=== PATIENT | female | born 1950 | race Caucasian/White ===

== ENCOUNTER 2018-08-25 16:52 | Inpatient (IN) ==
[2018-08-25] MEDS ORDERED: MoRPHine SULFATE 4 MG/ML 1 ML CARP\\VIAL IV STA (17:25)
[2018-08-25] MEDS ORDERED: SODIUM CHLORIDE 0.9% 1000ML 1,000 ML IV SCH (17:30)
[2018-08-25] MEDS ORDERED: ONDANSETRON INJ 2 MG/ML 2 ML VIAL ONE (17:58)
[2018-08-25 17:59] LABS: Basophils # (auto) 0.01 K/uL (0-0.2); Basophils % (auto) 0.1 %; Hemoglobin 11.4 g/dL (12.0-16.0); Immature Granulocytes # (auto) 0.04 K/uL (0.00-0.02); Immature Granulocytes % (auto) 0.3 %; Lymphocytes # (auto) 0.45 K/uL (1.2-3.4); Lymphocytes % (auto) 3.6 %; Mean Corpuscular Hgb Conc 32.6 g/dL (32-36); Mean Corpuscular Volume 90.2 fL (80-100); Mean Platelet Volume 9.3 fL (7.4-10.4); Monocytes % (auto) 5.6 %; Neutrophils # (auto) 11.34 K/uL (1.4-6.5); Neutrophils % (auto) 90.4 %; Platelet Count 360 K/uL (130-400); RDW Coefficient of Variation 15.8 % (11.5-14.5); RDW Standard Deviation 52.1 fL (36.4-46.3); Red Blood Count 3.88 M/uL (4.2-5.4); White Blood Count 12.54 K/uL (4.8-10.8)
[2018-08-25 18:07] LABS: Appearance Urine Clear (Clear); Bacteria Urine Automated Negative (Negative); Bilirubin Urine Negative (Negative); Blood Urine Negative (Negative); Cast Urine Automated 0 /lpf (0-5); Color Urine Yellow; Glucose Urine UA Negative (Negative); Ketones Urine Trace (Negative); Leukocyte Esterase Urine Negative (Negative); Nitrite Urine Negative (Negative); Protein Urine 2+ (Negative); RBC Urine Automated 0-4 /hpf (0-4); Urobilinogen Urine Negative (Negative); pH Urine 5.5 (4.5-7.5)
[2018-08-25] MEDS ORDERED: ONDANSETRON INJ 2 MG/ML 2 ML VIAL IV STA (18:15)
[2018-08-25 18:19] LABS: Alanine Aminotransferase 64 U/L (12-78); Albumin Level 3.7 gm/dl (3.4-5.0); Aspartate Aminotransferase 72 U/L (15-37); BUN Creatinine Ratio 17.9 (10-20); Blood Urea Nitrogen 19 mg/dl (7-18); Calcium 9.1 mg/dl (8.5-10.1); Carbon Dioxide 22 mmol/L (21-32); Chloride 101 mmol/L (98-107); Est GFR (African American) 62.8; Est GFR (Non-African American) 54.1; Glucose 125 mg/dl (70-99); Sodium 134 mmol/L (136-145)
[2018-08-25 18:24] LABS: Albumin Globulin Ratio 0.9 (0.9-2); Alkaline Phosphatase 101 U/L (45-117); Bilirubin,Total 1.2 mg/dl (0.2-1); Globulin 4.1 gm/dl (2.5-4.0); Total Protein 7.8 gm/dl (6.4-8.2); Troponin I < 0.015 ng/ml (0-0.045)
[2018-08-25] MEDS ORDERED: IOVERSOL 100ml IV PRN (18:43)
--- NOTE | 2018-08-25 19:24 | CT Scan Report ---
ABDOMEN AND PELVIS CT WITH IV CONTRAST CT DOSE: 322.60 mGy.cm HISTORY: Acute generalized abdominal pain diffuse ab pain TECHNIQUE: Multiaxial CT images of the abdomen and pelvis were performed following the use of intrave nous contrast. A dose lowering technique was utilized adhering to the principles of ALARA. COMPARISON STUDY: CT abdomen and pelvis 08/21/2017. FINDINGS: Subsegmental bibasilar atelectasis/scarring with moderate emphysema. Trace pleural effusions. Chronic moderate left hemidiaphragmatic elevation. Imaged inferior cardiac chambers are moderately enlarged with coronary arterial calcifications noted. Moderate gallbladder distention with mild gallbladder wall thickening. Suggested cyst of the right he patic lobe, 2.0 cm. Intrahepatic and extrahepatic biliary ductal dilation is noted with the common bi le duct measuring up to approximately 8 mm. No obstructing biliary stone or lesion identified. Hepati c steatosis with heterogeneous appearance of the hepatic parenchyma. Mild periportal edema. Mild amou nt of free fluid about the delon hepatis. Spleen, pancreas and adrenal glands are unremarkable. Marked atrophy with markedly decreased enhancement of the right kidney. Severe renal arterial stenosi s on the right. There is a least mild left-sided renal arterial stenosis with multifocal cortical sca rring about the left kidney. 10 mm left renal cyst about the interpolar distribution. Nonspecific amina ateral perinephric stranding. No renal or ureteral calculi. Urinary bladder is unremarkable. Prior hy sterectomy. No adnexal mass lesions. Pelvic structures are suboptimally visualized secondary to strea k artifact from left hip total joint arthroplasty. Extensive calcification of the abdominal aorta wit hout aneurysm. There is no adenopathy identified. Large volume pneumoperitoneum centered about the anterior central and upper abdomen. Mild gaseous dis tention of the duodenum. Wall thickening with moderate surrounding stranding and ascites is noted abo ut the gastric fundus and body. Pneumoperitoneum intermixed with ascites is noted measuring up to 6.8 x 3.8 cm and the left subdiaphragmatic distribution, image 65 series 3. There is a focal defect note d through the lesser curvature wall of the distal gastric body (image 258 series 3). The duodenum charlie ears unremarkable. There is mild rectal wall thickening. Colonic diverticulosis without acute diverti culitis. Trace ascites also noted about the pelvis. Mild generalized body wall edema. Left hip total joint arthroplasty. There is suggestion of minimal AVN about the right femoral head. Demineralized ap pearance the bones. Mild convex right curvature of the lumbar spine. Severe multilevel facet arthrosi s with spondylitic spurring. IMPRESSION: 1. Acute perforated gastric ulcer about the lesser curvature of the distal gastric body with large vo lume of upper abdominal pneumoperitoneum. Ascites intermixed with free air is noted about the left robert bdiaphragmatic distribution. There is no well loculated abscess identified at this time. Surgical con sultation is needed. 2. No bowel obstruction. 3. Colonic diverticulosis without acute diverticulitis. 4. Markedly atrophic right kidney with severe right-sided renal arterial stenosis. 5. Trace pleural effusions. 6. Additional findings as above. Electronically signed by: Chiki Brown M.D. 08/25/2018 7:22 PM
[2018-08-25] MEDS ORDERED: SODIUM CHLORIDE 0.9% 1000ML 1,000 ML IV ONE (19:28)
[2018-08-25] MEDS ORDERED: PIPERACILLIN/TAZOBACTAM 4.5 GM/120 ML BAG IV ONE (19:38)
[2018-08-25] MEDS ORDERED: PIPERACILL/TAZOBAC CONSULT ACTIVE PRN (19:38)
--- NOTE | 2018-08-25 19:49 | XRay Report ---
XR chest 1V portable HISTORY: 68 years-old Female sob acute shortness of breath COMPARISON: CT abdomen and pelvis of same day, chest radiograph 08/21/2018 TECHNIQUE: Portable AP view the chest FINDINGS: Cardiac silhouette is enlarged, unchanged. Calcification of the thoracic aortic arch. Chronic interst itial coarsening without pneumothorax, pleural effusion or overt pulmonary edema. Severe emphysema. L arge volume pneumoperitoneum. Degenerative changes of the shoulders and spine. IMPRESSION: 1. Large volume pneumoperitoneum. Please refer to CT abdomen and pelvis of same day for further detai ls. 2. Cardiomegaly without overt pulmonary edema. 3. Emphysema with chronic interstitial coarsening. The above report was generated using voice recognition software. It may contain grammatical, syntax o r spelling errors. Electronically signed by: Chiki Brown M.D. 08/25/2018 7:48 PM
[2018-08-25] MEDS ORDERED: PANTOprazole 80 MG in DEXTROSE 5% 100 ML IV ONE (20:00)
[2018-08-25] MEDS ORDERED: fentaNYL citrate 100 MCG/2 ML VIAL IV ONE (20:04)
[2018-08-25] MEDS ORDERED: PANTOprazole 40 MG in DEXTROSE 5% 100 ML IV SCH (20:15)
[2018-08-25] MEDS ORDERED: DEXAMETHASONE **PF** INJ 10 MG/ML VIAL IV ONE (20:32)
--- NOTE | 2018-08-25 20:33 | Emergency Department Note ---
Entered by Syed Butts acting as a scribe for Gregory Amador MD History of Present Illness General Chief complaint: Shortness of Breath/Dyspnea Stated complaint: PAIN IN ABDOMEN Time Seen by Provider: 08/25/18 17:05 Source: patient and family Limitations: no limitations History of Present Illness Provider complaint: Abd Pain Onset (ago): month(s) (1) Location: abdomen (Upper) Pain Consistency: + intermittent Maximum Pain Intensity: 8 Quality: + other ("Cramping") Associated symptoms: no fever/chills Treatments prior to arrival: other (Antibiotic, Prednisone) The patient is a 68 year old white female with a past medical history of hypertension, anemia, COPD, atrial ectopic tachycardia, CVA, and bigeminy who presents to the Emergency Room with complaints of abdominal pain for the past month. The patient describes her pain as an "intermittent cramping" sensation across her upper abdomen. The patient has tried Gas-X and Tums without any relief. She is urinating normally and has not noticed any blood in her urine or stool. The patient was here in the ED last week and the week prior for similar complaints, and she did see her primary care office 3 days ago as well. Home Medications Home Medications Medication Instructions Recorded Confirmed Type atorvastatin 80 mg PO HS 02/22/18 08/25/18 History multivitamin 1 tab PO QAM 02/22/18 08/25/18 History omega 4-evg-sgi-fish oil [Fish Oil] 1,000 mg PO QAM 02/22/18 08/25/18 History albuterol sulfate 2 puffs INH Q4H PRN #6.7 gm 08/21/18 08/25/18 Rx timolol maleate 1 drp OPL QA 08/21/18 08/25/18 History aspirin 325 mg PO QAM 08/25/18 08/25/18 History doxycycline hyclate 100 mg PO BID 08/25/18 08/25/18 History naproxen sodium [Aleve] 220 mg PO Q12H PRN 08/25/18 08/25/18 History prednisone 40 mg PO QAM 08/25/18 08/25/18 History Allergies Allergy/AdvReac Type Severity Reaction Status Date / Time hydrocodone Allergy Intermediate CONFUSION Verified 08/25/18 18:06 ramipril Allergy Intermediate Nausea Verified 08/25/18 18:06 Sulfa (Sulfonamide Allergy Intermediate Nausea Verified 08/25/18 18:06 Antibiotics) Past Med/Surg History Medical History Atrial ectopic tachycardia Hyperlipidemia CVA (cerebral vascular accident) HTN (hypertension) Hip fracture (Acute) Acute dyspnea (Inactive) Anemia (Inactive) Bigeminy (Inactive) GERD (gastroesophageal reflux disease) Hyperlipidemia Hypertension no meds currently Stroke Surgical History History of carotid endarterectomy History of cataract extraction History of hand surgery History of tonsillectomy Family History Other Family history non-contributory Social History Preferred Language: Portuguese Communication Ability: Effective Visual Impairment: No Limitations Beliefs That Will Affect Care: None marital status: Current Living Situation: Spouse Other Information That Helps Us Care for You: No Feels Safe at Home: Yes Safety Concerns: Feels Safe At This Time Smoking Status: Never smoker Hx Alcohol Use: No Hx Substance Use: No Review of Systems See HPI for pertinent positives & negatives. and A total of 10 systems reviewed and were otherwise negative Physical Exam Vital Signs Vital Signs - 24 hr 08/25/18 16:58 08/25/18 17:12 08/25/18 17:20 Temperature 36.6 C Temperature Source Oral Sepsis Recent Fever Within 48 Hours No Sepsis New/Unexplained Change in Mental Status No Sepsis Action Taken by Nursing No Action Required Pulse Rate 61 108 H 104 H Pulse Rate [Apical] Pulse Rate from SpO2 Sensor Pulse Rhythm Regular Pulse Rhythm [Apical] Pulse Strength Normal Pulse Strength [Apical] Respiratory Rate 20 25 H 27 H Respiratory Effort / Characteristics Non-Labored Spontaneous Respiratory Depth Normal Respiratory Pattern Regular Blood Pressure 108/72 Blood Pressure [Right Arm] Blood Pressure Mean 84 Blood Pressure Mean [Right Arm] Blood Pressure Position Sitting Blood Pressure Position [Right Arm] Pulse Oximetry 99 Oxygen Delivery Method Room Air Oxygen Flow Rate 08/25/18 17:28 08/25/18 17:30 08/25/18 17:40 Temperature Temperature Source Sepsis Recent Fever Within 48 Hours Sepsis New/Unexplained Change in Mental Status Sepsis Action Taken by Nursing Pulse Rate 107 H 114 H Pulse Rate [Apical] Pulse Rate from SpO2 Sensor 107 H 125 H Pulse Rhythm Pulse Rhythm [Apical] Pulse Strength Pulse Strength [Apical] Respiratory Rate 25 H 23 Respiratory Effort / Characteristics Respiratory Depth Respiratory Pattern Blood Pressure Blood Pressure [Right Arm] Blood Pressure Mean Blood Pressure Mean [Right Arm] Blood Pressure Position Blood Pressure Position [Right Arm] Pulse Oximetry 100 100 96 Oxygen Delivery Method Room Air Oxygen Flow Rate 08/25/18 17:50 08/25/18 17:56 08/25/18 18:00 Temperature Temperature Source Sepsis Recent Fever Within 48 Hours Sepsis New/Unexplained Change in Mental Status Sepsis Action Taken by Nursing Pulse Rate 104 H 110 H Pulse Rate [Apical] Pulse Rate from SpO2 Sensor 93 H Pulse Rhythm Pulse Rhythm [Apical] Pulse Strength Pulse Strength [Apical] Respiratory Rate 23 20 Respiratory Effort / Characteristics Respiratory Depth Respiratory Pattern Blood Pressure 99/75 L Blood Pressure [Right Arm] Blood Pressure Mean 83 Blood Pressure Mean [Right Arm] Blood Pressure Position Blood Pressure Position [Right Arm] Pulse Oximetry 97 100 Oxygen Delivery Method Room Air Oxygen Flow Rate 08/25/18 18:01 08/25/18 18:03 08/25/18 18:10 Temperature Temperature Source Sepsis Recent Fever Within 48 Hours Sepsis New/Unexplained Change in Mental Status Sepsis Action Taken by Nursing Pulse Rate 111 H 109 H 100 H Pulse Rate [Apical] Pulse Rate from SpO2 Sensor 105 H 94 H 102 H Pulse Rhythm Pulse Rhythm [Apical] Pulse Strength Pulse Strength [Apical] Respiratory Rate 24 27 H 25 H Respiratory Effort / Characteristics Respiratory Depth Respiratory Pattern Blood Pressure 98/75 L Blood Pressure [Right Arm] Blood Pressure Mean 82 Blood Pressure Mean [Right Arm] Blood Pressure Position Blood Pressure Position [Right Arm] Pulse Oximetry 96 93 96 Oxygen Delivery Method Oxygen Flow Rate 08/25/18 18:20 08/25/18 18:22 08/25/18 18:30 Temperature Temperature Source Sepsis Recent Fever Within 48 Hours Sepsis New/Unexplained Change in Mental Status Sepsis Action Taken by Nursing Pulse Rate 104 H 103 H Pulse Rate [Apical] Pulse Rate from SpO2 Sensor 97 H 97 H Pulse Rhythm Pulse Rhythm [Apical] Pulse Strength Pulse Strength [Apical] Respiratory Rate 21 20 Respiratory Effort / Characteristics Respiratory Depth Respiratory Pattern Blood Pressure Blood Pressure [Right Arm] Blood Pressure Mean Blood Pressure Mean [Right Arm] Blood Pressure Position Blood Pressure Position [Right Arm] Pulse Oximetry 94 100 99 Oxygen Delivery Method Nasal Cannula Oxygen Flow Rate 2 08/25/18 18:32 08/25/18 18:40 08/25/18 18:53 Temperature Temperature Source Sepsis Recent Fever Within 48 Hours Sepsis New/Unexplained Change in Mental Status Sepsis Action Taken by Nursing Pulse Rate 102 H 109 H 114 H Pulse Rate [Apical] Pulse Rate from SpO2 Sensor 94 H Pulse Rhythm Pulse Rhythm [Apical] Pulse Strength Pulse Strength [Apical] Respiratory Rate 21 24 23 Respiratory Effort / Characteristics Respiratory Depth Respiratory Pattern Blood Pressure 105/72 Blood Pressure [Right Arm] Blood Pressure Mean 83 Blood Pressure Mean [Right Arm] Blood Pressure Position Blood Pressure Position [Right Arm] Pulse Oximetry 100 Oxygen Delivery Method Oxygen Flow Rate 08/25/18 19:00 08/25/18 19:02 08/25/18 19:04 Temperature Temperature Source Sepsis Recent Fever Within 48 Hours Sepsis New/Unexplained Change in Mental Status Sepsis Action Taken by Nursing Pulse Rate 113 H 110 H 109 H Pulse Rate [Apical] Pulse Rate from SpO2 Sensor Pulse Rhythm Pulse Rhythm [Apical] Pulse Strength Pulse Strength [Apical] Respiratory Rate 20 22 22 Respiratory Effort / Characteristics Respiratory Depth Respiratory Pattern Blood Pressure 82/51 L Blood Pressure [Right Arm] Blood Pressure Mean 61 Blood Pressure Mean [Right Arm] Blood Pressure Position Blood Pressure Position [Right Arm] Pulse Oximetry Oxygen Delivery Method Oxygen Flow Rate 08/25/18 19:05 08/25/18 19:09 08/25/18 19:10 Temperature Temperature Source Sepsis Recent Fever Within 48 Hours Sepsis New/Unexplained Change in Mental Status Sepsis Action Taken by Nursing Pulse Rate 106 H 111 H 111 H Pulse Rate [Apical] Pulse Rate from SpO2 Sensor Pulse Rhythm Pulse Rhythm [Apical] Pulse Strength Pulse Strength [Apical] Respiratory Rate 21 23 24 Respiratory Effort / Characteristics Respiratory Depth Respiratory Pattern Blood Pressure 86/65 L Blood Pressure [Right Arm] Blood Pressure Mean 72 Blood Pressure Mean [Right Arm] Blood Pressure Position Blood Pressure Position [Right Arm] Pulse Oximetry Oxygen Delivery Method Oxygen Flow Rate 08/25/18 19:18 08/25/18 19:19 08/25/18 19:20 Temperature Temperature Source Sepsis Recent Fever Within 48 Hours Sepsis New/Unexplained Change in Mental Status Sepsis Action Taken by Nursing Pulse Rate 108 H Pulse Rate [Apical] Pulse Rate from SpO2 Sensor 56 L Pulse Rhythm Pulse Rhythm [Apical] Pulse Strength Pulse Strength [Apical] Respiratory Rate 24 Respiratory Effort / Characteristics Respiratory Depth Respiratory Pattern Blood Pressure Blood Pressure [Right Arm] Blood Pressure Mean Blood Pressure Mean [Right Arm] Blood Pressure Position Blood Pressure Position [Right Arm] Pulse Oximetry 82 L 95 Oxygen Delivery Method Room Air Nasal Cannula Oxygen Flow Rate 3 08/25/18 19:30 08/25/18 19:31 08/25/18 19:40 Temperature Temperature Source Sepsis Recent Fever Within 48 Hours Sepsis New/Unexplained Change in Mental Status Sepsis Action Taken by Nursing Pulse Rate 106 H 108 H 109 H Pulse Rate [Apical] Pulse Rate from SpO2 Sensor 98 H 98 H 100 H Pulse Rhythm Pulse Rhythm [Apical] Pulse Strength Pulse Strength [Apical] Respiratory Rate 23 23 20 Respiratory Effort / Characteristics Respiratory Depth Respiratory Pattern Blood Pressure 120/80 Blood Pressure [Right Arm] Blood Pressure Mean 93 Blood Pressure Mean [Right Arm] Blood Pressure Position Blood Pressure Position [Right Arm] Pulse Oximetry 91 96 92 Oxygen Delivery Method Oxygen Flow Rate 08/25/18 19:50 08/25/18 20:00 08/25/18 20:02 Temperature Temperature Source Sepsis Recent Fever Within 48 Hours Sepsis New/Unexplained Change in Mental Status Sepsis Action Taken by Nursing Pulse Rate 109 H 111 H 116 H Pulse Rate [Apical] Pulse Rate from SpO2 Sensor 92 H 100 H 91 H Pulse Rhythm Pulse Rhythm [Apical] Pulse Strength Pulse Strength [Apical] Respiratory Rate 21 22 Respiratory Effort / Characteristics Respiratory Depth Respiratory Pattern Blood Pressure Blood Pressure [Right Arm] Blood Pressure Mean 81 Blood Pressure Mean [Right Arm] Blood Pressure Position Blood Pressure Position [Right Arm] Pulse Oximetry 100 92 96 Oxygen Delivery Method Oxygen Flow Rate 08/25/18 20:10 08/25/18 20:20 08/25/18 20:30 Temperature Temperature Source Sepsis Recent Fever Within 48 Hours Sepsis New/Unexplained Change in Mental Status Sepsis Action Taken by Nursing Pulse Rate 108 H 109 H 109 H Pulse Rate [Apical] Pulse Rate from SpO2 Sensor 98 H 74 Pulse Rhythm Pulse Rhythm [Apical] Pulse Strength Pulse Strength [Apical] Respiratory Rate 22 24 21 Respiratory Effort / Characteristics Respiratory Depth Respiratory Pattern Blood Pressure Blood Pressure [Right Arm] Blood Pressure Mean Blood Pressure Mean [Right Arm] Blood Pressure Position Blood Pressure Position [Right Arm] Pulse Oximetry 96 91 Oxygen Delivery Method Oxygen Flow Rate 08/25/18 20:31 08/25/18 20:40 08/25/18 20:50 Temperature Temperature Source Sepsis Recent Fever Within 48 Hours Sepsis New/Unexplained Change in Mental Status Sepsis Action Taken by Nursing Pulse Rate 109 H 107 H 108 H Pulse Rate [Apical] Pulse Rate from SpO2 Sensor 88 100 H 61 Pulse Rhythm Pulse Rhythm [Apical] Pulse Strength Pulse Strength [Apical] Respiratory Rate 24 22 26 H Respiratory Effort / Characteristics Respiratory Depth Respiratory Pattern Blood Pressure 101/78 Blood Pressure [Right Arm] Blood Pressure Mean 85 Blood Pressure Mean [Right Arm] Blood Pressure Position Blood Pressure Position [Right Arm] Pulse Oximetry 92 96 94 Oxygen Delivery Method Oxygen Flow Rate 08/25/18 23:50 08/25/18 23:55 08/26/18 00:00 Temperature 36.2 C L Temperature Source Oral Sepsis Recent Fever Within 48 Hours Sepsis New/Unexplained Change in Mental Status Sepsis Action Taken by Nursing Pulse Rate 114 H Pulse Rate [Apical] 116 H 115 H 113 H Pulse Rate from SpO2 Sensor Pulse Rhythm Pulse Rhythm [Apical] Pulse Strength Pulse Strength [Apical] Respiratory Rate 17 19 18 Respiratory Effort / Characteristics Respiratory Depth Respiratory Pattern Blood Pressure Blood Pressure [Right Arm] 97/72 L 119/100 Blood Pressure Mean Blood Pressure Mean [Right Arm] 80 106 Blood Pressure Position Blood Pressure Position [Right Arm] Pulse Oximetry 100 Oxygen Delivery Method Oxymask Oxygen Flow Rate 10 10 10 08/26/18 00:01 08/26/18 00:05 08/26/18 00:10 Temperature Temperature Source Sepsis Recent Fever Within 48 Hours Sepsis New/Unexplained Change in Mental Status Sepsis Action Taken by Nursing Pulse Rate 108 H Pulse Rate [Apical] 109 H 108 H Pulse Rate from SpO2 Sensor Pulse Rhythm Pulse Rhythm [Apical] Pulse Strength Pulse Strength [Apical] Respiratory Rate 23 22 20 Respiratory Effort / Characteristics Respiratory Depth Respiratory Pattern Blood Pressure 119/101 H Blood Pressure [Right Arm] 94/77 L 126/67 Blood Pressure Mean 107 Blood Pressure Mean [Right Arm] 82 86 Blood Pressure Position Blood Pressure Position [Right Arm] Pulse Oximetry 98 99 Oxygen Delivery Method Oxymask Oxymask Oxygen Flow Rate 10 5 08/26/18 00:13 08/26/18 00:15 08/26/18 00:16 Temperature 36.4 C L Temperature Source Oral Sepsis Recent Fever Within 48 Hours Sepsis New/Unexplained Change in Mental Status Sepsis Action Taken by Nursing Pulse Rate 108 H 109 H Pulse Rate [Apical] 104 H Pulse Rate from SpO2 Sensor 111 H 106 H Pulse Rhythm Pulse Rhythm [Apical] Pulse Strength Pulse Strength [Apical] Respiratory Rate 26 H 22 22 Respiratory Effort / Characteristics Respiratory Depth Respiratory Pattern Blood Pressure 94/77 L 127/67 Blood Pressure [Right Arm] 93/73 L Blood Pressure Mean 82 87 Blood Pressure Mean [Right Arm] 79 Blood Pressure Position Blood Pressure Position [Right Arm] Pulse Oximetry 98 98 97 Oxygen Delivery Method Oxymask Oxygen Flow Rate 5 08/26/18 00:18 08/26/18 00:22 08/26/18 00:26 Temperature 36.4 C L Temperature Source Oral Sepsis Recent Fever Within 48 Hours Sepsis New/Unexplained Change in Mental Status Sepsis Action Taken by Nursing Pulse Rate 105 H 104 H Pulse Rate [Apical] 104 H Pulse Rate from SpO2 Sensor 106 H 100 H Pulse Rhythm Pulse Rhythm [Apical] Irregular Pulse Strength Pulse Strength [Apical] Weak Respiratory Rate 16 15 20 Respiratory Effort / Characteristics Non-Labored Spontaneous Respiratory Depth Normal Respiratory Pattern Regular Blood Pressure 93/79 L 92/64 L Blood Pressure [Right Arm] 88/56 L Blood Pressure Mean 83 73 Blood Pressure Mean [Right Arm] 66 Blood Pressure Position Blood Pressure Position [Right Arm] Sitting Pulse Oximetry 94 99 94 Oxygen Delivery Method Oxymask Oxygen Flow Rate 6 08/26/18 00:31 08/26/18 00:36 08/26/18 00:42 Temperature Temperature Source Sepsis Recent Fever Within 48 Hours Sepsis New/Unexplained Change in Mental Status Sepsis Action Taken by Nursing Pulse Rate 108 H 107 H 111 H Pulse Rate [Apical] Pulse Rate from SpO2 Sensor 106 H 110 H 117 H Pulse Rhythm Pulse Rhythm [Apical] Pulse Strength Pulse Strength [Apical] Respiratory Rate 24 19 18 Respiratory Effort / Characteristics Respiratory Depth Respiratory Pattern Blood Pressure 94/77 L 100/66 94/67 L Blood Pressure [Right Arm] Blood Pressure Mean 82 77 76 Blood Pressure Mean [Right Arm] Blood Pressure Position Blood Pressure Position [Right Arm] Pulse Oximetry 97 93 96 Oxygen Delivery Method Oxygen Flow Rate 08/26/18 00:47 08/26/18 00:57 08/26/18 01:00 Temperature Temperature Source Sepsis Recent Fever Within 48 Hours Sepsis New/Unexplained Change in Mental Status Sepsis Action Taken by Nursing Pulse Rate 105 H 99 H 99 H Pulse Rate [Apical] Pulse Rate from SpO2 Sensor 111 H 97 H 97 H Pulse Rhythm Pulse Rhythm [Apical] Pulse Strength Pulse Strength [Apical] Respiratory Rate 19 22 14 Respiratory Effort / Characteristics Respiratory Depth Respiratory Pattern Blood Pressure 77/56 L 83/59 L Blood Pressure [Right Arm] Blood Pressure Mean 63 67 Blood Pressure Mean [Right Arm] Blood Pressure Position Blood Pressure Position [Right Arm] Pulse Oximetry 97 92 85 L Oxygen Delivery Method Oxygen Flow Rate 08/26/18 01:05 08/26/18 01:18 08/26/18 01:21 Temperature Temperature Source Sepsis Recent Fever Within 48 Hours Sepsis New/Unexplained Change in Mental Status Sepsis Action Taken by Nursing Pulse Rate 99 H 100 H 96 H Pulse Rate [Apical] Pulse Rate from SpO2 Sensor 100 H 106 H 99 H Pulse Rhythm Pulse Rhythm [Apical] Pulse Strength Pulse Strength [Apical] Respiratory Rate 18 17 10 L Respiratory Effort / Characteristics Respiratory Depth Respiratory Pattern Blood Pressure 71/56 L 96/57 L 72/46 L Blood Pressure [Right Arm] Blood Pressure Mean 61 70 54 Blood Pressure Mean [Right Arm] Blood Pressure Position Blood Pressure Position [Right Arm] Pulse Oximetry 97 91 95 Oxygen Delivery Method Oxygen Flow Rate 08/26/18 01:30 08/26/18 01:43 08/26/18 01:50 Temperature Temperature Source Sepsis Recent Fever Within 48 Hours Sepsis New/Unexplained Change in Mental Status Sepsis Action Taken by Nursing Pulse Rate 95 H 95 H 94 H Pulse Rate [Apical] Pulse Rate from SpO2 Sensor 98 H 98 H 98 H Pulse Rhythm Pulse Rhythm [Apical] Pulse Strength Pulse Strength [Apical] Respiratory Rate 12 10 L 9 L Respiratory Effort / Characteristics Respiratory Depth Respiratory Pattern Blood Pressure 85/50 L 67/41 L Blood Pressure [Right Arm] Blood Pressure Mean 61 49 Blood Pressure Mean [Right Arm] Blood Pressure Position Blood Pressure Position [Right Arm] Pulse Oximetry 95 97 98 Oxygen Delivery Method Oxygen Flow Rate 08/26/18 01:52 08/26/18 01:57 08/26/18 01:58 Temperature Temperature Source Sepsis Recent Fever Within 48 Hours Sepsis New/Unexplained Change in Mental Status Sepsis Action Taken by Nursing Pulse Rate 101 H 97 H Pulse Rate [Apical] 84 Pulse Rate from SpO2 Sensor 99 H 101 H Pulse Rhythm Pulse Rhythm [Apical] Pulse Strength Pulse Strength [Apical] Respiratory Rate 16 14 7 L Respiratory Effort / Characteristics Non-Labored Spontaneous Respiratory Depth Respiratory Pattern Blood Pressure Blood Pressure [Right Arm] Blood Pressure Mean 72 60 Blood Pressure Mean [Right Arm] Blood Pressure Position Blood Pressure Position [Right Arm] Pulse Oximetry 98 97 89 L Oxygen Delivery Method Oxymask Oxygen Flow Rate 7 08/26/18 02:00 08/26/18 02:17 08/26/18 02:36 Temperature Temperature Source Sepsis Recent Fever Within 48 Hours Sepsis New/Unexplained Change in Mental Status Sepsis Action Taken by Nursing Pulse Rate 100 H 100 H 120 H Pulse Rate [Apical] Pulse Rate from SpO2 Sensor 99 H 98 H 125 H Pulse Rhythm Pulse Rhythm [Apical] Pulse Strength Pulse Strength [Apical] Respiratory Rate 15 12 26 H Respiratory Effort / Characteristics Respiratory Depth Respiratory Pattern Blood Pressure 67/45 L 89/63 L Blood Pressure [Right Arm] Blood Pressure Mean 52 71 Blood Pressure Mean [Right Arm] Blood Pressure Position Blood Pressure Position [Right Arm] Pulse Oximetry 96 87 L 100 Oxygen Delivery Method Oxygen Flow Rate 08/26/18 02:41 08/26/18 02:51 08/26/18 03:00 Temperature Temperature Source Sepsis Recent Fever Within 48 Hours Sepsis New/Unexplained Change in Mental Status Sepsis Action Taken by Nursing Pulse Rate 113 H 105 H 99 H Pulse Rate [Apical] Pulse Rate from SpO2 Sensor 113 H 111 H 97 H Pulse Rhythm Pulse Rhythm [Apical] Pulse Strength Pulse Strength [Apical] Respiratory Rate 22 19 21 Respiratory Effort / Characteristics Respiratory Depth Respiratory Pattern Blood Pressure 86/66 L 89/65 L Blood Pressure [Right Arm] Blood Pressure Mean 72 73 Blood Pressure Mean [Right Arm] Blood Pressure Position Blood Pressure Position [Right Arm] Pulse Oximetry 100 100 100 Oxygen Delivery Method Oxygen Flow Rate 08/26/18 03:02 08/26/18 04:01 08/26/18 04:20 Temperature 36.5 C 36.4 C L Temperature Source Sepsis Recent Fever Within 48 Hours Sepsis New/Unexplained Change in Mental Status Sepsis Action Taken by Nursing Pulse Rate 102 H 99 H 99 H Pulse Rate [Apical] Pulse Rate from SpO2 Sensor 97 H 98 H 97 H Pulse Rhythm Pulse Rhythm [Apical] Pulse Strength Pulse Strength [Apical] Respiratory Rate 22 16 19 Respiratory Effort / Characteristics Respiratory Depth Respiratory Pattern Blood Pressure 89/66 L 103/56 L 80/62 L Blood Pressure [Right Arm] Blood Pressure Mean 73 71 68 Blood Pressure Mean [Right Arm] Blood Pressure Position Blood Pressure Position [Right Arm] Pulse Oximetry 100 88 L 96 Oxygen Delivery Method Oxygen Flow Rate 08/26/18 04:35 08/26/18 04:50 08/26/18 05:01 Temperature Temperature Source Sepsis Recent Fever Within 48 Hours Sepsis New/Unexplained Change in Mental Status Sepsis Action Taken by Nursing Pulse Rate 97 H 98 H 95 H Pulse Rate [Apical] Pulse Rate from SpO2 Sensor 98 H 97 H 96 H Pulse Rhythm Pulse Rhythm [Apical] Pulse Strength Pulse Strength [Apical] Respiratory Rate 25 H 24 29 H Respiratory Effort / Characteristics Respiratory Depth Respiratory Pattern Blood Pressure 78/59 L 79/59 L 70/45 L Blood Pressure [Right Arm] Blood Pressure Mean 65 65 53 Blood Pressure Mean [Right Arm] Blood Pressure Position Blood Pressure Position [Right Arm] Pulse Oximetry 99 94 100 Oxygen Delivery Method Oxygen Flow Rate 08/26/18 06:03 08/26/18 06:16 08/26/18 07:13 Temperature Temperature Source Sepsis Recent Fever Within 48 Hours Sepsis New/Unexplained Change in Mental Status Sepsis Action Taken by Nursing Pulse Rate 95 H 98 H Pulse Rate [Apical] 95 H Pulse Rate from SpO2 Sensor 95 H 98 H Pulse Rhythm Pulse Rhythm [Apical] Pulse Strength Pulse Strength [Apical] Respiratory Rate 28 H 23 18 Respiratory Effort / Characteristics Spontaneous Respiratory Depth Respiratory Pattern Blood Pressure 142/85 H 126/89 Blood Pressure [Right Arm] Blood Pressure Mean 104 101 Blood Pressure Mean [Right Arm] Blood Pressure Position Blood Pressure Position [Right Arm] Pulse Oximetry 99 100 99 Oxygen Delivery Method Oxymask Oxygen Flow Rate 3 08/26/18 07:52 08/26/18 08:00 08/26/18 08:01 Temperature 36.6 C 36.6 C Temperature Source Oral Oral Sepsis Recent Fever Within 48 Hours Sepsis New/Unexplained Change in Mental Status Sepsis Action Taken by Nursing Pulse Rate 101 H 102 H Pulse Rate [Apical] Pulse Rate from SpO2 Sensor Pulse Rhythm Pulse Rhythm [Apical] Pulse Strength Pulse Strength [Apical] Respiratory Rate 17 19 Respiratory Effort / Characteristics Respiratory Depth Respiratory Pattern Blood Pressure 103/70 112/58 L Blood Pressure [Right Arm] Blood Pressure Mean 81 76 Blood Pressure Mean [Right Arm] Blood Pressure Position Semi-fowlers Blood Pressure Position [Right Arm] Pulse Oximetry 100 99 Oxygen Delivery Method Oxymask Oxygen Flow Rate 3 3 08/26/18 08:15 08/26/18 08:30 08/26/18 08:45 Temperature 36.7 C Temperature Source Oral Sepsis Recent Fever Within 48 Hours Sepsis New/Unexplained Change in Mental Status Sepsis Action Taken by Nursing Pulse Rate 96 H 96 H 97 H Pulse Rate [Apical] Pulse Rate from SpO2 Sensor Pulse Rhythm Pulse Rhythm [Apical] Pulse Strength Pulse Strength [Apical] Respiratory Rate 14 17 19 Respiratory Effort / Characteristics Respiratory Depth Respiratory Pattern Blood Pressure 129/79 125/73 134/72 Blood Pressure [Right Arm] Blood Pressure Mean 95 90 92 Blood Pressure Mean [Right Arm] Blood Pressure Position Blood Pressure Position [Right Arm] Pulse Oximetry 95 100 100 Oxygen Delivery Method Oxygen Flow Rate 3 08/26/18 08:50 08/26/18 09:00 08/26/18 09:01 Temperature 36.7 C Temperature Source Oral Sepsis Recent Fever Within 48 Hours Sepsis New/Unexplained Change in Mental Status Sepsis Action Taken by Nursing Pulse Rate 92 H 93 H Pulse Rate [Apical] Pulse Rate from SpO2 Sensor Pulse Rhythm Pulse Rhythm [Apical] Pulse Strength Pulse Strength [Apical] Respiratory Rate 19 22 Respiratory Effort / Characteristics Non-Labored Spontaneous SOB on Exertion Respiratory Depth Normal Respiratory Pattern Regular Blood Pressure 123/73 123/73 Blood Pressure [Right Arm] Blood Pressure Mean 89 89 Blood Pressure Mean [Right Arm] Blood Pressure Position Blood Pressure Position [Right Arm] Pulse Oximetry 98 100 Oxygen Delivery Method Oxymask Oxygen Flow Rate 3 3 3 08/26/18 09:16 08/26/18 09:27 08/26/18 10:00 Temperature 36.7 C 36.7 C Temperature Source Oral Oral Sepsis Recent Fever Within 48 Hours Sepsis New/Unexplained Change in Mental Status Sepsis Action Taken by Nursing Pulse Rate 103 H 88 Pulse Rate [Apical] Pulse Rate from SpO2 Sensor Pulse Rhythm Pulse Rhythm [Apical] Pulse Strength Pulse Strength [Apical] Respiratory Rate 24 22 Respiratory Effort / Characteristics Respiratory Depth Respiratory Pattern Blood Pressure 113/67 105/55 L Blood Pressure [Right Arm] Blood Pressure Mean 82 71 Blood Pressure Mean [Right Arm] Blood Pressure Position Blood Pressure Position [Right Arm] Pulse Oximetry 93 98 100 Oxygen Delivery Method Room Air Oxymask Oxygen Flow Rate 3 3 3 08/26/18 10:06 08/26/18 10:15 08/26/18 10:31 Temperature 36.6 C 36.5 C 36.5 C Temperature Source Oral Oral Oral Sepsis Recent Fever Within 48 Hours Sepsis New/Unexplained Change in Mental Status Sepsis Action Taken by Nursing Pulse Rate 90 90 88 Pulse Rate [Apical] Pulse Rate from SpO2 Sensor Pulse Rhythm Pulse Rhythm [Apical] Pulse Strength Pulse Strength [Apical] Respiratory Rate 17 17 16 Respiratory Effort / Characteristics Respiratory Depth Respiratory Pattern Blood Pressure 110/69 92/55 L Blood Pressure [Right Arm] Blood Pressure Mean 82 67 Blood Pressure Mean [Right Arm] Blood Pressure Position Blood Pressure Position [Right Arm] Pulse Oximetry 99 95 100 Oxygen Delivery Method Oxygen Flow Rate 3 3 3 08/26/18 10:32 08/26/18 10:46 08/26/18 10:52 Temperature 36.7 C Temperature Source Oral Sepsis Recent Fever Within 48 Hours Sepsis New/Unexplained Change in Mental Status Sepsis Action Taken by Nursing Pulse Rate 90 96 H 90 Pulse Rate [Apical] Pulse Rate from SpO2 Sensor Pulse Rhythm Pulse Rhythm [Apical] Pulse Strength Pulse Strength [Apical] Respiratory Rate 21 23 18 Respiratory Effort / Characteristics Respiratory Depth Respiratory Pattern Blood Pressure 96/64 L Blood Pressure [Right Arm] Blood Pressure Mean 74 Blood Pressure Mean [Right Arm] Blood Pressure Position Blood Pressure Position [Right Arm] Pulse Oximetry 100 100 100 Oxygen Delivery Method Oxygen Flow Rate 08/26/18 11:01 08/26/18 11:21 08/26/18 12:15 Temperature 36.7 C Temperature Source Oral Sepsis Recent Fever Within 48 Hours Sepsis New/Unexplained Change in Mental Status Sepsis Action Taken by Nursing Pulse Rate 96 H 86 92 H Pulse Rate [Apical] Pulse Rate from SpO2 Sensor Pulse Rhythm Regular Regular Pulse Rhythm [Apical] Pulse Strength Normal Pulse Strength [Apical] Respiratory Rate 20 17 17 Respiratory Effort / Characteristics Respiratory Depth Respiratory Pattern Blood Pressure 126/69 100/67 101/73 Blood Pressure [Right Arm] Blood Pressure Mean 88 78 82 Blood Pressure Mean [Right Arm] Blood Pressure Position Lying Lying Blood Pressure Position [Right Arm] Pulse Oximetry 100 100 100 Oxygen Delivery Method Oxygen Flow Rate 3 GENERAL: Well appearing, well nourished, NAD, non-toxic. EYE EXAM: Normal conjunctiva. PERRL, no anisocoria and EOM's grossly intact w/o pain. OROPHARYNX: Mucous membranes are moist. Normal dentition. NECK: Supple, no nuchal rigidity, no adenopathy, non-tender. no signs of meningismus. LUNGS: Clear to auscultation. Normal chest wall mechanics. HEART: Tachycardic. Occasionally irregular rhythm. No MRG. ABDOMEN: Abdomen soft, mild diffuse abdominal discomfort, negative obturators, negative Psoas. Normo-active bowel sounds, no masses, no rebound or guarding. BACK: No CVA TTP. SKIN: No rashes and no bruising. UPPER EXTREMITIES: Upper extremities are grossly normal. LOWER EXTREMITIES: No pitting edema. No calf pain. NEURO EXAM: Awake, alert, and oriented x3. Cranial nerves II-XII grossly intact. Moves all 4 extremities on command w/o issue. Course 1713: The patient was evaluated in room C10, and a complete history and physical examination were performed. 1927: I checked on the patient at this time. She is stable. 1954: I updated the patient. Awaiting Gen Surg consult. 2001: I reviewed the patient's case with Dr. Hughes - General Surgery. [] will evaluate the patient for further management. Administered Medications Fentanyl Citrate (Fentanyl Citrate) 12.5 mcg IV Q1H PRN PRN Reason: Pain Stop: 09/09/18 02:18 Last Admin: 08/26/18 07:37 Dose: 12.5 mcg Documented by: [id number] Lactated Ringer's (Lr) 1,000 mls @ 50 mls/hr IV .Q20H [facility] Stop: 09/24/18 21:14 Last Infusion: 08/26/18 12:58 Dose: 60 mls/hr Documented by: [id number] Infusion: 08/26/18 08:04 Dose: 0 mls/hr Documented by: [id number] Admin: 08/26/18 07:31 Dose: 60 mls/hr Documented by: [id number] Infusion: 08/26/18 07:31 Dose: 60 mls/hr Documented by: [id number] Infusion: 08/26/18 00:42 Dose: 60 mls/hr Documented by: [id number] Admin: 08/26/18 00:37 Dose: 150 mls/hr Documented by: [id number] Acetaminophen (Ofirmev) 65 mls @ 200 mls/hr IV Q6H PRN PRN Reason: Fever Stop: 09/24/18 21:14 Last Infusion: 08/26/18 09:07 Dose: 0 mls/hr Documented by: [id number] Admin: 08/26/18 08:47 Dose: 200 mls/hr Documented by: [id number] Piperacillin Sod/Tazobactam (Sod 3.375 gm/ Dextrose) 115 mls @ 28.75 mls/hr IV Q8H [facility]; Protocol Stop: 09/05/18 01:59 Last Infusion: 08/26/18 11:14 Dose: 0 mls/hr Documented by: [id number] Admin: 08/26/18 07:44 Dose: 28.8 mls/hr Documented by: [id number] Infusion: 08/26/18 05:41 Dose: 0 mls/hr Documented by: [id number] Admin: 08/26/18 01:34 Dose: 28.8 mls/hr Documented by: [id number] Pantoprazole Sodium 40 mg/ (Syringe) 10 mls @ 5 mls/min IV BID@0900,2100 [facility] Stop: 09/25/18 08:59 Last Admin: 08/26/18 07:31 Dose: 5 mls/min Documented by: [id number] Phenylephrine HCl 20 mg/ (Dextrose) 502 mls @ 34.7 mls/hr IV .[id number] [facility]; Protocol Stop: 09/25/18 02:31 Last Admin: 08/26/18 09:03 Dose: Not Given Documented by: [id number] Titration: 08/26/18 09:02 Dose: 0 mcg/kg/min, 0 mls/hr Documented by: [id number] Titration: 08/26/18 08:46 Dose: 0.4 mcg/kg/min, 34.7 mls/hr Documented by: [id number] Titration: 08/26/18 08:35 Dose: 0.6 mcg/kg/min, 52.1 mls/hr Documented by: [id number] Titration: 08/26/18 08:22 Dose: 0.8 mcg/kg/min, 69.4 mls/hr Documented by: [id number] Titration: 08/26/18 07:44 Dose: 1 mcg/kg/min, 86.8 mls/hr Documented by: [id number] Titration: 08/26/18 07:01 Dose: 1.1 mcg/kg/min, 95.4 mls/hr Documented by: [id number] Cosigned by: [id number] Titration: 08/26/18 06:06 Dose: 1.1 mcg/kg/min, 95.4 mls/hr Documented by: [id number] Titration: 08/26/18 05:43 Dose: 1.5 mcg/kg/min, 130.1 mls/hr Documented by: [id number] Titration: 08/26/18 05:20 Dose: 1.3 mcg/kg/min, 112.8 mls/hr Documented by: [id number] Titration: 08/26/18 05:10 Dose: 1.1 mcg/kg/min, 95.4 mls/hr Documented by: [id number] Titration: 08/26/18 04:51 Dose: 0.9 mcg/kg/min, 78.1 mls/hr Documented by: [id number] Titration: 08/26/18 04:32 Dose: 0.7 mcg/kg/min, 60.7 mls/hr Documented by: [id number] Admin: 08/26/18 03:47 Dose: 0.5 mcg/kg/min, 43.4 mls/hr Documented by: [id number] Cosigned by: [id number] Ipratropium [place] (Atrovent 0.02% 0.5mg/2.5ml) 0.5 mg INH Q6R [facility] Stop: 09/25/18 01:59 Last Admin: 08/26/18 07:13 Dose: 0.5 mg Documented by: [id number] Admin: 08/26/18 01:57 Dose: 0.5 mg Documented by: [id number] Levalbuterol HCl (Xopenex 1.25mg/0.5ml Neb) 1.25 mg INH Q6R [facility] Stop: 09/25/18 01:59 Last Admin: 08/26/18 07:13 Dose: 1.25 mg Documented by: [id number] Admin: 08/26/18 01:57 Dose: 1.25 mg Documented by: [id number] Timolol Maleate (Timoptic 0.25% Oph) 1 drops OPL QAM [facility] Stop: 09/25/18 08:59 Last Admin: 08/26/18 07:31 Dose: 1 drops Documented by: [id number] Discontinued Medications Dexamethasone Sodium Phosphate (Decadron Pf) 4 mg IV NOW ONE Stop: 08/25/18 20:33 Last Admin: 08/26/18 00:36 Dose: Not Given Documented by: [id number] Fentanyl Citrate (Fentanyl Citrate) 50 mcg IV NOW ONE Stop: 08/25/18 20:05 Last Admin: 08/25/18 20:25 Dose: 50 mcg Documented by: [id number] Fentanyl Citrate (Fentanyl Citrate) 50 mcg IV Q5M PRN PRN Reason: PACU Use Only-Pain Stop: 08/26/18 02:30 Last Admin: 08/26/18 00:16 Dose: 50 mcg Documented by: [id number] Hydromorphone HCl (Dilaudid) 2 mg IV Q3H PRN PRN Reason: SEVERE Pain (Scale 7,8,9,10) Stop: 09/09/18 00:17 Last Admin: 08/26/18 00:54 Dose: 2 mg Documented by: [id number] Sodium Chloride (Nss 1000ml) 1,000 mls @ 999 mls/hr IV .Q1H1M [facility] Stop: 08/25/18 18:30 Last Infusion: 08/25/18 19:28 Dose: 0 mls/hr Documented by: [id number] Admin: 08/25/18 18:02 Dose: 999 mls/hr Documented by: [id number] Sodium Chloride (Nss 1000ml) 1,000 mls @ 999 mls/hr IV .Q1H1M ONE Stop: 08/25/18 20:28 Last Infusion: 08/26/18 00:40 Dose: 0 mls/hr Documented by: [id number] Admin: 08/25/18 19:31 Dose: 999 mls/hr Documented by: [id number] Piperacillin Sod/Tazobactam Sod (Zosyn) 4.5 gm in 120 mls @ 240 mls/hr IV NOW ONE Stop: 08/25/18 20:07 Last Infusion: 08/26/18 00:41 Dose: 0 mls/hr Documented by: [id number] Admin: 08/25/18 20:17 Dose: 240 mls/hr Documented by: [id number] Pantoprazole Sodium 80 mg/ (Dextrose) 120 mls @ 480 mls/hr IV NOW ONE Stop: 08/25/18 20:14 Last Infusion: 08/26/18 00:41 Dose: 0 mls/hr Documented by: [id number] Admin: 08/25/18 20:21 Dose: 480 mls/hr Documented by: [id number] Pantoprazole Sodium 40 mg/ (Dextrose) 100 mls @ 20 mls/hr IV Q5H [facility] Stop: 08/26/18 01:14 Last Infusion: 08/26/18 00:41 Dose: 0 mls/hr Documented by: [id number] Admin: 08/25/18 20:41 Dose: 20 mls/hr Documented by: [id number] Sodium Chloride (Nss) 500 mls @ 125 mls/hr IV .Q4H [facility] Stop: 09/24/18 20:14 Last Admin: 08/26/18 00:42 Dose: Not Given Documented by: [id number] Admin: 08/26/18 00:40 Dose: Not Given Documented by: [id number] Albumin Human (Albumin 25%) 50 mls @ 50 mls/hr IV ONE ONE Stop: 08/26/18 01:48 Last Infusion: 08/26/18 02:42 Dose: 0 mls/hr Documented by: [id number] Admin: 08/26/18 01:11 Dose: 50 mls/hr Documented by: [id number] Albumin Human (Albumin 25%) 50 mls @ 50 mls/hr IV ONE ONE Stop: 08/26/18 02:44 Last Infusion: 08/26/18 03:07 Dose: 0 mls/hr Documented by: [id number] Admin: 08/26/18 02:04 Dose: 50 mls/hr Documented by: [id number] Dexamethasone Sodium Phosphate (4 mg/ Syringe) 1 mls @ 1 mls/min IV NOW STA Stop: 08/26/18 01:51 Last Admin: 08/26/18 03:06 Dose: 1 mls/min Documented by: [id number] Lactated Ringer's (Lr) 250 mls @ 250 mls/hr IV .Q1H ONE Stop: 08/26/18 03:37 Last Infusion: 08/26/18 03:42 Dose: 0 mls/hr Documented by: [id number] Admin: 08/26/18 02:40 Dose: 250 mls/hr Documented by: [id number] Magnesium Sulfate/Dextrose (Magnesium Sulfate / D5w) 1 gm in 100 mls @ 100 mls/hr IV Q1H [facility] Stop: 08/26/18 04:39 Last Infusion: 08/26/18 06:35 Dose: 0 mls/hr Documented by: [id number] Admin: 08/26/18 04:17 Dose: 100 mls/hr Documented by: [id number] Infusion: 08/26/18 04:14 Dose: 100 mls/hr Documented by: [id number] Admin: 08/26/18 03:14 Dose: 100 mls/hr Documented by: [id number] Calcium Gluconate 2,000 mg/ (Sodium Chloride) 70 mls @ 240 mls/hr IV NOW STA Stop: 08/26/18 03:42 Last Infusion: 08/26/18 04:18 Dose: 0 mls/hr Documented by: [id number] Admin: 08/26/18 03:51 Dose: 240 mls/hr Documented by: [id number] Albumin Human (Albumin 25%) 50 mls @ 50 mls/hr IV ONE ONE Stop: 08/26/18 05:40 Last Infusion: 08/26/18 06:34 Dose: 0 mls/hr Documented by: [id number] Admin: 08/26/18 05:30 Dose: 50 mls/hr Documented by: [id number] Albumin Human (Albumin 25%) 50 mls @ 50 mls/hr IV ONE ONE Stop: 08/26/18 06:33 Last Infusion: 08/26/18 07:47 Dose: 0 mls/hr Documented by: [id number] Admin: 08/26/18 06:34 Dose: 50 mls/hr Documented by: [id number] Ioversol (Optiray 320 100ml) 94 ml IV ONCE PRN PRN Reason: Interaction Checking Stop: 08/29/18 18:42 Last Admin: 08/25/18 18:44 Dose: 94 ml Documented by: [id number] Miscellaneous (Tisseel Fibrin Sealant 4ml) 4 ml TOP ONCE ONE Stop: 08/25/18 22:26 Last Admin: 08/25/18 22:59 Dose: 4 ml Documented by: [id number] Morphine Sulfate (Morphine Sulfate) 4 mg IV NOW STA Stop: 08/25/18 17:26 Last Admin: 08/25/18 18:01 Dose: 4 mg Documented by: [id number] Naloxone HCl (Narcan) Confirm Administered Dose 0.4 mg .ROUTE .STK-MED ONE Stop: 08/26/18 02:32 Last Admin: 08/26/18 02:42 Dose: Not Given Documented by: [id number] Naloxone HCl (Narcan) 0.4 mg IV NOW STA Stop: 08/26/18 02:32 Last Admin: 08/26/18 02:40 Dose: 0.4 mg Documented by: [id number] Ondansetron HCl (Zofran) Confirm Administered Dose 4 mg .ROUTE .STK-MED ONE Stop: 08/25/18 17:59 Last Admin: 08/25/18 18:02 Dose: 4 mg Documented by: [id number] Ondansetron HCl (Zofran) 4 mg IV NOW STA Stop: 08/25/18 18:16 Last Admin: 08/25/18 18:18 Dose: Not Given Documented by: [id number] Medical Decision Making Medical Records Attestation: I reviewed the patient's medical records. Home Medications Current Medication List: was personally reviewed by me Laboratory Data Attestation: I reviewed the patient's lab results. Result diagrams: 08/26/18 12:52 08/26/18 12:52 Lab Results 08/25/18 08/25/18 08/25/18 Range/Units 01:00 17:25 17:25 WBC 12.54 H (4.8-10.8) K/uL RBC 3.88 L (4.2-5.4) M/uL Hgb 11.4 L (12.0-16.0) g/dL Hct 35.0 L (37-47) % MCV 90.2 (80-100) fL MCH 29.4 (25-34) pg MCHC 32.6 (32-36) g/dL RDW Std Deviation 52.1 H (36.4-46.3) fL RDW Coeff of Lyssa 15.8 H (11.5-14.5) % Plt Count 360 (130-400) K/uL MPV 9.3 (7.4-10.4) fL Immature Gran % (Auto) 0.3 % Neut % (Auto) 90.4 % Lymph % (Auto) 3.6 % [place] % (Auto) 5.6 % Eos % (Auto) 0.0 % Baso % (Auto) 0.1 % Immature Gran # (Auto) 0.04 H (0.00-0.02) K/uL Neut # (Auto) 11.34 H (1.4-6.5) K/uL Lymph # (Auto) 0.45 L (1.2-3.4) K/uL [place] # (Auto) 0.70 H (0.11-0.59) K/uL Eos # (Auto) 0.00 (0-0.5) K/uL Baso # (Auto) 0.01 (0-0.2) K/uL Platelet Estimate (Normal) Echinocytes PT (9.0-12.0) Seconds INR (0.9-1.1) APTT (21.0-31.0) Seconds PTT Ratio Sample Site POC pH (7.35-7.45) POC pCO2 (35-46) mmHg POC pO2 (80-95) mmHg POC HCO3 (19-24) curtis/L POC Total CO2 (24-31) mEq/l POC Base Excess (-9-1.8) curtis/L POC ABG O2 Sat (90-95) % Gt Test O2 Delivery Device Sodium 134 L (136-145) mmol/L Potassium 4.0 (3.5-5.1) mmol/L Chloride 101 (98-107) mmol/L Carbon Dioxide 22 (21-32) mmol/L Anion Gap 12.0 H (3-11) BUN 19 H (7-18) mg/dl Creatinine 1.05 (0.6-1.2) mg/dl Est Cr Clr Drug Dosing Not Reportable Est GFR ( Amer) 62.8 Est GFR (Non-Af Amer) 54.1 BUN/Creatinine Ratio 17.9 (10-20) Glucose 125 H (70-99) mg/dl POC Glucose (70-99) Estimat Average Glucose mg/dl Hemoglobin A1c (4.5-5.6) % Lactate (0.4-2.0) mmol/L Calcium 9.1 (8.5-10.1) mg/dl Phosphorus (2.5-4.9) mg/dl Magnesium 2.0 (1.8-2.4) mg/dl Total Bilirubin 1.2 H (0.2-1) mg/dl AST 72 H (15-37) U/L ALT 64 (12-78) U/L Alkaline Phosphatase 101 (45-117) U/L Troponin I < 0.015 (0-0.045) ng/ml NT-Pro-B Natriuret Pep [id number] H (0-900) pg/ml Total Protein 7.8 (6.4-8.2) gm/dl Albumin 3.7 (3.4-5.0) gm/dl Globulin 4.1 H (2.5-4.0) gm/dl Albumin/Globulin Ratio 0.9 (0.9-2) Lipase 227 (73-393) U/L TSH 0.147 L (0.300-4.500) uIu/ml Urine Color Urine Appearance (Clear) Urine pH (4.5-7.5) Ur Specific [place] (1.000-1.030) Urine Protein (Negative) Urine Glucose (UA) (Negative) Urine Ketones (Negative) Urine Blood (Negative) Urine Nitrite (Negative) Urine Bilirubin (Negative) Urine Urobilinogen (Negative) Ur Leukocyte Esterase (Negative) Urine WBC (Auto) (0-5) /hpf Urine RBC (Auto) (0-4) /hpf U Hyaline Cast (Auto) (0-5) /lpf U Epithel Cells (Auto) (0-5) /lpf Urine Bacteria (Auto) (Negative) Nasal Screen MRSA (PCR) Negative (Negative) Blood Type Blood Type Recheck Antibody Screen Crossmatch 08/25/18 08/25/18 08/25/18 Range/Units 17:25 17:26 20:35 WBC (4.8-10.8) K/uL RBC (4.2-5.4) M/uL Hgb (12.0-16.0) g/dL Hct (37-47) % MCV (80-100) fL MCH (25-34) pg MCHC (32-36) g/dL RDW Std Deviation (36.4-46.3) fL RDW Coeff of Lyssa (11.5-14.5) % Plt Count (130-400) K/uL MPV (7.4-10.4) fL Immature Gran % (Auto) % Neut % (Auto) % Lymph % (Auto) % [place] % (Auto) % Eos % (Auto) % Baso % (Auto) % Immature Gran # (Auto) (0.00-0.02) K/uL Neut # (Auto) (1.4-6.5) K/uL Lymph # (Auto) (1.2-3.4) K/uL [place] # (Auto) (0.11-0.59) K/uL Eos # (Auto) (0-0.5) K/uL Baso # (Auto) (0-0.2) K/uL Platelet Estimate (Normal) Echinocytes PT (9.0-12.0) Seconds INR (0.9-1.1) APTT (21.0-31.0) Seconds PTT Ratio Sample Site POC pH (7.35-7.45) POC pCO2 (35-46) mmHg POC pO2 (80-95) mmHg POC HCO3 (19-24) curtis/L POC Total CO2 (24-31) mEq/l POC Base Excess (-9-1.8) curtis/L POC ABG O2 Sat (90-95) % Gt Test O2 Delivery Device Sodium (136-145) mmol/L Potassium (3.5-5.1) mmol/L Chloride (98-107) mmol/L Carbon Dioxide (21-32) mmol/L Anion Gap (3-11) BUN (7-18) mg/dl Creatinine (0.6-1.2) mg/dl Est Cr Clr Drug Dosing Est GFR ( Amer) Est GFR (Non-Af Amer) BUN/Creatinine Ratio (10-20) Glucose (70-99) mg/dl POC Glucose (70-99) Estimat Average Glucose 123 mg/dl Hemoglobin A1c 5.9 H (4.5-5.6) % Lactate (0.4-2.0) mmol/L Calcium (8.5-10.1) mg/dl Phosphorus (2.5-4.9) mg/dl Magnesium (1.8-2.4) mg/dl Total Bilirubin (0.2-1) mg/dl AST (15-37) U/L ALT (12-78) U/L Alkaline Phosphatase (45-117) U/L Troponin I (0-0.045) ng/ml NT-Pro-B Natriuret Pep (0-900) pg/ml Total Protein (6.4-8.2) gm/dl Albumin (3.4-5.0) gm/dl Globulin (2.5-4.0) gm/dl Albumin/Globulin Ratio (0.9-2) Lipase (73-393) U/L TSH (0.300-4.500) uIu/ml Urine Color Yellow Urine Appearance Clear (Clear) Urine pH 5.5 (4.5-7.5) Ur Specific [place] 1.020 (1.000-1.030) Urine Protein 2+ H (Negative) Urine Glucose (UA) Negative (Negative) Urine Ketones Trace H (Negative) Urine Blood Negative (Negative) Urine Nitrite Negative (Negative) Urine Bilirubin Negative (Negative) Urine Urobilinogen Negative (Negative) Ur Leukocyte Esterase Negative (Negative) Urine WBC (Auto) 1-5 (0-5) /hpf Urine RBC (Auto) 0-4 (0-4) /hpf U Hyaline Cast (Auto) 0 (0-5) /lpf U Epithel Cells (Auto) 10-20 H (0-5) /lpf Urine Bacteria (Auto) Negative (Negative) Nasal Screen MRSA (PCR) (Negative) Blood Type A Negative Blood Type Recheck Antibody Screen NEGATIVE Crossmatch See Detail 08/25/18 08/25/18 08/26/18 Range/Units 20:35 20:53 00:30 WBC (4.8-10.8) K/uL RBC (4.2-5.4) M/uL Hgb (12.0-16.0) g/dL Hct (37-47) % MCV (80-100) fL MCH (25-34) pg MCHC (32-36) g/dL RDW Std Deviation (36.4-46.3) fL RDW Coeff of Lyssa (11.5-14.5) % Plt Count (130-400) K/uL MPV (7.4-10.4) fL Immature Gran % (Auto) % Neut % (Auto) % Lymph % (Auto) % [place] % (Auto) % Eos % (Auto) % Baso % (Auto) % Immature Gran # (Auto) (0.00-0.02) K/uL Neut # (Auto) (1.4-6.5) K/uL Lymph # (Auto) (1.2-3.4) K/uL [place] # (Auto) (0.11-0.59) K/uL Eos # (Auto) (0-0.5) K/uL Baso # (Auto) (0-0.2) K/uL Platelet Estimate (Normal) Echinocytes PT 12.6 H (9.0-12.0) Seconds INR 1.2 H (0.9-1.1) APTT 26.2 (21.0-31.0) Seconds PTT Ratio 1.0 Sample Site POC pH (7.35-7.45) POC pCO2 (35-46) mmHg POC pO2 (80-95) mmHg POC HCO3 (19-24) curtis/L POC Total CO2 (24-31) mEq/l POC Base Excess (-9-1.8) curtis/L POC ABG O2 Sat (90-95) % Gt Test O2 Delivery Device Sodium (136-145) mmol/L Potassium (3.5-5.1) mmol/L Chloride (98-107) mmol/L Carbon Dioxide (21-32) mmol/L Anion Gap (3-11) BUN (7-18) mg/dl Creatinine (0.6-1.2) mg/dl Est Cr Clr Drug Dosing Est GFR ( Amer) Est GFR (Non-Af Amer) BUN/Creatinine Ratio (10-20) Glucose (70-99) mg/dl POC Glucose 122 H (70-99) Estimat Average Glucose mg/dl Hemoglobin A1c (4.5-5.6) % Lactate 2.1 H* (0.4-2.0) mmol/L Calcium (8.5-10.1) mg/dl Phosphorus (2.5-4.9) mg/dl Magnesium (1.8-2.4) mg/dl Total Bilirubin (0.2-1) mg/dl AST (15-37) U/L ALT (12-78) U/L Alkaline Phosphatase (45-117) U/L Troponin I (0-0.045) ng/ml NT-Pro-B Natriuret Pep (0-900) pg/ml Total Protein (6.4-8.2) gm/dl Albumin (3.4-5.0) gm/dl Globulin (2.5-4.0) gm/dl Albumin/Globulin Ratio (0.9-2) Lipase (73-393) U/L TSH (0.300-4.500) uIu/ml Urine Color Urine Appearance (Clear) Urine pH (4.5-7.5) Ur Specific [place] (1.000-1.030) Urine Protein (Negative) Urine Glucose (UA) (Negative) Urine Ketones (Negative) Urine Blood (Negative) Urine Nitrite (Negative) Urine Bilirubin (Negative) Urine Urobilinogen (Negative) Ur Leukocyte Esterase (Negative) Urine WBC (Auto) (0-5) /hpf Urine RBC (Auto) (0-4) /hpf U Hyaline Cast (Auto) (0-5) /lpf U Epithel Cells (Auto) (0-5) /lpf Urine Bacteria (Auto) (Negative) Nasal Screen MRSA (PCR) (Negative) Blood Type Blood Type Recheck Antibody Screen Crossmatch 08/26/18 08/26/18 08/26/18 Range/Units 01:53 01:53 01:53 WBC 14.07 H (4.8-10.8) K/uL RBC 2.84 L (4.2-5.4) M/uL Hgb 8.5 L (12.0-16.0) g/dL Hct 26.4 L (37-47) % MCV 93.0 (80-100) fL MCH 29.9 (25-34) pg MCHC 32.2 (32-36) g/dL RDW Std Deviation 54.1 H (36.4-46.3) fL RDW Coeff of Lyssa 15.9 H (11.5-14.5) % Plt Count 321 (130-400) K/uL MPV 9.0 (7.4-10.4) fL Immature Gran % (Auto) 0.2 % Neut % (Auto) 92.3 % Lymph % (Auto) 2.3 % [place] % (Auto) 5.1 % Eos % (Auto) 0.0 % Baso % (Auto) 0.1 % Immature Gran # (Auto) 0.03 H (0.00-0.02) K/uL Neut # (Auto) 12.99 H (1.4-6.5) K/uL Lymph # (Auto) 0.32 L (1.2-3.4) K/uL [place] # (Auto) 0.72 H (0.11-0.59) K/uL Eos # (Auto) 0.00 (0-0.5) K/uL Baso # (Auto) 0.01 (0-0.2) K/uL Platelet Estimate (Normal) Echinocytes PT (9.0-12.0) Seconds INR (0.9-1.1) APTT (21.0-31.0) Seconds PTT Ratio Sample Site POC pH (7.35-7.45) POC pCO2 (35-46) mmHg POC pO2 (80-95) mmHg POC HCO3 (19-24) curtis/L POC Total CO2 (24-31) mEq/l POC Base Excess (-9-1.8) curtis/L POC ABG O2 Sat (90-95) % Gt Test O2 Delivery Device Sodium 136 (136-145) mmol/L Potassium 4.1 (3.5-5.1) mmol/L Chloride 106 (98-107) mmol/L Carbon Dioxide 25 (21-32) mmol/L Anion Gap 5.0 (3-11) BUN 16 (7-18) mg/dl Creatinine 1.01 (0.6-1.2) mg/dl Est Cr Clr Drug Dosing 43.5 Est GFR ( Amer) 65.8 Est GFR (Non-Af Amer) 56.8 BUN/Creatinine Ratio 16.2 (10-20) Glucose 160 H (70-99) mg/dl POC Glucose (70-99) Estimat Average Glucose mg/dl Hemoglobin A1c (4.5-5.6) % Lactate 2.6 H* (0.4-2.0) mmol/L Calcium 7.2 L D (8.5-10.1) mg/dl Phosphorus (2.5-4.9) mg/dl Magnesium 1.6 L (1.8-2.4) mg/dl Total Bilirubin (0.2-1) mg/dl AST (15-37) U/L ALT (12-78) U/L Alkaline Phosphatase (45-117) U/L Troponin I (0-0.045) ng/ml NT-Pro-B Natriuret Pep (0-900) pg/ml Total Protein (6.4-8.2) gm/dl Albumin 3.1 L (3.4-5.0) gm/dl Globulin (2.5-4.0) gm/dl Albumin/Globulin Ratio (0.9-2) Lipase (73-393) U/L TSH 0.681 (0.300-4.500) uIu/ml Urine Color Urine Appearance (Clear) Urine pH (4.5-7.5) Ur Specific [place] (1.000-1.030) Urine Protein (Negative) Urine Glucose (UA) (Negative) Urine Ketones (Negative) Urine Blood (Negative) Urine Nitrite (Negative) Urine Bilirubin (Negative) Urine Urobilinogen (Negative) Ur Leukocyte Esterase (Negative) Urine WBC (Auto) (0-5) /hpf Urine RBC (Auto) (0-4) /hpf U Hyaline Cast (Auto) (0-5) /lpf U Epithel Cells (Auto) (0-5) /lpf Urine Bacteria (Auto) (Negative) Nasal Screen MRSA (PCR) (Negative) Blood Type Blood Type Recheck Antibody Screen Crossmatch 08/26/18 08/26/18 08/26/18 Range/Units 02:07 03:11 06:12 WBC (4.8-10.8) K/uL RBC (4.2-5.4) M/uL Hgb 6.2 L* (12.0-16.0) g/dL Hct 19.0 L* (37-47) % MCV (80-100) fL MCH (25-34) pg MCHC (32-36) g/dL RDW Std Deviation (36.4-46.3) fL RDW Coeff of Lyssa (11.5-14.5) % Plt Count (130-400) K/uL MPV (7.4-10.4) fL Immature Gran % (Auto) % Neut % (Auto) % Lymph % (Auto) % [place] % (Auto) % Eos % (Auto) % Baso % (Auto) % Immature Gran # (Auto) (0.00-0.02) K/uL Neut # (Auto) (1.4-6.5) K/uL Lymph # (Auto) (1.2-3.4) K/uL [place] # (Auto) (0.11-0.59) K/uL Eos # (Auto) (0-0.5) K/uL Baso # (Auto) (0-0.2) K/uL Platelet Estimate (Normal) Echinocytes PT (9.0-12.0) Seconds INR (0.9-1.1) APTT (21.0-31.0) Seconds PTT Ratio Sample Site L Radial L Radial POC pH 7.18 L* 7.30 L (7.35-7.45) POC pCO2 53 H 41 (35-46) mmHg POC pO2 87 89 (80-95) mmHg POC HCO3 20 20 (19-24) curtis/L POC Total CO2 22 L 21 L (24-31) mEq/l POC Base Excess -9.0 -6.0 (-9-1.8) curtis/L POC ABG O2 Sat 94.0 96.0 H (90-95) % Gt Test Pass Pass O2 Delivery Device Other Other Sodium (136-145) mmol/L Potassium (3.5-5.1) mmol/L Chloride (98-107) mmol/L Carbon Dioxide (21-32) mmol/L Anion Gap (3-11) BUN (7-18) mg/dl Creatinine (0.6-1.2) mg/dl Est Cr Clr Drug Dosing Est GFR ( Amer) Est GFR (Non-Af Amer) BUN/Creatinine Ratio (10-20) Glucose (70-99) mg/dl POC Glucose (70-99) Estimat Average Glucose mg/dl Hemoglobin A1c (4.5-5.6) % Lactate (0.4-2.0) mmol/L Calcium (8.5-10.1) mg/dl Phosphorus (2.5-4.9) mg/dl Magnesium (1.8-2.4) mg/dl Total Bilirubin (0.2-1) mg/dl AST (15-37) U/L ALT (12-78) U/L Alkaline Phosphatase (45-117) U/L Troponin I (0-0.045) ng/ml NT-Pro-B Natriuret Pep (0-900) pg/ml Total Protein (6.4-8.2) gm/dl Albumin (3.4-5.0) gm/dl Globulin (2.5-4.0) gm/dl Albumin/Globulin Ratio (0.9-2) Lipase (73-393) U/L TSH (0.300-4.500) uIu/ml Urine Color Urine Appearance (Clear) Urine pH (4.5-7.5) Ur Specific [place] (1.000-1.030) Urine Protein (Negative) Urine Glucose (UA) (Negative) Urine Ketones (Negative) Urine Blood (Negative) Urine Nitrite (Negative) Urine Bilirubin (Negative) Urine Urobilinogen (Negative) Ur Leukocyte Esterase (Negative) Urine WBC (Auto) (0-5) /hpf Urine RBC (Auto) (0-4) /hpf U Hyaline Cast (Auto) (0-5) /lpf U Epithel Cells (Auto) (0-5) /lpf Urine Bacteria (Auto) (Negative) Nasal Screen MRSA (PCR) (Negative) Blood Type Blood Type Recheck Antibody Screen Crossmatch 08/26/18 08/26/18 08/26/18 Range/Units 06:12 06:12 06:31 WBC (4.8-10.8) K/uL RBC (4.2-5.4) M/uL Hgb (12.0-16.0) g/dL Hct (37-47) % MCV (80-100) fL MCH (25-34) pg MCHC (32-36) g/dL RDW Std Deviation (36.4-46.3) fL RDW Coeff of Lyssa (11.5-14.5) % Plt Count (130-400) K/uL MPV (7.4-10.4) fL Immature Gran % (Auto) % Neut % (Auto) % Lymph % (Auto) % [place] % (Auto) % Eos % (Auto) % Baso % (Auto) % Immature Gran # (Auto) (0.00-0.02) K/uL Neut # (Auto) (1.4-6.5) K/uL Lymph # (Auto) (1.2-3.4) K/uL [place] # (Auto) (0.11-0.59) K/uL Eos # (Auto) (0-0.5) K/uL Baso # (Auto) (0-0.2) K/uL Platelet Estimate (Normal) Echinocytes PT (9.0-12.0) Seconds INR (0.9-1.1) APTT (21.0-31.0) Seconds PTT Ratio Sample Site POC pH (7.35-7.45) POC pCO2 (35-46) mmHg POC pO2 (80-95) mmHg POC HCO3 (19-24) curtis/L POC Total CO2 (24-31) mEq/l POC Base Excess (-9-1.8) curtis/L POC ABG O2 Sat (90-95) % Gt Test O2 Delivery Device Sodium (136-145) mmol/L Potassium (3.5-5.1) mmol/L Chloride (98-107) mmol/L Carbon Dioxide (21-32) mmol/L Anion Gap (3-11) BUN (7-18) mg/dl Creatinine (0.6-1.2) mg/dl Est Cr Clr Drug Dosing Est GFR ( Amer) Est GFR (Non-Af Amer) BUN/Creatinine Ratio (10-20) Glucose (70-99) mg/dl POC Glucose 244 H (70-99) Estimat Average Glucose mg/dl Hemoglobin A1c (4.5-5.6) % Lactate 2.6 H* (0.4-2.0) mmol/L Calcium (8.5-10.1) mg/dl Phosphorus (2.5-4.9) mg/dl Magnesium (1.8-2.4) mg/dl Total Bilirubin (0.2-1) mg/dl AST (15-37) U/L ALT (12-78) U/L Alkaline Phosphatase (45-117) U/L Troponin I (0-0.045) ng/ml NT-Pro-B Natriuret Pep (0-900) pg/ml Total Protein (6.4-8.2) gm/dl Albumin (3.4-5.0) gm/dl Globulin (2.5-4.0) gm/dl Albumin/Globulin Ratio (0.9-2) Lipase (73-393) U/L TSH (0.300-4.500) uIu/ml Urine Color Urine Appearance (Clear) Urine pH (4.5-7.5) Ur Specific [place] (1.000-1.030) Urine Protein (Negative) Urine Glucose (UA) (Negative) Urine Ketones (Negative) Urine Blood (Negative) Urine Nitrite (Negative) Urine Bilirubin (Negative) Urine Urobilinogen (Negative) Ur Leukocyte Esterase (Negative) Urine WBC (Auto) (0-5) /hpf Urine RBC (Auto) (0-4) /hpf U Hyaline Cast (Auto) (0-5) /lpf U Epithel Cells (Auto) (0-5) /lpf Urine Bacteria (Auto) (Negative) Nasal Screen MRSA (PCR) (Negative) Blood Type Blood Type Recheck A Negative Antibody Screen Crossmatch 08/26/18 08/26/18 08/26/18 Range/Units 12:14 12:52 12:52 WBC (4.8-10.8) K/uL RBC (4.2-5.4) M/uL Hgb (12.0-16.0) g/dL Hct (37-47) % MCV (80-100) fL MCH (25-34) pg MCHC (32-36) g/dL RDW Std Deviation (36.4-46.3) fL RDW Coeff of Lyssa (11.5-14.5) % Plt Count (130-400) K/uL MPV (7.4-10.4) fL Immature Gran % (Auto) % Neut % (Auto) % Lymph % (Auto) % [place] % (Auto) % Eos % (Auto) % Baso % (Auto) % Immature Gran # (Auto) (0.00-0.02) K/uL Neut # (Auto) (1.4-6.5) K/uL Lymph # (Auto) (1.2-3.4) K/uL [place] # (Auto) (0.11-0.59) K/uL Eos # (Auto) (0-0.5) K/uL Baso # (Auto) (0-0.2) K/uL Platelet Estimate (Normal) Echinocytes PT (9.0-12.0) Seconds INR (0.9-1.1) APTT (21.0-31.0) Seconds PTT Ratio Sample Site POC pH (7.35-7.45) POC pCO2 (35-46) mmHg POC pO2 (80-95) mmHg POC HCO3 (19-24) curtis/L POC Total CO2 (24-31) mEq/l POC Base Excess (-9-1.8) curtis/L POC ABG O2 Sat (90-95) % Gt Test O2 Delivery Device Sodium 131 L (136-145) mmol/L Potassium 4.5 (3.5-5.1) mmol/L Chloride 103 (98-107) mmol/L Carbon Dioxide 23 (21-32) mmol/L Anion Gap 5.0 (3-11) BUN 17 (7-18) mg/dl Creatinine 1.33 H D (0.6-1.2) mg/dl Est Cr Clr Drug Dosing 37.5 Est GFR ( Amer) 47.2 Est GFR (Non-Af Amer) 40.7 BUN/Creatinine Ratio 13.1 (10-20) Glucose 159 H (70-99) mg/dl POC Glucose 183 H (70-99) Estimat Average Glucose mg/dl Hemoglobin A1c (4.5-5.6) % Lactate 2.4 H* (0.4-2.0) mmol/L Calcium 7.6 L (8.5-10.1) mg/dl Phosphorus 3.9 (2.5-4.9) mg/dl Magnesium 2.1 (1.8-2.4) mg/dl Total Bilirubin (0.2-1) mg/dl AST (15-37) U/L ALT (12-78) U/L Alkaline Phosphatase (45-117) U/L Troponin I (0-0.045) ng/ml NT-Pro-B Natriuret Pep (0-900) pg/ml Total Protein (6.4-8.2) gm/dl Albumin (3.4-5.0) gm/dl Globulin (2.5-4.0) gm/dl Albumin/Globulin Ratio (0.9-2) Lipase (73-393) U/L TSH (0.300-4.500) uIu/ml Urine Color Urine Appearance (Clear) Urine pH (4.5-7.5) Ur Specific [place] (1.000-1.030) Urine Protein (Negative) Urine Glucose (UA) (Negative) Urine Ketones (Negative) Urine Blood (Negative) Urine Nitrite (Negative) Urine Bilirubin (Negative) Urine Urobilinogen (Negative) Ur Leukocyte Esterase (Negative) Urine WBC (Auto) (0-5) /hpf Urine RBC (Auto) (0-4) /hpf U Hyaline Cast (Auto) (0-5) /lpf U Epithel Cells (Auto) (0-5) /lpf Urine Bacteria (Auto) (Negative) Nasal Screen MRSA (PCR) (Negative) Blood Type Blood Type Recheck Antibody Screen Crossmatch 08/26/18 Range/Units 12:52 WBC 7.85 (4.8-10.8) K/uL RBC 2.76 L (4.2-5.4) M/uL Hgb 8.3 L (12.0-16.0) g/dL Hct 24.4 L (37-47) % MCV 88.4 (80-100) fL MCH 30.1 (25-34) pg MCHC 34.0 (32-36) g/dL RDW Std Deviation 48.0 H (36.4-46.3) fL RDW Coeff of Lyssa 14.9 H (11.5-14.5) % Plt Count 158 D (130-400) K/uL MPV 8.4 (7.4-10.4) fL Immature Gran % (Auto) 0.3 % Neut % (Auto) 84.7 % Lymph % (Auto) 6.0 % [place] % (Auto) 9.0 % Eos % (Auto) 0.0 % Baso % (Auto) 0.0 % Immature Gran # (Auto) 0.02 (0.00-0.02) K/uL Neut # (Auto) 6.65 H (1.4-6.5) K/uL Lymph # (Auto) 0.47 L (1.2-3.4) K/uL [place] # (Auto) 0.71 H (0.11-0.59) K/uL Eos # (Auto) 0.00 (0-0.5) K/uL Baso # (Auto) 0.00 (0-0.2) K/uL Platelet Estimate Normal (Normal) Echinocytes 1+ PT (9.0-12.0) Seconds INR (0.9-1.1) APTT (21.0-31.0) Seconds PTT Ratio Sample Site POC pH (7.35-7.45) POC pCO2 (35-46) mmHg POC pO2 (80-95) mmHg POC HCO3 (19-24) curtis/L POC Total CO2 (24-31) mEq/l POC Base Excess (-9-1.8) curtis/L POC ABG O2 Sat (90-95) % Gt Test O2 Delivery Device Sodium (136-145) mmol/L Potassium (3.5-5.1) mmol/L Chloride (98-107) mmol/L Carbon Dioxide (21-32) mmol/L Anion Gap (3-11) BUN (7-18) mg/dl Creatinine (0.6-1.2) mg/dl Est Cr Clr Drug Dosing Est GFR ( Amer) Est GFR (Non-Af Amer) BUN/Creatinine Ratio (10-20) Glucose (70-99) mg/dl POC Glucose (70-99) Estimat Average Glucose mg/dl Hemoglobin A1c (4.5-5.6) % Lactate (0.4-2.0) mmol/L Calcium (8.5-10.1) mg/dl Phosphorus (2.5-4.9) mg/dl Magnesium (1.8-2.4) mg/dl Total Bilirubin (0.2-1) mg/dl AST (15-37) U/L ALT (12-78) U/L Alkaline Phosphatase (45-117) U/L Troponin I (0-0.045) ng/ml NT-Pro-B Natriuret Pep (0-900) pg/ml Total Protein (6.4-8.2) gm/dl Albumin (3.4-5.0) gm/dl Globulin (2.5-4.0) gm/dl Albumin/Globulin Ratio (0.9-2) Lipase (73-393) U/L TSH (0.300-4.500) uIu/ml Urine Color Urine Appearance (Clear) Urine pH (4.5-7.5) Ur Specific [place] (1.000-1.030) Urine Protein (Negative) Urine Glucose (UA) (Negative) Urine Ketones (Negative) Urine Blood (Negative) Urine Nitrite (Negative) Urine Bilirubin (Negative) Urine Urobilinogen (Negative) Ur Leukocyte Esterase (Negative) Urine WBC (Auto) (0-5) /hpf Urine RBC (Auto) (0-4) /hpf U Hyaline Cast (Auto) (0-5) /lpf U Epithel Cells (Auto) (0-5) /lpf Urine Bacteria (Auto) (Negative) Nasal Screen MRSA (PCR) (Negative) Blood Type Blood Type Recheck Antibody Screen Crossmatch Imaging Data Radiologist's Impression: XR chest 1V portable HISTORY: 68 years-old Female sob acute shortness of breath COMPARISON: CT abdomen and pelvis of same day, chest radiograph 08/21/2018 TECHNIQUE: Portable AP view the chest FINDINGS: Cardiac silhouette is enlarged, unchanged. Calcification of the thoracic aortic arch. Chronic interstitial coarsening without pneumothorax, pleural effusion or overt pulmonary edema. Severe emphysema. Large volume pneumoperitoneum. Degenerative changes of the shoulders and spine. IMPRESSION: 1. Large volume pneumoperitoneum. Please refer to CT abdomen and pelvis of same day for further details. 2. Cardiomegaly without overt pulmonary edema. 3. Emphysema with chronic interstitial coarsening. The above report was generated using voice recognition software. It may contain grammatical, syntax or spelling errors. Electronically signed by: Chiki Brown M.D. 08/25/2018 7:48 PM ABDOMEN AND PELVIS CT WITH IV CONTRAST CT DOSE: 322.60 mGy.cm HISTORY: Acute generalized abdominal pain diffuse ab pain TECHNIQUE: Multiaxial CT images of the abdomen and pelvis were performed following the use of intravenous contrast. A dose lowering technique was utilized adhering to the principles of ALARA. COMPARISON STUDY: CT abdomen and pelvis 08/21/2017. FINDINGS: Subsegmental bibasilar atelectasis/scarring with moderate emphysema. Trace pleural effusions. Chronic moderate left hemidiaphragmatic elevation. Imaged inferior cardiac chambers are moderately enlarged with coronary arterial calcifications noted. Moderate gallbladder distention with mild gallbladder wall thickening. Suggested cyst of the right hepatic lobe, 2.0 cm. Intrahepatic and extrahepatic biliary ductal dilation is noted with the common bile duct measuring up to approximately 8 mm. No obstructing biliary stone or lesion identified. Hepatic steatosis with heterogeneous appearance of the hepatic parenchyma. Mild periportal edema. Mild amount of free fluid about the delon hepatis. Spleen, pancreas and adrenal glands are unremarkable. Marked atrophy with markedly decreased enhancement of the right kidney. Severe renal arterial stenosis on the right. There is a least mild left-sided renal arterial stenosis with multifocal cortical scarring about the left kidney. 10 mm left renal cyst about the interpolar distribution. Nonspecific bilateral perinephric stranding. No renal or ureteral calculi. Urinary bladder is unremarkable. Prior hysterectomy. No adnexal mass lesions. Pelvic structures are suboptimally visualized secondary to streak artifact from left hip total joint arthroplasty. Extensive calcification of the abdominal aorta without aneurysm. There is no adenopathy identified. Large volume pneumoperitoneum centered about the anterior central and upper abdomen. Mild gaseous distention of the duodenum. Wall thickening with moderate surrounding stranding and ascites is noted about the gastric fundus and body. Pneumoperitoneum intermixed with ascites is noted measuring up to 6.8 x 3.8 cm and the left subdiaphragmatic distribution, image 65 series 3. There is a focal defect noted through the lesser curvature wall of the distal gastric body (image 258 series 3). The duodenum appears unremarkable. There is mild rectal wall thickening. Colonic diverticulosis without acute diverticulitis. Trace ascites also noted about the pelvis. Mild generalized body wall edema. Left hip total joint arthroplasty. There is suggestion of minimal AVN about the right femoral head. Demineralized appearance the bones. Mild convex right curvature of the lumbar spine. Severe multilevel facet arthrosis with spondylitic spurring. IMPRESSION: 1. Acute perforated gastric ulcer about the lesser curvature of the distal gastric body with large volume of upper abdominal pneumoperitoneum. Ascites intermixed with free air is noted about the left subdiaphragmatic distribution. There is no well loculated abscess identified at this time. Surgical consultation is needed. 2. No bowel obstruction. 3. Colonic diverticulosis without acute diverticulitis. 4. Markedly atrophic right kidney with severe right-sided renal arterial stenosis. 5. Trace pleural effusions. 6. Additional findings as above. Electronically signed by: Chiki Brown M.D. 08/25/2018 7:22 PM ECG Data Attestation: I personally reviewed and interpreted this ECG as follows: Indication: abdominal pain Rate (beats per minute): 109 Rhythm: sinus tachycardia Findings: + other (Normal intervals, and axis) and + PVC; no ST depression, no ST elevation and no acute ischemic change Blood Pressure Blood Pressure Findings: Normal blood pressure MDM Narrative The patient is a 68 year old white female with a past medical history of hypertension, anemia, COPD, atrial ectopic tachycardia, CVA, and bigeminy who presents to the Emergency Room with complaints of abdominal pain for the past month. Differential diagnosis: Etiologies such as biliary colic, cholecystitis, hepatitis, perihepatitis, pancreatitis, cardiac disease, pancreatitis, gastritis, peptic ulcer disease, appendicitis, ovarian cyst, ovarian torsion, ectopic , pelvic inflammatory disease, cystitis, diverticulitis, mesenteric ischemia, inflammatory bowel disease, ileus, bowel obstruction, aortic pathology, reactive airway disease, COPD, pneumonia, pleural effusion, pulmonary edema, ARDS, pneumothorax, CHF, cardiac ischemia, cardiac tamponade, dysrhythmia, anemia, pulmonary embolism, musculoskeletal, gastrointestinal process, as well as others were entertained. Patient was seen and evaluated bedside. Patient has complained of some abdominal discomfort and associated shortness of breath. Patient does state that she has had abdominal pain over the last month but acutely worse in the last 2 to 3 days. The patient was seen twice in the ER with an relatively negative imaging studies. The patient did have a questionable gallbladder issue on CT but had a negative gallbladder ultrasound following this during the same visit. The patient had been seen by her primary care physician on Sunday was started on albuterol and did have follow-up for pulmonary function testing CT of the chest as well as a cardiology follow-up this coming Sunday. Patient does have mild diffuse discomfort on exam. The patient does not localize anywhere in particular. Patient therefore completed on with a chest x-ray EKG CT the abdomen pelvis. CT of the abdomen pelvis which showed a gastric ulcer perforation. General surgery consult was immediately initiated. Patient was started on Zosyn a PPI bolus and drip made n.p.o. and started on maintenance IV fluids. The patient has required a little bit of supplemental oxygen and patient did initially prese nt with an O2 sat of 99%. Patient's EKG does appear to show sinus tachycardia. The patient did have a mild change in her white count from 5-12. Patient does have mild anemia which is stable. Patient does have some chronic elevations in her T bili and AST but is not much change from before. Troponin is nondetectable. I did speak with the on-call surgeon who recommended a admission to the medical team but that he would take the patient to the OR for operative treatment. Patient again was made n.p.o. type and screen was also obtained along with coagulation studies. I did speak the hospitalist who agreed to further evaluate and treat the patient for admission pending OR. Patient's chest x-ray that showed the pneumoperitoneum. Patient does have cardiomegaly but no obvious pulmonary edema. No obvious pneumonia. Patient was already covered with antibiotics. The patient's hypoxia may be related to her splinting secondary to her abdominal pain if she is not taking big deep breaths. I did discuss this with the hospitalist. Believe PE to be less likely as the patient was normal cardiac and not hypoxic upon initial presentation. Impression & Plan Acute gastric ulcer with perforation, Hypoxia, Abdominal pain Critical Care Time I have personally spent greater than 80 minutes of critical care time in direct management of this patient. This includes bedside care, interpretation of diagnostic studies, and testing, discussion with consultants, patient, and family members, and other require inpatient management activities. This 80 minutes is in excess of all separately billable procedures. Critical Care Time: Yes Total Critical Care Time: 80 Discharge Plan Visit Data *Final* Discharge Date/Time: 08/25/18 21:11 Chief Complaint: Shortness of Breath/Dyspnea Stated Complaint: PAIN IN ABDOMEN ED Provider: Gregory Amador Discharge Problem: Acute gastric ulcer with perforation, Hypoxia, Abdominal pain Patient Disposition: Admitted As Inpatient Discharge Instructions Interventions: ED Discharge Assessment Last Done: 08/25/18 20:56 Discharge Problem: Abdominal pain Qualifiers: Abdominal location: generalized Qualified Code(s): R10.84 - Generalized abdominal pain The scribe's documentation has been prepared under my direction and personally reviewed by me in its entirety. I confirm that the note above accurately reflects all work, treatment, procedures, and medical decision making performed by me.
--- NOTE | 2018-08-25 20:53 | Surgery Consultation ---
Date of Consultation August 25, 2018 Assessment & Plan (1) Acute gastric ulcer with perforation: pt with acute abdomen/gastric perforation urgent OR. laparoscopy/poss open for repair discussed risks ( bleeding/infection/dvt/pe/mi/cva/injury to an organ etc...) will need stress dose steroids questions answered. pt/ agreeable to plan. OR elizabeth. History of Present Illness History of Present Illness pt has been not feeling well for several weeks. today after rastafari had excruciating epigastric pain. CT reveals perforated gastric ulcer. Allergies Allergy/AdvReac Type Severity Reaction Status Date / Time hydrocodone Allergy Intermediate CONFUSION Verified 08/25/18 18:06 ramipril Allergy Intermediate Nausea Verified 08/25/18 18:06 Sulfa (Sulfonamide Allergy Intermediate Nausea Verified 08/25/18 18:06 Antibiotics) Home Medications Home Medications Medication Instructions Recorded Confirmed Type atorvastatin 80 mg PO HS 02/22/18 08/25/18 History multivitamin 1 tab PO QAM 02/22/18 08/25/18 History omega 8-acf-exj-fish oil [Fish Oil] 1,000 mg PO QAM 02/22/18 08/25/18 History albuterol sulfate 2 puffs INH Q4H PRN #6.7 gm 08/21/18 08/25/18 Rx timolol maleate 1 drp [facility] QA 08/21/18 08/25/18 History aspirin 325 mg PO QAM 08/25/18 08/25/18 History doxycycline hyclate 100 mg PO BID 08/25/18 08/25/18 History naproxen sodium [Aleve] 220 mg PO Q12H PRN 08/25/18 08/25/18 History prednisone 40 mg PO QAM 08/25/18 08/25/18 History Patient History Medical History Atrial ectopic tachycardia Hyperlipidemia CVA (cerebral vascular accident) HTN (hypertension) Hip fracture (Acute) Acute dyspnea (Inactive) Anemia (Inactive) Bigeminy (Inactive) GERD (gastroesophageal reflux disease) Hyperlipidemia Hypertension no meds currently Stroke Surgical History History of carotid endarterectomy History of cataract extraction History of hand surgery History of tonsillectomy Family History Other Family history non-contributory Social History Preferred Language: Scottish Communication Ability: Effective Visual Impairment: No Limitations Beliefs That Will Affect Care: None marital status: Current Living Situation: Spouse Feels Safe at Home: Yes Smoking Status: Never smoker Hx Alcohol Use: Yes Alcohol type: wine Hx Substance Use: No Review of Systems Review of Systems: SOB abdominal pain arthritis Physical Exam Physical Exam: alert/oriented. mild discomfort after pain meds Heent: Pearla. eomi Heart: sinus tachy 110 Lungs: decreased bs's b/l bases. abd: soft. mild distension. diffuse ttp > in upper abdomen. +peritoneal signs ext: no c/c/e Results & Data Vital Signs (Past 12 Hours) Vital Signs Temp Pulse Resp BP Pulse Ox 08/25/18 19:31 108 H 23 120/80 96 08/25/18 19:30 106 H 23 91 08/25/18 19:20 108 H 24 08/25/18 19:19 95 08/25/18 19:18 82 L 08/25/18 19:10 111 H 24 08/25/18 19:09 111 H 23 86/65 L 08/25/18 19:05 106 H 21 08/25/18 19:04 109 H 22 82/51 L 08/25/18 19:02 110 H 22 08/25/18 19:00 113 H 20 08/25/18 18:53 114 H 23 08/25/18 18:40 109 H 24 08/25/18 18:32 102 H 21 105/72 100 08/25/18 18:30 103 H 20 99 08/25/18 18:22 100 08/25/18 18:20 104 H 21 94 08/25/18 18:10 100 H 25 H 96 08/25/18 18:03 109 H 27 H 93 08/25/18 18:01 111 H 24 98/75 L 96 08/25/18 18:00 110 H 20 99/75 L 08/25/18 17:56 100 08/25/18 17:50 104 H 23 97 08/25/18 17:40 114 H 23 96 08/25/18 17:30 107 H 25 H 100 08/25/18 17:28 100 08/25/18 17:20 104 H 27 H 08/25/18 17:12 108 H 25 H 08/25/18 16:58 36.6 C 61 20 108/72 99
--- NOTE | 2018-08-25 21:01 | History & Physical Report ---
Date of Service August 25, 2018 Assessment & Plan (1) Hypotension: Secondary to hypovolemia secondary to perforated gastric ulcer, hx GERD as per records Severe sepsis SIRS with lactic acid elevation Possible adrenal insufficiency given recent prednisone course Hypoxemic respiratory failure, possibly chronic Patient noted to have low O2 sats at PCPs office on ER follow-up 2 days ago Likely from COPD given emphysematous changes on imaging Past tobacco abuse chronic diastolic heart failure (EF 60 to 64%, TTE 2018 ) Equivocal volume status some congestion noted on CXR, patient seems to be intravascular dry . PVD status post surgery history of CVA/cerebral aneurysm as per records chronic anemia, hemoglobin at baseline Steroid-induced hyperglycemia rule out DM ICU NPO Surgery consult perforated gastric ulcer (ER provider already in touch with Dr. Hughes who will be performing emergent exploratory laparotomy tonight.) Cultures, follow lactic acid Zosyn, careful IV hydration Decadron 1 dose for possible adrenal insufficiency given recent prednisone course. Supplemental O2, baseline ABG Nebs as needed Outpatient PFTs Update TTE RE possible CHF check hemoglobin A1c IV PPI twice daily for GI prophylaxis DVT prophylaxis. SCDs Full code Total critical care time was 45 minutes. History of Present Illness Chief Complaint: Abdominal pain Primary Care Provider: Sherwin Garcia MD History obtained from patient, family, and records. Medical history significant for chronic heart failure (EF 60 to 64%, TTE 2018 ), hypertension, PVD status post surgery, history of CVA, cerebral aneurysm as per records, hyperlipidemia, paraproteinemia as per records, past tobacco abuse, chronic anemia baseline hemoglobin of 11, history GERD Recent confinement January 2018 for left hip fracture status post surgery. Patient seen at the ER 4 days ago for shortness of breath on minimal exertion. Emphysema imaging. patient subsequently completed prednisone course and neb treatment. Minimal symptom relief. Patient seen on follow-up at PCPs office 2 days ago. O2 sats in the office 88 on room air Outpatient PFTs, Cardiology consult contemplated as per notes. This afternoon patient noted epigastric discomfort described as fullness and increasing shortness of breath due to inability to take a deep breath. No chest pain, no cough symptoms. Bowel movement in a.m. was not black or bloody. No emesis, no fever, no chills. At the ER, IV Zosyn, IV PPI given for perforated gastric ulcer. 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 Allergies Allergy/AdvReac Type Severity Reaction Status Date / Time hydrocodone Allergy Intermediate CONFUSION Verified 08/25/18 18:06 ramipril Allergy Intermediate Nausea Verified 08/25/18 18:06 Sulfa (Sulfonamide Allergy Intermediate Nausea Verified 08/25/18 18:06 Antibiotics) Home Medications Home Medications Medication Instructions Recorded Confirmed Type atorvastatin 80 mg PO HS 02/22/18 08/25/18 History multivitamin 1 tab PO QAM 02/22/18 08/25/18 History omega 9-hed-dlv-fish oil [Fish Oil] 1,000 mg PO QAM 02/22/18 08/25/18 History albuterol sulfate 2 puffs INH Q4H PRN #6.7 gm 08/21/18 08/25/18 Rx timolol maleate 1 drp OPL QAM 08/21/18 08/25/18 History aspirin 325 mg PO QAM 08/25/18 08/25/18 History doxycycline hyclate 100 mg PO BID 08/25/18 08/25/18 History naproxen sodium [Aleve] 220 mg PO Q12H PRN 08/25/18 08/25/18 History prednisone 40 mg PO QAM 08/25/18 08/25/18 History Past Med/Surg History Medical History Atrial ectopic tachycardia Hyperlipidemia CVA (cerebral vascular accident) HTN (hypertension) Hip fracture (Acute) Acute dyspnea (Inactive) Anemia (Inactive) Bigeminy (Inactive) GERD (gastroesophageal reflux disease) Hyperlipidemia Hypertension no meds currently Stroke Surgical History History of carotid endarterectomy History of cataract extraction History of hand surgery History of tonsillectomy Family History Other Family history non-contributory Social History Preferred Language: Tuvaluan Communication Ability: Effective Visual Impairment: No Limitations Beliefs That Will Affect Care: None marital status: Current Living Situation: Spouse Other Information That Helps Us Care for You: No Feels Safe at Home: Yes Safety Concerns: Feels Safe At This Time Smoking Status: Never smoker Hx Alcohol Use: No Hx Substance Use: No Review of Systems Review of Systems: As per HPI, all 10 systems reviewed, all other ROS negative Physical Exam Physical Exam: GENERAL: uncomfortable, minimal respiratory distress SKIN: Pallor, warm HEENT: Pale palpebral conjunctivae, no ptosis, dry buccal mucosa, nasal cannula in place NECK : Supple, no tenderness CHEST : Decreased breath sounds, no tenderness HEART : Tachycardic, systolic murmur ABDOMEN: distention, epigastric tenderness EXTREMITIES : Minimal LE swelling, no LE tenderness, no other conspicuous deformities noted NEUROLOGIC : Coherent, no facial asymmetry, no other gross focality Results & Data Vital Signs (Past 12 Hours) Vital Signs Temp Pulse Resp BP Pulse Ox 08/25/18 20:50 108 H 26 H 94 08/25/18 20:40 107 H 22 96 08/25/18 20:31 109 H 24 101/78 92 08/25/18 20:30 109 H 21 91 08/25/18 20:20 109 H 24 08/25/18 20:10 108 H 22 96 08/25/18 20:02 116 H 22 96 08/25/18 20:00 111 H 21 92 08/25/18 19:50 109 H 100 08/25/18 19:40 109 H 20 92 08/25/18 19:31 108 H 23 120/80 96 08/25/18 19:30 106 H 23 91 08/25/18 19:20 108 H 24 08/25/18 19:19 95 08/25/18 19:18 82 L 08/25/18 19:10 111 H 24 08/25/18 19:09 111 H 23 86/65 L 08/25/18 19:05 106 H 21 08/25/18 19:04 109 H 22 82/51 L 08/25/18 19:02 110 H 22 08/25/18 19:00 113 H 20 08/25/18 18:53 114 H 23 08/25/18 18:40 109 H 24 08/25/18 18:32 102 H 21 105/72 100 08/25/18 18:30 103 H 20 99 08/25/18 18:22 100 08/25/18 18:20 104 H 21 94 08/25/18 18:10 100 H 25 H 96 08/25/18 18:03 109 H 27 H 93 08/25/18 18:01 111 H 24 98/75 L 96 08/25/18 18:00 110 H 20 99/75 L 08/25/18 17:56 100 08/25/18 17:50 104 H 23 97 08/25/18 17:40 114 H 23 96 08/25/18 17:30 107 H 25 H 100 08/25/18 17:28 100 08/25/18 17:20 104 H 27 H 08/25/18 17:12 108 H 25 H 08/25/18 16:58 36.6 C 61 20 108/72 99 Laboratory Results Laboratory Results WBC 12.54 K/uL (4.8-10.8) H 08/25/18 17:25 RBC 3.88 M/uL (4.2-5.4) L 08/25/18 17:25 Hgb 11.4 g/dL (12.0-16.0) L 08/25/18 17:25 Hct 35.0 % (37-47) L 08/25/18 17:25 MCV 90.2 fL (80-100) 08/25/18 17:25 MCH 29.4 pg (25-34) 08/25/18 17:25 MCHC 32.6 g/dL (32-36) 08/25/18 17:25 RDW Std Deviation 52.1 fL (36.4-46.3) H 08/25/18 17:25 RDW Coeff of Lyssa 15.8 % (11.5-14.5) H 08/25/18 17:25 Plt Count 360 K/uL (130-400) 08/25/18 17:25 MPV 9.3 fL (7.4-10.4) 08/25/18 17:25 Immature Gran % (Auto) 0.3 % 08/25/18 17:25 Neut % (Auto) 90.4 % 08/25/18 17:25 Lymph % (Auto) 3.6 % 08/25/18 17:25 [place] % (Auto) 5.6 % 08/25/18 17:25 Eos % (Auto) 0.0 % 08/25/18 17:25 Baso % (Auto) 0.1 % 08/25/18 17:25 Immature Gran # (Auto) 0.04 K/uL (0.00-0.02) H 08/25/18 17:25 Neut # (Auto) 11.34 K/uL (1.4-6.5) H 08/25/18 17:25 Lymph # (Auto) 0.45 K/uL (1.2-3.4) L 08/25/18 17:25 [place] # (Auto) 0.70 K/uL (0.11-0.59) H 08/25/18 17:25 Eos # (Auto) 0.00 K/uL (0-0.5) 08/25/18 17:25 Baso # (Auto) 0.01 K/uL (0-0.2) 08/25/18 17:25 Sodium 134 mmol/L (136-145) L 08/25/18 17:25 Potassium 4.0 mmol/L (3.5-5.1) 08/25/18 17:25 Chloride 101 mmol/L (98-107) 08/25/18 17:25 Carbon Dioxide 22 mmol/L (21-32) 08/25/18 17:25 Anion Gap 12.0 (3-11) H 08/25/18 17:25 BUN 19 mg/dl (7-18) H 08/25/18 17:25 Creatinine 1.05 mg/dl (0.6-1.2) 08/25/18 17:25 Est Cr Clr Drug Dosing Not Reportable 08/25/18 17:25 Est GFR ( Amer) 62.8 08/25/18 17:25 Est GFR (Non-Af Amer) 54.1 08/25/18 17:25 BUN/Creatinine Ratio 17.9 (10-20) 08/25/18 17:25 Glucose 125 mg/dl (70-99) H 08/25/18 17:25 Calcium 9.1 mg/dl (8.5-10.1) 08/25/18 17:25 Magnesium 2.0 mg/dl (1.8-2.4) 08/25/18 17:25 Total Bilirubin 1.2 mg/dl (0.2-1) H 08/25/18 17:25 AST 72 U/L (15-37) H 08/25/18 17:25 ALT 64 U/L (12-78) 08/25/18 17:25 Alkaline Phosphatase 101 U/L (45-117) 08/25/18 17:25 Troponin I < 0.015 ng/ml (0-0.045) 08/25/18 17:25 Total Protein 7.8 gm/dl (6.4-8.2) 08/25/18 17:25 Albumin 3.7 gm/dl (3.4-5.0) 08/25/18 17:25 Globulin 4.1 gm/dl (2.5-4.0) H 08/25/18 17:25 Albumin/Globulin Ratio 0.9 (0.9-2) 08/25/18 17:25 Lipase 227 U/L (73-393) 08/25/18 17:25 TSH 0.147 uIu/ml (0.300-4.500) L 08/25/18 17:25 Urine Color Yellow 08/25/18 17:26 Urine Appearance Clear (Clear) 08/25/18 17:26 Urine pH 5.5 (4.5-7.5) 08/25/18 17:26 Ur Specific [place] 1.020 (1.000-1.030) 08/25/18 17:26 Urine Protein 2+ (Negative) H 08/25/18 17:26 Urine Glucose (UA) Negative (Negative) 08/25/18 17:26 Urine Ketones Trace (Negative) H 08/25/18 17:26 Urine Blood Negative (Negative) 08/25/18 17:26 Urine Nitrite Negative (Negative) 08/25/18 17:26 Urine Bilirubin Negative (Negative) 08/25/18 17:26 Urine Urobilinogen Negative (Negative) 08/25/18 17:26 Ur Leukocyte Esterase Negative (Negative) 08/25/18 17:26 Urine WBC (Auto) 1-5 /hpf (0-5) 08/25/18 17:26 Urine RBC (Auto) 0-4 /hpf (0-4) 08/25/18 17:26 U Hyaline Cast (Auto) 0 /lpf (0-5) 04/28/19 17:26 U Epithel Cells (Auto) 10-20 /lpf (0-5) H 08/25/18 17:26 Urine Bacteria (Auto) Negative (Negative) 08/25/18 17:[address] abdomen pelvis: 1. Acute perforated gastric ulcer about the lesser curvature of the distal gastric body with large volume of upper abdominal pneumoperitoneum. Ascites intermixed with free air is noted about the left subdiaphragmatic distribution. There is no well loculated abscess identified at this time. Surgical consultation is needed. 2. No bowel obstruction. 3. Colonic diverticulosis without acute diverticulitis. 4. Markedly atrophic right kidney with severe right-sided renal arterial stenosis. 5. Trace pleural effusions. Chest x-ray: 1. Acute perforated gastric ulcer about the lesser curvature of the distal gastric body with large volume of upper abdominal pneumoperitoneum. Ascites intermixed with free air is noted about the left subdiaphragmatic distribution. There is no well loculated abscess identified at this time. Surgical consultation is needed. 2. No bowel obstruction. 3. Colonic diverticulosis without acute diverticulitis. 4. Markedly atrophic right kidney with severe right-sided renal arterial stenosis. 5. Trace pleural effusions. EKG as per my interpretation rate 110, sinus tachycardia, PACs
[2018-08-25] MEDS ORDERED: ICU PROTOCOL FOR HYPERGLYCEMIA PRN (21:06)
[2018-08-25] MEDS ORDERED: PROMETHAZINE HCL 12.5 MG in SODIUM CHLORIDE 0.9% 50 ML IV PRN (21:06)
[2018-08-25] MEDS ORDERED: HYDROmorphone INJ 0.5 MG/0.5 ML SYR IV PRN (21:06)
[2018-08-25 21:17] LABS: INR 1.2 (0.9-1.1); Partial Thromboplastin Time 26.2 Seconds (21.0-31.0); Prothrombin Time 12.6 Seconds (9.0-12.0)
--- NOTE | 2018-08-25 21:29 | Anesthesiology Consultation ---
Date of Service August 25, 2018 Assessment & Plan (1) Encounter for pre-operative examination: Chart Review Chart Review: Acceptable Risk for Surgery and Patient NOT seen in Pre Admission Testing Consults Requested none NPO Date Last Intake of Fluids: 08/25/18 Time Last Intake of Fluids: 08:00 Date Last Intake of Solids: 08/25/18 Time Last Intake of Solids: 08:00 History Surgery Operation Date: 08/25/18 21:00 Proposed Procedures p Exploratory Laparotomy - Nam Hughes, Height/Weight Weight: 57.606 kg Allergies Allergy/AdvReac Type Severity Reaction Status Date / Time hydrocodone Allergy Intermediate CONFUSION Verified 08/25/18 18:06 ramipril Allergy Intermediate Nausea Verified 08/25/18 18:06 Sulfa (Sulfonamide Allergy Intermediate Nausea Verified 08/25/18 18:06 Antibiotics) Medications Home Medications Medication Instructions Recorded Confirmed Last Taken atorvastatin 80 mg PO HS 02/22/18 08/25/18 08/24/18 multivitamin 1 tab PO QAM 02/22/18 08/25/18 08/25/18 omega 3-wld-wkt-fish oil [Fish Oil] 1,000 mg PO QAM 02/22/18 08/25/18 08/25/18 albuterol sulfate 2 puffs INH Q4H PRN #6.7 gm 08/21/18 08/25/18 08/25/18 16:00 timolol maleate 1 drp OPL QAM 08/21/18 08/25/18 08/25/18 aspirin 325 mg PO QAM 08/25/18 08/25/18 08/25/18 doxycycline hyclate 100 mg PO BID 08/25/18 08/25/18 08/25/18 naproxen sodium [Aleve] 220 mg PO Q12H PRN 08/25/18 08/25/18 08/25/18 03:00 prednisone 40 mg PO QAM 08/25/18 08/25/18 08/25/18 Active Medications Generic Name Dose Route Start Last Admin Trade Name Freq PRN Reason Stop Dose Admin Pantoprazole Sodium 40 mg/ 100 mls @ 20 mls/hr 08/25/18 20:15 08/25/18 20:41 Dextrose IV 08/26/18 01:14 20 mls/hr Q5H MALLORY Administration Ioversol 94 ml 08/25/18 18:43 08/25/18 18:44 Optiray 320 100ml IV 08/29/18 18:42 94 ml ONCE PRN Administration Interaction Checking Past Medical History Medical History Atrial ectopic tachycardia Hyperlipidemia CVA (cerebral vascular accident) HTN (hypertension) Hip fracture (Acute) Acute dyspnea (Inactive) Anemia (Inactive) Bigeminy (Inactive) GERD (gastroesophageal reflux disease) Hyperlipidemia Hypertension no meds currently Stroke Past Family History Family History Other Family history non-contributory Past Surgical History Surgical History History of carotid endarterectomy History of cataract extraction History of hand surgery History of tonsillectomy Social History Smoking Status: Never smoker Hx Alcohol Use: Yes Alcohol type: wine alcohol intake frequency: holidays/special occasions only Hx Substance Use: No Physical Exam Vital Signs Last Vital Signs Temp 36.6 C 08/25/18 16:58 Pulse 108 H 08/25/18 20:50 Resp 26 H 08/25/18 20:50 BP 101/78 08/25/18 20:31 Pulse Ox 94 08/25/18 20:50 Testing Laboratory Results 08/25/18 17:25 08/25/18 17:25 PT 12.6 Seconds (9.0-12.0) H 08/25/18 20:35 INR 1.2 (0.9-1.1) H 08/25/18 20:35 APTT 26.2 Seconds (21.0-31.0) 08/25/18 20:35 Urine Color Yellow 08/25/18 17:26 Urine Appearance Clear (Clear) 08/25/18 17:26 Urine pH 5.5 (4.5-7.5) 08/25/18 17:26 Ur Specific [place] 1.020 (1.000-1.030) 08/25/18 17:26 Urine Protein 2+ (Negative) H 08/25/18 17:26 Urine Glucose (UA) Negative (Negative) 08/25/18 17:26 Urine Ketones Trace (Negative) H 08/25/18 17:26 Urine Nitrite Negative (Negative) 08/25/18 17:26 Ur Leukocyte Esterase Negative (Negative) 08/25/18 17:26 Urine WBC (Auto) 1-5 /hpf (0-5) 08/25/18 17:26 Urine RBC (Auto) 0-4 /hpf (0-4) 08/25/18 17:26 U Hyaline Cast (Auto) 0 /lpf (0-5) 08/25/18 17:26 U Epithel Cells (Auto) 10-20 /lpf (0-5) H 08/25/18 17:26 Urine Bacteria (Auto) Negative (Negative) 08/25/18 17:26
[2018-08-25] MEDS ORDERED: ATROPINE SULFATE 0.1 MG/ML 10ML SYR IV PRN (21:30)
[2018-08-25] MEDS ORDERED: ONDANSETRON INJ 2 MG/ML 2 ML VIAL IV PRN (21:30)
[2018-08-25] MEDS ORDERED: fentaNYL citrate 100 MCG/2 ML VIAL IV PRN (21:30)
[2018-08-25] MEDS ORDERED: ePHEDrine sulfate 50 MG/ML AMP IV PRN (21:30)
[2018-08-25] MEDS ORDERED: PROMETHAZINE HCL 6.25 MG in SODIUM CHLORIDE 0.9% 50 ML IV PRN (21:30)
[2018-08-25] MEDS ORDERED: HYDROmorphone INJ 2 MG/ML SYR/VIAL IV PRN (21:30)
[2018-08-25] MEDS ORDERED: fentaNYL citrate 100 MCG/2 ML VIAL ONE (21:43)
[2018-08-25] MEDS ORDERED: TISSEEL FIBRIN SEALANT 4ML TOP ONE (22:25)
[2018-08-25] MEDS ORDERED: DEXAMETHASONE SOD INJ 4 MG/ML VIAL ONE (22:44)
[2018-08-25] MEDS ORDERED: PROPOFOL IV EMULSION 10 MG/ML 20 ML VIAL IV ONE (22:44)
[2018-08-25] MEDS ORDERED: SUCCINYLCHOLINE CHLORIDE 20 MG/ML 10 ML VIAL ONE (22:44)
[2018-08-25] MEDS ORDERED: ROCURONIUM BROMIDE 10 MG/ML 5 ML VIAL ONE (22:44)
[2018-08-25] MEDS ORDERED: LIDOCAINE HCL 2% 2 ML VIAL/AMP(20MG/ML) INFIL ONE (22:44)
[2018-08-25] MEDS ORDERED: SUGAMMADEX SODIUM 200 MG/2 ML VIAL IV ONE (23:37)
--- NOTE | 2018-08-25 23:44 | Operative Report ---
Post Operative Report Pre & Post Diagnosis Operation Date: 08/25/18 21:00 Pre-Op Diagnosis: Perforated gastric ulcer Post-Op Diagnosis: Perforated gastric ulcer Procedure Operation Date: 08/25/18 21:00 Actual Procedures p Laparoscopy, Conversion to Laparotomy, Oversew of perforated gastric ulcer, Jonn patch, Abdominal washout(Not Applicable) - Nam Hughes DO Surgeon Nam Hughes DO Relations Liaison n/a Estimated Blood Loss 25 Findings Consistent with Post-Op Diagnosis Specimens none Description of Procedure After informed consent was obtained the patient was taken to the operating room and placed in supine position. After successful intubation a Camacho catheter was placed and the abdomen was sterilely prepped and draped in usual fashion. A supraumbilical incision was made with a 10 blade scalpel and carried down through the soft tissue using cautery. The anterior rectus fascia was opened using cautery and two #0 Vicryl stay sutures were placed. Peritoneum was entered using blunt finger penetration and a finger sweep was performed. A 12 mm Gould trocar was placed and the abdomen was insufflated to 16 mmHg. The laparoscope was inserted and the abdomen was examined in 360 degrees. There was some bilious fluid in the right and left upper quadrants. I placed a left upper quadrant 5 mm port a left mid abdominal 5 mm port a right upper quadrant 12 mm port and a right flank 5 mm port. A liver retractor attached to the table was used to help with exposure. We began by irrigating and suctioning out the fluid in the upper abdomen. The liver retractor was used to elevate the left lobe of the liver. The liver did have a cirrhotic nature to it making it very firm. There was cobblestoning as well. I opened up the gastrohepatic ligament and began examining the stomach. The duodenum appeared normal. The greater curvature of the stomach appeared normal as did the anterior surface. There was some inflammatory process along the lesser curvature but despite looking for quite some time I was unable to identify the perforation. At this point time I converted to a laparotomy. I extended the supraumbilical incision up to the xiphoid process using a 10 blade scalpel and opened the fascia using cautery. All the trochars and laparoscopic instruments had been removed. I tied off the falciform ligament using 2-0 silk. A Bookwalter retractor was used throughout the open portion of the case to help with our exposure as well. Once I was able to mobilize the stomach with my hands I was able to roll it over and identified a perforation on the lesser curvature but on the posterior portion of the stomach. It was a very small perforation. I was going to try and oversew it with 2 layers but it was too stiff and the sutures ended up pulling through the tissue. I therefore used 2-0 silk in simple interrupted fashion to primarily close the perforation encorporating serosal and mucosal layers. Once I had it closed I covered the entire area of the ulcer and perforation with Tisseel glue. We then used some fat from the lesser curvature of the stomach to place as a Jonn patch. It was secured to the stomach using 2-0 silk as well. Once we had it closed anesthesia tried multiple attempts with multiple sizes but was unable to pass an NG tube. The stomach was decompressed already. We thoroughly irrigated the entire abdomen with multiple liters of warm irrigant. We continued to irrigate until the irrigant was clear. A 10 flat Subhash-Gean drain was brought in through 1 of the port sites and placed under the left lobe of the liver. It was secured to the skin using 2-0 silk. The fascia of the incision was closed using 0-loop PDS starting either pole and running them and securing them together in the midline. Soft tissue was irrigated and skin was closed using skin leonila. Silver dressings were applied. The patient was awakened, extubated and transferred to intensive care unit in guarded condition. I attest to the content of the Intraoperative Record and any orders documented therein. Any exceptions are noted below.
[2018-08-25 23:59] LABS: NT Pro B Type Natriuretic Pept 11926 pg/ml (0-900)
[2018-08-26] MEDS ORDERED: HYDROmorphone INJ 2 MG/ML SYR/VIAL IV PRN (00:18)
[2018-08-26] MEDS ORDERED: ACETAMINOPHEN 1,000 MG/100 ML VIAL IV PRN (00:18)
[2018-08-26] MEDS ORDERED: HYDROmorphone INJ 1 MG/ML SYRINGE IV PRN (00:18)
--- NOTE | 2018-08-26 00:24 | Anesthesiology Progress Note ---
Date of Service August 26, 2018 Anesthesia Post Procedure Vital Signs Vital Signs: Temp Pulse Resp BP Pulse Ox 08/25/18 20:50 108 H 26 H 94 08/25/18 20:40 107 H 22 96 08/25/18 20:31 109 H 24 101/78 92 08/25/18 20:30 109 H 21 91 08/25/18 20:20 109 H 24 08/25/18 20:10 108 H 22 96 08/25/18 20:02 116 H 22 96 08/25/18 20:00 111 H 21 92 08/25/18 19:50 109 H 100 08/25/18 19:40 109 H 20 92 08/25/18 19:31 108 H 23 120/80 96 08/25/18 19:30 106 H 23 91 08/25/18 19:20 108 H 24 08/25/18 19:19 95 08/25/18 19:18 82 L 08/25/18 19:10 111 H 24 08/25/18 19:09 111 H 23 86/65 L 08/25/18 19:05 106 H 21 08/25/18 19:04 109 H 22 82/51 L 08/25/18 19:02 110 H 22 08/25/18 19:00 113 H 20 08/25/18 18:53 114 H 23 08/25/18 18:40 109 H 24 08/25/18 18:32 102 H 21 105/72 100 08/25/18 18:30 103 H 20 99 08/25/18 18:22 100 08/25/18 18:20 104 H 21 94 08/25/18 18:10 100 H 25 H 96 08/25/18 18:03 109 H 27 H 93 08/25/18 18:01 111 H 24 98/75 L 96 08/25/18 18:00 110 H 20 99/75 L 08/25/18 17:56 100 08/25/18 17:50 104 H 23 97 08/25/18 17:40 114 H 23 96 08/25/18 17:30 107 H 25 H 100 08/25/18 17:28 100 08/25/18 17:20 104 H 27 H 08/25/18 17:12 108 H 25 H 08/25/18 16:58 36.6 C 61 20 108/72 99 Pain Intensity Left Abdomen: Pain Intensity: 6 Notes Mental Status: alert / awake / arousable Patient Amnestic to Procedure: Yes Nausea / Vomiting: adequately controlled Pain: adequately controlled Airway Patency, RR, SpO2: stable & adequate BP & HR: stable & adequate Hydration State: stable & adequate Anesthetic Complications: no major complications apparent Notes: Patient with 4 twitches and fully reversed at end of case, but pulling small tidal volumes on SV mode and appeared weak. Responded well to 200mg Bridion and extubated without incident.
[2018-08-26] MEDS: LACTATED RINGER'S 1,000 ML IV SCH ×3 (00:37→23:15)
[2018-08-26] MEDS: SODIUM CHLORIDE 0.9% 500 ML IV SCH ×2 (00:40→00:42)
[2018-08-26] MEDS ORDERED: ALBUMIN 25% 50 ML IV ONE ×4 (00:49→05:34)
[2018-08-26] MEDS: PIPERACILLIN/TAZOBACTAM 3.375 GM in DEXTROSE 5% 100 ML IV SCH ×3 (01:34→17:51)
[2018-08-26] MEDS ORDERED: DEXAMETHASONE SOD PHOSPHATE 4 MG in SYRINGE 0 ML IV STA (01:50)
[2018-08-26] MEDS: LEVALBUTEROL 1.25MG/0.5ML NEB INH SCH ×4 (01:57→20:06)
[2018-08-26] MEDS: IPRATROPIUM BROMIDE NEB SOLN 0.02% 2.5 ML VIAL INH SCH ×4 (01:57→20:06)
[2018-08-26] MEDS ORDERED: XOPENEX/ATROVENT 1.25mg/0.5MG NEB COMBO NEB SCH (02:00)
[2018-08-26 02:12] LABS: Hematocrit (blood only) 26.4 % (37-47); Hemoglobin 8.5 g/dL (12.0-16.0); Mean Corpuscular Hgb Conc 32.2 g/dL (32-36); Platelet Count 321 K/uL (130-400); RDW Coefficient of Variation 15.9 % (11.5-14.5); RDW Standard Deviation 54.1 fL (36.4-46.3); Red Blood Count 2.84 M/uL (4.2-5.4); White Blood Count 14.07 K/uL (4.8-10.8)
[2018-08-26 02:20] LABS: iSTAT Allen Test Pass; iSTAT Arterial Blood Gas HCO3 20 meg/L (19-24); iSTAT Arterial Blood Gas pCO2 53 mmHg (35-46); iSTAT Arterial Blood Gas pH 7.18 (7.35-7.45); iSTAT Carbon Dioxide 22 mEq/l (24-31); iSTAT Site L Radial
[2018-08-26 02:31] LABS: BUN Creatinine Ratio 16.2 (10-20); Calcium 7.2 mg/dl (8.5-10.1); Creatinine Clr Calc Pharmacy 43.5 ml/min; Est GFR (African American) 65.8; Est GFR (Non-African American) 56.8; Magnesium 1.6 mg/dl (1.8-2.4); Potassium 4.1 mmol/L (3.5-5.1)
[2018-08-26] MEDS ORDERED: NALOXONE HCL 0.4 MG/1 ML VIAL/CARP IV STA (02:31)
[2018-08-26] MEDS ORDERED: NALOXONE HCL 0.4 MG/1 ML VIAL/CARP ONE (02:31)
[2018-08-26] MEDS ORDERED: MAGNESIUM SULFATE / D5W 1 GM/100 ML BAG IV ONE (02:32)
[2018-08-26] MEDS ORDERED: LACTATED RINGER'S 250 ML IV ONE (02:38)
[2018-08-26] MEDS ORDERED: OLANZapine 10 MG/2.1 ML SDV IM PRN (02:39)
[2018-08-26 03:06] LABS: Albumin Level 3.1 gm/dl (3.4-5.0)
[2018-08-26 03:09] LABS: Basophils # (auto) 0.01 K/uL (0-0.2); Basophils % (auto) 0.1 %; Immature Granulocytes # (auto) 0.03 K/uL (0.00-0.02); Immature Granulocytes % (auto) 0.2 %; Lymphocytes # (auto) 0.32 K/uL (1.2-3.4); Lymphocytes % (auto) 2.3 %; Monocytes # (auto) 0.72 K/uL (0.11-0.59); Monocytes % (auto) 5.1 %; Neutrophils # (auto) 12.99 K/uL (1.4-6.5); Neutrophils % (auto) 92.3 %
[2018-08-26] MEDS: MAGNESIUM SULFATE / D5W 1 GM/100 ML BAG IV SCH ×2 (03:14→04:17)
[2018-08-26] MEDS ORDERED: CALCIUM GLUCONATE 10% 10 ML VIAL IV STA (03:18)
[2018-08-26 03:24] LABS: iSTAT Allen Test Pass; iSTAT Arterial Blood Gas HCO3 20 meg/L (19-24); iSTAT Arterial Blood Gas pCO2 41 mmHg (35-46); iSTAT Carbon Dioxide 21 mEq/l (24-31); iSTAT Site L Radial
[2018-08-26] MEDS ORDERED: CALCIUM GLUCONATE 10% 2,000 MG in SODIUM CHLORIDE 0.9% 50 ML IV STA (03:25)
--- NOTE | 2018-08-26 03:30 | Hospitalist Progress Note ---
Date of Service August 26, 2018 Subjective Made aware by STENOGRAPHER SECRETARY of postop SBPs 70-90s after midnight. Dilaudid 2 mg administered for pain postoperatively. Patient noted to be lethargic. AP Hypotension Multifactorial : Hypovolemia Narcotic side effect Sepsis ? adrenal insufficiency, recent steroid Rx IV albumin for fluid resuscitation. Hesitant to give massive crystalloid boluses given pulmonary congestion, pleural effusion on admission x-ray, markedly elevated BNP causing some degree of hypoxemia; Lasix precluded for now given low BP Narcan 1 dose; hold as needed Dilaudid; utilize IV Fentanyl for analgesia Decadron 1 dose for possible adrenal insufficiency Initiate pressor support with Rubén-Synephrine if with persistent hypotension, lactic acid elevation. Will relay to AM provider. Results & Data Vital Signs (Past 12 Hours) Vital Signs Temp Pulse Pulse Resp BP BP Pulse Ox 08/26/18 03:02 102 H 22 89/66 L 100 08/26/18 03:00 99 H 21 100 08/26/18 02:51 105 H 19 89/65 L 100 08/26/18 02:41 113 H 22 86/66 L 100 08/26/18 02:36 120 H 26 H 89/63 L 100 08/26/18 02:17 100 H 12 67/45 L 87 L 08/26/18 02:00 100 H 15 96 08/26/18 01:58 97 H 7 L 89 L 08/26/18 01:57 84 14 97 08/26/18 01:52 101 H 16 98 08/26/18 01:50 94 H 9 L 67/41 L 98 08/26/18 01:43 95 H 10 L 97 08/26/18 01:30 95 H 12 85/50 L 95 08/26/18 01:21 96 H 10 L 72/46 L 95 08/26/18 01:18 100 H 17 96/57 L 91 08/26/18 01:05 99 H 18 71/56 L 97 08/26/18 01:00 99 H 14 85 L 08/26/18 00:57 99 H 22 83/59 L 92 08/26/18 00:47 105 H 19 77/56 L 97 08/26/18 00:42 111 H 18 94/67 L 96 08/26/18 00:36 107 H 19 100/66 93 08/26/18 00:31 108 H 24 94/77 L 97 08/26/18 00:26 104 H 20 92/64 L 94 08/26/18 00:22 105 H 15 93/79 L 99 08/26/18 00:18 36.4 C L 104 H 16 88/56 L 94 08/26/18 00:16 109 H 22 127/67 97 08/26/18 00:15 36.4 C L 104 H 22 93/73 L 98 08/26/18 00:13 108 H 26 H 94/77 L 98 08/26/18 00:10 108 H 20 126/67 99 08/26/18 00:05 109 H 22 94/77 L 98 08/26/18 00:01 108 H 23 119/101 H 08/26/18 00:00 114 H 113 H 18 119/100 100 08/25/18 23:55 115 H 19 97/72 L 08/25/18 23:50 36.2 C L 116 H 17 08/25/18 20:50 108 H 26 H 94 08/25/18 20:40 107 H 22 96 08/25/18 20:31 109 H 24 101/78 92 08/25/18 20:30 109 H 21 91 08/25/18 20:20 109 H 24 08/25/18 20:10 108 H 22 96 08/25/18 20:02 116 H 22 96 08/25/18 20:00 111 H 21 92 08/25/18 19:50 109 H 100 08/25/18 19:40 109 H 20 92 08/25/18 19:31 108 H 23 120/80 96 08/25/18 19:30 106 H 23 91 08/25/18 19:20 108 H 24 08/25/18 19:19 95 08/25/18 19:18 82 L 08/25/18 19:10 111 H 24 08/25/18 19:09 111 H 23 86/65 L 08/25/18 19:05 106 H 21 08/25/18 19:04 109 H 22 82/51 L 08/25/18 19:02 110 H 22 08/25/18 19:00 113 H 20 08/25/18 18:53 114 H 23 08/25/18 18:40 109 H 24 08/25/18 18:32 102 H 21 105/72 100 08/25/18 18:30 103 H 20 99 08/25/18 18:22 100 08/25/18 18:20 104 H 21 94 08/25/18 18:10 100 H 25 H 96 08/25/18 18:03 109 H 27 H 93 08/25/18 18:01 111 H 24 98/75 L 96 08/25/18 18:00 110 H 20 99/75 L 08/25/18 17:56 100 08/25/18 17:50 104 H 23 97 08/25/18 17:40 114 H 23 96 08/25/18 17:30 107 H 25 H 100 08/25/18 17:28 100 08/25/18 17:20 104 H 27 H 08/25/18 17:12 108 H 25 H 08/25/18 16:58 36.6 C 61 20 108/72 99
[2018-08-26] MEDS: PHENYLEPHRINE HCL 20 MG in DEXTROSE 5% 500 ML IV SCH ×2 (03:47→09:03)
[2018-08-26 06:12] LABS: Estimated Average Glucose 123 mg/dl; Hemoglobin A1C 5.9 % (4.5-5.6)
[2018-08-26 06:44] LABS: Hemoglobin 6.2 g/dL (12.0-16.0)
[2018-08-26] MEDS ORDERED: SODIUM CHLORIDE 0.9% 250 ML IV PRN (06:46)
[2018-08-26] MEDS: PANTOprazole 40 MG in SYRINGE 0 ML IV SCH ×2 (07:31→21:01)
[2018-08-26] MEDS: TIMOLOL MALEATE 0.25% OP SOLN 5 ML BTL OPL SCH (07:31)
[2018-08-26] MEDS: fentaNYL citrate 100 MCG/2 ML VIAL IV PRN (07:37)
--- NOTE | 2018-08-26 08:31 | Surgery Progress Note ---
Date of Service August 26, 2018 Assessment & Plan (1) Acute gastric ulcer with perforation: pod 1/2 suspect she was dehydrated at admission masking anemia agree with transfusion. We had little to no bleeding intraoperatively hopefully can wean off brandon after transfusion. (2) Anemia: Subjective pt awake. having some pain but got narcan last night. Physical Exam Physical Exam: abd: soft. MERE with dark venous output. on neosynephrine for hypotension. Hg 6 Results & Data Vital Signs (Past 12 Hours) Vital Signs Temp Pulse Pulse Resp BP BP Pulse Ox 08/26/18 08:15 96 H 14 129/79 95 08/26/18 08:01 36.6 C 102 H 19 112/58 L 99 08/26/18 07:52 36.6 C 101 H 17 103/70 100 08/26/18 07:13 95 H 18 99 08/26/18 06:16 98 H 23 126/89 100 08/26/18 06:03 95 H 28 H 142/85 H 99 08/26/18 05:01 95 H 29 H 70/45 L 100 08/26/18 04:50 98 H 24 79/59 L 94 08/26/18 04:35 97 H 25 H 78/59 L 99 08/26/18 04:20 36.4 C L 99 H 19 80/62 L 96 08/26/18 04:01 36.5 C 99 H 16 103/56 L 88 L 08/26/18 03:02 102 H 22 89/66 L 100 08/26/18 03:00 99 H 21 100 08/26/18 02:51 105 H 19 89/65 L 100 08/26/18 02:41 113 H 22 86/66 L 100 08/26/18 02:36 120 H 26 H 89/63 L 100 08/26/18 02:17 100 H 12 67/45 L 87 L 08/26/18 02:00 100 H 15 96 08/26/18 01:58 97 H 7 L 89 L 08/26/18 01:57 84 14 97 08/26/18 01:52 101 H 16 98 08/26/18 01:50 94 H 9 L 67/41 L 98 08/26/18 01:43 95 H 10 L 97 08/26/18 01:30 95 H 12 85/50 L 95 08/26/18 01:21 96 H 10 L 72/46 L 95 08/26/18 01:18 100 H 17 96/57 L 91 08/26/18 01:05 99 H 18 71/56 L 97 08/26/18 01:00 99 H 14 85 L 08/26/18 00:57 99 H 22 83/59 L 92 08/26/18 00:47 105 H 19 77/56 L 97 08/26/18 00:42 111 H 18 94/67 L 96 08/26/18 00:36 107 H 19 100/66 93 08/26/18 00:31 108 H 24 94/77 L 97 08/26/18 00:26 104 H 20 92/64 L 94 08/26/18 00:22 105 H 15 93/79 L 99 08/26/18 00:18 36.4 C L 104 H 16 88/56 L 94 08/26/18 00:16 109 H 22 127/67 97 08/26/18 00:15 36.4 C L 104 H 22 93/73 L 98 08/26/18 00:13 108 H 26 H 94/77 L 98 08/26/18 00:10 108 H 20 126/67 99 08/26/18 00:05 109 H 22 94/77 L 98 08/26/18 00:01 108 H 23 119/101 H 08/26/18 00:00 114 H 113 H 18 119/100 100 08/25/18 23:55 115 H 19 97/72 L 08/25/18 23:50 36.2 C L 116 H 17 08/25/18 20:50 108 H 26 H 94 08/25/18 20:40 107 H 22 96 08/25/18 20:31 109 H 24 101/78 92 08/25/18 20:30 109 H 21 91
[2018-08-26] MEDS: ACETAMINOPHEN 65 ML IV PRN ×2 (08:47→16:02)
--- NOTE | 2018-08-26 11:13 | Critical Care Progress Note ---
Date of Service August 26, 2018 Assessment & Plan (1) Acute gastric ulcer with perforation: Reason Critically Ill: 68-year-old female here for shortness of breath, hypotension, and epigastric pain 2/2 perforated gastric ulcer s/p laparoscopy converted to laparotomy with gastric oversew and patch repair 08/25/2018. . Past medical history significant for CHFpEF, HTN, PVD, CVA, HLD, paraproteinemia, tobacco abuse, and chronic anemia. She is admitted for care in the ICU for severe anemia and continued bleeding into her MERE drain with inadequate UoP and increased oxygen requirements. Neuro CAM ICU: NEGATIVE Cardiac - Congestive Heart Failure with Preserved EF: - BNP 11.9K on admit. Shortness of breath may have a cardiac element in addition to anemic element. - TTE completed, report pending. - Clinically appears hypovolemic at this time, but follow carefully for fluid overload and risk for pulmonary edema with transfusions and IVF. Hyperlipidemia: Held Atorvastatin 80mg PO qHS in setting of NPO 2/2 gastric surgery Respiratory - Acute Respiratory Failure with Shortness of breath 2/2 acute on chronic anemia with possible cardiogenic component. - Hx COPD: Albuterol neb Q6H PRN, ipratropium .5mg INH Q6H, Albuterol INH Q6H PRN, - SpO2 100% on Oxymask. - Titrate O2 to goal SpO2>94%. - Anemia treatment as below GI - Perforated Gastric Ulcer s/p Gastric Oversew and Patch Repair. She is being followed by Dr. Hughes and the surgical service. Ulcer may have been chronic g iven history of anemia, unclear cause at this time. No excess NSAID use, does have a history of prednisone use. No H. pylori sampling taken, consider evaluation once stable. - NPO s/p gastric repair. - Protonix 40mg IV BID. Anticipate ~6-8 week total course of PPI therapy. - Pip/Yuri Q8H. Assuming good source control and improving clinical course after surgery would continue for 7 days. - Pain control with Fentanyl 12.5mcg Q1H PRN. Hydromorphone discontinued due to induction of hypotension. Ofirmev IV Q6H PRN. - Surgery following RENAL/LYTES - - Electrolytes normal. 136/4.1/106/25 - Creatinine 1.01, no JULIANN/prerenal - - Decreased UOP (470/24hours, 0.05cc/kg/hr) in last 24 hours. Concern for hypovolemia is setting of continued MERE losses. - Continue to follow. Will finish pRBC transfusion, re-evalutate for fluid bolus at completion. IVFM LR 50cc/hr. Balance fluids against hx of HFpEF and risk of induction of pulmonary edema. ENDO - - Glucose 160-240s today; A1C = 5.9%. - No pharmacologic glycemic control at this time. HEME - - Hgb decreased from 8.5 to 6.2 today. Pending completion of pRBC x2 unit infusion. - CBC daily with H&H Q6H. - Tranfusion threshold of 7g/dL. ID - See GI. Afebrile at this time. Leukocytosis to 14.07 today. Monitor fever curve. INTEGUMENTARY - - No bruising/lesions. - Abdominal surgical site appropriately tender. Dressing C/D/I without signs of dehiscence or infection. LINES/IV ACCESS - PIVs intact. DVT PROPHYLAXIS - - Held in setting of acute GIB. Thank you for allowing us to be part of this patient's care. Please refer to Dr Jeannie Vaughn's documentation for any further recommendations. (2) Anemia: (3) Hypotension: (4) Hypoxia: (5) HTN (hypertension): Subjective Rowena reports she continues to feel short of breath today. Her hospitalization was preceded by 1 month of fatigue which increased gradually with shortness of breath but without chestpain. She feels improved compared to admission, but not at her normal baseline. Denies fever, chills, chest pain today. Endorses some difficulty breathing laying flat but is able to sleep with only one pillow. She notes she had 'several good days' of breathing this past month and her shortness of breath has not been all the time. She had some stomach tenderness/pain at her surgical site today/. Denies nausea/vomiting/diarrhea/contsipation. Review of Systems Review of Systems: Constitutional: Denies fever, chills, weight change. Endorses fatigue Eyes: Denies double vision, vision change, eye pain ENT: Denies ear pain, sore throat, sinus pain Cardiovascular: Denies chest pain, chest pressure, palpitations, extremity swelling Respiratory: Endorses shortness of breath. Denies cough, sputum production, difficulty breathing Gastrointestinal: Endorses epigastric/central abdominal discomfort. Denies vomiting, constipation, diarrhea, melena Musculoskeletal: Denies weakness, muscle aches/pain, joint aches/pain Integumentary:Denies new rash, lesions, bruising Neurological: Denies headache, numbness, tingling, focal weakness Physical Exam Physical Exam: General: A&Ox3. NAD. Cooperative. HEENT: Atraumatic, normocephalic. Pulm: Scattered basliar crackles, otherwise CTAB A&P. -wheezes, -rales, - rhonchi. Symmetrical chest rise. Speech slightly limited by dyspnea. No respiratory distress at rest. On 100%O2 oxymask. Cardiac: RRR, -mrg. Radial pulses intact and symmetrical. No JVD appreciated. Abdominal: Tender at the epigastrum and at central abdominal surgical site. Otherwise nondistended, soft. BS diminished. MERE drain present, draining ~30-40cc of blood. Results & Data Vital Signs (Past 12 Hours) Vital Signs Temp Pulse Pulse Resp BP BP Pulse Ox 08/26/18 11:01 96 H 20 126/69 100 08/26/18 10:52 90 18 100 08/26/18 10:46 36.7 C 96 H 23 96/64 L 100 08/26/18 10:32 90 21 100 08/26/18 10:31 36.5 C 88 16 92/55 L 100 08/26/18 10:15 36.5 C 90 17 110/69 95 08/26/18 10:06 36.6 C 90 17 99 08/26/18 10:00 36.7 C 88 22 105/55 L 100 08/26/18 09:27 98 08/26/18 09:16 36.7 C 103 H 24 113/67 93 08/26/18 09:01 93 H 22 123/73 100 08/26/18 09:00 36.7 C 92 H 19 123/73 98 08/26/18 08:45 97 H 19 134/72 100 08/26/18 08:30 36.7 C 96 H 17 125/73 100 08/26/18 08:15 96 H 14 129/79 95 08/26/18 08:01 36.6 C 102 H 19 112/58 L 99 08/26/18 07:52 36.6 C 101 H 17 103/70 100 08/26/18 07:13 95 H 18 99 08/26/18 06:16 98 H 23 126/89 100 08/26/18 06:03 95 H 28 H 142/85 H 99 08/26/18 05:01 95 H 29 H 70/45 L 100 08/26/18 04:50 98 H 24 79/59 L 94 08/26/18 04:35 97 H 25 H 78/59 L 99 08/26/18 04:20 36.4 C L 99 H 19 80/62 L 96 08/26/18 04:01 36.5 C 99 H 16 103/56 L 88 L 08/26/18 03:02 102 H 22 89/66 L 100 08/26/18 03:00 99 H 21 100 08/26/18 02:51 105 H 19 89/65 L 100 08/26/18 02:41 113 H 22 86/66 L 100 08/26/18 02:36 120 H 26 H 89/63 L 100 08/26/18 02:17 100 H 12 67/45 L 87 L 08/26/18 02:00 100 H 15 96 08/26/18 01:58 97 H 7 L 89 L 08/26/18 01:57 84 14 97 08/26/18 01:52 101 H 16 98 08/26/18 01:50 94 H 9 L 67/41 L 98 08/26/18 01:43 95 H 10 L 97 08/26/18 01:30 95 H 12 85/50 L 95 08/26/18 01:21 96 H 10 L 72/46 L 95 08/26/18 01:18 100 H 17 96/57 L 91 08/26/18 01:05 99 H 18 71/56 L 97 08/26/18 01:00 99 H 14 85 L 08/26/18 00:57 99 H 22 83/59 L 92 08/26/18 00:47 105 H 19 77/56 L 97 08/26/18 00:42 111 H 18 94/67 L 96 08/26/18 00:36 107 H 19 100/66 93 08/26/18 00:31 108 H 24 94/77 L 97 08/26/18 00:26 104 H 20 92/64 L 94 08/26/18 00:22 105 H 15 93/79 L 99 08/26/18 00:18 36.4 C L 104 H 16 88/56 L 94 08/26/18 00:16 109 H 22 127/67 97 08/26/18 00:15 36.4 C L 104 H 22 93/73 L 98 08/26/18 00:13 108 H 26 H 94/77 L 98 08/26/18 00:10 108 H 20 126/67 99 08/26/18 00:05 109 H 22 94/77 L 98 08/26/18 00:01 108 H 23 119/101 H 08/26/18 00:00 114 H 113 H 18 119/100 100 08/25/18 23:55 115 H 19 97/72 L 08/25/18 23:50 36.2 C L 116 H 17 Laboratory Results 08/26/18 08/26/18 08/26/18 Range/Units 06:31 06:12 06:12 WBC (4.8-10.8) K/uL RBC (4.2-5.4) M/uL Hgb (12.0-16.0) g/dL Hct (37-47) % MCV (80-100) fL MCH (25-34) pg MCHC (32-36) g/dL RDW Std Deviation (36.4-46.3) fL RDW Coeff of Lyssa (11.5-14.5) % Plt Count (130-400) K/uL MPV (7.4-10.4) fL Immature Gran % (Auto) % Neut % (Auto) % Lymph % (Auto) % [place] % (Auto) % Eos % (Auto) % Baso % (Auto) % Immature Gran # (Auto) (0.00-0.02) K/uL Neut # (Auto) (1.4-6.5) K/uL Lymph # (Auto) (1.2-3.4) K/uL [place] # (Auto) (0.11-0.59) K/uL Eos # (Auto) (0-0.5) K/uL Baso # (Auto) (0-0.2) K/uL PT (9.0-12.0) Seconds INR (0.9-1.1) APTT (21.0-31.0) Seconds PTT Ratio Sample Site POC pH (7.35-7.45) POC pCO2 (35-46) mmHg POC pO2 (80-95) mmHg POC HCO3 (19-24) curtis/L POC Total CO2 (24-31) mEq/l POC Base Excess (-9-1.8) curtis/L POC ABG O2 Sat (90-95) % Gt Test O2 Delivery Device Sodium (136-145) mmol/L Potassium (3.5-5.1) mmol/L Chloride (98-107) mmol/L Carbon Dioxide (21-32) mmol/L Anion Gap (3-11) BUN (7-18) mg/dl Creatinine (0.6-1.2) mg/dl Est Cr Clr Drug Dosing Est GFR ( Amer) Est GFR (Non-Af Amer) BUN/Creatinine Ratio (10-20) Glucose (70-99) mg/dl POC Glucose 244 H (70-99) Estimat Average Glucose mg/dl Hemoglobin A1c (4.5-5.6) % Lactate 2.6 H* (0.4-2.0) mmol/L Calcium (8.5-10.1) mg/dl Magnesium (1.8-2.4) mg/dl Total Bilirubin (0.2-1) mg/dl AST (15-37) U/L ALT (12-78) U/L Alkaline Phosphatase (45-117) U/L Troponin I (0-0.045) ng/ml NT-Pro-B Natriuret Pep (0-900) pg/ml Total Protein (6.4-8.2) gm/dl Albumin (3.4-5.0) gm/dl Globulin (2.5-4.0) gm/dl Albumin/Globulin Ratio (0.9-2) Lipase (73-393) U/L TSH (0.300-4.500) uIu/ml Urine Color Urine Appearance (Clear) Urine pH (4.5-7.5) Ur Specific [place] (1.000-1.030) Urine Protein (Negative) Urine Glucose (UA) (Negative) Urine Ketones (Negative) Urine Blood (Negative) Urine Nitrite (Negative) Urine Bilirubin (Negative) Urine Urobilinogen (Negative) Ur Leukocyte Esterase (Negative) Urine WBC (Auto) (0-5) /hpf Urine RBC (Auto) (0-4) /hpf U Hyaline Cast (Auto) (0-5) /lpf U Epithel Cells (Auto) (0-5) /lpf Urine Bacteria (Auto) (Negative) Nasal Screen MRSA (PCR) (Negative) Blood Type Blood Type Recheck A Negative Antibody Screen Crossmatch 08/26/18 08/26/18 08/26/18 Range/Units 06:12 03:11 02:07 WBC (4.8-10.8) K/uL RBC (4.2-5.4) M/uL Hgb 6.2 L* (12.0-16.0) g/dL Hct 19.0 L* (37-47) % MCV (80-100) fL MCH (25-34) pg MCHC (32-36) g/dL RDW Std Deviation (36.4-46.3) fL RDW Coeff of Lyssa (11.5-14.5) % Plt Count (130-400) K/uL MPV (7.4-10.4) fL Immature Gran % (Auto) % Neut % (Auto) % Lymph % (Auto) % [place] % (Auto) % Eos % (Auto) % Baso % (Auto) % Immature Gran # (Auto) (0.00-0.02) K/uL Neut # (Auto) (1.4-6.5) K/uL Lymph # (Auto) (1.2-3.4) K/uL [place] # (Auto) (0.11-0.59) K/uL Eos # (Auto) (0-0.5) K/uL Baso # (Auto) (0-0.2) K/uL PT (9.0-12.0) Seconds INR (0.9-1.1) APTT (21.0-31.0) Seconds PTT Ratio Sample Site L Radial L Radial POC pH 7.30 L 7.18 L* (7.35-7.45) POC pCO2 41 53 H (35-46) mmHg POC pO2 89 87 (80-95) mmHg POC HCO3 20 20 (19-24) curtis/L POC Total CO2 21 L 22 L (24-31) mEq/l POC Base Excess -6.0 -9.0 (-9-1.8) curtis/L POC ABG O2 Sat 96.0 H 94.0 (90-95) % Gt Test Pass Pass O2 Delivery Device Other Other Sodium (136-145) mmol/L Potassium (3.5-5.1) mmol/L Chloride (98-107) mmol/L Carbon Dioxide (21-32) mmol/L Anion Gap (3-11) BUN (7-18) mg/dl Creatinine (0.6-1.2) mg/dl Est Cr Clr Drug Dosing Est GFR ( Amer) Est GFR (Non-Af Amer) BUN/Creatinine Ratio (10-20) Glucose (70-99) mg/dl POC Glucose (70-99) Estimat Average Glucose mg/dl Hemoglobin A1c (4.5-5.6) % Lactate (0.4-2.0) mmol/L Calcium (8.5-10.1) mg/dl Magnesium (1.8-2.4) mg/dl Total Bilirubin (0.2-1) mg/dl AST (15-37) U/L ALT (12-78) U/L Alkaline Phosphatase (45-117) U/L Troponin I (0-0.045) ng/ml NT-Pro-B Natriuret Pep (0-900) pg/ml Total Protein (6.4-8.2) gm/dl Albumin (3.4-5.0) gm/dl Globulin (2.5-4.0) gm/dl Albumin/Globulin Ratio (0.9-2) Lipase (73-393) U/L TSH (0.300-4.500) uIu/ml Urine Color Urine Appearance (Clear) Urine pH (4.5-7.5) Ur Specific [place] (1.000-1.030) Urine Protein (Negative) Urine Glucose (UA) (Negative) Urine Ketones (Negative) Urine Blood (Negative) Urine Nitrite (Negative) Urine Bilirubin (Negative) Urine Urobilinogen (Negative) Ur Leukocyte Esterase (Negative) Urine WBC (Auto) (0-5) /hpf Urine RBC (Auto) (0-4) /hpf U Hyaline Cast (Auto) (0-5) /lpf U Epithel Cells (Auto) (0-5) /lpf Urine Bacteria (Auto) (Negative) Nasal Screen MRSA (PCR) (Negative) Blood Type Blood Type Recheck Antibody Screen Crossmatch 04/08/26/18 08/26/18 Range/Units 01:53 01:53 01:53 WBC 14.07 H (4.8-10.8) K/uL RBC 2.84 L (4.2-5.4) M/uL Hgb 8.5 L (12.0-16.0) g/dL Hct 26.4 L (37-47) % MCV 93.0 (80-100) fL MCH 29.9 (25-34) pg MCHC 32.2 (32-36) g/dL RDW Std Deviation 54.1 H (36.4-46.3) fL RDW Coeff of Lyssa 15.9 H (11.5-14.5) % Plt Count 321 (130-400) K/uL MPV 9.0 (7.4-10.4) fL Immature Gran % (Auto) 0.2 % Neut % (Auto) 92.3 % Lymph % (Auto) 2.3 % [place] % (Auto) 5.1 % Eos % (Auto) 0.0 % Baso % (Auto) 0.1 % Immature Gran # (Auto) 0.03 H (0.00-0.02) K/uL Neut # (Auto) 12.99 H (1.4-6.5) K/uL Lymph # (Auto) 0.32 L (1.2-3.4) K/uL [place] # (Auto) 0.72 H (0.11-0.59) K/uL Eos # (Auto) 0.00 (0-0.5) K/uL Baso # (Auto) 0.01 (0-0.2) K/uL PT (9.0-12.0) Seconds INR (0.9-1.1) APTT (21.0-31.0) Seconds PTT Ratio Sample Site POC pH (7.35-7.45) POC pCO2 (35-46) mmHg POC pO2 (80-95) mmHg POC HCO3 (19-24) curtis/L POC Total CO2 (24-31) mEq/l POC Base Excess (-9-1.8) curtis/L POC ABG O2 Sat (90-95) % Gt Test O2 Delivery Device Sodium 136 (136-145) mmol/L Potassium 4.1 (3.5-5.1) mmol/L Chloride 106 (98-107) mmol/L Carbon Dioxide 25 (21-32) mmol/L Anion Gap 5.0 (3-11) BUN 16 (7-18) mg/dl Creatinine 1.01 (0.6-1.2) mg/dl Est Cr Clr Drug Dosing 43.5 Est GFR ( Amer) 65.8 Est GFR (Non-Af Amer) 56.8 BUN/Creatinine Ratio 16.2 (10-20) Glucose 160 H (70-99) mg/dl POC Glucose (70-99) Estimat Average Glucose mg/dl Hemoglobin A1c (4.5-5.6) % Lactate 2.6 H* (0.4-2.0) mmol/L Calcium 7.2 L D (8.5-10.1) mg/dl Magnesium 1.6 L (1.8-2.4) mg/dl Total Bilirubin (0.2-1) mg/dl AST (15-37) U/L ALT (12-78) U/L Alkaline Phosphatase (45-117) U/L Troponin I (0-0.045) ng/ml NT-Pro-B Natriuret Pep (0-900) pg/ml Total Protein (6.4-8.2) gm/dl Albumin 3.1 L (3.4-5.0) gm/dl Globulin (2.5-4.0) gm/dl Albumin/Globulin Ratio (0.9-2) Lipase (73-393) U/L TSH 0.681 (0.300-4.500) uIu/ml Urine Color Urine Appearance (Clear) Urine pH (4.5-7.5) Ur Specific [place] (1.000-1.030) Urine Protein (Negative) Urine Glucose (UA) (Negative) Urine Ketones (Negative) Urine Blood (Negative) Urine Nitrite (Negative) Urine Bilirubin (Negative) Urine Urobilinogen (Negative) Ur Leukocyte Esterase (Negative) Urine WBC (Auto) (0-5) /hpf Urine RBC (Auto) (0-4) /hpf U Hyaline Cast (Auto) (0-5) /lpf U Epithel Cells (Auto) (0-5) /lpf Urine Bacteria (Auto) (Negative) Nasal Screen MRSA (PCR) (Negative) Blood Type Blood Type Recheck Antibody Screen Crossmatch 08/26/18 08/25/18 08/25/18 Range/Units 00:30 20:53 20:35 WBC (4.8-10.8) K/uL RBC (4.2-5.4) M/uL Hgb (12.0-16.0) g/dL Hct (37-47) % MCV (80-100) fL MCH (25-34) pg MCHC (32-36) g/dL RDW Std Deviation (36.4-46.3) fL RDW Coeff of Lyssa (11.5-14.5) % Plt Count (130-400) K/uL MPV (7.4-10.4) fL Immature Gran % (Auto) % Neut % (Auto) % Lymph % (Auto) % [place] % (Auto) % Eos % (Auto) % Baso % (Auto) % Immature Gran # (Auto) (0.00-0.02) K/uL Neut # (Auto) (1.4-6.5) K/uL Lymph # (Auto) (1.2-3.4) K/uL [place] # (Auto) (0.11-0.59) K/uL Eos # (Auto) (0-0.5) K/uL Baso # (Auto) (0-0.2) K/uL PT 12.6 H (9.0-12.0) Seconds INR 1.2 H (0.9-1.1) APTT 26.2 (21.0-31.0) Seconds PTT Ratio 1.0 Sample Site POC pH (7.35-7.45) POC pCO2 (35-46) mmHg POC pO2 (80-95) mmHg POC HCO3 (19-24) curtis/L POC Total CO2 (24-31) mEq/l POC Base Excess (-9-1.8) curtis/L POC ABG O2 Sat (90-95) % Gt Test O2 Delivery Device Sodium (136-145) mmol/L Potassium (3.5-5.1) mmol/L Chloride (98-107) mmol/L Carbon Dioxide (21-32) mmol/L Anion Gap (3-11) BUN (7-18) mg/dl Creatinine (0.6-1.2) mg/dl Est Cr Clr Drug Dosing Est GFR ( Amer) Est GFR (Non-Af Amer) BUN/Creatinine Ratio (10-20) Glucose (70-99) mg/dl POC Glucose 122 H (70-99) Estimat Average Glucose mg/dl Hemoglobin A1c (4.5-5.6) % Lactate 2.1 H* (0.4-2.0) mmol/L Calcium (8.5-10.1) mg/dl Magnesium (1.8-2.4) mg/dl Total Bilirubin (0.2-1) mg/dl AST (15-37) U/L ALT (12-78) U/L Alkaline Phosphatase (45-117) U/L Troponin I (0-0.045) ng/ml NT-Pro-B Natriuret Pep (0-900) pg/ml Total Protein (6.4-8.2) gm/dl Albumin (3.4-5.0) gm/dl Globulin (2.5-4.0) gm/dl Albumin/Globulin Ratio (0.9-2) Lipase (73-393) U/L TSH (0.300-4.500) uIu/ml Urine Color Urine Appearance (Clear) Urine pH (4.5-7.5) Ur Specific [place] (1.000-1.030) Urine Protein (Negative) Urine Glucose (UA) (Negative) Urine Ketones (Negative) Urine Blood (Negative) Urine Nitrite (Negative) Urine Bilirubin (Negative) Urine Urobilinogen (Negative) Ur Leukocyte Esterase (Negative) Urine WBC (Auto) (0-5) /hpf Urine RBC (Auto) (0-4) /hpf U Hyaline Cast (Auto) (0-5) /lpf U Epithel Cells (Auto) (0-5) /lpf Urine Bacteria (Auto) (Negative) Nasal Screen MRSA (PCR) (Negative) Blood Type Blood Type Recheck Antibody Screen Crossmatch 08/25/18 08/25/18 08/25/18 Range/Units 20:35 17:26 17:25 WBC (4.8-10.8) K/uL RBC (4.2-5.4) M/uL Hgb (12.0-16.0) g/dL Hct (37-47) % MCV (80-100) fL MCH (25-34) pg MCHC (32-36) g/dL RDW Std Deviation (36.4-46.3) fL RDW Coeff of Lyssa (11.5-14.5) % Plt Count (130-400) K/uL MPV (7.4-10.4) fL Immature Gran % (Auto) % Neut % (Auto) % Lymph % (Auto) % [place] % (Auto) % Eos % (Auto) % Baso % (Auto) % Immature Gran # (Auto) (0.00-0.02) K/uL Neut # (Auto) (1.4-6.5) K/uL Lymph # (Auto) (1.2-3.4) K/uL [place] # (Auto) (0.11-0.59) K/uL Eos # (Auto) (0-0.5) K/uL Baso # (Auto) (0-0.2) K/uL PT (9.0-12.0) Seconds INR (0.9-1.1) APTT (21.0-31.0) Seconds PTT Ratio Sample Site POC pH (7.35-7.45) POC pCO2 (35-46) mmHg POC pO2 (80-95) mmHg POC HCO3 (19-24) curtis/L POC Total CO2 (24-31) mEq/l POC Base Excess (-9-1.8) curtis/L POC ABG O2 Sat (90-95) % Gt Test O2 Delivery Device Sodium (136-145) mmol/L Potassium (3.5-5.1) mmol/L Chloride (98-107) mmol/L Carbon Dioxide (21-32) mmol/L Anion Gap (3-11) BUN (7-18) mg/dl Creatinine (0.6-1.2) mg/dl Est Cr Clr Drug Dosing Est GFR ( Amer) Est GFR (Non-Af Amer) BUN/Creatinine Ratio (10-20) Glucose (70-99) mg/dl POC Glucose (70-99) Estimat Average Glucose 123 mg/dl Hemoglobin A1c 5.9 H (4.5-5.6) % Lactate (0.4-2.0) mmol/L Calcium (8.5-10.1) mg/dl Magnesium (1.8-2.4) mg/dl Total Bilirubin (0.2-1) mg/dl AST (15-37) U/L ALT (12-78) U/L Alkaline Phosphatase (45-117) U/L Troponin I (0-0.045) ng/ml NT-Pro-B Natriuret Pep (0-900) pg/ml Total Protein (6.4-8.2) gm/dl Albumin (3.4-5.0) gm/dl Globulin (2.5-4.0) gm/dl Albumin/Globulin Ratio (0.9-2) Lipase (73-393) U/L TSH (0.300-4.500) uIu/ml Urine Color Yellow Urine Appearance Clear (Clear) Urine pH 5.5 (4.5-7.5) Ur Specific [place] 1.020 (1.000-1.030) Urine Protein 2+ H (Negative) Urine Glucose (UA) Negative (Negative) Urine Ketones Trace H (Negative) Urine Blood Negative (Negative) Urine Nitrite Negative (Negative) Urine Bilirubin Negative (Negative) Urine Urobilinogen Negative (Negative) Ur Leukocyte Esterase Negative (Negative) Urine WBC (Auto) 1-5 (0-5) /hpf Urine RBC (Auto) 0-4 (0-4) /hpf U Hyaline Cast (Auto) 0 (0-5) /lpf U Epithel Cells (Auto) 10-20 H (0-5) /lpf Urine Bacteria (Auto) Negative (Negative) Nasal Screen MRSA (PCR) (Negative) Blood Type A Negative Blood Type Recheck Antibody Screen NEGATIVE Crossmatch See Detail 08/25/18 08/25/18 08/25/18 Range/Units 17:25 17:25 01:00 WBC 12.54 H (4.8-10.8) K/uL RBC 3.88 L (4.2-5.4) M/uL Hgb 11.4 L (12.0-16.0) g/dL Hct 35.0 L (37-47) % MCV 90.2 (80-100) fL MCH 29.4 (25-34) pg MCHC 32.6 (32-36) g/dL RDW Std Deviation 52.1 H (36.4-46.3) fL RDW Coeff of Lyssa 15.8 H (11.5-14.5) % Plt Count 360 (130-400) K/uL MPV 9.3 (7.4-10.4) fL Immature Gran % (Auto) 0.3 % Neut % (Auto) 90.4 % Lymph % (Auto) 3.6 % [place] % (Auto) 5.6 % Eos % (Auto) 0.0 % Baso % (Auto) 0.1 % Immature Gran # (Auto) 0.04 H (0.00-0.02) K/uL Neut # (Auto) 11.34 H (1.4-6.5) K/uL Lymph # (Auto) 0.45 L (1.2-3.4) K/uL [place] # (Auto) 0.70 H (0.11-0.59) K/uL Eos # (Auto) 0.00 (0-0.5) K/uL Baso # (Auto) 0.01 (0-0.2) K/uL PT (9.0-12.0) Seconds INR (0.9-1.1) APTT (21.0-31.0) Seconds PTT Ratio Sample Site POC pH (7.35-7.45) POC pCO2 (35-46) mmHg POC pO2 (80-95) mmHg POC HCO3 (19-24) curtis/L POC Total CO2 (24-31) mEq/l POC Base Excess (-9-1.8) curtis/L POC ABG O2 Sat (90-95) % Gt Test O2 Delivery Device Sodium 134 L (136-145) mmol/L Potassium 4.0 (3.5-5.1) mmol/L Chloride 101 (98-107) mmol/L Carbon Dioxide 22 (21-32) mmol/L Anion Gap 12.0 H (3-11) BUN 19 H (7-18) mg/dl Creatinine 1.05 (0.6-1.2) mg/dl Est Cr Clr Drug Dosing Not Reportable Est GFR ( Amer) 62.8 Est GFR (Non-Af Amer) 54.1 BUN/Creatinine Ratio 17.9 (10-20) Glucose 125 H (70-99) mg/dl POC Glucose (70-99) Estimat Average Glucose mg/dl Hemoglobin A1c (4.5-5.6) % Lactate (0.4-2.0) mmol/L Calcium 9.1 (8.5-10.1) mg/dl Magnesium 2.0 (1.8-2.4) mg/dl Total Bilirubin 1.2 H (0.2-1) mg/dl AST 72 H (15-37) U/L ALT 64 (12-78) U/L Alkaline Phosphatase 101 (45-117) U/L Troponin I < 0.015 (0-0.045) ng/ml NT-Pro-B Natriuret Pep 19425 H (0-900) pg/ml Total Protein 7.8 (6.4-8.2) gm/dl Albumin 3.7 (3.4-5.0) gm/dl Globulin 4.1 H (2.5-4.0) gm/dl Albumin/Globulin Ratio 0.9 (0.9-2) Lipase 227 (73-393) U/L TSH 0.147 L (0.300-4.500) uIu/ml Urine Color Urine Appearance (Clear) Urine pH (4.5-7.5) Ur Specific [place] (1.000-1.030) Urine Protein (Negative) Urine Glucose (UA) (Negative) Urine Ketones (Negative) Urine Blood (Negative) Urine Nitrite (Negative) Urine Bilirubin (Negative) Urine Urobilinogen (Negative) Ur Leukocyte Esterase (Negative) Urine WBC (Auto) (0-5) /hpf Urine RBC (Auto) (0-4) /hpf U Hyaline Cast (Auto) (0-5) /lpf U Epithel Cells (Auto) (0-5) /lpf Urine Bacteria (Auto) (Negative) Nasal Screen MRSA (PCR) Negative (Negative) Blood Type Blood Type Recheck Antibody Screen Crossmatch Medications Administered Current Inpatient Medications Fentanyl Citrate (Fentanyl Citrate) 12.5 mcg IV Q1H PRN PRN Reason: Pain Stop: 09/09/18 02:18 Last Admin: 08/26/18 07:37 Dose: 12.5 mcg Documented by: Lactated Ringer's (Lr) 1,000 mls @ 50 mls/hr IV .Q20H [facility] Stop: 09/24/18 21:14 Last Infusion: 08/26/18 08:04 Dose: 0 mls/hr Documented by: Promethazine HCl 12.5 mg/ (Sodium Chloride) 50.5 mls @ 202 mls/hr IV Q6H PRN PRN Reason: Nausea And Vomiting Stop: 09/24/18 21:05 Acetaminophen (Ofirmev) 65 mls @ 200 mls/hr IV Q6H PRN PRN Reason: Fever Stop: 09/24/18 21:14 Last Infusion: 08/26/18 09:07 Dose: Infused Documented by: Piperacillin Sod/Tazobactam (Sod 3.375 gm/ Dextrose) 115 mls @ 28.75 mls/hr IV Q8H [facility]; Protocol Stop: 09/05/18 01:59 Last Infusion: 08/26/18 11:14 Dose: Infused Documented by: Pantoprazole Sodium 40 mg/ (Syringe) 10 mls @ 5 mls/min IV BID@0900,2100 [facility] Stop: 09/25/18 08:59 Last Admin: 08/26/18 07:31 Dose: 5 mls/min Documented by: Phenylephrine HCl 20 mg/ (Dextrose) 502 mls @ 34.7 mls/hr IV .[id number] [facility]; Protocol Stop: 09/25/18 02:31 Last Admin: 08/26/18 09:03 Dose: Not Given Documented by: Sodium Chloride (Nss) 250 mls @ 15 mls/hr IV .[id number] PRN PRN Reason: For Transfusion Stop: 09/25/18 06:45 Ipratropium [place] (Atrovent 0.02% 0.5mg/2.5ml) 0.5 mg INH Q6R [facility] Stop: 09/25/18 01:59 Last Admin: 08/26/18 07:13 Dose: 0.5 mg Documented by: Levalbuterol HCl (Xopenex 1.25mg/0.5ml Neb) 1.25 mg INH Q6R [facility] Stop: 09/25/18 01:59 Last Admin: 08/26/18 07:13 Dose: 1.25 mg Documented by: Miscellaneous ([facility] Protocol For Hyperglycemia) 1 ea N/A PRN PRN; Protocol PRN Reason: Hyperglycemia Protocol Stop: 08/27/18 21:05 Miscellaneous Information (Consult) 1 ea N/A UD PRN PRN Reason: Consult Stop: 09/24/18 19:37 Olanzapine (Zyprexa) 2.5 mg IM Q4H PRN PRN Reason: Anxiety/Agitation Stop: 09/25/18 02:38 Timolol Maleate (Timoptic 0.25% Oph) 1 drops OPL QAM [facility] Stop: 09/25/18 08:59 Last Admin: 08/26/18 07:31 Dose: 1 drops Documented by: Resident Activity Tracking Resident Involvement: Resident Care Provided Care Provided: Adult Hospital Medicine
[2018-08-26 13:16] LABS: Hematocrit (blood only) 24.4 % (37-47); Hemoglobin 8.3 g/dL (12.0-16.0); Mean Corpuscular Volume 88.4 fL (80-100); RDW Coefficient of Variation 14.9 % (11.5-14.5); Red Blood Count 2.76 M/uL (4.2-5.4); White Blood Count 7.85 K/uL (4.8-10.8)
[2018-08-26 13:18] LABS: BUN Creatinine Ratio 13.1 (10-20); Calcium 7.6 mg/dl (8.5-10.1); Creatinine Clr Calc Pharmacy 37.5 ml/min; Est GFR (African American) 47.2; Est GFR (Non-African American) 40.7; Magnesium 2.1 mg/dl (1.8-2.4); Potassium 4.5 mmol/L (3.5-5.1)
[2018-08-26 13:19] LABS: Phosphorus 3.9 mg/dl (2.5-4.9)
[2018-08-26 13:23] LABS: Echinocytes 1+; Immature Granulocytes # (auto) 0.02 K/uL (0.00-0.02); Immature Granulocytes % (auto) 0.3 %; Lymphocytes # (auto) 0.47 K/uL (1.2-3.4); Mean Platelet Volume 8.4 fL (7.4-10.4); Monocytes # (auto) 0.71 K/uL (0.11-0.59); Neutrophils # (auto) 6.65 K/uL (1.4-6.5); Neutrophils % (auto) 84.7 %; Platelet Count 158 K/uL (130-400); Platelet Estimate Normal (Normal)
[2018-08-26] MEDS ORDERED: GLUCAGON FOR INJ 1 MG VIAL SQ PRN (13:30)
[2018-08-26] MEDS ORDERED: DEXTROSE 50% 50 ML SYRINGE IV PRN (13:30)
[2018-08-26] MEDS ORDERED: GLUCOSE 40% GEL 15 GM TUBE PO PRN (13:30)
[2018-08-26] MEDS ORDERED: CARBOHYDRATES FOR HYPOGLYCEMIA PO PRN (13:30)
[2018-08-26] MEDS ORDERED: GLUCOSE 10 TABS/TUBE PO PRN (13:30)
--- NOTE | 2018-08-26 14:36 | Hospitalist Progress Note ---
Date of Service August 26, 2018 Assessment & Plan (1) Hypotension: Perforated gastric ulcer H/O GERD as per records--patient H/O PUD Severe sepsis Possible adrenal insufficiency given recent prednisone course S/P Laparotomy, Oversew of perforated gastric ulcer, Jonn patch, Abdominal washout POD #1 NPO for now Continue IV Zosyn S/P 2 units PRCBs Received sol of Decadron for possible adrenal insufficiency Continue Supportive Care Appreciate Batch Still Operator/Surgery Input Continue PPI Hold Aspirin, Naproxen On pressors--wean off as able Blood Cultures: Pending Hypoxemic respiratory failure, possibly chronic Likely from COPD given emphysematous changes on imaging Past tobacco abuse Continue Nebs Supplemental Oxygen as needed Pericardial Effusion ECHO: EF: 65-70%; Moderate Pericardial effusion without evidence of Tamponade Monitor Volume status closely Consider Cardiology eval if necessary PVD S/P surgery H/O CVA/cerebral aneurysm S/P Left Carotid endarterectomy Aspirin, Statin on hold Chronic anemia Hb dropped to 6.2 Estimated Blood Loss after surgery: 25ml Hb drop--Partly dilutional due to IV Fluids S/P 2 units PRBCs ? Hemorrhagic pericardial effusion Monitor Hb closely Steroid-induced hyperglycemia A1C: 5.9 Continue ISS Monitor BGs DVT Px: SCDs Code Status Full code Subjective Patient is seen and examined at bedside Denies significant pain at surgical site this morning Reports SOB intermittently Getting PRBCs transfusion this morning Denies nausea, vomiting, dizziness Currently NPO No other complaints Review of Systems Review of Systems: All systems reviewed & are unremarkable except as noted in HPI & below Physical Exam Physical Exam: Physical Exam: Vitals signs as noted above General Appearance:Moderately built and nourished, no apparent distress Head: normocephalic, Atraumatic Eyes: normal inspection, EOMI Neck: supple, Trachea midline Respiratory/Chest: Normal breath sounds, CTA Cardiovascular: S1, S2, No murmur Abdomen/GI:Soft, Non tender, + Surgical site in dressing, Bowel sounds present Extremities/Musculoskelatal:normal inspection, no edema Neurologic/Psych:AAOX3, grossly no focal neurological deficits Skin: normal color, warm Results & Data Vital Signs (Past 12 Hours) Vital Signs Temp Pulse Pulse Resp BP Pulse Ox 08/26/18 14:11 102 H 18 99 08/26/18 12:15 36.7 C 92 H 17 101/73 100 08/26/18 11:21 86 17 100/67 100 08/26/18 11:01 96 H 20 126/69 100 08/26/18 10:52 90 18 100 08/26/18 10:46 36.7 C 96 H 23 96/64 L 100 08/26/18 10:32 90 21 100 08/26/18 10:31 36.5 C 88 16 92/55 L 100 08/26/18 10:15 36.5 C 90 17 110/69 95 08/26/18 10:06 36.6 C 90 17 99 08/26/18 10:00 36.7 C 88 22 105/55 L 100 08/26/18 09:27 98 08/26/18 09:16 36.7 C 103 H 24 113/67 93 08/26/18 09:01 93 H 22 123/73 100 08/26/18 09:00 36.7 C 92 H 19 123/73 98 08/26/18 08:45 97 H 19 134/72 100 08/26/18 08:30 36.7 C 96 H 17 125/73 100 08/26/18 08:15 96 H 14 129/79 95 08/26/18 08:01 36.6 C 102 H 19 112/58 L 99 08/26/18 07:52 36.6 C 101 H 17 103/70 100 08/26/18 07:13 95 H 18 99 08/26/18 06:16 98 H 23 126/89 100 08/26/18 06:03 95 H 28 H 142/85 H 99 08/26/18 05:01 95 H 29 H 70/45 L 100 08/26/18 04:50 98 H 24 79/59 L 94 08/26/18 04:35 97 H 25 H 78/59 L 99 08/26/18 04:20 36.4 C L 99 H 19 80/62 L 96 08/26/18 04:01 36.5 C 99 H 16 103/56 L 88 L 08/26/18 03:02 102 H 22 89/66 L 100 08/26/18 03:00 99 H 21 100 08/26/18 02:51 105 H 19 89/65 L 100 08/26/18 02:41 113 H 22 86/66 L 100 08/26/18 02:36 120 H 26 H 89/63 L 100 Laboratory Results Short CBC 08/25/18 08/26/18 08/26/18 Range/Units 17:25 01:53 06:12 WBC 12.54 H 14.07 H (4.8-10.8) K/uL Hgb 11.4 L 8.5 L 6.2 L* (12.0-16.0) g/dL Hct 35.0 L 26.4 L 19.0 L* (37-47) % Plt Count 360 321 (130-400) K/uL 08/26/18 Range/Units 12:52 WBC 7.85 (4.8-10.8) K/uL Hgb 8.3 L (12.0-16.0) g/dL Hct 24.4 L (37-47) % Plt Count 158 D (130-400) K/uL BMP 08/25/18 08/26/18 08/26/18 17:25 01:53 12:52 Sodium 134 L 136 131 L Potassium 4.0 4.1 4.5 Chloride 101 106 103 Carbon Dioxide 22 25 23 BUN 19 H 16 17 Creatinine 1.05 1.01 1.33 H D Glucose 125 H 160 H 159 H Calcium 9.1 7.2 L D 7.6 L Cardiac Enzymes 08/25/18 Range/Units 17:25 Troponin I < 0.015 (0-0.045) ng/ml Liver Function 08/25/18 08/26/18 Range/Units 17:25 01:53 Total Bilirubin 1.2 H (0.2-1) mg/dl AST 72 H (15-37) U/L ALT 64 (12-78) U/L Alkaline Phosphatase 101 (45-117) U/L Albumin 3.7 3.1 L (3.4-5.0) gm/dl Urine 08/25/18 Range/Units 17:26 Urine Color Yellow Urine Appearance Clear (Clear) Urine pH 5.5 (4.5-7.5) Ur Specific [place] 1.020 (1.000-1.030) Urine Protein 2+ H (Negative) Urine Glucose (UA) Negative (Negative)
[2018-08-26] MEDS ORDERED: LACTATED RINGER'S 1,000 ML IV ONE (15:36)
[2018-08-26] MEDS: INSULIN ASPART 100 UNITS/ML 3 ML PEN SC SCH (17:18)
[2018-08-26 20:10] LABS: Hematocrit (blood only) 22.7 % (37-47); Hemoglobin 8.1 g/dL (12.0-16.0)
--- OUTSIDE RECORDS SUMMARY | 2018-08-26 22:44 | External Medical Summary | Continuity of Care Document ---
:1950 Author Name Elmer Rogers Address Unavailable Unavailable , Care Team Providers Name Role Phone Saul GRADY Unavailable [email or web address] Unavailable Unavailable Problems Active medical history not documented Allergies and Adverse Reactions Allergy history not documented Medications Medications not documented Procedures Procedures not documented Immunizations Immunizations not documented Plan of Treatment Planned Observations Planned Goals not documented Results No Known Results Results not documented
--- OUTSIDE RECORDS SUMMARY | 2018-08-26 22:45 | External Medical Summary | Continuity of Care Document ---
:1950 Author Name Elmer Rogers Address Unavailable Unavailable , Care Team Providers Name Role Phone Saul GRADY Unavailable [email or web address] PCP, UNKNOWN Unavailable Unavailable Problems Active medical history not documented Allergies and Adverse Reactions Allergy history not documented Medications Medications not documented Procedures Procedures not documented Immunizations Immunizations not documented Plan of Treatment Planned Observations Planned Goals not documented Results No Known Results Results not documented
[2018-08-27] MEDS: INSULIN ASPART 100 UNITS/ML 3 ML PEN SC SCH ×4 (00:56→17:48)
[2018-08-27] MEDS: IPRATROPIUM BROMIDE NEB SOLN 0.02% 2.5 ML VIAL INH SCH ×4 (01:53→19:34)
[2018-08-27] MEDS: LEVALBUTEROL 1.25MG/0.5ML NEB INH SCH ×4 (01:53→19:34)
[2018-08-27] MEDS: ACETAMINOPHEN 65 ML IV PRN ×3 (02:02→17:32)
[2018-08-27] MEDS: PIPERACILLIN/TAZOBACTAM 3.375 GM in DEXTROSE 5% 100 ML IV SCH ×3 (02:03→17:32)
[2018-08-27 04:56] LABS: BUN Creatinine Ratio 11.8 (10-20); Creatinine Clr Calc Pharmacy 31.5 ml/min; Est GFR (African American) 38.3
[2018-08-27 05:05] LABS: Hematocrit (blood only) 20.6 % (37-47); Hemoglobin 7.2 g/dL (12.0-16.0); Mean Corpuscular Volume 87.3 fL (80-100); Mean Platelet Volume 9.4 fL (7.4-10.4); Platelet Count 156 K/uL (130-400); RDW Coefficient of Variation 15.3 % (11.5-14.5); RDW Standard Deviation 48.7 fL (36.4-46.3); Red Blood Count 2.36 M/uL (4.2-5.4); White Blood Count 10.71 K/uL (4.8-10.8)
[2018-08-27 05:11] LABS: Echinocytes 1+; Hypochromasia Present; Immature Granulocytes # (auto) 0.02 K/uL (0.00-0.02); Immature Granulocytes % (auto) 0.2 %; Lymphocytes # (auto) 0.92 K/uL (1.2-3.4); Lymphocytes % (auto) 8.6 %; Monocytes % (auto) 11.2 %; Neutrophils # (auto) 8.57 K/uL (1.4-6.5)
[2018-08-27] MEDS ORDERED: SODIUM CHLORIDE 0.9% 250 ML IV PRN (05:21)
[2018-08-27] MEDS: PHENYLEPHRINE HCL 20 MG in DEXTROSE 5% 500 ML IV SCH (06:13)
[2018-08-27] MEDS: fentaNYL citrate 100 MCG/2 ML VIAL IV PRN ×6 (08:07→19:54)
--- NOTE | 2018-08-27 08:21 | Surgery Progress Note ---
Date of Service August 27, 2018 Assessment & Plan (1) Acute gastric ulcer with perforation: POD 1 repair gastric ulcer 3rd unit infusing, 4th ordered add carafate WBC 10, Cr up slightly to 1.5 As above. We will add Carafate today. Keep n.p.o. otherwise. We will probably plan an upper GI for or Sunday. Some gentle rehydration. Unclear to me why there is so much MERE output. Suspect muscle bleeding as we had almost 0 intraoperative bleeding. Patient with minimal abdominal pain alert and oriented. (2) Anemia: Subjective some LUQ pain, concerned about SBP in the 170s Physical Exam Gastrointestinal (Abdomen): Inspection/Auscultation: + abdominal surgical incision (dressing dry) and + abdominal surgical drain present (190 cc bloody); abdomen not distended Percussion/Palpation: abdomen soft Results & Data Vital Signs (Past 12 Hours) Vital Signs Temp Pulse Pulse Resp BP Pulse Ox 08/27/18 07:00 36.8 C 124 H 18 153/80 H 96 08/27/18 06:30 36.7 C 112 H 18 140/67 94 08/27/18 06:15 36.8 C 111 H 18 113/56 L 92 08/27/18 06:00 36.7 C 114 H 18 129/60 93 08/27/18 01:53 113 H 94 08/27/18 00:00 107 H 08/26/18 22:01 109 H 19 89/57 L 96 08/26/18 21:01 111 H 18 107/56 L 95
[2018-08-27] MEDS: PANTOprazole 40 MG in SYRINGE 0 ML IV SCH ×2 (08:52→21:17)
[2018-08-27] MEDS: TIMOLOL MALEATE 0.25% OP SOLN 5 ML BTL OPL SCH (08:52)
[2018-08-27] MEDS: SUCRALFATE 1 GM/10 ML UDC PO SCH ×4 (09:22→21:17)
--- NOTE | 2018-08-27 09:48 | Critical Care Progress Note ---
Date of Service August 27, 2018 Assessment & Plan (1) Acute gastric ulcer with perforation: Reason Critically Ill: 68-year-old female here for shortness of breath, hypotension, and epigastric pain 2/2 perforated gastric ulcer s/p laparoscopy converted to laparotomy with gastric oversew and patch repair 08/25/2018. . Past medical history significant for CHFpEF, HTN, PVD, CVA, HLD, paraproteinemia, tobacco abuse, and chronic anemia. She is admitted for care in the ICU for severe anemia and continued bleeding into her MERE drain. Neuro CAM ICU: NEGATIVE Cardiac - Congestive Heart Failure with Preserved EF: - BNP 11.9K on admit with pericardial effusion, pEF, concentric LVH noted on e cho. - Unclear etiology of pericardial effusion, may have been contributing to her shortness of breath in the last month although there are no signs of tamponade. Concern for gastric oncologic origin, would benefit from further workup once clinically stable. - Clinically appears hypovolemic at this time, but follow carefully for fluid overload and risk for pulmonary edema with transfusions and IVF. Hyperlipidemia: Held Atorvastatin 80mg PO qHS in setting of NPO 2/2 gastric surgery Respiratory - Acute Respiratory Failure with Shortness of breath 2/2 acute on chronic anemia with possible cardiogenic component. - Hx COPD: Albuterol neb Q6H PRN, ipratropium .5mg INH Q6H, Albuterol INH Q6H PRN, - SpO2 100% on Oxymask. - Titrate O2 to goal SpO2>94%. - Anemia treatment as below GI - Perforated Gastric Ulcer s/p Gastric Oversew and Patch Repair. She is being followed by Dr. Hughes and the surgical service. Ulcer may have been chronic given history of anemia, unclear cause at this time. No excess NSAID use, does have a history of prednisone use. No H. pylori sampling taken, consider evaluation once stable. - NPO s/p gastric repair. - Protonix 40mg IV BID. Anticipate ~6-8 week total course of PPI therapy. - Pip/Yuri Q8H. Assuming good source control and improving clinical course after surgery would continue for 7 days. - Pain control with Fentanyl 12.5mcg Q1H PRN. Hydromorphone discontinued due to induction of hypotension. Ofirmev IV Q6H PRN. - Surgery following. Continued bleeding possibly due to muscular wall bleed, expect it to decrease and stop spontaneously. Drain output more serous today. RENAL/LYTES - - Electrolytes 133/4/105/23 with Cr 1.5 from 1.3. - Acute kidney risk/injury 2/2 ATN +/- prerenal. Cr increase of 50% with decreased UOP. Decreased UOP is in setting of bleeding and possibly hypovolemia. Continue to trend Cr, support with fluids and transfusion as below. - - Decreased UOP (650cc, .39cc/kg/hr) in last 24 hours. Concern for hypovolemia is setting of continued MERE losses. - Continue to follow. Is completing pRBC transfusion ordered early this morning. LR IVFM LR 50cc/hr after completion. ENDO - - Glucose adequately controlled, A1C = 5.9%. - No pharmacologic glycemic control at this time. HEME - - Hgb decreased from 7.2, pending completion of pRBC x2 unit. Would follow and maintain transfusion threshold of 7g/dL with 1 unit transfusion at a time if needed unless clinically destable or critically low. - CBC daily with H&H Q6H. ID - See GI. Afebrile at this time. Leukocytosis improved to 10.7 today. Monitor fever curve. INTEGUMENTARY - - No bruising/lesions. - Abdominal surgical site appropriately tender. Dressing C/D/I without signs of dehiscence or infection. LINES/IV ACCESS - PIVs intact. DVT PROPHYLAXIS - - Held in setting of acute GIB. Thank you for allowing us to be part of this patient's care. Please refer to Dr. Vaughn's documentation for any further recommendations. Supervising Physician Co-Signing Physician Notes Pulmonary/Critical Care attendin68 y/o female presented with abdominal pain and found to have perforated gastric ulcer now s/p OR repair Constitutional: Comfortable NAD HEENT: normocephalic atraumatic. CV: tachycardia nl s1,s2 no murmurs rubs or gallops Lungs: clear to auscultation bilaterally. no accessory muscle use Abd: soft + mild tenderness +distended. dressing CDI. MERE drain with serosanguineous drainage Ext: no edema. no cyanosis, no clubbing Skin: warm dry Neuro: alert and oriented. moving all extremities Psych: normal mood and affect Neuro- awake alert CV- septic shock. remains off vasopressors. echo with pericardial effusion without evidence of tamponade. will need further workup once more stable and possibly drainage for diagnosis. this may be why she has had shortness of breath for the past month Pulmonary- sat well on NC. sob this morning likely related to blood transfusions ID- septic shock with abdominal source. follow cultures. continue piperacillin-tazobactam Renal- cr worse. UOP poor was concerned about volume but more sob with blood. may have ATN from hypotension GI- NPO for now. for endoscopy or sunday per surgery Heme- anemia due to blood loss. transfuse for hgb >7 Endocrine- blood sugars controlled except one high Dispo- continue ICU care care for hemodynamic support I have personally spent 45 minutes of critical care time in the direct management of this patient. This is a life/limb threatening event. This includes time spent evaluating patient, direct bedside care, chart review, placing orders, interpretation of diagnostic studies, discussion with consultants, patient, and/or family members regarding treatment decisions, as well as other required patient management activities. This time is exclusive of all separately billable procedures, and teaching time and separate from and in addition to any other critical care service time. Subjective Rowena reports she feels her night went OK. SHe is having some L rib pain, 6/10, sharp pain slightly worse with inspiration. She feels tired with mild shortness of breath this morning. Denies chest pain/chest pressure/palpitations. She continues to have bloody drainage from her MERE drain. Denies nausea, abdomina l pain, vomiting, rash. No bowel movement in several days. No questions or concerns at time of visit. Has a unit of blood running at time of visit. Review of Systems Review of Systems: Constitutional: Denies fever, chills, weight change. Endorses fatigue Eyes: Denies double vision, vision change ENT: Denies ear pain, sore throat, sinus pain Cardiovascular: Denies chest pain, chest pressure, palpitations, extremity swelling Respiratory: Endorses shortness of breath. Denies cough, sputum production. Mild difficulty breathing 2/2 rib pain. Gastrointestinal: Denies abdominal pain, nausea, vomiting, diarrhea. +Constipation Genitourinary: Denies pain with urination, sanz present Musculoskeletal: Endorses fatigue/weakness, denies muscle aches/pain, joint aches/pain Integumentary:Denies rash, lesions, bruising Neurological: Denies headache, numbness, tingling, focal weakness Physical Exam Physical Exam: General: A&Ox3. NAD. Cooperative. HEENT: Atraumatic, normocephalic. Pulm: Diminished air movement, but grossly CTAB A&P. -wheezes, -rales, -rhonchi. Symmetrical chest rise. No increase work of breathing. No respiratory distress. Cardiac: RRR, -mrg. Radial pulses intact and symmetrical. Abdominal: Surgical dressing C/D/I. Tender at surgical site, otherwise nontender, nondistended, soft. BS present. MERE drain present, ~40cc of serosanguinous fluid. Results & Data Vital Signs (Past 12 Hours) Vital Signs Temp Pulse Pulse Resp BP Pulse Ox 08/27/18 08:42 36.7 C 124 H 22 111/82 96 08/27/18 08:39 36.7 C 130 H 20 111/82 96 08/27/18 07:00 36.8 C 124 H 18 153/80 H 96 08/27/18 06:30 36.7 C 112 H 18 140/67 94 08/27/18 06:15 36.8 C 111 H 18 113/56 L 92 08/27/18 06:00 36.7 C 114 H 18 129/60 93 08/27/18 01:53 113 H 94 08/27/18 00:00 107 H 08/26/18 22:01 109 H 19 89/57 L 96 Laboratory Results 08/27/18 08/27/18 08/27/18 Range/Units 06:27 04:22 04:22 WBC 10.71 (4.8-10.8) K/uL RBC 2.36 L (4.2-5.4) M/uL Hgb 7.2 L (12.0-16.0) g/dL Hct 20.6 L* (37-47) % MCV 87.3 (80-100) fL MCH 30.5 (25-34) pg MCHC 35.0 (32-36) g/dL RDW Std Deviation 48.7 H (36.4-46.3) fL RDW Coeff of Lyssa 15.3 H (11.5-14.5) % Plt Count 156 (130-400) K/uL MPV 9.4 (7.4-10.4) fL Immature Gran % (Auto) 0.2 % Neut % (Auto) 80.0 % Lymph % (Auto) 8.6 % [place] % (Auto) 11.2 % Eos % (Auto) 0.0 % Baso % (Auto) 0.0 % Immature Gran # (Auto) 0.02 (0.00-0.02) K/uL Neut # (Auto) 8.57 H (1.4-6.5) K/uL Lymph # (Auto) 0.92 L (1.2-3.4) K/uL [place] # (Auto) 1.20 H (0.11-0.59) K/uL Eos # (Auto) 0.00 (0-0.5) K/uL Baso # (Auto) 0.00 (0-0.2) K/uL Platelet Estimate (Normal) Hypochromasia Present Echinocytes 1+ Sodium 133 L (136-145) mmol/L Potassium 4.0 (3.5-5.1) mmol/L Chloride 105 (98-107) mmol/L Carbon Dioxide 23 (21-32) mmol/L Anion Gap 5.0 (3-11) BUN 19 H (7-18) mg/dl Creatinine 1.58 H (0.6-1.2) mg/dl Est Cr Clr Drug Dosing 31.5 ml/min Est GFR ( Amer) 38.3 Est GFR (Non-Af Amer) 33.0 BUN/Creatinine Ratio 11.8 (10-20) Glucose 123 H (70-99) mg/dl POC Glucose 127 H (70-99) Lactate (0.4-2.0) mmol/L Calcium 8.0 L (8.5-10.1) mg/dl Phosphorus (2.5-4.9) mg/dl Magnesium 2.0 (1.8-2.4) mg/dl Blood Type Antibody Screen Crossmatch 08/27/18 08/26/18 08/26/18 Range/Units 00:24 19:54 17:06 WBC (4.8-10.8) K/uL RBC (4.2-5.4) M/uL Hgb 8.1 L (12.0-16.0) g/dL Hct 22.7 L (37-47) % MCV (80-100) fL MCH (25-34) pg MCHC (32-36) g/dL RDW Std Deviation (36.4-46.3) fL RDW Coeff of Lyssa (11.5-14.5) % Plt Count (130-400) K/uL MPV (7.4-10.4) fL Immature Gran % (Auto) % Neut % (Auto) % Lymph % (Auto) % [place] % (Auto) % Eos % (Auto) % Baso % (Auto) % Immature Gran # (Auto) (0.00-0.02) K/uL Neut # (Auto) (1.4-6.5) K/uL Lymph # (Auto) (1.2-3.4) K/uL [place] # (Auto) (0.11-0.59) K/uL Eos # (Auto) (0-0.5) K/uL Baso # (Auto) (0-0.2) K/uL Platelet Estimate (Normal) Hypochromasia Echinocytes Sodium (136-145) mmol/L Potassium (3.5-5.1) mmol/L Chloride (98-107) mmol/L Carbon Dioxide (21-32) mmol/L Anion Gap (3-11) BUN (7-18) mg/dl Creatinine (0.6-1.2) mg/dl Est Cr Clr Drug Dosing ml/min Est GFR ( Amer) Est GFR (Non-Af Amer) BUN/Creatinine Ratio (10-20) Glucose (70-99) mg/dl POC Glucose 124 H 124 H (70-99) Lactate (0.4-2.0) mmol/L Calcium (8.5-10.1) mg/dl Phosphorus (2.5-4.9) mg/dl Magnesium (1.8-2.4) mg/dl Blood Type Antibody Screen Crossmatch 08/26/18 08/26/18 08/26/18 Range/Units 12:52 12:52 12:52 WBC 7.85 (4.8-10.8) K/uL RBC 2.76 L (4.2-5.4) M/uL Hgb 8.3 L (12.0-16.0) g/dL Hct 24.4 L (37-47) % MCV 88.4 (80-100) fL MCH 30.1 (25-34) pg MCHC 34.0 (32-36) g/dL RDW Std Deviation 48.0 H (36.4-46.3) fL RDW Coeff of Lyssa 14.9 H (11.5-14.5) % Plt Count 158 D (130-400) K/uL MPV 8.4 (7.4-10.4) fL Immature Gran % (Auto) 0.3 % Neut % (Auto) 84.7 % Lymph % (Auto) 6.0 % [place] % (Auto) 9.0 % Eos % (Auto) 0.0 % Baso % (Auto) 0.0 % Immature Gran # (Auto) 0.02 (0.00-0.02) K/uL Neut # (Auto) 6.65 H (1.4-6.5) K/uL Lymph # (Auto) 0.47 L (1.2-3.4) K/uL [place] # (Auto) 0.71 H (0.11-0.59) K/uL Eos # (Auto) 0.00 (0-0.5) K/uL Baso # (Auto) 0.00 (0-0.2) K/uL Platelet Estimate Normal (Normal) Hypochromasia Echinocytes 1+ Sodium 131 L (136-145) mmol/L Potassium 4.5 (3.5-5.1) mmol/L Chloride 103 (98-107) mmol/L Carbon Dioxide 23 (21-32) mmol/L Anion Gap 5.0 (3-11) BUN 17 (7-18) mg/dl Creatinine 1.33 H D (0.6-1.2) mg/dl Est Cr Clr Drug Dosing 37.5 ml/min Est GFR ( Amer) 47.2 Est GFR (Non-Af Amer) 40.7 BUN/Creatinine Ratio 13.1 (10-20) Glucose 159 H (70-99) mg/dl POC Glucose (70-99) Lactate 2.4 H* (0.4-2.0) mmol/L Calcium 7.6 L (8.5-10.1) mg/dl Phosphorus 3.9 (2.5-4.9) mg/dl Magnesium 2.1 (1.8-2.4) mg/dl Blood Type Antibody Screen Crossmatch 08/26/18 08/25/18 Range/Units 12:14 20:35 WBC (4.8-10.8) K/uL RBC (4.2-5.4) M/uL Hgb (12.0-16.0) g/dL Hct (37-47) % MCV (80-100) fL MCH (25-34) pg MCHC (32-36) g/dL RDW Std Deviation (36.4-46.3) fL RDW Coeff of Lyssa (11.5-14.5) % Plt Count (130-400) K/uL MPV (7.4-10.4) fL Immature Gran % (Auto) % Neut % (Auto) % Lymph % (Auto) % [place] % (Auto) % Eos % (Auto) % Baso % (Auto) % Immature Gran # (Auto) (0.00-0.02) K/uL Neut # (Auto) (1.4-6.5) K/uL Lymph # (Auto) (1.2-3.4) K/uL [place] # (Auto) (0.11-0.59) K/uL Eos # (Auto) (0-0.5) K/uL Baso # (Auto) (0-0.2) K/uL Platelet Estimate (Normal) Hypochromasia Echinocytes Sodium (136-145) mmol/L Potassium (3.5-5.1) mmol/L Chloride (98-107) mmol/L Carbon Dioxide (21-32) mmol/L Anion Gap (3-11) BUN (7-18) mg/dl Creatinine (0.6-1.2) mg/dl Est Cr Clr Drug Dosing ml/min Est GFR ( Amer) Est GFR (Non-Af Amer) BUN/Creatinine Ratio (10-20) Glucose (70-99) mg/dl POC Glucose 183 H (70-99) Lactate (0.4-2.0) mmol/L Calcium (8.5-10.1) mg/dl Phosphorus (2.5-4.9) mg/dl Magnesium (1.8-2.4) mg/dl Blood Type A Negative Antibody Screen NEGATIVE Crossmatch See Detail Medications Administered Current Inpatient Medications Dextrose (Dextrose 50%) 25 - 50 ml IV UD PRN; Protocol PRN Reason: Hypoglycemia Protocol Stop: 09/25/18 13:29 Fentanyl Citrate (Fentanyl Citrate) 12.5 mcg IV Q1H PRN PRN Reason: Pain Stop: 09/09/18 02:18 Last Admin: 08/27/18 08:07 Dose: 12.5 mcg Documented by: Glucagon (Glucagen) 1 mg SQ UD PRN; Protocol PRN Reason: Hypoglycemia Protocol Stop: 09/25/18 13:29 Glucose (Glucose 40%) 15 - 30 gm PO UD PRN; Protocol PRN Reason: Hypoglycemia Protocol Stop: 09/25/18 13:29 Glucose (Dex4 Glucose) 4 - 8 tabs PO UD PRN; Protocol PRN Reason: Hypoglycemia Protocol Stop: 09/25/18 13:29 Lactated Ringer's (Lr) 1,000 mls @ 150 mls/hr IV .[id number] [facility] Stop: 09/24/18 21:14 Last Infusion: 08/27/18 06:00 Dose: 0 mls/hr Documented by: Promethazine HCl 12.5 mg/ (Sodium Chloride) 50.5 mls @ 202 mls/hr IV Q6H PRN PRN Reason: Nausea And Vomiting Stop: 09/24/18 21:05 Acetaminophen (Ofirmev) 65 mls @ 200 mls/hr IV Q6H PRN PRN Reason: Fever Stop: 09/24/18 21:14 Last Infusion: 08/27/18 03:25 Dose: Infused Documented by: Piperacillin Sod/Tazobactam (Sod 3.375 gm/ Dextrose) 115 mls @ 28.75 mls/hr IV Q8H [facility]; Protocol Stop: 09/05/18 01:59 Last Admin: 08/27/18 09:22 Dose: 28.8 mls/hr Documented by: Pantoprazole Sodium 40 mg/ (Syringe) 10 mls @ 5 mls/min IV BID@0900,2100 [facility] Stop: 09/25/18 08:59 Last Admin: 08/27/18 08:52 Dose: 5 mls/min Documented by: Phenylephrine HCl 20 mg/ (Dextrose) 502 mls @ 34.7 mls/hr IV .[id number] [facility]; Protocol Stop: 09/25/18 02:31 Last Admin: 08/27/18 06:13 Dose: Not Given Documented by: Sodium Chloride (Nss) 250 mls @ 15 mls/hr IV .[id number] PRN PRN Reason: For Transfusion Stop: 09/25/18 06:45 Sodium Chloride (Nss) 250 mls @ 15 mls/hr IV .[id number] PRN PRN Reason: For Transfusion Stop: 09/26/18 05:20 Insulin Aspart (Novolog Flexpen) 0 units SC Q6 [facility] Stop: 09/25/18 17:59 Last Admin: 08/27/18 06:39 Dose: Not Given Documented by: Ipratropium [place] (Atrovent 0.02% 0.5mg/2.5ml) 0.5 mg INH Q6R [facility] Stop: 09/25/18 01:59 Last Admin: 08/27/18 07:22 Dose: Not Given Documented by: Levalbuterol HCl (Xopenex 1.25mg/0.5ml Neb) 1.25 mg INH Q6R [facility] Stop: 09/25/18 01:59 Last Admin: 08/27/18 07:22 Dose: Not Given Documented by: Miscellaneous (Icu Protocol For Hyperglycemia) 1 ea N/A PRN PRN; Protocol PRN Reason: Hyperglycemia Protocol Stop: 08/27/18 21:05 Miscellaneous (Carbohydrates For Hypoglycemia) 15 - 30 gm PO UD PRN PRN Reason: Hypoglycemia Treatment Stop: 09/25/18 13:29 Miscellaneous Information (Consult) 1 ea N/A UD PRN PRN Reason: Consult Stop: 09/24/18 19:37 Olanzapine (Zyprexa) 2.5 mg IM Q4H PRN PRN Reason: Anxiety/Agitation Stop: 09/25/18 02:38 Sucralfate (Carafate) 1 gm PO ACHS [facility] Stop: 09/26/18 08:59 Last Admin: 08/27/18 09:22 Dose: 1 gm Documented by: Timolol Maleate (Timoptic 0.25% Oph) 1 drops OPL QAM [facility] Stop: 09/25/18 08:59 Last Admin: 08/27/18 08:52 Dose: 1 drops Documented by: Resident Activity Tracking Resident Involvement: Resident Care Provided Care Provided: Adult Hospital Medicine
[2018-08-27] MEDS ORDERED: FUROSEMIDE 40 MG/4 ML VIAL IV STA (11:13)
[2018-08-27] MEDS ORDERED: FUROSEMIDE 40 MG/4 ML VIAL IV ONE (11:17)
--- NOTE | 2018-08-27 14:31 | Hospitalist Progress Note ---
Date of Service August 27, 2018 Assessment & Plan (1) Hypotension: Perforated gastric ulcer H/O GERD as per records--patient H/O PUD Severe sepsis/ Likely Hemorrhagic Shock Possible adrenal insufficiency given recent prednisone course S/P Laparotomy, Oversew of perforated gastric ulcer, Jonn patch, Abdominal washout POD #2 NPO for now Continue IV Zosyn S/P 4 units PRCBs Received sol of Decadron for possible adrenal insufficiency Continue Supportive Care Appreciate As400 Programmer/Surgery Input Continue PPI Hold Aspirin, Naproxen On pressors--wean off as able Blood Cultures: No growth to date Added Carafate Increased MERE drain output-- Possibly due to muscular bleed as per Surgery Transfuse PRBCs as needed Monitor H&H Surgery following Hypoxemic respiratory failure, possibly chronic Likely from COPD given emphysematous changes on imaging Past tobacco abuse Continue Nebs Supplemental Oxygen as needed Pericardial Effusion ECHO: EF: 65-70%; Moderate Pericardial effusion without evidence of Tamponade Monitor Volume status closely Consider Cardiology eval if necessary Repeat ECHO as needed PVD S/P surgery H/O CVA/cerebral aneurysm S/P Left Carotid endarterectomy Aspirin, Statin on hold Chronic anemia Hb 6.2>>7.2 Estimated Blood Loss after surgery: 25ml Hb drop--Partly dilutional due to IV Fluids S/P 4 units PRBCs ? Hemorrhagic pericardial effusion Monitor Hb closely Steroid-induced hyperglycemia A1C: 5.9 Continue ISS Monitor BGs DVT Px: SCDs Code Status Full code Subjective Patient is seen and examined at bedside Complains of mild generalized abdominal pain Increased MERE drain output Hb 7.2 today Getting PRBCs this morning Also reports being SOB and nausea but no vomiting Cr up to 1.5 Family at bedside Review of Systems Review of Systems: All systems reviewed & are unremarkable except as noted in HPI & below Physical Exam Physical Exam: Physical Exam: Vitals signs as noted above General Appearance:ill appearing, no apparent distress Head: normocephalic, Atraumatic Eyes: normal inspection, EOMI Neck: supple, Trachea midline Respiratory/Chest: Normal breath sounds, CTA Cardiovascular: S1, S2, No murmur, +Tachycardia Abdomen/GI:Soft, generalized mild tender, + Surgical site in dressing, Drain, Bowel sounds present Extremities/Musculoskelatal:normal inspection, no edema Neurologic/Psych:AAOX3, grossly no focal neurological deficits Skin: normal color, warm Results & Data Vital Signs (Past 12 Hours) Vital Signs Temp Pulse Resp BP Pulse Ox 08/27/18 11:14 36.9 C 116 H 24 183/110 H 116 H 08/27/18 11:01 112 H 25 H 183/110 H 96 08/27/18 10:46 111 H 29 H 176/98 H 94 08/27/18 10:31 106 H 23 176/92 H 99 08/27/18 10:16 102 H 26 H 146/79 H 97 08/27/18 10:02 104 H 27 H 153/72 H 97 08/27/18 09:46 108 H 22 127/68 91 08/27/18 09:31 123 H 26 H 169/109 H 96 08/27/18 09:16 117 H 25 H 144/98 H 94 08/27/18 09:01 121 H 25 H 118/69 97 08/27/18 08:47 123 H 24 132/70 96 08/27/18 08:42 36.7 C 124 H 22 111/82 96 08/27/18 08:39 36.7 C 130 H 20 111/82 96 08/27/18 08:31 36.7 C 119 H 24 111/82 92 08/27/18 08:00 123 H 08/27/18 07:00 36.8 C 124 H 18 153/80 H 96 08/27/18 06:30 36.7 C 112 H 18 140/67 94 08/27/18 06:15 36.8 C 111 H 18 113/56 L 92 08/27/18 06:00 36.7 C 114 H 18 129/60 93 Laboratory Results Short CBC 08/26/18 08/27/18 Range/Units 19:54 04:22 WBC 10.71 (4.8-10.8) K/uL Hgb 8.1 L 7.2 L (12.0-16.0) g/dL Hct 22.7 L 20.6 L* (37-47) % Plt Count 156 (130-400) K/uL BMP 08/27/18 04:22 Sodium 133 L Potassium 4.0 Chloride 105 Carbon Dioxide 23 BUN 19 H Creatinine 1.58 H Glucose 123 H Calcium 8.0 L Cardiac Enzymes 08/27/18 Range/Units 11:23 Troponin I 0.034 (0-0.045) ng/ml
[2018-08-27 19:39] LABS: Hematocrit (blood only) 30.6 % (37-47); Hemoglobin 10.9 g/dL (12.0-16.0)
[2018-08-28] MEDS: INSULIN ASPART 100 UNITS/ML 3 ML PEN SC SCH ×3 (00:23→11:58)
[2018-08-28] MEDS: ACETAMINOPHEN 65 ML IV PRN ×3 (00:37→22:11)
[2018-08-28] MEDS: PIPERACILLIN/TAZOBACTAM 3.375 GM in DEXTROSE 5% 100 ML IV SCH ×3 (01:19→18:18)
[2018-08-28] MEDS: IPRATROPIUM BROMIDE NEB SOLN 0.02% 2.5 ML VIAL INH SCH ×2 (02:09→07:03)
[2018-08-28] MEDS: LEVALBUTEROL 1.25MG/0.5ML NEB INH SCH ×2 (02:10→07:03)
[2018-08-28 03:07] LABS: Basophils # (auto) 0.01 K/uL (0-0.2); Basophils % (auto) 0.1 %; Eosinophils # (auto) 0.15 K/uL (0-0.5); Eosinophils % (auto) 1.3 %; Hematocrit (blood only) 30.1 % (37-47); Hemoglobin 10.6 g/dL (12.0-16.0); Immature Granulocytes # (auto) 0.03 K/uL (0.00-0.02); Immature Granulocytes % (auto) 0.3 %; Lymphocytes # (auto) 0.95 K/uL (1.2-3.4); Lymphocytes % (auto) 8.5 %; Mean Corpuscular Hgb Conc 35.2 g/dL (32-36); Mean Corpuscular Volume 84.6 fL (80-100); Mean Platelet Volume 8.8 fL (7.4-10.4); Monocytes # (auto) 1.06 K/uL (0.11-0.59); Monocytes % (auto) 9.5 %; Neutrophils # (auto) 8.98 K/uL (1.4-6.5); Neutrophils % (auto) 80.3 %; Platelet Count 143 K/uL (130-400); RDW Coefficient of Variation 15.2 % (11.5-14.5); RDW Standard Deviation 47.6 fL (36.4-46.3); Red Blood Count 3.56 M/uL (4.2-5.4); White Blood Count 11.18 K/uL (4.8-10.8)
[2018-08-28 03:44] LABS: BUN Creatinine Ratio 12.4 (10-20); Creatinine Clr Calc Pharmacy 32.1 ml/min; Est GFR (African American) 39.5; Est GFR (Non-African American) 34.1; Potassium 3.2 mmol/L (3.5-5.1)
[2018-08-28] MEDS: POTASSIUM CHLORIDE / WTR 10 MEQ/100 ML PLCT IV SCH ×4 (04:21→07:50)
[2018-08-28] MEDS: fentaNYL citrate 100 MCG/2 ML VIAL IV PRN ×2 (04:34→07:50)
[2018-08-28] MEDS ORDERED: POTASSIUM CHLORIDE / WTR 10 MEQ/100 ML PLCT IV SCH (07:15)
[2018-08-28] MEDS: SUCRALFATE 1 GM/10 ML UDC PO SCH ×4 (07:50→20:01)
[2018-08-28] MEDS: TIMOLOL MALEATE 0.25% OP SOLN 5 ML BTL OPL SCH (07:50)
[2018-08-28] MEDS: PANTOprazole 40 MG in SYRINGE 0 ML IV SCH ×2 (07:51→20:08)
--- NOTE | 2018-08-28 08:18 | Critical Care Progress Note ---
Date of Service August 28, 2018 Assessment & Plan (1) Acute gastric ulcer with perforation: Reason Critically Ill: 68-year-old female here for shortness of breath, hypotension, and epigastric pain 2/2 perforated gastric ulcer s/p laparoscopy converted to laparotomy with gastric oversew and patch repair 08/25/2018. . Past medical history significant for CHFpEF, HTN, PVD, CVA, HLD, paraproteinemia, tobacco abuse, and chronic anemia. She is admitted for care in the ICU for severe anemia and continued bleeding into her MERE drain. Neuro CAM ICU: NEGATIVE Cardiac - Congestive Heart Failure with Preserved EF: - BNP 11.9K on admit with pericardial effusion, pEF, concentric LVH noted on echo. - Unclear etiology of pericardial effusion, may have been contributing to her shortness of breath in the last month although there are no signs of tamponade. Concern for gastric oncologic origin, would benefit from further workup once clinically stable. - Experienced increased shortness of breath with rales 2/2 transfusion + fluid infusion which responded to lasix yesterday. Hyperlipidemia: Held Atorvastatin 80mg PO qHS in setting of NPO 2/2 gastric surgery Respiratory - Acute Respiratory Failure with Shortness of breath 2/2 acute on chronic anemia with possible cardiogenic component. - Hx COPD: Albuterol neb Q6H PRN, ipratropium .5mg INH Q6H, Albuterol INH Q6H PRN, - Titrate O2 to goal SpO2>94%. Weaned to oxymask 3L last night and experienced some desats to the 80s, currently at 4LNC. - Anemia treatment as below - Endorses some L pleuritic pain and given continued oxygen requirements with repeat CXR today GI - Perforated Gastric Ulcer s/p Gastric Oversew and Patch Repair. She is being followed by Dr. Hughes and the surgical service. Ulcer may have been chronic given history of anemia, unclear cause at this time. No excess NSAID use, does have a history of prednisone use. No H. pylori sampling taken, consider evaluation once stable. - NPO s/p gastric repair. - Protonix 40mg IV BID. Anticipate ~6-8 week total course of PPI therapy. - Pip/Yuri Q8H. Assuming good source control and improving clinical course after surgery would continue for 7 days. - Pain control: Converted from Fentanyl 12.5mcg Q1H PRN to hydromorphone .25mg Q4H PRN + Ofirmev IV Q6H PRN. - Surgery following. Pending further assessment of continued MERE output, although more serous with decreased output and stable Hgb today. Anticipate upper endoscopy /Sunday. RENAL/LYTES - - Potassium decreased from 4 to 3.2 in setting of lasix, undergoing repletion with 10meq KCl rider x4. - Cr 1.54 from 1.58 today, baseline ~1.0 - Acute kidney risk/injury 2/2 ATN +/- prerenal. Continue to trend BMP/Cr daily, cautious IV repletion given pulmonary edema and current faint L crackles. - - Increased UOP in response to lasix 40mg IV. I: 1.4L, O: 5.1L, net -3.7L with UOP 2.68cc/kg/hr. - IVFM held in setting of pulmonary edema, if doing clinically well but remaining NPO can restart lilian LR IVFM vs intermittent gentle bolus. ENDO - - Glucose adequately controlled, A1C = 5.9%. - No pharmacologic glycemic control at this time. HEME - - Hgb improved from 7.2 to 10.9 follow 2u pRBC, stable at 10.6 today - Assessment of serosanginous/sanginous MERE output with possible upper endo pending as above ID - See GI. Afebrile at this time. Leukocytosis to 11.1 today. Monitor fever curve. INTEGUMENTARY - - No bruising/lesions. - Abdominal surgical site appropriately tender. Dressing C/D/I without signs of dehiscence or infection. LINES/IV ACCESS - PIVs intact. DVT PROPHYLAXIS - - Held in setting of acute GIB. Thank you for allowing us to be part of this patient's care. Please refer to Dr. Vaughn's documentation for any further recommendations. Subjective Rowena reports she feels tired today, mostly the same as yesterday afternoon. Her breathing has improved after receiving lasix. Continues to endorse discomfort in her R flank/chest with inspiration and tenderness in her epigastrum at her surgical site. Denies shortness of breath at rest on oxygen. Denies fevers, chills, sweats overnight. Denies chest pain. Denies nausea/vomiting. No questions/concerns at time of visit. Review of Systems Review of Systems: Constitutional: Denies fever, chills, weight change. Endorses fatigue Eyes: Denies double vision, vision change ENT: Denies ear pain, sore throat, sinus pain Cardiovascular: Denies chest pain, chest pressure, palpitations, extremity swelling Respiratory: Denies cough, sputum production. Mild difficulty breathing 2/2 rib pain. No SoB at rest this morning, improved from yesterday. Gastrointestinal: Denies abdominal pain at rest, endorses tenderness to palpation at surgical site. Denies nausea, vomiting, diarrhea. +Constipation Genitourinary: Denies pain with urination, sanz present Musculoskeletal: Endorses fatigue/weakness, denies muscle aches/pain, joint aches/pain Integumentary:Denies rash, lesions, bruising Neurological: Denies headache, numbness, tingling Physical Exam Physical Exam: General: A&Ox3. Appears tired, but NAD. Cooperative. HEENT: Atraumatic, normocephalic. Pulm: LLL with faint crackles. Otherwise CTAB A&P without overt -wheezes, - rales, -rhonchi. Symmetrical chest rise. No respiratory distress. On 4L Oxymask. Cardiac: RRR, -mrg. Radial pulses intact and symmetrical. Abdominal: Surgical dressing C/D/I. MERE drain with serosanginous fluid. Abdomen tender at surgical site. Nondistended. Results & Data Vital Signs (Past 12 Hours) Vital Signs Temp Pulse Pulse Resp BP Pulse Ox 08/28/18 07:03 102 H 20 96 08/28/18 06:01 95 H 17 120/78 94 08/28/18 06:00 99 H 19 95 08/28/18 05:01 99 H 16 140/82 92 08/28/18 05:00 99 H 17 94 08/28/18 04:01 36.8 C 103 H 20 116/77 95 08/28/18 04:00 102 H 19 96 08/28/18 03:01 104 H 18 120/59 L 95 08/28/18 03:00 109 H 19 95 08/28/18 02:10 103 H 18 93 08/28/18 02:01 100 H 19 126/75 94 08/28/18 02:00 99 H 18 94 08/28/18 01:01 103 H 22 147/94 H 94 08/28/18 01:00 102 H 18 94 08/28/18 00:03 104 H 20 93 08/28/18 00:02 36.8 C 106 H 20 166/81 H 96 08/28/18 00:00 101 H 19 95 08/27/18 23:01 103 H 24 161/92 H 95 08/27/18 23:00 98 H 19 95 08/27/18 22:02 105 H 16 135/77 91 08/27/18 22:00 103 H 19 92 08/27/18 21:03 105 H 18 94 08/27/18 21:02 106 H 20 116/71 94 08/27/18 21:00 36.7 C 113 H 17 116/71 93 08/27/18 20:01 108 H 19 110/78 91 08/27/18 20:00 110 H 17 93 Laboratory Results 08/28/18 08/28/18 08/28/18 Range/Units 05:50 02:55 02:55 WBC 11.18 H (4.8-10.8) K/uL RBC 3.56 L (4.2-5.4) M/uL Hgb 10.6 L (12.0-16.0) g/dL Hct 30.1 L (37-47) % MCV 84.6 (80-100) fL MCH 29.8 (25-34) pg MCHC 35.2 (32-36) g/dL RDW Std Deviation 47.6 H (36.4-46.3) fL RDW Coeff of Lyssa 15.2 H (11.5-14.5) % Plt Count 143 (130-400) K/uL MPV 8.8 (7.4-10.4) fL Immature Gran % (Auto) 0.3 % Neut % (Auto) 80.3 % Lymph % (Auto) 8.5 % [place] % (Auto) 9.5 % Eos % (Auto) 1.3 % Baso % (Auto) 0.1 % Immature Gran # (Auto) 0.03 H (0.00-0.02) K/uL Neut # (Auto) 8.98 H (1.4-6.5) K/uL Lymph # (Auto) 0.95 L (1.2-3.4) K/uL [place] # (Auto) 1.06 H (0.11-0.59) K/uL Eos # (Auto) 0.15 (0-0.5) K/uL Baso # (Auto) 0.01 (0-0.2) K/uL Sodium 136 (136-145) mmol/L Potassium 3.2 L D (3.5-5.1) mmol/L Chloride 103 (98-107) mmol/L Carbon Dioxide 29 (21-32) mmol/L Anion Gap 4.0 (3-11) BUN 19 H (7-18) mg/dl Creatinine 1.54 H (0.6-1.2) mg/dl Est Cr Clr Drug Dosing 32.1 ml/min Est GFR ( Amer) 39.5 Est GFR (Non-Af Amer) 34.1 BUN/Creatinine Ratio 12.4 (10-20) Glucose 98 (70-99) mg/dl POC Glucose 99 (70-99) Calcium 8.0 L (8.5-10.1) mg/dl Troponin I (0-0.045) ng/ml Blood Type Antibody Screen Crossmatch 08/28/18 08/27/18 08/27/18 Range/Units 00:16 19:24 17:41 WBC (4.8-10.8) K/uL RBC (4.2-5.4) M/uL Hgb 10.9 L D (12.0-16.0) g/dL Hct 30.6 L (37-47) % MCV (80-100) fL MCH (25-34) pg MCHC (32-36) g/dL RDW Std Deviation (36.4-46.3) fL RDW Coeff of Lyssa (11.5-14.5) % Plt Count (130-400) K/uL MPV (7.4-10.4) fL Immature Gran % (Auto) % Neut % (Auto) % Lymph % (Auto) % [place] % (Auto) % Eos % (Auto) % Baso % (Auto) % Immature Gran # (Auto) (0.00-0.02) K/uL Neut # (Auto) (1.4-6.5) K/uL Lymph # (Auto) (1.2-3.4) K/uL [place] # (Auto) (0.11-0.59) K/uL Eos # (Auto) (0-0.5) K/uL Baso # (Auto) (0-0.2) K/uL Sodium (136-145) mmol/L Potassium (3.5-5.1) mmol/L Chloride (98-107) mmol/L Carbon Dioxide (21-32) mmol/L Anion Gap (3-11) BUN (7-18) mg/dl Creatinine (0.6-1.2) mg/dl Est Cr Clr Drug Dosing ml/min Est GFR ( Amer) Est GFR (Non-Af Amer) BUN/Creatinine Ratio (10-20) Glucose (70-99) mg/dl POC Glucose 110 H 95 (70-99) Calcium (8.5-10.1) mg/dl Troponin I (0-0.045) ng/ml Blood Type Antibody Screen Crossmatch 08/27/18 08/27/18 08/25/18 Range/Units 11:41 11:23 20:35 WBC (4.8-10.8) K/uL RBC (4.2-5.4) M/uL Hgb (12.0-16.0) g/dL Hct (37-47) % MCV (80-100) fL MCH (25-34) pg MCHC (32-36) g/dL RDW Std Deviation (36.4-46.3) fL RDW Coeff of Lyssa (11.5-14.5) % Plt Count (130-400) K/uL MPV (7.4-10.4) fL Immature Gran % (Auto) % Neut % (Auto) % Lymph % (Auto) % [place] % (Auto) % Eos % (Auto) % Baso % (Auto) % Immature Gran # (Auto) (0.00-0.02) K/uL Neut # (Auto) (1.4-6.5) K/uL Lymph # (Auto) (1.2-3.4) K/uL [place] # (Auto) (0.11-0.59) K/uL Eos # (Auto) (0-0.5) K/uL Baso # (Auto) (0-0.2) K/uL Sodium (136-145) mmol/L Potassium (3.5-5.1) mmol/L Chloride (98-107) mmol/L Carbon Dioxide (21-32) mmol/L Anion Gap (3-11) BUN (7-18) mg/dl Creatinine (0.6-1.2) mg/dl Est Cr Clr Drug Dosing ml/min Est GFR ( Amer) Est GFR (Non-Af Amer) BUN/Creatinine Ratio (10-20) Glucose (70-99) mg/dl POC Glucose 131 H (70-99) Calcium (8.5-10.1) mg/dl Troponin I 0.034 (0-0.045) ng/ml Blood Type A Negative Antibody Screen NEGATIVE Crossmatch See Detail Medications Administered Current Inpatient Medications Dextrose (Dextrose 50%) 25 - 50 ml IV UD PRN; Protocol PRN Reason: Hypoglycemia Protocol Stop: 09/25/18 13:29 Glucagon (Glucagen) 1 mg SQ UD PRN; Protocol PRN Reason: Hypoglycemia Protocol Stop: 09/25/18 13:29 Glucose (Glucose 40%) 15 - 30 gm PO UD PRN; Protocol PRN Reason: Hypoglycemia Protocol Stop: 09/25/18 13:29 Glucose (Dex4 Glucose) 4 - 8 tabs PO UD PRN; Protocol PRN Reason: Hypoglycemia Protocol Stop: 09/25/18 13:29 Hydromorphone HCl (Dilaudid) 0.25 mg IV Q4H PRN PRN Reason: Pain Stop: 09/11/18 08:28 Promethazine HCl 12.5 mg/ (Sodium Chloride) 50.5 mls @ 202 mls/hr IV Q6H PRN PRN Reason: Nausea And Vomiting Stop: 09/24/18 21:05 Acetaminophen (Ofirmev) 65 mls @ 200 mls/hr IV Q6H PRN PRN Reason: Fever Stop: 09/24/18 21:14 Last Infusion: 08/28/18 00:57 Dose: Infused Documented by: Piperacillin Sod/Tazobactam (Sod 3.375 gm/ Dextrose) 115 mls @ 28.75 mls/hr IV Q8H [facility]; Protocol Stop: 09/05/18 01:59 Last Infusion: 08/28/18 05:20 Dose: Infused Documented by: Pantoprazole Sodium 40 mg/ (Syringe) 10 mls @ 5 mls/min IV BID@0900,2100 [facility] Stop: 09/25/18 08:59 Last Admin: 08/28/18 07:51 Dose: 5 mls/min Documented by: Sodium Chloride (Nss) 250 mls @ 15 mls/hr IV .[id number] PRN PRN Reason: For Transfusion Stop: 09/25/18 06:45 Sodium Chloride (Nss) 250 mls @ 15 mls/hr IV .[id number] PRN PRN Reason: For Transfusion Stop: 09/26/18 05:20 Insulin Aspart (Novolog Flexpen) 0 units SC Q6 [facility] Stop: 09/25/18 17:59 Last Admin: 08/28/18 05:58 Dose: Not Given Documented by: Ipratropium [place] (Atrovent 0.02% 0.5mg/2.5ml) 0.5 mg INH Q6R [facility] Stop: 09/25/18 01:59 Last Admin: 08/28/18 07:03 Dose: 0.5 mg Documented by: Levalbuterol HCl (Xopenex 1.25mg/0.5ml Neb) 1.25 mg INH Q6R [facility] Stop: 09/25/18 01:59 Last Admin: 08/28/18 07:03 Dose: 1.25 mg Documented by: Miscellaneous (Carbohydrates For Hypoglycemia) 15 - 30 gm PO UD PRN PRN Reason: Hypoglycemia Treatment Stop: 09/25/18 13:29 Miscellaneous Information (Consult) 1 ea N/A UD PRN PRN Reason: Consult Stop: 09/24/18 19:37 Olanzapine (Zyprexa) 2.5 mg IM Q4H PRN PRN Reason: Anxiety/Agitation Stop: 09/25/18 02:38 Sucralfate (Carafate) 1 gm PO ACHS [facility] Stop: 09/26/18 08:59 Last Admin: 08/28/18 07:50 Dose: 1 gm Documented by: Timolol Maleate (Timoptic 0.25% Oph) 1 drops OPL QAM [facility] Stop: 09/25/18 08:59 Last Admin: 08/28/18 07:50 Dose: 1 drops Documented by: Resident Activity Tracking Resident Involvement: Resident Care Provided Care Provided: Adult [facility] Medicine
--- NOTE | 2018-08-28 09:22 | XRay Report ---
XR chest 1V portable HISTORY: Shortness of breath / pleuritic pain COMPARISON: Chest 08/25/2018. FINDINGS: There are low lung volumes. No pneumothorax. Trace right and small left pleural effusions w ith left basilar linear densities. This favors atelectasis. There is mild central pulmonary vascular congestion without overt edema. This is improved. The heart remains mildly enlarged. Midline skin sta ples are noted within the abdomen. IMPRESSION: 1. Mild pulmonary vascular congestion which has improved. 2. Trace right and small left pleural effusions. 3. Left basilar linear densities are nonspecific but favor atelectasis. Electronically signed by: oJse Alberto Connell M.D. 08/28/2018 9:21 AM
--- NOTE | 2018-08-28 09:29 | Surgery Progress Note ---
Date of Service August 28, 2018 Assessment & Plan (1) Acute gastric ulcer with perforation: POD 2 repair gastric ulcer H&H stable after transfusion PT/OT WBC 11, Cr unchanged 1.5 K riders ordered can remove sanz soon as above. pt awake/alert. pain controlled. MERE still with sanguinous output but H/H stable plan UGI Sunday. cont PPI/carafate ok to transfer to floor. appreciate medicine/cardiology input regarding pericardial effusion. (2) Anemia: Subjective no complaints, no flatus Physical Exam Gastrointestinal (Abdomen): Inspection/Auscultation: + abdomen distended (mild), + abdominal surgical incision (dry) and + abdominal surgical drain present (65cc, more serous) Percussion/Palpation: abdomen soft Results & Data Vital Signs (Past 12 Hours) Vital Signs Temp Pulse Pulse Resp BP Pulse Ox 08/28/18 07:03 102 H 20 96 08/28/18 06:01 95 H 17 120/78 94 08/28/18 06:00 99 H 19 95 08/28/18 05:01 99 H 16 140/82 92 08/28/18 05:00 99 H 17 94 08/28/18 04:01 36.8 C 103 H 20 116/77 95 08/28/18 04:00 102 H 19 96 08/28/18 03:01 104 H 18 120/59 L 95 08/28/18 03:00 109 H 19 95 08/28/18 02:10 103 H 18 93 08/28/18 02:01 100 H 19 126/75 94 08/28/18 02:00 99 H 18 94 08/28/18 01:01 103 H 22 147/94 H 94 08/28/18 01:00 102 H 18 94 08/28/18 00:03 104 H 20 93 08/28/18 00:02 36.8 C 106 H 20 166/81 H 96 08/28/18 00:00 101 H 19 95 08/27/18 23:01 103 H 24 161/92 H 95 08/27/18 23:00 98 H 19 95 08/27/18 22:02 105 H 16 135/77 91 08/27/18 22:00 103 H 19 92
[2018-08-28] MEDS: HYDROmorphone INJ 0.5 MG/0.5 ML SYR IV PRN ×3 (10:47→19:58)
[2018-08-28 11:15] LABS: Hematocrit (blood only) 29.3 % (37-47); Hemoglobin 10.1 g/dL (12.0-16.0)
--- NOTE | 2018-08-28 12:18 | Hospitalist Progress Note ---
Date of Service August 28, 2018 Assessment & Plan (1) Hypotension: Severe sepsis/ Likely Hemorrhagic Shock/acute blood loss anemia Possible adrenal insufficiency given recent prednisone course S/P 4 units PRCBs Received stress dose of Decadron for possible adrenal insufficiency Required pressors, IV fluid resuscitation-ICU admission, appreciate input from ICU team Weaned off IV pressors, vitals remained stable, Stable to be downgraded from ICU, transferred to PCU today Steroid-induced hyperglycemia A1C: 5.9 Continue ISS Monitor BGs (2) Anemia: Acute blood loss anemia in the setting of acute perforated gastric ulcer, status post exploratory laparotomy, Required total 4 units of PRBC transfusion Hemoglobin remained stable at 10.5, continue to monitor Patient is continued with IV PPI, added Carafate Present on Admission?: Yes (3) Acute gastric ulcer with perforation: Perforated gastric ulcer H/O GERD as per records--patient H/O PUD with NSAID intake -Aspirin /Naproxen Has been taking aspirin 325 mg daily for prior history of CVA presented with severe Abdominal pain, CT abdomen pelvis shows pneumoperitoneum, perforated gastric ulcer S/P emergent laparotomy, Oversew of perforated gastric ulcer, Jonn patch, Abdominal washout POD #3 Appreciate input from surgery Patient will need continued n.p.o. status, ordered for p.o. Carafate Plan for barium study on Sunday to assess for healing of gastric ulcer Present on Admission?: Yes (4) Hypoxia: Developed acute hypoxemic respiratory failure, hx of COPD given emphysematous changes on imaging Past tobacco abuse worsening of hypoxia possible secondary to severe sepsis, acute blood loss anemia, pericardial effusion Respiratory status improved cont supplemental 02 PRN Neb tx , Present on Admission?: Yes (5) Abdominal pain: Secondary to perforated gastric ulcer, management as outlined above Abdominal pain reasonably well controlled Present on Admission?: Yes (6) Atrial ectopic tachycardia: Due to combination of severe sepsis, perforated gastric ulcer, acute blood loss anemia, hypotension related to dehydration/volume loss/sepsis Echocardiogram shows moderate pericardial effusion without evidence of pericardial tamponade Hypotension treated with IV fluid resuscitation, received PRBC transfusion fusion acute blood loss anemia We will continue to monitor with echocardiogram for improvement of pericardial effusion Cardiology consulted Patient will need continued telemetry monitoring Will be transferred out of ICU to PCU Present on Admission?: Yes (7) CVA (cerebral vascular accident): Prior history of CVA, no neurological residual defects DC aspirin (was taking 325 mg p.o. daily) For gastric ulcer perforation, acute blood loss anemia Present on Admission?: Yes (8) HTN (hypertension): Presented with hypotension secondary to severe sepsis, acute blood loss anemia, dehydration Received IV fluids, pressor supports blood pressure Blood pressure remains stable today Continue to monitor (9) Pericardial effusion: Incidental finding with echocardiogram, Pericardial Effusion ECHO: EF: 65-70%; Moderate Pericardial effusion without evidence of Tamponade Patient reports of progressive shortness of breath dyspnea on exertion for past 1 month associated with generalized weakness fatigue No report of fever or chills Had ER visit times twice, had CT of the chest Patient's family physician Dr. Osei Garcia made referral to Cardiology at [facility] was scheduled for cardiology appointment today 08/28/2018, Consulted [facility] in cardiology in-house to evaluate patient Present on Admission?: Yes (10) Severe sepsis: Presented with severe sepsis secondary to perforated abdominal viscus/perforation of gastric ulcer Status post exploratory laparotomy with repair of perforation/ Required IV pressors briefly, received IV fluid resuscitation Continue broad-spectrum antibiotic with IV Zosyn Continue to monitor cultures ID evaluation requested Present on Admission?: Yes (11) PVD (peripheral vascular disease): PVD S/P surgery H/O CVA/cerebral aneurysm S/P Left Carotid endarterectomy Aspirin, Statin on hold -NPO/perforated gastric ulcer, acute blood loss anemia DVT prophylaxis: SCD and teds, Pharmacological anticoagulation avoided in the setting of perforated gastric ulcer, active blood loss anemia Disposition: Stable to be transferred out of ICU Out of bed to chair as tolerated (discussed with surgery) PT OT evaluation requested given updated bedside Family medicine follow-up with Dr. Osei Garcia at [facility] Subjective Patient seen in ICU room 109 Awake and alert, says she feels better than yesterday, has minimal abdominal pain, Got pain medication earlier No nausea vomiting, denies of any orthopnea, afebrile No bowel movement yet Physical Exam Constitutional: WD/WN, vitals as above no acute distress Eyes: PERRL, conjunctivae normal, anicteric sclerae ENMT: external ear and nose normal, oropharynx normal Neck: trachea midline, no thyromegaly Respiratory: normal respiratory effort, lungs clear to auscultation Cardiovascular: RRR, no murmur, no edema Gastrointestinal (Abdomen): Status post exploratory laparotomy, MERE drain present, filled with serosanguineous drainage Musculoskeletal: no cyanosis or clubbing, extremities motor strength 5/5 Skin: Diffuse ecchymosis noted on bilateral arm, at the sites of lab draw Neurologic: PERRL, EOMI, accommodation nl, no face palsy, no dysarthria Psychiatric: A+Ox3, euthymic affect Results & Data Vital Signs (Past 12 Hours) Vital Signs Temp Pulse Pulse Resp BP Pulse Ox 08/28/18 11:01 106 H 21 149/90 H 08/28/18 10:02 103 H 21 163/86 H 96 08/28/18 09:01 96 H 19 121/76 99 08/28/18 08:01 109 H 18 117/55 L 93 08/28/18 08:00 105 H 08/28/18 07:03 102 H 20 96 08/28/18 07:01 105 H 19 135/103 H 100 08/28/18 06:01 95 H 17 120/78 94 08/28/18 06:00 99 H 19 95 08/28/18 05:01 99 H 16 140/82 92 08/28/18 05:00 99 H 17 94 08/28/18 04:01 36.8 C 103 H 20 116/77 95 08/28/18 04:00 102 H 19 96 08/28/18 03:01 104 H 18 120/59 L 95 08/28/18 03:00 109 H 19 95 08/28/18 02:10 103 H 18 93 08/28/18 02:01 100 H 19 126/75 94 08/28/18 02:00 99 H 18 94 08/28/18 01:01 103 H 22 147/94 H 94 08/28/18 01:00 102 H 18 94 (1) Hypotension Hypotension type: hypotension due to hypovolemia Qualified Code(s): I95.89 - Other hypotension; E86.1 - Hypovolemia (2) Anemia Anemia type: other cause Other causes of anemia: acute posthemorrhagic Qualified Code(s): D62 - Acute posthemorrhagic anemia (3) Abdominal pain Abdominal location: generalized Qualified Code(s): R10.84 - Generalized abdominal pain
[2018-08-28] MEDS ORDERED: LEVALBUTEROL 1.25MG/0.5ML NEB INH PRN (12:59)
[2018-08-28] MEDS ORDERED: IPRATROPIUM BROMIDE NEB SOLN 0.02% 2.5 ML VIAL INH PRN (12:59)
[2018-08-28] MEDS ORDERED: D5NSS + 20MEQ KCL 20 MEQ/1,000 ML BAG IV SCH (14:00)
--- NOTE | 2018-08-28 14:11 | Infectious Disease Consult ---
Date of Consultation August 28, 2018 Assessment & Plan (1) Severe sepsis: would continue IV zosyn for now, will likely 14 days abx total. blood cultures remain negative, maintain IV abx for now as she is not eating. may be able to advance to po abx to complete course, will follow. (2) Acute gastric ulcer with perforation: History of Present Illness Attending Physician: Lis Barber, Pt admitted with acute onset abd pain. Had been seen in ER on 08/21 for SOB , CTA negative, d/c home. Had increased sob and abd pain and presented back to ER on 08/25 - ct abd/pelvis revealed a perforation and 6.8x3.8 pneumoperitoneum with ascites. Surgical patch with washout done on 08/25, tolerated well. blood cultures from 08/25 negative to date. Placed on zosyn in ER and remains on this. Remains npo, no appetite. Still c/o abd pain but improving. dressing intact. no f/c since admission, denies fevers at home. wbc 11 today, creat 1.5. Initially hotn with need for pressors, hemodynamically stable currently, pending transfer from ICU. tolerating abx. ID consulted for sepsis Allergies Allergy/AdvReac Type Severity Reaction Status Date / Time hydrocodone Allergy Intermediate CONFUSION Verified 08/25/18 18:06 ramipril Allergy Intermediate Nausea Verified 08/25/18 18:06 Sulfa (Sulfonamide Allergy Intermediate Nausea Verified 08/25/18 18:06 Antibiotics) Home Medications Home Medications Medication Instructions Recorded Confirmed Type atorvastatin 80 mg PO HS 02/22/18 08/25/18 History multivitamin 1 tab PO QAM 02/22/18 08/25/18 History omega 4-umg-zrw-fish oil [Fish Oil] 1,000 mg PO QAM 02/22/18 08/25/18 History albuterol sulfate 2 puffs INH Q4H PRN #6.7 gm 08/21/18 08/25/18 Rx timolol maleate 1 drp OPL QAM 08/21/18 08/25/18 History aspirin 325 mg PO QAM 08/25/18 08/25/18 History doxycycline hyclate 100 mg PO BID 08/25/18 08/25/18 History naproxen sodium [Aleve] 220 mg PO Q12H PRN 08/25/18 08/25/18 History prednisone 40 mg PO QAM 08/25/18 08/25/18 History Patient History Medical History Atrial ectopic tachycardia (Acute) Hyperlipidemia CVA (cerebral vascular accident) (Chronic) HTN (hypertension) Hip fracture (Acute) Acute dyspnea (Inactive) Anemia (Inactive) Bigeminy (Inactive) GERD (gastroesophageal reflux disease) Hyperlipidemia Hypertension no meds currently Stroke Surgical History History of carotid endarterectomy History of cataract extraction History of hand surgery History of tonsillectomy Family History Other Family history non-contributory Social History Preferred Language: Mexican Communication Ability: Effective Visual Impairment: No Limitations Beliefs That Will Affect Care: None marital status: Current Living Situation: Spouse Other Information That Helps Us Care for You: No Feels Safe at Home: Yes Safety Concerns: Feels Safe At This Time Smoking Status: Never smoker Hx Alcohol Use: No Hx Substance Use: No Review of Systems Review of Systems: All systems reviewed & are unremarkable except as noted in HPI & below Physical Exam Constitutional: WD/WN, vitals as above Eyes: PERRL, conjunctivae normal, anicteric sclerae ENMT: external ear and nose normal, oropharynx normal Neck: normal visual inspection Respiratory: normal respiratory effort, lungs clear to auscultation Cardiovascular: RRR, no murmur, no edema Gastrointestinal (Abdomen): Inspection/Auscultation: abdomen normal to inspection; abdomen not distended Percussion/Palpation: + abdomen tender and abdomen soft; abdomen not rigid surgical dressing intact, no drainage no bleeding Musculoskeletal: no cyanosis or clubbing, extremities motor strength 5/5 Skin: no rashes, warm and dry Psychiatric: A+Ox3, euthymic affect Results & Data Vital Signs (Past 12 Hours) Vital Signs Temp Pulse Pulse Resp BP Pulse Ox 08/28/18 11:01 106 H 21 149/90 H 08/28/18 10:02 103 H 21 163/86 H 96 08/28/18 09:01 96 H 19 121/76 99 08/28/18 08:01 109 H 18 117/55 L 93 08/28/18 08:00 105 H 08/28/18 07:03 102 H 20 96 08/28/18 07:01 105 H 19 135/103 H 100 08/28/18 06:01 95 H 17 120/78 94 08/28/18 06:00 99 H 19 95 08/28/18 05:01 99 H 16 140/82 92 08/28/18 05:00 99 H 17 94 08/28/18 04:01 36.8 C 103 H 20 116/77 95 08/28/18 04:00 102 H 19 96 08/28/18 03:01 104 H 18 120/59 L 95 08/28/18 03:00 109 H 19 95 08/28/18 02:10 103 H 18 93 Laboratory Results Microbiology 08/25/18 20:09 Blood Blood Culture - Preliminary No growth to date. 08/25/18 19:54 Blood Blood Culture - Preliminary No growth to date.
--- NOTE | 2018-08-28 14:21 | Cardiology Consultation ---
Date of Consultation August 28, 2018 Assessment & Plan (1) Acute gastric ulcer with perforation: (2) Pericardial effusion: I believe the patient's pericardial effusion is an incidental finding and not of clinical significance. The patient should recover from her recent surgery and if she remains hemodynamically stable, I do not believe any additional cardiac testing or treatment is indicated at this time. History of Present Illness Attending Physician: Lis Barber MD History of Present Illness This is a 68-year-old female with no prior history of heart disease. She was admitted with abdominal pain and taken emergently to surgery for perforated gastric ulcer. She tolerated the surgery without sequela. She is currently sitting in a chair comfortably and is stable. An echocardiogram had been obtained this admission which incidentally shows a moderate size posterior pericardial effusion. Patient has no prior history of pericarditis. No previous history of ischemic heart disease or valvular heart disease. She is also had no symptoms recently that would suggest pericarditis and no recent viral illnesses. Allergies Allergy/AdvReac Type Severity Reaction Status Date / Time hydrocodone Allergy Intermediate CONFUSION Verified 08/25/18 18:06 ramipril Allergy Intermediate Nausea Verified 08/25/18 18:06 Sulfa (Sulfonamide Allergy Intermediate Nausea Verified 08/25/18 18:06 Antibiotics) Home Medications Home Medications Medication Instructions Recorded Confirmed Type atorvastatin 80 mg PO HS 02/22/18 08/25/18 History multivitamin 1 tab PO QAM 02/22/18 08/25/18 History omega 6-xsc-eyl-fish oil [Fish Oil] 1,000 mg PO QAM 02/22/18 08/25/18 History albuterol sulfate 2 puffs INH Q4H PRN #6.7 gm 08/21/18 08/25/18 Rx timolol maleate 1 drp [facility] QAM 08/21/18 08/25/18 History aspirin 325 mg PO QAM 08/25/18 08/25/18 History doxycycline hyclate 100 mg PO BID 08/25/18 08/25/18 History naproxen sodium [Aleve] 220 mg PO Q12H PRN 08/25/18 08/25/18 History prednisone 40 mg PO QAM 08/25/18 08/25/18 History Patient History Medical History Atrial ectopic tachycardia (Acute) Hyperlipidemia CVA (cerebral vascular accident) (Chronic) HTN (hypertension) Hip fracture (Acute) Acute dyspnea (Inactive) Anemia (Inactive) Bigeminy (Inactive) GERD (gastroesophageal reflux disease) Hyperlipidemia Hypertension no meds currently Stroke Surgical History History of carotid endarterectomy History of cataract extraction History of hand surgery History of tonsillectomy Family History Other Family history non-contributory Social History Preferred Language: Wolof Communication Ability: Effective Visual Impairment: No Limitations Beliefs That Will Affect Care: None marital status: Current Living Situation: Spouse Other Information That Helps Us Care for You: No Feels Safe at Home: Yes Safety Concerns: Feels Safe At This Time Smoking Status: Never smoker Hx Alcohol Use: No Hx Substance Use: No Review of Systems Review of Systems: Review of Systems: See HPI for pertinent positives. All other 10 point review of systems are negative. Physical Exam Physical Exam: General: no acute distress and stated age Head: normocephalic, no masses, lesions, tenderness or abnormalities Eyes: conjunctiva are pink and non-injected, sclera clear Neck: supple, no adenopathy, no bruits, normal jugular venous pulse, no hepatojugular reflux Chest: normal shape and normal respiratory effort Lungs: clear to auscultation and percussion Cardiac Exam: - regular rate & rhythm, no murmurs gallops or rubs - normal S1, normal S2 Pulses: 2(+) throughout Abdomen: abdomen soft, non-tender, no abnormal masses and no hepatosplenomegaly Musculoskeletal: no gait disturbance, no joint inflammation, no deforming arthritis Extremities: no edema and no cyanosis Neuro: grossly normal exam Results & Data Vital Signs (Past 12 Hours) Vital Signs Temp Pulse Pulse Resp BP Pulse Ox 08/28/18 11:01 106 H 21 149/90 H 08/28/18 10:02 103 H 21 163/86 H 96 08/28/18 09:01 96 H 19 121/76 99 08/28/18 08:01 109 H 18 117/55 L 93 08/28/18 08:00 105 H 08/28/18 07:03 102 H 20 96 08/28/18 07:01 105 H 19 135/103 H 100 08/28/18 06:01 95 H 17 120/78 94 08/28/18 06:00 99 H 19 95 08/28/18 05:01 99 H 16 140/82 92 08/28/18 05:00 99 H 17 94 08/28/18 04:01 36.8 C 103 H 20 116/77 95 08/28/18 04:00 102 H 19 96 08/28/18 03:01 104 H 18 120/59 L 95 08/28/18 03:00 109 H 19 95 Laboratory Results Laboratory Results - last 24 hr 08/25/18 08/27/18 08/27/18 20:35 17:41 19:24 WBC RBC Hgb 10.9 L D Hct 30.6 L MCV MCH MCHC RDW Std Deviation RDW Coeff of Lyssa Plt Count MPV Immature Gran % (Auto) Neut % (Auto) Lymph % (Auto) Churchill % (Auto) Eos % (Auto) Baso % (Auto) Immature Gran # (Auto) Neut # (Auto) Lymph # (Auto) Churchill # (Auto) Eos # (Auto) Baso # (Auto) Sodium Potassium Chloride Carbon Dioxide Anion Gap BUN Creatinine Est Cr Clr Drug Dosing Est GFR ( Amer) Est GFR (Non-Af Amer) BUN/Creatinine Ratio Glucose POC Glucose 95 Calcium Crossmatch See Detail 08/28/18 08/28/18 08/28/18 00:16 02:55 02:55 WBC 11.18 H RBC 3.56 L Hgb 10.6 L Hct 30.1 L MCV 84.6 MCH 29.8 MCHC 35.2 RDW Std Deviation 47.6 H RDW Coeff of Lyssa 15.2 H Plt Count 143 MPV 8.8 Immature Gran % (Auto) 0.3 Neut % (Auto) 80.3 Lymph % (Auto) 8.5 Churchill % (Auto) 9.5 Eos % (Auto) 1.3 Baso % (Auto) 0.1 Immature Gran # (Auto) 0.03 H Neut # (Auto) 8.98 H Lymph # (Auto) 0.95 L Churchill # (Auto) 1.06 H Eos # (Auto) 0.15 Baso # (Auto) 0.01 Sodium 136 Potassium 3.2 L D Chloride 103 Carbon Dioxide 29 Anion Gap 4.0 BUN 19 H Creatinine 1.54 H Est Cr Clr Drug Dosing 32.1 Est GFR ( Amer) 39.5 Est GFR (Non-Af Amer) 34.1 BUN/Creatinine Ratio 12.4 Glucose 98 POC Glucose 110 H Calcium 8.0 L Crossmatch 08/28/18 08/28/18 08/28/18 05:50 11:00 11:33 WBC RBC Hgb 10.1 L Hct 29.3 L MCV MCH MCHC RDW Std Deviation RDW Coeff of Lyssa Plt Count MPV Immature Gran % (Auto) Neut % (Auto) Lymph % (Auto) Churchill % (Auto) Eos % (Auto) Baso % (Auto) Immature Gran # (Auto) Neut # (Auto) Lymph # (Auto) Churchill # (Auto) Eos # (Auto) Baso # (Auto) Sodium Potassium Chloride Carbon Dioxide Anion Gap BUN Creatinine Est Cr Clr Drug Dosing Est GFR ( Amer) Est GFR (Non-Af Amer) BUN/Creatinine Ratio Glucose POC Glucose 99 104 H Calcium Crossmatch Medications Administered Current Inpatient Medications Dextrose (Dextrose 50%) 25 - 50 ml IV UD PRN; Protocol PRN Reason: Hypoglycemia Protocol Stop: 09/25/18 13:29 Glucagon (Glucagen) 1 mg SQ UD PRN; Protocol PRN Reason: Hypoglycemia Protocol Stop: 09/25/18 13:29 Glucose (Glucose 40%) 15 - 30 gm PO UD PRN; Protocol PRN Reason: Hypoglycemia Protocol Stop: 09/25/18 13:29 Glucose (Dex4 Glucose) 4 - 8 tabs PO UD PRN; Protocol PRN Reason: Hypoglycemia Protocol Stop: 09/25/18 13:29 Hydromorphone HCl (Dilaudid) 0.25 mg IV Q4H PRN PRN Reason: Pain Stop: 09/11/18 08:28 Last Admin: 08/28/18 10:47 Dose: 0.25 mg Documented by: Promethazine HCl 12.5 mg/ (Sodium Chloride) 50.5 mls @ 202 mls/hr IV Q6H PRN PRN Reason: Nausea And Vomiting Stop: 09/24/18 21:05 Acetaminophen (Ofirmev) 65 mls @ 200 mls/hr IV Q6H PRN PRN Reason: Fever Stop: 09/24/18 21:14 Last Admin: 08/28/18 14:04 Dose: 150 mls/hr Documented by: Piperacillin Sod/Tazobactam (Sod 3.375 gm/ Dextrose) 115 mls @ 28.75 mls/hr IV Q8H [facility]; Protocol Stop: 09/05/18 01:59 Last Infusion: 08/28/18 14:04 Dose: Infused Documented by: Pantoprazole Sodium 40 mg/ (Syringe) 10 mls @ 5 mls/min IV BID@0900,2100 [facility] Stop: 09/25/18 08:59 Last Admin: 08/28/18 07:51 Dose: 5 mls/min Documented by: Sodium Chloride (Nss) 250 mls @ 15 mls/hr IV .[id number] PRN PRN Reason: For Transfusion Stop: 09/25/18 06:45 Sodium Chloride (Nss) 250 mls @ 15 mls/hr IV .[id number] PRN PRN Reason: For Transfusion Stop: 09/26/18 05:20 Potassium Chloride/Dextrose/Sod Cl (D5nss + 20meq Kcl) 20 meq in 1,000 mls @ 80 mls/hr IV .[id number] [facility] Stop: 08/29/18 02:29 Insulin Aspart (Novolog Flexpen) 0 units SC Q6 [facility] Stop: 09/25/18 17:59 Last Admin: 08/28/18 11:58 Dose: Not Given Documented by: Ipratropium [place] (Atrovent 0.02% 0.5mg/2.5ml) 0.5 mg INH Q6R PRN PRN Reason: wheeze Stop: 09/25/18 01:59 Levalbuterol HCl (Xopenex 1.25mg/0.5ml [facility]) 1.25 mg INH Q6R PRN PRN Reason: wheezing Stop: 09/25/18 01:59 Miscellaneous (Carbohydrates For Hypoglycemia) 15 - 30 gm PO UD PRN PRN Reason: Hypoglycemia Treatment Stop: 09/25/18 13:29 Miscellaneous Information (Consult) 1 ea N/A UD PRN PRN Reason: Consult Stop: 09/24/18 19:37 Olanzapine (Zyprexa) 2.5 mg IM Q4H PRN PRN Reason: Anxiety/Agitation Stop: 09/25/18 02:38 Sucralfate (Carafate) 1 gm PO ACHS [facility] Stop: 09/26/18 08:59 Last Admin: 08/28/18 11:44 Dose: 1 gm Documented by: Timolol Maleate (Timoptic 0.25% Oph) [facility] [place] Stop: 09/25/18 08:59 Last Admin: 08/28/18 07:50 Dose: 1 drops Documented by:
[2018-08-28] MEDS ORDERED: ALBUTEROL HFA 8 GM INHALER INH PRN (15:20)
[2018-08-28 17:55] LABS: Hemoglobin 10.5 g/dL (12.0-16.0)
[2018-08-28 18:22] LABS: Calcium 8.9 mg/dl (8.5-10.1); Creatinine Clr Calc Pharmacy 35.9 ml/min; Est GFR (African American) 45.5; Est GFR (Non-African American) 39.3; Potassium 3.5 mmol/L (3.5-5.1)
[2018-08-29] MEDS: HYDROmorphone INJ 0.5 MG/0.5 ML SYR IV PRN ×4 (00:51→21:35)
[2018-08-29] MEDS: PIPERACILLIN/TAZOBACTAM 3.375 GM in DEXTROSE 5% 100 ML IV SCH ×3 (02:08→16:46)
[2018-08-29 07:47] LABS: Hematocrit (blood only) 31.4 % (37-47); Hemoglobin 10.5 g/dL (12.0-16.0); Mean Corpuscular Hgb Conc 33.4 g/dL (32-36); Mean Corpuscular Volume 86.7 fL (80-100); Mean Platelet Volume 9.5 fL (7.4-10.4); Platelet Count 188 K/uL (130-400); RDW Coefficient of Variation 15.3 % (11.5-14.5); RDW Standard Deviation 49.1 fL (36.4-46.3); Red Blood Count 3.62 M/uL (4.2-5.4); White Blood Count 11.19 K/uL (4.8-10.8)
[2018-08-29] MEDS: TIMOLOL MALEATE 0.25% OP SOLN 5 ML BTL OPL SCH (08:16)
[2018-08-29] MEDS: SUCRALFATE 1 GM/10 ML UDC PO SCH ×4 (08:16→21:31)
[2018-08-29] MEDS: PANTOprazole 40 MG in SYRINGE 0 ML IV SCH ×2 (08:19→21:31)
[2018-08-29 08:23] LABS: BUN Creatinine Ratio 11.7 (10-20); Calcium 8.7 mg/dl (8.5-10.1); Creatinine Clr Calc Pharmacy 38.7 ml/min; Est GFR (African American) 51.3; Est GFR (Non-African American) 44.3; Potassium 3.4 mmol/L (3.5-5.1)
[2018-08-29] MEDS ORDERED: SODIUM CHLORIDE 0.9% 1000ML 500 ML IV ONE (12:25)
--- NOTE | 2018-08-29 14:25 | Infectious Disease Progress Nt ---
Date of Service August 29, 2018 Assessment & Plan (1) Severe sepsis: would continue IV zosyn for now, will likely 14 days abx total. blood cultures remain negative, maintain IV abx for now as she is not eating. may be able to advance to po abx - likely Augmentin to complete course, will follow. (2) Acute gastric ulcer with perforation: Subjective transferred from ICU, remains afebrile, hemodynamically stable. remain on zosyn, tolerating well. wbc 11 today, creat improved to 1.2. Blood cultures remain negative, cxr with LLL atelectasis. Results & Data Vital Signs (Past 12 Hours) Vital Signs Temp Pulse Pulse Resp BP Pulse Ox 08/29/18 12:05 70/55 L 94 08/29/18 11:52 36.5 C 61 18 78/57 L 08/29/18 08:00 96 H 08/29/18 07:47 36.4 C L 90 16 103/75 96 08/29/18 04:00 36.5 C 96 H 19 100/68 100 Laboratory Results Microbiology 08/25/18 20:09 Blood Blood Culture - Preliminary No growth to date. 08/25/18 19:54 Blood Blood Culture - Preliminary No growth to date.
--- NOTE | 2018-08-29 14:42 | Surgery Progress Note ---
Date of Service August 29, 2018 Assessment & Plan (1) Acute gastric ulcer with perforation: H/H stable-continue monitoring until MERE stops plan UGI tomorrow. can start clears if negative continue to increase activity. cont carafate /PPI will need EGD in a couple of weeks. Subjective awake/alert. no complaints. pain controlled. Physical Exam Physical Exam: alert. appears comfortable wound looks good. MERE still sanguinous. Results & Data Vital Signs (Past 12 Hours) Vital Signs Temp Pulse Pulse Resp BP Pulse Ox 08/29/18 12:05 70/55 L 94 08/29/18 11:52 36.5 C 61 18 78/57 L 08/29/18 08:00 96 H 08/29/18 07:47 36.4 C L 90 16 103/75 96 08/29/18 04:00 36.5 C 96 H 19 100/68 100
[2018-08-29] MEDS: LACTATED RINGER'S 1,000 ML IV SCH (16:46)
--- NOTE | 2018-08-29 17:46 | Hospitalist Progress Note ---
Date of Service August 29, 2018 Assessment & Plan (1) Hypotension: Clinically continues to improve, patient given IV fluids PRBC transfusion Severe sepsis/ Likely Hemorrhagic Shock/acute blood loss anemia Possible adrenal insufficiency given recent prednisone course S/P 4 units PRCBs Received stress dose of Decadron for possible adrenal insufficiency Required pressors, IV fluid resuscitation-ICU admission, appreciate input from ICU team Weaned off IV pressors, Patient continues to have hypotensive episodes systolic in 70s, with no complaint of dyspnea lightheadedness or shortness of breath, Given 500 cc inhaler bolus, if continues to have hypotensive episode, patient will be resumed with IV hydrocortisone/stress dose of steroids Steroid-induced hyperglycemia A1C: 5.9 Continue ISS Monitor BGs (2) Anemia: Acute blood loss anemia in the setting of acute perforated gastric ulcer, status post exploratory laparotomy, Required total 4 units of PRBC transfusion Hemoglobin remained stable at 10.5, continue to monitor Patient is continued with IV PPI, added Carafate Plan for barium swallow evaluation tomorrow (3) Acute gastric ulcer with perforation: Perforated gastric ulcer H/O GERD as per records--patient H/O PUD with NSAID intake -Aspirin /Naproxen Has been taking aspirin 325 mg daily for prior history of CVA presented with severe Abdominal pain, CT abdomen pelvis shows pneumoperitoneum, perforated gastric ulcer S/P emergent laparotomy, Oversew of perforated gastric ulcer, Jonn patch, Abdominal washout POD #3 Appreciate input from surgery Patient will need continued n.p.o. status, ordered for p.o. Carafate Plan for barium study on tomorrow to assess for healing of gastric ulcer (4) Hypoxia: Developed acute hypoxemic respiratory failure, hx of COPD given emphysematous changes on imaging Past tobacco abuse worsening of hypoxia possible secondary to severe sepsis, acute blood loss anemia, pericardial effusion Respiratory status improved cont supplemental 02 plan to wean off as tolerated, patient was not on home O2 PRN Neb tx , (5) Abdominal pain: Secondary to perforated gastric ulcer, management as outlined above Abdominal pain reasonably well controlled (6) Atrial ectopic tachycardia: Treat improved Due to combination of severe sepsis, perforated gastric ulcer, acute blood loss anemia, hypotension related to dehydration/volume loss/sepsis Echocardiogram shows moderate pericardial effusion without evidence of pericardial tamponade Hypotension treated with IV fluid resuscitation, received PRBC transfusion fusion acute blood loss anemia echocardiogram shows stable pericardial effusion Cardiology consulted-stable pericardial effusion, should not cause any physiological compromise, monitor observation no intervention needed Patient will need continued telemetry monitoring (7) CVA (cerebral vascular accident): Prior history of CVA, no neurological residual defects DC aspirin (was taking 325 mg p.o. daily) For gastric ulcer perforation, acute blood loss anemia (8) HTN (hypertension): Presented with hypotension secondary to severe sepsis, acute blood loss anemia, dehydration Received IV fluids, pressor supports blood pressure Continues to have hypotensive episode as symptomatic, given IV fluid bolus, Continue to monitor on telemetry, may start with IV Decadron stress dose (9) Pericardial effusion: Incidental finding with echocardiogram, Pericardial Effusion ECHO: EF: 65-70%; Moderate Pericardial effusion without evidence of Tamponade Patient reports of progressive shortness of breath dyspnea on exertion for past 1 month associated with generalized weakness fatigue No report of fever or chills Consulted [facility] in cardiology appreciate input, stable pericardial effusion without any evidence of tamponade, monitor clinically, no surgical intervention needed (10) Severe sepsis: Presented with severe sepsis secondary to perforated abdominal viscus/perforation of gastric ulcer/peritonitis Status post exploratory laparotomy with repair of perforation/ Required IV pressors briefly, received IV fluid resuscitation Continue broad-spectrum antibiotic with IV Zosyn Continue to monitor cultures ID evaluation requested patient input (11) PVD (peripheral vascular disease): PVD S/P surgery H/O CVA/cerebral aneurysm S/P Left Carotid endarterectomy Aspirin, Statin on hold -NPO/perforated gastric ulcer, acute blood loss anemia DVT prophylaxis: SCD and teds, Pharmacological anticoagulation avoided in the setting of perforated gastric ulcer, active blood loss anemia Disposition: Continue to monitor in telemetry PT OT evaluation requested Family medicine follow-up with Dr. Osei Garcia at [facility] Subjective awake/alert. no complaints. pain controlled. Patient found sitting on chair, MERE drain still having copious amount of serosanguineous drainage, Has not been able to pass gas, no bowel movement yet, no nausea vomiting Appreciate evaluation by surgery, plan for barium swallow evaluation tomorrow Review of Systems Review of Systems: All systems reviewed & are unremarkable except as noted in HPI & below Physical Exam Constitutional: WD/WN, vitals as above no acute distress Eyes: PERRL, conjunctivae normal, anicteric sclerae ENMT: external ear and nose normal, oropharynx normal Neck: trachea midline, no thyromegaly Respiratory: normal respiratory effort, lungs clear to auscultation Cardiovascular: RRR, no murmur, no edema Gastrointestinal (Abdomen): Status post exploratory laparotomy, surgical bandage intact, MERE drain with copious amount of serosanguineous drainage Musculoskeletal: no cyanosis or clubbing, extremities motor strength 5/5 Neurologic: PERRL, EOMI, accommodation nl, no face palsy, no dysarthria Psychiatric: A+Ox3, euthymic affect Results & Data Vital Signs (Past 12 Hours) Vital Signs Temp Pulse Pulse Resp BP BP Pulse Ox 08/29/18 16:57 169/70 H 08/29/18 16:31 36.6 C 73 18 100 08/29/18 12:05 70/55 L 94 08/29/18 11:52 36.5 C 61 18 78/57 L 08/29/18 08:00 96 H 08/29/18 07:47 36.4 C L 90 16 103/75 96 (1) Anemia Anemia type: other cause Other causes of anemia: acute posthemorrhagic Qualified Code(s): D62 - Acute posthemorrhagic anemia (2) Abdominal pain Abdominal location: generalized Qualified Code(s): R10.84 - Generalized abdo emanuel pain (3) Hypotension Hypotension type: hypotension due to hypovolemia Qualified Code(s): I95.89 - Other hypotension; E86.1 - Hypovolemia
[2018-08-30] MEDS: PIPERACILLIN/TAZOBACTAM 3.375 GM in DEXTROSE 5% 100 ML IV SCH ×3 (02:21→17:50)
[2018-08-30] MEDS: LACTATED RINGER'S 1,000 ML IV SCH ×2 (05:11→17:50)
[2018-08-30 06:52] LABS: Hematocrit (blood only) 32.2 % (37-47); Hemoglobin 10.5 g/dL (12.0-16.0); Mean Corpuscular Hgb Conc 32.6 g/dL (32-36); Mean Corpuscular Volume 88.5 fL (80-100); Mean Platelet Volume 8.8 fL (7.4-10.4); Platelet Count 200 K/uL (130-400); RDW Coefficient of Variation 15.4 % (11.5-14.5); RDW Standard Deviation 50.3 fL (36.4-46.3); Red Blood Count 3.64 M/uL (4.2-5.4); White Blood Count 9.65 K/uL (4.8-10.8)
[2018-08-30 07:22] LABS: BUN Creatinine Ratio 11.8 (10-20); Calcium 8.9 mg/dl (8.5-10.1); Creatinine Clr Calc Pharmacy 48.8 ml/min; Est GFR (African American) 68.2; Est GFR (Non-African American) 58.9; Potassium 3.3 mmol/L (3.5-5.1)
[2018-08-30] MEDS: PANTOprazole 40 MG in SYRINGE 0 ML IV SCH ×2 (07:24→20:22)
[2018-08-30] MEDS: SUCRALFATE 1 GM/10 ML UDC PO SCH ×4 (07:24→20:22)
[2018-08-30] MEDS: HYDROmorphone INJ 0.5 MG/0.5 ML SYR IV PRN ×3 (07:24→20:22)
[2018-08-30] MEDS: TIMOLOL MALEATE 0.25% OP SOLN 5 ML BTL OPL SCH (07:24)
--- NOTE | 2018-08-30 09:08 | Surgery Progress Note ---
Date of Service August 30, 2018 Assessment & Plan (1) Acute gastric ulcer with perforation: doing well clinically h/h stable for UGI today. if no leak, will start clears and slowly advance [facility] covering for weekend. Subjective pt seen. no new complaints. feeling well overall. Physical Exam Physical Exam: alert. nad abd: soft. wound looks good. MERE serosanguinous. Results & Data Vital Signs (Past 12 Hours) Vital Signs Temp Pulse Pulse Resp BP Pulse Ox 08/30/18 07:20 91/57 L 08/30/18 07:09 36.8 C 108 H 20 99 08/30/18 03:47 37.0 C 76 16 96/63 L 99 08/30/18 01:39 93 H 08/29/18 23:47 36.8 C 50 L 17 96/62 L 99
[2018-08-30] MEDS: ACETAMINOPHEN 65 ML IV PRN ×2 (09:11→23:44)
--- NOTE | 2018-08-30 11:43 | Fluoroscopy Report ---
FL upper GI series wo air HISTORY: 68 years-old Female check repair of perforated gastric ulcer follow-up study in a patient w ith history of prior gastric ulcer repair COMPARISON: CT abdomen and pelvis 08/25/2018 TECHNIQUE: 9 spot fluoroscopic images of the abdomen were obtained for a limited upper GI series util izing 0.9 seconds fluoroscopy time. FINDINGS: Optiray 300 oral contrast was administered orally to the patient. There is mild esophageal distention with moderate esophageal dysmotility. Contrast flows freely from the esophagus through the gastroeso phageal junction into the stomach which is prominently decompressed. Oral contrast then flows freely into the duodenum. No extravasation or stricturing. Midline skin leonila are noted along with surgica l drainage catheter. IMPRESSION: No contrast extravasation identified. The above report was generated using voice recognition software. It may contain grammatical, syntax o r spelling errors. Electronically signed by: Chiki Brown M.D. 08/30/2018 11:42 AM
[2018-08-30] MEDS: HYDROCORTISONE SOD 100 MG in SYRINGE 0 ML IV SCH ×3 (12:01→21:59)
--- NOTE | 2018-08-30 14:36 | Infectious Disease Progress Nt ---
Date of Service August 30, 2018 Assessment & Plan (1) Severe sepsis: would continue IV zosyn for now, will likely 14 days abx total. blood cultures remain negative, maintain IV abx for now as she is not eating. may be able to advance to po abx - likely Augmentin to complete course, will follow. (2) Acute gastric ulcer with perforation: Subjective blood cultures remain negative, tolerating zosyn for UGI today, if no leak will start clear liquids. afebrile. Results & Data Vital Signs (Past 12 Hours) Vital Signs Temp Pulse Pulse Resp BP BP Pulse Ox 08/30/18 12:16 36.6 C 50 L 19 189/79 H 95 08/30/18 08:00 94 H 08/30/18 07:20 91/57 L 08/30/18 07:09 36.8 C 108 H 20 99 08/30/18 03:47 37.0 C 76 16 96/63 L 99 Laboratory Results Microbiology 08/25/18 20:09 Blood Blood Culture - Preliminary No growth to date. 08/25/18 19:54 Blood Blood Culture - Preliminary No growth to date.
--- NOTE | 2018-08-30 15:17 | Hospitalist Progress Note ---
Date of Service August 30, 2018 Assessment & Plan (1) Hypotension: BP stabilized after initiating stress dose of IV hydrocorisone patient given IV fluids PRBC transfusion Severe sepsis/ Likely Hemorrhagic Shock/acute blood loss anemia Possible adrenal insufficiency given recent prednisone course S/P 4 units PRCBs Required pressors, IV fluid resuscitation-ICU admission, appreciate input from ICU team Weaned off IV pressors, Steroid-induced hyperglycemia A1C: 5.9 Continue ISS Monitor BGs (2) Anemia: Acute blood loss anemia in the setting of acute perforated gastric ulcer, status post exploratory laparotomy, Required total 4 units of PRBC transfusion Hemoglobin remained stable at 10.5, continue to monitor Patient is continued with IV PPI, added Carafate barium swallow evaluation shows no evidence of leak , appreciate input from surgery started on clears (3) Acute gastric ulcer with perforation: Perforated gastric ulcer H/O GERD as per records--patient H/O PUD with NSAID intake -Aspirin /Naproxen Has been taking aspirin 325 mg daily for prior history of CVA presented with severe Abdominal pain, CT abdomen pelvis shows pneumoperitoneum, perforated gastric ulcer S/P emergent laparotomy, Oversew of perforated gastric ulcer, Jonn patch, Abdominal washout POD #3 Appreciate input from surgery ordered for p.o. Carafate barium study shows: no extravasation of contrast pt started on clears , tolerating well (4) Hypoxia: Developed acute hypoxemic respiratory failure, hx of COPD given emphysematous changes on imaging Past tobacco abuse worsening of hypoxia possible secondary to severe sepsis, acute blood loss anemia, pericardial effusion Respiratory status improved cont supplemental 02 plan to wean off as tolerated, patient was not on home O2 PRN Neb tx , (5) Abdominal pain: Secondary to perforated gastric ulcer, management as outlined above Abdominal pain reasonably well controlled (6) Atrial ectopic tachycardia: resolved HR remains stable /rate controlled Due to combination of severe sepsis, perforated gastric ulcer, acute blood loss anemia, hypotension related to dehydration/volume loss/sepsis Echocardiogram shows moderate pericardial effusion without evidence of pericardial tamponade Hypotension treated with IV fluid resuscitation, received PRBC transfusion fusion acute blood loss anemia echocardiogram shows stable pericardial effusion Cardiology consulted-stable pericardial effusion, should not cause any physiolog ical compromise, monitor observation no intervention needed stable to be transferred to medical floor (7) CVA (cerebral vascular accident): Prior history of CVA, no neurological residual defects DC aspirin (was taking 325 mg p.o. daily) For gastric ulcer perforation, acute blood loss anemia (8) HTN (hypertension): Presented with hypotension secondary to severe sepsis, acute blood loss anemia, dehydration Received IV fluids, pressor supports blood pressure started on stress dose of IV decadron BP stable now (9) Pericardial effusion: Incidental finding with echocardiogram, Pericardial Effusion ECHO: EF: 65-70%; Moderate Pericardial effusion without evidence of Tamponade Patient reports of progressive shortness of breath dyspnea on exertion for past 1 month associated with generalized weakness fatigue No report of fever or chills Consulted [facility] in cardiology appreciate input, stable pericardial effusion without any evidence of tamponade, monitor clinically, no surgical intervention needed (10) Severe sepsis: Presented with severe sepsis secondary to perforated abdominal viscus/perforation of gastric ulcer/peritonitis Status post exploratory laparotomy with repair of perforation/ Required IV pressors briefly, received IV fluid resuscitation Continue broad-spectrum antibiotic with IV Zosyn Continue to monitor cultures ID evaluation requested patient input (11) PVD (peripheral vascular disease): PVD S/P surgery H/O CVA/cerebral aneurysm S/P Left Carotid endarterectomy Aspirin, Statin on hold -NPO/perforated gastric ulcer, acute blood loss anemia DVT prophylaxis: SCD and teds, Pharmacological anticoagulation avoided in the setting of perforated gastric ulcer, active blood loss anemia Disposition: aspirin /plavix D/geovanni due to perforated gastric ulcer /acute blood loss anemia Full code DVT prophylaxis SCD and teds no pharmacological anticoagulation due to above PT/Ot eval expected to be discharged home when medically stable Family medicine follow-up with Dr. Osei Garcia at [facility] Subjective feels much better today no complain of abdominal pain started on clears -tolerating well Physical Exam Constitutional: WD/WN, vitals as above no acute distress Eyes: PERRL, conjunctivae normal, anicteric sclerae ENMT: external ear and nose normal, oropharynx normal Neck: trachea midline, no thyromegaly Respiratory: normal respiratory effort, lungs clear to auscultation Cardiovascular: RRR, no murmur, no edema Gastrointestinal (Abdomen): s/p exp laparotomy , MERE drain present with serosanguinous drainage Musculoskeletal: no cyanosis or clubbing, extremities motor strength 5/5 Neurologic: PERRL, EOMI, accommodation nl, no face palsy, no dysarthria Psychiatric: A+Ox3, euthymic affect Results & Data Vital Signs (Past 12 Hours) Vital Signs Temp Pulse Pulse Resp BP BP Pulse Ox 08/30/18 15:05 36.8 C 52 L 19 89/62 L 99 08/30/18 12:16 36.6 C 50 L 19 189/79 H 95 08/30/18 08:00 94 H 08/30/18 07:20 91/57 L 08/30/18 07:09 36.8 C 108 H 20 99 08/30/18 03:47 37.0 C 76 16 96/63 L 99 (1) Anemia Anemia type: other cause Other causes of anemia: acute posthemorrhagic Qualified Code(s): D62 - Acute posthemorrhagic anemia (2) Abdominal pain Abdominal location: generalized Qualified Code(s): R10.84 - Generalized abdominal pain (3) Hypotension Hypotension type: hypotension due to hypovolemia Qualified Code(s): I95.89 - Other hypotension; E86.1 - Hypovolemia
[2018-08-30 15:21] LABS: Hematocrit (blood only) 33.4 % (37-47); Hemoglobin 10.9 g/dL (12.0-16.0)
[2018-08-30 15:30] LABS: INR 1.1 (0.9-1.1)
[2018-08-31] MEDS: PIPERACILLIN/TAZOBACTAM 3.375 GM in DEXTROSE 5% 100 ML IV SCH ×3 (02:00→17:46)
[2018-08-31] MEDS: HYDROCORTISONE SOD 100 MG in SYRINGE 0 ML IV SCH ×3 (05:26→20:14)
[2018-08-31] MEDS: HYDROmorphone INJ 0.5 MG/0.5 ML SYR IV PRN ×3 (05:26→17:46)
[2018-08-31 05:41] LABS: Hematocrit (blood only) 31.8 % (37-47); Hemoglobin 10.8 g/dL (12.0-16.0); Mean Corpuscular Volume 86.4 fL (80-100); Platelet Count 244 K/uL (130-400); RDW Standard Deviation 47.6 fL (36.4-46.3); Red Blood Count 3.68 M/uL (4.2-5.4); White Blood Count 6.81 K/uL (4.8-10.8)
[2018-08-31 06:19] LABS: BUN Creatinine Ratio 11.9 (10-20); Calcium 8.6 mg/dl (8.5-10.1); Creatinine Clr Calc Pharmacy 48.8 ml/min; Est GFR (African American) 68.2; Est GFR (Non-African American) 58.9; Potassium 3.1 mmol/L (3.5-5.1)
[2018-08-31] MEDS: SUCRALFATE 1 GM/10 ML UDC PO SCH ×4 (07:31→20:14)
[2018-08-31] MEDS: TIMOLOL MALEATE 0.25% OP SOLN 5 ML BTL OPL SCH (07:32)
[2018-08-31] MEDS: PANTOprazole 40 MG in SYRINGE 0 ML IV SCH ×2 (08:43→20:14)
--- NOTE | 2018-08-31 11:40 | Surgery Progress Note ---
Date of Service August 31, 2018 Assessment & Plan (1) Acute gastric ulcer with perforation: s/p gastric ulcer perforation repir POD#6 doing well Swallow showed no leak. Advance to full liquids today. Increase activity as tolerated. Subjective Feels OK - having a "tired day". No pain. No nausea. Tolerated clear liquids yesterday. + bowel movement/ flatus. Review of Systems Review of Systems: All systems reviewed & are unremarkable except as noted in HPI & below Physical Exam Constitutional: WD/WN, vitals as above Respiratory: normal respiratory effort, lungs clear to auscultation Cardiovascular: RRR, no murmur, no edema Gastrointestinal (Abdomen): normal bowel sounds, soft, nontender, no hepatosplenomegaly incision looks clean, MERE with serosanguinous drainage Results & Data Vital Signs (Past 12 Hours) Vital Signs Temp Pulse Resp BP Pulse Ox 08/31/18 07:45 36.4 C L 88 18 106/76 95
--- NOTE | 2018-08-31 16:30 | Hospitalist Progress Note ---
Date of Service August 31, 2018 Assessment & Plan (1) Hypotension: BP stabilized after initiating stress dose of IV hydrocorisone We will start to wean down Outpatient BP meds Lopressor resumed Random cortisol level 21/normal level at 9 AM sample Presented with severe sepsis/hypotension Severe sepsis/ Likely Hemorrhagic Shock/acute blood loss anemia Concern for adrenal insufficiency given recent prednisone course added stress dose of hydrocortisone- S/P 4 units PRCBs Required pressors, IV fluid resuscitation-ICU admission, appreciate input from ICU team Weaned off IV pressors, Patient has been doing well in medical surgical floor (2) Anemia: Has been stable at 10, no weakness of GI bleed Corrected, he is improving acute blood loss anemia in the setting of acute perforated gastric ulcer, status post exploratory laparotomy, Required total 4 units of PRBC transfusion Hemoglobin remained stable at 10.5, continue to monitor Patient is continued with IV PPI, added Carafate barium swallow evaluation shows no evidence of leak , appreciate input from surgery Diet advanced to clear liquid tolerating well (3) Acute gastric ulcer with perforation: diet advanced to full liquid by surgery today, tolerating wellPerforated gastric ulcer H/O GERD as per records--patient H/O PUD with NSAID intake -Aspirin /Naproxen Has been taking aspirin 325 mg daily for prior history of CVA presented with severe Abdominal pain, CT abdomen pelvis shows pneumoperitoneum, perforated gastric ulcer S/P emergent laparotomy, Oversew of perforated gastric ulcer, Jonn patch, Abdominal washout POD #3 Appreciate input from surgery ordered for p.o. Carafate barium study shows: no extravasation of contrast pt started on clears , tolerating well (4) Hypoxia: Resolved, in room air, no evidence of hypoxia Presented acute hypoxemic respiratory failure, possible secondary to severe sepsis, acute blood loss anemia, pericardial effusion Respiratory status improved (5) Abdominal pain: No complaint of abdominal pain, tolerating diet well (6) Atrial ectopic tachycardia: resolved HR remains stable /rate controlled Developed tachyarrhythmia due to combination of severe sepsis, perforated gastric ulcer, acute blood loss anemia, hypotension related to dehydratio n/volume loss/sepsis Echocardiogram shows moderate pericardial effusion without evidence of pericardial tamponade Hypotension treated with IV fluid resuscitation, received PRBC transfusion fusion acute blood loss anemia echocardiogram shows stable pericardial effusion Cardiology consulted-stable pericardial effusion, should not cause any physiological compromise, monitor observation no intervention needed (7) CVA (cerebral vascular accident): Prior history of CVA, no neurological residual defects DC aspirin (was taking 325 mg p.o. daily) We will continue to hold antiplatelets: Gastric ulcer perforation, acute blood loss anemia (8) HTN (hypertension): Hypotension resolved, patient started with home dose of Lopressor Presented with hypotension secondary to severe sepsis, acute blood loss anemia, dehydration Received IV fluids, pressor supports blood pressure Treated with IV stress dose Decadron (9) Pericardial effusion: Incidental finding with echocardiogram, Pericardial Effusion ECHO: EF: 65-70%; Moderate Pericardial effusion without evidence of Tamponade Patient reports of progressive shortness of breath dyspnea on exertion for past 1 month associated with generalized weakness fatigue No report of fever or chills Consulted [facility] in cardiology appreciate input, stable pericardial effusion without any evidence of tamponade, monitor clinically, no surgical intervention needed (10) Severe sepsis: Resolved Presented with severe sepsis secondary to perforated abdominal viscus/perforation of gastric ulcer/peritonitis Status post exploratory laparotomy with repair of perforation/ Required IV pressors briefly, received IV fluid resuscitation Treated with broad-spectrum antibiotic with IV Zosyn Continue to monitor cultures ID evaluation requested patient input (11) PVD (peripheral vascular disease): PVD S/P surgery H/O CVA/cerebral aneurysm S/P Left Carotid endarterectomy Aspirin, Statin on hold -NPO/perforated gastric ulcer, acute blood loss anemia DVT prophylaxis: SCD and teds, Pharmacological anticoagulation avoided in the setting of perforated gastric ulcer, active blood loss anemia Disposition: aspirin /plavix D/geovanni due to perforated gastric ulcer /acute blood loss anemia Full code DVT prophylaxis SCD and teds no pharmacological anticoagulation due to above PT/Ot eval expected to be discharged home when medically stable Family medicine follow-up with Dr. Osei Garcia at [facility] Subjective No hypoxia, not requiring any oxygen, feels much better, tolerating full liquid diet, no complaint of abdominal pain, afebrile, vitals stable Had 2 episode of liquid bowel movement today MERE drain continues to have serosanguineous drainage Physical Exam Constitutional: WD/WN, vitals as above no acute distress Eyes: PERRL, conjunctivae normal, anicteric sclerae ENMT: external ear and nose normal, oropharynx normal Neck: trachea midline, no thyromegaly Respiratory: normal respiratory effort, lungs clear to auscultation Cardiovascular: RRR, no murmur, no edema Gastrointestinal (Abdomen): Status post exploratory laparotomy, bandage intact, MERE drain present with serosanguineous drainage Musculoskeletal: no cyanosis or clubbing, extremities motor strength 5/5 Neurologic: PERRL, EOMI, accommodation nl, no face palsy, no dysarthria Psychiatric: A+Ox3, euthymic affect Results & Data Vital Signs (Past 12 Hours) Vital Signs Temp Pulse Resp BP Pulse Ox 08/31/18 15:05 36.3 C L 86 16 88/64 L 98 08/31/18 11:40 36.7 C 94 H 16 100/72 97 08/31/18 07:45 36.4 C L 88 18 106/76 95 (1) Anemia Anemia type: other cause Other causes of anemia: acute posthemorrhagic Qualified Code(s): D62 - Acute posthemorrhagic anemia (2) Abdominal pain Abdominal location: generalized Qualified Code(s): R10.84 - Generalized abdominal pain (3) Hypotension Hypotension type: hypotension due to hypovolemia Qualified Code(s): I95.89 - Other hypotension; E86.1 - Hypovolemia
[2018-08-31] MEDS ORDERED: POTASSIUM CHLORIDE 20 MEQ TABCR PO STA (16:32)
[2018-09-01] MEDS: PIPERACILLIN/TAZOBACTAM 3.375 GM in DEXTROSE 5% 100 ML IV SCH ×3 (02:37→18:21)
[2018-09-01] MEDS: SUCRALFATE 1 GM/10 ML UDC PO SCH ×4 (06:27→20:56)
[2018-09-01] MEDS: HYDROCORTISONE SOD 100 MG in SYRINGE 0 ML IV SCH (07:25)
[2018-09-01] MEDS: TIMOLOL MALEATE 0.25% OP SOLN 5 ML BTL OPL SCH (07:25)
[2018-09-01 07:59] LABS: Hematocrit (blood only) 31.8 % (37-47); Hemoglobin 10.6 g/dL (12.0-16.0)
[2018-09-01] MEDS: PANTOprazole 40 MG in SYRINGE 0 ML IV SCH (08:04)
[2018-09-01 08:24] LABS: BUN Creatinine Ratio 10.2 (10-20); Calcium 8.8 mg/dl (8.5-10.1); Creatinine Clr Calc Pharmacy 44.3 ml/min; Est GFR (African American) 60.7; Est GFR (Non-African American) 52.3; Magnesium 1.9 mg/dl (1.8-2.4); Potassium 3.3 mmol/L (3.5-5.1)
--- NOTE | 2018-09-01 10:18 | Surgery Progress Note ---
Date of Service September 01, 2018 Assessment & Plan (1) Acute gastric ulcer with perforation: s/p gastric ulcer perforation repir POD#7 doing well Swallow showed no leak. Advance to low fiber diet today Increase activity as tolerated. Still on oxygen intermittently - encouraged use of incentive spirometer. Subjective Pt is sitting in chair. Comfortable with minimal pain. Tolerated full liquids yesterday. Having loose bowel movements. No nausea. Review of Systems Review of Systems: All systems reviewed & are unremarkable except as noted in HPI & below Physical Exam Constitutional: WD/WN, vitals as above Respiratory: normal respiratory effort, lungs clear to auscultation Cardiovascular: RRR, no murmur, no edema Gastrointestinal (Abdomen): normal bowel sounds, soft, nontender, no hepatosplenomegaly (MERE drain with serosanguinous drainage, 560 cc last 24 hrs) Neurologic: moves all extremities and awake Results & Data Vital Signs (Past 12 Hours) Vital Signs Temp Pulse Resp BP Pulse Ox 09/01/18 07:15 36.6 C 97 H 16 110/80 92 08/31/18 23:36 36.5 C 52 L 18 110/75 98
[2018-09-01] MEDS: HYDROmorphone INJ 0.5 MG/0.5 ML SYR IV PRN ×2 (14:32→23:53)
--- NOTE | 2018-09-01 17:29 | Hospitalist Progress Note ---
Date of Service September 01, 2018 Assessment & Plan (1) Hypotension: BP stabilized after initiating stress dose of IV hydrocorisone IV hydrocortisone will be discontinued, will be started on p.o. prednisone today Outpatient BP meds Lopressor resumed Random cortisol level 21/normal level at 9 AM sample Presented with severe sepsis/hypotension Severe sepsis/ Likely hypotensive shock/acute blood loss anemia Concern for adrenal insufficiency given recent prednisone course added stress dose of hydrocortisone- S/P 4 units PRCBs Required pressors, IV fluid resuscitation-ICU admission, appreciate input from ICU team Weaned off IV pressors, Patient has been doing well in medical surgical floor Was initiated with stress dose of hydrocortisone, which was weaned off, transition to oral prednisone starting from tomorrow (2) Anemia: Has been stable at 10, no weakness of GI bleed Corrected, he is improving acute blood loss anemia in the setting of acute perforated gastric ulcer, status post exploratory laparotomy, Required total 4 units of PRBC transfusion Hemoglobin remained stable at 10.5, continue to monitor Patient is continued with IV PPI, added Carafate barium swallow evaluation shows no evidence of leak , appreciate input from surgery Diet advanced to solid, tolerating well (3) Acute gastric ulcer with perforation: diet advanced to full liquid by surgery today, tolerating wellPerforated gastric ulcer H/O GERD as per records--patient H/O PUD with NSAID intake -Aspirin /Naproxen Has been taking aspirin 325 mg daily for prior history of CVA presented with severe Abdominal pain, CT abdomen pelvis shows pneumoperitoneum, perforated gastric ulcer S/P emergent laparotomy, Oversew of perforated gastric ulcer, Jonn patch, Abdominal washout POD #3 Appreciate input from surgery ordered for p.o. Carafate barium study shows: no extravasation of contrast pt started on clears , tolerating well (4) Hypoxia: Regarding intermittent oxygen supplementation, possibly secondary to atelectasis, poor respiratory effort secondary to abdomen surgery Patient is encouraged to use incentive spirometry, increased activity as tolerated Presented acute hypoxemic respiratory failure, With combination of severe sepsis, acute blood loss anemia, pericardial effusion (5) Abdominal pain: No complaint of abdominal pain, tolerating diet well Surgical MERE drainage, slowing down, more serous drainage, minimum bleeding noted (6) Atrial ectopic tachycardia: resolved HR remains stable /rate controlled Developed tachyarrhythmia due to combination of severe sepsis, perforated gastric ulcer, acute blood loss anemia, hypotension related to dehydration/v olume loss/sepsis Echocardiogram shows moderate pericardial effusion without evidence of pericardial tamponade Hypotension treated with IV fluid resuscitation, received PRBC transfusion fusion acute blood loss anemia echocardiogram shows stable pericardial effusion Cardiology consulted-stable pericardial effusion, should not cause any physiological compromise, monitor observation no intervention needed (7) CVA (cerebral vascular accident): Prior history of CVA, no neurological residual defects DC aspirin (was taking 325 mg p.o. daily) continue to hold antiplatelets: Gastric ulcer perforation, acute blood loss anemia (8) HTN (hypertension): Hypotension resolved, patient started with home dose of Lopressor Presented with hypotension secondary to severe sepsis, acute blood loss anemia, dehydration Received IV fluids, pressor supports blood pressure Treated with IV stress dose Decadron Waiting down (9) Pericardial effusion: Incidental finding with echocardiogram, Pericardial Effusion ECHO: EF: 65-70%; Moderate Pericardial effusion without evidence of Tamponade Patient reports of progressive shortness of breath dyspnea on exertion for past 1 month associated with generalized weakness fatigue No report of fever or chills Consulted [facility] in cardiology appreciate input, stable pericardial effusion without any evidence of tamponade, monitor clinically, no surgical intervention needed (10) Severe sepsis: Resolved Presented with severe sepsis secondary to perforated abdominal viscus/perforation of gastric ulcer/peritonitis Status post exploratory laparotomy with repair of perforation/ Required IV pressors briefly, received IV fluid resuscitation Treated with broad-spectrum antibiotic with IV Zosyn Continue to monitor cultures ID evaluation requested patient input (11) PVD (peripheral vascular disease): PVD S/P surgery H/O CVA/cerebral aneurysm S/P Left Carotid endarterectomy Aspirin, Statin on hold -NPO/perforated gastric ulcer, acute blood loss anemia DVT prophylaxis: SCD and teds, Pharmacological anticoagulation avoided in the setting of perforated gastric ulcer, active blood loss anemia Disposition: aspirin /plavix D/geovanni due to perforated gastric ulcer /acute blood loss anemia Full code DVT prophylaxis SCD and teds no pharmacological anticoagulation due to above PT/Ot eval expected to be discharged home when medically stable Family medicine follow-up with Dr. Osei Garcia at [facility] Subjective Diet advanced to solid, tolerating well, One episode of loose bowel movements today No vaginal pain or nausea MERE drain has copious amount of serosanguineous drainage Requiring intermittent oxygen Physical Exam Constitutional: WD/WN, vitals as above no acute distress Eyes: PERRL, conjunctivae normal, anicteric sclerae ENMT: external ear and nose normal, oropharynx normal Neck: trachea midline, no thyromegaly Respiratory: normal respiratory effort, lungs clear to auscultation Cardiovascular: RRR, no murmur, no edema Gastrointestinal (Abdomen): Inspection/Auscultation: + abdomen abnormal to inspection (Status post expiratory laparotomy, MERE drain present) Musculoskeletal: no cyanosis or clubbing, extremities motor strength 5/5 Neurologic: PERRL, EOMI, accommodation nl, no face palsy, no dysarthria Psychiatric: A+Ox3, euthymic affect Results & Data Vital Signs (Past 12 Hours) Vital Signs Temp Pulse Resp BP Pulse Ox 09/01/18 16:09 36.5 C 57 L 16 93/64 L 99 09/01/18 07:15 36.6 C 97 H 16 110/80 92 (1) Anemia Anemia type: other cause Other causes of anemia: acute posthemorrhagic Qualified Code(s): D62 - Acute posthemorrhagic anemia (2) Abdominal pain Abdominal location: generalized Qualified Code(s): R10.84 - Generalized abdominal pain (3) Hypotension Hypotension type: hypotension due to hypovolemia Qualified Code(s): I95.89 - Other hypotension; E86.1 - Hypovolemia
[2018-09-01] MEDS: PANTOprazole 40 MG TAB PO SCH (20:56)
[2018-09-02] MEDS: PIPERACILLIN/TAZOBACTAM 3.375 GM in DEXTROSE 5% 100 ML IV SCH ×3 (01:59→18:33)
[2018-09-02] MEDS: SUCRALFATE 1 GM/10 ML UDC PO SCH ×4 (08:13→22:42)
--- NOTE | 2018-09-02 08:16 | Surgery Progress Note ---
Date of Service September 02, 2018 Assessment & Plan (1) Acute gastric ulcer with perforation: doing well from my standpoint taty diet keep MERE for now.. will likely d/c prior to d/c H/H stable d/c planning. rec d/c or carafate and PPI Subjective feeling well/no complaints. taty diet. denies pain Physical Exam Physical Exam: alert. nad abd: soft. wound looks good. MERE slowing down/serosanguinous. Results & Data Vital Signs (Past 12 Hours) Vital Signs Temp Pulse Resp BP Pulse Ox 09/02/18 07:06 36.6 C 81 16 110/80 99 09/01/18 23:29 36.3 C L 95 H 18 125/91 98
[2018-09-02] MEDS: PANTOprazole 40 MG TAB PO SCH ×2 (08:47→22:42)
[2018-09-02] MEDS: predniSONE 10 MG TABLET PO SCH (08:48)
[2018-09-02] MEDS: TIMOLOL MALEATE 0.25% OP SOLN 5 ML BTL OPL SCH (08:48)
[2018-09-02] MEDS: HYDROmorphone INJ 0.5 MG/0.5 ML SYR IV PRN ×2 (09:45→18:33)
--- NOTE | 2018-09-02 10:54 | Infectious Disease Progress Nt ---
Date of Service September 02, 2018 Assessment & Plan (1) Severe sepsis: would continue IV zosyn for now, will likely 14 days abx total. blood cultures remain negative, maintain IV abx for now as she is not eating. may be able to advance to po abx - likely Augmentin to complete course, will follow. (2) Acute gastric ulcer with perforation: Subjective oob to chair on my exam, eating, not full diet yet but tolerating well. Denies f/c. tolerating abx, remains on zosyn. blood cultures negative and final. wbc improved. had dressing changed earlier today, tolerated well. denies any bleeding or drainage. no abd pain, no n/v/d. no cp, sob, cough. wbc 6. Review of Systems Review of Systems: All systems reviewed & are unremarkable except as noted in HPI & below Physical Exam Constitutional: WD/WN, vitals as above Eyes: PERRL, conjunctivae normal, anicteric sclerae ENMT: external ear and nose normal, oropharynx normal Neck: normal visual inspection Respiratory: normal respiratory effort, lungs clear to auscultation Cardiovascular: RRR, no murmur, no edema Gastrointestinal (Abdomen): Inspection/Auscultation: abdomen normal to inspection; abdomen not distended Percussion/Palpation: + abdomen tender and abdomen soft; abdomen not rigid Musculoskeletal: no cyanosis or clubbing, extremities motor strength 5/5 Skin: no rashes, warm and dry Psychiatric: A+Ox3, euthymic affect Results & Data Vital Signs (Past 12 Hours) Vital Signs Temp Pulse Resp BP Pulse Ox 09/02/18 07:06 36.6 C 81 16 110/80 99 09/01/18 23:29 36.3 C L 95 H 18 125/91 98 Laboratory Results Microbiology 08/25/18 20:09 Blood Blood Culture - Final No growth 08/25/18 19:54 Blood Blood Culture - Final No growth
--- NOTE | 2018-09-02 17:00 | Hospitalist Progress Note ---
Date of Service September 02, 2018 Assessment & Plan (1) Hypotension: BP stabilized after initiating stress dose of IV hydrocorisone IV hydrocortisone will be discontinued, will be started on p.o. prednisone today Outpatient BP meds Lopressor resumed Random cortisol level 21/normal level at 9 AM sample Presented with severe sepsis/hypotension Severe sepsis/ Likely hypotensive shock/acute blood loss anemia Concern for adrenal insufficiency given recent prednisone course added stress dose of hydrocortisone- S/P 4 units PRCBs Required pressors, IV fluid resuscitation-ICU admission, appreciate input from ICU team Weaned off IV pressors, Patient has been doing well in medical surgical floor Was initiated with stress dose of hydrocortisone, which was weaned off, transition to oral prednisone starting from tomorrow (2) Anemia: Has been stable at 10, no weakness of GI bleed Corrected, he is improving acute blood loss anemia in the setting of acute perforated gastric ulcer, status post exploratory laparotomy, Required total 4 units of PRBC transfusion Hemoglobin remained stable at 10.5, continue to monitor Patient is continued with IV PPI, added Carafate barium swallow evaluation shows no evidence of leak , appreciate input from surgery Diet advanced to solid, tolerating well (3) Acute gastric ulcer with perforation: diet advanced to full liquid by surgery today, tolerating wellPerforated gastric ulcer H/O GERD as per records--patient H/O PUD with NSAID intake -Aspirin /Naproxen Has been taking aspirin 325 mg daily for prior history of CVA presented with severe Abdominal pain, CT abdomen pelvis shows pneumoperitoneum, perforated gastric ulcer S/P emergent laparotomy, Oversew of perforated gastric ulcer, Jonn patch, Abdominal washout POD #3 Appreciate input from surgery ordered for p.o. Carafate barium study shows: no extravasation of contrast pt started on clears , tolerating well (4) Hypoxia: Regarding intermittent oxygen supplementation, possibly secondary to atelectasis, poor respiratory effort secondary to abdomen surgery Patient is encouraged to use incentive spirometry, increased activity as tolerated Presented acute hypoxemic respiratory failure, With combination of severe sepsis, acute blood loss anemia, pericardial effusion (5) Abdominal pain: No complaint of abdominal pain, tolerating diet well Surgical MERE drainage, slowing down, more serous drainage, minimum bleeding noted (6) Atrial ectopic tachycardia: resolved HR remains stable /rate controlled Developed tachyarrhythmia due to combination of severe sepsis, perforated gastric ulcer, acute blood loss anemia, hypotension related to dehydration/v olume loss/sepsis Echocardiogram shows moderate pericardial effusion without evidence of pericardial tamponade Hypotension treated with IV fluid resuscitation, received PRBC transfusion fusion acute blood loss anemia echocardiogram shows stable pericardial effusion Cardiology consulted-stable pericardial effusion, should not cause any physiological compromise, monitor observation no intervention needed (7) CVA (cerebral vascular accident): Prior history of CVA, no neurological residual defects DC aspirin (was taking 325 mg p.o. daily) continue to hold antiplatelets: Gastric ulcer perforation, acute blood loss anemia (8) HTN (hypertension): Hypotension resolved, patient started with home dose of Lopressor Presented with hypotension secondary to severe sepsis, acute blood loss anemia, dehydration Received IV fluids, pressor supports blood pressure Treated with IV stress dose Decadron Waiting down (9) Pericardial effusion: Incidental finding with echocardiogram, Pericardial Effusion ECHO: EF: 65-70%; Moderate Pericardial effusion without evidence of Tamponade Patient reports of progressive shortness of breath dyspnea on exertion for past 1 month associated with generalized weakness fatigue No report of fever or chills Consulted [facility] in cardiology appreciate input, stable pericardial effusion without any evidence of tamponade, monitor clinically, no surgical intervention needed (10) Severe sepsis: Resolved Presented with severe sepsis secondary to perforated abdominal viscus/perforation of gastric ulcer/peritonitis Status post exploratory laparotomy with repair of perforation/ Required IV pressors briefly, received IV fluid resuscitation Treated with broad-spectrum antibiotic with IV Zosyn Continue to monitor cultures ID evaluation requested patient input (11) PVD (peripheral vascular disease): PVD S/P surgery H/O CVA/cerebral aneurysm S/P Left Carotid endarterectomy Aspirin, Statin on hold -NPO/perforated gastric ulcer, acute blood loss anemia DVT prophylaxis: SCD and teds, Pharmacological anticoagulation avoided in the setting of perforated gastric ulcer, active blood loss anemia Disposition: aspirin /plavix D/geovanni due to perforated gastric ulcer /acute blood loss anemia Full code DVT prophylaxis SCD and teds no pharmacological anticoagulation due to above PT/Ot eval expected to be discharged home when medically stable Family medicine follow-up with Dr. Osei Garcia at [facility] Subjective oob to chair on my exam, eating, not full diet yet but tolerating well. Denies f/c. tolerating abx, remains on zosyn. blood cultures negative and final. wbc improved. had dressing changed earlier today, tolerated well. denies any bleedi ng or drainage. no abd pain, no n/v/d. no cp, sob, cough. wbc 6. Physical Exam Constitutional: WD/WN, vitals as above no acute distress Eyes: PERRL, conjunctivae normal, anicteric sclerae ENMT: external ear and nose normal, oropharynx normal Neck: trachea midline, no thyromegaly Respiratory: normal respiratory effort, lungs clear to auscultation Cardiovascular: RRR, no murmur, no edema Gastrointestinal (Abdomen): Inspection/Auscultation: + abdomen abnormal to inspection (Status post expiratory laparotomy, MERE drain present) Musculoskeletal: no cyanosis or clubbing, extremities motor strength 5/5 Neurologic: PERRL, EOMI, accommodation nl, no face palsy, no dysarthria Psychiatric: A+Ox3, euthymic affect Results & Data Vital Signs (Past 12 Hours) Vital Signs Temp Pulse Resp BP BP Pulse Ox 09/02/18 15:13 76/59 L 09/02/18 14:44 36.8 C 85 16 162/79 H 92 09/02/18 07:06 36.6 C 81 16 110/80 99 (1) Anemia Anemia type: other cause Other causes of anemia: acute posthemorrhagic Qualified Code(s): D62 - Acute posthemorrhagic anemia (2) Abdominal pain Abdominal location: generalized Qualified Code(s): R10.84 - Generalized abdominal pain (3) Hypotension Hypotension type: hypotension due to hypovolemia Qualified Code(s): I95.89 - Other hypotension; E86.1 - Hypovolemia
[2018-09-02] MEDS: ACETAMINOPHEN 65 ML IV PRN (23:22)
[2018-09-03] MEDS: PIPERACILLIN/TAZOBACTAM 3.375 GM in DEXTROSE 5% 100 ML IV SCH ×2 (01:30→10:29)
[2018-09-03] MEDS: ACETAMINOPHEN 65 ML IV PRN ×2 (05:57→13:34)
--- NOTE | 2018-09-03 08:36 | Surgery Progress Note ---
Date of Service September 03, 2018 Assessment & Plan (1) Acute gastric ulcer with perforation: doing well from surgical standpoint remove MERE prior to d/c Rx for carafate and PPI written f/u next week, outpatient EGD in about [address] Hughes as above. doing well from our standpoint and ready for d/c when ok with primary service can d/c MERE prior to d/c f/u with me in 1 week. Subjective tolerating diet, some incision discomfort this morning Physical Exam Gastrointestinal (Abdomen): Inspection/Auscultation: + abdominal surgical drain present (90 cc serosang); abdomen not distended Percussion/Palpation: abdomen soft Results & Data Vital Signs (Past 12 Hours) Vital Signs Temp Pulse Pulse Resp BP Pulse Ox 09/03/18 07:10 36.2 C L 77 16 114/84 96 09/02/18 23:24 36.4 C L 82 17 88/75 L 100
[2018-09-03] MEDS: predniSONE 10 MG TABLET PO SCH (08:45)
[2018-09-03] MEDS: TIMOLOL MALEATE 0.25% OP SOLN 5 ML BTL OPL SCH (08:45)
[2018-09-03] MEDS: PANTOprazole 40 MG TAB PO SCH ×2 (08:45→20:24)
[2018-09-03] MEDS: SUCRALFATE 1 GM/10 ML UDC PO SCH ×4 (08:45→20:23)
[2018-09-03 18:53] LABS: Hematocrit (blood only) 37.2 % (37-47); Hemoglobin 12.5 g/dL (12.0-16.0)
[2018-09-03 19:16] LABS: BUN Creatinine Ratio 11.3 (10-20); Calcium 8.6 mg/dl (8.5-10.1); Creatinine Clr Calc Pharmacy 44.7 ml/min; Est GFR (African American) 61.3; Est GFR (Non-African American) 52.9; Potassium 2.7 mmol/L (3.5-5.1)
--- NOTE | 2018-09-03 19:23 | Hospitalist Progress Note ---
Date of Service September 03, 2018 Assessment & Plan (1) Hypotension: BP stabilized after initiating stress dose of IV hydrocorisone IV hydrocortisone will be discontinued, will be started on p.o. prednisone today Outpatient BP meds Lopressor resumed Random cortisol level 21/normal level at 9 AM sample Presented with severe sepsis/hypotension Severe sepsis/ Likely hypotensive shock/acute blood loss anemia Concern for adrenal insufficiency given recent prednisone course added stress dose of hydrocortisone- S/P 4 units PRCBs Required pressors, IV fluid resuscitation-ICU admission, appreciate input from ICU team Weaned off IV pressors, Patient has been doing well in medical surgical floor Was initiated with stress dose of hydrocortisone, which was weaned off, transition to oral prednisone starting from tomorrow (2) Anemia: Has been stable at 10, no weakness of GI bleed Corrected, he is improving acute blood loss anemia in the setting of acute perforated gastric ulcer, status post exploratory laparotomy, Required total 4 units of PRBC transfusion Hemoglobin remained stable at 10.5, continue to monitor Patient is continued with IV PPI, added Carafate barium swallow evaluation shows no evidence of leak , appreciate input from surgery Diet advanced to solid, tolerating well (3) Acute gastric ulcer with perforation: diet advanced to full liquid by surgery today, tolerating wellPerforated gastric ulcer H/O GERD as per records--patient H/O PUD with NSAID intake -Aspirin /Naproxen Has been taking aspirin 325 mg daily for prior history of CVA presented with severe Abdominal pain, CT abdomen pelvis shows pneumoperitoneum, perforated gastric ulcer S/P emergent laparotomy, Oversew of perforated gastric ulcer, Jonn patch, Abdominal washout POD #3 Appreciate input from surgery ordered for p.o. Carafate barium study shows: no extravasation of contrast pt started on clears , tolerating well (4) Hypoxia: Regarding intermittent oxygen supplementation, possibly secondary to atelectasis, poor respiratory effort secondary to abdomen surgery Patient is encouraged to use incentive spirometry, increased activity as tolerated Presented acute hypoxemic respiratory failure, With combination of severe sepsis, acute blood loss anemia, pericardial effusion (5) Abdominal pain: No complaint of abdominal pain, tolerating diet well Surgical AMELIA drainage, slowing down, more serous drainage, minimum bleeding noted (6) Atrial ectopic tachycardia: resolved HR remains stable /rate controlled Developed tachyarrhythmia due to combination of severe sepsis, perforated gastric ulcer, acute blood loss anemia, hypotension related to dehydration/v olume loss/sepsis Echocardiogram shows moderate pericardial effusion without evidence of pericardial tamponade Hypotension treated with IV fluid resuscitation, received PRBC transfusion fusion acute blood loss anemia echocardiogram shows stable pericardial effusion Cardiology consulted-stable pericardial effusion, should not cause any physiological compromise, monitor observation no intervention needed (7) CVA (cerebral vascular accident): Prior history of CVA, no neurological residual defects DC aspirin (was taking 325 mg p.o. daily) continue to hold antiplatelets: Gastric ulcer perforation, acute blood loss anemia (8) HTN (hypertension): Hypotension resolved, patient started with home dose of Lopressor Presented with hypotension secondary to severe sepsis, acute blood loss anemia, dehydration Received IV fluids, pressor supports blood pressure Treated with IV stress dose Decadron Waiting down (9) Pericardial effusion: Incidental finding with echocardiogram, Pericardial Effusion ECHO: EF: 65-70%; Moderate Pericardial effusion without evidence of Tamponade Patient reports of progressive shortness of breath dyspnea on exertion for past 1 month associated with generalized weakness fatigue No report of fever or chills Consulted [facility] in cardiology appreciate input, stable pericardial effusion without any evidence of tamponade, monitor clinically, no surgical intervention needed (10) Severe sepsis: Resolved Presented with severe sepsis secondary to perforated abdominal viscus/perforation of gastric ulcer/peritonitis Status post exploratory laparotomy with repair of perforation/ Required IV pressors briefly, received IV fluid resuscitation Treated with broad-spectrum antibiotic with IV Zosyn Continue to monitor cultures ID evaluation requested patient input (11) PVD (peripheral vascular disease): PVD S/P surgery H/O CVA/cerebral aneurysm S/P Left Carotid endarterectomy Aspirin, Statin on hold -NPO/perforated gastric ulcer, acute blood loss anemia DVT prophylaxis: SCD and teds, Pharmacological anticoagulation avoided in the setting of perforated gastric ulcer, active blood loss anemia Disposition: aspirin /plavix D/geovanni due to perforated gastric ulcer /acute blood loss anemia Full code DVT prophylaxis SCD and teds no pharmacological anticoagulation due to above PT/Ot eval expected to be discharged home when medically stable Family medicine follow-up with Dr. Osei Garcia at [facility] (formerly [facility]3] Subjective tolerating solid diet well no fever or chills amelia drain has copious amount of serosanguinous drainage Physical Exam Constitutional: WD/WN, vitals as above no acute distress Eyes: PERRL, conjunctivae normal, anicteric sclerae ENMT: external ear and nose normal, oropharynx normal Neck: trachea midline, no thyromegaly Respiratory: normal respiratory effort, lungs clear to auscultation Cardiovascular: RRR, no murmur, no edema Gastrointestinal (Abdomen): Inspection/Auscultation: + abdomen abnormal to inspection (Status post expiratory laparotomy, AMELIA drain present) Musculoskeletal: no cyanosis or clubbing, extremities motor strength 5/5 Neurologic: PERRL, EOMI, accommodation nl, no face palsy, no dysarthria Psychiatric: A+Ox3, euthymic affect Results & Data Vital Signs (Past 12 Hours) Vital Signs Temp Pulse Resp BP Pulse Ox 09/03/18 15:44 36.6 C 80 20 98/71 L 100 09/03/18 13:20 100 (1) Anemia Anemia type: other cause Other causes of anemia: acute posthemorrhagic Qu alified Code(s): D62 - Acute posthemorrhagic anemia (2) Abdominal pain Abdominal location: generalized Qualified Code(s): R10.84 - Generalized abdominal pain (3) Hypotension Hypotension type: hypotension due to hypovolemia Qualified Code(s): I95.89 - Other hypotension; E86.1 - Hypovolemia
[2018-09-03] MEDS: ACETAMINOPHEN 325 MG TAB PO PRN (21:50)
[2018-09-03] MEDS ORDERED: HYDROmorphone INJ 0.5 MG/0.5 ML SYR IV STA (23:44)
[2018-09-04 06:17] LABS: Hematocrit (blood only) 35.9 % (37-47); Hemoglobin 11.8 g/dL (12.0-16.0)
[2018-09-04 06:56] LABS: Calcium 8.3 mg/dl (8.5-10.1); Creatinine Clr Calc Pharmacy 41.2 ml/min; Est GFR (African American) 55.6; Potassium 2.9 mmol/L (3.5-5.1)
[2018-09-04] MEDS ORDERED: HYDROmorphone INJ 0.5 MG/0.5 ML SYR IV STA (07:55)
[2018-09-04] MEDS: SUCRALFATE 1 GM/10 ML UDC PO SCH ×4 (07:58→20:23)
[2018-09-04] MEDS: predniSONE 10 MG TABLET PO SCH (07:59)
[2018-09-04] MEDS: TIMOLOL MALEATE 0.25% OP SOLN 5 ML BTL OPL SCH (07:59)
[2018-09-04] MEDS: PANTOprazole 40 MG TAB PO SCH ×2 (07:59→20:23)
--- NOTE | 2018-09-04 08:25 | Surgery Progress Note ---
Date of Service September 04, 2018 Assessment & Plan (1) Acute gastric ulcer with perforation: doing well from my standpoint and could be d/c'd anytime rec home on PPI and carafate. no nsaids. ( coated asa in absolutely necessary for stroke prophylaxis) instructed on use and what to avoid MERE now reactive fluid. should be removed prior to d/c to prevent abdominal infection. H/H stable. f/u with me in 1 week. Subjective doing well. still occ sporadic abdominal discomfort near incision. no n/v. taty diet. Physical Exam Physical Exam: alert. nad abd: soft. wound c/d/i. no sign of infection. MERE with serous fluid now/minimal blood. Results & Data Vital Signs (Past 12 Hours) Vital Signs Temp Pulse Pulse Resp BP Pulse Ox 09/04/18 07:32 36.5 C 88 18 97/79 L 09/03/18 22:55 36.2 C L 55 L 18 115/89 97
[2018-09-04] MEDS: ACETAMINOPHEN 325 MG TAB PO PRN (13:11)
--- NOTE | 2018-09-04 13:54 | Hospitalist Progress Note ---
Date of Service September 04, 2018 Assessment & Plan (1) Hypokalemia: -Replete, likely secondary to drainage -Monitor (2) Hypotension: Improved, BP still low though in 90s S/P Severe sepsis with hypotensive shock/acute blood loss anemia S/P IV Hydrocortisone - Discontinued on 09/03/18 (concerned about adrenal insufficiency given recent prednisone course) --> Started on prednisone 10 mg daily. However with gastric ulcer and short course of IV hydrocortisone will discontinue Prednisone as will not need taper -On lopressor with holding parameters -Random cortisol level - 21, 9 AM sample- normal S/P 4 units PRCBs Required pressors, IV fluid resuscitation-ICU admission, appreciate input from ICU team Weaned off IV pressors, (3) Anemia: Acute blood loss anemia in setting of acute perforated gastric ulcer status post exploratory laparotomy -Status post 4 units of packed red blood cell transfusion since admission -No more episodes of bleeding -Monitor H&H Patient is continued with IV PPI, added Carafate barium swallow evaluation shows no evidence of leak , appreciate input from surgery Diet advanced to s (4) Acute gastric ulcer with perforation: HX OF GERD per records. Hx of PUD with NSAID intake- Aspirin/Naproxen. On ASA 325 mg daily for CVA. Presented with severe abd pain, CT abd/pelvis-pneumoperitoneum, perforated gastric ulcer -S/P emergent laparotomy, Oversew of perforated gastric ulcer, Jonn patch, Abdominal washout on 08/31/18 -Barium study - no extravasation of contrast -Tolerating solid diet well -S/P IV PPI. On protonix BID and sucralfate -Appreciate surgical inputs (5) Hypoxia: Regarding intermittent oxygen supplementation, possibly secondary to atelectasis, poor respiratory effort secondary to abdomen surgery Patient is encouraged to use incentive spirometry, increased activity as tolerated -Wean as tolerated Presented acute hypoxemic respiratory failure, With combination of severe sepsis, acute blood loss anemia, pericardial effusion (6) Abdominal pain: -No complaint of abdominal pain, tolerating diet well -Surgical MERE drainage, slowing down, more serous drainage, minimum bleeding noted. (7) Atrial ectopic tachycardia: Resolved HR remains stable /rate controlled Developed tachyarrhythmia due to combination of severe sepsis, perforated gastric ulcer, acute blood loss anemia, hypotension related to dehydration/volume loss/sepsis Echocardiogram shows moderate pericardial effusion without evidence of pericardial tamponade Hypotension treated with IV fluid resuscitation, received PRBC transfusion fusion acute blood loss anemia echocardiogram shows stable pericardial effusion Cardiology consulted-stable pericardial effusion, should not cause any physiological compromise, monitor observation no intervention needed (8) CVA (cerebral vascular accident): -Prior history of CVA, no neurological residual defects -DC aspirin (was taking 325 mg p.o. daily) -continue to hold antiplatelets: Gastric ulcer perforation, acute blood loss anemia (9) HTN (hypertension): Hypotension resolved, patient started with home dose of Lopressor (10) Pericardial effusion: PERICARDIAL EFFUSION- Incidental finding with Echocardiogram Pericardial Effusion ECHO: EF: 65-70%; Moderate Pericardial effusion without evidence of Tamponade Patient reports of progressive SOB, dyspnea on exertion for past 1 month associated with generalized weakness fatigue. Consulted Surinder in cardiology appreciate input, stable pericardial effusion without any evidence of tamponade, monitor clinically, no surgical intervention needed (11) Severe sepsis: SEVERE SEPSIS/SEPTIC SHOCK- Resolved Presented with severe sepsis secondary to perforated abdominal viscus/perforation of gastric ulcer/peritonitis -Status post exploratory laparotomy with repair of perforation/ -Required IV pressors briefly, received IV fluid resuscitation -Treated with broad-spectrum antibiotic with IV Zosyn- completed rx (12) PVD (peripheral vascular disease): PVD S/P surgery H/O CVA/cerebral aneurysm S/P Left Carotid endarterectomy Aspirin, Statin on hold -NPO/perforated gastric ulcer, acute blood loss anemia FULL CODE DVT prophylaxis: SCD and teds, Pharmacological anticoagulation avoided in the setting of perforated gastric ulcer, active blood loss anemia Disposition: Medical mx in progress Family medicine follow-up with Dr. Osei Garcia at [facility] Subjective Patient is tolerating regular diet Did have significant abdominal pain today morning, received tramadol MERE drain has copious amount of serosanguinous drainage No fever, chills Physical Exam Physical Exam: GENERAL- AAOX3, No acute distress NECK- Supple, no JVD LUNGS- Air entry bilaterally equal. No rales, rhonchi, crackles, wheezes heard. HEART- Regular rate and rhythm. No murmurs ABDOMEN- MERE DRAIN with copious serosanguineous discharge, Soft, non tender, non distended, Bowel sounds heard. EXTREMITIES- Good peripheral pulses, no edema Results & Data Vital Signs (Past 12 Hours) Vital Signs Temp Pulse Resp BP 09/04/18 07:32 36.5 C 88 18 97/79 L (1) Anemia Anemia type: other cause Other causes of anemia: acute posthemorrhagic Qualified Code(s): D62 - Acute posthemorrhagic anemia (2) Abdominal pain Abdominal location: generalized Qualified Code(s): R10.84 - Generalized abdominal pain (3) Hypotension Hypotension type: hypotension due to hypovolemia Qualified Code(s): I95.89 - Other hypotension; E86.1 - Hypovolemia
[2018-09-04] MEDS ORDERED: POTASSIUM CHLORIDE 20 MEQ TABCR PO SCH (14:00)
[2018-09-04] MEDS: TRAMADOL HCL 50 MG TABLET PO PRN (16:35)
[2018-09-05 07:39] LABS: Hemoglobin 11.9 g/dL (12.0-16.0)
[2018-09-05 08:03] LABS: BUN Creatinine Ratio 10.9 (10-20); Calcium 8.3 mg/dl (8.5-10.1); Creatinine Clr Calc Pharmacy 44.3 ml/min; Est GFR (African American) 60.7; Est GFR (Non-African American) 52.3; Potassium 2.4 mmol/L (3.5-5.1)
[2018-09-05] MEDS: TIMOLOL MALEATE 0.25% OP SOLN 5 ML BTL OPL SCH (08:27)
[2018-09-05] MEDS: SUCRALFATE 1 GM/10 ML UDC PO SCH ×4 (08:27→20:45)
[2018-09-05] MEDS: PANTOprazole 40 MG TAB PO SCH ×2 (08:27→20:45)
[2018-09-05] MEDS: POTASSIUM CHLORIDE 20 MEQ TABCR PO SCH ×2 (08:47→10:29)
--- NOTE | 2018-09-05 11:56 | Surgery Progress Note ---
Date of Service September 05, 2018 Assessment & Plan (1) Acute gastric ulcer with perforation: doing well ok for d/c. stay on carafate and PPI will d/c MERE drain f/u with me in one week. Subjective no complaints. feeling well. ready to go home Physical Exam Physical Exam: alert. nad abd: soft. wound looks good. MERE with all serous fluid at this point. Results & Data Vital Signs (Past 12 Hours) Vital Signs Temp Pulse Resp BP Pulse Ox 09/05/18 07:00 36.5 C 76 18 104/74 92
[2018-09-05] MEDS: TRAMADOL HCL 50 MG TABLET PO PRN (12:05)
--- NOTE | 2018-09-05 12:17 | Hospitalist Progress Note ---
Date of Service September 05, 2018 Assessment & Plan (1) Hypokalemia: -Secondary to drainage -Replete and repeat at 3 PM -Monitor (2) Acute gastric ulcer with perforation: HX OF GERD per records. Hx of PUD with NSAID intake- Aspirin/Naproxen. On ASA 325 mg daily for CVA. Presented with severe abd pain, CT abd/pelvis-pneumoperitoneum, perforated gastric ulcer -S/P emergent laparotomy, Oversew of perforated gastric ulcer, Jonn patch, Abdominal washout on 08/31/18 -Barium study - no extravasation of contrast -Tolerating solid diet well -S/P IV PPI. On protonix BID and sucralfate -Appreciate surgical inputs (3) Hypotension: Improved, BP still low though in 90s S/P Severe sepsis with hypotensive shock/acute blood loss anemia S/P IV Hydrocortisone - Discontinued on 09/03/18 (concerned about adrenal insuffi ciency given recent prednisone course) --> Started on prednisone 10 mg daily. However with gastric ulcer and short course of IV hydrocortisone will discontinue Prednisone as will not need taper -On lopressor with holding parameters -Random cortisol level - 21, 9 AM sample- normal S/P 4 units PRBCs Required pressors, IV fluid resuscitation-ICU admission, appreciate input from ICU team Weaned off IV pressors, (4) Anemia: Acute blood loss anemia in setting of acute perforated gastric ulcer status post exploratory laparotomy -Status post 4 units of packed red blood cell transfusion since admission -No more episodes of bleeding -Monitor H & H Patient is continued with IV PPI, added Carafate barium swallow evaluation shows no evidence of leak , appreciate input from surgery Diet advanced to s (5) Hypoxia: RESOLVED Regarding intermittent oxygen supplementation, possibly secondary to atelectasi s, poor respiratory effort secondary to abdomen surgery. Patient is encouraged to use incentive spirometry, increased activity as tolerated -Not on oxygen (6) Abdominal pain: -No complaint of abdominal pain, tolerating diet well -Surgical MERE drainage, slowing down, more serous drainage, minimum bleeding noted. (7) Atrial ectopic tachycardia: Resolved HR remains stable /rate controlled Developed tachyarrhythmia due to combination of severe sepsis, perforated gastric ulcer, acute blood loss anemia, hypotension related to dehydration/volume loss/sepsis Echocardiogram shows moderate pericardial effusion without evidence of pericardial tamponade Hypotension treated with IV fluid resuscitation, received PRBC transfusion fusion acute blood loss anemia Echocardiogram shows stable pericardial effusion Cardiology consulted-stable pericardial effusion, should not cause any physiological compromise, monitor observation no intervention needed (8) CVA (cerebral vascular accident): -Prior history of CVA, no neurological residual defects -DC aspirin (was taking 325 mg p.o. daily) -continue to hold antiplatelets: Gastric ulcer perforation, acute blood loss anemia (9) HTN (hypertension): Hypotension resolved, patient started with home dose of Lopressor (10) Pericardial effusion: PERICARDIAL EFFUSION- Incidental finding with Echocardiogram Pericardial Effusion ECHO: EF: 65-70%; Moderate Pericardial effusion without evidence of Tamponade Patient reports of progressive SOB, dyspnea on exertion for past 1 month associated with generalized weakness fatigue. Consulted Surinder in cardiology appreciate input, stable pericardial effusion without any evidence of tamponade, monitor clinically, no surgical intervention needed (11) Severe sepsis: SEVERE SEPSIS/SEPTIC SHOCK- Resolved Presented with severe sepsis secondary to perforated abdominal viscus/perforation of gastric ulcer/peritonitis -Status post exploratory laparotomy with repair of perforation/ -Required IV pressors briefly, received IV fluid resuscitation -Treated with broad-spectrum antibiotic with IV Zosyn- completed rx (12) PVD (peripheral vascular disease): PVD S/P surgery H/O CVA/cerebral aneurysm S/P Left Carotid endarterectomy Aspirin, Statin on hold -NPO/perforated gastric ulcer, acute blood loss anemia FULL CODE DVT prophylaxis: SCD and teds, Pharmacological anticoagulation avoided in the setting of perforated gastric ulcer, active blood loss anemia Disposition: Medical mx in progress Repeat K at 3 PM and accordingly plan discharge. Family medicine follow-up with Dr. Osei Garcia at [facility] Subjective Patient is doing well. Denies any abdominal pain, nausea, vomiting. No fever, chills. Physical Exam Physical Exam: GENERAL- AAOX3, No acute distress NECK- Supple, no JVD LUNGS- Air entry bilaterally equal. No rales, rhonchi, crackles, wheezes heard. HEART- Regular rate and rhythm. No murmurs ABDOMEN- MERE DRAIN with copious serosanguineous discharge, Soft, non tender, non distended, Bowel sounds heard. EXTREMITIES- Good peripheral pulses, no edema Results & Data Vital Signs (Past 12 Hours) Vital Signs Temp Pulse Resp BP Pulse Ox 09/05/18 07:00 36.5 C 76 18 104/74 92 (1) Hypotension Hypotension type: hypotension due to hypovolemia Qualified Code(s): I95.89 - Other hypotension; E86.1 - Hypovolemia (2) Anemia Anemia type: other cause Other causes of anemia: acute posthemorrhagic Qualified Code(s): D62 - Acute posthemorrhagic anemia (3) Abdominal pain Abdominal location: generalized Qualified Code(s): R10.84 - Generalized abdominal pain
[2018-09-05] MEDS ORDERED: POTASSIUM CHLORIDE 20 MEQ TABCR PO STA ×2 (12:24→16:42)
[2018-09-05 16:37] LABS: BUN Creatinine Ratio 10.8 (10-20); Calcium 8.9 mg/dl (8.5-10.1); Creatinine Clr Calc Pharmacy 41.2 ml/min; Est GFR (African American) 55.6; Potassium 3.1 mmol/L (3.5-5.1)
[2018-09-06] MEDS: TRAMADOL HCL 50 MG TABLET PO PRN (03:15)
[2018-09-06] MEDS: TIMOLOL MALEATE 0.25% OP SOLN 5 ML BTL OPL SCH (07:34)
[2018-09-06] MEDS: PANTOprazole 40 MG TAB PO SCH (07:34)
[2018-09-06] MEDS: SUCRALFATE 1 GM/10 ML UDC PO SCH ×2 (07:34→11:20)
[2018-09-06 07:49] LABS: Hematocrit (blood only) 36.1 % (37-47); Hemoglobin 12.8 g/dL (12.0-16.0)
[2018-09-06 08:24] LABS: BUN Creatinine Ratio 9.7 (10-20); Calcium 8.8 mg/dl (8.5-10.1); Creatinine Clr Calc Pharmacy 41.6 ml/min; Est GFR (African American) 56.2; Est GFR (Non-African American) 48.5
--- NOTE | 2018-09-06 12:43 | Hospitalist Progress Note ---
Date of Service September 06, 2018 Assessment & Plan (1) Hypokalemia: -Secondary to drainage -Resolved after aggressive repletion yesterday (2) Acute gastric ulcer with perforation: HX OF GERD per records. Hx of PUD with NSAID intake- Aspirin/Naproxen. On ASA 325 mg daily for CVA. Presented with severe abd pain, CT abd/pelvis-pneumoperitoneum, perforated gastric ulcer -S/P Emergent laparotomy, Oversew of perforated gastric ulcer, Jonn patch, Abdominal washout on 08/31/18 -Barium study - no extravasation of contrast -Tolerating solid diet well -S/P IV PPI. On protonix BID and sucralfate -Appreciate surgical inputs (3) Hypotension: Improved, BP still low though in 90s S/P Severe sepsis with hypotensive shock/acute blood loss anemia S/P IV Hydrocortisone - Discontinued on 09/03/18 (concerned about adrenal insufficiency given recent prednisone course) --> Started on prednisone 10 mg daily. However with gastric ulcer and short course of IV hydrocortisone discontinued Prednisone as will not need taper -On lopressor with holding parameters -Random cortisol level - 21, 9 AM sample- normal -S/P 4 units PRBCs since admission -S/P IV pressors (4) Anemia: Acute blood loss anemia in setting of acute perforated gastric ulcer status post exploratory laparotomy -Status post 4 units of packed red blood cell transfusion since admission -No more episodes of bleeding -Monitor H & H (5) Hypoxia: RESOLVED Regarding intermittent oxygen supplementation, possibly secondary to atelectasis, poor respiratory effort secondary to abdomen surgery. Patient is encouraged to use incentive spirometry, increased activity as tolerated -Not on oxygen (6) Abdominal pain: -No complaint of abdominal pain, tolerating diet well -Surgical MERE drainage, slowing down, more serous drainage, minimum bleeding noted. (7) Atrial ectopic tachycardia: Resolved HR remains stable /rate controlled Developed tachyarrhythmia due to combination of severe sepsis, perforated gastric ulcer, acute blood loss anemia, hypotension related to dehydrat ion/volume loss/sepsis Echocardiogram shows moderate pericardial effusion without evidence of pericardial tamponade Hypotension treated with IV fluid resuscitation, received PRBC transfusion fusion acute blood loss anemia Echocardiogram shows stable pericardial effusion Cardiology consulted-stable pericardial effusion, should not cause any physiological compromise, monitor observation no intervention needed (8) CVA (cerebral vascular accident): -Prior history of CVA, no neurological residual defects -DC aspirin (was taking 325 mg p.o. daily) -continue to hold antiplatelets: Gastric ulcer perforation, acute blood loss anemia (9) HTN (hypertension): Hypotension resolved, patient started with home dose of Lopressor (10) Pericardial effusion: PERICARDIAL EFFUSION- Incidental finding with Echocardiogram Pericardial Effusion ECHO: EF: 65-70%; Moderate Pericardial effusion without evidence of Tamponade Patient reports of progressive SOB, dyspnea on exertion for past 1 month associated with generalized weakness fatigue. Consulted [facility] in cardiology appreciate input, stable pericardial effusion without any evidence of tamponade, monitor clinically, no surgical intervention needed (11) Severe sepsis: SEVERE SEPSIS/SEPTIC SHOCK- Resolved Presented with severe sepsis secondary to perforated abdominal viscus/perforation of gastric ulcer/peritonitis -Status post exploratory laparotomy with repair of perforation/ -Required IV pressors briefly, received IV fluid resuscitation -Treated with broad-spectrum antibiotic with IV Zosyn- completed rx (12) PVD (peripheral vascular disease): PVD S/P surgery H/O CVA/cerebral aneurysm S/P Left Carotid endarterectomy Aspirin, Statin on hold -NPO/perforated gastric ulcer, acute blood loss anemia FULL CODE DVT prophylaxis: SCD and teds, Pharmacological anticoagulation avoided in the setting of perforated gastric ulcer, active blood loss anemia Disposition: Eager to be discharged Ok to discharge home today Family medicine follow-up with Dr. Osei Garcia at [facility] Subjective Patient is doing well. Denies any abdominal pain, nausea, vomiting. No fever, chills. Eager to be discharged Physical Exam Physical Exam: GENERAL- AAOX3, No acute distress NECK- Supple, no JVD LUNGS- Air entry bilaterally equal. No rales, rhonchi, crackles, wheezes heard. HEART- Regular rate and rhythm. No murmurs ABDOMEN- MERE DRAIN with copious serosanguineous discharge, Soft, non tender, non distended, Bowel sounds heard. EXTREMITIES- Good peripheral pulses, no edema Results & Data Vital Signs (Past 12 Hours) Vital Signs Temp Pulse Resp BP BP Pulse Ox 09/06/18 08:22 96/72 L 09/06/18 07:50 36.6 C 62 18 80/56 L 91 (1) Hypotension Hypotension type: hypotension due to hypovolemia Qualified Code(s): I95.89 - Other hypotension; E86.1 - Hypovolemia (2) Anemia Anemia type: other cause Other causes of anemia: acute posthemorrhagic Quali fied Code(s): D62 - Acute posthemorrhagic anemia (3) Abdominal pain Abdominal location: generalized Qualified Code(s): R10.84 - Generalized abdominal pain
--- NOTE | 2018-09-06 13:33 | Discharge Summary ---
Date of Service September 06, 2018 Admission HPI Per Admitting Provider History obtained from patient, family, and records. Medical history significant for chronic heart failure (EF 60 to 64%, TTE 2017 ), hypertension, PVD status post surgery, history of CVA, cerebral aneurysm as per records, hyperlipidemia, paraproteinemia as per records, past tobacco abuse, chronic anemia baseline hemoglobin of 11, history GERD Recent confinement January 2018 for left hip fracture status post surgery. Patient seen at the ER 4 days ago for shortness of breath on minimal exertion. Emphysema imaging. patient subsequently completed prednisone course and neb treatment. Minimal symptom relief. Patient seen on follow-up at PCPs office 2 days ago. O2 sats in the office 88 on room air Outpatient PFTs, Cardiology consult contemplated as per notes. This afternoon patient noted epigastric discomfort described as fullness and increasing shortness of breath due to inability to take a deep breath. No chest pain, no cough symptoms. Bowel movement in a.m. was not black or bloody. No emesis, no fever, no chills. At the ER, IV Zosyn, IV PPI given for perforated gastric ulcer. 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 Severe sepsis/septic shock secondary to above 3. Atrial ectopic tachycardia, resolved 4. Hypokalemia, resolved 5. Hypoxia, resolved 6. Acute blood loss anemia secondary to above Secondary diagnoses on discharge 1. History of CVA 2. Hypertension 3. Pericardial effusion 4. Peripheral vascular disease Discharge Exam GENERAL- AAOX3, No acute distress NECK- Supple, no JVD LUNGS- Air entry bilaterally equal. No rales, rhonchi, crackles, wheezes heard. HEART- Regular rate and rhythm. No murmurs ABDOMEN- MERE DRAIN with copious serosanguineous discharge, Soft, non tender, non distended, Bowel sounds heard. EXTREMITIES- Good peripheral pulses, no edema Discharge Data Allergies Allergy/AdvReac Type Severity Reaction Status Date / Time hydrocodone Allergy Intermediate CONFUSION Verified 08/25/18 18:06 ramipril Allergy Intermediate Nausea Verified 08/25/18 18:06 Sulfa (Sulfonamide Allergy Intermediate Nausea Verified 08/25/18 18:06 Antibiotics) Consultations 08/25/18 20:04 ED Decision to Admit Stat 08/25/18 21:08 Consult Case Management - Discharge Planning Routine 08/26/18 00:18 Consult Case Management - Discharge Planning Routine Consult Environmental Emergencies Planner Routine 08/26/18 07:35 Consult General Surgery Routine 08/28/18 12:50 Consult Infectious Diseases Routine 08/28/18 12:51 Consult Cardiology Routine Procedures Performed Operation Date: 08/25/18 21:00 Actual Procedures p Conversion to Laparotomy, [place]vers[place] of perforated gastric ulcer, Gram patch, Abdominal washout(Not Applicable) - Nam Hughes, s Laparoscopy(Not Applicable) - Nam Hughes, Ordered Studies 08/25/18 17:25 CT abd pelvis IV con only Stat 08/30/18 10:45 FL upper GI series wo air Routine Hospital Course (1) Acute gastric ulcer with perforation: HX OF GERD per records. Hx of PUD with NSAID intake- Aspirin/Naproxen. On ASA 325 mg daily for CVA. Presented with severe abd pain, CT abd/pelvis-pneumoperitoneum, perforated gastric ulcer -S/P Emergent laparotomy, Oversew of perforated gastric ulcer, Jonn patch, Abdominal washout on 08/31/18 -Barium study - no extravasation of contrast -Tolerating solid diet well -S/P IV PPI. On protonix BID and sucralfate -Appreciate surgical inputs (2) Severe sepsis: SEVERE SEPSIS/SEPTIC SHOCK- Resolved Presented with severe sepsis secondary to perforated abdominal viscus/perforation of gastric ulcer/peritonitis -Status post exploratory laparotomy with repair of perforation/ -Required IV pressors briefly, received IV fluid resuscitation -Treated with broad-spectrum antibiotic with IV Zosyn- completed rx (3) Hypoxia: RESOLVED Regarding intermittent oxygen supplementation, possibly secondary to atelectasis, poor respiratory effort secondary to abdomen surgery. Patient is encouraged to use incentive spirometry, increased activity as tolerated -Not on oxygen (4) Atrial ectopic tachycardia: Resolved HR remains stable /rate controlled Developed tachyarrhythmia due to combination of severe sepsis, perforated gastric ulcer, acute blood loss anemia, hypotension related to dehydration/volume loss/sepsis Echocardiogram shows moderate pericardial effusion without evidence of pericardi al tamponade Hypotension treated with IV fluid resuscitation, received PRBC transfusion fusion acute blood loss anemia Echocardiogram shows stable pericardial effusion Cardiology consulted-stable pericardial effusion, should not cause any physiological compromise, monitor observation no intervention needed (5) Hypotension: Improved, BP still low though in 90s S/P Severe sepsis with hypotensive shock/acute blood loss anemia S/P IV Hydrocortisone - Discontinued on 09/03/18 (concerned about adrenal insufficiency given recent prednisone course) --> Started on prednisone 10 mg daily. However with gastric ulcer and short course of IV hydrocortisone discontinued Prednisone as will not need taper -On lopressor with holding parameters -Random cortisol level - 21, 9 AM sample- normal -S/P 4 units PRBCs since admission -S/P IV pressors (6) Hypokalemia: -Secondary to drainage -Resolved after aggressive repletion yesterday (7) Pericardial effusion: PERICARDIAL EFFUSION- Incidental finding with Echocardiogram Pericardial Effusion ECHO: EF: 65-70%; Moderate Pericardial effusion without evidence of Tamponade Patient reports of progressive SOB, dyspnea on exertion for past 1 month associated with generalized weakness fatigue. Consulted [facility] in cardiology appreciate input, stable pericardial effusion without any evidence of tamponade, monitor clinically, no surgical intervention needed (8) Anemia: Acute blood loss anemia in setting of acute perforated gastric ulcer status post exploratory laparotomy -Status post 4 units of packed red blood cell transfusion since admission -No more episodes of bleeding -Monitor H & H (9) Abdominal pain: -No complaint of abdominal pain, tolerating diet well -Surgical MERE drainage, slowing down, more serous drainage, minimum bleeding noted. (10) CVA (cerebral vascular accident): -Prior history of CVA, no neurological residual defects -DC aspirin (was taking 325 mg p.o. daily) -continue to hold antiplatelets: Gastric ulcer perforation, acute blood loss anemia (11) HTN (hypertension): Hypotension resolved, patient started with home dose of Lopressor (12) PVD (peripheral vascular disease): PVD S/P surgery H/O CVA/cerebral aneurysm S/P Left Carotid endarterectomy Aspirin, Statin on hold -NPO/perforated gastric ulcer, acute blood loss anemia FULL CODE DVT prophylaxis: SCD and teds, Pharmacological anticoagulation avoided in the setting of perforated gastric ulcer, active blood loss anemia Disposition: Eager to be discharged Ok to discharge home today with home health services Family medicine follow-up with Dr. Osei Garcia at [facility], [place] Total Time Total Time Spent Total Time Spent (In Minutes): 45 minutes Discharge Plan Discharge Items Patient Disposition: Home - Home Health Services Reason For Visit: HYPOTENSION, RESPIRATORY FAILURE Discharge Diagnosis: Peforated stomach ulcer status post repair Discharge Goals: Decrease discomfort Activity: Per 'Additional Instructions' section Lifting: No more than 10 pounds Bathing: No limitations Driving/Machine Use Comment: when pain free Non-emergency contact: Surgeon Call non-emergency contact if: you have any medication questions, you have a fever, your temperature is above 101.5, your wound has increased redness and your wound has increased drainage Follow-up/Referrals: Nam Hughes DO [Surgeon] - (Call to make an appt for next Sun or ( or ) to have leonila removed) Sherwin Garcia MD [Primary Care Provider] - 09/11/18 11:05 am Diet: Regular Addtl Provider Instructions: MEDICATION CHANGES: 1. New medication- Protonix 40 mg PO twice a day 2. New medication- Sucralfate as directed 3. Discontinued Aspirin, Naproxen NO NSAIDS- Ibuprofen, Motrin, Aleve, Naproxen etc due to perforated ulcer Post surgical wound care instructions: Cover incision or drain wound daily until drainage stops, then no bandage is needed Continue two stomach medications (Protonix and carafate) until you have endoscopy in 4-6 weeks call [phone] with any questions or concerns ( Dr. Hughes's office) Prescriptions: New pantoprazole 40 mg Tablet,Delayed Release (Dr/Ec) 40 mg PO BID Qty: 60 RF: 0 sucralfate [Carafate] 100 mg/mL suspension 10 ml PO QID Qty: 420 RF: 1 Continued multivitamin Tablet 1 tab PO QAM RF: 0 atorvastatin 80 mg Tablet 80 mg PO HS RF: 0 omega [id number]-fish oil [Fish Oil] 1,000 mg (120 mg-180 mg) Capsule 1,000 mg PO QAM RF: 0 timolol maleate 0.5 % drops 1 drp OPL QAM RF: 0 albuterol sulfate 90 mcg/actuation HFA aerosol inhaler 2 puffs INH Q4H PRN (Reason: shortness of breath or wheezing) Qty: 6.7 RF: 0 Discontinued aspirin 325 mg Tablet 325 mg PO QAM RF: 0 doxycycline hyclate 100 mg capsule 100 mg PO BID RF: 0 prednisone 20 mg tablet 40 mg PO QAM RF: 0 naproxen sodium [Aleve] 220 mg Tablet 220 mg PO Q12H PRN (Reason: Pain) RF: 0 Stand-Alone Forms: [facility] Discharge Orders: Discharge Order (Routine); Ordered 09/06/18 Ordered By: Maria G Martinez Admission Data Admit Date/Time: 08/25/18 21:05 Attending Provider: Maria G Martinez Admit Provider: Tyler Langford Primary Care Provider: Sherwin Garcia Other Providers: Henrique Fritz ; Nam Hughes ; Catrachita Padilla ; Tyler Langford ; Kenneth Cash ; Mart Salas ; Craig Burns ; Quique Martinez ; Royer Valdez ; Long Fajardo ; Alley Massey ; Layne Davis ; Dalton Delgadillo ; Lis Barber Service: Medical
== END 2018-09-06 13:56 | disposition home health service (06) | DRG 853 ==
LOC: ED 16:52 → SUATTDRO 21:05 → OR 21:11 → 1E 21:11 → 2S 08-28 15:15 → 3W 08-30 12:07

== ENCOUNTER 2020-01-28 12:51 | Inpatient (IN) ==
--- NOTE | 2020-01-28 14:17 | XRay Report ---
SINGLE VIEW CHEST CLINICAL HISTORY: Generalized weakness. FINDINGS: An AP, portable, upright chest radiograph is compared to study dated 01/23/2020 and correlat ed with chest CT dated 12/04/2018. The heart is mildly enlarged noting atherosclerotic calcification of the thoracic aorta. The pulmonary vasculature is noncongested. Emphysema and chronic interstitial th ickening is similar to previous. There is chronic elevation of the left hemidiaphragm with associated left basilar atelectasis. There is no airspace consolidation or large pleural effusion. No pneumotho rax is seen. The skeletal structures are osteopenic. The bony thorax is grossly intact. Degenerative change and scoliosis is noted in the thoracic spine. IMPRESSION: Cardiomegaly and emphysema with no acute cardiopulmonary abnormality. ACT 112: Negative or not required by law. Electronically signed by: Natalio Wilson M.D. 01/28/2020 2:15 PM
[2020-01-28 14:37] LABS: Basophils # (auto) 0.03 K/uL (0-0.2); Basophils % (auto) 0.3 %; Eosinophils % (auto) 1.1 %; Hematocrit (blood only) 41.9 % (37-47); Hemoglobin 13.9 g/dL (12.0-16.0); Immature Granulocytes # (auto) 0.02 K/uL (0.00-0.02); Immature Granulocytes % (auto) 0.2 %; Lymphocytes # (auto) 2.02 K/uL (1.2-3.4); Mean Corpuscular Hemoglobin 35.4 pg (25-34); Mean Corpuscular Hgb Conc 33.2 g/dL (32-36); Mean Corpuscular Volume 106.6 fL (80-100); Mean Platelet Volume 9.9 fL (7.4-10.4); Monocytes # (auto) 0.93 K/uL (0.11-0.59); Monocytes % (auto) 10.6 %; Neutrophils # (auto) 5.68 K/uL (1.4-6.5); Neutrophils % (auto) 64.8 %; Platelet Count 234 K/uL (130-400); RDW Coefficient of Variation 13.3 % (11.5-14.5); RDW Standard Deviation 52.1 fL (36.4-46.3); Red Blood Count 3.93 M/uL (4.2-5.4); White Blood Count 8.78 K/uL (4.8-10.8)
[2020-01-28 14:53] LABS: Albumin Level 3.9 gm/dl (3.4-5.0); BUN Creatinine Ratio 9.1 (10-20); Calcium 9.4 mg/dl (8.5-10.1); Creatinine Clr Calc Pharmacy 34.3 ml/min; Est GFR (African American) 53.7; Est GFR (Non-African American) 46.4; Potassium 3.9 mmol/L (3.5-5.1)
[2020-01-28 14:56] LABS: Albumin Globulin Ratio 0.9 (0.9-2); Globulin 4.4 gm/dl (2.5-4.0); Total Protein 8.3 gm/dl (6.4-8.2)
[2020-01-28] MEDS ORDERED: SODIUM CHLORIDE 0.9% 500 ML IV ONE (15:15)
--- NOTE | 2020-01-28 15:16 | Emergency Department Note ---
History of Present Illness General Chief complaint: Dizziness Stated complaint: DIZZINESS,VISION DISTURBANCE Time Seen by Provider: 01/28/20 15:02 Source: patient and family History of Present Illness Provider complaint: Weakness Onset (ago): week(s) Location: head Severity: moderate Pain Consistency: + constant and + other (Worsening) Quality: + other (Generalized weakness) Exacerbated By: + other (Getting up) Associated symptoms: + weakness and + other (Blurry vision); no chest pain, no cough, no fever/chills, no headaches, no nausea/vomiting, no shortness of breath and no syncope This is a 70-year-old female presents with generalized weakness for the past 2 weeks. The patient states she feels lethargic. She gets very lightheaded when she stands up. She occasionally has blurry vision which she is not currently experiencing. She was seen here for the same 5 days ago and had a work-up in the emergency department. She was advised to stay in the hospital but declined at that time. She is presenting today because her symptoms are not improving and getting somewhat worse. She denies any associated fever, vomiting, headache, chest pain, shortness of breath, abdominal pain, black or bloody stools, urinary symptoms or known COVID-19 exposure. She has had a previous stroke. She states she has been eating and drinking normally. Home Medications Home Medications Medication Instructions Recorded Confirmed Type atorvastatin 80 mg PO HS 02/22/18 01/28/20 History multivitamin 1 tab PO QAM 02/22/18 01/28/20 History omega 2-yyx-cti-fish oil [Fish Oil] 1,000 mg PO QAM 02/22/18 01/28/20 History timolol maleate 1 drp OPL QAM 08/21/18 01/28/20 History acetaminophen [Tylenol Extra 500 mg PO QID PRN 10/10/18 01/28/20 History Strength] furosemide [Lasix] 10 mg PO DAILY 11/14/18 01/28/20 History levalbuterol tartrate 45 2 puffs INHALATION Q6H PRN #15 gm 09/23/19 01/28/20 Rx mcg/actuation aerosol inhaler famotidine 20 mg PO BID 01/23/20 01/28/20 History aspirin [Aspir-81] 81 mg PO DAILY 01/28/20 01/28/20 History cholecalciferol (vitamin D3) 50 mcg PO DAILY 01/28/20 01/28/20 History iron,carbonyl-vitamin C [Vitron-C] 1 tab PO DAILY 01/28/20 01/28/20 History spironolactone 12.5 mg PO DAILY 01/28/20 01/28/20 History Allergies Allergy/AdvReac Type Severity Reaction Status Date / Time hydrocodone Allergy Intermediate CONFUSION Verified 01/23/20 12:40 ramipril Allergy Intermediate Nausea Verified 01/23/20 12:40 Sulfa (Sulfonamide Allergy Intermediate Nausea Verified 01/23/20 12:40 Antibiotics) Past Med/Surg History Medical History Acute dyspnea Anemia HX OF ANEMIA Atrial ectopic tachycardia [facility] FOLLOWS WITH DR CONDON - LAST SEEN WEEK OF 09/30 Carotid stenosis S/P LEFT CEA (2012)- FOLLOWS WITH S IN [facility] CHF (congestive heart failure) recent hospital admission 10/13/2018. Shortness of breath has improved markedly. Volume status improved. No complaint of orthopnea, no SOB, no dyspnea on exertion, cough has resolved. No lower extremity edema. GERD (gastroesophageal reflux disease) History of CVA (cerebrovascular accident) Hyperlipidemia Hypertension Pneumonia CURRENTLY - WILL SEE PULMONARY - [facility] 10/09 PVD (peripheral vascular disease) Surgical History H/O exploratory laparotomy 08/25/2018. Done 2/2 perforated gastric ulcer. Flynn 3, Grade 1 view. 7.5 ETT placed. no issues. History of carotid endarterectomy LEFT CEA (2012) History of cataract extraction RIGHT AND LEFT History of hand surgery History of left hip replacement History of tonsillectomy Family History Other Kidney disease Social History Smoking Status: Former smoker Tobacco Type: Cigarettes Second Hand Exposure: No; Hx Alcohol Use: Yes Alcohol type: wine Hx Substance Use: No Preferred Language: Arabic Communication Ability: Effective Visual Impairment: No Limitations Paper Stripper Required: No Beliefs That Will Affect Care: None marital status: Current Living Situation: Spouse Feels Safe at Home: Yes Assistive Devices: Oxygen - Continuous Review of Systems See HPI for pertinent positives & negatives. and A total of 10 systems reviewed and were otherwise negative Physical Exam Vital Signs Vital Signs - 24 hr 01/28/20 12:58 01/28/20 15:06 01/28/20 16:05 Temperature 36.5 C Temperature Source Oral Pulse Rate 85 Pulse Rate [Apical] 107 H 103 H Respiratory Rate 18 20 20 Blood Pressure [Left Arm] 86/60 L 76/56 L Blood Pressure Mean [Left Arm] 68 62 Pulse Oximetry 99 100 98 Oxygen Delivery Method Room Air Room Air Sepsis Recent Fever Within 48 Hours No Sepsis New/Unexplained Change in Mental Status No Sepsis Action Taken by Nursing No Action Required 01/28/20 17:31 Temperature Temperature Source Pulse Rate Pulse Rate [Apical] 101 H Respiratory Rate 16 Blood Pressure [Left Arm] 81/48 L Blood Pressure Mean [Left Arm] 59 Pulse Oximetry 98 Oxygen Delivery Method Room Air Sepsis Recent Fever Within 48 Hours Sepsis New/Unexplained Change in Mental Status Sepsis Action Taken by Nursing Constitutional: Vital signs reviewed. Eyes: Pupils are equal round reactive to light. Conjunctiva are noninjected. ENT: Pharynx is clear without erythema or exudate. Mucous membranes are moist. Neck supple without meningeal signs. Respiratory: Clear to auscultation bilaterally. Breath sounds are equal bilaterally. Cardiovascular: Tachycardic. Heart rate 103. GI: Soft, nondistended and nontender. Bowel sounds are present. Musculoskeletal: No peripheral edema. No lower extremity tenderness. Integumentary: No cyanosis. Neurologic: The patient is awake and alert. Cranial nerves II-XII are intact. Motor is 5 out of 5 all extremities. Sensation is intact to light touch all extremities. Normal speech. No pronator drift. Psychiatric: Normal affect. Not anxious appearing. Course Administered Medications Discontinued Medications Sodium Chloride (Nss) 500 mls @ 999 mls/hr IV .Q31M ONE Stop: 01/28/20 15:45 Last Infusion: 01/28/20 16:00 Dose: 0 mls/hr Documented by: [id number] Admin: 01/28/20 15:25 Dose: 999 mls/hr Documented by: [id number] Sodium Chloride (Nss 1000ml) 250 mls @ 999 mls/hr IV .Q16M ONE Stop: 01/28/20 16:38 Last Infusion: 01/28/20 17:34 Dose: 0 mls/hr Documented by: [id number] Admin: 01/28/20 16:27 Dose: 999 mls/hr Documented by: [id number] Medical Decision Making Differential Diagnosis Anemia, GI bleed, dehydration, metabolic derangement, UTI, pneumonia Medical Records Attestation: I reviewed the patient's medical records. The patient was seen here on January 22 for similar symptoms of lethargy and blurry vision. She had an extensive work-up here including multiple CTs including her head and a right upper quadrant ultrasound as well as blood work and EKG. She was advised stay in the hospital but she declined. Home Medications Current Medication List: was personally reviewed by me Laboratory Data Attestation: I reviewed the patient's lab results. Result diagrams: 01/28/20 14:20 01/28/20 14:20 Lab Results 01/28/20 01/28/20 01/28/20 Range/Units 14:20 14:20 14:20 WBC 8.78 (4.8-10.8) K/uL RBC 3.93 L (4.2-5.4) M/uL Hgb 13.9 (12.0-16.0) g/dL Hct 41.9 (37-47) % MCV 106.6 H (80-100) fL MCH 35.4 H (25-34) pg MCHC 33.2 (32-36) g/dL RDW Std Deviation 52.1 H (36.4-46.3) fL RDW Coeff of Lyssa 13.3 (11.5-14.5) % Plt Count 234 (130-400) K/uL MPV 9.9 (7.4-10.4) fL Immature Gran % (Auto) 0.2 % Neut % (Auto) 64.8 % Lymph % (Auto) 23.0 % Stanly % (Auto) 10.6 % Eos % (Auto) 1.1 % Baso % (Auto) 0.3 % Neut # (Auto) 5.68 (1.4-6.5) K/uL Lymph # (Auto) 2.02 (1.2-3.4) K/uL Stanly # (Auto) 0.93 H (0.11-0.59) K/uL Eos # (Auto) 0.10 (0-0.5) K/uL Baso # (Auto) 0.03 (0-0.2) K/uL Immature Gran # (Auto) 0.02 (0.00-0.02) K/uL Sodium 138 (136-145) mmol/L Potassium 3.9 (3.5-5.1) mmol/L Chloride 103 (98-107) mmol/L Carbon Dioxide 29 (21-32) mmol/L Anion Gap 6.0 (3-11) BUN 11 (7-18) mg/dl Creatinine 1.18 (0.6-1.2) mg/dl Est Cr Clr Drug Dosing 34.3 ml/min Est GFR ( Amer) 53.7 Est GFR (Non-Af Amer) 46.4 BUN/Creatinine Ratio 9.1 L (10-20) Glucose 121 H (70-99) mg/dl Calcium 9.4 (8.5-10.1) mg/dl Total Bilirubin 1.0 (0.2-1) mg/dl AST 69 H (15-37) U/L ALT 65 (12-78) U/L Alkaline Phosphatase 81 (45-117) U/L Troponin I < 0.015 (0-0.045) ng/ml Total Protein 8.3 H (6.4-8.2) gm/dl Albumin 3.9 (3.4-5.0) gm/dl Globulin 4.4 H (2.5-4.0) gm/dl Albumin/Globulin Ratio 0.9 (0.9-2) Urine Color Urine Appearance (Clear) Urine pH (4.5-7.5) Ur Specific [place] (1.000-1.030) Urine Protein (Negative) Urine Glucose (UA) (Negative) Urine Ketones (Negative) Urine Blood (Negative) Urine Nitrite (Negative) Urine Bilirubin (Negative) Urine Urobilinogen (Negative) Ur Leukocyte Esterase (Negative) Urine WBC (Auto) (0-5) /hpf Urine RBC (Auto) (0-4) /hpf U Hyaline Cast (Auto) (0-5) /lpf U Epithel Cells (Auto) (0-5) /lpf Urine Bacteria (Auto) (Negative) 01/28/20 Range/Units 15:16 WBC (4.8-10.8) K/uL RBC (4.2-5.4) M/uL Hgb (12.0-16.0) g/dL Hct (37-47) % MCV (80-100) fL MCH (25-34) pg MCHC (32-36) g/dL RDW Std Deviation (36.4-46.3) fL RDW Coeff of Lyssa (11.5-14.5) % Plt Count (130-400) K/uL MPV (7.4-10.4) fL Immature Gran % (Auto) % Neut % (Auto) % Lymph % (Auto) % Stan[place] % (Auto) % Eos % (Auto) % Baso % (Auto) % Neut # (Auto) (1.4-6.5) K/uL Lymph # (Auto) (1.2-3.4) K/uL Stanly # (Auto) (0.11-0.59) K/uL Eos # (Auto) (0-0.5) K/uL Baso # (Auto) (0-0.2) K/uL Immature Gran # (Auto) (0.00-0.02) K/uL Sodium (136-145) mmol/L Potassium (3.5-5.1) mmol/L Chloride (98-107) mmol/L Carbon Dioxide (21-32) mmol/L Anion Gap (3-11) BUN (7-18) mg/dl Creatinine (0.6-1.2) mg/dl Est Cr Clr Drug Dosing ml/min Est GFR ( Amer) Est GFR (Non-Af Amer) BUN/Creatinine Ratio (10-20) Glucose (70-99) mg/dl Calcium (8.5-10.1) mg/dl Total Bilirubin (0.2-1) mg/dl AST (15-37) U/L ALT (12-78) U/L Alkaline Phosphatase (45-117) U/L Troponin I (0-0.045) ng/ml Total Protein (6.4-8.2) gm/dl Albumin (3.4-5.0) gm/dl Globulin (2.5-4.0) gm/dl Albumin/Globulin Ratio (0.9-2) Urine Color Yellow Urine Appearance Clear (Clear) Urine pH 6.0 (4.5-7.5) Ur Specific [place] 1.009 (1.000-1.030) Urine Protein 2+ H (Negative) Urine Glucose (UA) Negative (Negative) Urine Ketones Negative (Negative) Urine Blood Negative (Negative) Urine Nitrite Negative (Negative) Urine Bilirubin Negative (Negative) Urine Urobilinogen Negative (Negative) Ur Leukocyte Esterase Negative (Negative) Urine WBC (Auto) 1-5 (0-5) /hpf Urine RBC (Auto) 0-4 (0-4) /hpf U Hyaline Cast (Auto) 1-5 (0-5) /lpf U Epithel Cells (Auto) 10-20 H (0-5) /lpf Urine Bacteria (Auto) Negative (Negative) Imaging Data Radiologist's Impression: SINGLE VIEW CHEST CLINICAL HISTORY: Generalized weakness. FINDINGS: An AP, portable, upright chest radiograph is compared to study dated 01/23/2020 and correlated with chest CT dated 12/04/2018. The heart is mildly enlarged noting atherosclerotic calcification of the thoracic aorta. The pulmonary vasculature is noncongested. Emphysema and chronic interstitial thickening is similar to previous. There is chronic elevation of the left hemidiaphragm with associated left basilar atelectasis. There is no airspace consolidation or large pleural effusion. No pneumothorax is seen. The skeletal structures are osteopenic. The bony thorax is grossly intact. Degenerative change and scoliosis is noted in the thoracic spine. IMPRESSION: Cardiomegaly and emphysema with no acute cardiopulmonary abnorma lity. ACT 112: Negative or not required by law. Electronically signed by: Natalio Wilson M.D. 01/28/2020 2:15 PM Dictated: 01/28/20 1413 Transcribed: 01/28/20 1413 ECG Data Attestation: I personally reviewed and interpreted this ECG as follows: Indication: + weakness Rate (beats per minute): 107 Rhythm: + sinus tachycardia ECG ST segments: no ST elevation ECG Findings: + PVCs and + Other (Enlarged P waves and inverted in V1 and V2) Blood Pressure Blood Pressure Findings: Low blood pressure Blood Pressure Disposition: further management by hospitalist CHINEDU Worley I did evaluate the patient as noted above. The patient is presenting with lethargy and blurry vision. On exam she is neurologically intact but significantly hypotensive. IV access was established. I did treat her with normal saline IV. I did place an order for continuous cardiac monitoring. The monitor showed sinus tachycardia at a rate of 103 bpm. I did order and personally review the patient's 12-lead EKG as described above. She has no acute ischemic changes. I did order and personally reviewed the images of the patient's chest x-ray as described above. There is no evidence of pneumonia. I did order a urine analysis. She does not have signs of an infection. I did order and review the patient's blood work as noted in the electronic medical record. She does not have leukocytosis or anemia. Electrolytes are unremarkable. Her AST is slightly elevated but bilirubin and ALT are normal. Initially the patient was given a 500 cc bolus of normal saline. Her blood pressure decreased to the 70s systolic. She was given additional 250 cc and her blood pressure dropped to the 60s systolic. After an additional 250 cc of normal saline IV her blood pressure came up to 81/48. She remains tachycardic. She is agreeable to hospitalization. I did discuss the case with the hospitalis t and pillowcase folder. Impression & Plan Acute hypotension, Generalized weakness, Blurry vision Discharge Plan Visit Data Chief Complaint: Dizziness Stated Complaint: DIZZINESS,VISION DISTURBANCE ED Provider: Quique Grimm Discharge Problem: Acute hypotension, Generalized weakness, Blurry vision Patient Disposition: Being Evaluated by Hospitalist Forms Stand Alone Forms: My [facility] Prescriptions Prescriptions: No Action levalbuterol tartrate 45 mcg/actuation HFA aerosol inhaler 2 puffs inhalation Q6H PRN (Reason: shortness of breath or wheezing) Qty: 15 RF: 0 multivitamin Tablet 1 tab PO QAM RF: 0 atorvastatin 80 mg Tablet 80 mg PO HS RF: 0 omega [id number]-ays-fish oil [Fish Oil] 1,000 mg (120 mg-180 mg) Capsule 1,000 mg PO QAM RF: 0 furosemide [Lasix] 20 mg tablet 10 mg PO DAILY RF: 0 acetaminophen [Tylenol Extra Strength] 500 mg Tablet 500 mg PO QID PRN (Reason: Pain) RF: 0 famotidine 20 mg tablet 20 mg PO BID RF: 0 timolol maleate 0.5 % drops 1 drp OPL QAM RF: 0 spironolactone 25 mg tablet 12.5 mg PO DAILY RF: 0 aspirin [Aspir-81] 81 mg Tablet,Delayed Release (Dr/Ec) 81 mg PO DAILY RF: 0 Vitron-C 65 mg iron- 125 mg tablet,delayed release (DR/EC) 1 tab PO DAILY RF: 0 cholecalciferol (vitamin D3) 50 mcg (2,000 unit) Capsule 50 mcg PO DAILY RF: 0 Referrals Referrals: Sherwin Garcia MD [Primary Care Provider] -
[2020-01-28 15:39] LABS: Appearance Urine Clear (Clear); Bacteria Urine Automated Negative (Negative); Bilirubin Urine Negative (Negative); Blood Urine Negative (Negative); Color Urine Yellow; Glucose Urine UA Negative (Negative); Ketones Urine Negative (Negative); Leukocyte Esterase Urine Negative (Negative); Nitrite Urine Negative (Negative); Protein Urine 2+ (Negative); RBC Urine Automated 0-4 /hpf (0-4); Specific Gravity Urine 1.009 (1.000-1.030); Urobilinogen Urine Negative (Negative)
[2020-01-28 15:52] LABS: Troponin I < 0.015 ng/ml (0-0.045)
[2020-01-28] MEDS ORDERED: SODIUM CHLORIDE 0.9% 1000ML 250 ML IV ONE (16:23)
[2020-01-28] MEDS: SODIUM CHLORIDE 0.9% 1000ML 1,000 ML IV SCH (18:00)
--- NOTE | 2020-01-28 18:04 | History & Physical Report ---
Date of Service January 28, 2020 Assessment & Plan (1) Visual disturbance: -admit to tele -patient presenting from home with reports of episodic visual disturbance and confusion that has been ongoing for the past couple of months however more frequent over the past 2 weeks -Had head CT on 01/22 that was unremarkable -Etiology unclear at this point -Brain MRI and MRA, neck MRA -May need ophthalmology evaluation -Neuro consult (2) Hypotension: -Noted be hypotensive in the ED, lowest BP recorded 67/53 -? Accuracy of readings given the patient is totally asymptomatic -Baseline systolic BP seems to run in the 90s-low 100s -will try smaller cuff -Hold home diuretics for now -IVF -Resting echo -trend the lactic acid (3) Chronic diastolic CHF (congestive heart failure): -Appears euvolemic, may be on the hypovolemic side given hypotension -Holding diuretics for now, monitor volume status closely (4) History of CVA (cerebrovascular accident): -Continue aspirin and statin (5) COPD (chronic obstructive pulmonary disease): -No signs of acute exacerbation (6) DVT prophylaxis: -SQ Heparin History of Present Illness Chief Complaint: Visual disturbance Primary Care Provider: Sherwin Garcia MD 70-year-old female with PMH COPD, history of CVA, GERD, history of perforated gastric ulcer, history of CEA, and other problems listed below who presents to the ED for evaluation of visual disturbance. Patient reports that at the end of October, she suffered a fall after tripping over her cat's water bowl. She reports that she had significant bruising to her face. Was seen by her PCP and head CT was ordered that was apparently unremarkable. Patient reports that since that time, she has been having episodes where her visual field becomes very bright and she is unable to see. reports the patient is also confused during these episodes. They would last for up to 30 minutes at a time. Episodes have been increasing in frequency over the past couple of weeks. Patient reports she also feels unsteady on her feet during these episodes. Denies any slurred speech, facial droop, difficulty speaking or understanding. No unilateral weakness, numbness, tingling. Denies lightheadedness, dizziness, diaphoresis, syncopal events. No chest pain or shortness of breath. Denies abdominal pain, nausea, vomiting, diarrhea. No other recent illnesses, fevers, chills. Denies urinary symptoms. Patient was seen in the ED on 01/22 for similar symptoms. Head CT was negative at that time. She was offered admission at that time however declined. Patient had another somewhat severe episode today so therefore presented back to the ED for evaluation. Denies any symptoms currently. In the ED today, patient's labs are unremarkable. Patient is found to be hypotensive with systolic blood pressures in the 80s to 90s. Patient is asymptomatic. She has received IVF. Allergies Allergy/AdvReac Type Severity Reaction Status Date / Time hydrocodone Allergy Intermediate CONFUSION Verified 01/23/20 12:40 ramipril Allergy Intermediate Nausea Verified 01/23/20 12:40 Sulfa (Sulfonamide Allergy Intermediate Nausea Verified 01/23/20 12:40 Antibiotics) Home Medications Home Medications Medication Instructions Recorded Confirmed Type atorvastatin 80 mg PO HS 02/22/18 01/28/20 History multivitamin 1 tab PO QAM 02/22/18 01/28/20 History omega 3-tbz-kxf-fish oil [Fish Oil] 1,000 mg PO QAM 02/22/18 01/28/20 History timolol maleate 1 drp OPL QAM 08/21/18 01/28/20 History acetaminophen [Tylenol Extra 500 mg PO QID PRN 10/10/18 01/28/20 History Strength] furosemide [Lasix] 10 mg PO DAILY 11/14/18 01/28/20 History levalbuterol tartrate 45 2 puffs INHALATION Q6H PRN #15 gm 09/23/19 01/28/20 Rx mcg/actuation aerosol inhaler famotidine 20 mg PO BID 01/23/20 01/28/20 History aspirin [Aspir-81] 81 mg PO DAILY 01/28/20 01/28/20 History cholecalciferol (vitamin D3) 50 mcg PO DAILY 01/28/20 01/28/20 History iron,carbonyl-vitamin C [Vitron-C] 1 tab PO DAILY 01/28/20 01/28/20 History spironolactone 12.5 mg PO DAILY 01/28/20 01/28/20 History Past Med/Surg History Medical History Anemia HX OF ANEMIA Atrial ectopic tachycardia Bigeminy FOLLOWS WITH DR CONDON - LAST SEEN WEEK OF 09/30 Carotid stenosis S/P LEFT CEA (2012)- FOLLOWS WITH [facility] IN [place] Chronic diastolic CHF (congestive heart failure) COPD (chronic obstructive pulmonary disease) GERD (gastroesophageal reflux disease) H/O gastric ulcer History of CVA (cerebrovascular accident) Hyperlipidemia Hypertension PVD (peripheral vascular disease) Surgical History H/O exploratory laparotomy 08/25/2018. Done 2/2 perforated gastric ulcer. Flynn 3, Grade 1 view. 7.5 ETT placed. no issues. History of carotid endarterectomy LEFT CEA (2012) History of cataract extraction RIGHT AND LEFT History of hand surgery History of left hip replacement History of tonsillectomy Family History Other Kidney disease Social History Smoking Status: Former smoker Tobacco Type: Cigarettes Smoking End Date: 1997; Second Hand Exposure: No; Do You Dip or Chew Tobacco: No; Tobacco Cessation Education Requested by Patient: No Hx Alcohol Use: Yes Alcohol type: wine Hx Substance Use: No Preferred Language: Arabic Communication Ability: Effective Visual Impairment: No Limitations Pie Filling Mixer Required: No Beliefs That Will Affect Care: None marital status: Current Living Situation: Spouse Other Information That Helps Us Care for You: No Feels Safe at Home: Yes Safety Concerns: Feels Safe At This Time Assistive Devices: None Review of Systems Review of Systems: ROS per HPI, all other systems reviewed and negative Physical Exam Constitutional: WD/WN, vitals as above Eyes: PERRL, conjunctivae normal, anicteric sclerae ENMT: external ear and nose normal, oropharynx normal Respiratory: normal respiratory effort, lungs clear to auscultation Cardiovascular: Rate/Rhythm: regular rate and regular rhythm Vessels: normal peripheral pulses Extremities: no edema Gastrointestinal (Abdomen): normal bowel sounds, soft, nontender, no hepatosplenomegaly Musculoskeletal: no cyanosis or clubbing, extremities motor strength 5/5 Skin: no rashes, warm and dry Neurologic: PERRL, EOMI, accommodation nl, no face palsy, no dysarthria moves all extremities; no focal motor deficits Motor/Sensory: no pronator drift Psychiatric: A+Ox3, euthymic affect Results & Data Results & Data ([facility]) Vital Signs (Past 12 Hours) Vital Signs Temp Pulse Pulse Resp BP Pulse Ox 01/28/20 17:31 101 H 16 81/48 L 98 01/28/20 16:05 103 H 20 76/56 L 98 01/28/20 15:06 107 H 20 86/60 L 100 01/28/20 12:58 36.5 C 85 18 99 Laboratory Results Short CBC 01/28/20 Range/Units 14:20 WBC 8.78 (4.8-10.8) K/uL Hgb 13.9 (12.0-16.0) g/dL Hct 41.9 (37-47) % Plt Count 234 (130-400) K/uL BMP 01/28/20 14:20 Sodium 138 Potassium 3.9 Chloride 103 Carbon Dioxide 29 BUN 11 Creatinine 1.18 Glucose 121 H Calcium 9.4 Cardiac Enzymes 01/28/20 Range/Units 14:20 Troponin I < 0.015 (0-0.045) ng/ml Liver Function 01/28/20 Range/Units 14:20 Total Bilirubin 1.0 (0.2-1) mg/dl AST 69 H (15-37) U/L ALT 65 (12-78) U/L Alkaline Phosphatase 81 (45-117) U/L Albumin 3.9 (3.4-5.0) gm/dl Urine 01/28/20 Range/Units 15:16 Urine Color Yellow Urine Appearance Clear (Clear) Urine pH 6.0 (4.5-7.5) Ur Specific Decker 1.009 (1.000-1.030) Urine Protein 2+ H (Negative) Urine Glucose (UA) Negative (Negative) Diagnostic Findings CXR IMPRESSION: Cardiomegaly and emphysema with no acute cardiopulmonary abnormality. Code Status & VTE Plan Code Status Patient is a full code as per my discussion with her. VTE Prophylaxis Plan VTE Prophylaxis will be ordered: Yes Supervising Physician Co-Signing Physician Notes I, Dr. Gab Gonzales, have seen and examined the patient with nurse practitioner and agree with the assessment and plan as above and would like to comment that on exam General: no acute distress Lungs: clear to auscultation bilaterally Heart: regular rate and rhythm Abdomen: soft, nontender, positive bowel sounds Eyes: EOMI, no abnormal reaction when light is shined to the eyes. patient denies visual problems at time of exam. denies headaches Assessment and Plan -this is a patient with head injury in October and subsequently went to eye doctor in October or November. patient reports that when she was seen by eye doctor, she was told to continue her eye drops for glaucoma. She reports that they discussed her retina but there were no concerns for retinal detachment. In recent weeks in December, patient noted symptoms seeing a glares of light in her vision and reports that they affect both eyes. She appears to correlate this problem mostly in the morning times after she wakes up and starts her day. But when these visual disturbances happen, she feels malaise or general weakness. she reported to my nurse practitioner that sometimes these glares correlate with after eating. -but patient denies other neurological symptoms. she denies headaches associated with the visual disturbances. she denies problems with her gait. -at this time, it is unclear what is causing her symptoms. will have Brain MRI and neurological consult and hospital monitoring to see if these symptoms occur during close monitoring. also advised to patient and her family to go back to eye doctor after the hospital stay for further eye exams. -patient also has generally low to low normal blood pressures at baseline. there appears to be also some errors with blood pressure cuff when in the ED in checking the blood pressure. patient denies dizziness currently, also denies fevers. she has received IV fluids. The lactic acid returns as elevated. will continue the IV fluids and repeat the lactic acid. otherwise based on her exam, she does not appear to be septic . hold her home dose diuretics. -agree with other assessment and plans for other health issues as documented by nurse practitioner. -Dr. Connolly will be following the patient as hospitalist starting on 01/29/2020
[2020-01-28 18:20] LABS: Thyroid Stimulating Hormone 0.485 uIu/ml (0.300-4.500)
[2020-01-28] MEDS ORDERED: LORazepam 1 MG/2 ML VIAL IV STA (18:40)
[2020-01-28] MEDS ORDERED: ACETAMINOPHEN 325 MG TAB PO PRN (18:45)
[2020-01-28] MEDS ORDERED: LORazepam 2 MG/4 ML VIAL ONE (20:49)
[2020-01-28] MEDS ORDERED: LORazepam 0.25 MG/0.5 ML VIAL IV STA (21:51)
[2020-01-28] MEDS: HEPARIN SOD 5,000 UNIT/0.5 ML VIAL SQ SCH (22:45)
[2020-01-28] MEDS: FAMOTIDINE 20 MG TAB PO SCH (22:45)
[2020-01-28] MEDS: ATORVASTATIN 40 MG TAB PO SCH (22:46)
[2020-01-28] MEDS ORDERED: GADOBUTROL 65ML VIAL IV ONE (22:52)
[2020-01-28] MEDS ORDERED: SODIUM CHLORIDE 0.9% 1000ML 1,000 ML IV SCH (23:30)
[2020-01-28] MEDS ORDERED: STAT IV Infusion **Titration per Protocol STA (23:40)
[2020-01-28] MEDS ORDERED: PIPERACILLIN/TAZOBACTAM 4.5 GM in DEXTROSE 5% 100 ML IV ONE (23:44)
[2020-01-28] MEDS ORDERED: PIPERACILL/TAZOBAC CONSULT ACTIVE PRN (23:44)
[2020-01-28] MEDS ORDERED: VANCOMYCIN CONSULT ACTIVE PRN (23:44)
[2020-01-28] MEDS ORDERED: VANCOMYCIN HCL 1,250 MG in SODIUM CHLORIDE 0.9% 250 ML IV ONE (23:45)
[2020-01-29] MEDS: NOREPINEPHRINE BIT INJ 8 MG in DEXTROSE 5% 500 ML IV SCH (00:10)
[2020-01-29] MEDS: SODIUM CHLORIDE 0.9% 1000ML 1,000 ML IV SCH ×2 (01:43→12:00)
[2020-01-29 02:07] LABS: Basophils # (auto) 0.02 K/uL (0-0.2); Basophils % (auto) 0.3 %; Eosinophils # (auto) 0.08 K/uL (0-0.5); Eosinophils % (auto) 1.3 %; Hematocrit (blood only) 36.6 % (37-47); Hemoglobin 12.2 g/dL (12.0-16.0); Lymphocytes # (auto) 1.68 K/uL (1.2-3.4); Lymphocytes % (auto) 26.7 %; Mean Corpuscular Hemoglobin 35.1 pg (25-34); Mean Corpuscular Volume 105.2 fL (80-100); Mean Platelet Volume 9.9 fL (7.4-10.4); Monocytes # (auto) 0.49 K/uL (0.11-0.59); Monocytes % (auto) 7.8 %; Neutrophils # (auto) 4.02 K/uL (1.4-6.5); Neutrophils % (auto) 63.9 %; Platelet Count 183 K/uL (130-400); RDW Coefficient of Variation 13.2 % (11.5-14.5); RDW Standard Deviation 51.1 fL (36.4-46.3); Red Blood Count 3.48 M/uL (4.2-5.4); White Blood Count 6.29 K/uL (4.8-10.8)
[2020-01-29 02:13] LABS: Mean Corpuscular Hgb Conc 33.3 g/dL (32-36)
--- NOTE | 2020-01-29 02:18 | Procedure Note ---
Procedure Note Date of Service January 29, 2020 Note ARTERIAL LINE PROCEDURE NOTE: Procedure: Femoral arterial Line Placement Attending: Dr. Yunior Cui Provider: BUBBA Uribe Indication: Monitoring on Pressors Anesthesia: Lidocaine 1% Line was placed emergently as the patient was considered to be severely hypotensive with manual systolic blood pressures in the 50s. There was difficulty obtaining blood pressure readings on the monitor. Patient had also been started on vasopressors and needed continuous blood pressure monitoring. A time-out was completed verifying correct patient, procedure, site, positioning, and implant(s) or special equipment if applicable. Decision was made to insert femoral arterial line as the patient's radial arteries were very small and nonpalpable. Patients right groin was prepped and draped in the usual sterile fashion. Ultrasound guidance was used to aid needle placement. An introducer needle was inserted into the patient's right femoral artery. Wire was inserted and the needle was removed. The superficial incision was made with a scalpel at the insertion point of the wire. Catheter was inserted over the wire and the wire was removed intact. Good arterial blood flow with pulse was observed and the arterial catheter was hooked up to the transducer and good waveform was observed on the monitor. Arterial catheter was then sutured in place and a sterile dressing was applied. The patient tolerated the procedure well. Blood Loss: Minimal Complications: None Procedural Ultrasound Guidance: Procedure Date: 01/29/2020 Indication: Arterial line insertion Attending: Dr. Yunior Cui Provider: BUBBA Uribe Artery Identified: YES Line confirmed in Artery with ultrasound: Yes Complications: NONE Patient tolerated procedure: WELL Coding CPT Codes Tubes, Drains, and Vasc Access - Tubes, Drains, and Vasc Access: [id number] Place Catheter In Artery ([id number]) Tubes, Drains, and Vasc Access - Tubes, Drains, and Vasc Access: [id number] Ultrasound Guidance For Vascular ([id number]) [facility] Procedure Codes (Charges) Tubes, Drains, and Vasc Access Procedure 1: Tubes, Drains, and Vasc Access: [id number] Place Catheter In Artery Procedure 2: Tubes, Drains, and Vasc Access: [id number] Ultrasound Guidance For Vascular
--- NOTE | 2020-01-29 02:18 | Critical Care Consultation ---
Date of Consultation January 29, 2020 Assessment & Plan (1) Hypotension: Impression: 70-year-old female presented to the ICU with concerns for significant symptomatic hypotension Neuro - Carotid artery stenosis/CVA/patient with history of bilateral carotid artery stenosis with left endarterectomy, prior CVA with right upper extremity weakness and dysarthria deficits - MRA neck preliminary report: Narrowing of the proximal left internal carotid artery, right common carotid is patent. Carotid bulb. Either focal high-grade stenosis of the proximal right internal carotid artery or artifact. -MRA head preliminary report: Inferiorly medially projecting aneurysm measuring up to 5 mm from the paraophthalmic segment of the left ICA. Infundibulum or aneurysm measuring up to 3.5 mm projecting inferiorly medially from the supraclinoid segment of the left ICA. -MRI brain preliminary report: Restricted diffusion along the cortex of the left parieto-occipital region, concerning for acute or subacute infarcts. Encephalomalacia in the left frontal lobe. -Echo ordered for this a.m., follow-up report to rule out aortic stenosis for neurological symptoms -Consults to neurology and vascular surgery, will follow recommendations -Currently undergoing invasive blood pressure monitoring, would allow permissive hypertension to ensure cerebral perfusion -Continue aspirin, atorvastatin Cardiac - Hypotension?As discussed in HPI, patient was thought to be hypotensive and exhibited difficulty to obtain blood pressure through cuff pressures -A-line inserted reveals internal blood pressure hypertensive, would allow permissive hypertension due to symptomatic [place] -No signs of septic shock, random cortisol 11, patient denies use of steroids -follow-up echo report -Difficulty obtaining blood pressure likely due to significant vascular disease, arterial sclerosis and calcification Diastolic heart failureLasix has been held as patient was thought to be hypotensive, however given the patient's blood pressure no reading as hypertensive would consider safe to resume -Follow-up echo this a.m. Atrial ectopic tachycardiacurrently sinus rhythm on monitor, monitor on continuous telemetry for now Respiratory - COPDcurrently asymptomatic, maintaining sats on room air, no wheezing on exam -PRN DuoNeb -Continuous monitor on pulse ox GI - GERD/history of perforated gastric ulcercontinue famotidine RENAL/LYTES - Creatinine within normal limits Monitor routine BMPs and replete electrolytes as indicated - Camacho inserted, strict I's and O's ENDO - No history of diabetes, TSH within normal limits ICU hyperglycemic protocol HEME - H&H within normal limits, no signs of bleeding, monitor routine CBCs ID - Patient started empirically on antibiotics as she was thought tobehypotensive and displayed elevated lactate on initial lab work. No leukocytosis, afebrile, lactate now within normal limits, procalcitonin unremarkable Blood cultures are pending, UA negative Currently no clear evidence of infectious process, will hold on antibiotic therapy at this time LINES/IV ACCESS - Peripheral IVs, A-line DVT PROPHYLAXIS - SCDs Thank you for allowing us to participate in the care of this patient. Please refer to my attending physician's documentation for any further recommendations. (2) History of CVA (cerebrovascular accident): (3) COPD (chronic obstructive pulmonary disease): (4) Chronic diastolic CHF (congestive heart failure): (5) GERD (gastroesophageal reflux disease): (6) Hyperlipidemia: (7) Hypertension: (8) Visual disturbance: (9) Carotid stenosis: (10) PVD (peripheral vascular disease): (11) Atrial ectopic tachycardia: Supervising Physician Co-Signing Physician Notes I have personally evaluated and examined this patient. I agree with assessment and plan of Hayden MAC. Patient no longer hypotensive. She is a known vasculopath with several stenoses, she may be exhibiting signs of subclavian steal as the etiology of her symptoms aside from a carotid stenosis. Vascular to see however she is stable for downgrade out of the ICU. History of Present Illness Attending Physician: Tacos Connolly MD History of Present Illness Ms. Núñez is a 70-year-old female with past medical history of COPD, prior CVA with deficits of right upper extremity weakness and dysarthria, GERD, history of perforated gastric ulcer, bilateral carotid artery stenosis s/p left carotid endarterectomy. She presented to the emergency department yesterday evening with complaints of generalized weakness for 2 weeks, lightheadedness when standing up, and intermittent periods of blurred vision lasting 30 minutes. Patient's stated that she also became confused during these episodes. She had been seen in the emergency department 5 days prior and was offered hospital admission but had declined. She presented back to the ER when symptoms had become worse since that time. She was noted to have mild elevation of lactate in the emergency department and there was difficulty obtaining blood pressures which showed hypotension, however patient remained asymptomatic. Patient was admitted to the hospital and MRI and MRA were obtained. MRI showed restricted diffusion along the cortex of the left parieto-occipital region concerning for acute or subacute infarcts. MRA head and neck suggest high-grade stenosis of the proximal right internal carotid artery. I was contacted by the medical photographer for [facility] as there was concern for symptom atic hypotension. Patient had become lightheaded and dizzy, and there was difficulty obtaining blood pressure from the cuff. Manual blood pressure was obtained with Doppler which revealed an SBP in the 50s and diastolic in the 30s in the left upper extremity. Patient has been placed in reverse Trendelenburg and given a 1 L bolus of crystalloid. Symptoms or blood pressure did not improve from bolus and she was started on Levophed drip and transferred to the ICU. On arrival to the ICU and arterial line was emergently placed as there was continued difficulty obtaining a blood pressure from the cuff and pressures obtained were reading very low. Once an arterial line was placed in the right femoral artery, blood pressure readings were obtained and revealed the patient's actual systolic blood pressure was over 200 on the Levophed drip, which was then discontinued. Currently the patient is asymptomatic and no longer complaining of dizziness. She denied loss of consciousness from previous event. She denies current lightheadedness or syncope. She was noted to display dysarthria and right sided weakness which she confirms are residual effects from prior stroke. She denies recent headaches, illness or fevers, cough or sore throat, shortness of breath, palpitations, chest pain, abdominal pain, nausea or vomiting, or diarrhea. Allergies Allergy/AdvReac Type Severity Reaction Status Date / Time hydrocodone Allergy Intermediate CONFUSION Verified 01/23/20 12:40 ramipril Allergy Intermediate Nausea Verified 01/23/20 12:40 Sulfa (Sulfonamide Allergy Intermediate Nausea Verified 01/23/20 12:40 Antibiotics) Home Medications Home Medications Medication Instructions Recorded Confirmed Type atorvastatin 80 mg PO HS 02/22/18 01/28/20 History multivitamin 1 tab PO QAM 02/22/18 01/28/20 History omega 2-ajk-lqd-fish oil [Fish Oil] 1,000 mg PO QAM 02/22/18 01/28/20 History timolol maleate 1 drp OPL QAM 08/21/18 01/28/20 History acetaminophen [Tylenol Extra 500 mg PO QID PRN 10/10/18 01/28/20 History Strength] furosemide [Lasix] 10 mg PO DAILY 11/14/18 01/28/20 History levalbuterol tartrate 45 2 puffs INHALATION Q6H PRN #15 gm 09/23/19 01/28/20 Rx mcg/actuation aerosol inhaler famotidine 20 mg PO BID 01/23/20 01/28/20 History aspirin [Aspir-81] 81 mg PO DAILY 01/28/20 01/28/20 History cholecalciferol (vitamin D3) 50 mcg PO DAILY 01/28/20 01/28/20 History iron,carbonyl-vitamin C [Vitron-C] 1 tab PO DAILY 01/28/20 01/28/20 History spironolactone 12.5 mg PO DAILY 01/28/20 01/28/20 History Patient History Medical History Anemia HX OF ANEMIA Atrial ectopic tachycardia Bigeminy FOLLOWS WITH DR CONDON - LAST SEEN WEEK OF 09/30 Carotid stenosis S/P LEFT CEA (2012)- FOLLOWS WITH [facility] IN [place] Chronic diastolic CHF (congestive heart failure) COPD (chronic obstructive pulmonary disease) GERD (gastroesophageal reflux disease) H/O gastric ulcer History of CVA (cerebrovascular accident) Hyperlipidemia Hypertension PVD (peripheral vascular disease) Surgical History H/O exploratory laparotomy 08/25/2018. Done 2/2 perforated gastric ulcer. Flynn 3, Grade 1 view. 7.5 ETT placed. no issues. History of carotid endarterectomy LEFT CEA (2012) History of cataract extraction RIGHT AND LEFT History of hand surgery History of left hip replacement History of tonsillectomy Family History Other Kidney disease Social History Smoking Status: Former smoker Tobacco Type: Cigarettes Smoking End Date: 1997; Second Hand Exposure: No; Do You Dip or Chew Tobacco: No; Tobacco Cessation Education Requested by Patient: No Hx Alcohol Use: Yes Alcohol type: wine Hx Substance Use: No Preferred Language: Congolese Communication Ability: Effective Visual Impairment: No Limitations Director Electrical Engineering Required: No Beliefs That Will Affect Care: None marital status: Current Living Situation: Spouse Other Information That Helps Us Care for You: No Feels Safe at Home: Yes Safety Concerns: Feels Safe At This Time Assistive Devices: None Review of Systems Review of Systems: All systems reviewed & are unremarkable except as noted in HPI & below Physical Exam Constitutional: cooperative and comfortable; no acute distress Eyes: PERRL, conjunctivae normal, anicteric sclerae ENMT: external ear and nose normal, oropharynx normal Neck: trachea midline, no thyromegaly Respiratory: normal respiratory effort, lungs clear to auscultation symmetric chest movement; no respiratory distress, no labored breathing and no c ough Cardiovascular: RRR, no murmur, no edema Heart Sounds: normal S1 and normal S2 Vessels: no JVD Extremities: normal capillary refill; no edema Gastrointestinal (Abdomen): normal bowel sounds, soft, nontender, no hepatosplenomegaly Musculoskeletal: no cyanosis or clubbing, extremities motor strength 5/5 Skin: no rashes, warm and dry Neurologic: PERRLA, EOMs intact, dysarthria, right upper extremity weakness, alert and oriented x3 Psychiatric: A+Ox3, euthymic affect Results & Data Results & Data ([facility]) Vital Signs (Past 12 Hours) Vital Signs Temp Pulse Pulse Pulse Resp BP BP 01/29/20 02:16 133 H 18 172/73 H 01/29/20 01:24 36.7 C 103 H 20 189/75 H 01/28/20 23:35 50/20 L 01/28/20 23:00 36.7 C 126 H 105 H 18 60/40 L 01/28/20 18:33 36.8 C 102 H 18 98/60 L 01/28/20 17:31 101 H 16 81/48 L 01/28/20 16:05 103 H 20 76/56 L 01/28/20 15:06 107 H 20 86/60 L Pulse Ox 01/29/20 02:16 93 01/29/20 01:24 91 01/28/20 23:35 01/28/20 23:00 94 01/28/20 18:33 96 01/28/20 17:31 98 01/28/20 16:05 98 01/28/20 15:06 100 Coding Level of Care Code 63110 Office/OBS Consult Lvl 5 Diagnoses Hypotension I95.9 History of CVA (cerebrovascular accident) Z86.73 COPD (chronic obstructive pulmonary disease) J44.9 Chronic diastolic CHF (congestive heart failure) I50.32 GERD (gastroesophageal reflux disease) K21.9 Hyperlipidemia E78.5 Hypertension I10 Visual disturbance H53.9 Carotid stenosis I65.29 PVD (peripheral vascular disease) I73.9 Atrial ectopic tachycardia I47.1
[2020-01-29 02:30] LABS: Albumin Level 3.1 gm/dl (3.4-5.0); BUN Creatinine Ratio 9.6 (10-20); Calcium 7.7 mg/dl (8.5-10.1); Creatinine Clr Calc Pharmacy 40.8 ml/min; Est GFR (African American) 65.6; Est GFR (Non-African American) 56.6; Potassium 3.1 mmol/L (3.5-5.1)
[2020-01-29 02:37] LABS: Bilirubin Direct 0.4 mg/dl (0-0.2); Total Protein 6.8 gm/dl (6.4-8.2)
[2020-01-29] MEDS: POTASSIUM CHLORIDE / WTR 10 MEQ/100 ML PLCT IV SCH ×4 (03:49→09:27)
[2020-01-29] MEDS ORDERED: ALBUT/IPRATROP 3MG/0.5MG NEB 3 ML VIAL NEB PRN (04:35)
[2020-01-29 04:50] LABS: Hematocrit (blood only) 37.5 % (37-47); Mean Corpuscular Hemoglobin 33.9 pg (25-34); Mean Corpuscular Volume 105.9 fL (80-100); Mean Platelet Volume 9.8 fL (7.4-10.4); Platelet Count 200 K/uL (130-400); RDW Coefficient of Variation 13.1 % (11.5-14.5); RDW Standard Deviation 51.2 fL (36.4-46.3); Red Blood Count 3.54 M/uL (4.2-5.4); White Blood Count 6.66 K/uL (4.8-10.8)
[2020-01-29 05:19] LABS: BUN Creatinine Ratio 10.4 (10-20); Calcium 7.9 mg/dl (8.5-10.1); Creatinine Clr Calc Pharmacy 44.4 ml/min; Est GFR (African American) 72.6; Est GFR (Non-African American) 62.6; Potassium 3.3 mmol/L (3.5-5.1)
[2020-01-29] MEDS ORDERED: PIPERACILLIN/TAZOBACTAM 3.375 GM in DEXTROSE 5% 100 ML IV SCH (06:00)
--- NOTE | 2020-01-29 06:16 | Electrocardiogram Report ---
Test Reason : Blood Pressure : / mmHG Vent. Rate : 107 BPM Atrial Rate : 107 BPM P-R Int : 154 ms QRS Dur : 086 ms QT Int : 342 ms P-R-T Axes : 043 -14 083 degrees QTc Int : 456 ms Sinus tachycardia with occasional Premature ventricular complexes Nonspecific ST abnormality Abnormal ECG When compared with ECG of 23-JAN-2020 12:20, Premature ventricular complexes are now Present Confirmed by Tristan Lane ([id number]) on 01/29/2020 6:16:08 AM Referred By: Confirmed By:Tristan Lane
[2020-01-29 06:30] LABS: Estimated Average Glucose 108 mg/dl; Hemoglobin A1C 5.4 % (4.5-5.6)
--- NOTE | 2020-01-29 07:25 | Magnetic Resonance Report ---
MRI OF THE BRAIN COMBO CLINICAL HISTORY: Change in mental status. Visual disturbances. COMPARISON STUDY: CT of the brain dated 01/23/2020. TECHNIQUE: MRI of the brain was performed utilizing various T1 and T2-weighted sequences in the axial , sagittal, and coronal planes. Contrast-enhanced sequences were acquired following the administratio n of 4.5 cc of Gadavist. The examination is compromised by motion artifact. FINDINGS: Brain parenchyma: There is age-related involutional change noting moderate to advanced confluent subc ortical and periventricular microangiopathic disease. Foci of left frontal and parietal encephalomala mauricio are unchanged and consistent with remote infarcts. There is no hemorrhage or mass effect. Questio n a thin band of linear restricted diffusion involving the peripheral left occipital cortex. This may be artifactual. No additional foci of restricted diffusion are seen to suggest acute ischemia. No en hancing mass lesion is identified on the postcontrast images. Numerous chronic lacunar infarct identi fied in the cerebellar hemispheres, the patrick, the caudate heads, and the basal ganglia. Hernandez-white ma tter differentiation is preserved. No extra-axial fluid collection is seen. The cerebellar tonsils ar e normal in configuration. Ventricles, sulci, and cisterns: Prominent secondary to involutional change. Pituitary and sella: Partially empty sella is incidentally noted. Intracranial vasculature: Normal flow voids are maintained at the skull base. Orbits: The bony orbits are grossly intact. Orbital contents are normal in appearance noting bilatera l ocular lens implants. Sinuses and mastoids: There are large left and trace right mastoid effusions. The paranasal sinuses a re clear. Calvarium: Unremarkable. Cervical cord: Partially visualized cervical spinal cord is normal in morphology and signal intensity . IMPRESSION: 1. Significantly motion compromised examination. 2. Question a thin band of linear restricted diffusion involving the peripheral left posterior occipi rachel cortex. This could represent acute to subacute ischemia or could be artifactual given the degree of motion. There is no corresponding FLAIR signal abnormality. Clinical correlation will be required. 3. No additional findings are concerning for acute ischemia. There is no evidence of hemorrhage or ma ss effect, 4. Senescent change and remote infarcts as above. ACT 112: Negative or not required by law. Electronically signed by: Natalio Wilson M.D. 01/29/2020 7:23 AM
--- NOTE | 2020-01-29 07:56 | Magnetic Resonance Report ---
NECK MRA HISTORY: Possible stroke. Dizziness. visual distubances, confusion TECHNIQUE: Nvub-iv-hdfodq and gadolinium-enhanced MRA of the neck was performed both before and after the intravenous administration of contrast. All measurements were calculated based on NASCET criteri a. The patient was a clearance rep 4.5 cc of intravenous Gadavist. MIP images were acquired. COMPARISON STUDY: April 2010 FINDINGS: The examination is significantly motion degraded. There are possible stenotic lesions invol ving the origins of the left common carotid and right innominate arteries. There is a suspected high- grade stenosis of the proximal right internal carotid artery. There is a 40% diameter stenosis of the proximal left internal carotid artery. CT angiography is recommended in follow-up. The proximal vert ebral arteries are poorly evaluated. IMPRESSION: 1. Motion degraded study 2. Suspected stenotic lesions involving the origins of the left common carotid and right innominate a rteries. 3. Suspected high-grade stenosis of proximal right internal carotid artery 4. CT angiography is recommended in follow-up. ACT 112: Negative or not required by law. Electronically signed by: Jessee Harris M.D. 01/29/2020 7:54 AM
--- NOTE | 2020-01-29 08:06 | Magnetic Resonance Report ---
MRA OF THE INTRACRANIAL CIRCULATION WITHOUT CONTRAST CLINICAL HISTORY: visual disturbances, confusion. COMPARISON STUDY: CTA of the head May 06, 2010. Head CT January 23, 2020. TECHNIQUE: Utilizing a 1.5 Kenzie magnet and 3-D [id number]-ht-[id number] technique, unenhanced MRA of the intra cranial circulation was obtained. FINDINGS: The distal cervical and intracranial portion of the right internal carotid artery are dimin ished in caliber when compared to the left. This is unchanged and CTA of May 16, 2013. The right M1, M2 and A1 and A2 segments are patent. 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 This has slightly i ncreased in size since CT of May 16, 2010 when it measured 4 mm. An additional 2.3 mm aneurysm ar ising from the left supraclinoid ICA is unchanged since prior CTA. The left M1, M2, A1 and A2 segment s are patent. Posterior circulation is intact. The MRI of the brain will be reported separately. Left sphenoid sinus is partially opacified. No intraluminal thrombus is identified. There is no central v essel occlusion. IMPRESSION: 1. 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 No change i n an additional 2.3 mm aneurysm of the left supraclinoid ICA since prior CTA. 2. Asymmetric decreased caliber of the distal cervical and intracranial portions of the right interna l carotid artery and branches which is unchanged since prior CTA. 3. Intact posterior circulation. ACT 112: Negative or not required by law. Electronically signed by: Isidro Hudson M.D. 01/29/2020 8:04 AM
[2020-01-29] MEDS ORDERED: POTASSIUM CHLORIDE CRTAB 20 MEQ TABCR PO STA (08:15)
[2020-01-29] MEDS ORDERED: OMEGA-3 (PURIFIED FISH OIL) 1 GM CAP PO SCH (09:00)
[2020-01-29] MEDS: ASPIRIN 81 MG ECTAB PO SCH (09:28)
[2020-01-29] MEDS: FUROSEMIDE 20 MG TAB PO SCH (09:28)
[2020-01-29] MEDS: HEPARIN SOD 5,000 UNIT/0.5 ML VIAL SQ SCH ×2 (09:28→20:33)
[2020-01-29] MEDS: FERROUS FUMARATE/ASCORBIC ACID 65 MG CAPCR PO SCH (09:28)
[2020-01-29] MEDS: MULTIVITAMIN TAB PO SCH (09:30)
[2020-01-29] MEDS: FAMOTIDINE 20 MG TAB PO SCH ×2 (09:30→20:33)
[2020-01-29] MEDS: TIMOLOL MALEATE 0.25% OP SOLN 5 ML BTL OPL SCH (09:31)
[2020-01-29] MEDS: CHOLECALCIFEROL 1,000 UNITS 25 MCG TAB PO SCH (09:31)
--- NOTE | 2020-01-29 12:48 | Hospitalist Progress Note ---
Date of Service January 29, 2020 Assessment & Plan (1) Stroke: MRI did show possible peripheral left posterior occipital infarct Presented with recurrent visual symptoms suggestive of amaurosis fugax with prior history of CVA and carotid artery disease status post surgery No other focal localizing signs MRI-question a thin band of linear restricted diffusion involving the peripheral left posterior occipital cortex MRA of the neck showed stenotic lesions involving the origins of the left common carotid and right innominate arteries, suspected high-grade stenosis of proximal right internal carotid artery MRA of the head showed-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 Echo of the heart showed-normal LV size, EF 55 to 60%, RV systolic function is normal, LA is moderately dilated, mild aortic regurgitation and grade 1 diastolic dysfunction Vascular surgery has been consulted Neurology has been consulted Would likely to be benefited from Plavix and/or other anticoagulation (2) Hypotension: -Noted be hypotensive in the ED, lowest BP recorded 67/53 -Repeated taking of blood pressure did not show any better result in the emergency room or on floor -She did not have any acute symptoms with this low blood pressure -Sepsis as a possible cause for hypotension has been ruled out and the antibiotics have been discontinued -She was transferred to ICU with continued hypotension from the floor last night and she received transient infusion of Levophed -Arterial line did show blood pressure to be upper normal (3) Hypertension: She has a history of hypertension but otherwise her blood pressure was noted to be on the lower side as an outpatient She has portal arterial A-line and that documented her blood pressure to be borderline high She has not been taking any medicine for blood pressure (4) Visual disturbance: She has been complaining of episodic visual loss suggestive of amaurosis fugax since end of October Visual symptoms start with bright light followed by blindness which last for about an hour Had head CT on 01/22 that was unremarkable Likely secondary to recurrent TIAs As above (5) Chronic diastolic CHF (congestive heart failure): -Appears euvolemic, may be on the hypovolemic side given hypotension -Holding diuretics for now, monitor volume status closely (6) History of CVA (cerebrovascular accident): -Continue aspirin and statin -She does not have any residual effect from prior CVA except questionable right- sided weakness (7) COPD (chronic obstructive pulmonary disease): -No signs of acute exacerbation (8) DVT prophylaxis: -SQ Heparin Admission and Anticipated Discharge Date Admission Date: January 28, 2020 Subjective 01/29/2020 The patient was seen and examined in ICU She is a 70-year-old female with significant past medical history of COPD, history of CVA with minimal right hemiparesis, history of carotid stenosis status post CEA was admitted with visual symptoms suggestive of amaurosis fugax since end of October. She is generally weak but denies any symptoms this morning Her blood pressure remains stable Review of Systems Review of Systems: All systems reviewed and are unremarkable except as noted below Constitutional: + weakness and + weight loss Neurologic: + generalized weakness and + problem reported (On and off visual symptoms suggestive of amaurosis fugax); no confusion Physical Exam Physical Exam: Lying in bed comfortably Constitutional: + ill appearing and + thin; no acute distress Eyes: PERRL, conjunctivae normal, anicteric sclerae ENMT: external ear and nose normal, oropharynx normal Neck: trachea midline, no thyromegaly Respiratory: normal respiratory effort; no respiratory distress Auscultation: lungs clear to auscultation bilaterally Cardiovascular: Rate/Rhythm: regular rate and regular rhythm Heart Sounds: + murmur (1/6 ESM over aortic area) Gastrointestinal (Abdomen): Inspection/Auscultation: abdomen normal to inspection; abdomen not distended Percussion/Palpation: abdomen soft; abdomen nontender Musculoskeletal: No acute arthritis involving any joint Neurologic: moves all extremities; no focal motor deficits Speech / Cognition: normal speech Motor/Sensory: no tremor Psychiatric: A+Ox3, euthymic affect Lymphatic: no cervical or axillary lymphadenopathy Results & Data Results & Data ([facility]) Vital Signs (Past 12 Hours) Vital Signs Temp Pulse Pulse Resp BP Pulse Ox 01/29/20 11:30 81 20 97 01/29/20 11:15 70 19 99 01/29/20 11:00 78 21 97 01/29/20 10:45 85 18 98 01/29/20 10:30 71 21 97 01/29/20 10:15 71 20 97 01/29/20 10:00 82 21 98 01/29/20 09:45 85 24 97 01/29/20 09:30 76 19 96 01/29/20 09:15 83 19 97 01/29/20 09:00 81 21 97 01/29/20 08:45 75 19 96 01/29/20 08:30 89 23 98 01/29/20 08:15 98 H 24 96 01/29/20 08:00 98 H 25 H 94 01/29/20 07:45 94 H 19 94 01/29/20 07:30 36.7 C 98 H 24 95 01/29/20 07:15 68 13 96 01/29/20 07:00 80 21 96 01/29/20 06:00 85 18 156/64 H 96 01/29/20 05:00 79 18 175/67 H 94 01/29/20 04:00 36.6 C 104 H 18 188/78 H 94 01/29/20 03:00 81 18 146/61 H 92 01/29/20 02:16 133 H 18 172/73 H 93 01/29/20 01:24 36.7 C 103 H 20 189/75 H 91 Laboratory Results Short CBC 01/28/20 01/29/20 01/29/20 Range/Units 14:20 01:56 04:18 WBC 8.78 6.29 6.66 (4.8-10.8) K/uL Hgb 13.9 12.2 12.0 (12.0-16.0) g/dL Hct 41.9 36.6 L 37.5 (37-47) % Plt Count 234 183 200 (130-400) K/uL BMP 01/28/20 01/29/20 01/29/20 14:20 01:56 04:18 Sodium 138 142 141 Potassium 3.9 3.1 L D 3.3 L Chloride 103 109 H 110 H Carbon Dioxide 29 24 23 BUN 11 10 10 Creatinine 1.18 1.00 0.92 Glucose 121 H 130 H 105 H Calcium 9.4 7.7 L D 7.9 L Cardiac Enzymes 01/28/20 Range/Units 14:20 Troponin I < 0.015 (0-0.045) ng/ml Liver Function 01/28/20 01/29/20 Range/Units 14:20 01:56 Total Bilirubin 1.0 1.0 (0.2-1) mg/dl Direct Bilirubin 0.4 H (0-0.2) mg/dl AST 69 H 48 H (15-37) U/L ALT 65 48 (12-78) U/L Alkaline Phosphatase 81 66 (45-117) U/L Albumin 3.9 3.1 L (3.4-5.0) gm/dl Urine 01/28/20 Range/Units 15:16 Urine Color Yellow Urine Appearance Clear (Clear) Urine pH 6.0 (4.5-7.5) Ur Specific [place] 1.009 (1.000-1.030) Urine Protein 2+ H (Negative) Urine Glucose (UA) Negative (Negative) Medications Administered Current Inpatient Medications Acetaminophen (Acetaminophen 325 Mg Tab) 650 mg PO Q4H PRN PRN Reason: Pain or Fever Stop: 02/27/20 18:44 Albuterol (Albut/Ipratrop 3mg/0.5mg Neb 3 Ml Vial) 3 ml NEB Q4R PRN PRN Reason: Shortness Of Breath Or Wheezing Stop: 02/28/20 06:59 Aspirin (Aspirin 81 Mg Ectab) 81 mg PO DAILY [facility] Stop: 02/28/20 08:59 Last Admin: 01/29/20 09:28 Dose: 81 mg Documented by: Atorvastatin Calcium (Atorvastatin 40 Mg Tab) 80 mg PO HS [facility]ORY Stop: 02/27/20 20:59 Last Admin: 01/28/20 22:46 Dose: 80 mg Documented by: Docusate Sodium/Ferrous Fumarate (Ferrous Fumarate/Ascorbic Acid 65 Mg Capcr) 65 mg PO DAILY [facility]ORY Stop: 02/28/20 08:59 Last Admin: 01/29/20 09:28 Dose: 65 mg Documented by: Famotidine (Famotidine 20 Mg Tab) 20 mg PO BID [facility] Stop: 02/27/20 20:59 Last Admin: 01/29/20 09:30 Dose: 20 mg Documented by: Furosemide (Furosemide 20 Mg Tab) 10 mg PO QAM [facility] Stop: 02/28/20 08:59 Last Admin: 01/29/20 09:28 Dose: 10 mg Documented by: Heparin Sodium (Porcine) (Heparin Sod 5,000 Unit/0.5 Ml Vial) 5,000 units SQ Q12 [facility] Stop: 02/27/20 20:59 Last Admin: 01/29/20 09:28 Dose: 5,000 units Documented by: Sodium Chloride (Nss 1000ml) 1,000 mls @ 100 mls/hr IV .Q10H [facility] Stop: 02/27/20 17:29 Last Admin: 01/29/20 12:00 Dose: 100 mls/hr Documented by: Norepinephrine Bitartrate 8 mg (/ Dextrose) 508 mls @ 0 mls/hr IV .Q0M MALLORY; Protocol Stop: 02/27/20 23:44 Last Titration: 01/29/20 01:36 Dose: 0 mcg/kg/min, 0 mls/hr Documented by: Multivitamins (Multivitamin Tab) 1 tab PO QAM [facility] Stop: 02/28/20 08:59 Last Admin: 01/29/20 09:30 Dose: 1 tab Documented by: Timolol Maleate (Timolol Maleate 0.25% Op Soln 5 Ml Btl) 1 drops OPL QAM [facility] Stop: 02/28/20 08:59 Last Admin: 01/29/20 09:31 Dose: 1 drops Documented by: Vitamin D (Cholecalciferol 1,000 Units 25 Mcg Tab) 2,000 units PO DAILY [facility] Stop: 02/28/20 08:59 Last Admin: 01/29/20 09:31 Dose: 2,000 units Documented by:
--- NOTE | 2020-01-29 13:12 | Consultation ---
Date of Consultation January 29, 2020 Assessment & Plan (1) Stenosis of right internal carotid artery: MRI suggests a significant stenosis of the origin of the right internal carotid artery. Her left carotid endarterectomy site is widely patent. At this point recommend a right carotid enterectomy.Will wait for neurology consult before determining the timing of the endarterectomy. (2) Stenosis of artery of upper extremity: This patient presents with what appears to be bilateral upper extremity arterial stenosis. She most likely has a right innominate stenosis or occlusion in the left subclavian artery occlusion or stenosis.Will order a CTA to better define these lesions.She is slightly symptomatic in the right hand. She does claim that her right hand gets weak when she uses it. Depending what these lesions look like on the CTA, we may want to treat at least 1 or lesions that get better monitoring of her blood pressure for control. Further decisions as far as her management and what lesions need to be treated first will be determined by the CTA and neurology recommendations. Thank you very much for letting us participate in the care of this patient. History of Present Illness Reason for Consultation: Right carotid stenosis and upper extremity arterial stenosis Attending Physician: Tacos Connolly MD History of Present Illness Ms. Núñez is a 70-year-old female with past medical history of bilateral carotid artery stenosis and a left carotid endarterectomy in the past. She does have right upper extremity weakness. She also has a history of GERD with a history of perforated gastric ulcer. She presented to the emergency department with complaints of weakness for 2 weeks which was generalized, lightheadedness upon standing, and intermittent episodes of blurred vision lasting for short period of time. She was seen in the emergency department 2 days prior to this with the same complaints but deferred an admission to the hospital. She does claim that her right arm does tire when she uses it but does not cause her any pain.Left arm is asymptomatic according to her.She is right-handed. MRA obtained showed the possibility of an innominate artery stenosis and stenosis of the right internal carotid artery. She was found to be hypotensive on the floorWith symptoms developing. She was transferred to the intensive care unit at which time an art line was placed and her pressures were found to be in the hypertensive range on levofed. At present she denies any dizziness, loss of consciousness, or lightheadedness. She denies recent headaches, illness or fevers, cough or sore throat, shortness of breath, palpitations, chest pain, abdominal pain, nausea or vomiting, or diarrhea. Allergies Allergy/AdvReac Type Severity Reaction Status Date / Time hydrocodone Allergy Intermediate CONFUSION Verified 01/23/20 12:40 ramipril Allergy Intermediate Nausea Verified 01/23/20 12:40 Sulfa (Sulfonamide Allergy Intermediate Nausea Verified 01/23/20 12:40 Antibiotics) Home Medications Home Medications Medication Instructions Recorded Confirmed Type atorvastatin 80 mg PO HS 02/22/18 01/28/20 History multivitamin 1 tab PO QAM 02/22/18 01/28/20 History omega 5-njf-vpd-fish oil [Fish Oil] 1,000 mg PO QAM 02/22/18 01/28/20 History timolol maleate 1 drp [facility] QA 08/21/18 01/28/20 History acetaminophen [Tylenol Extra 500 mg PO QID PRN 10/10/18 01/28/20 History Strength] furosemide [Lasix] 10 mg PO DAILY 11/14/18 01/28/20 History levalbuterol tartrate 45 2 puffs INHALATION Q6H PRN #15 gm 09/23/19 01/28/20 Rx mcg/actuation aerosol inhaler famotidine 20 mg PO BID 01/23/20 01/28/20 History aspirin [Aspir-81] 81 mg PO DAILY 01/28/20 01/28/20 History cholecalciferol (vitamin D3) 50 mcg PO DAILY 01/28/20 01/28/20 History iron,carbonyl-vitamin C [Vitron-C] 1 tab PO DAILY 01/28/20 01/28/20 History spironolactone 12.5 mg PO DAILY 01/28/20 01/28/20 History Patient History Medical History Anemia HX OF ANEMIA Atrial ectopic tachycardia [place] FOLLOWS WITH DR CONDON - LAST SEEN WEEK OF 09/30 Carotid stenosis S/P LEFT CEA (2012)- FOLLOWS WITH S IN [place] Chronic diastolic CHF (congestive heart failure) COPD (chronic obstructive pulmonary disease) GERD (gastroesophageal reflux disease) H/O gastric ulcer History of CVA (cerebrovascular accident) Hyperlipidemia Hypertension PVD (peripheral vascular disease) Surgical History H/O exploratory laparotomy 08/25/2018. Done 2/2 perforated gastric ulcer. Flynn 3, Grade 1 view. 7.5 ETT placed. no issues. History of carotid endarterectomy LEFT CEA (2012) History of cataract extraction RIGHT AND LEFT History of hand surgery History of left hip replacement History of tonsillectomy Family History Other Kidney disease Social History Smoking Status: Former smoker Tobacco Type: Cigarettes Smoking End Date: 1997; Second Hand Exposure: No; Do You Dip or Chew Tobacco: No; Tobacco Cessation Education Requested by Patient: No Hx Alcohol Use: Yes Alcohol type: wine Hx Substance Use: No Preferred Language: Mauritanian Communication Ability: Effective Visual Impairment: No Limitations Steward/Stewardess Bath Required: No Beliefs That Will Affect Care: None marital status: Current Living Situation: Spouse Other Information That Helps Us Care for You: No Feels Safe at Home: Yes Safety Concerns: Feels Safe At This Time Assistive Devices: None Review of Systems Review of Systems: All systems reviewed & are unremarkable except as noted in HPI & below Physical Exam Constitutional: WD/WN, vitals as above Neck: trachea midline Respiratory: normal respiratory effort, lungs clear to auscultation Cardiovascular: Rate/Rhythm: regular rate and regular rhythm Vessels: + carotid bruit and femoral pulses present; + radial pulses abnormal Extremities: + abnormal capillary refill (Cap refill decrease in both upper extremities. Lower extremities are normal) Gastrointestinal (Abdomen): Inspection/Auscultation: abdomen normal to inspection Percussion/Palpation: abdomen soft; abdomen nontender Musculoskeletal: Extremities: extremities normal to inspection Skin: no rashes, warm and dry Neurologic: CN's II-XI intact bilaterally, moves all extremities and + focal motor deficit (Slight weakness of the right upper extremity.) Psychiatric: Orientation: alert and oriented x 3 Results & Data ([facility]) Vital Signs (Past 12 Hours) Vital Signs Temp Pulse Pulse Resp BP Pulse Ox 01/29/20 11:30 81 20 97 01/29/20 11:15 70 19 99 01/29/20 11:00 78 21 97 01/29/20 10:45 85 18 98 01/29/20 10:30 71 21 97 01/29/20 10:15 71 20 97 01/29/20 10:00 82 21 98 01/29/20 09:45 85 24 97 01/29/20 09:30 76 19 96 01/29/20 09:15 83 19 97 01/29/20 09:00 81 21 97 01/29/20 08:45 75 19 96 01/29/20 08:30 89 23 98 01/29/20 08:15 98 H 24 96 01/29/20 08:00 98 H 25 H 94 01/29/20 07:45 94 H 19 94 01/29/20 07:30 36.7 C 98 H 24 95 01/29/20 07:15 68 13 96 01/29/20 07:00 80 21 96 01/29/20 06:00 85 18 156/64 H 96 01/29/20 05:00 79 18 175/67 H 94 01/29/20 04:00 36.6 C 104 H 18 188/78 H 94 01/29/20 03:00 81 18 146/61 H 92 01/29/20 02:16 133 H 18 172/73 H 93 01/29/20 01:24 36.7 C 103 H 20 189/75 H 91
[2020-01-29] MEDS ORDERED: Nursing to Pharmacy Communication SCH (14:30)
--- NOTE | 2020-01-29 14:43 | Electroencephalogram ---
EEG Procedure Note Date of Service January 29, 2020 Start / End Times Start Time: 0 130 End Time: 0 155 Referring Physician Ronn Lubin History Episodic visual loss with history of old CVA left hemisphere question post CVA s Home Medication List Home Medications Medication Instructions Recorded Confirmed Type atorvastatin 80 mg PO HS 02/22/18 01/28/20 History multivitamin 1 tab PO QAM 02/22/18 01/28/20 History omega 5-drv-eva-fish oil [Fish Oil] 1,000 mg PO QAM 02/22/18 01/28/20 History timolol maleate 1 drp OPL QAM 08/21/18 01/28/20 History acetaminophen [Tylenol Extra 500 mg PO QID PRN 10/10/18 01/28/20 History Strength] furosemide [Lasix] 10 mg PO DAILY 11/14/18 01/28/20 History levalbuterol tartrate 45 2 puffs INHALATION Q6H PRN #15 gm 09/23/19 01/28/20 Rx mcg/actuation aerosol inhaler famotidine 20 mg PO BID 01/23/20 01/28/20 History aspirin [Aspir-81] 81 mg PO DAILY 01/28/20 01/28/20 History cholecalciferol (vitamin D3) 50 mcg PO DAILY 01/28/20 01/28/20 History iron,carbonyl-vitamin C [Vitron-C] 1 tab PO DAILY 01/28/20 01/28/20 History spironolactone 12.5 mg PO DAILY 01/28/20 01/28/20 History Inpatient Medication List Aspirin (Aspirin 81 Mg Ectab) 81 mg PO DAILY [facility] Stop: 02/28/20 08:59 Last Admin: 01/29/20 09:28 Dose: 81 mg Documented by: [id number] Atorvastatin Calcium (Atorvastatin 40 Mg Tab) 80 mg PO HS [facility] Stop: 02/27/20 20:59 Last Admin: 01/28/20 22:46 Dose: 80 mg Documented by: [id number] Docusate Sodium/Ferrous Fumarate (Ferrous Fumarate/Ascorbic Acid 65 Mg Capcr) 65 mg PO DAILY [facility] Stop: 02/28/20 08:59 Last Admin: 01/29/20 09:28 Dose: 65 mg Documented by: [id number] Famotidine (Famotidine 20 Mg Tab) 20 mg PO BID [facility] Stop: 02/27/20 20:59 Last Admin: 01/29/20 09:30 Dose: 20 mg Documented by: [id number] Admin: 01/28/20 22:45 Dose: 20 mg Documented by: [id number] Furosemide (Furosemide 20 Mg Tab) 10 mg PO QAM [facility] Stop: 02/28/20 08:59 Last Admin: 01/29/20 09:28 Dose: 10 mg Documented by: [id number] Heparin Sodium (Porcine) (Heparin Sod 5,000 Unit/0.5 Ml Vial) 5,000 units SQ Q12 [facility] Stop: 02/27/20 20:59 Last Admin: 01/29/20 09:28 Dose: 5,000 units Documented by: [id number] Cosigned by: [id number] Admin: 01/28/20 22:45 Dose: 5,000 units Documented by: [id number] Cosigned by: [id number] Sodium Chloride (Nss 1000ml) 1,000 mls @ 100 mls/hr IV .Q10H [facility] Stop: 02/27/20 17:29 Last Admin: 01/29/20 12:00 Dose: 100 mls/hr Documented by: [id number] Infusion: 01/29/20 11:43 Dose: 100 mls/hr Documented by: [id number] Admin: 01/29/20 01:43 Dose: 100 mls/hr Documented by: [id number] Infusion: 01/29/20 01:43 Dose: 100 mls/hr Documented by: [id number] Infusion: 01/28/20 22:44 Dose: 100 mls/hr Documented by: [id number] Infusion: 01/28/20 21:30 Dose: 0 mls/hr Documented by: [id number] Admin: 01/28/20 18:00 Dose: 100 mls/hr Documented by: [id number] Norepinephrine Bitartrate 8 mg (/ Dextrose) 508 mls @ 0 mls/hr IV .Q0M [facility]; Protocol Stop: 02/27/20 23:44 Last Titration: 01/29/20 01:36 Dose: 0 mcg/kg/min, 0 mls/hr Documented by: [id number] Titration: 01/29/20 00:20 Dose: 0.07 mcg/kg/min, 13.5 mls/hr Documented by: [id number] Admin: 01/29/20 00:10 Dose: 0.05 mcg/kg/min, 9.7 mls/hr Documented by: [id number] Cosigned by: [id number] Multivitamins (Multivitamin Tab) 1 tab PO QAM [facility] Stop: 02/28/20 08:59 Last Admin: 01/29/20 09:30 Dose: 1 tab Documented by: [id number] Timolol Maleate (Timolol Maleate 0.25% Op Soln 5 Ml Btl) 1 drops OPL QAM [facility] Stop: 02/28/20 08:59 Last Admin: 01/29/20 09:31 Dose: 1 drops Documented by: [id number] Vitamin D (Cholecalciferol 1,000 Units 25 Mcg Tab) 2,000 units PO DAILY [facility] Stop: 02/28/20 08:59 Last Admin: 01/29/20 09:31 Dose: 2,000 units Documented by: [id number] Discontinued Medications Gadobutrol (Gadobutrol 65ml Vial) 4.5 ml IV ONCE ONE Stop: 01/28/20 22:53 Last Admin: 01/28/20 22:53 Dose: 4.5 ml Documented by: [id number] Sodium Chloride (Nss) 500 mls @ 999 mls/hr IV .Q31M ONE Stop: 01/28/20 15:45 Last Infusion: 01/28/20 16:00 Dose: 0 mls/hr Documented by: [id number] Admin: 01/28/20 15:25 Dose: 999 mls/hr Documented by: [id number] Sodium Chloride (Nss 1000ml) 250 mls @ 999 mls/hr IV .Q16M ONE Stop: 01/28/20 16:38 Last Infusion: 01/28/20 17:34 Dose: 0 mls/hr Documented by: [id number] Admin: 01/28/20 16:27 Dose: 999 mls/hr Documented by: [id number] Lorazepam (Ativan) 1 mg in 2 mls @ 2 mls/min IV PRN STA Stop: 01/28/20 18:41 Last Admin: 01/28/20 20:52 Dose: 2 mls/min Documented by: [id number] Lorazepam (Ativan) 0.25 mg in 0.5 mls @ 0.5 mls/min IV NOW STA Stop: 01/28/20 21:52 Last Admin: 01/28/20 22:10 Dose: 0.5 mls/min Documented by: [id number] Sodium Chloride (Nss 1000ml) 1,000 mls @ 999 mls/hr IV .Q1H1M [facility] Stop: 01/29/20 00:30 Last Infusion: 01/29/20 02:41 Dose: 0 mls/hr Documented by: [id number] Admin: 01/28/20 23:31 Dose: 999 mls/hr Documented by: [id number] Vancomycin HCl 1,250 mg/ (Sodium Chloride) 275 mls @ 125 mls/hr IV ONE ONE; Protocol Stop: 01/29/20 01:56 Last Infusion: 01/29/20 04:27 Dose: 0 mls/hr Documented by: [id number] Admin: 01/29/20 01:42 Dose: 125 mls/hr Documented by: [id number] Piperacillin Sod/Tazobactam (Sod 4.5 gm/ Dextrose) 120 mls @ 240 mls/hr IV ONE ONE; Protocol Stop: 01/29/20 00:13 Last Infusion: 01/29/20 02:12 Dose: 0 mls/hr Documented by: [id number] Admin: 01/29/20 01:42 Dose: 240 mls/hr Documented by: [id number] Potassium Chloride (K Mookie / Wtr) 10 meq in 100 mls @ 100 mls/hr IV Q1H [facility] Stop: 01/29/20 07:25 Last Infusion: 01/29/20 11:50 Dose: 0 mls/hr Documented by: [id number] Admin: 01/29/20 09:27 Dose: 50 mls/hr Documented by: [id number] Infusion: 01/29/20 08:25 Dose: 50 mls/hr Documented by: [id number] Admin: 01/29/20 06:25 Dose: 50 mls/hr Documented by: [id number] Infusion: 01/29/20 06:25 Dose: 50 mls/hr Documented by: [id number] Infusion: 01/29/20 05:01 Dose: 50 mls/hr Documented by: [id number] Admin: 01/29/20 04:47 Dose: 100 mls/hr Documented by: [id number] Infusion: 01/29/20 04:47 Dose: 100 mls/hr Documented by: [id number] Admin: 01/29/20 03:49 Dose: 100 mls/hr Documented by: [id number] Lorazepam (Lorazepam 2 Mg/4 Ml Vial) Confirm Administered Dose 2 mg .ROUTE .[facility] ONE Stop: 01/28/20 20:50 Last Admin: 01/28/20 20:54 Dose: Not Given Documented by: [id number] Description This is a 21 electrode EEG with a single channel dedicated to limited EKG. The electrodes were placed in accordance with the International 10-20 system. This EEG was performed as a bedside recording and is of good technical quality. Drowsiness light sleep not recorded. Video analysis of patient movement behavior was obtained. Photic stimulation was performed. There is evidence for normal background rhythm in the alpha range of up to moderate symmetric frequency and 30 V maximal amplitude. This maximum posterior head regions bilaterally symmetrical polymorphic mid frequency theta activity seen symmetrically over the central regions. Beta activity seen bifrontally. Functional is most minimal driving response without a myogenic or photoparoxysmal component No time during waking tracing is evidence for potential epileptogenic activity Interpretation Normal EEG during wakefulness Clinical Correlation normal EEG during wakefulness specifically reveals no evidence for focal generalized cephalopathy without evidence for potential epileptogenic activity Ronn Lubin MD
--- NOTE | 2020-01-29 16:48 | Communication Note ---
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, has hyperlipidemia GERD known carotid stenosis, peripheral vascular disease, atrial tachycardia, and has had prior small aneurysms demonstrated on her carotid systems in the past when she presented with her initial stroke She now is post cataract replacement with monovision lenses several months ago and has had vague visual complaints ever since but over the past 2 weeks has had episodes of confusion and vague Jacinto defined visual obscurations and brightness without accompanying headache but apparently with episodes of staring and perhaps with some visual hallucinations All of this is very vague the symptoms had accelerated to the point that she was brought to the hospital prior to the weekend was offered admission but then refused only to reappear yesterday with a similar series of events and this time was found to have barely detectable blood pressure and was admitted to the hospital for imaging studies CT angiographic studies etc. According to what I can obtain history was from her she is always been difficult to obtain blood pressure in an office setting and I refer the reader to the circus train supervisor notes which indicate that in his opinion this is due to rigidity of the arterial fair as he was called to address the question had to do an intra-arterial blood pressure and found her to be actually on the hypertensive side There was a question of whether her symptoms had anything to do with her blood pressure anyway and she is remained pretty much asymptomatic although does describe 1 episode of visual brightness that occurred several hours ago According to her she appears much as she has for the last several weeks i.e. is a little dull easily distractible seems to be "not herself" but otherwise she does not describe any significant symptoms and does not seem to be aware of this assessment There is been no real change or addition to her home medications which include Tylenol aspirin atorvastatin cholecalciferol, famotidine, Lasix, iron, albuterol inhaler multivitamins omega-3 fatty fatty acids spironolactone and timolol eyedrops Review of systems reveals only the episodic visual disturbances since the cataract replacement worse over the past several weeks with at least one episode of probable visual hallucinations and a general decline in her overall mental status with memory loss easy distractibility but no abnormal involuntary movements and with the episodes where she appears to be staring and is less responsive This latter history prompted me to obtain an EEG today which was normal but during the test she has had no episodes of appear to be clinically asymptomatic Studies thus far have shown a possible artifact versus new cerebral infarction in the left occipital lobe, the old occipital parietal infarct, scattered white matter changes, and suspected high-grade stenosis of right internal carotid artery, somewhat hypoplastic right intracranial internal carotid artery vessels unchanged from prior studies and relatively stable small aneurysms as described in the reports since 2010 but no new intracranial occlusions etc. are seen On exam blood pressure 156/64 pulse is 81 respirations are 20 she is afebrile with O2 saturations 97% She appears somewhat dazed and detached yet answers most of my questions. At times she digresses often to some tangential issues seems to have a hard time keeping on focus but denies any specific complaints and has difficulty describing her visual system symptoms and requires some help from her Cranial nerves appear to be intact with normal facial movements normal facial sensation clear speech normal eye movements. At times I think there is some neglect of the right visual field but this is not consistent and on confrontation testing anderson seem full. Speech is clear. There is no drift or pronation sign tremor or tics or choreiform activity. I did not test gait but she moves all extremities well and according to her has been up walking in the pierson without any issues reflexes are hypoactive but present toes are downgoing no Kapil signs are seen strength testing is normal and sensation is intact to vibration light touch and position This appears to be a mild encephalopathy of nonspecific type in about 2 weeks duration punctuated by episodic visual disturbances that could be partial seizures but the EEG does not demonstrate anything (a very short duration inpatient EEG however may well be negative particular if no symptoms occurred during the recording) and is valuable only and revealing no evidence for more generalized encephalopathy and nothing focal and no evidence for potentially epileptogenic patterns. I am to suggest we repeat another MRI noncontrast just to make certain there was no new infarction in the left occipital lobe Otherwise the differential diagnosis is unclear and I wonder about an early emerging cognitive impairment syndrome of uncertain cause Dr. Prado will be making rounds tomorrow and reassessing the situation Ronn Lubin MD
[2020-01-29] MEDS: ATORVASTATIN 40 MG TAB PO SCH (20:33)
[2020-01-29] MEDS ORDERED: LORazepam 0.25 MG/0.5 ML VIAL IV STA (20:53)
[2020-01-30 04:35] LABS: Basophils # (auto) 0.02 K/uL (0-0.2); Basophils % (auto) 0.3 %; Eosinophils # (auto) 0.31 K/uL (0-0.5); Eosinophils % (auto) 4.3 %; Hematocrit (blood only) 36.9 % (37-47); Hemoglobin 12.3 g/dL (12.0-16.0); Immature Granulocytes # (auto) 0.01 K/uL (0.00-0.02); Immature Granulocytes % (auto) 0.1 %; Lymphocytes # (auto) 1.58 K/uL (1.2-3.4); Mean Corpuscular Hemoglobin 34.5 pg (25-34); Mean Corpuscular Hgb Conc 33.3 g/dL (32-36); Mean Corpuscular Volume 103.4 fL (80-100); Mean Platelet Volume 9.5 fL (7.4-10.4); Monocytes # (auto) 0.73 K/uL (0.11-0.59); Monocytes % (auto) 10.2 %; Neutrophils # (auto) 4.52 K/uL (1.4-6.5); Neutrophils % (auto) 63.1 %; Platelet Count 183 K/uL (130-400); RDW Coefficient of Variation 12.9 % (11.5-14.5); RDW Standard Deviation 48.6 fL (36.4-46.3); Red Blood Count 3.57 M/uL (4.2-5.4); White Blood Count 7.17 K/uL (4.8-10.8)
[2020-01-30 04:59] LABS: BUN Creatinine Ratio 9.1 (10-20); Calcium 8.6 mg/dl (8.5-10.1); Creatinine Clr Calc Pharmacy 44.8 ml/min; Est GFR (African American) 73.6; Est GFR (Non-African American) 63.5; Magnesium 1.6 mg/dl (1.8-2.4); Phosphorus 2.2 mg/dl (2.5-4.9); Potassium 3.4 mmol/L (3.5-5.1)
--- NOTE | 2020-01-30 05:31 | Critical Care Progress Note ---
Date of Service January 30, 2020 Assessment & Plan (1) Hypotension: Reason Critically Ill: 70F who presented to ICU with concerns for significant symptomatic hypotension NEURO: [facility] ICU:Negative Carotid artery stenosis/CVA/patient with history of bilateral carotid artery stenosis with left endarterectomy, prior CVA with right upper extremity weakness and dysarthria deficits - MRA neck with suspected stenotic lesions involving origins of L common carotid and R innominate arteries. Also noting suspected high-grade stenosis of proximal R internal carotid. 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 - Continue ASA and Atorvastatin CARDIAC: -Initial concerns of hypotension while patient was on the floor and given bolus and started on levophed -R fem line was placed for BP monitoring which showed patient was relatively hypertensive -No signs of septic shock, cortisol 11, patient had denied hx of steroid use -Suspect difficulty obtaining BP due to significant vascular disease and arterial sclerosis and calcification -HfPEf - continue patients home lasix dose -Echo as above RESPIRATORY: -Hx COPD, patient continues to be asymptomatic on room air -PRN duoneb GI: -Continue Famotidine RENAL/LYTES: -Hypomag/phos/potassium -Repleted this AM : -Camacho inserted, strict I/O ENDO: -TSH WNL -ICU hyperglycemic protocol HEME: -HH within normal limits ID: -No signs of infection -Blood cultures NGTD -Will hold on abx therapy LINES/IV ACCESS: Peripheral IVs, A line CODE STATUS: Full DVT PROPHYLAXIS: SCDs DISPO: Stable for downgrade out of ICU Thank you for allowing us to participate in the care of this patient. Please refer to my attending physician's documentation for any further recommendations. (2) Hypertension: (3) Hyperlipidemia: (4) Stenosis of right internal carotid artery: (5) COPD (chronic obstructive pulmonary disease): (6) Chronic diastolic CHF (congestive heart failure): (7) Carotid stenosis: (8) PVD (peripheral vascular disease): Admission and Anticipated Discharge Date Admission Date: January 28, 2020 Supervising Physician Co-Signing Physician Notes Dr. Arenas was resident physician during care of patient. I separately evaluated patient for flores portions of the history and the exam. I was present during the critical portion of medical decision making, and I discussed the case with the resident. I generally agree with the findings and plan. Patient's hypotension has remained resolved. She has significant vasculopathies that will be reviewed and possibly intervened upon by vascular surgery. She is stable for downgrade out of the ICU. Subjective Patient seen and examined at the bedside this morning. Patient noting that she is feeling better and is not having any dizziness nor has she had more episodes of dizziness since arrival to the ICU. Patient does still note her chronic R arm pain. She also states that when using her L hand she does feel as though it gets sore closer to the shoulder the longer she uses it, but that it does not correlate with her dizzy spells or visual changes. Currently denies any SOB, chest pain, abdominal pain, fever, chills. Review of Systems Constitutional: + weakness; no fever and no chills Eyes: no worsening vision Respiratory: no cough and no dyspnea Cardiovascular: no chest pain and no palpitations Gastrointestinal: no abdominal pain, no nausea and no vomiting Neurologic: + localized weakness (RUE ); no headache(s) Physical Exam Constitutional: no acute distress Eyes: PERRL, conjunctivae normal, anicteric sclerae Respiratory: normal respiratory effort, lungs clear to auscultation Cardiovascular: Rate/Rhythm: regular rate and regular rhythm Heart Sounds: + murmur (2/6 SHABBIR) Gastrointestinal (Abdomen): Inspection/Auscultation: abdomen normal to inspection and normal bowel sounds; abdomen not distended Percussion/Palpation: abdomen soft; abdomen nontender Musculoskeletal: RUE 4/5 on muscle strength testing Otherwise strength 5/5 Skin: Femoral Arterial line in place, clean and dry Neurologic: PERRL, EOMI, accommodation nl, no face palsy, no dysarthria moves all extremities Psychiatric: A+Ox3, euthymic affect Results & Data Results & Data ([facility]) Vital Signs (Past 12 Hours) Vital Signs Temp Pulse Resp BP Pulse Ox 01/30/20 05:00 82 19 95 01/30/20 04:00 36.7 C 82 15 94 01/30/20 03:00 77 14 95 01/30/20 02:00 80 18 95 01/30/20 01:00 94 H 19 95 01/30/20 00:00 36.8 C 92 H 26 H 97 01/29/20 23:00 109 H 25 H 96 01/29/20 22:53 103 H 20 183/90 H 94 01/29/20 21:00 95 H 22 96 01/29/20 20:00 36.6 C 97 H 21 98 01/29/20 19:00 95 H 21 98 01/29/20 18:00 89 24 97 Resident Activity Tracking Resident Involvement: Resident Care Provided Care Provided: Adult Hospital Medicine
[2020-01-30] MEDS ORDERED: POTASSIUM PHOS 3 MMOL/1 ML INFUSION IV STA (07:40)
--- NOTE | 2020-01-30 07:59 | Magnetic Resonance Report ---
MRI OF THE BRAIN WITHOUT CONTRAST CLINICAL HISTORY: follow up on potential left occipital cva COMPARISON STUDY: MRI of the brain January 28, 2020. PET/CT January 23, 2020. TECHNIQUE: Utilizing a 1.5 Kenzie magnet and dedicated coil, multiplanar, multiecho imaging of the bra in was performed without IV contrast. FINDINGS: Note is made of several small gyral foci of restricted diffusion within the left occipital lobe which are more conspicuous than on MRI of January 28, 2020. Mild associated corresponding T2 h yperintensity is noted. No mass effect. No hemorrhage. No additional foci of acute infarction are not ed. Ventricular system is unremarkable. An old left frontal lobe infarct is noted. There is moderate small vessel disease. No extra axial collections are present. The basilar cisterns are patent. IMPRESSION: 1. Slight increase in conspicuity of several small foci of acute infarction within the left occipital lobe since previous MRI. No mass effect. No hemorrhage. 2. Old left frontal lobe infarct. Moderate small vessel disease. ACT 112: Negative or not required by law. Electronically signed by: Isidro Hudson M.D. 01/30/2020 7:58 AM
[2020-01-30] MEDS ORDERED: POTASSIUM PHOSPHATE 21 MMOL in SODIUM CHLORIDE 0.9% 500 ML IV ONE (08:00)
[2020-01-30] MEDS: MAGNESIUM SULFATE / D5W 1 GM/100 ML BAG IV SCH ×4 (08:56→16:42)
[2020-01-30] MEDS: FAMOTIDINE 20 MG TAB PO SCH ×2 (09:09→20:17)
[2020-01-30] MEDS: MULTIVITAMIN TAB PO SCH (09:09)
[2020-01-30] MEDS: TIMOLOL MALEATE 0.25% OP SOLN 5 ML BTL OPL SCH (09:09)
[2020-01-30] MEDS: CHOLECALCIFEROL 1,000 UNITS 25 MCG TAB PO SCH (09:10)
[2020-01-30] MEDS: FUROSEMIDE 20 MG TAB PO SCH (09:12)
[2020-01-30] MEDS: FERROUS FUMARATE/ASCORBIC ACID 65 MG CAPCR PO SCH (09:12)
[2020-01-30] MEDS: HEPARIN SOD 5,000 UNIT/0.5 ML VIAL SQ SCH ×2 (09:12→20:17)
[2020-01-30] MEDS: ASPIRIN 81 MG ECTAB PO SCH (09:12)
--- NOTE | 2020-01-30 09:23 | Billing Data ---
Date of Service January 30, 2020 Coding Level of Care Code 39103 Subseq Hosp Care Lvl 3
[2020-01-30] MEDS ORDERED: POTASSIUM CHLORIDE CRTAB 20 MEQ TABCR PO SCH (10:00)
--- NOTE | 2020-01-30 12:55 | Progress Notes ---
DATE: 01/30/2020 NEUROLOGY CONSULTATION FOLLOWUP NOTE SUBJECTIVE: The patient was seen and examined. No acute events noted overnight. The patient was transferred from the ICU today. Reports feeling better with no complaints or concerns. OBJECTIVE: VITAL SIGNS: Blood pressure 183/90, pulse 78, respiratory rate 21, temperature 36.7 degrees Celsius, oxygen saturation is 93% on room air. EXAM: Constitutional: appearance normally developed Face: normocephalic and atraumatic Eyes: normal lids, normal conjunctiva Neck: supple Respiratory: normal effort Cardiovascular: normal pulses Abdomen: non distended Skin: no rashes, lesions, or ulcers noted Psychiatric: normal mood and normal affect NEUROLOGIC EXAMINATION: Appearance: no acute distress Orientation: awake, alert and oriented x 3 Mental Status: alert Attention: normal Knowledge: appropriate Language: no aphasia Speech: no dysarthria Cranial Nerves: CN 2 - no visual defect on confrontation and pupils round, equal, reactive to light CN 3, 4, 6 - extra-ocular movements intact CN 5 - facial sensation intact CN 7 - no facial asymmetry CN 8 - intact hearing CN 9, 10 - palate symmetric CN 11 - good shoulder shrug CN 12 - tongue midline Gait: deferred Coordination: no ataxia with finger to nose testing Sensory: intact and symmetric to light touch Muscle Tone: normal Muscle exam: Reflexes: DIAGNOSTIC TESTING: Routine EEG showed no evidence of epileptiform activity. Urinalysis showed 2+ protein, 10-20 epithelial cells. MRI of the brain showed slight increase in conspicuity of several small foci of acute infarction within the left occipital lobe since previous MRI. No mass effect, no hemorrhage. Old left frontal lobe infarct. Moderate small vessel disease. MRA of the head and neck showed high-grade stenosis of the proximal right internal carotid artery. ASSESSMENT AND PLAN: A 70-year-old woman with prior left middle cerebral artery ischemic stroke, status post carotid endarterectomy on the left, recently admitted to the hospital for evaluation of intermittent visual changes. MRI and MRA imaging shows an acute embolic-appearing stroke in the left occipital lobe as well as a high-grade stenosis of the proximal right internal carotid artery. Recommend dual antiplatelet therapy, aspirin 81 mg daily and Plavix 75 mg daily for 21 days and then Plavix 75 mg daily. Agree with continuing current dose of Lipitor. Recommend starting Keppra 500 mg BID for concern for complex partial seizures. Would recommend cardiac event monitor as an outpatient, may consider ambulatory EEG as an outpatient. Vascular surgery follow up as outpatient. Neurology follow up with Dr. Lubin or Layne Davenport in 4-8 weeks. KARISHMA
--- NOTE | 2020-01-30 13:11 | Hospitalist Progress Note ---
Date of Service January 30, 2020 Assessment & Plan (1) Stroke: MRI did show possible peripheral left posterior occipital infarct Presented with recurrent visual symptoms suggestive of amaurosis fugax with prior history of CVA and carotid artery disease status post surgery No other focal localizing signs MRI-question a thin band of linear restricted diffusion involving the peripheral left posterior occipital cortex MRA of the neck showed stenotic lesions involving the origins of the left common carotid and right innominate arteries, suspected high-grade stenosis of proximal right internal carotid artery MRA of the head showed-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 Echo of the heart showed-normal LV size, EF 55 to 60%, RV systolic function is normal, LA is moderately dilated, mild aortic regurgitation and grade 1 diastolic dysfunction Appreciate vascular surgery input with plan for carotid enterectomy for stenosis of the right ICA on the line Appreciate neurology input and recommendation Repeat MRI did show left posterior occipital cortex infarct Plan to continue aspirin and Plavix for 21 days and then Plavix alone to continue Will have outpatient Zio patch and possible ambulatory EEG Will need outpatient ophthalmology appointment for ongoing eye symptoms Right internal carotid stenosis Appreciate vascular surgery input and recommendation for possible endarterectomy down the line (2) Hypotension: -Noted be hypotensive in the ED, lowest BP recorded 67/53 -Repeated taking of blood pressure did not show any better result in the emergency room or on floor -She did not have any acute symptoms with this low blood pressure -Sepsis as a possible cause for hypotension has been ruled out and the antibiotics have been discontinued -She was transferred to ICU with continued hypotension from the floor last night and she received transient infusion of Levophed -Arterial line did show blood pressure to be upper normal (3) Hypertension: She has a history of hypertension but otherwise her blood pressure was noted to be on the lower side as an outpatient She has portal arterial A-line and that documented her blood pressure to be borderline high She has not been taking any medicine for blood pressure Likely to need small dose of antihypertensive to control blood pressure (4) Visual disturbance: She has been complaining of episodic visual loss suggestive of amaurosis fugax since end of October Visual symptoms start with bright light followed by blindness which last for about an hour Had head CT on 01/22 that was unremarkable Likely secondary to recurrent TIAs As above-will need outpatient ophthalmology evaluation (5) Chronic diastolic CHF (congestive heart failure): -Appears euvolemic, may be on the hypovolemic side given hypotension -Holding diuretics for now, monitor volume status closely (6) History of CVA (cerebrovascular accident): -Continue aspirin and statin -She does not have any residual effect from prior CVA except questionable right- sided weakness (7) COPD (chronic obstructive pulmonary disease): -No signs of acute exacerbation (8) DVT prophylaxis: -SQ Heparin Admission and Anticipated Discharge Date Admission Date: January 28, 2020 Subjective 01/29/2020 The patient was seen and examined in ICU She is a 70-year-old female with significant past medical history of COPD, history of CVA with minimal right hemiparesis, history of carotid stenosis status post CEA was admitted with visual symptoms suggestive of amaurosis fugax since end of October. She is generally weak but denies any symptoms this morning Her blood pressure remains stable 01/30/2020 The patient was seen and examined in ICU She remains stable and has had one episode of visual disturbance in the form of bright light but no loss of vision Denies any other significant symptoms Review of Systems Review of Systems: All systems reviewed and are unremarkable except as noted below Constitutional: + weakness and + weight loss Neurologic: + generalized weakness and + problem reported (On and off visual symptoms suggestive of amaurosis fugax); no confusion Physical Exam Physical Exam: Lying in bed comfortably Constitutional: + ill appearing and + thin; no acute distress Eyes: PERRL, conjunctivae normal, anicteric sclerae ENMT: external ear and nose normal, oropharynx normal Neck: trachea midline, no thyromegaly Respiratory: normal respiratory effort; no respiratory distress Auscultation: lungs clear to auscultation bilaterally Cardiovascular: Rate/Rhythm: regular rate and regular rhythm Heart Sounds: + murmur (1/6 ESM over aortic area) Gastrointestinal (Abdomen): Inspection/Auscultation: abdomen normal to inspection; abdomen not distended Percussion/Palpation: abdomen soft; abdomen nontender Neurologic: moves all extremities; no focal motor deficits Speech / Cognition: normal speech Motor/Sensory: no tremor Psychiatric: A+Ox3, euthymic affect Lymphatic: no cervical or axillary lymphadenopathy Results & Data Results & Data ([facility]) Vital Signs (Past 12 Hours) Vital Signs Temp Pulse Resp BP Pulse Ox 01/30/20 12:27 99 H 20 170/100 H 95 01/30/20 12:00 101 H 19 97 01/30/20 11:00 82 20 99 01/30/20 10:00 72 12 95 01/30/20 09:00 103 H 20 100 01/30/20 08:00 36.5 C 104 H 20 97 01/30/20 07:00 83 21 93 01/30/20 06:00 78 21 93 01/30/20 05:00 82 19 95 01/30/20 04:00 36.7 C 82 15 94 01/30/20 03:00 77 14 95 01/30/20 02:00 80 18 95 Laboratory Results Short CBC 01/30/20 Range/Units 04:24 WBC 7.17 (4.8-10.8) K/uL Hgb 12.3 (12.0-16.0) g/dL Hct 36.9 L (37-47) % Plt Count 183 (130-400) K/uL [facility] 01/30/20 04:24 Sodium 137 Potassium 3.4 L Chloride 106 Carbon Dioxide 24 BUN 8 Creatinine 0.91 Glucose 97 Calcium 8.6 Medications Administered Current Inpatient Medications Acetaminophen (Acetaminophen 325 Mg Tab) 650 mg PO Q4H PRN PRN Reason: Pain or Fever Stop: 02/27/20 18:44 Albuterol (Albut/Ipratrop 3mg/0.5mg Neb 3 Ml Vial) 3 ml NEB Q4R PRN PRN Reason: Shortness Of Breath Or Wheezing Stop: 02/28/20 06:59 Aspirin (Aspirin 81 Mg Ectab) 81 mg PO DAILY [facility] Stop: 02/28/20 08:59 Last Admin: 01/30/20 09:12 Dose: 81 mg Documented by: Atorvastatin Calcium (Atorvastatin 40 Mg Tab) 80 mg PO HS [facility] Stop: 02/27/20 20:59 Last Admin: 01/29/20 20:33 Dose: 80 mg Documented by: Docusate Sodium/Ferrous Fumarate (Ferrous Fumarate/Ascorbic Acid 65 Mg Capcr) 65 mg PO DAILY [facility] Stop: 02/28/20 08:59 Last Admin: 01/30/20 09:12 Dose: 65 mg Documented by: Famotidine (Famotidine 20 Mg Tab) 20 mg PO BID [facility] Stop: 02/27/20 20:59 Last Admin: 01/30/20 09:09 Dose: 20 mg Documented by: Furosemide (Furosemide 20 Mg Tab) 10 mg PO QAM [facility] Stop: 02/28/20 08:59 Last Admin: 01/30/20 09:12 Dose: 10 mg Documented by: Heparin Sodium (Porcine) (Heparin Sod 5,000 Unit/0.5 Ml Vial) 5,000 units SQ Q12 [facility] Stop: 02/27/20 20:59 Last Admin: 01/30/20 09:12 Dose: 5,000 units Documented by: Magnesium Sulfate/Dextrose (Magnesium Sulfate / D5w) 1 gm in 100 mls @ 50 mls/hr IV Q2H [facility] Stop: 01/30/20 15:59 Last Admin: 01/30/20 10:57 Dose: 50 mls/hr Documented by: Potassium Phosphate 21 mmol/ (Sodium Chloride) 507 mls @ 88 mls/hr IV ONE ONE Stop: 01/30/20 13:45 Last Admin: 01/30/20 09:04 Dose: 88 mls/hr Documented by: [facility]ivitamins ([facility]ivitamin Tab) [facility] Stop: 02/28/20 08:59 Last Admin: 01/30/20 09:09 Dose: 1 tab Documented by: Timolol Maleate (Timolol Maleate 0.25% Op Soln 5 Ml Btl) [address] [facility] Stop: 02/28/20 08:59 Last Admin: 01/30/20 09:09 Dose: 1 drops Documented by: Vitamin D (Cholecalciferol 1,000 Units 25 Mcg Tab) 2,000 units PO DAILY [facility] Stop: 02/28/20 08:59 Last Admin: 01/30/20 09:10 Dose: 2,000 units Documented by:
[2020-01-30] MEDS: NOREPINEPHRINE BIT INJ 8 MG in DEXTROSE 5% 500 ML IV SCH (13:15)
[2020-01-30] MEDS: cefTRIAXone SODIUM 1,000 MG in DEXTROSE 5% 50 ML IV SCH (13:57)
[2020-01-30] MEDS ORDERED: OPTIRAY 320 125ml IV ONE (15:07)
--- NOTE | 2020-01-30 15:11 | Communication Note ---
Date of Service: January 30, 2020 Still awaiting results of CTA chest/neck. Will make further recommendations after imaging completed.
--- NOTE | 2020-01-30 15:34 | CT Scan Report ---
CT angio chest w con CT DOSE: CLINICAL HISTORY: bilateral upper extremity arterial stenosis TECHNIQUE: CT angiographic images were acquired in a dynamic helical fashion during intravenous admin istration of 120 cc of Optiray 320. MIP images were acquired. A dose lowering technique was utilized adhering to the principles of ALARA. COMPARISON STUDY: Noncontrast CT scan dated 12/04/2018 FINDINGS: There is an 8 mm right lobe thyroid nodule. There is mild ectasia of ascending thoracic aorta measures 37 mm at the level the pulmonary artery. There is elevation right hemidiaphragm. There are mild coronary artery calcifications present. There are no pathologically enlarged axillary, mediastinal, or hilar lymph nodes. There are no pleural effusions. There is pulmonary emphysema. There is mild subpleural reticulation. There are no areas of parenchyma l consolidation to indicate a pneumonia. There are no pulmonary artery filling defects to indicate acute pulmonary embolism. There is subtotal occlusion of the right renal artery. There is right renal atrophy. There is an old superior thoracic vertebral body compression deformity There is a subtotal occlusion involving the origin of the left common carotid artery. There is a subtotal occlusion involving the origin of the right innominate artery. There is a greater than 90% stenosis of the left subclavian artery. IMPRESSION: 1. Subtotal occlusion involving the origin of the left common carotid artery 2. Subtotal occlusion involving the proximal right innominate artery 3. Greater than 90% stenosis of the left subclavian artery. 4. 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 Pulmonary emphysema with subpleural reticulation. ACT 112: Negative or not required by law. Electronically signed by: Jessee Harris M.D. 01/30/2020 3:33 PM
[2020-01-30] MEDS: CLOPIDOGREL BISULFATE 75 MG TAB PO SCH (15:35)
--- NOTE | 2020-01-30 15:38 | CT Scan Report ---
NECK CTA HISTORY: Right carotid artery stenosis. Abnormal MRA. TECHNIQUE: Multiaxial CT images of the neck were performed following the intravenous administration o f contrast to evaluate the major cervical vessels. Maximum intensity projection images were also obta ined. All measurements were calculated based on NASCET criteria. A dose lowering technique was utili zed adhering to the principles of ALARA. COMPARISON STUDY: Neck MRA 01/28/2020. FINDINGS: Moderate calcified plaque within the aortic arch. There appears to be focal occlusion withi n the proximal brachiocephalic artery. However, there is reconstitution of flow within the proximal r ight common carotid artery which could be due to retrograde opacification from the right subclavian a rtery or a trickle of flow from the brachiocephalic artery. There is multifocal moderate to severe st enosis within the proximal right subclavian artery. High-grade stenosis at the takeoff of the left co mmon carotid artery. Densely calcified proximal left subclavian artery which could also be included. However, there is reconstitution of flow within the mid to distal left subclavian artery. The bilater al mid to distal common carotid arteries are widely patent. The left internal carotid artery is also widely patent. There is a 3 mm aneurysm within the ophthalmic portion of the left internal carotid ar francisco j. Mild to moderate multi focal narrowing within the supraclinoid segment of the right internal ca rotid artery. There is diminished flow of the right internal carotid artery comparison to the left. T his likely secondary to the high-grade stenosis at the proximal right internal carotid artery best se en on image 98. This demonstrates 95% stenosis. This is secondary to severe calcified plaque at the r ight carotid bifurcation. There is 60-70% stenosis at the right carotid bulb. Moderate focal stenosis at the origins of the bilateral vertebral arteries. The remaining bilateral vertebral arteries are w idely patent. Moderate mucosal thickening within the left sphenoid sinus. 1 cm right thyroid nodule. Emphysema. IMPRESSION: 1. Approximately 95% focal stenosis within the proximal right internal carotid artery. 2. A 3 mm aneurysm at the abdominal portion of the left internal carotid artery. 3. Moderate focal stenosis at the origin of the bilateral vertebral arteries. The remaining bilateral vertebral arteries are widely patent. 4. High-grade stenosis versus occlusion within the proximal brachiocephalic artery and proximal left subclavian artery as described above. There is also high-grade stenosis at the takeoff of the left co mmon carotid artery. ACT 112: Negative or not required by law. Electronically signed by: Jose Alberto Connell M.D. 01/30/2020 3:37 PM
[2020-01-30] MEDS: amLODIPine BESYLATE 5 MG TAB PO SCH (18:14)
[2020-01-30] MEDS: ATORVASTATIN 40 MG TAB PO SCH (20:17)
[2020-01-31 06:58] LABS: Basophils # (auto) 0.02 K/uL (0-0.2); Basophils % (auto) 0.3 %; Eosinophils # (auto) 0.28 K/uL (0-0.5); Hematocrit (blood only) 36.4 % (37-47); Hemoglobin 12.1 g/dL (12.0-16.0); Immature Granulocytes # (auto) 0.01 K/uL (0.00-0.02); Immature Granulocytes % (auto) 0.1 %; Lymphocytes # (auto) 1.77 K/uL (1.2-3.4); Lymphocytes % (auto) 25.1 %; Mean Corpuscular Hemoglobin 34.6 pg (25-34); Mean Corpuscular Hgb Conc 33.2 g/dL (32-36); Mean Platelet Volume 9.7 fL (7.4-10.4); Monocytes # (auto) 0.78 K/uL (0.11-0.59); Monocytes % (auto) 11.1 %; Neutrophils # (auto) 4.18 K/uL (1.4-6.5); Neutrophils % (auto) 59.4 %; Platelet Count 182 K/uL (130-400); RDW Coefficient of Variation 13.1 % (11.5-14.5); RDW Standard Deviation 49.3 fL (36.4-46.3); White Blood Count 7.04 K/uL (4.8-10.8)
[2020-01-31 07:35] LABS: BUN Creatinine Ratio 8.3 (10-20); Calcium 8.8 mg/dl (8.5-10.1); Est GFR (African American) 64.1; Est GFR (Non-African American) 55.3
[2020-01-31] MEDS: FAMOTIDINE 20 MG TAB PO SCH ×2 (08:39→20:38)
[2020-01-31] MEDS: ASPIRIN 81 MG ECTAB PO SCH (08:39)
[2020-01-31] MEDS: FUROSEMIDE 20 MG TAB PO SCH (08:40)
[2020-01-31] MEDS: CLOPIDOGREL BISULFATE 75 MG TAB PO SCH (08:41)
[2020-01-31] MEDS: amLODIPine BESYLATE 5 MG TAB PO SCH (08:41)
[2020-01-31] MEDS: MULTIVITAMIN TAB PO SCH (08:42)
[2020-01-31] MEDS: FERROUS FUMARATE/ASCORBIC ACID 65 MG CAPCR PO SCH (08:42)
[2020-01-31] MEDS: HEPARIN SOD 5,000 UNIT/0.5 ML VIAL SQ SCH ×2 (08:43→20:38)
[2020-01-31] MEDS: CHOLECALCIFEROL 1,000 UNITS 25 MCG TAB PO SCH (08:44)
[2020-01-31] MEDS: TIMOLOL MALEATE 0.25% OP SOLN 5 ML BTL OPL SCH (08:44)
--- NOTE | 2020-01-31 09:25 | Surgery Progress Note ---
Date of Service January 31, 2020 Assessment & Plan (1) Cerebrovascular insufficiency syndrome: CTA was reviewed. She has multiple lesions. Her innominate artery and left carotid artery origins have pre occlusive lesions present. The left subclavian artery has a severe stenosis at its origin. Both vertebrals have moderate stenosis at their origins but both originate beyond the preocclusive lesions in the innominate and left subclavian arteries. Cerebral perfusion is markedly impaired. This patient needs to have higher than normal blood pressures to maintain cerebral perfusion and avoid becoming symptomatic. The surgical options wound be to do a bypass to the arch vessels from the ascending aorta which would have a high morbidity and mortality in this patient. A less invasive option would be [employer]/stenting of the left subclavian artery followed by a left subclavian to carotid bypass and a carotid carotid bypass. Would like input from her sort supervisor on suggestions. I would favor the less invasive procedure on this patient. Admission and Anticipated Discharge Date Admission Date: January 28, 2020 Subjective Patient without symptoms at this time Physical Exam Cardiovascular: No changes in pulse exam Results & Data ([facility]) Vital Signs (Past 12 Hours) Vital Signs Temp Pulse Resp BP Pulse Ox 01/31/20 08:09 36.6 C 95 H 18 169/85 H 96 01/31/20 05:03 36.5 C 91 H 18 157/82 H 94 01/31/20 00:10 36.5 C 101 H 16 164/75 H 97
--- NOTE | 2020-01-31 10:23 | Cardiology Consultation ---
Date of Consultation January 31, 2020 Assessment & Plan (1) Stenosis of right internal carotid artery: (2) Stenosis of artery of upper extremity: (3) Cerebrovascular insufficiency syndrome: (4) Stroke: (5) Visual disturbance: (6) Chronic diastolic CHF (congestive heart failure): (7) COPD (chronic obstructive pulmonary disease): (8) History of CVA (cerebrovascular accident): (9) Carotid stenosis: This is a complex patient with severe vascular disease who fell over her cat's water bowl striking her head in October. She has had visual disturbances and episodic confusion following that event. She was admitted to the hospital and found to have significant vascular disease of her upper extremities. She had a previous left carotid endarterectomy which is patent however, the right carotid now has occlusive disease. Her preoperative risk assessment for any vascular surgery using geriatric sensitive risk calculator is 12.4%. She is currently optimally medically managed. She is considering her options. History of Present Illness Attending Physician: Tacos Connolly MD History of Present Illness This is a 70-year-old female admitted through the emergency department with complaints of visual changes and episodic confusion which started in October following a fall. In the emergency department she was hypotensive and got admitted to the ICU but actually she is a vasculopath with bilateral upper extremity claudication resulting in low blood pressure when evaluated from each arm. She has had a previous left carotid endarterectomy but is not found to have a right carotid stenoses. She has a complex past vascular history including an innominate artery stenosis, atheroma the aortic arch and prior CVA. She stopped smoking approximately 24 years ago. No history of significant ischemic heart disease in her echocardiogram this admission revealed normal right and left ventricular systolic function and no significant valvular pathology. She does have COPD with a gold score of group A. She has no current cardiac symptoms. 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 (HCC) Kidney disease, chronic, stage III (GFR 30-59 ml/min) Atrial ectopic tachycardia (HCC) Chronic diastolic HF (heart failure) ([facility]) COPD, group A, by GOLD 2017 classification ([facility]) Generalized osteoarthritis H/O: CVA (cerebrovascular accident) Hyperlipidemia with target LDL less than 70 GERD (gastroesophageal reflux disease) Renal atrophy, right Paraproteinemia Proteinuria Diastolic dysfunction History of hip fracture Age related osteoporosis Chronic hypoxemic respiratory failure (HCC) Protein-calorie malnutrition (HCC) Hypotension Bilateral carotid artery stenosis Allergies Allergy/AdvReac Type Severity Reaction Status Date / Time hydrocodone Allergy Intermediate CONFUSION Verified 01/23/20 12:40 ramipril Allergy Intermediate Nausea Verified 01/23/20 12:40 Sulfa (Sulfonamide Allergy Intermediate Nausea Verified 01/23/20 12:40 Antibiotics) Home Medications Home Medications Medication Instructions Recorded Confirmed Type atorvastatin 80 mg PO HS 02/22/18 01/28/20 History multivitamin 1 tab PO QAM 02/22/18 01/28/20 History omega 2-tvn-mcg-fish oil [Fish Oil] 1,000 mg PO QAM 02/22/18 01/28/20 History timolol maleate 1 drp OPL QAM 08/21/18 01/28/20 History acetaminophen [Tylenol Extra 500 mg PO QID PRN 10/10/18 01/28/20 History Strength] furosemide [Lasix] 10 mg PO DAILY 11/14/18 01/28/20 History levalbuterol tartrate 45 2 puffs INHALATION Q6H PRN #15 gm 09/23/19 01/28/20 Rx mcg/actuation aerosol inhaler famotidine 20 mg PO BID 01/23/20 01/28/20 History aspirin [Aspir-81] 81 mg PO DAILY 01/28/20 01/28/20 History cholecalciferol (vitamin D3) 50 mcg PO DAILY 01/28/20 01/28/20 History iron,carbonyl-vitamin C [Vitron-C] 1 tab PO DAILY 01/28/20 01/28/20 History spironolactone 12.5 mg PO DAILY 01/28/20 01/28/20 History Patient History Medical History Anemia HX OF ANEMIA Atrial ectopic tachycardia [place] FOLLOWS WITH DR CONDON - LAST SEEN WEEK OF 09/30 Carotid stenosis S/P LEFT CEA (2012)- FOLLOWS WITH S IN [place] Chronic diastolic CHF (congestive heart failure) COPD (chronic obstructive pulmonary disease) GERD (gastroesophageal reflux disease) H/O gastric ulcer History of CVA (cerebrovascular accident) Hyperlipidemia Hypertension PVD (peripheral vascular disease) Surgical History H/O exploratory laparotomy 08/25/2018. Done 2/2 perforated gastric ulcer. Flynn 3, Grade 1 view. 7.5 ETT placed. no issues. History of carotid endarterectomy LEFT CEA (2012) History of cataract extraction RIGHT AND LEFT History of hand surgery History of left hip replacement History of tonsillectomy Family History Other Kidney disease Social History Smoking Status: Former smoker Tobacco Type: Cigarettes Smoking End Date: 1997; Second Hand Exposure: No; Do You Dip or Chew Tobacco: No; Tobacco Cessation Education Requested by Patient: No Hx Alcohol Use: Yes Alcohol type: wine Hx Substance Use: No Preferred Language: Bhutanese Communication Ability: Effective Visual Impairment: No Limitations Rodbuster Required: No Beliefs That Will Affect Care: None marital status: Current Living Situation: Spouse Other Information That Helps Us Care for You: No Feels Safe at Home: Yes Safety Concerns: Feels Safe At This Time Assistive Devices: None Review of Systems Review of Systems: All systems reviewed & are unremarkable except as noted in HPI & below Nothing additional to add except the patient is alert and oriented Physical Exam Physical Exam: General: no acute distress and stated age Head: normocephalic, no masses, lesions, tenderness or abnormalities Eyes: conjunctiva are pink and non-injected, sclera clear Neck: supple, no adenopathy, no bruits, normal jugular venous pulse, no hepatojugular reflux Chest: normal shape and normal respiratory effort Lungs: clear to auscultation and percussion Cardiac Exam: - regular rate & rhythm, no murmurs gallops or rubs - normal S1, normal S2 Pulses: 2(+) throughout Abdomen: abdomen soft, non-tender, no abnormal masses and no hepatosplenomegaly Musculoskeletal: no gait disturbance, no joint inflammation, no deforming arthritis Extremities: no edema and no cyanosis Neuro: grossly normal exam Results & Data ([facility]) Vital Signs (Past 12 Hours) Vital Signs Temp Pulse Pulse Resp BP Pulse Ox 01/31/20 08:09 36.6 C 95 H 18 169/85 H 96 01/31/20 08:00 94 H 01/31/20 05:03 36.5 C 91 H 18 157/82 H 94 01/31/20 00:10 36.5 C 101 H 16 164/75 H 97 Laboratory Results Laboratory Results - last 24 hr 01/29/20 01/31/20 01/31/20 00:34 06:41 06:41 WBC 7.04 RBC 3.50 L Hgb 12.1 Hct 36.4 L MCV 104.0 H MCH 34.6 H MCHC 33.2 RDW Std Deviation 49.3 H RDW Coeff of Lyssa 13.1 Plt Count 182 MPV 9.7 Immature Gran % (Auto) 0.1 Neut % (Auto) 59.4 Lymph % (Auto) 25.1 [place] % (Auto) 11.1 Eos % (Auto) 4.0 Baso % (Auto) 0.3 Neut # (Auto) 4.18 Lymph # (Auto) 1.77 [place] # (Auto) 0.78 H Eos # (Auto) 0.28 Baso # (Auto) 0.02 Immature Gran # (Auto) 0.01 Sodium 137 Potassium 4.0 D Chloride 105 Carbon Dioxide 25 Anion Gap 7.0 BUN 8 Creatinine 1.02 Est Cr Clr Drug Dosing 40.0 Est GFR ( Amer) 64.1 Est GFR (Non-Af Amer) 55.3 BUN/Creatinine Ratio 8.3 L Glucose 97 Calcium 8.8 Bld Cult Staph aureus PCR Negative Blood Culture MRSA PCR Negative Medications Administered Current Inpatient Medications Acetaminophen (Acetaminophen 325 Mg Tab) 650 mg PO Q4H PRN PRN Reason: Pain or Fever Stop: 02/27/20 18:44 Albuterol (Albut/Ipratrop 3mg/0.5mg Neb 3 Ml Vial) 3 ml NEB Q4R PRN PRN Reason: Shortness Of Breath Or Wheezing Stop: 02/28/20 06:59 Amlodipine Besylate (Amlodipine Besylate 5 Mg Tab) [facility] [place] Stop: 02/29/20 16:59 Last Admin: 01/31/20 08:41 Dose: 2.5 mg Documented by: Aspirin (Aspirin 81 Mg Ectab) 81 mg PO DAILY [facility] Stop: 02/28/20 08:59 Last Admin: 01/31/20 08:39 Dose: 81 mg Documented by: Atorvastatin Calcium (Atorvastatin 40 Mg Tab) 80 mg PO HS [facility] Stop: 02/27/20 20:59 Last Admin: 01/30/20 20:17 Dose: 80 mg Documented by: Clopidogrel Bisulfate (Clopidogrel Bisulfate 75 Mg Tab) [facility] [place] Stop: 02/29/20 14:14 Last Admin: 01/31/20 08:41 Dose: 75 mg Documented by: Docusate Sodium/Ferrous Fumarate (Ferrous Fumarate/Ascorbic Acid 65 Mg Capcr) 65 mg PO DAILY [facility] Stop: 02/28/20 08:59 Last Admin: 01/31/20 08:42 Dose: 65 mg Documented by: Famotidine (Famotidine 20 Mg Tab) 20 mg PO BID [facility] Stop: 02/27/20 20:59 Last Admin: 01/31/20 08:39 Dose: 20 mg Documented by: Furosemide (Furosemide 20 Mg Tab) 10 mg PO QAM [facility] Stop: 02/28/20 08:59 Last Admin: 01/31/20 08:40 Dose: 10 mg Documented by: Heparin Sodium (Porcine) (Heparin Sod 5,000 Unit/0.5 Ml Vial) 5,000 units SQ Q12 [facility] Stop: 02/27/20 20:59 Last Admin: 01/31/20 08:43 Dose: 5,000 units Documented by: Ceftriaxone Sodium 1,000 mg/ (Dextrose) 50 mls @ 100 mls/hr IV Q24H [facility]; Protocol Stop: 02/13/20 13:59 Last Infusion: 01/30/20 14:30 Dose: Infused Documented by: Multivitamins (Multivitamin Tab) 1 tab PO [facility] Stop: 02/28/20 08:59 Last Admin: 01/31/20 08:42 Dose: 1 tab Documented by: Timolol Maleate (Timolol Maleate 0.25% Op Soln 5 Ml Btl) 1 drops OPL [facility] Stop: 02/28/20 08:59 Last Admin: 01/31/20 08:44 Dose: 1 drops Documented by: Vitamin D (Cholecalciferol 1,000 Units 25 Mcg Tab) 2,000 units PO DAILY [facility] Stop: 02/28/20 08:59 Last Admin: 01/31/20 08:44 Dose: 2,000 units Documented by:
[2020-01-31] MEDS ORDERED: levETIRAcetam 500 MG TAB PO STA (11:19)
[2020-01-31] MEDS: PSYLLIUM 58.6% POWDER PACKET PO SCH (13:00)
[2020-01-31] MEDS: cefTRIAXone SODIUM 1,000 MG in DEXTROSE 5% 50 ML IV SCH (14:33)
--- NOTE | 2020-01-31 14:41 | Hospitalist Progress Note ---
Date of Service January 31, 2020 Assessment & Plan (1) Stroke: MRI did show possible peripheral left posterior occipital infarct Presented with recurrent visual symptoms suggestive of amaurosis fugax with prior history of CVA and carotid artery disease status post surgery No other focal localizing signs MRI-question a thin band of linear restricted diffusion involving the peripheral left posterior occipital cortex MRA of the neck showed stenotic lesions involving the origins of the left common carotid and right innominate arteries, suspected high-grade stenosis of proximal right internal carotid artery MRA of the head showed-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 Echo of the heart showed-normal LV size, EF 55 to 60%, RV systolic function is normal, LA is moderately dilated, mild aortic regurgitation and grade 1 diastolic dysfunction Appreciate vascular surgery input with plan for carotid enterectomy for stenosis of the right ICA on the line Appreciate neurology input and recommendation Repeat MRI did show left posterior occipital cortex infarct Plan to continue aspirin and Plavix for 21 days and then Plavix alone to continue Will have outpatient Zio patch and possible ambulatory EEG Will need outpatient ophthalmology appointment for ongoing eye symptoms Has severe stenotic disease involving the arterial systems in multiple areas Right internal carotid stenosis seems to be worse Appreciate vascular surgery input and recommendation for possible endarterectomy down the line Appreciate cardiology input and recommendation for surgical risk stratification Possible seizure disorder Given the symptomatology Initial EEG has been negative for any seizure Will put her on Keppra 520 mg twice daily as per recommendation from neurologist (2) Hypotension: -Noted be hypotensive in the ED, lowest BP recorded 67/53 -Repeated taking of blood pressure did not show any better result in the emergency room or on floor -She did not have any acute symptoms with this low blood pressure -Sepsis as a possible cause for hypotension has been ruled out and the antibiotics have been discontinued -She was transferred to ICU with continued hypotension from the floor last night and she received transient infusion of Levophed -Arterial line did show blood pressure to be upper normal -Her low blood pressure in the upper extremities is seems to be due to widespread arterial stenotic disease. (3) Hypertension: She has a history of hypertension but otherwise her blood pressure was noted to be on the lower side as an outpatient She has portal arterial A-line and that documented her blood pressure to be borderline high She has not been taking any medicine for blood pressure Likely to need small dose of antihypertensive to control blood pressure Blood pressure is taken over thighs-could be higher than in the arms For now we will continue amlodipine 2.5 mg daily (4) Visual disturbance: She has been complaining of episodic visual loss suggestive of amaurosis fugax since end october Visual symptoms start with bright light followed by blindness which last for about an hour Had head CT on 01/22 that was unremarkable Likely secondary to recurrent TIAs As above-will need outpatient ophthalmology evaluation (5) Chronic diastolic CHF (congestive heart failure): -Appears euvolemic, may be on the hypovolemic side given hypotension -Holding diuretics for now, monitor volume status closely (6) History of CVA (cerebrovascular accident): -Continue aspirin and statin -She does not have any residual effect from prior CVA except questionable right- sided weakness (7) COPD (chronic obstructive pulmonary disease): -No signs of acute exacerbation (8) DVT prophylaxis: -SQ Heparin Admission and Anticipated Discharge Date Admission Date: January 28, 2020 Subjective 01/29/2020 The patient was seen and examined in ICU She is a 70-year-old female with significant past medical history of COPD, history of CVA with minimal right hemiparesis, history of carotid stenosis status post CEA was admitted with visual symptoms suggestive of amaurosis fugax since end october. She is generally weak but denies any symptoms this morning Her blood pressure remains stable 01/30/2020 The patient was seen and examined in ICU She remains stable and has had one episode of visual disturbance in the form of bright light but no loss of vision Denies any other significant symptoms 01/31/2020 Patient was seen and examined in telemetry unit She remains anxious and generally weak he still has visual symptoms Denies any other significant symptoms Review of Systems Review of Systems: All systems reviewed and are unremarkable except as noted below Constitutional: + weakness and + weight loss Neurologic: + generalized weakness and + problem reported (On and off visual symptoms suggestive of amaurosis fugax); no confusion Physical Exam Physical Exam: Lying in bed comfortably Constitutional: + ill appearing and + thin; no acute distress Eyes: PERRL, conjunctivae normal, anicteric sclerae ENMT: external ear and nose normal, oropharynx normal Neck: trachea midline, no thyromegaly Respiratory: normal respiratory effort; no respiratory distress Auscultation: lungs clear to auscultation bilaterally Cardiovascular: Rate/Rhythm: regular rate and regular rhythm Heart Sounds: + murmur (1/6 ESM over aortic area) Gastrointestinal (Abdomen): Inspection/Auscultation: abdomen normal to inspection; abdomen not distended Percussion/Palpation: abdomen soft; abdomen nontender Musculoskeletal: No acute arthritis involving any joint Neurologic: moves all extremities; no focal motor deficits Speech / Cognition: normal speech Motor/Sensory: no tremor Has been having ongoing visual symptoms in the form of very bright lights but no blindness Psychiatric: A+Ox3, euthymic affect Lymphatic: no cervical or axillary lymphadenopathy Results & Data Results & Data ([facility]) Vital Signs (Past 12 Hours) Vital Signs Temp Pulse Pulse Resp BP Pulse Ox 01/31/20 12:16 36.6 C 88 18 170/98 H 94 01/31/20 08:09 36.6 C 95 H 18 169/85 H 96 01/31/20 08:00 94 H 01/31/20 05:03 36.5 C 91 H 18 157/82 H 94 Laboratory Results Short CBC 01/31/20 Range/Units 06:41 WBC 7.04 (4.8-10.8) K/uL Hgb 12.1 (12.0-16.0) g/dL Hct 36.4 L (37-47) % Plt Count 182 (130-400) K/uL BMP 01/31/20 06:41 Sodium 137 Potassium 4.0 D Chloride 105 Carbon Dioxide 25 BUN 8 Creatinine 1.02 Glucose 97 Calcium 8.8 Medications Administered Current Inpatient Medications Acetaminophen (Acetaminophen 325 Mg Tab) 650 mg PO Q4H PRN PRN Reason: Pain or Fever Stop: 02/27/20 18:44 Albuterol (Albut/Ipratrop 3mg/0.5mg Neb 3 Ml Vial) 3 ml NEB Q4R PRN PRN Reason: Shortness Of Breath Or Wheezing Stop: 02/28/20 06:59 Amlodipine Besylate (Amlodipine Besylate 5 Mg Tab) 2.5 mg PO QAM [facility] Stop: 02/29/20 16:59 Last Admin: 01/31/20 08:41 Dose: 2.5 mg Documented by: Aspirin (Aspirin 81 Mg Ectab) 81 mg PO DAILY [facility] Stop: 02/28/20 08:59 Last Admin: 01/31/20 08:39 Dose: 81 mg Documented by: Atorvastatin Calcium (Atorvastatin 40 Mg Tab) 80 mg PO HS [facility] Stop: 02/27/20 20:59 Last Admin: 01/30/20 20:17 Dose: 80 mg Documented by: Clopidogrel Bisulfate (Clopidogrel Bisulfate 75 Mg Tab) 75 mg PO QAM [facility] Stop: 02/29/20 14:14 Last Admin: 01/31/20 08:41 Dose: 75 mg Documented by: Docusate Sodium/Ferrous Fumarate (Ferrous Fumarate/Ascorbic Acid 65 Mg Capcr) 65 mg PO DAILY [facility] Stop: 02/28/20 08:59 Last Admin: 01/31/20 08:42 Dose: 65 mg Documented by: Famotidine (Famotidine 20 Mg Tab) 20 mg PO BID [facility] Stop: 02/27/20 20:59 Last Admin: 01/31/20 08:39 Dose: 20 mg Documented by: Furosemide (Furosemide 20 Mg Tab) 10 mg PO QAM [facility] Stop: 02/28/20 08:59 Last Admin: 01/31/20 08:40 Dose: 10 mg Documented by: Heparin Sodium (Porcine) (Heparin Sod 5,000 Unit/0.5 Ml Vial) 5,000 units SQ Q12 [facility] Stop: 02/27/20 20:59 Last Admin: 01/31/20 08:43 Dose: 5,000 units Documented by: Ceftriaxone Sodium 1,000 mg/ (Dextrose) 50 mls @ 100 mls/hr IV Q24H [facility]; Protocol Stop: 02/13/20 13:59 Last Admin: 01/31/20 14:33 Dose: 100 mls/hr Documented by: Levetiracetam (Levetiracetam 500 Mg Tab) 500 mg PO Q12H [facility] Stop: 03/01/20 20:59 Multivitamins (Multivitamin Tab) 1 tab PO [facility] Stop: 02/28/20 08:59 Last Admin: 01/31/20 08:42 Dose: 1 tab Documented by: Psyllium Hydrophilic Mucilloid (Psyllium 58.6% Powder Packet) 1 pkt PO QAM [facility] Stop: 03/01/20 12:59 Last Admin: 01/31/20 13:00 Dose: 1 pkt Documented by: Timolol Maleate (Timolol Maleate 0.25% Op Soln 5 Ml Btl) 1 drops OPL QAM [facility] Stop: 02/28/20 08:59 Last Admin: 01/31/20 08:44 Dose: 1 drops Documented by: Vitamin D (Cholecalciferol 1,000 Units 25 Mcg Tab) 2,000 units PO DAILY [facility] Stop: 02/28/20 08:59 Last Admin: 01/31/20 08:44 Dose: 2,000 units Documented by:
[2020-01-31] MEDS: ATORVASTATIN 40 MG TAB PO SCH (20:38)
[2020-01-31] MEDS: levETIRAcetam 500 MG TAB PO SCH (20:38)
[2020-02-01] MEDS: FERROUS FUMARATE/ASCORBIC ACID 65 MG CAPCR PO SCH (08:34)
[2020-02-01] MEDS: ASPIRIN 81 MG ECTAB PO SCH (08:35)
[2020-02-01] MEDS: FUROSEMIDE 20 MG TAB PO SCH (08:35)
[2020-02-01] MEDS: CHOLECALCIFEROL 1,000 UNITS 25 MCG TAB PO SCH (08:35)
[2020-02-01] MEDS: levETIRAcetam 500 MG TAB PO SCH ×2 (08:35→20:00)
[2020-02-01] MEDS: FAMOTIDINE 20 MG TAB PO SCH ×2 (08:35→20:00)
[2020-02-01] MEDS: HEPARIN SOD 5,000 UNIT/0.5 ML VIAL SQ SCH ×2 (08:35→20:00)
[2020-02-01] MEDS: amLODIPine BESYLATE 5 MG TAB PO SCH (08:35)
[2020-02-01] MEDS: PSYLLIUM 58.6% POWDER PACKET PO SCH (08:36)
[2020-02-01] MEDS: MULTIVITAMIN TAB PO SCH (08:36)
[2020-02-01] MEDS: CLOPIDOGREL BISULFATE 75 MG TAB PO SCH (08:36)
[2020-02-01] MEDS: TIMOLOL MALEATE 0.25% OP SOLN 5 ML BTL OPL SCH (08:40)
--- NOTE | 2020-02-01 12:04 | Cardiology Progress Note ---
Date of Service February 01, 2020 Assessment & Plan (1) Stenosis of right internal carotid artery: (2) Stenosis of artery of upper extremity: (3) Cerebrovascular insufficiency syndrome: (4) Stroke: (5) Visual disturbance: (6) Chronic diastolic CHF (congestive heart failure): (7) COPD (chronic obstructive pulmonary disease): (8) History of CVA (cerebrovascular accident): (9) Carotid stenosis: The patient has no her and her would like to speak with the vascular surgeon and I believe that there is plans for discussion later. Otherwise, from a cardiac standpoint she is stable. Admission and Anticipated Discharge Date Admission Date: January 28, 2020 Subjective The patient is alert and oriented. Sitting with her in her room and having lunch. Review of Systems Review of Systems: All systems reviewed & are unremarkable except as noted in HPI & below Nothing additional to add. Physical Exam Physical Exam: General: no acute distress and stated age Head: normocephalic, no masses, lesions, tenderness or abnormalities Eyes: conjunctiva are pink and non-injected, sclera clear Neck: supple, no adenopathy, no bruits, normal jugular venous pulse, no hepatojugular reflux Chest: normal shape and normal respiratory effort Lungs: clear to auscultation and percussion Cardiac Exam: - regular rate & rhythm, no murmurs gallops or rubs - normal S1, n ormal S2 Pulses: 2(+) throughout Abdomen: abdomen soft, non-tender, no abnormal masses and no hepatosplenomegaly Musculoskeletal: no gait disturbance, no joint inflammation, no deforming arthritis Extremities: no edema and no cyanosis Neuro: grossly normal exam Results & Data ([facility]) Vital Signs (Past 12 Hours) Vital Signs Temp Pulse Resp BP Pulse Ox 02/01/20 08:10 36.6 C 94 H 18 155/88 H 95 02/01/20 04:42 36.5 C 93 H 18 140/89 93 Medications Administered Current Inpatient Medications Acetaminophen (Acetaminophen 325 Mg Tab) 650 mg PO Q4H PRN PRN Reason: Pain or Fever Stop: 02/27/20 18:44 Albuterol (Albut/Ipratrop 3mg/0.5mg Neb 3 Ml Vial) 3 ml NEB Q4R PRN PRN Reason: Shortness Of Breath Or Wheezing Stop: 02/28/20 06:59 Amlodipine Besylate (Amlodipine Besylate 5 Mg Tab) 2.5 mg PO QAM [facility] Stop: 02/29/20 16:59 Last Admin: 02/01/20 08:35 Dose: 2.5 mg Documented by: Aspirin (Aspirin 81 Mg Ectab) 81 mg PO DAILY [facility] Stop: 02/28/20 08:59 Last Admin: 02/01/20 08:35 Dose: 81 mg Documented by: Atorvastatin Calcium (Atorvastatin 40 Mg Tab) 80 mg PO HS [facility] Stop: 02/27/20 20:59 Last Admin: 01/31/20 20:38 Dose: 80 mg Documented by: Clopidogrel Bisulfate (Clopidogrel Bisulfate 75 Mg Tab) 75 mg PO QAM [facility] Stop: 02/29/20 14:14 Last Admin: 02/01/20 08:36 Dose: 75 mg Documented by: Docusate Sodium/Ferrous Fumarate (Ferrous Fumarate/Ascorbic Acid 65 Mg Capcr) 65 mg PO DAILY [facility] Stop: 02/28/20 08:59 Last Admin: 02/01/20 08:34 Dose: 65 mg Documented by: Famotidine (Famotidine 20 Mg Tab) 20 mg PO BID [facility] Stop: 02/27/20 20:59 Last Admin: 02/01/20 08:35 Dose: 20 mg Documented by: Furosemide (Furosemide 20 Mg Tab) 10 mg PO QAM [facility] Stop: 02/28/20 08:59 Last Admin: 02/01/20 08:35 Dose: 10 mg Documented by: Heparin Sodium (Porcine) (Heparin Sod 5,000 Unit/0.5 Ml Vial) 5,000 units SQ Q12 [facility] Stop: 02/27/20 20:59 Last Admin: 02/01/20 08:35 Dose: 5,000 units Documented by: Ceftriaxone Sodium 1,000 mg/ (Dextrose) 50 mls @ 100 mls/hr IV Q24H [facility]; Prot ocol Stop: 02/13/20 13:59 Last Infusion: 01/31/20 15:45 Dose: Infused Documented by: Levetiracetam (Levetiracetam 500 Mg Tab) 500 mg PO Q12H [facility] Stop: 03/01/20 20:59 Last Admin: 02/01/20 08:35 Dose: 500 mg Documented by: Multivitamins (Multivitamin Tab) [facility] [place] Stop: 02/28/20 08:59 Last Admin: 02/01/20 08:36 Dose: 1 tab Documented by: Psyllium Hydrophilic Mucilloid (Psyllium 58.6% Powder Packet) 1 pkt PO QAM [facility] Stop: 03/01/20 12:59 Last Admin: 02/01/20 08:36 Dose: 1 pkt Documented by: Timolol Maleate (Timolol Maleate 0.25% Op Soln 5 Ml Btl) 1 drops OPL QAM [facility] Stop: 02/28/20 08:59 Last Admin: 02/01/20 08:40 Dose: 1 drops Documented by: Vitamin D (Cholecalciferol 1,000 Units 25 Mcg Tab) 2,000 units PO DAILY [facility] Stop: 02/28/20 08:59 Last Admin: 02/01/20 08:35 Dose: 2,000 units Documented by:
[2020-02-01] MEDS: cefTRIAXone SODIUM 1,000 MG in DEXTROSE 5% 50 ML IV SCH (13:26)
--- NOTE | 2020-02-01 13:31 | Hospitalist Progress Note ---
Date of Service February 01, 2020 Assessment & Plan (1) Stroke: MRI did show possible peripheral left posterior occipital infarct Presented with recurrent visual symptoms suggestive of amaurosis fugax with prior history of CVA and carotid artery disease status post surgery No other focal localizing signs MRI-question a thin band of linear restricted diffusion involving the peripheral left posterior occipital cortex MRA of the neck showed stenotic lesions involving the origins of the left common carotid and right innominate arteries, suspected high-grade stenosis of proximal right internal carotid artery MRA of the head showed-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 Echo of the heart showed-normal LV size, EF 55 to 60%, RV systolic function is normal, LA is moderately dilated, mild aortic regurgitation and grade 1 diastolic dysfunction Appreciate vascular surgery input with plan for carotid enterectomy for stenosis of the right ICA on the line Appreciate neurology input and recommendation Repeat MRI did show left posterior occipital cortex infarct Plan to continue aspirin and Plavix for 21 days and then Plavix alone to continue Will have outpatient Zio patch and possible ambulatory EEG Will need outpatient ophthalmology appointment for ongoing eye symptoms Has been started on oral Keppra as per neurologist Remains stable Has severe stenotic disease involving the arterial systems in multiple areas Right internal carotid stenosis seems to be worse Appreciate vascular surgery input and recommendation for possible endarterectomy down the line Appreciate cardiology input and recommendation for surgical risk stratification Management as per vascular surgery Possible seizure disorder Given the symptomatology Initial EEG has been negative for any seizure Will put her on Keppra 500 mg twice daily as per recommendation from neurologist Still having episodes of visual disturbance (2) Hypotension: -Noted be hypotensive in the ED, lowest BP recorded 67/53 -Repeated taking of blood pressure did not show any better result in the emergency room or on floor -She did not have any acute symptoms with this low blood pressure -Sepsis as a possible cause for hypotension has been ruled out and the antibiotics have been discontinued -She was transferred to ICU with continued hypotension from the floor last night and she received transient infusion of Levophed -Arterial line did show blood pressure to be upper normal -Her low blood pressure in the upper extremities is seems to be due to widespread arterial stenotic disease. (3) Hypertension: She has a history of hypertension but otherwise her blood pressure was noted to be on the lower side as an outpatient She has portal arterial A-line and that documented her blood pressure to be b orderline high She has not been taking any medicine for blood pressure Likely to need small dose of antihypertensive to control blood pressure Blood pressure is taken over thighs-could be higher than in the arms For now we will continue amlodipine 2.5 mg daily High blood pressure remains at 161/94 (4) Visual disturbance: She has been complaining of episodic visual loss suggestive of amaurosis fugax since end october Visual symptoms start with bright light followed by blindness which last for about an hour Had head CT on 01/22 that was unremarkable Likely secondary to recurrent TIAs As above-will need outpatient ophthalmology evaluation (5) Chronic diastolic CHF (congestive heart failure): -Appears euvolemic, may be on the hypovolemic side given hypotension -Holding diuretics for now, monitor volume status closely (6) History of CVA (cerebrovascular accident): -Continue aspirin and statin -She does not have any residual effect from prior CVA except questionable right- sided weakness (7) COPD (chronic obstructive pulmonary disease): -No signs of acute exacerbation (8) DVT prophylaxis: -SQ Heparin Admission and Anticipated Discharge Date Admission Date: January 28, 2020 Subjective 01/29/2020 The patient was seen and examined in ICU She is a 70-year-old female with significant past medical history of COPD, history of CVA with minimal right hemiparesis, history of carotid stenosis status post CEA was admitted with visual symptoms suggestive of amaurosis fugax since end october. She is generally weak but denies any symptoms this morning Her blood pressure remains stable 01/30/2020 The patient was seen and examined in ICU She remains stable and has had one episode of visual disturbance in the form of bright light but no loss of vision Denies any other significant symptoms 01/31/2020 Patient was seen and examined in telemetry unit She remains anxious and generally weak he still has visual symptoms Denies any other significant symptoms 02/01/2020 The patient was seen and examined in telemetry unit in presence of the She has had 1 more episode of visual disturbance last night that lasted for 15 minutes Denies any other symptoms Review of Systems Review of Systems: All systems reviewed and are unremarkable except as noted below Constitutional: + weakness and + weight loss Neurologic: + generalized weakness and + problem reported (On and off visual symptoms suggestive of amaurosis fugax); no confusion Physical Exam Physical Exam: Lying in bed comfortably Constitutional: + ill appearing and + thin; no acute distress Eyes: PERRL, conjunctivae normal, anicteric sclerae ENMT: external ear and nose normal, oropharynx normal Neck: trachea midline, no thyromegaly Respiratory: normal respiratory effort; no respiratory distress Auscultation: lungs clear to auscultation bilaterally Cardiovascular: Rate/Rhythm: regular rate and regular rhythm Heart Sounds: + murmur (1/6 ESM over aortic area) Gastrointestinal (Abdomen): Inspection/Auscultation: abdomen normal to inspection; abdomen not distended Percussion/Palpation: abdomen soft; abdomen nontender Musculoskeletal: No acute arthritis involving any joint Neurologic: moves all extremities; no focal motor deficits Speech / Cognition: normal speech Motor/Sensory: no tremor Psychiatric: A+Ox3, euthymic affect Lymphatic: no cervical or axillary lymphadenopathy Results & Data Results & Data ([facility]) Vital Signs (Past 12 Hours) Vital Signs Temp Pulse Resp BP Pulse Ox 02/01/20 12:01 36.6 C 96 H 18 161/94 H 94 02/01/20 08:10 36.6 C 94 H 18 155/88 H 95 02/01/20 04:42 36.5 C 93 H 18 140/89 93 Medications Administered Current Inpatient Medications Acetaminophen (Acetaminophen 325 Mg Tab) 650 mg PO Q4H PRN PRN Reason: Pain or Fever Stop: 02/27/20 18:44 Albuterol (Albut/Ipratrop 3mg/0.5mg Neb 3 Ml Vial) 3 ml NEB Q4R PRN PRN Reason: Shortness Of Breath Or Wheezing Stop: 02/28/20 06:59 Amlodipine Besylate (Amlodipine Besylate 5 Mg Tab) 2.5 mg PO QAM [facility] Stop: 02/29/20 16:59 Last Admin: 02/01/20 08:35 Dose: 2.5 mg Documented by: Aspirin (Aspirin 81 Mg Ectab) 81 mg PO DAILY [facility] Stop: 02/28/20 08:59 Last Admin: 02/01/20 08:35 Dose: 81 mg Documented by: Atorvastatin Calcium (Atorvastatin 40 Mg Tab) 80 mg PO HS [facility] Stop: 02/27/20 20:59 Last Admin: 01/31/20 20:38 Dose: 80 mg Documented by: Clopidogrel Bisulfate (Clopidogrel Bisulfate 75 Mg Tab) [facility] Stop: 02/29/20 14:14 Last Admin: 02/01/20 08:36 Dose: 75 mg Documented by: Docusate Sodium/Ferrous Fumarate (Ferrous Fumarate/Ascorbic Acid 65 Mg Capcr) 65 mg PO DAILY [facility] Stop: 02/28/20 08:59 Last Admin: 02/01/20 08:34 Dose: 65 mg Documented by: Famotidine (Famotidine 20 Mg Tab) 20 mg PO BID [facility] Stop: 02/27/20 20:59 Last Admin: 02/01/20 08:35 Dose: 20 mg Documented by: Furosemide (Furosemide 20 Mg Tab) [facility] Stop: 02/28/20 08:59 Last Admin: 02/01/20 08:35 Dose: 10 mg Documented by: Heparin Sodium (Porcine) (Heparin Sod 5,000 Unit/0.5 Ml Vial) 5,000 units SQ Q12 [facility] Stop: 02/27/20 20:59 Last Admin: 02/01/20 08:35 Dose: 5,000 units Documented by: Ceftriaxone Sodium 1,000 mg/ (Dextrose) 50 mls @ 100 mls/hr IV Q24H [facility]; Protocol Stop: 02/13/20 13:59 Last Admin: 02/01/20 13:26 Dose: 100 mls/hr Documented by: Levetiracetam (Levetiracetam 500 Mg Tab) 500 mg PO Q12H [facility] Stop: 03/01/20 20:59 Last Admin: 02/01/20 08:35 Dose: 500 mg Documented by: Multivitamins (Multivitamin Tab) [address] [facility] Stop: 02/28/20 08:59 Last Admin: 02/01/20 08:36 Dose: 1 tab Documented by: Psyllium Hydrophilic Mucilloid (Psyllium 58.6% Powder Packet) [address] [facility] Stop: 03/01/20 12:59 Last Admin: 02/01/20 08:36 Dose: 1 pkt Documented by: Timolol Maleate (Timolol Maleate 0.25% Op Soln 5 Ml Btl) [address] [facility] Stop: 02/28/20 08:59 Last Admin: 02/01/20 08:40 Dose: 1 drops Documented by: Vitamin D (Cholecalciferol 1,000 Units 25 Mcg Tab) 2,000 units PO DAILY [facility] Stop: 02/28/20 08:59 Last Admin: 02/01/20 08:35 Dose: 2,000 units Documented by:
[2020-02-01] MEDS: ATORVASTATIN 40 MG TAB PO SCH (20:00)
[2020-02-02 06:58] LABS: Basophils # (auto) 0.02 K/uL (0-0.2); Basophils % (auto) 0.3 %; Eosinophils # (auto) 0.26 K/uL (0-0.5); Eosinophils % (auto) 4.3 %; Hematocrit (blood only) 35.7 % (37-47); Hemoglobin 11.8 g/dL (12.0-16.0); Immature Granulocytes # (auto) 0.01 K/uL (0.00-0.02); Immature Granulocytes % (auto) 0.2 %; Lymphocytes # (auto) 1.83 K/uL (1.2-3.4); Lymphocytes % (auto) 30.3 %; Mean Corpuscular Hemoglobin 34.4 pg (25-34); Mean Corpuscular Hgb Conc 33.1 g/dL (32-36); Mean Corpuscular Volume 104.1 fL (80-100); Mean Platelet Volume 9.8 fL (7.4-10.4); Monocytes # (auto) 0.58 K/uL (0.11-0.59); Monocytes % (auto) 9.6 %; Neutrophils # (auto) 3.34 K/uL (1.4-6.5); Neutrophils % (auto) 55.3 %; Platelet Count 193 K/uL (130-400); RDW Coefficient of Variation 12.9 % (11.5-14.5); RDW Standard Deviation 48.7 fL (36.4-46.3); Red Blood Count 3.43 M/uL (4.2-5.4); White Blood Count 6.04 K/uL (4.8-10.8)
[2020-02-02 07:30] LABS: BUN Creatinine Ratio 7.5 (10-20); Calcium 9.2 mg/dl (8.5-10.1); Creatinine Clr Calc Pharmacy 38.1 ml/min; Est GFR (African American) 60.5; Est GFR (Non-African American) 52.2; Potassium 3.6 mmol/L (3.5-5.1)
[2020-02-02] MEDS: FAMOTIDINE 20 MG TAB PO SCH ×2 (08:20→20:39)
[2020-02-02] MEDS: FERROUS FUMARATE/ASCORBIC ACID 65 MG CAPCR PO SCH (08:20)
[2020-02-02] MEDS: MULTIVITAMIN TAB PO SCH (08:20)
[2020-02-02] MEDS: PSYLLIUM 58.6% POWDER PACKET PO SCH (08:20)
[2020-02-02] MEDS: FUROSEMIDE 20 MG TAB PO SCH (08:20)
[2020-02-02] MEDS: ASPIRIN 81 MG ECTAB PO SCH (08:20)
[2020-02-02] MEDS: levETIRAcetam 500 MG TAB PO SCH ×2 (08:20→20:39)
[2020-02-02] MEDS: HEPARIN SOD 5,000 UNIT/0.5 ML VIAL SQ SCH ×2 (08:21→20:46)
[2020-02-02] MEDS: amLODIPine BESYLATE 5 MG TAB PO SCH (08:21)
[2020-02-02] MEDS: CLOPIDOGREL BISULFATE 75 MG TAB PO SCH (08:21)
[2020-02-02] MEDS: CHOLECALCIFEROL 1,000 UNITS 25 MCG TAB PO SCH (08:21)
[2020-02-02] MEDS: TIMOLOL MALEATE 0.25% OP SOLN 5 ML BTL OPL SCH (08:22)
--- NOTE | 2020-02-02 12:08 | Hospitalist Progress Note ---
Date of Service February 02, 2020 Assessment & Plan (1) Stroke: MRI did show possible peripheral left posterior occipital infarct Presented with recurrent visual symptoms suggestive of amaurosis fugax with prior history of CVA and carotid artery disease status post surgery No other focal localizing signs MRI-question a thin band of linear restricted diffusion involving the peripheral left posterior occipital cortex MRA of the neck showed stenotic lesions involving the origins of the left common carotid and right innominate arteries, suspected high-grade stenosis of proximal right internal carotid artery MRA of the head showed-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 Echo of the heart showed-normal LV size, EF 55 to 60%, RV systolic function is normal, LA is moderately dilated, mild aortic regurgitation and grade 1 diastolic dysfunction Appreciate vascular surgery input with plan for carotid enterectomy for stenosis of the right ICA on the line Appreciate neurology input and recommendation Repeat MRI did show left posterior occipital cortex infarct Plan to continue aspirin and Plavix for 21 days and then Plavix alone to continue Will have outpatient Zio patch and possible ambulatory EEG Will need outpatient ophthalmology appointment for ongoing eye symptoms Has been started on oral Keppra as per neurologist Remains stable but visual symptoms continued Has severe stenotic disease involving the arterial systems in multiple areas Right internal carotid stenosis seems to be worse Appreciate vascular surgery input and recommendation for possible endarterectomy down the line Appreciate cardiology input and recommendation for surgical risk stratification Management as per vascular surgery Awaiting vascular surgery evaluation and management plan discussed with the Possible seizure disorder Given the symptomatology Initial EEG has been negative for any seizure Will put her on Keppra 500 mg twice daily as per recommendation from neurologist Still having episodes of visual disturbance No episodes of seizures before admission or during the hospital stay (2) Hypotension: -Noted be hypotensive in the ED, lowest BP recorded 67/53 -Repeated taking of blood pressure did not show any better result in the emergency room or on floor -She did not have any acute symptoms with this low blood pressure -Sepsis as a possible cause for hypotension has been ruled out and the ant ibiotics have been discontinued -She was transferred to ICU with continued hypotension from the floor last night and she received transient infusion of Levophed -Arterial line did show blood pressure to be upper normal -Her low blood pressure in the upper extremities is seems to be due to widespread arterial stenotic disease. (3) Hypertension: She has a history of hypertension but otherwise her blood pressure was noted to be on the lower side as an outpatient She has portal arterial A-line and that documented her blood pressure to be borderline high She has not been taking any medicine for blood pressure Likely to need small dose of antihypertensive to control blood pressure Blood pressure is taken over thighs-could be higher than in the arms For now we will continue amlodipine 2.5 mg daily High blood pressure remains at 161/94 Blood pressure has to be taken in thighs (4) Visual disturbance: She has been complaining of episodic visual loss suggestive of amaurosis fugax since end october Visual symptoms start with bright light followed by blindness which last for about an hour Had head CT on 01/22 that was unremarkable Likely secondary to recurrent TIAs As above-will need outpatient ophthalmology evaluation (5) Chronic diastolic CHF (congestive heart failure): -Appears euvolemic, may be on the hypovolemic side given hypotension -Holding diuretics for now, monitor volume status closely (6) History of CVA (cerebrovascular accident): -Continue aspirin and statin -She does not have any residual effect from prior CVA except questionable right- sided weakness (7) COPD (chronic obstructive pulmonary disease): -No signs of acute exacerbation (8) DVT prophylaxis: -SQ Heparin Admission and Anticipated Discharge Date Admission Date: January 28, 2020 Subjective 01/29/2020 The patient was seen and examined in ICU She is a 70-year-old female with significant past medical history of COPD, history of CVA with minimal right hemiparesis, history of carotid stenosis sta tus post CEA was admitted with visual symptoms suggestive of amaurosis fugax since end october. She is generally weak but denies any symptoms this morning Her blood pressure remains stable 01/30/2020 The patient was seen and examined in ICU She remains stable and has had one episode of visual disturbance in the form of bright light but no loss of vision Denies any other significant symptoms 01/31/2020 Patient was seen and examined in telemetry unit She remains anxious and generally weak he still has visual symptoms Denies any other significant symptoms 02/01/2020 The patient was seen and examined in telemetry unit in presence of the She has had 1 more episode of visual disturbance last night that lasted for 15 minutes Denies any other symptoms 02/02/2020 The patient was seen and examined in telemetry unit in presence of the Still complains to have visual disturbances in the form of bright lights without any visual loss She denies any other symptoms associated with it Review of Systems Review of Systems: All systems reviewed and are unremarkable except as noted below Constitutional: + weakness and + weight loss Neurologic: + generalized weakness and + problem reported (On and off visual symptoms suggestive of amaurosis fugax); no confusion Physical Exam Physical Exam: Lying in bed comfortably Constitutional: + ill appearing and + thin; no acute distress Eyes: PERRL, conjunctivae normal, anicteric sclerae ENMT: external ear and nose normal, oropharynx normal Neck: trachea midline, no thyromegaly Respiratory: normal respiratory effort; no respiratory distress Auscultation: lungs clear to auscultation bilaterally Cardiovascular: Rate/Rhythm: regular rate and regular rhythm Heart Sounds: + murmur (1/6 ESM over aortic area) Gastrointestinal (Abdomen): Inspection/Auscultation: abdomen normal to inspection; abdomen not distended Percussion/Palpation: abdomen soft; abdomen nontender Musculoskeletal: Denies any acute arthritis involving Neurologic: moves all extremities; no focal motor deficits Speech / Cognition: normal speech Motor/Sensory: no tremor Psychiatric: A+Ox3, euthymic affect Lymphatic: no cervical or axillary lymphadenopathy Results & Data Results & Data ([facility]) Vital Signs (Past 12 Hours) Vital Signs Temp Pulse Pulse Resp BP Pulse Ox 02/02/20 11:57 36.5 C 84 19 172/93 H 96 02/02/20 08:12 36.9 C 91 H 20 179/95 H 92 02/02/20 04:30 36.6 C 96 H 18 148/89 H 93 02/02/20 00:48 36.5 C 95 H 18 136/83 94 Laboratory Results Short CBC 02/02/20 Range/Units 06:30 WBC 6.04 (4.8-10.8) K/uL Hgb 11.8 L (12.0-16.0) g/dL Hct 35.7 L (37-47) % Plt Count 193 (130-400) K/uL BMP 02/02/20 06:30 Sodium 136 Potassium 3.6 Chloride 103 Carbon Dioxide 26 BUN 8 Creatinine 1.07 Glucose 93 Calcium 9.2 Medications Administered Current Inpatient Medications Acetaminophen (Acetaminophen 325 Mg Tab) 650 mg PO Q4H PRN PRN Reason: Pain or Fever Stop: 02/27/20 18:44 Albuterol (Albut/Ipratrop 3mg/0.5mg Neb 3 Ml Vial) 3 ml NEB Q4R PRN PRN Reason: Shortness Of Breath Or Wheezing Stop: 02/28/20 06:59 Amlodipine Besylate (Amlodipine Besylate 5 Mg Tab) [facility] Stop: 02/29/20 16:59 Last Admin: 02/02/20 08:21 Dose: 2.5 mg Documented by: Aspirin (Aspirin 81 Mg Ectab) 81 mg PO DAILY [facility] Stop: 02/28/20 08:59 Last Admin: 02/02/20 08:20 Dose: 81 mg Documented by: Atorvastatin Calcium (Atorvastatin 40 Mg Tab) 80 mg PO HS [facility] Stop: 02/27/20 20:59 Last Admin: 02/01/20 20:00 Dose: 80 mg Documented by: Clopidogrel Bisulfate (Clopidogrel Bisulfate 75 Mg Tab) [facility] Stop: 02/29/20 14:14 Last Admin: 02/02/20 08:21 Dose: 75 mg Documented by: Docusate Sodium/Ferrous Fumarate (Ferrous Fumarate/Ascorbic Acid 65 Mg Capcr) 65 mg PO DAILY [facility] Stop: 02/28/20 08:59 Last Admin: 02/02/20 08:20 Dose: 65 mg Documented by: Famotidine (Famotidine 20 Mg Tab) 20 mg PO BID [facility] Stop: 02/27/20 20:59 Last Admin: 02/02/20 08:20 Dose: 20 mg Documented by: Furosemide (Furosemide 20 Mg Tab) 10 mg PO QAM [facility] Stop: 02/28/20 08:59 Last Admin: 02/02/20 08:20 Dose: 10 mg Documented by: Heparin Sodium (Porcine) (Heparin Sod 5,000 Unit/0.5 Ml Vial) 5,000 units SQ Q12 [facility] Stop: 02/27/20 20:59 Last Admin: 02/02/20 08:21 Dose: 5,000 units Documented by: Ceftriaxone Sodium 1,000 mg/ (Dextrose) 50 mls @ 100 mls/hr IV Q24H [facility]; Protocol Stop: 02/13/20 13:59 Last Infusion: 02/01/20 14:00 Dose: Infused Documented by: Levetiracetam (Levetiracetam 500 Mg Tab) 500 mg PO Q12H [facility] Stop: 03/01/20 20:59 Last Admin: 02/02/20 08:20 Dose: 500 mg Documented by: Multivitamins (Multivitamin Tab) 1 tab [facility] Stop: 02/28/20 08:59 Last Admin: 02/02/20 08:20 Dose: 1 tab Documented by: Psyllium Hydrophilic Mucilloid (Psyllium 58.6% Powder Packet) 1 pkt [facility] Stop: 03/01/20 12:59 Last Admin: 02/02/20 08:20 Dose: 1 pkt Documented by: Timolol Maleate (Timolol Maleate 0.25% Op Soln 5 Ml Btl) 1 drops OPL [facility] Stop: 02/28/20 08:59 Last Admin: 02/02/20 08:22 Dose: 1 drops Documented by: Vitamin D (Cholecalciferol 1,000 Units 25 Mcg Tab) 2,000 units PO DAILY [facility] Stop: 02/28/20 08:59 Last Admin: 02/02/20 08:21 Dose: 2,000 units Documented by:
[2020-02-02] MEDS: cefTRIAXone SODIUM 1,000 MG in DEXTROSE 5% 50 ML IV SCH (14:11)
[2020-02-02] MEDS ORDERED: SODIUM CHLORIDE 0.65% NA SOLN 45 ML (OCEAN) ONE (18:26)
[2020-02-02] MEDS: ATORVASTATIN 40 MG TAB PO SCH (20:39)
[2020-02-03] MEDS: FAMOTIDINE 20 MG TAB PO SCH (07:53)
[2020-02-03] MEDS: CLOPIDOGREL BISULFATE 75 MG TAB PO SCH (07:54)
[2020-02-03] MEDS: ASPIRIN 81 MG ECTAB PO SCH (07:54)
[2020-02-03] MEDS: PSYLLIUM 58.6% POWDER PACKET PO SCH (07:54)
[2020-02-03] MEDS: MULTIVITAMIN TAB PO SCH (07:54)
[2020-02-03] MEDS: FUROSEMIDE 20 MG TAB PO SCH (07:54)
[2020-02-03] MEDS: levETIRAcetam 500 MG TAB PO SCH (07:54)
[2020-02-03] MEDS: CHOLECALCIFEROL 1,000 UNITS 25 MCG TAB PO SCH (07:54)
[2020-02-03] MEDS: FERROUS FUMARATE/ASCORBIC ACID 65 MG CAPCR PO SCH (07:54)
[2020-02-03] MEDS: HEPARIN SOD 5,000 UNIT/0.5 ML VIAL SQ SCH (07:55)
[2020-02-03] MEDS: amLODIPine BESYLATE 5 MG TAB PO SCH (07:55)
[2020-02-03] MEDS: TIMOLOL MALEATE 0.25% OP SOLN 5 ML BTL OPL SCH (07:55)
--- NOTE | 2020-02-03 10:13 | Cardiology Progress Note ---
Date of Service February 03, 2020 Assessment & Plan (1) Stenosis of right internal carotid artery: (2) Stenosis of artery of upper extremity: (3) Cerebrovascular insufficiency syndrome: (4) Stroke: (5) Visual disturbance: (6) Chronic diastolic CHF (congestive heart failure): (7) COPD (chronic obstructive pulmonary disease): (8) History of CVA (cerebrovascular accident): (9) Carotid stenosis: The patient is still considering her options regarding vascular intervention/surgery. I think it would be okay to discharge her home. She has been followed by [facility] vascular surgery in the past and may want to seek there opinion. I will arrange follow-up with our clinic. Admission and Anticipated Discharge Date Admission Date: January 28, 2020 Subjective No new cardiac complaints today. Patient is comfortably sitting in a chair. Her is in the room with her and all questions were answered. Review of Systems Review of Systems: All systems reviewed & are unremarkable except as noted in HPI & below Nothing additional to add. Physical Exam Physical Exam: General: no acute distress and stated age Head: normocephalic, no masses, lesions, tenderness or abnormalities Eyes: conjunctiva are pink and non-injected, sclera clear Neck: supple, no adenopathy, no bruits, normal jugular venous pulse, no hepatojugular reflux Chest: normal shape and normal respiratory effort Lungs: clear to auscultation and percussion Cardiac Exam: - regular rate & rhythm, no murmurs gallops or rubs - normal S1, normal S2 Pulses: 2(+) throughout Abdomen: abdomen soft, non-tender, no abnormal masses and no hepatosplenomegaly Musculoskeletal: no gait disturbance, no joint inflammation, no deforming arthritis Extremities: no edema and no cyanosis Neuro: grossly normal exam Results & Data ([facility]) Vital Signs (Past 12 Hours) Vital Signs Temp Pulse Resp BP Pulse Ox 02/03/20 07:52 36.6 C 97 H 16 195/96 H 97 02/03/20 04:50 36.5 C 89 18 148/95 H 95 02/02/20 23:54 36.6 C 102 H 18 158/92 H 92 Medications Administered Current Inpatient Medications Acetaminophen (Acetaminophen 325 Mg Tab) 650 mg PO Q4H PRN PRN Reason: Pain or Fever Stop: 02/27/20 18:44 Albuterol (Albut/Ipratrop 3mg/0.5mg Neb 3 Ml Vial) 3 ml NEB Q4R PRN PRN Reason: Shortness Of Breath Or Wheezing Stop: 02/28/20 06:59 Amlodipine Besylate (Amlodipine Besylate 5 Mg Tab) 2.5 mg PO QAM [facility] Stop: 02/29/20 16:59 Last Admin: 02/03/20 07:55 Dose: 2.5 mg Documented by: Aspirin (Aspirin 81 Mg Ectab) 81 mg PO DAILY [facility] Stop: 02/28/20 08:59 Last Admin: 02/03/20 07:54 Dose: 81 mg Documented by: Atorvastatin Calcium (Atorvastatin 40 Mg Tab) 80 mg PO HS [facility] Stop: 02/27/20 20:59 Last Admin: 02/02/20 20:39 Dose: 80 mg Documented by: Clopidogrel Bisulfate (Clopidogrel Bisulfate 75 Mg Tab) 75 mg PO QAM [facility] Stop: 02/29/20 14:14 Last Admin: 02/03/20 07:54 Dose: 75 mg Documented by: Docusate Sodium/Ferrous Fumarate (Ferrous Fumarate/Ascorbic Acid 65 Mg Capcr) 65 mg PO DAILY [facility] Stop: 02/28/20 08:59 Last Admin: 02/03/20 07:54 Dose: 65 mg Documented by: Famotidine (Famotidine 20 Mg Tab) 20 mg PO BID [facility] Stop: 02/27/20 20:59 Last Admin: 02/03/20 07:53 Dose: 20 mg Documented by: Furosemide (Furosemide 20 Mg Tab) 10 mg PO QAM [facility] Stop: 02/28/20 08:59 Last Admin: 02/03/20 07:54 Dose: 10 mg Documented by: Heparin Sodium (Porcine) (Heparin Sod 5,000 Unit/0.5 Ml Vial) 5,000 units SQ Q12 [facility] Stop: 02/27/20 20:59 Last Admin: 02/03/20 07:55 Dose: 5,000 units Documented by: Ceftriaxone Sodium 1,000 mg/ (Dextrose) 50 mls @ 100 mls/hr IV Q24H [facility]; Protocol Stop: 02/13/20 13:59 Last Infusion: 02/02/20 14:47 Dose: Infused Documented by: Levetiracetam (Levetiracetam 500 Mg Tab) 500 mg PO Q12H [facility] Stop: 03/01/20 20:59 Last Admin: 02/03/20 07:54 Dose: 500 mg Documented by: Multivitamins (Multivitamin Tab) 1 tab PO QAM [facility] Stop: 02/28/20 08:59 Last Admin: 02/03/20 07:54 Dose: 1 tab Documented by: Psyllium Hydrophilic Mucilloid (Psyllium 58.6% Powder Packet) [facility] Stop: 03/01/20 12:59 Last Admin: 02/03/20 07:54 Dose: 1 pkt Documented by: Timolol Maleate (Timolol Maleate 0.25% Op Soln 5 Ml Btl) 1 drops OPL [facility] Stop: 02/28/20 08:59 Last Admin: 02/03/20 07:55 Dose: 1 drops Documented by: Vitamin D (Cholecalciferol 1,000 Units 25 Mcg Tab) 2,000 units PO DAILY [facility] Stop: 02/28/20 08:59 Last Admin: 02/03/20 07:54 Dose: 2,000 units Documented by:
--- NOTE | 2020-02-03 10:30 | Communication Note ---
Date of Service: February 03, 2020 Pt and states they do not wish to have any surgery at this time and plan to go see her vascular surgeon at [facility] as scheduled in a few weeks. Advised them to call office if they have any other concerns.
--- NOTE | 2020-02-03 12:16 | Hospitalist Progress Note ---
Date of Service February 03, 2020 Assessment & Plan (1) Stroke: MRI did show possible peripheral left posterior occipital infarct Presented with recurrent visual symptoms suggestive of amaurosis fugax with prior history of CVA and carotid artery disease status post surgery No other focal localizing signs MRI-question a thin band of linear restricted diffusion involving the peripheral left posterior occipital cortex MRA of the neck showed stenotic lesions involving the origins of the left common carotid and right innominate arteries, suspected high-grade stenosis of proximal right internal carotid artery MRA of the head showed-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 Echo of the heart showed-normal LV size, EF 55 to 60%, RV systolic function is normal, LA is moderately dilated, mild aortic regurgitation and grade 1 diastolic dysfunction Appreciate vascular surgery input with plan for carotid enterectomy for stenosis of the right ICA on the line Appreciate neurology input and recommendation Repeat MRI did show left posterior occipital cortex infarct Plan to continue aspirin and Plavix for 21 days and then Plavix alone to continue Will have outpatient Zio patch and possible ambulatory EEG Will need outpatient ophthalmology appointment for ongoing eye symptoms Has been started on oral Keppra as per neurologist Remains stable but visual symptoms continued Has severe stenotic disease involving the arterial systems in multiple areas Right internal carotid stenosis seems to be worse Appreciate vascular surgery input and recommendation for possible endarterectomy down the line Appreciate cardiology input and recommendation for surgical risk stratification Management as per vascular surgery Awaiting vascular surgery evaluation and management plan discussed with the No surgical intervention now as per the vascular surgery Patient and the are aware about that-we will have a follow-up appointment in [place] in near future Possible seizure disorder Given the symptomatology Initial EEG has been negative for any seizure Will put her on Keppra 500 mg twice daily as per recommendation from neurologist Still having episodes of visual disturbance No episodes of seizures before admission or during the hospital stay (2) Hypotension: -Noted be hypotensive in the ED, lowest BP recorded 67/53 -Repeated taking of blood pressure did not show any better result in the emergency room or on floor -She did not have any acute symptoms with this low blood pressure -Sepsis as a possible cause for hypotension has been ruled out and the antibiotics have been discontinued -She was transferred to ICU with continued hypotension from the floor last night and she received transient infusion of Levophed -Arterial line did show blood pressure to be upper normal -Her low blood pressure in the upper extremities is seems to be due to widespread arterial stenotic disease. (3) Hypertension: She has a history of hypertension but otherwise her blood pressure was noted to be on the lower side as an outpatient She has portal arterial A-line and that documented her blood pressure to be borderline high She has not been taking any medicine for blood pressure Likely to need small dose of antihypertensive to control blood pressure Blood pressure is taken over thighs-could be higher than in the arms For now we will continue amlodipine 2.5 mg daily High blood pressure remains at 161/94 Blood pressure has to be taken in thighs-and this has been high at systolic 195 range Direct blood pressure taken through arterial line while she was in ICU did not show systolic blood pressure to be that high anytime We will continue with current blood pressure medicine and continue with her Spironolactone as an outpatient (4) Visual disturbance: She has been complaining of episodic visual loss suggestive of amaurosis fugax since end october Visual symptoms start with bright light followed by blindness which last for about an hour Had head CT on 01/22 that was unremarkable Likely secondary to recurrent TIAs As above-will need outpatient ophthalmology evaluation She will have an appointment with the senior writer sooner (5) Chronic diastolic CHF (congestive heart failure): -Appears euvolemic, may be on the hypovolemic side given hypotension -Holding diuretics for now, monitor volume status closely -No with small dose of diuretics at home as before (6) History of CVA (cerebrovascular accident): -Continue aspirin and statin -She does not have any residual effect from prior CVA except questionable right- sided weakness (7) COPD (chronic obstructive pulmonary disease): -No signs of acute exacerbation (8) DVT prophylaxis: -SQ Heparin Admission and Anticipated Discharge Date Admission Date: January 28, 2020 Subjective 01/29/2020 The patient was seen and examined in ICU She is a 70-year-old female with significant past medical history of COPD, history of CVA with minimal right hemiparesis, history of carotid stenosis status post CEA was admitted with visual symptoms suggestive of amaurosis fugax since end october. She is generally weak but denies any symptoms this morning Her blood pressure remains stable 01/30/2020 The patient was seen and examined in ICU She remains stable and has had one episode of visual disturbance in the form of bright light but no loss of vision Denies any other significant symptoms 01/31/2020 Patient was seen and examined in telemetry unit She remains anxious and generally weak he still has visual symptoms Denies any other significant symptoms 02/01/2020 The patient was seen and examined in telemetry unit in presence of the She has had 1 more episode of visual disturbance last night that lasted for 15 minutes Denies any other symptoms 02/02/2020 The patient was seen and examined in telemetry unit in presence of the Still complains to have visual disturbances in the form of bright lights without any visual loss She denies any other symptoms associated with it 02/03/2020 The patient was seen and examined in telemetry unit in presence of the She has been feeling a lot better and underwent PT and OT evaluation Denies any significant symptoms She is ready to be discharged Review of Systems Review of Systems: All systems reviewed and are unremarkable except as noted below Constitutional: + weakness and + weight loss Neurologic: + generalized weakness and + problem reported (On and off visual symptoms suggestive of amaurosis fugax); no confusion Physical Exam Physical Exam: Sitting on a chair without any acute distress Constitutional: + ill appearing and + thin; no acute distress Eyes: PERRL, conjunctivae normal, anicteric sclerae ENMT: external ear and nose normal, oropharynx normal Neck: trachea midline, no thyromegaly Respiratory: normal respiratory effort; no respiratory distress Auscultation: lungs clear to auscultation bilaterally Cardiovascular: Rate/Rhythm: regular rate and regular rhythm Heart Sounds: + murmur (1/6 ESM over aortic area) Gastrointestinal (Abdomen): Inspection/Auscultation: abdomen normal to inspection; abdomen not distended Percussion/Palpation: abdomen soft; abdomen nontender Musculoskeletal: No acute arthritis involving any joint Neurologic: moves all extremities; no focal motor deficits Speech / Cognition: normal speech Motor/Sensory: no tremor Psychiatric: A+Ox3, euthymic affect Lymphatic: no cervical or axillary lymphadenopathy Results & Data Results & Data ([facility]) Vital Signs (Past 12 Hours) Vital Signs Temp Pulse Resp BP Pulse Ox 02/03/20 07:52 36.6 C 97 H 16 195/96 H 97 02/03/20 04:50 36.5 C 89 18 148/95 H 95 Medications Administered Current Inpatient Medications Acetaminophen (Acetaminophen 325 Mg Tab) 650 mg PO Q4H PRN PRN Reason: Pain or Fever Stop: 02/27/20 18:44 Albuterol (Albut/Ipratrop 3mg/0.5mg Neb 3 Ml Vial) 3 ml NEB Q4R PRN PRN Reason: Shortness Of Breath Or Wheezing Stop: 02/28/20 06:59 Amlodipine Besylate (Amlodipine Besylate 5 Mg Tab) 2.5 mg PO QAM [facility] Stop: 02/29/20 16:59 Last Admin: 02/03/20 07:55 Dose: 2.5 mg Documented by: Aspirin (Aspirin 81 Mg Ectab) 81 mg PO DAILY [facility] Stop: 02/28/20 08:59 Last Admin: 02/03/20 07:54 Dose: 81 mg Documented by: Atorvastatin Calcium (Atorvastatin 40 Mg Tab) 80 mg PO HS [facility] Stop: 02/27/20 20:59 Last Admin: 02/02/20 20:39 Dose: 80 mg Documented by: Clopidogrel Bisulfate (Clopidogrel Bisulfate 75 Mg Tab) 75 mg PO QAM [facility] Stop: 02/29/20 14:14 Last Admin: 02/03/20 07:54 Dose: 75 mg Documented by: Docusate Sodium/Ferrous Fumarate (Ferrous Fumarate/Ascorbic Acid 65 Mg Capcr) 65 mg PO DAILY [facility] Stop: 02/28/20 08:59 Last Admin: 02/03/20 07:54 Dose: 65 mg Documented by: Famotidine (Famotidine 20 Mg Tab) 20 mg PO BID [facility] Stop: 02/27/20 20:59 Last Admin: 02/03/20 07:53 Dose: 20 mg Documented by: Furosemide (Furosemide 20 Mg Tab) 10 mg PO QAM [facility] Stop: 02/28/20 08:59 Last Admin: 02/03/20 07:54 Dose: 10 mg Documented by: Heparin Sodium (Porcine) (Heparin Sod 5,000 Unit/0.5 Ml Vial) 5,000 units SQ Q12 [facility] Stop: 02/27/20 20:59 Last Admin: 02/03/20 07:55 Dose: 5,000 units Documented by: Ceftriaxone Sodium 1,000 mg/ (Dextrose) 50 mls @ 100 mls/hr IV Q24H [facility]; Protocol Stop: 02/13/20 13:59 Last Infusion: 02/02/20 14:47 Dose: Infused Documented by: Levetiracetam (Levetiracetam 500 Mg Tab) 500 mg PO Q12H [facility] Stop: 03/01/20 20:59 Last Admin: 02/03/20 07:54 Dose: 500 mg Documented by: Multivitamins (Multivitamin Tab) 1 tab PO QAM [facility] Stop: 02/28/20 08:59 Last Admin: 02/03/20 07:54 Dose: 1 tab Documented by: Psyllium Hydrophilic Mucilloid (Psyllium 58.6% Powder Packet) 1 pkt PO QAM [facility] Stop: 03/01/20 12:59 Last Admin: 02/03/20 07:54 Dose: 1 pkt Documented by: Timolol Maleate (Timolol Maleate 0.25% Op Soln 5 Ml Btl) [facility] Stop: 02/28/20 08:59 Last Admin: 02/03/20 07:55 Dose: 1 drops Documented by: Vitamin D (Cholecalciferol 1,000 Units 25 Mcg Tab) 2,000 units PO DAILY [facility] Stop: 02/28/20 08:59 Last Admin: 02/03/20 07:54 Dose: 2,000 units Documented by:
--- NOTE | 2020-02-03 13:20 | Communication Note ---
Date of Service: February 03, 2020 Went over details of recommended procedure to increase cerebral flow. Told him that she may benefit from just stenting the left subclavian artery as this will increase her left vertebral flow. Her decided to do nothing at this time. Told him he can call the office if he has questions or changes his mind about intervention.
[2020-02-03] MEDS: cefTRIAXone SODIUM 1,000 MG in DEXTROSE 5% 50 ML IV SCH (13:51)
--- NOTE | 2020-02-04 10:46 | Discharge Summary ---
Date of Service February 04, 2020 Admission HPI Per Admitting Provider 70-year-old female with PMH COPD, history of CVA, GERD, history of perforated gastric ulcer, history of CEA, and other problems listed below who presents to the ED for evaluation of visual disturbance. Patient reports that at the end of October, she suffered a fall after tripping over her cat's water bowl. She reports that she had significant bruising to her face. Was seen by her PCP and head CT was ordered that was apparently unremarkable. Patient reports that since that time, she has been having episodes where her visual field becomes very bright and she is unable to see. reports the patient is also confused during these episodes. They would last for up to 30 minutes at a time. Episodes have been increasing in frequency over the past couple of weeks. Patient reports she also feels unsteady on her feet during these episodes. Denies any slurred speech, facial droop, difficulty speaking or understanding. No unilateral weakness, numbness, tingling. Denies lightheadedness, dizziness, diaphoresis, syncopal events. No chest pain or shortness of breath. Denies abdominal pain, nausea, vomiting, diarrhea. No other recent illnesses, fevers, chills. Denies urinary symptoms. Patient was seen in the ED on 01/22 for similar symptoms. Head CT was negative at that time. She was offered admission at that time however declined. Patient had another somewhat severe episode today so therefore presented back to the ED for evaluation. Denies any symptoms currently. In the ED today, patient's labs are unremarkable. Patient is found to be hypotensive with systolic blood pressures in the 80s to 90s. Patient is asymptomatic. She has received IVF. Admission Exam Per Admitting Provider Constitutional: WD/WN, vitals as above Eyes: PERRL, conjunctivae normal, anicteric sclerae ENMT: external ear and nose normal, oropharynx normal Respiratory: normal respiratory effort, lungs clear to auscultation Cardiovascular: Rate/Rhythm: regular rate and regular rhythm Vessels: normal peripheral pulses Extremities: no edema Gastrointestinal (Abdomen): normal bowel sounds, soft, nontender, no hepatosplenomegaly Musculoskeletal: no cyanosis or clubbing, extremities motor strength 5/5 Skin: no rashes, warm and dry Neurologic: PERRL, EOMI, accommodation nl, no face palsy, no dysarthria moves all extremities; no focal motor deficits Motor/Sensory: no pronator drift Psychiatric: A+Ox3, euthymic affect Principal Diagnosis Left posterior occipital infarct, severe stenotic disease involving the arterial system in multiple areas, possible seizure disorder, ongoing visual disturbances, chronic diastolic CHF, hypertension, history of COPD Discharge Exam Constitutional + ill appearing and + thin; no acute distress Eyes PERRL, conjunctivae normal, anicteric sclerae ENMT external ear and nose normal, oropharynx normal Neck trachea midline, no thyromegaly Respiratory normal respiratory effort; no respiratory distress Auscultation: lungs clear to auscultation bilaterally Cardiovascular Rate/Rhythm: regular rate and regular rhythm Heart Sounds: + murmur (1/6 ESM over aortic area) Gastrointestinal (Abdomen) Inspection/Auscultation: abdomen normal to inspection; abdomen not distended Percussion/Palpation: abdomen soft; abdomen nontender Neurologic moves all extremities; no focal motor deficits Speech / Cognition: normal speech Motor/Sensory: no tremor Psychiatric A+Ox3, euthymic affect Lymphatic no cervical or axillary lymphadenopathy Discharge Data Allergies Allergy/AdvReac Type Severity Reaction Status Date / Time hydrocodone Allergy Intermediate CONFUSION Verified 01/23/20 12:40 ramipril Allergy Intermediate Nausea Verified 01/23/20 12:40 Sulfa (Sulfonamide Allergy Intermediate Nausea Verified 01/23/20 12:40 Antibiotics) Consultations 01/28/20 16:22 ED Decision to Admit Stat 01/28/20 18:31 Consult Neurology Routine 01/29/20 00:22 Consult [employer] Routine 01/29/20 10:10 Consult Vascular Surgery Routine 01/31/20 09:33 Consult Cardiology Routine Ordered Studies 01/28/20 18:31 MR angio head wo con Urgent MR angio neck wo/w con Urgent MR brain wo/w con Urgent 01/29/20 00:22 US point of care ultrasound Stat 01/29/20 16:49 MR brain wo con Routine 01/30/20 13:18 CT angio chest w con Routine CT angio neck with con Routine Hospital Course (1) Stroke: MRI did show possible peripheral left posterior occipital infarct Presented with recurrent visual symptoms suggestive of amaurosis fugax with prior history of CVA and carotid artery disease status post surgery No other focal localizing signs MRI-question a thin band of linear restricted diffusion involving the peripheral left posterior occipital cortex MRA of the neck showed stenotic lesions involving the origins of the left common carotid and right innominate arteries, suspected high-grade stenosis of proximal right internal carotid artery MRA of the head showed-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 Echo of the heart showed-normal LV size, EF 55 to 60%, RV systolic function is normal, LA is moderately dilated, mild aortic regurgitation and grade 1 diastolic dysfunction Appreciate vascular surgery input with plan for carotid enterectomy for stenosis of the right ICA on the line Appreciate neurology input and recommendation Repeat MRI did show left posterior occipital cortex infarct Plan to continue aspirin and Plavix for 21 days and then Plavix alone to continue Will have outpatient Zio patch and possible ambulatory EEG Will need outpatient ophthalmology appointment for ongoing eye symptoms Has been started on oral Keppra as per neurologist Remains stable but visual symptoms continued Has severe stenotic disease involving the arterial systems in multiple areas Right internal carotid stenosis seems to be worse Appreciate vascular surgery input and recommendation for possible endarterectomy down the line Appreciate cardiology input and recommendation for surgical risk stratification Management as per vascular surgery Awaiting vascular surgery evaluation and management plan discussed with the laverne powell No surgical intervention now as per the vascular surgery Patient and the are aware about that-we will have a follow-up appointment in [place] in near future Possible seizure disorder Given the symptomatology Initial EEG has been negative for any seizure Will put her on Keppra 500 mg twice daily as per recommendation from neurologist Still having episodes of visual disturbance No episodes of seizures before admission or during the hospital stay (2) Hypotension: -Noted be hypotensive in the ED, lowest BP recorded 67/53 -Repeated taking of blood pressure did not show any better result in the emergency room or on floor -She did not have any acute symptoms with this low blood pressure -Sepsis as a possible cause for hypotension has been ruled out and the antibiotics have been discontinued -She was transferred to ICU with continued hypotension from the floor last night and she received transient infusion of Levophed -Arterial line did show blood pressure to be upper normal -Her low blood pressure in the upper extremities is seems to be due to widespread arterial stenotic disease. (3) Hypertension: She has a history of hypertension but otherwise her blood pressure was noted to be on the lower side as an outpatient She has portal arterial A-line and that documented her blood pressure to be borderline high She has not been taking any medicine for blood pressure Likely to need small dose of antihypertensive to control blood pressure Blood pressure is taken over thighs-could be higher than in the arms For now we will continue amlodipine 2.5 mg daily High blood pressure remains at 161/94 Blood pressure has to be taken in thighs-and this has been high at systolic 195 range Direct blood pressure taken through arterial line while she was in ICU did not show systolic blood pressure to be that high anytime We will continue with current blood pressure medicine and continue with her Spironolactone as an outpatient (4) Visual disturbance: She has been complaining of episodic visual loss suggestive of amaurosis fugax since end of October Visual symptoms start with bright light followed by blindness which last for about an hour Had head CT on 01/22 that was unremarkable Likely secondary to recurrent TIAs As above-will need outpatient ophthalmology evaluation She will have an appointment with the international exchange coordinator sooner (5) Chronic diastolic CHF (congestive heart failure): -Appears euvolemic, may be on the hypovolemic side given hypotension -Holding diuretics for now, monitor volume status closely -No with small dose of diuretics at home as before (6) History of CVA (cerebrovascular accident): -Continue aspirin and statin -She does not have any residual effect from prior CVA except questionable right- sided weakness (7) COPD (chronic obstructive pulmonary disease): -No signs of acute exacerbation (8) DVT prophylaxis: -SQ Heparin Total Time Total Time Spent Total Time Spent (In Minutes): 35 minutes Total Time Includes: Examination of the Patient, Discharge Planning, Medication Reconciliation and Communication With Other Providers Discharge Plan Discharge Items Patient Disposition: Home - Home Health Services Reason For Visit: HYPOTENSION Discharge Diagnosis: Left posterior occipital infarct, severe stenotic disease involving the arterial system in multiple areas, possible seizure disorder, ongoing visual disturbances, chronic diastolic CHF, hypertension, history of COPD Condition on Discharge: Fair Activity: Resume your previous activity Non-emergency contact: Primary Care Provider Call non-emergency contact if: you have any medication questions and your symptoms worsen Follow-up/Referrals: Sherwin Garcia MD [Primary Care Provider] - (Date & Time 02/05/2020 11:20 AM Provider Sherwin Garcia MD Department General Internal Medicine [facility] ) Diet: Heart Healthy Addtl Attending Provider Instructions: Please take precaution to avoid fall. Please make an appointment with international exchange coordinator through your PCPs office. [facility] cardiology will call with an appointment Please make an appointment with Neurology in 4-6 weeks Pending Studies at Discharge: No Stand-Alone Forms: My [facility] Universal Ad, Smoking Cessation Medications and DC Order Prescriptions: New levetiracetam [Keppra] 500 mg Tablet 500 mg PO Q12H 30 Days Qty: 60 RF: 0 clopidogrel 75 mg Tablet 75 mg PO QAM 15 Days Qty: 15 RF: 0 amlodipine [Norvasc] 5 mg Tablet 2.5 mg PO QAM 30 Days Qty: 15 RF: 0 Continued levalbuterol tartrate 45 mcg/actuation HFA aerosol inhaler 2 puffs inhalation Q6H PRN (Reason: shortness of breath or wheezing) Qty: 15 RF: 0 multivitamin Tablet 1 tab PO QAM RF: 0 atorvastatin 80 mg Tablet 80 mg PO HS RF: 0 omega 5-pqh-yre-fish oil [Fish Oil] 1,000 mg (120 mg-180 mg) Capsule 1,000 mg PO QAM RF: 0 furosemide [Lasix] 20 mg tablet 10 mg PO DAILY RF: 0 acetaminophen [Tylenol Extra Strength] 500 mg Tablet 500 mg PO QID PRN (Reason: Pain) RF: 0 famotidine 20 mg tablet 20 mg PO BID RF: 0 timolol maleate 0.5 % drops 1 drp OPL QAM RF: 0 spironolactone 25 mg tablet 12.5 mg PO DAILY RF: 0 aspirin 81 mg Tablet,Delayed Release (Dr/Ec) 81 mg PO DAILY RF: 0 Vitron-C 65 mg iron- 125 mg tablet,delayed release (DR/EC) 1 tab PO DAILY RF: 0 cholecalciferol (vitamin D3) 50 mcg (2,000 unit) Capsule 50 mcg PO DAILY RF: 0 Discharge Orders: Discharge Order (Routine); Ordered 02/03/20 Ordered By: Tacos Connolly Admission Data Admit Date/Time: 01/28/20 17:11 Attending Provider: Tacos Connolly Admit Provider: Tcaos Connolly Primary Care Provider: Sherwin Garcia Other Providers: Gab Gonzales ; Ronn Lubin ; Yunior Cui ; Norbert Haddad ; Quique Martinez ; [facility] Other Interventions: Discharge Summary Assessment (RN) Last Done: 02/03/20 15:09
--- NOTE | 2020-02-22 12:22 | Coding Query ---
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 Please assist us with the question(s) below: Coding Question(s): Please clarify if the carotid stenosis caused the CVA. Physician's Response(s): It is possible but can not be confirmed. mentioned in the progress note . Thank you Cassie Infante Principal Diagnosis: "that condition established after study, to be chiefly responsible for occasioning the admission of the patient to the hospital for care." Co-Existing Principal Diagnosis: "when two or more diagnoses equally meet the criteria for principal diagnosis as determined by the circumstances of admission, diagnostic work up, and/or therapy provided, and the Alphabetic Index, Tabular List, or another coding guideline does not provide sequencing direction, any one of the diagnoses may be sequenced first." "When the physician has documented what appears to be a current diagnosis in the body of the record, but has not included the diagnosis in the final diagnostic statement, the physician should be asked whether the diagnosis should be added." (Source [facility] QTR90. p3-4) KARISHMA
== END 2020-02-03 16:01 | disposition home health service (06) | DRG 65 ==
LOC: ED 12:51 → 2S 17:11 → 1E 01-29 00:20 → 2S 01-30 12:57

== ENCOUNTER 2020-03-10 07:30 | Inpatient (IN) ==
[2020-03-10] MEDS ORDERED: SODIUM CHLORIDE 0.9% 1000ML 1,000 ML IV ONE (08:20)
--- NOTE | 2020-03-10 08:24 | Emergency Department Note ---
Impression & Plan Stroke-like symptom, Hypertension, History of CVA (cerebrovascular accident), Cerebrovascular insufficiency syndrome, Dysarthria, Aphasia, Hypokalemia, Dehydration ED Provider Note NAME: LAINE WADDELL AGE: 70 SEX: F ARRIVES VIA: Ambulance INFORMANT: Patient, ED PROVIDER(S): Harry Omalley MD CHIEF COMPLAINT: Stroke-like symptoms. PLAN: Disposition: Admit MEDICAL DECISION MAKING: The patient is a pleasant 70-year-old woman with a past medical history of CVA, COPD, GERD, history of gastric ulcer with perforation, history of CVA as with a history of CEA, recent admission from 01/27-02/03 where she was diagnosed with a left posterior occipital infarct in setting of presenting to the hospital with visual symptoms, and the patient's report that she also was experiencing fatigue and had some delayed word finding at that time to where he "thought it was like she was drunk" who presents emergency department for having episode this morning of inability to speak, confusion, left facial droop, BLE leg weakness unable to sit up out of bed who upon arrival has improved to her recent baseline. Of note, the patient was seen in the emergency department on 02/17 for worsening of previous symptoms of word finding difficulty and dysarthria and had CT a of her head and neck at that time that did not show any significant change from her extensive cerebrovascular disease and she was recommended admission but the patient declined/would not agree to admission and so was discharged AMA. Today she is reluctant but agrees with admission. The reports they had an appointment yesterday to have EEG leads placed to have home EEG performed but she grew agitated and pulled off the leads when she got home. They deny fevers, chills, cough, congestion, n/v/d, urinary sx. On arrival the patient is fatigued appearing but in NAD AF, hypertensive with VS otherwise stable. Of note, 2/2 patient severe vascular disease of UE BP are performed on patient's thigh. She appears clinical dry. She has subtle intermittent dysarthric speech and mildly delayed word finding. Face is symmetric. Extremities with symmetric 4+/5 strength. EKG without evidence of acute ischemia. CXR negative for acute process. WBC, H/H, platelets wnl. Chemistry without acidosis. Cr. 1.3 c/w patient's clinically dry appearance. Potassium 2.9. Otherwise, LFTs and electrolytes unremarkable. Troponin negative. TSH .17 with Free T4 1.64. UA negative for infection. CT head and CT head and neck without acute ischemia or ICH but does demonstrate the patient's known severe vascular disease. Case was discussed with Michelle Apple, [facility] PAC, with Dr. Barber, [facility] hospitalist who will evaluate the patient for admission. Triage Nursing notes reviewed and agree them. Additional history obtained from Prior medical records reviewed Vital Signs: reviewed and remarkable for hypertension. Differential diagnosis: Infection, dehydration, metabolic abnormality, hypo/hyperglycemia, electrolyte disturbance, anemia, hypoxia, cardiac sources, intracerebral event, toxicologic, neurologic, as well as other pathologies. ER treatment provided: See below. Diagnostics interpreted by me: ECG: Sinus tachycardia, 103 bpm, PVCs, no overt ST elevation or depression. Similar to 02/18/2020 Cardiac Monitoring: An order for continuous cardiac monitoring was placed and demonstrated Sinus tachycardia, 103 bpm, PVCs. Laboratory studies: See below Imaging studies: SINGLE VIEW CHEST CLINICAL HISTORY: Strokelike symptoms. FINDINGS: An AP, portable, upright chest radiograph is compared to study dated 02/18/2020 and correlated with chest CT dated 01/30/2020. The heart is mildly enlarged noting atherosclerotic calcification of the thoracic aorta. The pulmonary vasculature is noncongested. Emphysema and chronic interstitial thi ckening is similar to previous. There is chronic elevation of the left hemidiaphragm noting bibasilar scarring/atelectasis. No pneumothorax is seen. The skeletal structures are osteopenic. The bony thorax is grossly intact. Degenerative change and scoliosis is noted in the thoracolumbar spine. IMPRESSION: Cardiomegaly, emphysema, and chronic parenchymal changes as above. No acute cardiopulmonary abnormality is identified. CT SCAN OF THE BRAIN WITHOUT IV CONTRAST CLINICAL HISTORY: Strokelike symptoms. COMPARISON STUDY: CT of the brain dated 02/18/2020. TECHNIQUE: Unenhanced axial CT scan of the brain is performed from the vertex to the skull base. A dose lowering technique was utilized adhering to the principles of ALARA. FINDINGS: Brain parenchyma: Small foci of left frontal encephalomalacia are unchanged and consistent with remote infarcts. A chronic lacunar infarct is seen in the right cervical hemisphere. There are age-related involutional changes noting moderate to advanced confluent subcortical and periventricular microangiopathic change. There is no hemorrhage, mass effect, or evidence of acute territorial ischemia by CT criteria. Scattered parenchymal calcifications are incidentally noted and unchanged. Hernandez-white matter differentiation is preserved. No extra-axial fluid collection is seen. Ventricles, sulci, cisterns: Prominent secondary to involutional change. Intracranial vasculature: There is atherosclerotic calcification of the cavernous carotid arteries. Calvarium: Unremarkable. Sinuses and mastoids: There is near complete opacification of the left sphenoid sinus. Thickening and sclerosis of the sinus wall indicating chronicity. The remaining visualized paranasal sinuses are clear. There is a large left mastoid effusion. The right mastoid air cells are well pneumatized. Orbits: The bony orbits are grossly intact. There are bilateral ocular lens implants. IMPRESSION: There is no hemorrhage, mass effect, or evidence of acute territorial ischemia by CT criteria. -- CT angio head w con CLINICAL HISTORY: Stroke evaluation LEFT FACIAL DROOP. DIFFICULTY SPEAKING. TECHNIQUE: CT angiography of the head was performed in a dynamic helical fashion during intravenous administration of 120 cc of Optiray 320. MIP imaging was performed. A dose lowering technique was utilized adhering to the principles of ALARA. CT DOSE: 977.63 mGy.cm COMPARISON STUDY: 02/18/2020 FINDINGS: There is sphenoid sinus mucosal disease. There is a droplet of air in the region of the right cavernous sinus. 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 There is a 50% diameter narrowing of the right supraclinoid internal carotid. There is a 40% diameter narrowing of the left supraclinoid internal carotid. There is no evidence of major intracranial branch occlusion. IMPRESSION: 1. No significant change from the prior study 2. 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 50% diameter narrowing of the right supraclinoid internal carotid 4. 40% diameter narrowing of the left supraclinoid internal carotid -- CT angio neck with con CLINICAL HISTORY: Stroke evaluation COMPARISON STUDY: 02/18/2020 TECHNIQUE: CT angiography was performed from the aortic arch to the skull base. MIP imaging was performed. The patient was scanned in a dynamic helical fashion during intravenous administration of 120 cc of Optiray 320. A dose lowering technique was utilized adhering to the principles of ALARA. CT DOSE: Technique: CT angiogram of the carotid and vertebral arteries was obtained using intravenous contrast and 3-D reconstruction. NASCET criteria was utilized. Findings: There is extensive calcific plaque involving the right carotid bulb and proximal internal carotid which reduces the accuracy of stenosis measurements. There is an estimated 80+% diameter stenosis of the right internal carotid artery origin. There is a subtotal occlusion of the proximal right brachiocephalic artery. There is an 80% stenosis of the proximal left common carotid artery. There is no evidence of hemodynamic significant internal carotid artery stenosis. There is a 60% diameter stenosis of the proximal left vertebral artery. There is no right vertebral artery stenosis. There is however a subtotal occlusion of the right brachiocephalic artery. In addition there is a suspected occlusion of the left proximal subclavian artery. IMPRESSION: 1. No significant change from the preceding study 2. High-grade stenosis of the right internal carotid artery origin estimated to measure greater than 80% 3. 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 4. Occlusion of the proximal left subclavian artery. 5. 80% diameter stenosis of the proximal left common carotid artery 6. 60% diameter stenosis of the proximal left vertebral artery ACT 112: Negative or not required by law. Consultation(s): Case was discussed with Michelle Apple, [facility] PAC, with Dr. Barber, [facility] hospitalist who will evaluate the patient for admission. HPI: The patient is a pleasant 70-year-old woman with a past medical history of CVA, COPD, GERD, history of gastric ulcer with perforation, history of CVA as with a history of CEA, recent admission from 01/27-02/03 where she was diagnosed with a left posterior occipital infarct in setting of presenting to the hospital with visual symptoms, and the patient's report that she also was experiencing fatigue and had some delayed word finding at that time to where he "thought it was like she was drunk" who presents emergency department for having episode this morning of inability to speak, confusion, left facial droop, BLE leg weakness unable to sit up out of bed who upon arrival has improved to her recent baseline. Of note, the patient was seen in the emergency department on 02/17 for worsening of previous symptoms of word finding difficulty and dysarthria and had CT a of her head and neck at that time that did not show any significant change from her extensive cerebrovascular disease and she was recommended admission but the patient declined/would not agree to admission and so was discharged AMA. Today she is reluctant but agrees with admission. The reports they had an appointment yesterday to have EEG leads placed to have home EEG performed but she grew agitated and pulled off the leads when she got home. They deny fevers, chills, cough, congestion, n/v/d, urinary sx. ROS: See above HPI for pertinent positives & negatives. A total of 10 systems reviewed and were otherwise negative. PAST MEDICAL HISTORY:See Below PAST SURGICAL HISTORY:See Below FAMILY HISTORY:See Below SOCIAL HISTORY:See Below HOME MEDICATIONS:See Below ALLERGIES:See Below VITALS:See Below PHYSICAL EXAMINATION: GENERAL: Awake, alert, fatigued-appearing, in no distress HENT: Normocephalic, atraumatic. Oropharynx with dry mucous membranes and otherwise unremarkable. EYES: Normal conjunctiva. Sclera non-icteric. EOMI. No nystamgus. NECK: Supple. No nuchal rigidity. FROM. No JVD. RESPIRATORY: Clear to auscultation. CARDIAC: Regular rate, normal rhythm. Extremities warm and well perfused. Pulses equal. ABDOMEN: Soft, non-distended. No tenderness to palpation. No rebound or guarding. No masses. RECTAL: Deferred. MUSCULOSKELETAL: Chest examination reveals no tenderness. The back is symmetrical on inspection without obvious abnormality. There is no CVA tendernes s to palpation. No joint edema. LOWER EXTREMITIES: Calves are equal size bilaterally and non-tender. No edema. No discoloration. NEURO: subtle intermittent dysarthric speech and mildly delayed word finding. Face is symmetric. Extremities with symmetric 4+/5 strength. SKIN: No rash or jaundice noted. Harry Omalley MD Past Med/Surg History Medical History Anemia HX OF ANEMIA Atrial ectopic tachycardia [place] FOLLOWS WITH DR CONDON - LAST SEEN WEEK OF 09/30 Carotid stenosis S/P LEFT CEA (2012)- FOLLOWS WITH S IN [place] Chronic diastolic CHF (congestive heart failure) COPD (chronic obstructive pulmonary disease) GERD (gastroesophageal reflux disease) H/O gastric ulcer History of CVA (cerebrovascular accident) Hyperlipidemia Hypertension Prolonged Q-T interval on ECG PVD (peripheral vascular disease) Surgical History H/O exploratory laparotomy 08/25/2018. Done 2/2 perforated gastric ulcer. Flynn 3, Grade 1 view. 7.5 ETT placed. no issues. History of carotid endarterectomy LEFT CEA (2012) History of cataract extraction RIGHT AND LEFT History of hand surgery History of left hip replacement History of tonsillectomy Family History Other COPD (chronic obstructive pulmonary disease) Kidney disease Social History Smoking Status: Former smoker Tobacco Type: Cigarettes Years Smoked: 30; Smoking End Date: 1997; Second Hand Exposure: No; Do You Dip or Chew Tobacco: No; Hx Alcohol Use: Yes Alcohol type: wine Alcohol Intake Frequency: 2-4 x/Month Hx Substance Use: No Preferred Language: Kazakh Communication Ability: Effective Visual Impairment: No Limitations [employer] Required: No Beliefs That Will Affect Care: None marital status: Current Living Situation: Spouse Other Information That Helps Us Care for You: No Feels Safe at Home: Yes Safety Concerns: Feels Safe At This Time Assistive Devices: None Allergies Allergies Allergy/AdvReac Type Severity Reaction Status Date / Time hydrocodone Allergy Intermediate CONFUSION Verified 03/10/20 08:06 ramipril Allergy Intermediate Nausea Verified 03/10/20 08:06 Sulfa (Sulfonamide Allergy Intermediate Nausea Verified 03/10/20 08:06 Antibiotics) Home Meds Home Medications Medication Instructions Recorded Confirmed atorvastatin 80 mg PO HS 02/22/18 03/10/20 multivitamin 1 tab PO QAM 02/22/18 03/10/20 omega 5-[id number]-skm-fish oil [Fish Oil] 1,000 mg PO QAM 02/22/18 03/10/20 timolol maleate 1 drp OPL QAM 08/21/18 03/10/20 acetaminophen [Tylenol Extra 500 mg PO QID PRN 10/10/18 03/10/20 Strength] furosemide [Lasix] 10 mg PO DAILY 11/14/18 03/10/20 famotidine 20 mg PO BID 01/23/20 03/10/20 Vitron-C 1 tab PO DAILY 01/28/20 03/10/20 aspirin 81 mg PO DAILY 01/28/20 03/10/20 cholecalciferol (vitamin D3) 50 mcg PO DAILY 01/28/20 03/10/20 spironolactone 12.5 mg PO DAILY 01/28/20 03/10/20 amoxicillin 2,000 mg PO ONCE PRN 02/18/20 03/10/20 clopidogrel [Plavix] 75 mg PO DAILY 02/18/20 03/10/20 loratadine [Claritin] 10 mg PO DAILY 02/18/20 03/10/20 pantoprazole [Protonix] 20 mg PO DAILYBB 02/18/20 03/10/20 levetiracetam 500 mg PO BID 03/10/20 03/10/20 metoprolol succinate 25 mg PO DAILY 03/10/20 03/10/20 Results & Data (ED) Vital Signs Vital Signs - 24 hr 03/10/20 07:44 03/10/20 07:48 03/10/20 07:49 Temperature Temperature Source Pulse Rate 107 H 102 H Pulse Rate [Apical] Pulse Rate from SpO2 Sensor 105 H 99 H Respiratory Rate 22 21 Respiratory Effort / Characteristics Respiratory Depth Respiratory Pattern Blood Pressure 220/114 H Blood Pressure [Right Thigh] Blood Pressure Mean 141 Blood Pressure Mean [Right Thigh] Pulse Oximetry 92 92 95 Oxygen Delivery Method Room Air Sepsis Recent Fever Within 48 Hours Sepsis New/Unexplained Change in Mental Status Sepsis Action Taken by Nursing 03/10/20 07:50 03/10/20 07:51 03/10/20 08:00 Temperature 36.6 C Temperature Source Oral Pulse Rate 82 95 H Pulse Rate [Apical] 82 Pulse Rate from SpO2 Sensor 97 H Respiratory Rate 20 20 24 Respiratory Effort / Characteristics Non-Labored Spontaneous Non-Labored Spontaneous Respiratory Depth Normal Normal Respiratory Pattern Regular Regular Blood Pressure 209/105 H 218/112 H Blood Pressure [Right Thigh] 209/105 H Blood Pressure Mean 139 145 Blood Pressure Mean [Right Thigh] 139 Pulse Oximetry 95 95 96 Oxygen Delivery Method Room Air Room Air Sepsis Recent Fever Within 48 Hours No Sepsis New/Unexplained Change in Mental Status No Sepsis Action Taken by Nursing No Action Required 03/10/20 08:30 03/10/20 08:31 03/10/20 09:00 Temperature Temperature Source Pulse Rate 96 H 95 H 110 H Pulse Rate [Apical] Pulse Rate from SpO2 Sensor 99 H 96 H 96 H Respiratory Rate 20 20 20 Respiratory Effort / Characteristics Respiratory Depth Respiratory Pattern Blood Pressure 168/84 H 183/94 H Blood Pressure [Right Thigh] Blood Pressure Mean 95 126 Blood Pressure Mean [Right Thigh] Pulse Oximetry 94 95 93 Oxygen Delivery Method Sepsis Recent Fever Within 48 Hours Sepsis New/Unexplained Change in Mental Status Sepsis Action Taken by Nursing 03/10/20 09:30 03/10/20 09:31 03/10/20 10:00 Temperature Temperature Source Pulse Rate 92 H 95 H 92 H Pulse Rate [Apical] Pulse Rate from SpO2 Sensor 92 H 96 H Respiratory Rate 20 22 23 Respiratory Effort / Characteristics Respiratory Depth Respiratory Pattern Blood Pressure 208/84 H 201/137 H Blood Pressure [Right Thigh] Blood Pressure Mean 134 168 Blood Pressure Mean [Right Thigh] Pulse Oximetry 96 97 Oxygen Delivery Method Sepsis Recent Fever Within 48 Hours Sepsis New/Unexplained Change in Mental Status Sepsis Action Taken by Nursing 03/10/20 10:07 03/10/20 10:30 03/10/20 10:31 Temperature Temperature Source Pulse Rate 97 H 101 H 93 H Pulse Rate [Apical] Pulse Rate from SpO2 Sensor 99 H 94 H 87 Respiratory Rate 16 22 21 Respiratory Effort / Characteristics Respiratory Depth Respiratory Pattern Blood Pressure 147/107 H 187/109 H Blood Pressure [Right Thigh] Blood Pressure Mean 126 139 Blood Pressure Mean [Right Thigh] Pulse Oximetry 95 97 97 Oxygen Delivery Method Sepsis Recent Fever Within 48 Hours Sepsis New/Unexplained Change in Mental Status Sepsis Action Taken by Nursing 03/10/20 11:01 03/10/20 11:44 03/10/20 12:02 Temperature Temperature Source Pulse Rate 95 H 109 H 113 H Pulse Rate [Apical] Pulse Rate from SpO2 Sensor 95 H 104 H 100 H Respiratory Rate 23 23 16 Respiratory Effort / Characteristics Respiratory Depth Respiratory Pattern Blood Pressure 151/68 H 201/127 H 206/127 H Blood Pressure [Right Thigh] Blood Pressure Mean 102 139 153 Blood Pressure Mean [Right Thigh] Pulse Oximetry 95 97 97 Oxygen Delivery Method Room Air Room Air Room Air Sepsis Recent Fever Within 48 Hours Sepsis New/Unexplained Change in Mental Status Sepsis Action Taken by Nursing 03/10/20 12:31 03/10/20 13:01 03/10/20 13:30 Temperature Temperature Source Pulse Rate 96 H 109 H 98 H Pulse Rate [Apical] Pulse Rate from SpO2 Sensor 97 H 102 H 91 H Respiratory Rate 18 19 20 Respiratory Effort / Characteristics Respiratory Depth Respiratory Pattern Blood Pressure 175/92 H 188/107 H Blood Pressure [Right Thigh] Blood Pressure Mean 125 148 Blood Pressure Mean [Right Thigh] Pulse Oximetry 98 98 Oxygen Delivery Method Room Air Room Air Sepsis Recent Fever Within 48 Hours Sepsis New/Unexplained Change in Mental Status Sepsis Action Taken by Nursing 03/10/20 14:00 Temperature Temperature Source Pulse Rate 98 H Pulse Rate [Apical] Pulse Rate from SpO2 Sensor 91 H Respiratory Rate 24 Respiratory Effort / Characteristics Respiratory Depth Respiratory Pattern Blood Pressure 128/102 H Blood Pressure [Right Thigh] Blood Pressure Mean 108 Blood Pressure Mean [Right Thigh] Pulse Oximetry 96 Oxygen Delivery Method Sepsis Recent Fever Within 48 Hours Sepsis New/Unexplained Change in Mental Status Sepsis Action Taken by Nursing Laboratory Data Attestation: I reviewed the patient's lab results. Result diagrams: 03/10/20 08:47 03/10/20 15:02 Lab Results 03/10/20 03/10/20 03/10/20 Range/Units 08:47 08:47 08:47 WBC 6.25 (4.8-10.8) K/uL RBC 4.21 (4.2-5.4) M/uL Hgb 14.0 (12.0-16.0) g/dL Hct 42.3 (37-47) % MCV 100.5 H (80-100) fL MCH 33.3 (25-34) pg MCHC 33.1 (32-36) g/dL RDW Std Deviation 44.0 (36.4-46.3) fL RDW Coeff of Lyssa 12.1 (11.5-14.5) % Plt Count 271 (130-400) K/uL MPV 9.9 (7.4-10.4) fL Immature Gran % (Auto) 0.2 % Neut % (Auto) 62.1 % Lymph % (Auto) 28.6 % Bland % (Auto) 6.6 % Eos % (Auto) 2.2 % Baso % (Auto) 0.3 % Neut # (Auto) 3.88 (1.4-6.5) K/uL Lymph # (Auto) 1.79 (1.2-3.4) K/uL Bland # (Auto) 0.41 (0.11-0.59) K/uL Eos # (Auto) 0.14 (0-0.5) K/uL Baso # (Auto) 0.02 (0-0.2) K/uL Immature Gran # (Auto) 0.01 (0.00-0.02) K/uL PT 10.9 (9.0-12.0) Seconds INR 1.0 (0.9-1.1) APTT 26.2 (21.0-31.0) Seconds PTT Ratio 0.9 Sodium 137 (136-145) mmol/L Potassium 2.9 L (3.5-5.1) mmol/L Chloride 100 (98-107) mmol/L Carbon Dioxide 30 (21-32) mmol/L Anion Gap 7.0 (3-11) BUN 12 (7-18) mg/dl Creatinine 1.32 H (0.6-1.2) mg/dl Est Cr Clr Drug Dosing 30.9 ml/min Est GFR ( Amer) 46.9 Est GFR (Non-Af Amer) 40.5 BUN/Creatinine Ratio 8.8 L (10-20) Glucose 98 (70-99) mg/dl Calcium 9.6 (8.5-10.1) mg/dl Phosphorus 3.3 (2.5-4.9) mg/dl Magnesium 1.9 (1.8-2.4) mg/dl Total Bilirubin 1.1 H (0.2-1) mg/dl Direct Bilirubin 0.3 H (0-0.2) mg/dl AST 39 H (15-37) U/L ALT 31 (12-78) U/L Alkaline Phosphatase 54 (45-117) U/L Total Creatine Kinase 65 (26-192) U/L Troponin I < 0.015 (0-0.045) ng/ml Total Protein 8.4 H (6.4-8.2) gm/dl Albumin 3.9 (3.4-5.0) gm/dl Globulin 4.4 H (2.5-4.0) gm/dl Albumin/Globulin Ratio 0.9 (0.9-2) TSH 0.179 L (0.300-4.500) uIu/ml Free T4 1.64 H (0.8-1.6) ng/dl Urine Color Urine Appearance (Clear) Urine pH (4.5-7.5) Ur Specific Monroe (1.000-1.030) Urine Protein (Negative) Urine Glucose (UA) (Negative) Urine Ketones (Negative) Urine Blood (Negative) Urine Nitrite (Negative) Urine Bilirubin (Negative) Urine Urobilinogen (Negative) Ur Leukocyte Esterase (Negative) Urine WBC (Auto) (0-5) /hpf Urine RBC (Auto) (0-4) /hpf U Hyaline Cast (Auto) (0-5) /lpf U Epithel Cells (Auto) (0-5) /lpf Urine Bacteria (Auto) (Negative) 03/10/20 Range/Units 08:47 WBC (4.8-10.8) K/uL RBC (4.2-5.4) M/uL Hgb (12.0-16.0) g/dL Hct (37-47) % MCV (80-100) fL MCH (25-34) pg MCHC (32-36) g/dL RDW Std Deviation (36.4-46.3) fL RDW Coeff of Lyssa (11.5-14.5) % Plt Count (130-400) K/uL MPV (7.4-10.4) fL Immature Gran % (Auto) % Neut % (Auto) % Lymph % (Auto) % Bland % (Auto) % Eos % (Auto) % Baso % (Auto) % Neut # (Auto) (1.4-6.5) K/uL Lymph # (Auto) (1.2-3.4) K/uL Bland # (Auto) (0.11-0.59) K/uL Eos # (Auto) (0-0.5) K/uL Baso # (Auto) (0-0.2) K/uL Immature Gran # (Auto) (0.00-0.02) K/uL PT (9.0-12.0) Seconds INR (0.9-1.1) APTT (21.0-31.0) Seconds PTT Ratio Sodium (136-145) mmol/L Potassium (3.5-5.1) mmol/L Chloride (98-107) mmol/L Carbon Dioxide (21-32) mmol/L Anion Gap (3-11) BUN (7-18) mg/dl Creatinine (0.6-1.2) mg/dl Est Cr Clr Drug Dosing ml/min Est GFR ( Amer) Est GFR (Non-Af Amer) BUN/Creatinine Ratio (10-20) Glucose (70-99) mg/dl Calcium (8.5-10.1) mg/dl Phosphorus (2.5-4.9) mg/dl Magnesium (1.8-2.4) mg/dl Total Bilirubin (0.2-1) mg/dl Direct Bilirubin (0-0.2) mg/dl AST (15-37) U/L ALT (12-78) U/L Alkaline Phosphatase (45-117) U/L Total Creatine Kinase (26-192) U/L Troponin I (0-0.045) ng/ml Total Protein (6.4-8.2) gm/dl Albumin (3.4-5.0) gm/dl Globulin (2.5-4.0) gm/dl Albumin/Globulin Ratio (0.9-2) TSH (0.300-4.500) uIu/ml Free T4 (0.8-1.6) ng/dl Urine Color Yellow Urine Appearance Clear (Clear) Urine pH 6.0 (4.5-7.5) Ur Specific Monroe 1.015 (1.000-1.030) Urine Protein 2+ H (Negative) Urine Glucose (UA) Negative (Negative) Urine Ketones Negative (Negative) Urine Blood Negative (Negative) Urine Nitrite Negative (Negative) Urine Bilirubin Negative (Negative) Urine Urobilinogen Negative (Negative) Ur Leukocyte Esterase Negative (Negative) Urine WBC (Auto) 1-5 (0-5) /hpf Urine RBC (Auto) 0-4 (0-4) /hpf U Hyaline Cast (Auto) 1-5 (0-5) /lpf U Epithel Cells (Auto) 10-20 H (0-5) /lpf Urine Bacteria (Auto) Negative (Negative) Administered Medications Atorvastatin Calcium (Atorvastatin 40 Mg Tab) 80 mg PO HS MALLORY Stop: 04/09/20 20:59 Last Admin: 03/10/20 19:48 Dose: 80 mg Documented by: [id number] Famotidine (Famotidine 20 Mg Tab) 20 mg PO BID MALLORY Stop: 04/09/20 20:59 Last Admin: 03/10/20 19:47 Dose: 20 mg Documented by: [id number] Heparin Sodium (Porcine) (Heparin Sod 5,000 Unit/0.5 Ml Vial) 5,000 units SQ Q8 MALLORY Stop: 04/09/20 21:59 Last Admin: 03/10/20 20:58 Dose: Not Given Documented by: [id number] Potassium Chloride 20 meq/ (Sodium Chloride) 1,010 mls @ 100 mls/hr IV .Q10H6M MALLORY Stop: 03/10/20 23:05 Last Admin: 03/10/20 14:46 Dose: 100 mls/hr Documented by: [id number] Levetiracetam (Levetiracetam 500 Mg Tab) 500 mg PO BID MALLORY Stop: 04/09/20 20:59 Last Admin: 03/10/20 19:48 Dose: 500 mg Documented by: [id number] Discontinued Medications Aspirin (Aspirin 81 Mg Ectab) 81 mg PO NOW STA Stop: 03/10/20 12:51 Last Admin: 03/10/20 13:25 Dose: Not Given Documented by: [id number] Aspirin (Aspirin 81 Mg Chew) Confirm Administered Dose 81 mg .ROUTE .STK-MED ONE Stop: 03/10/20 12:55 Last Admin: 03/10/20 13:04 Dose: Not Given Documented by: [id number] Aspirin (Aspirin 300 Mg Supp) 300 mg KS ONE ONE Stop: 03/10/20 13:26 Last Admin: 03/10/20 13:45 Dose: Not Given Documented by: [id number] Clopidogrel Bisulfate (Clopidogrel Bisulfate 75 Mg Tab) 75 mg PO NOW ONE Stop: 03/10/20 13:31 Last Admin: 03/10/20 13:25 Dose: Not Given Documented by: [id number] Clopidogrel Bisulfate (Clopidogrel Bisulfate 75 Mg Tab) Confirm Administered Dose 75 mg .ROUTE .STK-MED ONE Stop: 03/10/20 12:57 Last Admin: 03/10/20 13:04 Dose: Not Given Documented by: [id number] Sodium Chloride (Nss 1000ml) 1,000 mls @ 999 mls/hr IV .Q1H1M ONE Stop: 03/10/20 09:20 Last Infusion: 03/10/20 10:35 Dose: 0 mls/hr Documented by: [id number] Admin: 03/10/20 08:58 Dose: 999 mls/hr Documented by: [id number] Sodium Chloride (Nss) 500 mls @ 999 mls/hr IV .Q31M ONE Stop: 03/10/20 11:55 Last Infusion: 03/10/20 14:27 Dose: 0 mls/hr Documented by: [id number] Admin: 03/10/20 12:00 Dose: 999 mls/hr Documented by: [id number] Potassium Chloride (K Mookie / Wtr) 10 meq in 100 mls @ 100 mls/hr IV Q1H MALLORY Stop: 03/10/20 13:29 Last Infusion: 03/10/20 14:27 Dose: 0 mls/hr Documented by: [id number] Admin: 03/10/20 13:07 Dose: 100 mls/hr Documented by: [id number] Infusion: 03/10/20 13:07 Dose: 0 mls/hr Documented by: [id number] Admin: 03/10/20 12:00 Dose: 100 mls/hr Documented by: [id number] Ioversol (Optiray 320 125ml) 120 ml IV ONCE ONE Stop: 03/10/20 11:23 Last Admin: 03/10/20 11:22 Dose: 120 ml Documented by: [id number] Discharge Plan Visit Data Chief Complaint: Stroke/CVA Symptoms ED Provider: Harry Omalley Discharge Problem: Stroke-like symptom, Hypertension, History of CVA (cerebrovascular accident), Cerebrovascular insufficiency syndrome, Dysarthria, Aphasia, Hypokalemia, Dehydration Patient Disposition: Admitted As Inpatient Discharge Instructions Interventions: ED Discharge Assessment Last Done: 03/10/20 15:24 Discharge Problem: Hypertension Qualifiers: Hypertension type: unspecified Qualified Code(s): I10 - Essential (primary) hypertension
[2020-03-10 09:20] LABS: Basophils # (auto) 0.02 K/uL (0-0.2); Basophils % (auto) 0.3 %; Eosinophils # (auto) 0.14 K/uL (0-0.5); Eosinophils % (auto) 2.2 %; Hematocrit (blood only) 42.3 % (37-47); Immature Granulocytes # (auto) 0.01 K/uL (0.00-0.02); Immature Granulocytes % (auto) 0.2 %; Lymphocytes # (auto) 1.79 K/uL (1.2-3.4); Lymphocytes % (auto) 28.6 %; Mean Corpuscular Hemoglobin 33.3 pg (25-34); Mean Corpuscular Hgb Conc 33.1 g/dL (32-36); Mean Corpuscular Volume 100.5 fL (80-100); Mean Platelet Volume 9.9 fL (7.4-10.4); Monocytes # (auto) 0.41 K/uL (0.11-0.59); Monocytes % (auto) 6.6 %; Neutrophils # (auto) 3.88 K/uL (1.4-6.5); Neutrophils % (auto) 62.1 %; Platelet Count 271 K/uL (130-400); RDW Coefficient of Variation 12.1 % (11.5-14.5); Red Blood Count 4.21 M/uL (4.2-5.4); White Blood Count 6.25 K/uL (4.8-10.8)
[2020-03-10 09:29] LABS: Appearance Urine Clear (Clear); Bacteria Urine Automated Negative (Negative); Bilirubin Urine Negative (Negative); Blood Urine Negative (Negative); Color Urine Yellow; Glucose Urine UA Negative (Negative); Ketones Urine Negative (Negative); Leukocyte Esterase Urine Negative (Negative); Nitrite Urine Negative (Negative); Protein Urine 2+ (Negative); RBC Urine Automated 0-4 /hpf (0-4); Specific Gravity Urine 1.015 (1.000-1.030); Urobilinogen Urine Negative (Negative)
[2020-03-10 09:32] LABS: Partial Thromboplastin Ratio 0.9; Partial Thromboplastin Time 26.2 Seconds (21.0-31.0); Prothrombin Time 10.9 Seconds (9.0-12.0)
[2020-03-10 09:35] LABS: Alanine Aminotransferase 31 U/L (12-78); Albumin Level 3.9 gm/dl (3.4-5.0); Aspartate Aminotransferase 39 U/L (15-37); BUN Creatinine Ratio 8.8 (10-20); Bilirubin Direct 0.3 mg/dl (0-0.2); Blood Urea Nitrogen 12 mg/dl (7-18); Calcium 9.6 mg/dl (8.5-10.1); Carbon Dioxide 30 mmol/L (21-32); Chloride 100 mmol/L (98-107); Creatinine Clr Calc Pharmacy 30.9 ml/min; Est GFR (African American) 46.9; Est GFR (Non-African American) 40.5; Glucose 98 mg/dl (70-99); Magnesium 1.9 mg/dl (1.8-2.4); Potassium 2.9 mmol/L (3.5-5.1); Sodium 137 mmol/L (136-145)
[2020-03-10 09:44] LABS: Albumin Globulin Ratio 0.9 (0.9-2); Alkaline Phosphatase 54 U/L (45-117); Bilirubin,Total 1.1 mg/dl (0.2-1); Creatine Kinase 65 U/L (26-192); Globulin 4.4 gm/dl (2.5-4.0); Phosphorus 3.3 mg/dl (2.5-4.9); Thyroid Stimulating Hormone 0.179 uIu/ml (0.300-4.500); Total Protein 8.4 gm/dl (6.4-8.2); Troponin I < 0.015 ng/ml (0-0.045)
--- NOTE | 2020-03-10 09:55 | XRay Report ---
SINGLE VIEW CHEST CLINICAL HISTORY: Strokelike symptoms. FINDINGS: An AP, portable, upright chest radiograph is compared to study dated 02/18/2020 and correla marcelo with chest CT dated 01/30/2020. The heart is mildly enlarged noting atherosclerotic calcification of the thoracic aorta. The pulmonary vasculature is noncongested. Emphysema and chronic interstitial thickening is similar to previous. There is chronic elevation of the left hemidiaphragm noting bibasi lar scarring/atelectasis. No pneumothorax is seen. The skeletal structures are osteopenic. The bony t horax is grossly intact. Degenerative change and scoliosis is noted in the thoracolumbar spine. IMPRESSION: Cardiomegaly, emphysema, and chronic parenchymal changes as above. No acute cardiopulmona ry abnormality is identified. ACT 112: Negative or not required by law. Electronically signed by: Natalio Wilson M.D. 03/10/2020 9:54 AM
[2020-03-10 09:56] LABS: T4 Free Thyroxine 1.64 ng/dl (0.8-1.6)
[2020-03-10] MEDS ORDERED: OPTIRAY 320 125ml IV ONE (11:22)
[2020-03-10] MEDS ORDERED: SODIUM CHLORIDE 0.9% 500 ML IV ONE (11:25)
--- NOTE | 2020-03-10 11:44 | CT Scan Report ---
CT SCAN OF THE BRAIN WITHOUT IV CONTRAST CLINICAL HISTORY: Strokelike symptoms. COMPARISON STUDY: CT of the brain dated 02/18/2020. TECHNIQUE: Unenhanced axial CT scan of the brain is performed from the vertex to the skull base. A do se lowering technique was utilized adhering to the principles of ALARA. FINDINGS: Brain parenchyma: Small foci of left frontal encephalomalacia are unchanged and consistent with remot e infarcts. A chronic lacunar infarct is seen in the right cervical hemisphere. There are age-related involutional changes noting moderate to advanced confluent subcortical and periventricular microang iopathic change. There is no hemorrhage, mass effect, or evidence of acute territorial ischemia by CT criteria. Scattered parenchymal calcifications are incidentally noted and unchanged. Hernandez-white itzel er differentiation is preserved. No extra-axial fluid collection is seen. Ventricles, sulci, cisterns: Prominent secondary to involutional change. Intracranial vasculature: There is atherosclerotic calcification of the cavernous carotid arteries. Calvarium: Unremarkable. Sinuses and mastoids: There is near complete opacification of the left sphenoid sinus. Thickening and sclerosis of the sinus wall indicating chronicity. The remaining visualized paranasal sinuses are cl ear. There is a large left mastoid effusion. The right mastoid air cells are well pneumatized. Orbits: The bony orbits are grossly intact. There are bilateral ocular lens implants. IMPRESSION: There is no hemorrhage, mass effect, or evidence of acute territorial ischemia by CT crit eria. ACT 112: Negative or not required by law. Electronically signed by: Natalio Wilson M.D. 03/10/2020 11:42 AM
--- NOTE | 2020-03-10 11:48 | CT Scan Report ---
CT angio neck with con CLINICAL HISTORY: Stroke evaluation COMPARISON STUDY: 02/18/2020 TECHNIQUE: CT angiography was performed from the aortic arch to the skull base. MIP imaging was perfo rmed. The patient was scanned in a dynamic helical fashion during intravenous administration of 120 c c of Optiray 320. A dose lowering technique was utilized adhering to the principles of ALARA. CT DOSE: Technique: CT angiogram of the carotid and vertebral arteries was obtained using intravenous contrast and 3-D reconstruction. NASCET criteria was utilized. Findings: There is extensive calcific plaque involving the right carotid bulb and proximal internal carotid whi ch reduces the accuracy of stenosis measurements. There is an estimated 80+% diameter stenosis of the right internal carotid artery origin. There is a subtotal occlusion of the proximal right brachiocep halic artery. There is an 80% stenosis of the proximal left common carotid artery. There is no evidence of hemodyna betzaida significant internal carotid artery stenosis. There is a 60% diameter stenosis of the proximal left vertebral artery. There is no right vertebral a rtery stenosis. There is however a subtotal occlusion of the right brachiocephalic artery. In additio n there is a suspected occlusion of the left proximal subclavian artery. IMPRESSION: 1. No significant change from the preceding study 2. High-grade stenosis of the right internal carotid artery origin estimated to measure greater than 80% 3. 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 4. Occlusion of the proximal left subclavian artery. 5. 80% diameter stenosis of the proximal left common carotid artery 6. 60% diameter stenosis of the proximal left vertebral artery ACT 112: Negative or not required by law. Electronically signed by: Jessee Harris M.D. 03/10/2020 11:47 AM
--- NOTE | 2020-03-10 11:54 | CT Scan Report ---
CT angio head w con CLINICAL HISTORY: Stroke evaluation LEFT FACIAL DROOP. DIFFICULTY SPEAKING. TECHNIQUE: CT angiography of the head was performed in a dynamic helical fashion during intravenous a dministration of 120 cc of Optiray 320. MIP imaging was performed. A dose lowering technique was util ized adhering to the principles of ALARA. CT DOSE: 977.63 mGy.cm COMPARISON STUDY: 02/18/2020 FINDINGS: There is sphenoid sinus mucosal disease. There is a droplet of air in the region of the rig ht cavernous sinus. 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 There is a 50% diameter na rrowing of the right supraclinoid internal carotid. There is a 40% diameter narrowing of the left sup raclinoid internal carotid. There is no evidence of major intracranial branch occlusion. IMPRESSION: 1. No significant change from the prior study 2. 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 50% diameter narrowing of the right supraclinoid internal carotid 4. 40% diameter narrowing of the left supraclinoid internal carotid ACT 112: Negative or not required by law. Electronically signed by: Jessee Harris M.D. 03/10/2020 11:53 AM
[2020-03-10] MEDS: POTASSIUM CHLORIDE / WTR 10 MEQ/100 ML PLCT IV SCH ×2 (12:00→13:07)
--- NOTE | 2020-03-10 12:31 | History & Physical Report ---
Date of Service March 10, 2020 Assessment & Plan (1) Stroke-like symptom: (2) History of CVA (cerebrovascular accident): (3) Cerebrovascular insufficiency syndrome: This is a 70-year-old female who has significant past medical history of left frontal lobe and will left occipital lobe CVA, severe cerebrovascular atherosclerosis, innominate artery stenosis, bilateral subclavian stenosis, aortic arch stenosis, chronic diastolic CHF, atrial ectopic tachycardia, history of SVT, cerebral aneurysm, HTN, CKD stage III, right renal atrophy, GERD, osteoporosis, P.O.A.G., who presents to ED secondary to strokelike symptoms starting at 6:15 AM. Pt with multiple cerebral vascular lesions including High-grade stenosis of the right internal carotid artery, subtotal occlusion of the right innominate artery, occlusion of the proximal left subclavian artery, 80% diameter stenosis of the proximal left common carotid artery, 60% stenosis of proximal left vertebral artery, subtotal occlusion of the proximal right brachiocephalic artery. Patient very high risk despite dual antiplatelet therapy for recurrent CVA and cognitive decline. She presents today with worsening dysarthria as well as difficulty tongue movement. Patient is overall very frustrated and depressed. She presents with hypertensive response. Admit to telemetry Consult neurology N.p.o. given failed dysphagia screen Speech therapy eval Patient refused rectal ASA Resume aspirin, Plavix, keppra when able to tolerate p.o. Patient also refusing MRI due to anxiety and refuses even despite lorazepam Continue high intensity statin Consult PT OT Consult psychiatry to assist in depression given current condition She was seen and evaluated by Dr. Haddad in previous admission, patient also sought second opinion at [place] Dr. Fernandes who recommends no further intervention given recent CVA She recently established with Surinder at home (4) Depressed affect: Patient with increased fatigue, increased sleeping and anhedonia Given visual changes and recurrent strokes likely component of depression playing a role Consult psychiatry -patient agreeable, as is to discuss further and possible initiation of antidepressant (5) Acute worsening of stage 3 chronic kidney disease: baseline Cr 1.0 bun/cr 12 and 1.32 today hold lasix/aldactone monitor renal fxn avoid nephrotoxic agents (6) Chronic diastolic CHF (congestive heart failure): euvolemic hold lasix/aldactone given mild JULIANN daily weight, strict I and O last echo 01/29/20 - EF 55-60%, grade 1 Diastolic dysfunction, left atrium moderately dilated, mild aortic regurg (7) Carotid stenosis: hx of L CEA as above (8) PVD (peripheral vascular disease): as above (9) Atrial ectopic tachycardia: continue metoprolol when able to tolerate PO add prn lopressor HR > 110 while NPO (10) Hypertension: Pt significantly hypertensive allow permissive HTN pt will need a higher than normal BP given significant cerebral vascular disease to perfuse brain hold lasix/aldactone given JULIANN resume metoprolol when able to tolerate PO (11) Hyperlipidemia: continue high intensity statin (12) COPD (chronic obstructive pulmonary disease): hx of tobacco abuse no acute exacerbation (13) GERD (gastroesophageal reflux disease): continue famotidine, PPI (14) DVT prophylaxis: SQ Heparin Disposition: admit to tele Follow up: PCP Dr. Garcia upon discharge Patient was seen and examined in collaboration with Dr. Barber, please see addendum History of Present Illness Chief Complaint: Stroke like sx starting at 0615. Primary Care Provider: Sherwin Garcia MD This is a 70-year-old female who has significant past medical history of left frontal lobe and will left occipital lobe CVA, severe cerebrovascular atherosclerosis, innominate artery stenosis, bilateral subclavian stenosis, aortic arch stenosis, chronic diastolic CHF, atrial ectopic tachycardia, history of SVT, cerebral aneurysm, HTN, CKD stage III, right renal atrophy, GERD, osteoporosis, P.O.A.G., who presents to ED secondary to strokelike symptoms s tarting at 6:15 AM. is at bedside. Her last known time well was prior to going to bed last evening around 10 PM. When she woke up had difficult time arousing patient in getting her to wake up. When she did wake up she was having difficulty moving right leg and right arm was tremulous. She also had worsened speech. She does have residual dysarthria at baseline secondary to prior CVAs; however, feels is worse. She also admits to intermittent worsening of vision. She has a very hard time describing it she denies any blurriness, double vision, scotomas. She denies any recent illness, fever, chills, sweats, lightheadedness, dizziness, chest pain, shortness breath, cough, hemoptysis, nausea, vomiting, abdominal pain. She denies any change in bowel or urinary habits. During event this morning she denies any loss of bowel or bladder control. denies any seizure activity. She was scheduled for EEG long-term and leads were placed, but she read these. She has recently established with Surinder at home. Patient admits appetite has been okay, but states her p.o. intake has decreased and decreased fluid intake. She does take medications, but did not take her aspirin Plavix this morning. Patient is very fatigued significant 12 hours a day and overall admits to change in mood. feels she is angry today. Patient states "I had a stroke again." Of significance patient was hospitalized 01/27 to 02/03/2020 secondary to left posterior occipital CVA. She was previously diagnosed with amaurosis fugax. At that time it was evident of her severe cerebrovascular atherosclerosis. She was seen and evaluated by vascular surgery who recommended surgical intervention; however patient declined at that time opted to pursue opinion in [place]. She was seen and evaluated in [place] and surgery was not recommended per family. At that time she was started on ASA and Plavix for 21 days on then chronic Plavix therapy. She was also seen in ED on 02/17 secondary to word finding difficulties and dysarthria which eventually resolved. Patient admission was recommended at that time but patient signed out AMA. In ED patient was severely hypertensive, current BP 188/107. CBC generally unremarkable, CMP revealed K2.9, creatinine 1.32, TSH 0.179, free T4 1.64. UA unremarkable. 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 Head CT revealed no acute intracranial process but did reveal old infarcts of left frontal with encephalomalacia and remote lacunar infarct. She failed dysphagia screen in ED and therefore did not receive any medication. Allergies Allergy/AdvReac Type Severity Reaction Status Date / Time hydrocodone Allergy Intermediate CONFUSION Verified 03/10/20 08:06 ramipril Allergy Intermediate Nausea Verified 03/10/20 08:06 Sulfa (Sulfonamide Allergy Intermediate Nausea Verified 03/10/20 08:06 Antibiotics) Home Medications Home Medications Medication Instructions Recorded Confirmed Type atorvastatin 80 mg PO HS 02/22/18 03/10/20 History multivitamin 1 tab PO QAM 02/22/18 03/10/20 History omega 5-orm-soi-fish oil [Fish Oil] 1,000 mg PO QAM 02/22/18 03/10/20 History timolol maleate 1 drp OPL QAM 08/21/18 03/10/20 History acetaminophen [Tylenol Extra 500 mg PO QID PRN 10/10/18 03/10/20 History Strength] furosemide [Lasix] 10 mg PO DAILY 11/14/18 03/10/20 History famotidine 20 mg PO BID 01/23/20 03/10/20 History Vitron-C 1 tab PO DAILY 01/28/20 03/10/20 History aspirin 81 mg PO DAILY 01/28/20 03/10/20 History cholecalciferol (vitamin D3) 50 mcg PO DAILY 01/28/20 03/10/20 History spironolactone 12.5 mg PO DAILY 01/28/20 03/10/20 History amoxicillin 2,000 mg PO ONCE PRN 02/18/20 03/10/20 History clopidogrel [Plavix] 75 mg PO DAILY 02/18/20 03/10/20 History loratadine [Claritin] 10 mg PO DAILY 02/18/20 03/10/20 History pantoprazole [Protonix] 20 mg PO DAILYBB 02/18/20 03/10/20 History levetiracetam 500 mg PO BID 03/10/20 03/10/20 History metoprolol succinate 25 mg PO DAILY 03/10/20 03/10/20 History Past Med/Surg History Medical History (Updated 03/10/20 @ 15:37 by Michelle Apple PA-C) Anemia HX OF ANEMIA Atrial ectopic tachycardia [facility] FOLLOWS WITH DR CONDON - LAST SEEN WEEK OF 09/30 Carotid stenosis S/P LEFT CEA (2012)- FOLLOWS WITH S IN [place] Chronic diastolic CHF (congestive heart failure) COPD (chronic obstructive pulmonary disease) GERD (gastroesophageal reflux disease) H/O gastric ulcer History of CVA (cerebrovascular accident) Hyperlipidemia Hypertension Prolonged Q-T interval on ECG PVD (peripheral vascular disease) Surgical History H/O exploratory laparotomy 08/25/2018. Done 2/2 perforated gastric ulcer. Flynn 3, Grade 1 view. 7.5 ETT placed. no issues. History of carotid endarterectomy LEFT CEA (2012) History of cataract extraction RIGHT AND LEFT History of hand surgery History of left hip replacement History of tonsillectomy Family History (Updated 03/10/20 @ 12:25 by Michelle Apple PA-C) Other COPD (chronic obstructive pulmonary disease) Kidney disease Social History (Updated 03/10/20 @ 13:57 by Michelle Apple PA-C) Smoking Status: Former smoker Tobacco Type: Cigarettes Years Smoked: 30; Smoking End Date: 1997; Second Hand Exposure: No; Do You Dip or Chew Tobacco: No; Hx Alcohol Use: Yes Alcohol type: wine Alcohol Intake Frequency: 2-4 x/Month Hx Substance Use: No Preferred Language: Georgian Communication Ability: Effective Visual Impairment: No Limitations 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 Beliefs That Will Affect Care: None marital status: Current Living Situation: Spouse Other Information That Helps Us Care for You: No Feels Safe at Home: Yes Safety Concerns: Feels Safe At This Time Assistive Devices: None Review of Systems Review of Systems: All systems reviewed & are unremarkable except as noted in HPI & below Physical Exam Physical Exam: Constitutional: Thin, petite, female, dysarthria noted, decreased eye contact, vitals as above, NAD, sitting up in bed, answers questions appropriate Head: Normocephalic, Atraumatic Eyes: PERRL, conjunctivae normal, anicteric sclerae ENMT: external ear and nose normal, oropharynx normal Neck: trachea midline, no thyromegaly normal visual inspection Respiratory: normal respiratory effort, lungs clear to auscultation, no wheeze, rales, rhonchi. Normal insp/exp effort, no accessory muscle use Cardiovascular: Tachycardic rate, regular rhythm, no murmur, no edema, decreased pedal pulses bilaterally, +1 vessels: no JVD or carotid bruit Chest: normal inspection of chest Abdomen: normal bowel sounds, soft, nontender, no hepatosplenomegaly Musculoskeletal: no cyanosis or clubbing, extremities motor strength 5/5 Skin: no rashes, warm and dry normal turgor Neurologic: PERRL, EOMI, accommodation nl, no face palsy, dysarthria, inability to move tongue past midline to right, difficulty following commands with [id number] and comprehending, CN's II-XI intact bilaterally and moves all extremities Psychiatric: A+Ox3, depressed affect Lymphatic: no cervical or axillary lymphadenopathy : deferred Results & Data Results & Data ([facility]) Vital Signs (Past 12 Hours) Vital Signs Temp Pulse Pulse Resp BP BP Pulse Ox 03/10/20 12:02 113 H 16 206/127 H 97 03/10/20 11:44 109 H 23 201/127 H 97 03/10/20 11:01 95 H 23 151/68 H 95 03/10/20 10:31 93 H 21 187/109 H 97 03/10/20 10:30 101 H 22 97 03/10/20 10:07 97 H 16 147/107 H 95 03/10/20 10:00 92 H 23 201/137 H 03/10/20 09:31 95 H 22 208/84 H 97 03/10/20 09:30 92 H 20 96 03/10/20 09:00 110 H 20 183/94 H 93 03/10/20 08:31 95 H 20 168/84 H 95 03/10/20 08:30 96 H 20 94 03/10/20 08:00 95 H 24 218/112 H 96 03/10/20 07:51 36.6 C 82 20 209/105 H 95 03/10/20 07:50 82 20 209/105 H 95 03/10/20 07:49 95 03/10/20 07:48 102 H 21 92 03/10/20 07:44 107 H 22 220/114 H 92 Laboratory Results Short CBC 03/10/20 Range/Units 08:47 WBC 6.25 (4.8-10.8) K/uL Hgb 14.0 (12.0-16.0) g/dL Hct 42.3 (37-47) % Plt Count 271 (130-400) K/uL BMP 03/10/20 08:47 Sodium 137 Potassium 2.9 L Chloride 100 Carbon Dioxide 30 BUN 12 Creatinine 1.32 H Glucose 98 Calcium 9.6 Cardiac Enzymes 03/10/20 Range/Units 08:47 Total Creatine Kinase 65 (26-192) U/L Troponin I < 0.015 (0-0.045) ng/ml Liver Function 03/10/20 Range/Units 08:47 Total Bilirubin 1.1 H (0.2-1) mg/dl Direct Bilirubin 0.3 H (0-0.2) mg/dl AST 39 H (15-37) U/L ALT 31 (12-78) U/L Alkaline Phosphatase 54 (45-117) U/L Albumin 3.9 (3.4-5.0) gm/dl Urine 03/10/20 Range/Units 08:47 Urine Color Yellow Urine Appearance Clear (Clear) Urine pH 6.0 (4.5-7.5) Ur Specific [place] 1.015 (1.000-1.030) Urine Protein 2+ H (Negative) Urine Glucose (UA) Negative (Negative) Diagnostic Findings Head/Neck CTA: Findings: There is extensive calcific plaque involving the right carotid bulb and proximal internal carotid which reduces the accuracy of stenosis measurements. There is an estimated 80+% diameter stenosis of the right internal carotid artery origin. There is a subtotal occlusion of the proximal right brachiocephalic artery. There is an 80% stenosis of the proximal left common carotid artery. There is no evidence of hemodynamic significant internal carotid artery stenosis. There is a 60% diameter stenosis of the proximal left vertebral artery. There is no right vertebral artery stenosis. There is however a subtotal occlusion of the right brachiocephalic artery. In addition there is a suspected occlusion of the left proximal subclavian artery. IMPRESSION: 1. No significant change from the preceding study 2. High-grade stenosis of the right internal carotid artery origin estimated to measure greater than 80% 3. 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 4. Occlusion of the proximal left subclavian artery. 5. 80% diameter stenosis of the proximal left common carotid artery 6. 60% diameter stenosis of the proximal left vertebral artery CXR: IMPRESSION: Cardiomegaly, emphysema, and chronic parenchymal changes as above. No acute cardiopulmonary abnormality is identified. Head CT: Brain parenchyma: Small foci of left frontal encephalomalacia are unchanged and consistent with remote infarcts. A chronic lacunar infarct is seen in the right cervical hemisphere. There are age-related involutional changes noting moderate to advanced confluent subcortical and periventricular microangiopathic change. There is no hemorrhage, mass effect, or evidence of acute territorial ischemia by CT criteria. Scattered parenchymal calcifications are incidentally noted and unchanged. Hernandez-white matter differentiation is preserved. No extra-axial fluid collection is seen. Ventricles, sulci, cisterns: Prominent secondary to involutional change. Intracranial vasculature: There is atherosclerotic calcification of the cavernous carotid arteries. Calvarium: Unremarkable. Sinuses and mastoids: There is near complete opacification of the left sphenoid sinus. Thickening and sclerosis of the sinus wall indicating chronicity. The remaining visualized paranasal sinuses are clear. There is a large left mastoid effusion. The right mastoid air cells are well pneumatized. Orbits: The bony orbits are grossly intact. There are bilateral ocular lens implants. IMPRESSION: There is no hemorrhage, mass effect, or evidence of acute territorial ischemia by CT criteria. Medications Administered Potassium Chloride (K Mookie / Wtr) 10 meq in 100 mls @ 100 mls/hr IV Q1H MALLORY Stop: 03/10/20 13:29 Last Admin: 03/10/20 12:00 Dose: 100 mls/hr Documented by: [id number] Discontinued Medications Sodium Chloride (Nss 1000ml) 1,000 mls @ 999 mls/hr IV .Q1H1M ONE Stop: 03/10/20 09:20 Last Infusion: 03/10/20 10:35 Dose: 0 mls/hr Documented by: [id number] Admin: 03/10/20 08:58 Dose: 999 mls/hr Documented by: [id number] Sodium Chloride (Nss) 500 mls @ 999 mls/hr IV .Q31M ONE Stop: 03/10/20 11:55 Last Admin: 03/10/20 12:00 Dose: 999 mls/hr Documented by: [id number] Ioversol (Optiray 320 125ml) 120 ml IV ONCE ONE Stop: 03/10/20 11:23 Last Admin: 03/10/20 11:22 Dose: 120 ml Documented by: [id number] ECG Rate (beats per minute): 103 Rhythm: sinus tachycardia Findings: + PAC, + PVC and + prolonged QT (505ms) Code Status & VTE Plan Code Status DNR VTE Prophylaxis Plan VTE Prophylaxis will be ordered: Yes Supervising Physician Co-Signing Physician Notes ATTENDING ADDENDUM : pt seen and examined ,care co-ordinated with Michelle QUINTERO this a 70 yo F with multiple co -morbidities , previous CVA presents with stroke like symptoms -slurred speech , rt facial droop CT of head and neck and CTA shows no new changes pt refused to have MRI of brain done due to severe anxiety , offered for low dose ativan prior to MRI -pt still refused -she believes what she is experiencing is another stroke adament about not repeating another MRI of brain pt's also reports that since last stroke 4 weeks back , pt been sleeping most part of the day , withdrawn , poor appetite pt is willing to have consult with Psychiatry for possible post stroke depression Physical exam : as per Michelle Singh PA-C Assessment and Plan : Acute /Sub acute CVA : hx of cerebrovascular disease Presents with strokelike symptoms, continue aspirin and Plavix and statin, neuro consult requested please refer to further documentation by Michelle Casillas PA-C for discussion of other chronic issues Lis Barber MD
[2020-03-10] MEDS ORDERED: MAGNESIUM HYDROXIDE SUSP 30 ML UDC PO PRN (12:42)
[2020-03-10] MEDS ORDERED: ONDANSETRON INJ 2 MG/ML 2 ML VIAL IV PRN (12:42)
[2020-03-10] MEDS ORDERED: ALUMINUM/MAGNESIUM SUSP 30 ML UDC PO PRN (12:42)
[2020-03-10] MEDS ORDERED: ACETAMINOPHEN 325 MG TAB PO PRN (12:42)
[2020-03-10] MEDS ORDERED: POLYETHYLENE (MIRALAX) 17 GM PACK PO PRN (12:42)
[2020-03-10] MEDS ORDERED: ASPIRIN 81 MG ECTAB PO STA (12:50)
[2020-03-10] MEDS ORDERED: PHARMACIST DISCHARGE MED REC CONSULT PRN (12:53)
[2020-03-10] MEDS ORDERED: ASPIRIN 81 MG CHEW ONE (12:54)
[2020-03-10] MEDS ORDERED: CLOPIDOGREL BISULFATE 75 MG TAB ONE (12:56)
[2020-03-10] MEDS ORDERED: POTASSIUM CHLORIDE 20 MEQ in SODIUM CHLORIDE 0.9% 1000ML 1,000 ML IV SCH (13:00)
[2020-03-10] MEDS ORDERED: ASPIRIN 300 MG SUPP PR ONE (13:25)
[2020-03-10] MEDS ORDERED: CLOPIDOGREL BISULFATE 75 MG TAB PO ONE (13:30)
[2020-03-10] MEDS ORDERED: METOPROLOL TARTRATE 1 MG/ML VIAL IV PRN (14:05)
[2020-03-10 15:52] LABS: BUN Creatinine Ratio 8.6 (10-20); Calcium 8.7 mg/dl (8.5-10.1); Creatinine Clr Calc Pharmacy 36.8 ml/min; Est GFR (African American) 57.9; Est GFR (Non-African American) 49.9; Potassium 3.3 mmol/L (3.5-5.1)
[2020-03-10 16:02] LABS: Thyroid Stimulating Hormone 0.129 uIu/ml (0.300-4.500)
[2020-03-10] MEDS: FAMOTIDINE 20 MG TAB PO SCH (19:47)
[2020-03-10] MEDS: ATORVASTATIN 40 MG TAB PO SCH (19:48)
[2020-03-10] MEDS: levETIRAcetam 500 MG TAB PO SCH (19:48)
[2020-03-10] MEDS: HEPARIN SOD 5,000 UNIT/0.5 ML VIAL SQ SCH (20:58)
[2020-03-11] MEDS: LORazepam 0.5 MG TAB PO PRN ×2 (00:22→12:24)
[2020-03-11] MEDS ORDERED: METOPROLOL TARTRATE 1 MG/ML VIAL IV STA (05:05)
[2020-03-11 06:20] LABS: Estimated Average Glucose 108 mg/dl; Hemoglobin A1C 5.4 % (4.5-5.6)
[2020-03-11] MEDS: PANTOprazole 40 MG TAB PO SCH ×2 (06:23→06:25)
[2020-03-11] MEDS: HEPARIN SOD 5,000 UNIT/0.5 ML VIAL SQ SCH ×4 (06:23→21:39)
[2020-03-11 06:44] LABS: BUN Creatinine Ratio 9.2 (10-20); Calcium 9.4 mg/dl (8.5-10.1); Creatinine Clr Calc Pharmacy 38.1 ml/min; Est GFR (African American) 60.5; Est GFR (Non-African American) 52.2; Magnesium 1.8 mg/dl (1.8-2.4); Potassium 3.6 mmol/L (3.5-5.1)
[2020-03-11 06:48] LABS: T4 Free Thyroxine 1.6 ng/dl (0.8-1.6)
[2020-03-11] MEDS: LORATADINE 10 MG TAB PO SCH (07:51)
[2020-03-11] MEDS: ASCORBIC ACID 500 MG TAB PO SCH (07:51)
[2020-03-11] MEDS: CHOLECALCIFEROL 1,000 UNITS 25 MCG TAB PO SCH (07:52)
[2020-03-11] MEDS: CLOPIDOGREL BISULFATE 75 MG TAB PO SCH (07:52)
[2020-03-11] MEDS: ACETAMINOPHEN 500 MG TAB PO PRN (07:52)
[2020-03-11] MEDS: FERROUS SULFATE 325 MG TAB PO SCH (07:53)
[2020-03-11] MEDS: ASPIRIN 81 MG ECTAB PO SCH (07:53)
[2020-03-11] MEDS: MULTIVITAMIN TAB PO SCH (07:53)
[2020-03-11] MEDS: levETIRAcetam 500 MG TAB PO SCH ×2 (07:53→21:39)
[2020-03-11] MEDS: FAMOTIDINE 20 MG TAB PO SCH ×2 (07:54→21:38)
[2020-03-11] MEDS: TIMOLOL MALEATE 0.5% OP SOLN 5 ML BTL OPL SCH (07:54)
[2020-03-11] MEDS: OMEGA-3 (PURIFIED FISH OIL) 1 GM CAP PO SCH (07:54)
--- NOTE | 2020-03-11 08:56 | Electrocardiogram Report ---
Test Reason : Blood Pressure : / mmHG Vent. Rate : 103 BPM Atrial Rate : 103 BPM P-R Int : 150 ms QRS Dur : 080 ms QT Int : 386 ms P-R-T Axes : 047 -08 062 degrees QTc Int : 505 ms Sinus tachycardia with Premature supraventricular complexes and with frequent Premature ventricular c omplexes Otherwise normal ECG When compared with ECG of 18-FEB-2020 17:45, Premature supraventricular complexes are now Present Confirmed by Ben Sheldon ([id number]) on 03/11/2020 8:56:04 AM Referred By: REFERRED SELF Confirmed By:Ben Sheldon
[2020-03-11] MEDS ORDERED: NON-FORMULARY MEDICATION (Iron,Carbonyl-Vitamin C [Vitron-C] 65 mg iron- 125 mg tablet,del PO SCH (09:00)
[2020-03-11] MEDS ORDERED: METOPROLOL SUCC 25MG EXT REL TAB PO SCH (09:00)
[2020-03-11] MEDS ORDERED: ASPIRIN 81 MG ECTAB PO SCH (09:00)
--- NOTE | 2020-03-11 09:15 | Psychiatric Consultation ---
Date of Consultation March 11, 2020 Impression / Recommendations Impression Dr. Adrienne Bragg was directly involved in review and discussion of the patient's case and participated in medical decision making regarding treatment recommendations. RECOMMENDATIONS: 03/11 - Psychiatric consultation was requested by our hospitalist service to evaluate patient for depression. - Pt appears confused and is disoriented. Pt is a limited historian and unable to provide accurate information regarding psychiatric symptoms at this time. shares that his primary concern is related to increased paranoia and visual disturbances/hallucinations. There is no known psychiatric history to explain these symptoms, and states onset was correlated to recent stroke. - Initial concern for prolonged QTc interval at 505, now borderline prolongation at 462. Given desire to avoid QTc prolonging agents, would advise caution regarding initiation of psychotropic agents until QTc is normalized. - In regard to paranoia/visual hallucinations - low-dose antipsychotic medication (quetiapine 12.5-25mg, or olanzapine 2.5mg) could be considered if these events are distressing to the patient or she is demonstrating signs of agitation. Would need to consider risk/benefit analysis of using these medications in this particular patient given not only QTc prolongation, but also Black Box Warning for increased risk of stroke or cardiac event when utilized in the elderly/demented population. Ideally we would utilize behavioral strategies to assist patient with reality testing and utilizing appropriate coping strategies. Recommend utilizing delirium protocol with frequent re-orientation, steps to support sleep/wake cycle, and avoidance of deliriogenic medications whenever possible. - We will continue to gather more accurate information regarding patient's mood state, as she is unable to provide a reliable account at this time. Again, until QTc is normalized, would not advise initiation of an antidepressant agent. Evaluation for significance of depressive symptoms could also be completed on an outpatient based as well. Could consider initiation of sertraline 25mg daily with titration as tolerated - or another appropriate SSRI. - We will continue to follow patient's case, and provide additional recommendations as they are available. We appreciate the opportunity to participate in the care of this patient. Please reach out to our service with any additional questions or updates. Psych History Identifying Data 70-year-old female admitted medically on 03/10/2020 after presenting to the ED with stroke-like symptoms. Pt has had numerous CVAs and several recent presentations/admissions. Psychiatric consultation was requested by our hospitalist service to evaluate the patient for depression, patient at increased risk related to repeated CVAs and change in medical conditions. Chief Complaint "I don't know. My got upset." History of Present Illness Rowena Núñez is a 70-year-old female admitted medically on 03/10/2020 after presenting to the ED with stroke-like symptoms. Pt has had previous CVAs and is diagnosed with numerous other medical conditions including: carotid stenosis, COPD, CHF, HTN, HLD, GERD, CKD, and visual disturbances. Psychiatric consultation was requested by our hospitalist service as patient presented with depressed affect and is at increased risk of depression due to recurrent stroke. This provider did have communication with the patient's assigned case hardener, who stated the is concerned about inability to continue caring for the patient at home and has expressed concern about increased paranoia and visual hallucinations of bugs. Pt is a limited historian, though does initially cooperate with psychiatric assessment. Pt's speech is dysarthric and difficult to understand at times. She reports she is not sure why she is in the hospital, stating "I don't know. My got upset. I woke up and he couldn't understand me." Pt verbalized "I rarely act normal", but when asked to repeat this statement, she laughed and said "I meant I was acting abnormally." Pt believes that this "cleared immediately" and she states she is now feeling better. When asked to provide the timeline of events to this provider, the patient states this episode occurred on "the ...of February...2019" (obviously date in the future) - and patient states she has been in the hospital for "5 days already" (which is also inaccurate). Pt then states she is frustrated as "I spent the night outside. I'm serious. They didn't have any rooms here." Pt was asked where she believes she is, and did not initially answer. She was then given options - and stated she is "at a hotel." Pt states she is wanting to leave and is "waiting for my ride, my ." During this conversation, the patient often responded to questions by saying either "I can't explain it" or "you don't understand." When asked about her mood, the patient laughs and states "better than I should have been". She is unable to explain to this provider what that means. This provider asked the patient if she had been seeing bugs in her home, and she stated "no." Follow-up questions were asked, and patient inappropriately stated "I'll take that into consideration" rather than answering them. This provider continued to ask questions, and patient became increasingly upset - folding her arms and saying "you don't get it, you're not going in the right direction with this at all." Pt stated she would not answer any further questions until her arrived - which he fortunately did at that moment. Pt agreed to continue conversation with , Carrington, present. Pt seemed to grow even more irritable. Unfortunately, no additional valuable information could be obtained from the patient at that time. Pt agreed to allow this provider and Carrington to speak in the hallway, and then attempted to follow us out of the room, saying her "ride is here, so I'm going home." reassured her he was not leaving and that he would be back. shared concern about increased paranoia and irritability, though had difficulty providing clear examples of this. He clearly admits that he is overwhelmed with the level of care the patient requires. He states the patient is sleeping "18 hours a day...that's when she's not wandering around getting into things." He states that she has reported seeing termites on the ceiling and reported seeing bugs on the wall while in the ED yesterday. He states these concerns began after a recent stroke. We reviewed potential medication options, but also concern for prolonged QTc interval. was offered support and reassurance and was informed we would continue to follow with the patient during her stay. He denied other concerns at this time. Past Psychiatric History Previous Psych History: No known prior psychiatric history - patient is a limited historian and unable to provide reliable answers. No evidence of recent psychotropic medication trials based on available external medication history. Past Medication Trials: None known Allergies Allergy/AdvReac Type Severity Reaction Status Date / Time hydrocodone Allergy Intermediate CONFUSION Verified 03/10/20 08:06 ramipril Allergy Intermediate Nausea Verified 03/10/20 08:06 Sulfa (Sulfonamide Allergy Intermediate Nausea Verified 03/10/20 08:06 Antibiotics) Home Medications Home Medications Medication Instructions Recorded Confirmed Type atorvastatin 80 mg PO HS 02/22/18 03/10/20 History multivitamin 1 tab PO QAM 02/22/18 03/10/20 History omega [id number] oil [Fish Oil] 1,000 mg PO QAM 02/22/18 03/10/20 History timolol maleate 1 drp OPL QAM 08/21/18 03/10/20 History acetaminophen [Tylenol Extra 500 mg PO QID PRN 10/10/18 03/10/20 History Strength] furosemide [Lasix] 10 mg PO DAILY 11/14/18 03/10/20 History famotidine 20 mg PO BID 01/23/20 03/10/20 History Vitron-C 1 tab PO DAILY 01/28/20 03/10/20 History aspirin 81 mg PO DAILY 01/28/20 03/10/20 History cholecalciferol (vitamin D3) 50 mcg PO DAILY 01/28/20 03/10/20 History spironolactone 12.5 mg PO DAILY 01/28/20 03/10/20 History amoxicillin 2,000 mg PO ONCE PRN 02/18/20 03/10/20 History clopidogrel [Plavix] 75 mg PO DAILY 02/18/20 03/10/20 History loratadine [Claritin] 10 mg PO DAILY 02/18/20 03/10/20 History pantoprazole [Protonix] 20 mg PO DAILYBB 02/18/20 03/10/20 History levetiracetam 500 mg PO BID 03/10/20 03/10/20 History metoprolol succinate 25 mg PO DAILY 03/10/20 03/10/20 History Family History Denies known family history of mental health conditions. Substance Abuse History Former smoker, quit in 1997. Reports drinking 2-4 glasses of wine a month. Pt denied use of illicit substances. Personal History Living Arrangements: Home (with , has assistance from home health nursing) Employment Status: Retired Marital Status: (Jerrod "Carrington") Patient History Medical History Anemia HX OF ANEMIA Atrial ectopic tachycardia [place]em[place] FOLLOWS WITH DR CONDON - LAST SEEN WEEK OF 6/3 Carotid stenosis S/P LEFT CEA (2012)- FOLLOWS WITH S IN TRIPLETT Chronic diastolic CHF (congestive heart failure) COPD (chronic obstructive pulmonary disease) GERD (gastroesophageal reflux disease) H/O gastric ulcer History of CVA (cerebrovascular accident) Hyperlipidemia Hypertension Prolonged Q-T interval on ECG PVD (peripheral vascular disease) Surgical History H/O exploratory laparotomy 08/25/2018. Done 2/2 perforated gastric ulcer. Flynn 3, Grade 1 view. 7.5 ETT placed. no issues. History of carotid endarterectomy LEFT CEA (2012) History of cataract extraction RIGHT AND LEFT History of hand surgery History of left hip replacement History of tonsillectomy Family History Other COPD (chronic obstructive pulmonary disease) Kidney disease Social History Smoking Status: Former smoker Tobacco Type: Cigarettes Years Smoked: 30; Smoking End Date: 1997; Second Hand Exposure: No; Do You Dip or Chew Tobacco: No; Hx Alcohol Use: Yes Alcohol type: wine Alcohol Intake Frequency: 2-4 x/Month Hx Substance Use: No Preferred Language: Citizen Of [place] Communication Ability: Effective Visual Impairment: No Limitations Director Nicu Required: No Beliefs That Will Affect Care: None marital status: Current Living Situation: Spouse Other Information That Helps Us Care for You: No Feels Safe at Home: Yes Safety Concerns: Feels Safe At This Time Assistive Devices: None Physical Exam Psychiatric: Orientation: alert and oriented to person; + not oriented to place (pt believes that she is in a hotel) and + not oriented to time (states she was admitted on 03/14/20 (future date) and has been here 5 days) Apperance: appropriately dressed, + disheveled and appeared stated age Thin, somewhat frail-appearing female, seated on side of bed - appearing anxious, but in no acute distress. Pt is appropriately dressed in a hospital gown. Hair is unkempt. Hygiene appears adequate. Eye Contact: + fair eye contact Motor Behavior: + psychomotor agitation (somewhat restless, frequent repositioning, trying to stand/walk) Speech: + abnormal rate/rhythm/volume of speech (muffled and garbled speech, intelligible at times) Affect: + anxious affect, + labile affect and + irritable affect Pt is primarily anxious and irritable, though intermittently demonstrates euthymic mood with smiling and laughter Mood: no depressed mood ("Better than I should have been" - unable to explain what this means) Thought Process: + tangential thought process (disorganized) Thought Content: Pt is confused, thoughts are not entirely reality-based. Hallucinations: + visual hallucinations; no auditory hallucinations Patient denies SI Cognition: + recent memory not intact, + attention not intact and + language not intact Insight: + impaired insight Judgement: + impaired judgement Vital Signs (Past 24 Hours): Last Vital Signs Temp 36.8 C 03/11/20 08:03 Pulse 108 H 03/11/20 08:03 Resp 20 03/11/20 08:03 BP 138/107 H 03/11/20 08:03 Pulse Ox 99 03/11/20 08:03 Review of Systems Pt is limited in her participation due to confusion and disorientation. She does not verbalize any physical concerns to this provider. Results & Data (PSY) Medications Administered Acetaminophen (Acetaminophen 500 Mg Tab) 500 mg PO QID PRN PRN Reason: Pain Stop: 04/09/20 16:37 Last Admin: 03/11/20 07:52 Dose: 500 mg Documented by: [id number] Ascorbic Acid (Ascorbic Acid 500 Mg Tab) 250 mg PO DAILY [facility] Stop: 04/10/20 08:59 Last Admin: 03/11/20 07:51 Dose: 250 mg Documented by: [id number] Aspirin (Aspirin 81 Mg Ectab) 81 mg PO QAM [facility] Stop: 04/10/20 08:59 Last Admin: 03/11/20 07:53 Dose: 81 mg Documented by: [id number] Atorvastatin Calcium (Atorvastatin 40 Mg Tab) 80 mg PO HS [facility] Stop: 04/09/20 20:59 Last Admin: 03/10/20 19:48 Dose: 80 mg Documented by: [id number] Clopidogrel Bisulfate (Clopidogrel Bisulfate 75 Mg Tab) 75 mg PO DAILY [facility] Stop: 04/10/20 08:59 Last Admin: 03/11/20 07:52 Dose: 75 mg Documented by: [id number] Famotidine (Famotidine 20 Mg Tab) 20 mg PO BID [facility] Stop: 04/09/20 20:59 Last Admin: 03/11/20 07:54 Dose: 20 mg Documented by: [id number] Admin: 03/10/20 19:47 Dose: 20 mg Documented by: [id number] Ferrous Sulfate (Ferrous Sulfate 325 Mg Tab) 325 mg PO DAILY [facility] Stop: 04/10/20 08:59 Last Admin: 03/11/20 07:53 Dose: 325 mg Documented by: [id number] Fish Oil (Weston-3 (Purified Fish Oil) 1 Gm Cap) 1 gm PO QAM [facility] Stop: 04/10/20 08:59 Last Admin: 03/11/20 07:54 Dose: 1 gm Documented by: [id number] Heparin Sodium (Porcine) (Heparin Sod 5,000 Unit/0.5 Ml Vial) 5,000 units SQ Q8 [facility] Stop: 04/09/20 21:59 Last Admin: 03/11/20 06:25 Dose: Not Given Documented by: [id number] Admin: 03/10/20 20:58 Dose: Not Given Documented by: [id number] Levetiracetam (Levetiracetam 500 Mg Tab) 500 mg PO BID [facility] Stop: 04/09/20 20:59 Last Admin: 03/11/20 07:53 Dose: 500 mg Documented by: [id number] Admin: 03/10/20 19:48 Dose: 500 mg Documented by: [id number] Loratadine (Loratadine 10 Mg Tab) 10 mg PO DAILY [facility] Stop: 04/10/20 08:59 Last Admin: 03/11/20 07:51 Dose: 10 mg Documented by: [id number] Lorazepam (Lorazepam 0.5 Mg Tab) 0.5 mg PO Q8 PRN PRN Reason: Anxiety Stop: 04/09/20 13:16 Last Admin: 03/11/20 00:22 Dose: 0.5 mg Documented by: [id number] Metoprolol Succinate (Metoprolol Succ 25mg Ext Rel Tab) 25 mg PO DAILY [facility] Stop: 04/10/20 08:59 Last Admin: 03/11/20 07:52 Dose: 25 mg Documented by: [id number] Metoprolol Tartrate (Metoprolol Tartrate 1 Mg/Ml Vial) 5 mg IV Q4H PRN PRN Reason: tachycardia Stop: 04/09/20 14:14 Last Admin: 03/11/20 00:21 Dose: 5 mg Documented by: [id number] Multivitamins (Multivitamin Tab) 1 tab PO QAM [facility] Stop: 04/10/20 08:59 Last Admin: 03/11/20 07:53 Dose: 1 tab Documented by: [id number] Pantoprazole Sodium (Pantoprazole 40 Mg Tab) 40 mg PO DAILYBB [facility] Stop: 04/10/20 06:29 Last Admin: 03/11/20 06:25 Dose: Not Given Documented by: [id number] Timolol Maleate (Timolol Maleate 0.5% Op Soln 5 Ml Btl) 1 drops OPL QAM [facility] Stop: 04/10/20 08:59 Last Admin: 03/11/20 07:54 Dose: 1 drops Documented by: [id number] Vitamin D (Cholecalciferol 1,000 Units 25 Mcg Tab) 2,000 units PO DAILY [facility] Stop: 04/10/20 08:59 Last Admin: 03/11/20 07:52 Dose: 2,000 units Documented by: [id number] Coding Level of Care Code 37938 [facility] Intl Hosp Care Lvl 2
--- NOTE | 2020-03-11 10:56 | Electrocardiogram Report ---
Test Reason : Blood Pressure : / mmHG Vent. Rate : 099 BPM Atrial Rate : 099 BPM P-R Int : 152 ms QRS Dur : 084 ms QT Int : 360 ms P-R-T Axes : 052 -07 076 degrees QTc Int : 462 ms Poor data quality, interpretation may be adversely affected Sinus rhythm with frequent Premature atrial complexes and with frequent Premature ventricular comple xes Possible Left atrial enlargement Nonspecific T wave abnormality Abnormal ECG When compared with ECG of 10-MAR-2020 07:36, (unconfirmed) No significant change Confirmed by Ben Sheldon ([id number]) on 03/11/2020 10:56:21 AM Referred By: [email or web address] SELF Confirmed By:Ben Sheldon
--- NOTE | 2020-03-11 15:13 | Neurology Consultation ---
Date of Consultation March 11, 2020 Assessment & Plan (1) Stroke-like symptom: 1. psychiatry- for treatment and management 2. check for infectious etiologies UA is clean 3. vascular r/o for further strokes- continue aspirin 81 mg and plavix 75 mg daily 4. optimize HTN, HLD, LDL <70 5. PT/OT for discharge needs 6. follow up in neurology 4-6 weeks for further work up of dementia 7. MRI brain should be done if consent is given 8. EEG- for further evaluation of possible seizure and if need could do an outpatient 72 hour EEG Present on Admission?: Yes Supervising Physician Co-Signing Physician Notes I have seen and discussed above patient with Dr Ronn Lubin, neurology I have examined this woman and interviewed her , reviewed the history and discussed the case with Layne Davenport PA-C whose note as above. I did see her very briefly when she was last in the hospital in late December and then Dr. Prado assumed her care placed her on Keppra because of possible seizure- like activity and then she was lost to our follow-up She has continued to decline according to her and is not clear when this actually began but I have the impression that this was more of a gradual process starting in the early summer and was punctuated by what was probably a left occipital stroke and December. She has not felt to be a vascular surgical candidate and I would tend to agree and is on aspirin and Plavix in addition to the Keppra and her other agents Today she is clearly hallucinating picking at the air describing objects in her visual anderson bilaterally is vague about her location and has a lot of word finding issues compatible with an aphasia which would be expected in light of what I see on her MRI of the brain (extensive left hemispheric subcortical leukoencephalopathy) She does not really have a lot of motor deficits but is not ideally cooperative with the exam and does not exert a lot of effort I do not see anything that looks like nonconvulsive seizure activity She refused an MRI and may well refuse an EEG but these are studies that I think would be helpful in excluding progressive vascular events, and ongoing subclinical seizure activity Psychiatry has seen her and is recommend placing her on serotonin reuptake inhibitors Her does not feel that this decline correlates with the initiation of Keppra therapy The diagnosis here appears to be that of a vascular based dementia with confusional state but [place] concerned about the history the relates of a relatively rapid progressive decline over several months without much in the way of clear-cut acute events other than the very minor occipital stroke in December and we certainly have nothing on laboratory studies to suggest an underlying toxic or metabolic process that might be producing a delirium A remote possibility would be that of a slow virus superimposed progressive encephalopathy or even a paraneoplastic disorder an MRI scan would certainly help exclude to some degree the former possibility would have to be contrast- enhanced to evaluate the latter Dr. Prado will be reassuming her care and perhaps will have some other thoughts We have ordered an EEG but have not ordered an MRI as she again has refused. Perhaps her may be able to persuade her She is going to prove to be a placement issue as conversation I had with her today indicates that he does not feel he can handle her at home and if this is her behavior in the home environment I tend to agree 100%. patient financial services specialist already involved Ronn Lubin MD History of Present Illness Reason for Consultation: stroke like symptoms Requesting Physician: Tacos Connolly MD Attending Physician: Tacos Connolly MD History of Present Illness Rowena is a 70 year old female with a PMH -left frontal lobe and left occipital lobe CVA, severe cerebrovascular atherosclerosis, artery stenosis, bilateral subclavian stenosis, aortic arch stenosis, chronic diastolic CHF, atrial ectopic tachycardia, history of SVT, cerebral aneurysm, HTN, CKD stage III, right renal atrophy, GERD, osteoporosis. She presented with strokelike symptoms that started the morning 03/10/2020. She has multiple risk factors for recurrent strokes and is currently on dual antiplatlet therapy. During her previous visit she was started on Keppra 500 mg q 12 hours for possible seizure like activity and she has continued on that dosing. there is no family currently in the room and she appears confused but does know she is in the hospital. She is a former 1 ppd smoker, some EtOH use, no other drugs. denies CP, SOB, abdominal pain, N,V. Allergies Allergy/AdvReac Type Severity Reaction Status Date / Time hydrocodone Allergy Intermediate CONFUSION Verified 03/10/20 08:06 ramipril Allergy Intermediate Nausea Verified 03/10/20 08:06 Sulfa (Sulfonamide Allergy Intermediate Nausea Verified 03/10/20 08:06 Antibiotics) Home Medications Home Medications Medication Instructions Recorded Confirmed Type atorvastatin 80 mg PO HS 02/22/18 03/10/20 History multivitamin 1 tab PO QAM 02/22/18 03/10/20 History omega [id number]-fish oil [Fish Oil] 1,000 mg PO QAM 02/22/18 03/10/20 History timolol maleate 1 drp OPL QAM 08/21/18 03/10/20 History acetaminophen [Tylenol Extra 500 mg PO QID PRN 10/10/18 03/10/20 History Strength] furosemide [Lasix] 10 mg PO DAILY 11/14/18 03/10/20 History famotidine 20 mg PO BID 01/23/20 03/10/20 History Vitron-C 1 tab PO DAILY 01/28/20 03/10/20 History aspirin 81 mg PO DAILY 01/28/20 03/10/20 History cholecalciferol (vitamin D3) 50 mcg PO DAILY 01/28/20 03/10/20 History spironolactone 12.5 mg PO DAILY 01/28/20 03/10/20 History amoxicillin 2,000 mg PO ONCE PRN 02/18/20 03/10/20 History clopidogrel [Plavix] 75 mg PO DAILY 02/18/20 03/10/20 History loratadine [Claritin] 10 mg PO DAILY 02/18/20 03/10/20 History pantoprazole [Protonix] 20 mg PO DAILYBB 02/18/20 03/10/20 History levetiracetam 500 mg PO BID 03/10/20 03/10/20 History metoprolol succinate 25 mg PO DAILY 03/10/20 03/10/20 History Patient History Medical History Anemia HX OF ANEMIA Atrial ectopic tachycardia [place] FOLLOWS WITH DR CONDON - LAST SEEN WEEK OF 09/30 Carotid stenosis S/P LEFT CEA (2012)- FOLLOWS WITH S IN [place] Chronic diastolic CHF (congestive heart failure) COPD (chronic obstructive pulmonary disease) GERD (gastroesophageal reflux disease) H/O gastric ulcer History of CVA (cerebrovascular accident) Hyperlipidemia Hypertension Prolonged Q-T interval on ECG PVD (peripheral vascular disease) Surgical History H/O exploratory laparotomy 08/25/2018. Done 2/2 perforated gastric ulcer. Flynn 3, Grade 1 view. 7.5 ETT placed. no issues. History of carotid endarterectomy LEFT CEA (2012) History of cataract extraction RIGHT AND LEFT History of hand surgery History of left hip replacement History of tonsillectomy Family History Other COPD (chronic obstructive pulmonary disease) Kidney disease Social History Smoking Status: Former smoker Tobacco Type: Cigarettes Years Smoked: 30; Smoking End Date: 1997; Second Hand Exposure: No; Do You Dip or Chew Tobacco: No; Hx Alcohol Use: Yes Alcohol type: wine Alcohol Intake Frequency: 2-4 x/Month Hx Substance Use: No Preferred Language: Romanian Communication Ability: Effective Visual Impairment: No Limitations Subpoena Server Required: No marital status: Current Living Situation: Spouse Other Information That Helps Us Care for You: No Feels Safe at Home: Yes Safety Concerns: Feels Safe At This Time Assistive Devices: None Review of Systems Review of Systems: All systems reviewed & are unremarkable except as noted in HPI & below and All systems reviewed & are unremarkable except as noted in Subjective Physical Exam Physical Exam: Physical Exam: Constitutional: appearance under nourished pale, thin Ears, Nose, Mouth and Throat: mucous membranes moist, no injection and skin normal, eyes normal Cardiovascular: normal S-1 and S-2 and regular rate and rhythm Respiratory: clear to auscultation (CTA) Musculoskeletal: no peripheral edema and good distal pulses Skin: no stigmata of neurocutaneous disease noted and normal and intact Eyes: extraocular muscles intact (EOMI) and pupils equal, round and reactive to light (PERRL) NEUROLOGIC EXAMINATION: Mental status: Alert and interactive Oriented to hospital but does not know name of hospital or the town. She unsure why she is here other then saying she fell Oriented to person Speech dysphasic to words and some slurring of speech Cranial Nerves face appear symmetric no facial droop Sensory: intact to light and cool touch Coordination: finger to nose Gait/Stance: Posture shoulders rounded, head forward Strength: Normal - Hand senior private client advisor bilaterally 4+/5, hip flex 4/5 Results & Data ([facility]) Vital Signs (Past 12 Hours) Vital Signs Temp Pulse Pulse Resp BP Pulse Ox 03/11/20 11:59 36.8 C 96 H 22 175/117 H 99 03/11/20 08:03 36.8 C 108 H 20 138/107 H 99 03/11/20 07:37 90 03/11/20 03:50 36.4 C L 69 20 177/106 H 99 Laboratory Results Abnormal lab results 03/10/20 03/11/20 Range/Units 15:02 05:57 Potassium 3.3 L (3.5-5.1) mmol/L BUN/Creatinine Ratio 8.6 L 9.2 L (10-20) TSH 0.129 L (0.300-4.500) uIu/ml Diagnostic Findings CTA head and neck- No significant change from the prior study Stable 5 mm aneurysm of the left supraclinoid internal carotid 50% diameter narrowing of the right supraclinoid internal carotid 40% diameter narrowing of the left supraclinoid internal carotid
[2020-03-11] MEDS ORDERED: METOPROLOL TARTRATE 50 MG TAB PO STA (16:37)
--- NOTE | 2020-03-11 18:21 | Hospitalist Progress Note ---
Date of Service March 11, 2020 Assessment & Plan (1) Stroke-like symptom: In bed with strokelike symptoms with worsening dysarthria as well as difficulty tongue movement Initial CT scan of the head, CTA s were unremarkable and the patient is refusing MRI since admission Appreciate neurology input and recommendation EEG has been ordered Symptoms have resolved We will get PT and OT evaluation, swallowing evaluation (2) History of CVA (cerebrovascular accident): (3) Cerebrovascular insufficiency syndrome: This is a 70-year-old female who has significant past medical history of left frontal lobe and will left occipital lobe CVA, severe cerebrovascular atherosclerosis, innominate artery stenosis, bilateral subclavian stenosis, aortic arch stenosis, chronic diastolic CHF, atrial ectopic tachycardia, history of SVT, cerebral aneurysm, HTN, CKD stage III, right renal atrophy, GERD, osteoporosis, P.O.A.G., who presents to ED secondary to strokelike symptoms starting at 6:15 AM. Significant peripheral arterial disease Pt with multiple cerebral vascular lesions including High-grade stenosis of the right internal carotid artery, subtotal occlusion of the right innominate artery, occlusion of the proximal left subclavian artery, 80% diameter stenosis of the proximal left common carotid artery, 60% stenosis of proximal left vertebral artery, subtotal occlusion of the proximal right brachiocephalic artery. Patient very high risk despite dual antiplatelet therapy for recurrent CVA and cognitive decline. Has had evaluation by vascular surgery during her recent admission in the hospital with similar symptoms She was supposed to have a follow-up with vascular surgery in [place] (4) Depressed affect: Patient with increased fatigue, increased sleeping and anhedonia Given visual changes and recurrent strokes likely component of depression playing a role Consult psychiatry -patient agreeable, as is to discuss further and possible initiation of antidepressant (5) Acute worsening of stage 3 chronic kidney disease: baseline Cr 1.0 bun/cr 12 and 1.32 today hold lasix/aldactone monitor renal fxn avoid nephrotoxic agents (6) Chronic diastolic CHF (congestive heart failure): euvolemic hold lasix/aldactone given mild JULIANN daily weight, strict I and O last echo 01/29/20 - EF 55-60%, grade 1 Diastolic dysfunction, left atrium moderately dilated, mild aortic regurg (7) Carotid stenosis: hx of L CEA as above (8) PVD (peripheral vascular disease): as above (9) Atrial ectopic tachycardia: continue metoprolol when able to tolerate PO add prn lopressor HR > 110 while NPO (10) Hypertension: Pt significantly hypertensive allow permissive HTN pt will need a higher than normal BP given significant cerebral vascular disease to perfuse brain hold lasix/aldactone given JULIANN resume metoprolol when able to tolerate PO We will increase the dose of metoprolol to control blood pressure We need to add another medications on top of the (11) Hyperlipidemia: continue high intensity statin (12) COPD (chronic obstructive pulmonary disease): hx of tobacco abuse no acute exacerbation (13) GERD (gastroesophageal reflux disease): continue famotidine, PPI (14) DVT prophylaxis: SQ Heparin Disposition: admit to tele Follow up: PCP Dr. Garcia upon discharge Admission and Anticipated Discharge Date Admission Date: March 10, 2020 Subjective The patient was seen and examined in medical telemetry unit She has a history of significant peripheral and central arterial disease and presented with recurrent strokelike symptoms Symptoms have resolved and she refuses to go for MRI Denies any significant symptoms Review of Systems Review of Systems: All systems reviewed and are unremarkable except as noted below Neurologic: no tremor(s), no seizure-like activity, no dizziness and no abnormal speech Psychiatric: + anxiety and + confusion Physical Exam Physical Exam: Lying in bed comfortably Constitutional: + thin; no acute distress Eyes: PERRL, conjunctivae normal, anicteric sclerae ENMT: external ear and nose normal, oropharynx normal Neck: trachea midline, no thyromegaly Respiratory: no respiratory distress Auscultation: lungs clear to auscultation bilaterally Cardiovascular: Rate/Rhythm: regular rate and regular rhythm Heart Sounds: no murmur Gastrointestinal (Abdomen): Inspection/Auscultation: abdomen not distended Percussion/Palpation: abdomen soft; abdomen nontender Musculoskeletal: No acute arthritis in any joint Neurologic: Alert, awake and oriented x3. Generally weak, no focal neuro deficit. Lymphatic: no cervical or axillary lymphadenopathy Results & Data Results & Data ([facility]) Vital Signs (Past 12 Hours) Vital Signs Temp Pulse Pulse Resp BP BP Pulse Ox 03/11/20 16:20 181/93 H 03/11/20 15:50 97 H 03/11/20 15:25 36.7 C 94 H 20 175/112 H 99 03/11/20 11:59 36.8 C 96 H 22 175/117 H 99 03/11/20 08:03 36.8 C 108 H 20 138/107 H 99 03/11/20 07:37 90 Laboratory Results BMP 03/11/20 05:57 Sodium 139 Potassium 3.6 Chloride 105 Carbon Dioxide 27 BUN 10 Creatinine 1.07 Glucose 96 Calcium 9.4 Medications Administered Current Inpatient Medications Acetaminophen (Acetaminophen 500 Mg Tab) 500 mg PO QID PRN PRN Reason: Pain Stop: 04/09/20 16:37 Last Admin: 03/11/20 07:52 Dose: 500 mg Documented by: Al Hydrox/Mg Hydrox/Simethicone (Aluminum/Magnesium Susp 30 Ml Udc) 15 ml PO Q4H PRN PRN Reason: Dyspepsia Stop: 04/09/20 12:41 Ascorbic Acid (Ascorbic Acid 500 Mg Tab) 250 mg PO DAILY [facility] Stop: 04/10/20 08:59 Last Admin: 03/11/20 07:51 Dose: 250 mg Documented by: Aspirin (Aspirin 81 Mg Ectab) 81 mg PO QAM [facility] Stop: 04/10/20 08:59 Last Admin: 03/11/20 07:53 Dose: 81 mg Documented by: Atorvastatin Calcium (Atorvastatin 40 Mg Tab) 80 mg PO HS [facility] Stop: 04/09/20 20:59 Last Admin: 03/10/20 19:48 Dose: 80 mg Documented by: Clopidogrel Bisulfate (Clopidogrel Bisulfate 75 Mg Tab) 75 mg PO DAILY [facility] Stop: 04/10/20 08:59 Last Admin: 03/11/20 07:52 Dose: 75 mg Documented by: Famotidine (Famotidine 20 Mg Tab) 20 mg PO BID [facility] Stop: 04/09/20 20:59 Last Admin: 03/11/20 07:54 Dose: 20 mg Documented by: Ferrous Sulfate (Ferrous Sulfate 325 Mg Tab) 325 mg PO DAILY [facility] Stop: 04/10/20 08:59 Last Admin: 03/11/20 07:53 Dose: 325 mg Documented by: Fish Oil ([place]-3 (Purified Fish Oil) 1 Gm Cap) 1 gm PO QAM [facility] Stop: 04/10/20 08:59 Last Admin: 03/11/20 07:54 Dose: 1 gm Documented by: Heparin Sodium (Porcine) (Heparin Sod 5,000 Unit/0.5 Ml Vial) 5,000 units SQ Q8 [facility] Stop: 04/09/20 21:59 Last Admin: 03/11/20 14:03 Dose: Not Given Documented by: Levetiracetam (Levetiracetam 500 Mg Tab) 500 mg PO BID [facility] Stop: 04/09/20 20:59 Last Admin: 03/11/20 07:53 Dose: 500 mg Documented by: Loratadine (Loratadine 10 Mg Tab) 10 mg PO DAILY [facility] Stop: 04/10/20 08:59 Last Admin: 03/11/20 07:51 Dose: 10 mg Documented by: Lorazepam (Lorazepam 0.5 Mg Tab) 0.5 mg PO Q8 PRN PRN Reason: Anxiety Stop: 04/09/20 13:16 Last Admin: 03/11/20 12:24 Dose: 0.5 mg Documented by: Magnesium Hydroxide (Magnesium Hydroxide Susp 30 Ml Udc) 30 ml PO Q12H PRN PRN Reason: Constipation Stop: 04/09/20 12:41 Metoprolol Succinate (Metoprolol Succ 50mg Ext Rel Tab) 50 mg PO DAILY [facility] Stop: 04/11/20 08:59 Metoprolol Tartrate (Metoprolol Tartrate 1 Mg/Ml Vial) 5 mg IV Q4H PRN PRN Reason: tachycardia Stop: 04/09/20 14:14 Last Admin: 03/11/20 00:21 Dose: 5 mg Documented by: Miscellaneous Information (Pharmacist Discharge Med Rec Consult) 1 ea N/A UD PRN PRN Reason: Consult Stop: 04/09/20 12:52 Multivitamins (Multivitamin Tab) 1 tab PO QAM [facility] Stop: 04/10/20 08:59 Last Admin: 03/11/20 07:53 Dose: 1 tab Documented by: Pantoprazole Sodium (Pantoprazole 40 Mg Tab) 40 mg PO DAILYBB [facility] Stop: 04/10/20 06:29 Last Admin: 03/11/20 06:25 Dose: Not Given Documented by: Polyethylene Glycol (Polyethylene (Miralax) 17 Gm Pack) 17 gm PO DAILY PRN PRN Reason: Constipation Stop: 04/09/20 12:41 Timolol Maleate (Timolol Maleate 0.5% Op Soln 5 Ml Btl) 1 drops OPL QAM [facility] Stop: 04/10/20 08:59 Last Admin: 03/11/20 07:54 Dose: 1 drops Documented by: Vitamin D (Cholecalciferol 1,000 Units 25 Mcg Tab) 2,000 units PO DAILY [facility] Stop: 04/10/20 08:59 Last Admin: 03/11/20 07:52 Dose: 2,000 units Documented by:
[2020-03-11] MEDS: ATORVASTATIN 40 MG TAB PO SCH (21:39)
[2020-03-12] MEDS: HEPARIN SOD 5,000 UNIT/0.5 ML VIAL SQ SCH ×3 (06:23→21:23)
[2020-03-12] MEDS: PANTOprazole 40 MG TAB PO SCH (06:23)
[2020-03-12] MEDS: ASPIRIN 81 MG ECTAB PO SCH (08:01)
[2020-03-12] MEDS: OMEGA-3 (PURIFIED FISH OIL) 1 GM CAP PO SCH (08:02)
[2020-03-12] MEDS: FAMOTIDINE 20 MG TAB PO SCH ×2 (08:02→21:23)
[2020-03-12] MEDS: levETIRAcetam 500 MG TAB PO SCH ×2 (08:02→21:22)
[2020-03-12] MEDS: MULTIVITAMIN TAB PO SCH (08:02)
[2020-03-12] MEDS: FERROUS SULFATE 325 MG TAB PO SCH (08:02)
[2020-03-12] MEDS: CLOPIDOGREL BISULFATE 75 MG TAB PO SCH (08:03)
[2020-03-12] MEDS: ASCORBIC ACID 500 MG TAB PO SCH (08:03)
[2020-03-12] MEDS: TIMOLOL MALEATE 0.5% OP SOLN 5 ML BTL OPL SCH (08:03)
[2020-03-12] MEDS: METOPROLOL SUCC 50MG EXT REL TAB PO SCH (08:03)
[2020-03-12] MEDS: CHOLECALCIFEROL 1,000 UNITS 25 MCG TAB PO SCH (08:04)
[2020-03-12 09:45] LABS: Basophils # (auto) 0.01 K/uL (0-0.2); Basophils % (auto) 0.1 %; Eosinophils # (auto) 0.16 K/uL (0-0.5); Eosinophils % (auto) 1.9 %; Hematocrit (blood only) 39.4 % (37-47); Hemoglobin 13.2 g/dL (12.0-16.0); Immature Granulocytes # (auto) 0.02 K/uL (0.00-0.02); Immature Granulocytes % (auto) 0.2 %; Lymphocytes # (auto) 1.68 K/uL (1.2-3.4); Lymphocytes % (auto) 19.5 %; Mean Corpuscular Hemoglobin 33.5 pg (25-34); Mean Corpuscular Hgb Conc 33.5 g/dL (32-36); Mean Platelet Volume 9.8 fL (7.4-10.4); Monocytes % (auto) 5.8 %; Neutrophils # (auto) 6.25 K/uL (1.4-6.5); Neutrophils % (auto) 72.5 %; Platelet Count 271 K/uL (130-400); RDW Coefficient of Variation 11.9 % (11.5-14.5); RDW Standard Deviation 43.8 fL (36.4-46.3); Red Blood Count 3.94 M/uL (4.2-5.4); White Blood Count 8.62 K/uL (4.8-10.8)
[2020-03-12 10:17] LABS: BUN Creatinine Ratio 7.7 (10-20); Calcium 9.5 mg/dl (8.5-10.1); Creatinine Clr Calc Pharmacy 34.8 ml/min; Est GFR (African American) 59.1; Potassium 3.2 mmol/L (3.5-5.1)
[2020-03-12] MEDS: LORATADINE 10 MG TAB PO SCH (10:43)
[2020-03-12] MEDS ORDERED: POTASSIUM CHLORIDE CRTAB 20 MEQ TABCR PO STA (11:39)
[2020-03-12] MEDS: LORazepam 0.5 MG TAB PO PRN (12:16)
--- NOTE | 2020-03-12 13:22 | Hospitalist Progress Note ---
Date of Service March 12, 2020 Assessment & Plan (1) Stroke-like symptom: In bed with strokelike symptoms with worsening dysarthria as well as difficulty tongue movement Initial CT scan of the head, CTA s were unremarkable and the patient is refusing MRI since admission Appreciate neurology input and recommendation EEG has been ordered Symptoms have resolved Appreciate PT evaluation and recommendation of EEG due to diet Still refusing MRI of the brain and EEG has not been done yet She has been on Keppra and without any evidence of seizures EEG can be done later if needed Without any significant residual symptoms or ongoing symptoms of a stroke,MRI will not had any significant findings to change any medication Continue PT and OT evaluation for possible placement (2) History of CVA (cerebrovascular accident): (3) Cerebrovascular insufficiency syndrome: This is a 70-year-old female who has significant past medical history of left frontal lobe and will left occipital lobe CVA, severe cerebrovascular atherosclerosis, innominate artery stenosis, bilateral subclavian stenosis, aortic arch stenosis, chronic diastolic CHF, atrial ectopic tachycardia, history of SVT, cerebral aneurysm, HTN, CKD stage III, right renal atrophy, GERD, osteoporosis, P.O.A.G., who presents to ED secondary to strokelike symptoms starting at 6:15 AM. Significant peripheral arterial disease Pt with multiple cerebral vascular lesions including High-grade stenosis of the right internal carotid artery, subtotal occlusion of the right innominate artery, occlusion of the proximal left subclavian artery, 80% diameter stenosis of the proximal left common carotid artery, 60% stenosis of proximal left vertebral artery, subtotal occlusion of the proximal right brachiocephalic artery. Patient very high risk despite dual antiplatelet therapy for recurrent CVA and cognitive decline. Has had evaluation by vascular surgery during her recent admission in the hospital with similar symptoms She was supposed to have a follow-up with vascular surgery in [place] (4) Depressed affect: Patient with increased fatigue, increased sleeping and anhedonia Given visual changes and recurrent strokes likely component of depression playing a role Consult psychiatry -patient agreeable, as is to discuss further and possible initiation of antidepressant Psychiatric input and recommendation We will start sertraline 25 mg daily with titration as tolerated (5) Acute worsening of stage 3 chronic kidney disease: baseline Cr 1.0 bun/cr 12 and 1.32 today hold lasix/aldactone monitor renal fxn avoid nephrotoxic agents (6) Chronic diastolic CHF (congestive heart failure): euvolemic hold lasix/aldactone given mild JULIANN daily weight, strict I and O last echo 01/29/20 - EF 55-60%, grade 1 Diastolic dysfunction, left atrium moderately dilated, mild aortic regurg (7) Carotid stenosis: hx of L CEA as above (8) PVD (peripheral vascular disease): as above (9) Atrial ectopic tachycardia: continue metoprolol when able to tolerate PO add prn lopressor HR > 110 while NPO (10) Hypertension: Pt significantly hypertensive allow permissive HTN pt will need a higher than normal BP given significant cerebral vascular disease to perfuse brain hold lasix/aldactone given JULIANN resume metoprolol when able to tolerate PO We will increase the dose of metoprolol to control blood pressure We need to add another medications on top of the (11) Hyperlipidemia: continue high intensity statin (12) COPD (chronic obstructive pulmonary disease): hx of tobacco abuse no acute exacerbation (13) GERD (gastroesophageal reflux disease): continue famotidine, PPI (14) DVT prophylaxis: SQ Heparin Disposition: admit to tele Follow up: PCP Dr. Garcia upon discharge Admission and Anticipated Discharge Date Admission Date: March 10, 2020 Subjective The patient was seen and examined in medical telemetry unit She has a history of significant peripheral and central arterial disease and presented with recurrent strokelike symptoms Symptoms have resolved and she refuses to go for MRI Denies any significant symptoms 03/12/2020 The patient was seen and examined in medical telemetry unit in presence of the She has had some issues with confusion and hallucination She was evaluated by psychiatrist Denies any symptoms as of this morning Review of Systems Review of Systems: All systems reviewed and are unremarkable except as noted below Psychiatric: + anxiety and + confusion Physical Exam Physical Exam: Sitting on a chair without any acute symptoms Constitutional: + thin; no acute distress Eyes: PERRL, conjunctivae normal, anicteric sclerae ENMT: external ear and nose normal, oropharynx normal Neck: trachea midline, no thyromegaly Respiratory: no respiratory distress Auscultation: lungs clear to auscultation bilaterally Cardiovascular: Rate/Rhythm: regular rate and regular rhythm Heart Sounds: no murmur Gastrointestinal (Abdomen): Inspection/Auscultation: abdomen not distended Percussion/Palpation: abdomen soft; abdomen nontender Musculoskeletal: Denies any acute arthritis involving any joint Neurologic: Alert, awake and oriented x3. Been really weak but no focal neuro deficit Lymphatic: no cervical or axillary lymphadenopathy Results & Data Results & Data ([facility]) Vital Signs (Past 12 Hours) Vital Signs Temp Pulse Pulse Resp BP BP Pulse Ox 03/12/20 11:37 36.3 C L 81 16 157/95 H 98 03/12/20 07:39 36.4 C L 90 18 157/84 H 97 03/12/20 07:12 72 03/12/20 04:00 36.4 C L 88 18 173/96 H 99 03/12/20 01:58 65 Laboratory Results Short CBC 03/12/20 Range/Units 09:27 WBC 8.62 (4.8-10.8) K/uL Hgb 13.2 (12.0-16.0) g/dL Hct 39.4 (37-47) % Plt Count 271 (130-400) K/uL BMP 03/12/20 09:27 Sodium 137 Potassium 3.2 L Chloride 105 Carbon Dioxide 28 BUN 8 Creatinine 1.09 Glucose 131 H Calcium 9.5 Medications Administered Current Inpatient Medications Acetaminophen (Acetaminophen 500 Mg Tab) 500 mg PO QID PRN PRN Reason: Pain Stop: 04/09/20 16:37 Last Admin: 03/11/20 07:52 Dose: 500 mg Documented by: Al Hydrox/Mg Hydrox/Simethicone (Aluminum/Magnesium Susp 30 Ml Udc) 15 ml PO Q4H PRN PRN Reason: Dyspepsia Stop: 04/09/20 12:41 Ascorbic Acid (Ascorbic Acid 500 Mg Tab) 250 mg PO DAILY [facility] Stop: 04/10/20 08:59 Last Admin: 03/12/20 08:03 Dose: 250 mg Documented by: Aspirin (Aspirin 81 Mg Ectab) [facility] Stop: 04/10/20 08:59 Last Admin: 03/12/20 08:01 Dose: 81 mg Documented by: Atorvastatin Calcium (Atorvastatin 40 Mg Tab) 80 mg PO HS [facility] Stop: 04/09/20 20:59 Last Admin: 03/11/20 21:39 Dose: 80 mg Documented by: Clopidogrel Bisulfate (Clopidogrel Bisulfate 75 Mg Tab) 75 mg PO DAILY [facility] Stop: 04/10/20 08:59 Last Admin: 03/12/20 08:03 Dose: 75 mg Documented by: Famotidine (Famotidine 20 Mg Tab) 20 mg PO BID [facility] Stop: 04/09/20 20:59 Last Admin: 03/12/20 08:02 Dose: 20 mg Documented by: Ferrous Sulfate (Ferrous Sulfate 325 Mg Tab) 325 mg PO DAILY [facility] Stop: 04/10/20 08:59 Last Admin: 03/12/20 08:02 Dose: 325 mg Documented by: Fish Oil ([place]-3 (Purified Fish Oil) 1 Gm Cap) 1 gm PO QAM [facility] Stop: 04/10/20 08:59 Last Admin: 03/12/20 08:02 Dose: 1 gm Documented by: Heparin Sodium (Porcine) (Heparin Sod 5,000 Unit/0.5 Ml Vial) 5,000 units SQ Q8 [facility] Stop: 04/09/20 21:59 Last Admin: 03/12/20 06:23 Dose: 5,000 units Documented by: Levetiracetam (Levetiracetam 500 Mg Tab) 500 mg PO BID [facility] Stop: 04/09/20 20:59 Last Admin: 03/12/20 08:02 Dose: 500 mg Documented by: Loratadine (Loratadine 10 Mg Tab) 10 mg PO DAILY [facility] Stop: 04/10/20 08:59 Last Admin: 03/12/20 10:43 Dose: 10 mg Documented by: Lorazepam (Lorazepam 0.5 Mg Tab) 0.5 mg PO Q8 PRN PRN Reason: Anxiety Stop: 04/09/20 13:16 Last Admin: 03/12/20 12:16 Dose: 0.5 mg Documented by: Magnesium Hydroxide (Magnesium Hydroxide Susp 30 Ml Udc) 30 ml PO Q12H PRN PRN Reason: Constipation Stop: 04/09/20 12:41 Metoprolol Succinate (Metoprolol Succ 50mg Ext Rel Tab) 50 mg PO DAILY [facility] Stop: 04/11/20 08:59 Last Admin: 03/12/20 08:03 Dose: 50 mg Documented by: Metoprolol Tartrate (Metoprolol Tartrate 1 Mg/Ml Vial) 5 mg IV Q4H PRN PRN Reason: tachycardia Stop: 04/09/20 14:14 Last Admin: 03/11/20 00:21 Dose: 5 mg Documented by: Miscellaneous Information (Pharmacist Discharge Med Rec Consult) 1 ea N/A UD PRN PRN Reason: Consult Stop: 04/09/20 12:52 Multivitamins (Multivitamin Tab) 1 tab PO QAM [facility] Stop: 04/10/20 08:59 Last Admin: 03/12/20 08:02 Dose: 1 tab Documented by: Pantoprazole Sodium (Pantoprazole 40 Mg Tab) 40 mg PO DAILYBB [facility] Stop: 04/10/20 06:29 Last Admin: 03/12/20 06:23 Dose: 40 mg Documented by: Polyethylene Glycol (Polyethylene (Miralax) 17 Gm Pack) 17 gm PO DAILY PRN PRN Reason: Constipation Stop: 04/09/20 12:41 Timolol Maleate (Timolol Maleate 0.5% Op Soln 5 Ml Btl) 1 drops [facility] Stop: 04/10/20 08:59 Last Admin: 03/12/20 08:03 Dose: 1 drops Documented by: Vitamin D (Cholecalciferol 1,000 Units 25 Mcg Tab) 2,000 units PO DAILY [facility] Stop: 04/10/20 08:59 Last Admin: 03/12/20 08:04 Dose: 2,000 units Documented by:
--- NOTE | 2020-03-12 13:33 | Magnetic Resonance Report ---
MRI OF THE BRAIN WITHOUT CONTRAST CLINICAL HISTORY: Strokelike symptoms COMPARISON STUDY: Noncontrast head CT dated 03/10/2020, MRI the brain dated 01/29/2020 FINDINGS: Sagittal axial and coronal images were acquired. No intra or extra-axial mass lesions are visualized There are new small foci of restricted water diffusion involving the deep left frontal white matter. There is a tiny focus of restricted water diffusion within the left frontal cortex. An equivocal punc young focus of restricted water diffusion within the right frontal cortex is likely artifactual. There is decreased conspicuity of the previously identified restricted water diffusion within the left occ ipital lobe. There is no evidence of ventricular dilatation. Proton density T2-weighted and FLAIR images reveal scattered foci of increased T2 signal within the w thai matter, likely on a small vessel basis. In addition there are foci of increased FLAIR and T2 sig nal consistent with areas of prior infarction. There is an old tiny lacunar infarct within the left c entral patrick. There are no abnormal flow voids. IMPRESSION: 1. Interval development of new small foci of restricted water diffusion within the left frontal lobe consistent with acute/subacute infarcts ACT 112: Negative or not required by law. Electronically signed by: Jessee Harris M.D. 03/12/2020 1:32 PM
--- NOTE | 2020-03-12 13:58 | Neurology Progress Note ---
Date of Service March 12, 2020 Assessment & Plan (1) Stroke-like symptom: 1. psychiatry- for treatment and management 2. check for infectious etiologies UA is clean 3. continue aspirin 81 mg and plavix 75 mg daily 4. optimize HTN, HLD, LDL <70 5. PT/OT for discharge needs- looking for appropriate placement 6. MRI brain- new small left temporal lobe infarct 7. EEG- no seizure focus 8. fall precautions Admission and Anticipated Discharge Date Admission Date: March 10, 2020 Supervising Physician Co-Signing Physician Notes Patient was seen and examined. She is sitting upright in bed. Well known to have severe extracranial atherosclerosis in multiple vessel and seen by vascular surgery in the past and discussed left subclavian surgery. She has bilateral carotid disease and prior left MCA and [employer] stroke. She is on dual antiplatelet therapy. On examine today patient is disoriented to age and year and place. She is following simple commands. She can repeat. Mild dysarthria. Moving both arms well. Symmetric strength with shoulder abduction. Has trouble with finger to nose and VF. She has mild to moderate expressive aphasia. I reviewed her MRI and it does show a new acute left MCA infarct. declined vascular surgery in the past. Recommend to continue current DAP. Blood pressure goal 120-130's SBP. Continue home Keppra. Avoid hypotension. Pending placement. Please contact me with any additional questions or concernns. Follow up with Neurology in 8 weeks. Billie Guaman is a 70 year old female with a PMH -left frontal lobe and left occipital lobe CVA, severe cerebrovascular atherosclerosis, artery stenosis, bilateral subclavian stenosis, aortic arch stenosis, chronic diastolic CHF, atrial ectopic tachycardia, history of SVT, cerebral aneurysm, HTN, CKD stage III, right renal atrophy, GERD, osteoporosis. She presented with strokelike symptoms that started the morning 03/10/2020. She has multiple risk factors for recurrent strokes and is currently on dual antiplatlet therapy. During her previous visit she was started on Keppra 500 mg q 12 hours for possible seizure like activity and she has continued on that dosing. She is a former 1 ppd smoker, some EtOH use, no other drugs. There is no family currently in the room. She appears much more awake and interactive. She consented to the MRI Brain. denies CP, SOB, abdominal pain, N,V. Review of Systems Review of Systems: All systems reviewed & are unremarkable except as noted in HPI & below and All systems reviewed & are unremarkable except as noted in Subjective Physical Exam Physical Exam: Physical Exam: Constitutional: appearance under nourished pale, thin, more alert today Ears, Nose, Mouth and Throat: mucous membranes moist, no injection and skin normal, eyes normal Respiratory: normal respiration effort Musculoskeletal: no peripheral edema and good distal pulses Skin: no stigmata of neurocutaneous disease noted and normal and intact Eyes: extraocular muscles intact (EOMI) and pupils equal, round and reactive to light (PERRL) NEUROLOGIC EXAMINATION: Mental status: Alert and interactive Oriented to hospital and knows she is in [place] Oriented to person Speech dysphasic to some words and some slurring of speech Cranial Nerves face appear symmetric no facial droop Coordination: finger to nose Gait/Stance: Posture sitting up in bedside chair and eating lunch without assistance Results & Data ([facility]) Vital Signs (Past 12 Hours) Vital Signs Temp Pulse Pulse Resp BP BP Pulse Ox 03/12/20 11:37 36.3 C L 81 16 157/95 H 98 03/12/20 07:39 36.4 C L 90 18 157/84 H 97 03/12/20 07:12 72 03/12/20 04:00 36.4 C L 88 18 173/96 H 99 03/12/20 01:58 65 Laboratory Results Abnormal lab results 03/12/20 03/12/20 Range/Units 09:27 09:27 RBC 3.94 L (4.2-5.4) M/uL Potassium 3.2 L (3.5-5.1) mmol/L BUN/Creatinine Ratio 7.7 L (10-20) Glucose 131 H (70-99) mg/dl Diagnostic Findings MRI brain-interval development of new small foci of restricted water diffusion within the left frontal lobe consistent with acute/subacute infarcts EEG-This is an abnormal routine EEG due to 1. Focal slowing in the left temporal head region suggestive of underlying structural abnormality, 2. Generalized background slowing suggestive of non specific encephalopathy. Excessive beta activity is a normal variant and can be secondary to sedative medications (ie benzodiazepines). No epileptiform discharges are recorded.
--- NOTE | 2020-03-12 14:01 | Electroencephalogram ---
EEG Procedure Note Date of Service March 12, 2020 Start / End Times Start Time: 07:14 End Time: 07:34 Referring Physician Layne Davenport PA-C History A 70 year old woman with prior stroke admitted with confusion. EEG performed for evaluation of epileptiform activity. Home Medication List Home Medications Medication Instructions Recorded Confirmed Type atorvastatin 80 mg PO HS 02/22/18 03/10/20 History multivitamin 1 tab PO QAM 02/22/18 03/10/20 History omega 8-[id number]-rgz-fish oil [Fish Oil] 1,000 mg PO QAM 02/22/18 03/10/20 History timolol maleate 1 drp OPL QAM 08/21/18 03/10/20 History acetaminophen [Tylenol Extra 500 mg PO QID PRN 10/10/18 03/10/20 History Strength] furosemide [Lasix] 10 mg PO DAILY 11/14/18 03/10/20 History famotidine 20 mg PO BID 01/23/20 03/10/20 History Vitron-C 1 tab PO DAILY 01/28/20 03/10/20 History aspirin 81 mg PO DAILY 01/28/20 03/10/20 History cholecalciferol (vitamin D3) 50 mcg PO DAILY 01/28/20 03/10/20 History spironolactone 12.5 mg PO DAILY 01/28/20 03/10/20 History amoxicillin 2,000 mg PO ONCE PRN 02/18/20 03/10/20 History clopidogrel [Plavix] 75 mg PO DAILY 02/18/20 03/10/20 History loratadine [Claritin] 10 mg PO DAILY 02/18/20 03/10/20 History pantoprazole [Protonix] 20 mg PO DAILYBB 02/18/20 03/10/20 History levetiracetam 500 mg PO BID 03/10/20 03/10/20 History metoprolol succinate 25 mg PO DAILY 03/10/20 03/10/20 History Inpatient Medication List Acetaminophen (Acetaminophen 500 Mg Tab) 500 mg PO QID PRN PRN Reason: Pain Stop: 04/09/20 16:37 Last Admin: 03/11/20 07:52 Dose: 500 mg Documented by: [id number] Ascorbic Acid (Ascorbic Acid 500 Mg Tab) 250 mg PO DAILY [facility] Stop: 04/10/20 08:59 Last Admin: 03/12/20 08:03 Dose: 250 mg Documented by: [id number] Admin: 03/11/20 07:51 Dose: 250 mg Documented by: [id number] Aspirin (Aspirin 81 Mg Ectab) 81 mg PO QAM [facility] Stop: 04/10/20 08:59 Last Admin: 03/12/20 08:01 Dose: 81 mg Documented by: [id number] Admin: 03/11/20 07:53 Dose: 81 mg Documented by: [id number] Atorvastatin Calcium (Atorvastatin 40 Mg Tab) 80 mg PO HS [facility] Stop: 04/09/20 20:59 Last Admin: 03/11/20 21:39 Dose: 80 mg Documented by: [id number] Admin: 03/10/20 19:48 Dose: 80 mg Documented by: [id number] Clopidogrel Bisulfate (Clopidogrel Bisulfate 75 Mg Tab) 75 mg PO DAILY [facility] Stop: 04/10/20 08:59 Last Admin: 03/12/20 08:03 Dose: 75 mg Documented by: [id number] Admin: 03/11/20 07:52 Dose: 75 mg Documented by: [id number] Famotidine (Famotidine 20 Mg Tab) 20 mg PO BID [facility] Stop: 04/09/20 20:59 Last Admin: 03/12/20 08:02 Dose: 20 mg Documented by: [id number] Admin: 03/11/20 21:38 Dose: 20 mg Documented by: [id number] Admin: 03/11/20 07:54 Dose: 20 mg Documented by: [id number] Admin: 03/10/20 19:47 Dose: 20 mg Documented by: [id number] Ferrous Sulfate (Ferrous Sulfate 325 Mg Tab) 325 mg PO DAILY [facility] Stop: 04/10/20 08:59 Last Admin: 03/12/20 08:02 Dose: 325 mg Documented by: [id number] Admin: 03/11/20 07:53 Dose: 325 mg Documented by: [id number] Fish Oil ([place]-3 (Purified Fish Oil) 1 Gm Cap) 1 gm PO QAM [facility] Stop: 04/10/20 08:59 Last Admin: 03/12/20 08:02 Dose: 1 gm Documented by: [id number] Admin: 03/11/20 07:54 Dose: 1 gm Documented by: [id number] Heparin Sodium (Porcine) (Heparin Sod 5,000 Unit/0.5 Ml Vial) 5,000 units SQ Q8 [facility] Stop: 04/09/20 21:59 Last Admin: 03/12/20 06:23 Dose: 5,000 units Documented by: [id number] Admin: 03/11/20 21:39 Dose: 5,000 units Documented by: [id number] Admin: 03/11/20 14:03 Dose: Not Given Documented by: [id number] Admin: 03/11/20 06:25 Dose: Not Given Documented by: [id number] Admin: 03/10/20 20:58 Dose: Not Given Documented by: [id number] Levetiracetam (Levetiracetam 500 Mg Tab) 500 mg PO BID [facility] Stop: 04/09/20 20:59 Last Admin: 03/12/20 08:02 Dose: 500 mg Documented by: [id number] Admin: 03/11/20 21:39 Dose: 500 mg Documented by: [id number] Admin: 03/11/20 07:53 Dose: 500 mg Documented by: [id number] Admin: 03/10/20 19:48 Dose: 500 mg Documented by: [id number] Loratadine (Loratadine 10 Mg Tab) 10 mg PO DAILY [facility] Stop: 04/10/20 08:59 Last Admin: 03/12/20 10:43 Dose: 10 mg Documented by: [id number] Admin: 03/11/20 07:51 Dose: 10 mg Documented by: [id number] Lorazepam (Lorazepam 0.5 Mg Tab) 0.5 mg PO Q8 PRN PRN Reason: Anxiety Stop: 04/09/20 13:16 Last Admin: 03/12/20 12:16 Dose: 0.5 mg Documented by: [id number] Admin: 03/11/20 12:24 Dose: 0.5 mg Documented by: [id number] Admin: 03/11/20 00:22 Dose: 0.5 mg Documented by: [id number] Metoprolol Succinate (Metoprolol Succ 50mg Ext Rel Tab) 50 mg PO DAILY [facility] Stop: 04/11/20 08:59 Last Admin: 03/12/20 08:03 Dose: 50 mg Documented by: [id number] Metoprolol Tartrate (Metoprolol Tartrate 1 Mg/Ml Vial) 5 mg IV Q4H PRN PRN Reason: tachycardia Stop: 04/09/20 14:14 Last Admin: 03/11/20 00:21 Dose: 5 mg Documented by: [id number] Multivitamins (Multivitamin Tab) 1 tab PO QAM [facility] Stop: 04/10/20 08:59 Last Admin: 03/12/20 08:02 Dose: 1 tab Documented by: [id number] Admin: 03/11/20 07:53 Dose: 1 tab Documented by: [id number] Pantoprazole Sodium (Pantoprazole 40 Mg Tab) 40 mg PO DAILYBB [facility] Stop: 04/10/20 06:29 Last Admin: 03/12/20 06:23 Dose: 40 mg Documented by: [id number] Admin: 03/11/20 06:25 Dose: Not Given Documented by: [id number] Timolol Maleate (Timolol Maleate 0.5% Op Soln 5 Ml Btl) 1 drops OPL QAM [facility] Stop: 04/10/20 08:59 Last Admin: 03/12/20 08:03 Dose: 1 drops Documented by: [id number] Admin: 03/11/20 07:54 Dose: 1 drops Documented by: [id number] Vitamin D (Cholecalciferol 1,000 Units 25 Mcg Tab) 2,000 units PO DAILY [facility] Stop: 04/10/20 08:59 Last Admin: 03/12/20 08:04 Dose: 2,000 units Documented by: [id number] Admin: 03/11/20 07:52 Dose: 2,000 units Documented by: [id number] Discontinued Medications Aspirin (Aspirin 81 Mg Ectab) 81 mg PO NOW STA Stop: 03/10/20 12:51 Last Admin: 03/10/20 13:25 Dose: Not Given Documented by: [id number] Aspirin (Aspirin 81 Mg Chew) Confirm Administered Dose 81 mg .ROUTE .STK-MED ONE Stop: 03/10/20 12:55 Last Admin: 03/10/20 13:04 Dose: Not Given Documented by: [id number] Aspirin (Aspirin 300 Mg Supp) 300 mg SC ONE ONE Stop: 03/10/20 13:26 Last Admin: 03/10/20 13:45 Dose: Not Given Documented by: [id number] Clopidogrel Bisulfate (Clopidogrel Bisulfate 75 Mg Tab) 75 mg PO NOW ONE Stop: 03/10/20 13:31 Last Admin: 03/10/20 13:25 Dose: Not Given Documented by: [id number] Clopidogrel Bisulfate (Clopidogrel Bisulfate 75 Mg Tab) Confirm Administered Dose 75 mg .ROUTE .STK-MED ONE Stop: 03/10/20 12:57 Last Admin: 03/10/20 13:04 Dose: Not Given Documented by: [id number] Sodium Chloride (Nss 1000ml) 1,000 mls @ 999 mls/hr IV .Q1H1M ONE Stop: 03/10/20 09:20 Last Infusion: 03/10/20 10:35 Dose: 0 mls/hr Documented by: [id number] Admin: 03/10/20 08:58 Dose: 999 mls/hr Documented by: [id number] Sodium Chloride (Nss) 500 mls @ 999 mls/hr IV .Q31M ONE Stop: 03/10/20 11:55 Last Infusion: 03/10/20 14:27 Dose: 0 mls/hr Documented by: [id number] Admin: 03/10/20 12:00 Dose: 999 mls/hr Documented by: [id number] Potassium Chloride (K Mookie / Wtr) 10 meq in 100 mls @ 100 mls/hr IV Q1H [facility] Stop: 03/10/20 13:29 Last Infusion: 03/10/20 14:27 Dose: 0 mls/hr Documented by: [id number] Admin: 03/10/20 13:07 Dose: 100 mls/hr Documented by: [id number] Infusion: 03/10/20 13:07 Dose: 0 mls/hr Documented by: [id number] Admin: 03/10/20 12:00 Dose: 100 mls/hr Documented by: [id number] Potassium Chloride 20 meq/ (Sodium Chloride) 1,010 mls @ 100 mls/hr IV .Q10H6M [facility] Stop: 03/10/20 23:05 Last Infusion: 03/11/20 01:18 Dose: 0 mls/hr Documented by: [id number] Admin: 03/10/20 14:46 Dose: 100 mls/hr Documented by: [id number] Ioversol (Optiray 320 125ml) 120 ml IV ONCE ONE Stop: 03/10/20 11:23 Last Admin: 03/10/20 11:22 Dose: 120 ml Documented by: [id number] Metoprolol Succinate (Metoprolol Succ 25mg Ext Rel Tab) 25 mg PO DAILY [facility] Stop: 04/10/20 08:59 Last Admin: 03/11/20 07:52 Dose: 25 mg Documented by: [id number] Metoprolol Tartrate (Metoprolol Tartrate 1 Mg/Ml Vial) 2.5 mg IV NOW STA Stop: 03/11/20 05:06 Last Admin: 03/11/20 05:43 Dose: Not Given Documented by: [id number] Metoprolol Tartrate (Metoprolol Tartrate 50 Mg Tab) 50 mg PO NOW STA Stop: 03/11/20 16:38 Last Admin: 03/11/20 17:10 Dose: 50 mg Documented by: [id number] Potassium Chloride (Potassium Chloride Crtab 20 Meq Tabcr) 40 meq PO NOW STA Stop: 03/12/20 11:40 Last Admin: 03/12/20 13:33 Dose: 40 meq Documented by: [id number] Description This is a 21 electrode EEG with a single channel dedicated to limited EKG. The electrodes were placed in accordance with the International 10-20 system. REPORT: At the onset of the EEG the patient is in an altered mental state. The background is asymmetric with continuous suppression noted in the left temporal head region. The posterior dominant rhythm is not well seen. The background predominantly consist of theta-delta activity with superimposed faster frequencies. No stage II sleep transient are recorded. Photic stimulation does not induce any additional abnormalities. IMPRESSION: This is an abnormal routine EEG due to 1. Focal slowing in the left temporal head region suggestive of underlying structural abnormality, 2. Generalized background slowing suggestive of non specific encephalopathy. Excessive beta activity is a normal variant and can be secondary to sedative medications (ie benzodiazepines). No epileptiform discharges are recorded.
[2020-03-12] MEDS: SERTRALINE HCL 50 MG TABLET PO SCH (14:16)
[2020-03-12] MEDS: ATORVASTATIN 40 MG TAB PO SCH (21:22)
[2020-03-13] MEDS: HEPARIN SOD 5,000 UNIT/0.5 ML VIAL SQ SCH ×2 (05:47→13:11)
[2020-03-13] MEDS: PANTOprazole 40 MG TAB PO SCH (05:47)
[2020-03-13 06:52] LABS: BUN Creatinine Ratio 7.8 (10-20); Calcium 8.8 mg/dl (8.5-10.1); Creatinine Clr Calc Pharmacy 28.3 ml/min; Est GFR (African American) 47.8; Est GFR (Non-African American) 41.2; Potassium 3.8 mmol/L (3.5-5.1)
[2020-03-13] MEDS: ASPIRIN 81 MG ECTAB PO SCH (08:07)
[2020-03-13] MEDS: SERTRALINE HCL 50 MG TABLET PO SCH (08:07)
[2020-03-13] MEDS: OMEGA-3 (PURIFIED FISH OIL) 1 GM CAP PO SCH (08:07)
[2020-03-13] MEDS: CHOLECALCIFEROL 1,000 UNITS 25 MCG TAB PO SCH (08:07)
[2020-03-13] MEDS: LORATADINE 10 MG TAB PO SCH (08:07)
[2020-03-13] MEDS: FERROUS SULFATE 325 MG TAB PO SCH (08:07)
[2020-03-13] MEDS: FAMOTIDINE 20 MG TAB PO SCH ×2 (08:07→20:14)
[2020-03-13] MEDS: MULTIVITAMIN TAB PO SCH (08:07)
[2020-03-13] MEDS: CLOPIDOGREL BISULFATE 75 MG TAB PO SCH (08:07)
[2020-03-13] MEDS: METOPROLOL SUCC 50MG EXT REL TAB PO SCH (08:07)
[2020-03-13] MEDS: TIMOLOL MALEATE 0.5% OP SOLN 5 ML BTL OPL SCH (08:08)
[2020-03-13] MEDS: ASCORBIC ACID 500 MG TAB PO SCH (08:08)
[2020-03-13] MEDS: levETIRAcetam 500 MG TAB PO SCH (08:08)
--- NOTE | 2020-03-13 14:45 | Hospitalist Progress Note ---
Date of Service March 13, 2020 Assessment & Plan (1) Stroke: Mild foci of restricted water diffusion within the left frontal lobe consistent with acute/subacute infarcts Vented with strokelike symptoms as below We will continue current medications Nosebleed Minimal nosebleed with spontaneous resolution happened to be this morning Advised to avoid any injury We will put some Vaseline locally (2) Stroke-like symptom: In bed with strokelike symptoms with worsening dysarthria as well as difficulty tongue movement Initial CT scan of the head, CTA s were unremarkable and the patient is refusing MRI since admission Appreciate neurology input and recommendation EEG has been ordered Symptoms have resolved Appreciate PT evaluation and recommendation She has been on Keppra and without any evidence of seizures EEG can be done later if needed MRI did show a small left frontal infarct as noted in the imaging She does not have any focal neurological deficit on examination (3) History of CVA (cerebrovascular accident): (4) Cerebrovascular insufficiency syndrome: This is a 70-year-old female who has significant past medical history of left frontal lobe and will left occipital lobe CVA, severe cerebrovascular atherosclerosis, innominate artery stenosis, bilateral subclavian stenosis, aortic arch stenosis, chronic diastolic CHF, atrial ectopic tachycardia, history of SVT, cerebral aneurysm, HTN, CKD stage III, right renal atrophy, GERD, osteoporosis, P.O.A.G., who presents to ED secondary to strokelike symptoms starting at 6:15 AM. Significant peripheral arterial disease Pt with multiple cerebral vascular lesions including High-grade stenosis of the right internal carotid artery, subtotal occlusion of the right innominate artery, occlusion of the proximal left subclavian artery, 80% diameter stenosis of the proximal left common carotid artery, 60% stenosis of proximal left vertebral artery, subtotal occlusion of the proximal right brachiocephalic artery. Patient very high risk despite dual antiplatelet therapy for recurrent CVA and cognitive decline. Has had evaluation by vascular surgery during her recent admission in the hospital with similar symptoms She was supposed to have a follow-up with vascular surgery in [place] (5) Depressed affect: Patient with increased fatigue, increased sleeping and anhedonia Given visual changes and recurrent strokes likely component of depression playing a role Consult psychiatry -patient agreeable, as is to discuss further and possible initiation of antidepressant Psychiatric input and recommendation We will start sertraline 25 mg daily with titration as tolerated (6) Acute worsening of stage 3 chronic kidney disease: baseline Cr 1.0 bun/cr 12 and 1.32 today hold lasix/aldactone monitor renal fxn avoid nephrotoxic agents (7) Chronic diastolic CHF (congestive heart failure): euvolemic hold lasix/aldactone given mild JULIANN daily weight, strict I and O last echo 01/29/20 - EF 55-60%, grade 1 Diastolic dysfunction, left atrium moderately dilated, mild aortic regurg (8) Carotid stenosis: hx of L CEA as above (9) PVD (peripheral vascular disease): as above (10) Atrial ectopic tachycardia: continue metoprolol when able to tolerate PO add prn lopressor HR > 110 while NPO (11) Hypertension: Pt significantly hypertensive allow permissive HTN pt will need a higher than normal BP given significant cerebral vascular disease to perfuse brain hold lasix/aldactone given JULIANN resume metoprolol when able to tolerate PO We will increase the dose of metoprolol to control blood pressure We need to add another medications on top of the (12) Hyperlipidemia: continue high intensity statin (13) COPD (chronic obstructive pulmonary disease): hx of tobacco abuse no acute exacerbation (14) GERD (gastroesophageal reflux disease): continue famotidine, PPI (15) DVT prophylaxis: SQ Heparin Disposition: admit to tele Follow up: PCP Dr. Garcia upon discharge Admission and Anticipated Discharge Date Admission Date: March 10, 2020 Subjective The patient was seen and examined in medical telemetry unit She has a history of significant peripheral and central arterial disease and presented with recurrent strokelike symptoms Symptoms have resolved and she refuses to go for MRI Denies any significant symptoms 03/12/2020 The patient was seen and examined in medical telemetry unit in presence of the She has had some issues with confusion and hallucination She was evaluated by psychiatrist Denies any symptoms as of this morning 03/13/2020 The patient was seen and examined in medical telemetry unit She remains stable with minimal dysarthria No more hallucination but she is looking depressed No more neurological symptoms Review of Systems Review of Systems: All systems reviewed and are unremarkable except as noted below Psychiatric: + anxiety and + confusion Physical Exam Physical Exam: Lying in bed comfortably Constitutional: + thin; no acute distress Eyes: PERRL, conjunctivae normal, anicteric sclerae ENMT: external ear and nose normal, oropharynx normal Neck: trachea midline, no thyromegaly Respiratory: no respiratory distress Auscultation: lungs clear to auscultation bilaterally Cardiovascular: Rate/Rhythm: regular rate and regular rhythm Heart Sounds: no murmur Gastrointestinal (Abdomen): Inspection/Auscultation: abdomen not distended Percussion/Palpation: abdomen soft; abdomen nontender Musculoskeletal: No acute arthritis in any joint Lymphatic: no cervical or axillary lymphadenopathy Results & Data Results & Data ([facility]) Vital Signs (Past 12 Hours) Vital Signs Temp Pulse Pulse Resp BP BP Pulse Ox 03/13/20 12:29 36.3 C L 92 H 17 135/81 95 03/13/20 07:40 36.4 C L 90 18 177/84 H 92 03/13/20 07:17 67 03/13/20 03:56 36.9 C 71 20 135/79 94 Laboratory Results [facility] 03/13/20 05:32 Sodium 138 Potassium 3.8 D Chloride 107 Carbon Dioxide 29 BUN 10 Creatinine 1.30 H Glucose 95 Calcium 8.8 Medications Administered Current Inpatient Medications Acetaminophen (Acetaminophen 500 Mg Tab) 500 mg PO QID PRN PRN Reason: Pain Stop: 04/09/20 16:37 Last Admin: 03/11/20 07:52 Dose: 500 mg Documented by: Al Hydrox/Mg Hydrox/Simethicone (Aluminum/Magnesium Susp 30 Ml Udc) 15 ml PO Q4H PRN PRN Reason: Dyspepsia Stop: 04/09/20 12:41 Ascorbic Acid (Ascorbic Acid 500 Mg Tab) 250 mg PO DAILY [facility] Stop: 04/10/20 08:59 Last Admin: 03/13/20 08:08 Dose: 250 mg Documented by: Aspirin (Aspirin 81 Mg Ectab) [facility] Stop: 04/10/20 08:59 Last Admin: 03/13/20 08:07 Dose: 81 mg Documented by: Atorvastatin Calcium (Atorvastatin 40 Mg Tab) 80 mg PO HS [facility] Stop: 04/09/20 20:59 Last Admin: 03/12/20 21:22 Dose: 80 mg Documented by: Clopidogrel Bisulfate (Clopidogrel Bisulfate 75 Mg Tab) 75 mg PO DAILY [facility] Stop: 04/10/20 08:59 Last Admin: 03/13/20 08:07 Dose: 75 mg Documented by: Famotidine (Famotidine 20 Mg Tab) 20 mg PO BID [facility] Stop: 04/09/20 20:59 Last Admin: 03/13/20 08:07 Dose: 20 mg Documented by: Ferrous Sulfate (Ferrous Sulfate 325 Mg Tab) 325 mg PO DAILY [facility] Stop: 04/10/20 08:59 Last Admin: 03/13/20 08:07 Dose: 325 mg Documented by: Fish Oil ([place]-3 (Purified Fish Oil) 1 Gm Cap) 1 gm PO QAM [facility] Stop: 04/10/20 08:59 Last Admin: 03/13/20 08:07 Dose: 1 gm Documented by: Heparin Sodium (Porcine) (Heparin Sod 5,000 Unit/0.5 Ml Vial) 5,000 units SQ Q8 [facility] Stop: 04/09/20 21:59 Last Admin: 03/13/20 13:11 Dose: Not Given Documented by: Levetiracetam (Levetiracetam 500 Mg Tab) 500 mg PO BID [facility] Stop: 04/09/20 20:59 Last Admin: 03/13/20 08:08 Dose: 500 mg Documented by: Loratadine (Loratadine 10 Mg Tab) 10 mg PO DAILY [facility] Stop: 04/10/20 08:59 Last Admin: 03/13/20 08:07 Dose: 10 mg Documented by: Lorazepam (Lorazepam 0.5 Mg Tab) 0.5 mg PO Q8 PRN PRN Reason: Anxiety Stop: 04/09/20 13:16 Last Admin: 03/12/20 12:16 Dose: 0.5 mg Documented by: Magnesium Hydroxide (Magnesium Hydroxide Susp 30 Ml Udc) 30 ml PO Q12H PRN PRN Reason: Constipation Stop: 04/09/20 12:41 Metoprolol Succinate (Metoprolol Succ 50mg Ext Rel Tab) 50 mg PO DAILY [facility] Stop: 04/11/20 08:59 Last Admin: 03/13/20 08:07 Dose: 50 mg Documented by: Metoprolol Tartrate (Metoprolol Tartrate 1 Mg/Ml Vial) 5 mg IV Q4H PRN PRN Reason: tachycardia Stop: 04/09/20 14:14 Last Admin: 03/11/20 00:21 Dose: 5 mg Documented by: Miscellaneous Information (Pharmacist Discharge Med Rec Consult) 1 ea N/A UD PRN PRN Reason: Consult Stop: 04/09/20 12:52 Multivitamins (Multivitamin Tab) 1 tab PO QAM [facility] Stop: 04/10/20 08:59 Last Admin: 03/13/20 08:07 Dose: 1 tab Documented by: Pantoprazole Sodium (Pantoprazole 40 Mg Tab) 40 mg PO DAILYBB [facility] Stop: 04/10/20 06:29 Last Admin: 03/13/20 05:47 Dose: 40 mg Documented by: Polyethylene Glycol (Polyethylene (Miralax) 17 Gm Pack) 17 gm PO DAILY PRN PRN Reason: Constipation Stop: 04/09/20 12:41 Sertraline HCl (Sertraline Hcl 50 Mg Tablet) 25 mg PO QAM [facility] Stop: 04/11/20 13:29 Last Admin: 03/13/20 08:07 Dose: 25 mg Documented by: Timolol Maleate (Timolol Maleate 0.5% Op Soln 5 Ml Btl) 1 drops OPL QAM [facility] Stop: 04/10/20 08:59 Last Admin: 03/13/20 08:08 Dose: 1 drops Documented by: Vitamin D (Cholecalciferol 1,000 Units 25 Mcg Tab) 2,000 units PO DAILY [facility] Stop: 04/10/20 08:59 Last Admin: 03/13/20 08:07 Dose: 2,000 units Documented by:
[2020-03-13] MEDS ORDERED: OXYMETAZOLINE 0.05% 30 ML BTL NAE ONE (18:23)
[2020-03-13] MEDS ORDERED: LORazepam 0.25 MG/0.5 ML VIAL IV STA ×3 (19:59→22:19)
[2020-03-13] MEDS: ATORVASTATIN 40 MG TAB PO SCH (20:14)
[2020-03-13] MEDS: levETIRAcetam 500 MG in 0.9 % SODIUM CHLORIDE 100 ML IV SCH (20:40)
[2020-03-14 00:28] LABS: Hematocrit (blood only) 36.1 % (37-47)
[2020-03-14] MEDS ORDERED: WATER ONE (05:00)
[2020-03-14] MEDS ORDERED: TRANEXAMIC ACID ONE (05:00)
[2020-03-14] MEDS ORDERED: STERILE ONE (05:00)
[2020-03-14] MEDS: PANTOprazole 40 MG TAB PO SCH (05:32)
[2020-03-14] MEDS: LORazepam 0.5 MG TAB PO PRN (07:30)
[2020-03-14] MEDS: levETIRAcetam 500 MG in 0.9 % SODIUM CHLORIDE 100 ML IV SCH ×2 (07:43→19:18)
[2020-03-14] MEDS: ASCORBIC ACID 500 MG TAB PO SCH (07:43)
[2020-03-14] MEDS: FERROUS SULFATE 325 MG TAB PO SCH ×2 (07:45→08:03)
[2020-03-14] MEDS: FAMOTIDINE 20 MG TAB PO SCH ×2 (07:45→20:01)
[2020-03-14] MEDS: SERTRALINE HCL 50 MG TABLET PO SCH (07:46)
[2020-03-14] MEDS: OMEGA-3 (PURIFIED FISH OIL) 1 GM CAP PO SCH (07:46)
[2020-03-14] MEDS: CHOLECALCIFEROL 1,000 UNITS 25 MCG TAB PO SCH (07:47)
[2020-03-14] MEDS: MULTIVITAMIN TAB PO SCH ×2 (07:47→08:03)
[2020-03-14] MEDS: TIMOLOL MALEATE 0.5% OP SOLN 5 ML BTL OPL SCH (07:48)
[2020-03-14] MEDS: LORATADINE 10 MG TAB PO SCH (07:48)
[2020-03-14] MEDS: METOPROLOL SUCC 50MG EXT REL TAB PO SCH (07:48)
[2020-03-14] MEDS ORDERED: ONDANSETRON INJ 2 MG/ML 2 ML VIAL IV PRN (08:31)
--- NOTE | 2020-03-14 11:57 | Hospitalist Progress Note ---
Date of Service March 14, 2020 Assessment & Plan (1) Stroke: Mild foci of restricted water diffusion within the left frontal lobe consistent with acute/subacute infarcts Vented with strokelike symptoms as below We will continue current medications Nosebleed Minimal nosebleed with spontaneous resolution happened to be this morning Advised to avoid any injury We will put some Vaseline locally Required prolonged compression to stop bleeding this morning of 03/14/2020 No more bleeding since then and awaiting ENT evaluation Still holding aspirin and Plavix and prophylactic heparin for now (2) Stroke-like symptom: In bed with strokelike symptoms with worsening dysarthria as well as difficulty tongue movement Initial CT scan of the head, CTA s were unremarkable and the patient is refusing MRI since admission Appreciate neurology input and recommendation EEG has been ordered Symptoms have resolved Appreciate PT evaluation and recommendation She has been on Keppra and without any evidence of seizures EEG can be done later if needed MRI did show a small left frontal infarct as noted in the imaging She does not have any focal neurological deficit on examination (3) History of CVA (cerebrovascular accident): (4) Cerebrovascular insufficiency syndrome: This is a 70-year-old female who has significant past medical history of left frontal lobe and will left occipital lobe CVA, severe cerebrovascular atherosclerosis, innominate artery stenosis, bilateral subclavian stenosis, aortic arch stenosis, chronic diastolic CHF, atrial ectopic tachycardia, history of SVT, cerebral aneurysm, HTN, CKD stage III, right renal atrophy, GERD, osteoporosis, P.O.A.G., who presents to ED secondary to strokelike symptoms starting at 6:15 AM. Significant peripheral arterial disease Pt with multiple cerebral vascular lesions including High-grade stenosis of the right internal carotid artery, subtotal occlusion of the right innominate artery, occlusion of the proximal left subclavian artery, 80% diameter stenosis of the proximal left common carotid artery, 60% stenosis of proximal left vertebral artery, subtotal occlusion of the proximal right brachiocephalic artery. Patient very high risk despite dual antiplatelet therapy for recurrent CVA and cognitive decline. Has had evaluation by vascular surgery during her recent admission in the hospital with similar symptoms She was supposed to have a follow-up with vascular surgery in [place] (5) Depressed affect: Patient with increased fatigue, increased sleeping and anhedonia Given visual changes and recurrent strokes likely component of depression playing a role Consult psychiatry -patient agreeable, as is to discuss further and possible initiation of antidepressant Psychiatric input and recommendation We will start sertraline 25 mg daily with titration as tolerated (6) Acute worsening of stage 3 chronic kidney disease: baseline Cr 1.0 bun/cr 12 and 1.32 today hold lasix/aldactone monitor renal fxn avoid nephrotoxic agents (7) Chronic diastolic CHF (congestive heart failure): euvolemic hold lasix/aldactone given mild JULIANN daily weight, strict I and O last echo 01/29/20 - EF 55-60%, grade 1 Diastolic dysfunction, left atrium moderately dilated, mild aortic regurg (8) Carotid stenosis: hx of L CEA as above (9) PVD (peripheral vascular disease): as above (10) Atrial ectopic tachycardia: continue metoprolol when able to tolerate PO add prn lopressor HR > 110 while NPO (11) Hypertension: Pt significantly hypertensive allow permissive HTN pt will need a higher than normal BP given significant cerebral vascular disease to perfuse brain hold lasix/aldactone given JULIANN resume metoprolol when able to tolerate PO We will increase the dose of metoprolol to control blood pressure We need to add another medications on top of the (12) Hyperlipidemia: continue high intensity statin (13) COPD (chronic obstructive pulmonary disease): hx of tobacco abuse no acute exacerbation (14) GERD (gastroesophageal reflux disease): continue famotidine, PPI (15) DVT prophylaxis: SQ Heparin Disposition: admit to tele Follow up: PCP Dr. Garcia upon discharge Has been updating her Admission and Anticipated Discharge Date Admission Date: March 10, 2020 Subjective The patient was seen and examined in medical telemetry unit She has a history of significant peripheral and central arterial disease and presented with recurrent strokelike symptoms Symptoms have resolved and she refuses to go for MRI Denies any significant symptoms 03/12/2020 The patient was seen and examined in medical telemetry unit in presence of the She has had some issues with confusion and hallucination She was evaluated by psychiatrist Denies any symptoms as of this morning 03/13/2020 The patient was seen and examined in medical telemetry unit She remains stable with minimal dysarthria No more hallucination but she is looking depressed No more neurological symptoms 03/14/2020 The patient was seen and examined in medical telemetry unit She has had recurrent nosebleeds yesterday and required prolonged compression early this morning to stop the bleeding She has been feeling very lethargic and has had nausea this morning She denies any acute symptoms Review of Systems Review of Systems: All systems reviewed and are unremarkable except as noted below Ear, Nose, Mouth, Throat: + epistaxis (Has had few episodes yesterday. Seems to be stopped now) Respiratory: no cough and no dyspnea Neurologic: Some dysarthria. Generally weak and lethargic Physical Exam Physical Exam: Lying in bed comfortably but looks very ill Constitutional: + thin; no acute distress Eyes: PERRL, conjunctivae normal, anicteric sclerae ENMT: external ear and nose normal, oropharynx normal Nose: + epistaxis (Has been having recurrent epistaxis.Seems stopped since this morning) Neck: trachea midline, no thyromegaly Respiratory: no respiratory distress Auscultation: lungs clear to au scultation bilaterally Cardiovascular: Rate/Rhythm: regular rate and regular rhythm Heart Sounds: no murmur Gastrointestinal (Abdomen): Inspection/Auscultation: abdomen not distended Percussion/Palpation: abdomen soft; abdomen nontender Musculoskeletal: No acute arthritis in any joint Neurologic: Alert and awake. Pleasantly confused. Generally very weak and lethargic Lymphatic: no cervical or axillary lymphadenopathy Results & Data Results & Data ([facility]) Vital Signs (Past 12 Hours) Vital Signs Temp Pulse Pulse Resp BP BP Pulse Ox 03/14/20 10:51 80 03/14/20 07:00 35.9 C L 105 H 16 189/91 H 95 03/14/20 02:39 36.3 C L 78 18 169/68 H 99 Laboratory Results Short CBC 03/14/20 Range/Units 00:14 Hgb 12.0 (12.0-16.0) g/dL Hct 36.1 L (37-47) % Medications Administered Current Inpatient Medications Acetaminophen (Acetaminophen 500 Mg Tab) 500 mg PO QID PRN PRN Reason: Pain Stop: 04/09/20 16:37 Last Admin: 03/11/20 07:52 Dose: 500 mg Documented by: Al Hydrox/Mg Hydrox/Simethicone (Aluminum/Magnesium Susp 30 Ml Udc) 15 ml PO Q4H PRN PRN Reason: Dyspepsia Stop: 04/09/20 12:41 Ascorbic Acid (Ascorbic Acid 500 Mg Tab) 250 mg PO DAILY [facility] Stop: 04/10/20 08:59 Last Admin: 03/14/20 07:43 Dose: 250 mg Documented by: Aspirin (Aspirin 81 Mg Ectab) 81 mg PO QAM [facility] Stop: 04/10/20 08:59 Last Admin: 03/13/20 08:07 Dose: 81 mg Documented by: Atorvastatin Calcium (Atorvastatin 40 Mg Tab) 80 mg PO HS [facility] Stop: 04/09/20 20:59 Last Admin: 03/13/20 20:14 Dose: Not Given Documented by: Clopidogrel Bisulfate (Clopidogrel Bisulfate 75 Mg Tab) 75 mg PO DAILY [facility] Stop: 04/10/20 08:59 Last Admin: 03/13/20 08:07 Dose: 75 mg Documented by: Famotidine (Famotidine 20 Mg Tab) 20 mg PO BID [facility] Stop: 04/09/20 20:59 Last Admin: 03/14/20 07:45 Dose: 20 mg Documented by: Ferrous Sulfate (Ferrous Sulfate 325 Mg Tab) 325 mg PO DAILY [facility] Stop: 04/10/20 08:59 Last Admin: 03/14/20 08:03 Dose: Not Given Documented by: Fish Oil ([place]-3 (Purified Fish Oil) 1 Gm Cap) 1 gm PO QAM [facility] Stop: 04/10/20 08:59 Last Admin: 03/14/20 07:46 Dose: 1 gm Documented by: Heparin Sodium (Porcine) (Heparin Sod 5,000 Unit/0.5 Ml Vial) 5,000 units SQ Q8 [facility] Stop: 04/09/20 21:59 Last Admin: 03/13/20 13:11 Dose: Not Given Documented by: Levetiracetam 500 mg/ Sodium (Chloride) 105 mls @ 420 mls/hr IV Q12H [facility] Stop: 04/12/20 19:59 Last Infusion: 03/14/20 08:02 Dose: Infused Documented by: Levetiracetam (Levetiracetam 500 Mg Tab) 500 mg PO BID [facility] Stop: 04/09/20 20:59 Last Admin: 03/13/20 08:08 Dose: 500 mg Documented by: Loratadine (Loratadine 10 Mg Tab) 10 mg PO DAILY [facility] Stop: 04/10/20 08:59 Last Admin: 03/14/20 07:48 Dose: 10 mg Documented by: Lorazepam (Lorazepam 0.5 Mg Tab) 0.5 mg PO Q8 PRN PRN Reason: Anxiety Stop: 04/09/20 13:16 Last Admin: 03/14/20 07:30 Dose: 0.5 mg Documented by: Magnesium Hydroxide (Magnesium Hydroxide Susp 30 Ml Udc) 30 ml PO Q12H PRN PRN Reason: Constipation Stop: 04/09/20 12:41 Metoprolol Succinate (Metoprolol Succ 50mg Ext Rel Tab) 50 mg PO DAILY [facility] Stop: 04/11/20 08:59 Last Admin: 03/14/20 07:48 Dose: 50 mg Documented by: Metoprolol Tartrate (Metoprolol Tartrate 1 Mg/Ml Vial) 5 mg IV Q4H PRN PRN Reason: tachycardia Stop: 04/09/20 14:14 Last Admin: 03/11/20 00:21 Dose: 5 mg Documented by: Miscellaneous Information (Pharmacist Discharge Med Rec Consult) 1 ea N/A UD PRN PRN Reason: Consult Stop: 04/09/20 12:52 Multivitamins (Multivitamin Tab) 1 tab PO QAM [facility] Stop: 04/10/20 08:59 Last Admin: 03/14/20 08:03 Dose: Not Given Documented by: Ondansetron HCl (Ondansetron Inj 2 Mg/Ml 2 Ml Vial) 4 mg IV Q6H PRN PRN Reason: Nausea Stop: 04/13/20 08:30 Pantoprazole Sodium (Pantoprazole 40 Mg Tab) 40 mg PO DAILYBB [facility] Stop: 04/10/20 06:29 Last Admin: 03/14/20 05:32 Dose: Not Given Documented by: Polyethylene Glycol (Polyethylene (Miralax) 17 Gm Pack) 17 gm PO DAILY PRN PRN Reason: Constipation Stop: 04/09/20 12:41 Sertraline HCl (Sertraline Hcl 50 Mg Tablet) 25 mg PO QAM [facility] Stop: 04/11/20 13:29 Last Admin: 03/14/20 07:46 Dose: 25 mg Documented by: Timolol Maleate (Timolol Maleate 0.5% Op Soln 5 Ml Btl) 1 drops OPL QAM [facility] Stop: 04/10/20 08:59 Last Admin: 03/14/20 07:48 Dose: 1 drops Documented by: Vitamin D (Cholecalciferol 1,000 Units 25 Mcg Tab) 2,000 units PO DAILY [facility] Stop: 04/10/20 08:59 Last Admin: 03/14/20 07:47 Dose: 2,000 units Documented by:
[2020-03-14] MEDS: ATORVASTATIN 40 MG TAB PO SCH (20:01)
[2020-03-15] MEDS: ACETAMINOPHEN 500 MG TAB PO PRN ×2 (05:00→15:59)
[2020-03-15] MEDS: PANTOprazole 40 MG TAB PO SCH (06:13)
[2020-03-15 07:48] LABS: Basophils # (auto) 0.01 K/uL (0-0.2); Basophils % (auto) 0.1 %; Eosinophils # (auto) 0.02 K/uL (0-0.5); Eosinophils % (auto) 0.2 %; Hematocrit (blood only) 38.6 % (37-47); Hemoglobin 12.5 g/dL (12.0-16.0); Immature Granulocytes # (auto) 0.02 K/uL (0.00-0.02); Immature Granulocytes % (auto) 0.2 %; Lymphocytes # (auto) 1.58 K/uL (1.2-3.4); Lymphocytes % (auto) 17.3 %; Mean Corpuscular Hgb Conc 32.4 g/dL (32-36); Mean Corpuscular Volume 101.8 fL (80-100); Mean Platelet Volume 10.2 fL (7.4-10.4); Monocytes # (auto) 0.84 K/uL (0.11-0.59); Monocytes % (auto) 9.2 %; Neutrophils # (auto) 6.66 K/uL (1.4-6.5); Platelet Count 220 K/uL (130-400); RDW Coefficient of Variation 12.9 % (11.5-14.5); RDW Standard Deviation 46.1 fL (36.4-46.3); Red Blood Count 3.79 M/uL (4.2-5.4); White Blood Count 9.13 K/uL (4.8-10.8)
[2020-03-15] MEDS: FAMOTIDINE 20 MG TAB PO SCH ×2 (08:34→20:12)
[2020-03-15] MEDS: MULTIVITAMIN TAB PO SCH (08:34)
[2020-03-15] MEDS: LORATADINE 10 MG TAB PO SCH (08:34)
[2020-03-15] MEDS: FERROUS SULFATE 325 MG TAB PO SCH (08:34)
[2020-03-15] MEDS: METOPROLOL SUCC 50MG EXT REL TAB PO SCH (08:35)
[2020-03-15] MEDS: ASCORBIC ACID 500 MG TAB PO SCH (08:35)
[2020-03-15] MEDS: TIMOLOL MALEATE 0.5% OP SOLN 5 ML BTL OPL SCH (08:35)
[2020-03-15] MEDS: SERTRALINE HCL 50 MG TABLET PO SCH (08:36)
[2020-03-15] MEDS: CHOLECALCIFEROL 1,000 UNITS 25 MCG TAB PO SCH (08:36)
[2020-03-15] MEDS: OMEGA-3 (PURIFIED FISH OIL) 1 GM CAP PO SCH (08:42)
[2020-03-15] MEDS ORDERED: ALUMINUM/MAGNESIUM SUSP 30 ML UDC PO PRN (08:56)
[2020-03-15 08:57] LABS: BUN Creatinine Ratio 11.3 (10-20); Calcium 9.7 mg/dl (8.5-10.1); Creatinine Clr Calc Pharmacy 33.4 ml/min; Est GFR (African American) 57.2; Est GFR (Non-African American) 49.4; Potassium 3.6 mmol/L (3.5-5.1)
[2020-03-15] MEDS: levETIRAcetam 500 MG in 0.9 % SODIUM CHLORIDE 100 ML IV SCH (09:08)
[2020-03-15] MEDS: levETIRAcetam 500 MG TAB PO SCH ×2 (10:59→20:12)
--- NOTE | 2020-03-15 14:02 | Hospitalist Progress Note ---
Date of Service March 15, 2020 Assessment & Plan (1) Stroke: Mild foci of restricted water diffusion within the left frontal lobe consistent with acute/subacute infarcts Presented with strokelike symptoms as below Condition seems to be getting worse with generalized weakness Nosebleed Minimal nosebleed with spontaneous resolution happened to be this morning Advised to avoid any injury We will put some Vaseline locally Required prolonged compression to stop bleeding this morning of 03/14/2020 No more bleeding since then and awaiting ENT evaluation Still holding aspirin and Plavix and prophylactic heparin for now ENT consulted-awaiting response (2) Stroke-like symptom: In bed with strokelike symptoms with worsening dysarthria as well as difficulty tongue movement Initial CT scan of the head, CTA s were unremarkable and the patient is refusing MRI since admission Appreciate neurology input and recommendation EEG has been ordered Symptoms have resolved Appreciate PT evaluation and recommendation She has been on Keppra and without any evidence of seizures EEG can be done later if needed MRI did show a small left frontal infarct as noted in the imaging She does not have any focal neurological deficit on examination Been deteriorating with generalized weakness and inability to participate in PT and OT (3) History of CVA (cerebrovascular accident): (4) Cerebrovascular insufficiency syndrome: This is a 70-year-old female who has significant past medical history of left frontal lobe and will left occipital lobe CVA, severe cerebrovascular atherosclerosis, innominate artery stenosis, bilateral subclavian stenosis, aortic arch stenosis, chronic diastolic CHF, atrial ectopic tachycardia, history of SVT, cerebral aneurysm, HTN, CKD stage III, right renal atrophy, GERD, osteoporosis, P.O.A.G., who presents to ED secondary to strokelike symptoms starting at 6:15 AM. Significant peripheral arterial disease Pt with multiple cerebral vascular lesions including High-grade stenosis of the right internal carotid artery, subtotal occlusion of the right innominate artery, occlusion of the proximal left subclavian artery, 80% diameter stenosis of the proximal left common carotid artery, 60% stenosis of proximal left vertebral artery, subtotal occlusion of the proximal right brachiocephalic artery. Patient very high risk despite dual antiplatelet therapy for recurrent CVA and cognitive decline. Has had evaluation by vascular surgery during her recent admission in the hospital with similar symptoms She was supposed to have a follow-up with vascular surgery in [place] (5) Depressed affect: Patient with increased fatigue, increased sleeping and anhedonia Given visual changes and recurrent strokes likely component of depression playing a role Consult psychiatry -patient agreeable, as is to discuss further and possible initiation of antidepressant Psychiatric input and recommendation We will start sertraline 25 mg daily with titration as tolerated (6) Acute worsening of stage 3 chronic kidney disease: baseline Cr 1.0 bun/cr 12 and 1.32 today hold lasix/aldactone monitor renal fxn avoid nephrotoxic agents (7) Chronic diastolic CHF (congestive heart failure): euvolemic hold lasix/aldactone given mild JULIANN daily weight, strict I and O last echo 01/29/20 - EF 55-60%, grade 1 Diastolic dysfunction, left atrium moderately dilated, mild aortic regurg Doubt any fluid overload (8) Carotid stenosis: hx of L CEA as above (9) PVD (peripheral vascular disease): as above (10) Atrial ectopic tachycardia: continue metoprolol when able to tolerate PO add prn lopressor HR > 110 while NPO (11) Hypertension: Pt significantly hypertensive allow permissive HTN pt will need a higher than normal BP given significant cerebral vascular disease to perfuse brain hold lasix/aldactone given JULIANN resume metoprolol when able to tolerate PO We will increase the dose of metoprolol to control blood pressure Blood pressure remains stable (12) Hyperlipidemia: continue high intensity statin (13) COPD (chronic obstructive pulmonary disease): hx of tobacco abuse no acute exacerbation (14) GERD (gastroesophageal reflux disease): continue famotidine, PPI (15) DVT prophylaxis: SQ Heparin-on hold for now Disposition: admit to tele Follow up: PCP Dr. Garcia upon discharge Has been updating her Admission and Anticipated Discharge Date Admission Date: March 10, 2020 Subjective The patient was seen and examined in medical telemetry unit She has a history of significant peripheral and central arterial disease and presented with recurrent strokelike symptoms Symptoms have resolved and she refuses to go for MRI Denies any significant symptoms 03/12/2020 The patient was seen and examined in medical telemetry unit in presence of the She has had some issues with confusion and hallucination She was evaluated by psychiatrist Denies any symptoms as of this morning 03/13/2020 The patient was seen and examined in medical telemetry unit She remains stable with minimal dysarthria No more hallucination but she is looking depressed No more neurological symptoms 03/14/2020 The patient was seen and examined in medical telemetry unit She has had recurrent nosebleeds yesterday and required prolonged compression early this morning to stop the bleeding She has been feeling very lethargic and has had nausea this morning She denies any acute symptoms 03/15/2020 The patient was seen and examined in medical telemetry unit She has been still having nosebleed Remains very weak and lethargic and could not participate fully in physical therapy due to weakness Condition seems to be worsening Review of Systems Review of Systems: All systems reviewed and are unremarkable except as noted below Ear, Nose, Mouth, Throat: + epistaxis (Has had few episodes yesterday. Seems to be stopped now) Neurologic: Some dysarthria. Generally weak and lethargic Psychiatric: + anxiety and + confusion Physical Exam Physical Exam: Lying in bed comfortably but looks very ill Constitutional: + thin; no acute distress Eyes: PERRL, conjunctivae normal, anicteric sclerae ENMT: external ear and nose normal, oropharynx normal Nose: + epistaxis (Has been having recurrent epistaxis.Seems stopped since this morning) Neck: trachea midline, no thyromegaly Respiratory: no respiratory distress Auscultation: lungs clear to auscultation bilaterally Cardiovascular: Rate/Rhythm: regular rate and regular rhythm Heart Sounds: no murmur Gastrointestinal (Abdomen): Inspection/Auscultation: abdomen not distended Percussion/Palpation: abdomen soft; abdomen nontender Musculoskeletal: No acute arthritis in any joint Neurologic: Generally weak and lethargic. Pleasantly confused Lymphatic: no cervical or axillary lymphadenopathy Results & Data Results & Data ([facility]) Vital Signs (Past 12 Hours) Vital Signs Temp Pulse Pulse Resp BP Pulse Ox 03/15/20 11:00 36.3 C L 16 127/83 99 03/15/20 07:28 85 03/15/20 06:38 36.7 C 93 H 14 134/84 97 03/15/20 03:19 36.4 C L 93 H 16 115/76 98 Laboratory Results Short CBC 03/15/20 Range/Units 07:33 WBC 9.13 (4.8-10.8) K/uL Hgb 12.5 (12.0-16.0) g/dL Hct 38.6 (37-47) % Plt Count 220 (130-400) K/uL BMP 03/15/20 07:33 Sodium 137 Potassium 3.6 Chloride 104 Carbon Dioxide 27 BUN 13 Creatinine 1.12 Glucose 98 Calcium 9.7 Medications Administered Current Inpatient Medications Acetaminophen (Acetaminophen 500 Mg Tab) 500 mg PO QID PRN PRN Reason: Pain Stop: 04/09/20 16:37 Last Admin: 03/15/20 05:00 Dose: 500 mg Documented by: Al Hydrox/Mg Hydrox/Simethicone (Aluminum/Magnesium Susp 30 Ml Udc) 15 ml PO Q4H PRN PRN Reason: Dyspepsia Stop: 04/09/20 12:41 Al Hydrox/Mg Hydrox/Simethicone (Aluminum/Magnesium Susp 30 Ml Udc) 15 ml PO Q6H PRN PRN Reason: Dyspepsia Stop: 04/14/20 08:55 Aspirin (Aspirin 81 Mg Ectab) 81 mg PO QAM [facility] Stop: 04/10/20 08:59 Last Admin: 03/13/20 08:07 Dose: 81 mg Documented by: Atorvastatin Calcium (Atorvastatin 40 Mg Tab) 80 mg PO HS [facility] Stop: 04/09/20 20:59 Last Admin: 03/14/20 20:01 Dose: 80 mg Documented by: Clopidogrel Bisulfate (Clopidogrel Bisulfate 75 Mg Tab) 75 mg PO DAILY [facility] Stop: 04/10/20 08:59 Last Admin: 03/13/20 08:07 Dose: 75 mg Documented by: Famotidine (Famotidine 20 Mg Tab) 20 mg PO BID [facility] Stop: 04/09/20 20:59 Last Admin: 03/15/20 08:34 Dose: 20 mg Documented by: Ferrous Sulfate (Ferrous Sulfate 325 Mg Tab) 325 mg PO DAILY [facility] Stop: 04/10/20 08:59 Last Admin: 03/15/20 08:34 Dose: 325 mg Documented by: Fish Oil ([place]-3 (Purified Fish Oil) 1 Gm Cap) 1 gm PO QAM [facility] Stop: 04/10/20 08:59 Last Admin: 03/15/20 08:42 Dose: Not Given Documented by: Heparin Sodium (Porcine) (Heparin Sod 5,000 Unit/0.5 Ml Vial) 5,000 units SQ Q8 [facility] Stop: 04/09/20 21:59 Last Admin: 03/13/20 13:11 Dose: Not Given Documented by: Levetiracetam (Levetiracetam 500 Mg Tab) 500 mg PO BID [facility] Stop: 04/09/20 20:59 Last Admin: 03/15/20 10:59 Dose: 500 mg Documented by: Loratadine (Loratadine 10 Mg Tab) 10 mg PO DAILY [facility] Stop: 04/10/20 08:59 Last Admin: 03/15/20 08:34 Dose: 10 mg Documented by: Lorazepam (Lorazepam 0.5 Mg Tab) 0.5 mg PO Q8 PRN PRN Reason: Anxiety Stop: 04/09/20 13:16 Last Admin: 03/14/20 07:30 Dose: 0.5 mg Documented by: Magnesium Hydroxide (Magnesium Hydroxide Susp 30 Ml Udc) 30 ml PO Q12H PRN PRN Reason: Constipation Stop: 04/09/20 12:41 Metoprolol Succinate (Metoprolol Succ 50mg Ext Rel Tab) 50 mg PO DAILY [facility] Stop: 04/11/20 08:59 Last Admin: 03/15/20 08:35 Dose: 50 mg Documented by: Metoprolol Tartrate (Metoprolol Tartrate 1 Mg/Ml Vial) 5 mg IV Q4H PRN PRN Reason: tachycardia Stop: 04/09/20 14:14 Last Admin: 03/11/20 00:21 Dose: 5 mg Documented by: Miscellaneous Information (Pharmacist Discharge Med Rec Consult) 1 ea N/A UD PRN PRN Reason: Consult Stop: 04/09/20 12:52 Multivitamins (Multivitamin Tab) 1 tab PO QAM [facility] Stop: 04/10/20 08:59 Last Admin: 03/15/20 08:34 Dose: 1 tab Documented by: Ondansetron HCl (Ondansetron Inj 2 Mg/Ml 2 Ml Vial) 4 mg IV Q6H PRN PRN Reason: Nausea Stop: 04/13/20 08:30 Pantoprazole Sodium (Pantoprazole 40 Mg Tab) 40 mg PO DAILYBB [facility] Stop: 04/10/20 06:29 Last Admin: 03/15/20 06:13 Dose: 40 mg Documented by: Polyethylene Glycol (Polyethylene (Miralax) 17 Gm Pack) 17 gm PO DAILY PRN PRN Reason: Constipation Stop: 04/09/20 12:41 Sertraline HCl (Sertraline Hcl 50 Mg Tablet) 25 mg PO QAM [facility] Stop: 04/11/20 13:29 Last Admin: 03/15/20 08:36 Dose: 25 mg Documented by: Timolol Maleate (Timolol Maleate 0.5% Op Soln 5 Ml Btl) 1 drops OPL QAM [facility] Stop: 04/10/20 08:59 Last Admin: 03/15/20 08:35 Dose: 1 drops Documented by: Vitamin D (Cholecalciferol 1,000 Units 25 Mcg Tab) 2,000 units PO DAILY [facility] Stop: 04/10/20 08:59 Last Admin: 03/15/20 08:36 Dose: 2,000 units Documented by:
--- NOTE | 2020-03-15 15:53 | ENT Consultation ---
Date of Consultation March 15, 2020 Assessment & Plan (1) Epistaxis: Epistaxis management as above if has further bleeding, would apply pressure to the anterior nose ( soft part) until bleeding stops. If has further bleeding, could consider stoppage of antiplatelet drugs if medically allowable Absorbable packing placed, does not require removal can use saline spray for nasal hydration Present on Admission?: No History of Present Illness Attending Physician: Tacos Connolly MD History of Present Illness 70 yo female admitted with stroke, on plavix and ASA who has had intermittent right sided epistaxis over the past few days. Bleeding has been able to be stopped with anterior pressure in the past. No specific alleviating or exacerbating factors. No other signs or symptoms. Location is right nare. Timing is intermittent in nature. Severity is mild to moderate in nature. Allergies Allergy/AdvReac Type Severity Reaction Status Date / Time hydrocodone Allergy Intermediate CONFUSION Verified 03/10/20 08:06 ramipril Allergy Intermediate Nausea Verified 03/10/20 08:06 Sulfa (Sulfonamide Allergy Intermediate Nausea Verified 03/10/20 08:06 Antibiotics) Home Medications Medication Instructions Recorded Confirmed Type atorvastatin 80 mg PO HS 02/22/18 03/10/20 History multivitamin 1 tab PO QAM 02/22/18 03/10/20 History omega [id number]-fish oil [Fish Oil] 1,000 mg PO QAM 02/22/18 03/10/20 History timolol maleate 1 drp [facility] QA 08/21/18 03/10/20 History acetaminophen [Tylenol Extra 500 mg PO QID PRN 10/10/18 03/10/20 History Strength] furosemide [Lasix] 10 mg PO DAILY 11/14/18 03/10/20 History famotidine 20 mg PO BID 01/23/20 03/10/20 History Vitron-C 1 tab PO DAILY 01/28/20 03/10/20 History aspirin 81 mg PO DAILY 01/28/20 03/10/20 History cholecalciferol (vitamin D3) 50 mcg PO DAILY 01/28/20 03/10/20 History spironolactone 12.5 mg PO DAILY 01/28/20 03/10/20 History amoxicillin 2,000 mg PO ONCE PRN 02/18/20 03/10/20 History clopidogrel [Plavix] 75 mg PO DAILY 02/18/20 03/10/20 History loratadine [Claritin] 10 mg PO DAILY 02/18/20 03/10/20 History pantoprazole [Protonix] 20 mg PO DAILYBB 02/18/20 03/10/20 History levetiracetam 500 mg PO BID 03/10/20 03/10/20 History metoprolol succinate 25 mg PO DAILY 03/10/20 03/10/20 History Patient History Medical History Anemia HX OF ANEMIA Atrial ectopic tachycardia [place] FOLLOWS WITH DR CONDON - LAST SEEN WEEK OF 09/30 Carotid stenosis S/P LEFT CEA (2012)- FOLLOWS WITH S IN [place] Chronic diastolic CHF (congestive heart failure) COPD (chronic obstructive pulmonary disease) GERD (gastroesophageal reflux disease) H/O gastric ulcer History of CVA (cerebrovascular accident) Hyperlipidemia Hypertension Prolonged Q-T interval on ECG PVD (peripheral vascular disease) Surgical History H/O exploratory laparotomy 08/25/2018. Done 2/ perforated gastric ulcer. Flynn 3, Grade 1 view. 7.5 ETT placed. no issues. History of carotid endarterectomy LEFT CEA (2012) History of cataract extraction RIGHT AND LEFT History of hand surgery History of left hip replacement History of tonsillectomy Family History Other COPD (chronic obstructive pulmonary disease) Kidney disease Social History Smoking Status: Former smoker Tobacco Type: Cigarettes Years Smoked: 30; Smoking End Date: 1997; Second Hand Exposure: No; Do You Dip or Chew Tobacco: No; Hx Alcohol Use: Yes Alcohol type: wine Alcohol Intake Frequency: 2-4 x/Month Hx Substance Use: No Preferred Language: Korean Communication Ability: Effective Visual Impairment: No Limitations Perfusionist Required: No marital status: Current Living Situation: Spouse Other Information That Helps Us Care for You: No Feels Safe at Home: Yes Safety Concerns: Feels Safe At This Time Assistive Devices: None Review of Systems Review of Systems: All systems reviewed & are unremarkable except as noted in HPI & below Physical Exam Physical Exam: PROCEDURE: Attention directed to the right side of the nose. Clot was suctioned from the right side of the nose. No active bleeding noted. Prominent caudal septal vessel noted on the right. Two, "Bleed arrest" packs were placed over the prominent vessel. Patient tolerated procedure well. Constitutional: WD/WN, vitals as above + altered mental status Eyes: PERRL, conjunctivae normal, anicteric sclerae ENMT: prominent right caudal septal vessel noted after clot suctioned from nose Neck: trachea midline, no thyromegaly Respiratory: normal respiratory effort Skin: no rashes, warm and dry Neurologic: + confused Results & Data ([facility]) Vital Signs (Past 12 Hours) Vital Signs Temp Pulse Pulse Resp BP BP Pulse Ox 03/15/20 15:00 36.9 C 73 16 143/84 H 93 03/15/20 11:00 36.3 C L 16 127/83 99 03/15/20 07:28 85 03/15/20 06:38 36.7 C 93 H 14 134/84 97
[2020-03-15] MEDS: ATORVASTATIN 40 MG TAB PO SCH (20:12)
--- NOTE | 2020-03-15 20:49 | Progress Notes ---
DATE: 03/15/2020 NEUROLOGY PROGRESS NOTE SUBJECTIVE: The patient was seen and examined at bedside this afternoon. Nurse sitting at bedside. The patient was previously and recently seen by ENT for epistaxis. The patient is currently unhappy although denies pain. She would not voice why she is upset. However, she is not wanting to participate in formal physical exam. The patient had suffered from epistaxis for the last 2 days, which required stopping Plavix. OBJECTIVE: VITAL SIGNS: Blood pressure 143/84, pulse is 71, respiratory rate 16, temperature is 36.9 degrees Celsius, oxygen saturation is 93% on room air. CONSTITUTION: The patient is awake. She is resting in bed underneath the covers. She appears upset. She is unwilling to smile, although her face does appear symmetric. She is not willing to show me her hands. She is answering some simple questions, although her speech is very soft. Her eyes are midline. She is not having any tremor or myoclonic jerks. Speech is minimal and nonfluent. She is not obeying commands. DIAGNOSTIC TESTING AND LABORATORY VALUES: WBC 9.13, RBC 3.79, hemoglobin 12.5, platelet count 220. No recent imaging. 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 The patient has been seen by vascular surgery in the past and discussed interventional options. Per patient and family choice, it was decided to defer on surgery. The patient unfortunately is not tolerating dual antiplatelet therapy at the moment and suffering from epistaxis. On examination currently, she is not having any bleeding, although a blood clot was removed from her nose earlier per nursing report. Agree with holding Plavix for now and continue aspirin. May consider restarting dual antiplatelet therapy in the future if the patient tolerates well. Otherwise, the patient did have a recent ambulatory EEG which was returned today, which showed no evidence of epileptiform activity or epileptiform discharges. There was focal slowing seen in the left consistent with prior stroke. Otherwise, the patient can follow up with us as an outpatient. Please contact me with any additional questions or concerns.
[2020-03-15] MEDS: HEPARIN SOD 5,000 UNIT/0.5 ML VIAL SQ SCH (20:50)
[2020-03-16] MEDS: ACETAMINOPHEN 500 MG TAB PO PRN (03:51)
[2020-03-16] MEDS: PANTOprazole 40 MG TAB PO SCH (05:47)
[2020-03-16] MEDS: HEPARIN SOD 5,000 UNIT/0.5 ML VIAL SQ SCH ×2 (05:47→21:22)
[2020-03-16] MEDS: METOPROLOL SUCC 50MG EXT REL TAB PO SCH (07:59)
[2020-03-16] MEDS: MULTIVITAMIN TAB PO SCH (07:59)
[2020-03-16] MEDS: FERROUS SULFATE 325 MG TAB PO SCH (07:59)
[2020-03-16] MEDS: FAMOTIDINE 20 MG TAB PO SCH ×2 (07:59→21:23)
[2020-03-16] MEDS: LORATADINE 10 MG TAB PO SCH (07:59)
[2020-03-16] MEDS: levETIRAcetam 500 MG TAB PO SCH ×2 (07:59→21:23)
[2020-03-16] MEDS: CHOLECALCIFEROL 1,000 UNITS 25 MCG TAB PO SCH (07:59)
[2020-03-16] MEDS: SERTRALINE HCL 50 MG TABLET PO SCH (07:59)
[2020-03-16] MEDS: TIMOLOL MALEATE 0.5% OP SOLN 5 ML BTL OPL SCH (08:00)
[2020-03-16] MEDS: OMEGA-3 (PURIFIED FISH OIL) 1 GM CAP PO SCH (08:00)
[2020-03-16] MEDS: ASPIRIN 81 MG ECTAB PO SCH (08:01)
[2020-03-16 09:01] LABS: Basophils # (auto) 0.02 K/uL (0-0.2); Basophils % (auto) 0.3 %; Eosinophils # (auto) 0.07 K/uL (0-0.5); Hematocrit (blood only) 34.3 % (37-47); Hemoglobin 11.5 g/dL (12.0-16.0); Immature Granulocytes # (auto) 0.01 K/uL (0.00-0.02); Immature Granulocytes % (auto) 0.1 %; Lymphocytes % (auto) 29.7 %; Mean Corpuscular Hgb Conc 33.5 g/dL (32-36); Mean Corpuscular Volume 98.3 fL (80-100); Mean Platelet Volume 10.3 fL (7.4-10.4); Monocytes # (auto) 0.46 K/uL (0.11-0.59); Monocytes % (auto) 6.8 %; Neutrophils # (auto) 4.17 K/uL (1.4-6.5); Neutrophils % (auto) 62.1 %; Platelet Count 202 K/uL (130-400); RDW Standard Deviation 42.8 fL (36.4-46.3); Red Blood Count 3.49 M/uL (4.2-5.4); White Blood Count 6.73 K/uL (4.8-10.8)
[2020-03-16 09:05] LABS: BUN Creatinine Ratio 13.5 (10-20); Calcium 9.6 mg/dl (8.5-10.1); Creatinine Clr Calc Pharmacy 34.6 ml/min; Est GFR (African American) 59.8; Est GFR (Non-African American) 51.6; Potassium 3.2 mmol/L (3.5-5.1)
[2020-03-16] MEDS ORDERED: SODIUM CHLORIDE 0.65% NA SOLN 45 ML (OCEAN) PRN (11:41)
[2020-03-16] MEDS ORDERED: POTASSIUM CHLORIDE CRTAB 20 MEQ TABCR PO STA (15:34)
--- NOTE | 2020-03-16 15:49 | Hospitalist Progress Note ---
Date of Service March 16, 2020 Assessment & Plan (1) Stroke: Mild foci of restricted water diffusion within the left frontal lobe consistent with acute/subacute infarcts Presented with strokelike symptoms as below Condition seems to be getting worse with generalized weakness Remains very weak and lethargic and no improvement of her condition since yesterday Pleasantly confused and participated minimally with PT Nosebleed Minimal nosebleed with spontaneous resolution happened to be this morning Advised to avoid any injury We will put some Vaseline locally Required prolonged compression to stop bleeding this morning of 03/14/2020 No more bleeding since then and awaiting ENT evaluation Still holding aspirin and Plavix and prophylactic heparin for now ENT consult appreciated:if has further bleeding, would apply pressure to the anterior nose ( soft part) until bleeding stops. If has further bleeding, could consider stoppage of antiplatelet drugs if medically allowable Absorbable packing placed, does not require removal can use saline spray for nasal hydration . No more bleeding from the nose since yesterday morning As per instruction aspirin, Plavix and prophylactic heparin have been started If the bleeding recurs we will have to discontinue any form of anticoagulation (2) Stroke-like symptom: In bed with strokelike symptoms with worsening dysarthria as well as difficulty tongue movement Initial CT scan of the head, CTA s were unremarkable and the patient is refusing MRI since admission Appreciate neurology input and recommendation EEG has been ordered Symptoms have resolved Appreciate PT evaluation and recommendation She has been on Keppra and without any evidence of seizures EEG can be done later if needed MRI did show a small left frontal infarct as noted in the imaging She does not have any focal neurological deficit on examination Been deteriorating with generalized weakness and inability to participate in PT and OT Gradually deteriorating (3) History of CVA (cerebrovascular accident): (4) Cerebrovascular insufficiency syndrome: This is a 70-year-old female who has significant past medical history of left frontal lobe and will left occipital lobe CVA, severe cerebrovascular atherosclerosis, innominate artery stenosis, bilateral subclavian stenosis, aortic arch stenosis, chronic diastolic CHF, atrial ectopic tachycardia, history of SVT, cerebral aneurysm, HTN, CKD stage III, right renal atrophy, GERD, osteoporosis, P.O.A.G., who presents to ED secondary to strokelike symptoms starting at 6:15 AM. Significant peripheral arterial disease Pt with multiple cerebral vascular lesions including High-grade stenosis of the right internal carotid artery, subtotal occlusion of the right innominate artery, occlusion of the proximal left subclavian artery, 80% diameter stenosis of the proximal left common carotid artery, 60% stenosis of proximal left vertebral artery, subtotal occlusion of the proximal right brachiocephalic artery. Patient very high risk despite dual antiplatelet therapy for recurrent CVA and cognitive decline. Has had evaluation by vascular surgery during her recent admission in the hospital with similar symptoms She was supposed to have a follow-up with vascular surgery in [place] (5) Depressed affect: Patient with increased fatigue, increased sleeping and anhedonia Given visual changes and recurrent strokes likely component of depression playing a role Consult psychiatry -patient agreeable, as is to discuss further and possible initiation of antidepressant Psychiatric input and recommendation We will start sertraline 25 mg daily with titration as tolerated (6) Acute worsening of stage 3 chronic kidney disease: baseline Cr 1.0 bun/cr 12 and 1.32 today hold lasix/aldactone monitor renal fxn avoid nephrotoxic agents Kidney function has been normalized (7) Chronic diastolic CHF (congestive heart failure): euvolemic hold lasix/aldactone given mild JULIANN daily weight, strict I and O last echo 01/29/20 - EF 55-60%, grade 1 Diastolic dysfunction, left atrium moderately dilated, mild aortic regurg Doubt any fluid overload (8) Carotid stenosis: hx of L CEA as above (9) PVD (peripheral vascular disease): as above (10) Atrial ectopic tachycardia: continue metoprolol when able to tolerate PO add prn lopressor HR > 110 while NPO (11) Hypertension: Pt significantly hypertensive allow permissive HTN pt will need a higher than normal BP given significant cerebral vascular disease to perfuse brain hold lasix/aldactone given JULIANN resume metoprolol when able to tolerate PO We will increase the dose of metoprolol to control blood pressure Blood pressure remains stable (12) Hyperlipidemia: continue high intensity statin (13) COPD (chronic obstructive pulmonary disease): hx of tobacco abuse no acute exacerbation (14) GERD (gastroesophageal reflux disease): continue famotidine, PPI (15) DVT prophylaxis: SQ Heparin-restarted Disposition: Awaiting placement Follow up: PCP Dr. Garcia upon discharge Has been updating her Admission and Anticipated Discharge Date Admission Date: March 10, 2020 Subjective The patient was seen and examined in medical telemetry unit She has a history of significant peripheral and central arterial disease and presented with recurrent strokelike symptoms Symptoms have resolved and she refuses to go for MRI Denies any significant symptoms 03/12/2020 The patient was seen and examined in medical telemetry unit in presence of the She has had some issues with confusion and hallucination She was evaluated by psychiatrist Denies any symptoms as of this morning 03/13/2020 The patient was seen and examined in medical telemetry unit She remains stable with minimal dysarthria No more hallucination but she is looking depressed No more neurological symptoms 03/14/2020 The patient was seen and examined in medical telemetry unit She has had recurrent nosebleeds yesterday and required prolonged compression early this morning to stop the bleeding She has been feeling very lethargic and has had nausea this morning She denies any acute symptoms 03/15/2020 The patient was seen and examined in medical telemetry unit She has been still having nosebleed Remains very weak and lethargic and could not participate fully in physical therapy due to weakness Condition seems to be worsening 03/16/2020 The patient was seen and examined in medical telemetry unit She did not have any more nosebleeds since yesterday and she has been put back on aspirin, Plavix and heparin She remains very weak and lethargic since yesterday Denies any significant pain and/or distress Review of Systems Review of Systems: All systems reviewed and are unremarkable except as noted below Ear, Nose, Mouth, Throat: no epistaxis (Has had few episodes yesterday. Seems to be stopped now) Neurologic: Some dysarthria. Generally weak and lethargic Psychiatric: + anxiety and + confusion Physical Exam Physical Exam: Lying in bed comfortably but looks very ill Constitutional: + thin; no acute distress Eyes: PERRL, conjunctivae normal, anicteric sclerae ENMT: external ear and nose normal, oropharynx normal Nose: + epistaxis (Has been having recurrent epistaxis.Seems stopped since this morning) Neck: trachea midline, no thyromegaly Respiratory: no respiratory distress Auscultation: + diminished lung sounds and + crackles (Very few crackles at the bases) Cardiovascular: Rate/Rhythm: regular rate and regular rhythm Heart Sounds: no murmur Gastrointestinal (Abdomen): Inspection/Auscultation: abdomen not distended Percussion/Palpation: abdomen soft; abdomen nontender Musculoskeletal: No acute arthritis in any joint Neurologic: Alert and awake. Remains very weak and lethargic Lymphatic: no cervical or axillary lymphadenopathy Results & Data Results & [facility] ([facility]) Vital Signs (Past 12 Hours) Vital Signs Temp Pulse Pulse Resp BP BP Pulse Ox 03/16/20 15:45 36.9 C 103 H 18 147/83 H 96 03/16/20 15:29 107 H 03/16/20 12:20 36.4 C L 78 18 143/87 H 97 03/16/20 08:09 36.3 C L 81 16 158/90 H 98 03/16/20 07:15 72 Laboratory Results Short CBC 03/16/20 Range/Units 08:03 WBC 6.73 (4.8-10.8) K/uL Hgb 11.5 L (12.0-16.0) g/dL Hct 34.3 L (37-47) % Plt Count 202 (130-400) K/uL BMP 03/16/20 08:03 Sodium 137 Potassium 3.2 L Chloride 104 Carbon Dioxide 24 BUN 15 Creatinine 1.08 Glucose 92 Calcium 9.6 Medications Administered Current Inpatient Medications Acetaminophen (Acetaminophen 500 Mg Tab) 500 mg PO QID PRN PRN Reason: Pain Stop: 04/09/20 16:37 Last Admin: 03/16/20 03:51 Dose: 500 mg Documented by: Al Hydrox/Mg Hydrox/Simethicone (Aluminum/Magnesium Susp 30 Ml Udc) 15 ml PO Q4H PRN PRN Reason: Dyspepsia Stop: 04/09/20 12:41 Al Hydrox/Mg Hydrox/Simethicone (Aluminum/Magnesium Susp 30 Ml Udc) 15 ml PO Q6H PRN PRN Reason: Dyspepsia Stop: 04/14/20 08:55 Aspirin (Aspirin 81 Mg Ectab) [facility] Stop: 04/10/20 08:59 Last Admin: 03/16/20 08:01 Dose: 81 mg Documented by: Atorvastatin Calcium (Atorvastatin 40 Mg Tab) 80 mg PO [facility] Stop: 04/09/20 20:59 Last Admin: 03/15/20 20:12 Dose: 80 mg Documented by: Clopidogrel Bisulfate (Clopidogrel Bisulfate 75 Mg Tab) 75 mg PO DAILY [facility] Stop: 04/10/20 08:59 Last Admin: 03/13/20 08:07 Dose: 75 mg Documented by: Famotidine (Famotidine 20 Mg Tab) 20 mg PO BID [facility] Stop: 04/09/20 20:59 Last Admin: 03/16/20 07:59 Dose: 20 mg Documented by: Ferrous Sulfate (Ferrous Sulfate 325 Mg Tab) 325 mg PO DAILY [facility] Stop: 04/10/20 08:59 Last Admin: 03/16/20 07:59 Dose: 325 mg Documented by: Fish Oil ([place]-3 (Purified Fish Oil) 1 Gm Cap) 1 gm PO QAM [facility] Stop: 04/10/20 08:59 Last Admin: 03/16/20 08:00 Dose: 1 gm Documented by: Heparin Sodium (Porcine) (Heparin Sod 5,000 Unit/0.5 Ml Vial) 5,000 units SQ Q12 [facility] Stop: 04/15/20 20:59 Levetiracetam (Levetiracetam 500 Mg Tab) 500 mg PO BID [facility] Stop: 04/09/20 20:59 Last Admin: 03/16/20 07:59 Dose: 500 mg Documented by: Loratadine (Loratadine 10 Mg Tab) 10 mg PO DAILY [facility] Stop: 04/10/20 08:59 Last Admin: 03/16/20 07:59 Dose: 10 mg Documented by: Lorazepam (Lorazepam 0.5 Mg Tab) 0.5 mg PO Q8 PRN PRN Reason: Anxiety Stop: 04/09/20 13:16 Last Admin: 03/14/20 07:30 Dose: 0.5 mg Documented by: Magnesium Hydroxide (Magnesium Hydroxide Susp 30 Ml Udc) 30 ml PO Q12H PRN PRN Reason: Constipation Stop: 04/09/20 12:41 Metoprolol Succinate (Metoprolol Succ 50mg Ext Rel Tab) 50 mg PO DAILY [facility] Stop: 04/11/20 08:59 Last Admin: 03/16/20 07:59 Dose: 50 mg Documented by: Metoprolol Tartrate (Metoprolol Tartrate 1 Mg/Ml Vial) 5 mg IV Q4H PRN PRN Reason: tachycardia Stop: 04/09/20 14:14 Last Admin: 03/11/20 00:21 Dose: 5 mg Documented by: Miscellaneous Information (Pharmacist Discharge Med Rec Consult) 1 ea N/A UD PRN PRN Reason: Consult Stop: 04/09/20 12:52 Multivitamins (Multivitamin Tab) 1 tab PO QAM [facility] Stop: 04/10/20 08:59 Last Admin: 03/16/20 07:59 Dose: 1 tab Documented by: Ondansetron HCl (Ondansetron Inj 2 Mg/Ml 2 Ml Vial) 4 mg IV Q6H PRN PRN Reason: Nausea Stop: 04/13/20 08:30 Pantoprazole Sodium (Pantoprazole 40 Mg Tab) 40 mg PO DAILYBB [facility] Stop: 04/10/20 06:29 Last Admin: 03/16/20 05:47 Dose: 40 mg Documented by: Polyethylene Glycol (Polyethylene (Miralax) 17 Gm Pack) 17 gm PO DAILY PRN PRN Reason: Constipation Stop: 04/09/20 12:41 Sertraline HCl (Sertraline Hcl 50 Mg Tablet) 25 mg PO QAM [facility] Stop: 04/11/20 13:29 Last Admin: 03/16/20 07:59 Dose: 25 mg Documented by: Sodium Chloride (Sodium Chloride 0.65% Na Soln 45 Ml ([place])) 1 sprays NA TID PRN PRN Reason: Dryness Stop: 04/15/20 11:40 Timolol Maleate (Timolol Maleate 0.5% Op Soln 5 Ml Btl) 1 drops [facility] Stop: 04/10/20 08:59 Last Admin: 03/16/20 08:00 Dose: 1 drops Documented by: Vitamin D (Cholecalciferol 1,000 Units 25 Mcg Tab) 2,000 units PO DAILY [facility] Stop: 04/10/20 08:59 Last Admin: 03/16/20 07:59 Dose: 2,000 units Documented by:
[2020-03-16] MEDS: ATORVASTATIN 40 MG TAB PO SCH (21:22)
[2020-03-17] MEDS: PANTOprazole 40 MG TAB PO SCH (06:19)
[2020-03-17 08:16] LABS: Basophils # (auto) 0.01 K/uL (0-0.2); Basophils % (auto) 0.1 %; Eosinophils # (auto) 0.08 K/uL (0-0.5); Hematocrit (blood only) 34.4 % (37-47); Hemoglobin 11.6 g/dL (12.0-16.0); Immature Granulocytes # (auto) 0.01 K/uL (0.00-0.02); Immature Granulocytes % (auto) 0.1 %; Lymphocytes # (auto) 2.24 K/uL (1.2-3.4); Lymphocytes % (auto) 29.2 %; Mean Corpuscular Hemoglobin 33.2 pg (25-34); Mean Corpuscular Hgb Conc 33.7 g/dL (32-36); Mean Corpuscular Volume 98.6 fL (80-100); Monocytes # (auto) 0.62 K/uL (0.11-0.59); Monocytes % (auto) 8.1 %; Neutrophils # (auto) 4.71 K/uL (1.4-6.5); Neutrophils % (auto) 61.5 %; Platelet Count 227 K/uL (130-400); RDW Coefficient of Variation 12.1 % (11.5-14.5); RDW Standard Deviation 43.2 fL (36.4-46.3); Red Blood Count 3.49 M/uL (4.2-5.4); White Blood Count 7.67 K/uL (4.8-10.8)
[2020-03-17] MEDS: SERTRALINE HCL 50 MG TABLET PO SCH (08:36)
[2020-03-17] MEDS: METOPROLOL SUCC 50MG EXT REL TAB PO SCH (08:36)
[2020-03-17] MEDS: FAMOTIDINE 20 MG TAB PO SCH ×2 (08:36→20:18)
[2020-03-17] MEDS: CHOLECALCIFEROL 1,000 UNITS 25 MCG TAB PO SCH (08:36)
[2020-03-17] MEDS: FERROUS SULFATE 325 MG TAB PO SCH (08:36)
[2020-03-17] MEDS: LORATADINE 10 MG TAB PO SCH (08:36)
[2020-03-17] MEDS: MULTIVITAMIN TAB PO SCH (08:37)
[2020-03-17] MEDS: CLOPIDOGREL BISULFATE 75 MG TAB PO SCH (08:37)
[2020-03-17] MEDS: levETIRAcetam 500 MG TAB PO SCH ×2 (08:37→20:18)
[2020-03-17] MEDS: TIMOLOL MALEATE 0.5% OP SOLN 5 ML BTL OPL SCH (08:37)
[2020-03-17] MEDS: HEPARIN SOD 5,000 UNIT/0.5 ML VIAL SQ SCH (08:37)
[2020-03-17] MEDS: OMEGA-3 (PURIFIED FISH OIL) 1 GM CAP PO SCH (08:37)
[2020-03-17] MEDS ORDERED: ASPIRIN 81 MG CHEW ONE (08:39)
[2020-03-17] MEDS: ASPIRIN 81 MG ECTAB PO SCH (08:40)
[2020-03-17 08:44] LABS: BUN Creatinine Ratio 10.7 (10-20); Calcium 9.6 mg/dl (8.5-10.1); Creatinine Clr Calc Pharmacy 32.9 ml/min; Est GFR (African American) 54.3; Est GFR (Non-African American) 46.8; Potassium 3.9 mmol/L (3.5-5.1)
--- NOTE | 2020-03-17 14:55 | Hospitalist Progress Note ---
Date of Service March 17, 2020 Assessment & Plan (1) Stroke: Acute stroke with persistent dysarthria and some irritation/apathy and ?personality changes. Patient declines exam and appears angry/unwilling to discuss her case further tonight. Uncertain full range of deficits. Importantly she has not had any further epistaxis on the DAPT. Cont this and Lipitor. Dispo to SNF when bed available. (2) Epistaxis: No further bleeding on DAPT since heparin has been stopped. (3) PVD (peripheral vascular disease): chronic, extensive. Cont medical management with ASA, Plavix, Lipitor, Toprol. (4) Atrial ectopic tachycardia: Continue Toprol XL 50mg. Telemetry was reviewed and no events overnight. (5) Hypertension: restarting home aldactone and lasix 10mg in the morning. Started some amlodipine tonight,also as she is somewhat elevated. However, BP is being take in the leg which may cause some error in the readings. (6) COPD (chronic obstructive pulmonary disease): chronic, stable, does not appear to be in exacerbation. (7) Depression: Sertraline was initiated on 03/12. Consider stopping this if patient starts to become suicidal or exhibit worsening depression per black box warning on this medication. (8) Stage III chronic kidney disease: chronic, at baseline. Cont to avoid nephrotoxic medications. Restart home diuretic therapy in am. (9) DVT prophylaxis: Heparin stopped 2/2 epistaxis. SCDs/ambulation DNR/DNI Dispo-to SNF once authorization comes through. Alexandra Johnson DO [facility]ist Admission and Anticipated Discharge Date Admission Date: March 10, 2020 Subjective CC: stroke like symptoms, prolonged hospitalization 2/2 placement and epistaxis on antiplatelet therapy Patient is upset in general and has declined exam and conversation today She rolls her eyes at me when I questioned her regarding her status and asked her orientation questions She has some clear dysarthria present. When asked if this is worse or better she tells me that she is not the one to decide, and that continues to be her answer for most questions. She reports apathy if I speak to her regarding her care She became angry and stared at me when I started the physical exam, and before touching her she verbalized she was declining the exam. When I asked if she is depressed she shruged her shoulders and gave an unclear answer. She is on sertraline and I offered to increase this but she declined. Review of Systems Review of Systems: All systems reviewed & are unremarkable except as noted in Subjective Physical Exam Physical Exam: CONSTITUTIONAL: WNWD, vitals as above, generally ill- appearing. Patient declined formal physical exam, so this is based on my observation of her. EYES: declined exam. ENT: external ear and nose normal NECK: trachea midline RESPIRATORY: declined exam. CARDIOVASCULAR: declined exam. CHEST: declined exam. GASTROINTESTINAL: declined exam. MUSCULOSKELETAL: able to sit up independently in bed but appears generally weak. declined exam. SKIN: declined exam. NEUROLOGIC: declined exam. Dysarthria noted. PSYCHIATRIC: alert, not cooperative and oriented to self and place only. Doesn't remember date. Results & Data Results & Data ([facility]) Vital Signs (Past 12 Hours) Vital Signs Temp Pulse Resp BP BP BP Pulse Ox 03/17/20 13:19 36.5 C 76 18 150/88 H 94 03/17/20 07:21 36.8 C 92 H 17 175/89 H 98 03/17/20 03:40 36.4 C L 91 H 16 123/69 91 Laboratory Results Short CBC 03/17/20 Range/Units 07:42 WBC 7.67 (4.8-10.8) K/uL Hgb 11.6 L (12.0-16.0) g/dL Hct 34.4 L (37-47) % Plt Count 227 (130-400) K/uL BMP 03/17/20 07:42 Sodium 139 Potassium 3.9 D Chloride 107 Carbon Dioxide 24 BUN 13 Creatinine 1.17 Glucose 91 Calcium 9.6 Medications Administered Current Inpatient Medications Acetaminophen (Acetaminophen 500 Mg Tab) 500 mg PO QID PRN PRN Reason: Pain Stop: 04/09/20 16:37 Last Admin: 03/16/20 03:51 Dose: 500 mg Documented by: Al Hydrox/Mg Hydrox/Simethicone (Aluminum/Magnesium Susp 30 Ml Udc) 15 ml PO Q4H PRN PRN Reason: Dyspepsia Stop: 04/09/20 12:41 Al Hydrox/Mg Hydrox/Simethicone (Aluminum/Magnesium Susp 30 Ml Udc) 15 ml PO Q6H PRN PRN Reason: Dyspepsia Stop: 04/14/20 08:55 Aspirin (Aspirin 81 Mg Ectab) 81 mg PO QAM [facility] Stop: 04/10/20 08:59 Last Admin: 03/17/20 08:40 Dose: 81 mg Documented by: Atorvastatin Calcium (Atorvastatin 40 Mg Tab) 80 mg PO HS [facility] Stop: 04/09/20 20:59 Last Admin: 03/16/20 21:22 Dose: 80 mg Documented by: Clopidogrel Bisulfate (Clopidogrel Bisulfate 75 Mg Tab) 75 mg PO DAILY [facility] Stop: 04/10/20 08:59 Last Admin: 03/17/20 08:37 Dose: 75 mg Documented by: Famotidine (Famotidine 20 Mg Tab) 20 mg PO BID [facility] Stop: 04/09/20 20:59 Last Admin: 03/17/20 08:36 Dose: 20 mg Documented by: Ferrous Sulfate (Ferrous Sulfate 325 Mg Tab) 325 mg PO DAILY [facility] Stop: 04/10/20 08:59 Last Admin: 03/17/20 08:36 Dose: 325 mg Documented by: Fish Oil ([place]-3 (Purified Fish Oil) 1 Gm Cap) 1 gm PO QAM [facility] Stop: 04/10/20 08:59 Last Admin: 03/17/20 08:37 Dose: 1 gm Documented by: Heparin Sodium (Porcine) (Heparin Sod 5,000 Unit/0.5 Ml Vial) 5,000 units SQ Q12 [facility] Stop: 04/15/20 20:59 Last Admin: 03/17/20 08:37 Dose: 5,000 units Documented by: Levetiracetam (Levetiracetam 500 Mg Tab) 500 mg PO BID [facility] Stop: 04/09/20 20:59 Last Admin: 03/17/20 08:37 Dose: 500 mg Documented by: Loratadine (Loratadine 10 Mg Tab) 10 mg PO DAILY [facility] Stop: 04/10/20 08:59 Last Admin: 03/17/20 08:36 Dose: 10 mg Documented by: Lorazepam (Lorazepam 0.5 Mg Tab) 0.5 mg PO Q8 PRN PRN Reason: Anxiety Stop: 04/09/20 13:16 Last Admin: 03/14/20 07:30 Dose: 0.5 mg Documented by: Magnesium Hydroxide (Magnesium Hydroxide Susp 30 Ml Udc) 30 ml PO Q12H PRN PRN Reason: Constipation Stop: 04/09/20 12:41 Metoprolol Succinate (Metoprolol Succ 50mg Ext Rel Tab) 50 mg PO DAILY [facility] Stop: 04/11/20 08:59 Last Admin: 03/17/20 08:36 Dose: 50 mg Documented by: Metoprolol Tartrate (Metoprolol Tartrate 1 Mg/Ml Vial) 5 mg IV Q4H PRN PRN Reason: tachycardia Stop: 04/09/20 14:14 Last Admin: 03/11/20 00:21 Dose: 5 mg Documented by: Miscellaneous Information (Pharmacist Discharge Med Rec Consult) 1 ea N/A UD PRN PRN Reason: Consult Stop: 04/09/20 12:52 Multivitamins (Multivitamin Tab) 1 [facility] Stop: 04/10/20 08:59 Last Admin: 03/17/20 08:37 Dose: 1 tab Documented by: Ondansetron HCl (Ondansetron Inj 2 Mg/Ml 2 Ml Vial) 4 mg IV Q6H PRN PRN Reason: Nausea Stop: 04/13/20 08:30 Pantoprazole Sodium (Pantoprazole 40 Mg Tab) 40 mg PO DAILYBB [facility] Stop: 04/10/20 06:29 Last Admin: 03/17/20 06:19 Dose: 40 mg Documented by: Polyethylene Glycol (Polyethylene (Miralax) 17 Gm Pack) 17 gm PO DAILY PRN PRN Reason: Constipation Stop: 04/09/20 12:41 Sertraline HCl (Sertraline Hcl 50 Mg Tablet) 25 mg PO [facility]AC[facility] Stop: 04/11/20 13:29 Last Admin: 03/17/20 08:36 Dose: 25 mg Documented by: Sodium Chloride (Sodium Chloride 0.65% Na Soln 45 Ml ([place])) 1 sprays NA TID PRN PRN Reason: Dryness Stop: 04/15/20 11:40 Timolol Maleate (Timolol Maleate 0.5% Op Soln 5 Ml Btl) 1 drops OPL [facility]ACAR[facility] Stop: 04/10/20 08:59 Last Admin: 03/17/20 08:37 Dose: 1 drops Documented by: Vitamin D (Cholecalciferol 1,000 Units 25 Mcg Tab) 2,000 units PO DAILY [facility] Stop: 04/10/20 08:59 Last Admin: 03/17/20 08:36 Dose: 2,000 units Documented by:
[2020-03-17] MEDS: ATORVASTATIN 40 MG TAB PO SCH (20:18)
[2020-03-18] MEDS: PANTOprazole 40 MG TAB PO SCH (06:04)
[2020-03-18] MEDS: MULTIVITAMIN TAB PO SCH (07:32)
[2020-03-18] MEDS: CLOPIDOGREL BISULFATE 75 MG TAB PO SCH (07:33)
[2020-03-18] MEDS: FERROUS SULFATE 325 MG TAB PO SCH (07:33)
[2020-03-18] MEDS: SERTRALINE HCL 50 MG TABLET PO SCH (07:35)
[2020-03-18] MEDS: ASPIRIN 81 MG ECTAB PO SCH (07:36)
[2020-03-18] MEDS: OMEGA-3 (PURIFIED FISH OIL) 1 GM CAP PO SCH (07:36)
[2020-03-18] MEDS: LORATADINE 10 MG TAB PO SCH (07:36)
[2020-03-18] MEDS: CHOLECALCIFEROL 1,000 UNITS 25 MCG TAB PO SCH (07:37)
[2020-03-18] MEDS: levETIRAcetam 500 MG TAB PO SCH ×2 (07:37→20:33)
[2020-03-18] MEDS: FAMOTIDINE 20 MG TAB PO SCH ×2 (07:37→20:33)
[2020-03-18] MEDS: METOPROLOL SUCC 50MG EXT REL TAB PO SCH (07:38)
[2020-03-18] MEDS: TIMOLOL MALEATE 0.5% OP SOLN 5 ML BTL OPL SCH (07:38)
[2020-03-18] MEDS: ATORVASTATIN 40 MG TAB PO SCH (20:32)
[2020-03-18] MEDS: amLODIPine BESYLATE 5 MG TAB PO ONE ×2 (21:28→21:31)
[2020-03-19] MEDS: PANTOprazole 40 MG TAB PO SCH ×2 (06:14→06:17)
[2020-03-19] MEDS: CLOPIDOGREL BISULFATE 75 MG TAB PO SCH (07:26)
[2020-03-19] MEDS: FERROUS SULFATE 325 MG TAB PO SCH (07:26)
[2020-03-19] MEDS: CHOLECALCIFEROL 1,000 UNITS 25 MCG TAB PO SCH (07:26)
[2020-03-19] MEDS: METOPROLOL SUCC 50MG EXT REL TAB PO SCH (07:27)
[2020-03-19] MEDS: OMEGA-3 (PURIFIED FISH OIL) 1 GM CAP PO SCH (07:27)
[2020-03-19] MEDS: FAMOTIDINE 20 MG TAB PO SCH (07:28)
[2020-03-19] MEDS: SERTRALINE HCL 50 MG TABLET PO SCH (07:28)
[2020-03-19] MEDS: ASPIRIN 81 MG ECTAB PO SCH (07:28)
[2020-03-19] MEDS: levETIRAcetam 500 MG TAB PO SCH (07:29)
[2020-03-19] MEDS: LORATADINE 10 MG TAB PO SCH (07:30)
[2020-03-19] MEDS: TIMOLOL MALEATE 0.5% OP SOLN 5 ML BTL OPL SCH (07:30)
--- NOTE | 2020-03-19 08:37 | Hospitalist Progress Note ---
Date of Service March 18, 2020 Assessment & Plan (1) Stroke: Acute stroke with persistent dysarthria and some irritation/apathy and ?personality changes vs severe depression vs other cause for behavior issues. Patient declines exam and is unwilling to discuss her case further tonight. U ncertain full range of deficits. Per , she has been progressively becoming difficult to deal with at home, also. ?development of vascular dementia with her extensive cerebrovascular disease. Importantly she has not had any further epistaxis on the DAPT. Cont this and Lipitor. Dispo to SNF when bed available. (2) Depression: Sertraline was initiated on 03/12. Consider stopping this if patient starts to become suicidal or exhibit worsening depression per black box warning on this medication. Safe tray ordered. (3) Epistaxis: No further bleeding on DAPT since heparin has been stopped. (4) PVD (peripheral vascular disease): chronic, extensive. Cont medical management with ASA, Plavix, Lipitor, Toprol. (5) Atrial ectopic tachycardia: Continue Toprol XL 50mg. Telemetry was reviewed and no events overnight. (6) Hypertension: Aldactone/Lasix to start in am. Norvasc now. However, BP is being take in the leg which may cause some error in the readings. (7) COPD (chronic obstructive pulmonary disease): chronic, stable, does not appear to be in exacerbation. (8) Stage III chronic kidney disease: chronic, at baseline. Cont to avoid nephrotoxic medications. Restart home diuretic therapy in am. (9) DVT prophylaxis: Heparin stopped 2/2 epistaxis. SCDs/ambulation DNR/DNI Dispo-to SNF once authorization comes through. Discussed case with as above. We went through the details of the case and all questions were answered. I gave him expectations that were realistic including waiting until she gets through a short stint at rehab to see where she settles out wtih respect to any new deficits prior to making plans to change his housing arrangements. It will be very important to monitor her on this new sertraline drug, also. PCP follow- up recommended in one week to re-evaluate this and her blood pressure. DO [facility] Admission and Anticipated Discharge Date Admission Date: March 10, 2020 Subjective CC: stroke like symptoms, prolonged hospitalization 2/2 placement and epistaxis on antiplatelet therapy The patient is lying in bed and upon my entering and starting a conversation she declined and pulled the bedcovers over her head. Despite trying to talk with her for a few minutes she refused to look at me from under the blanket and would not respond. She was awake but unwilling to speak or engage. She was later seen walking in the hallways independently Nurse reported she declined her dinner and said "why do you keep doing this to me?" I spoke with by phone and we discussed short and alf expectations. All questions were answered. Plan for SNF when able. No further bleeding since stopping heparin. Review of Systems Review of Systems: Other (pt declined. ) Physical Exam Physical Exam: CONSTITUTIONAL: WNWD, vitals as above, NAD. Patient declined formal physical exam, so this is based on my observation of her. EYES: declined exam. ENT: external ear and nose normal NECK: trachea midline RESPIRATORY: declined exam. CARDIOVASCULAR: declined exam. CHEST: declined exam. GASTROINTESTINAL: declined exam. MUSCULOSKELETAL: unable to ascertain. She remained supine covered with blanket most of the time I was with her. declined exam. SKIN: declined exam. NEUROLOGIC: declined exam. She didn't speak enough to ascertain dysarthria and if there was any improvement here. PSYCHIATRIC: declined to speak with me. Results & Data Results & Data ([facility]) Vital Signs (Past 12 Hours) Vital Signs Temp Pulse Resp BP BP Pulse Ox 03/19/20 08:06 36.5 C 93 H 18 135/84 93 03/18/20 23:41 36.1 C L 75 16 124/77 92 03/18/20 21:31 157/70 H
[2020-03-19] MEDS ORDERED: FUROSEMIDE 20 MG TAB PO SCH (09:00)
[2020-03-19] MEDS ORDERED: SPIRONOLACTONE 12.5 MG TAB PO SCH (09:00)
[2020-03-19] MEDS ORDERED: amLODIPine BESYLATE 5 MG TAB PO SCH (09:00)
--- NOTE | 2020-03-21 10:50 | Discharge Summary ---
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 is at bedside. Her last known time well was prior to going to bed last evening around 10 PM. When she woke up had difficu lt time arousing patient in getting her to wake up. When she did wake up she was having difficulty moving right leg and right arm was tremulous. She also had worsened speech. She does have residual dysarthria at baseline secondary to prior CVAs; however, feels is worse. She also admits to intermittent worsening of vision. She has a very hard time describing it she denies any blurriness, double vision, scotomas. She denies any recent illness, fever, chills, sweats, lightheadedness, dizziness, chest pain, shortness breath, cough, hemoptysis, nausea, vomiting, abdominal pain. She denies any change in bowel or urinary habits. During event this morning she denies any loss of bowel or bladder control. denies any seizure activity. She was scheduled for EEG long-term and leads were placed, but she read these. She has recently established with [employer] at home. Patient admits appetite has been okay, but states her p.o. intake has decreased and decreased fluid intake. She does take medications, but did not take her aspirin Plavix this morning. Patient is very fatigued significant 12 hours a day and overall admits to change in mood. feels she is angry today. Patient states "I had a stroke again." Of significance patient was hospitalized 01/27 to 02/03/2020 secondary to left posterior occipital CVA. She was previously diagnosed with amaurosis fugax. At that time it was evident of her severe cerebrovascular atherosclerosis. She was seen and evaluated by vascular surgery who recommended surgical intervention; however patient declined at that time opted to pursue opinion in [place]. She was seen and evaluated in [place] and surgery was not recommended per family. At that time she was started on ASA and Plavix for 21 days on then chronic Plavix therapy. She was also seen in ED on 02/17 secondary to word finding difficulties and dysarthria which eventually resolved. Patient admission was recommended at that time but patient signed out AMA. In ED patient was severely hypertensive, current BP 188/107. CBC generally unremarkable, CMP revealed K2.9, creatinine 1.32, TSH 0.179, free T4 1.64. UA unremarkable. 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 Head CT revealed no acute intracranial process but did reveal old infarcts of left frontal with encephalomalacia and remote lacunar infarct. She failed dysphagia screen in ED and therefore did not receive any medication. Admission Exam Per Admitting Provider CONSTITUTIONAL: thin, frail, generally well-appearing EYES: pupils are round and equal bilaterally, normal conjunctivae, no scleral icterus ENT: external ear and nose normal, MMM RESPIRATORY: clear to auscultation bilaterally, no crackles, rales or wheezes, normal respiratory effort CARDIOVASCULAR: regular rate and rhythm, S1 and 2 heard without murmurs, gallops or rubs, no JVD, no peripheral edema CHEST: inspection of chest was normal GASTROINTESTINAL: soft, nontender, nondistended, no guarding MUSCULOSKELETAL: strength 5/5 throughout upper extremities, she didn't participate much in the testing of her lower extremities and was more interested in curling up under the blanket, direct support worker strength was intact bilaterally, head is normocephalic and atraumatic SKIN: warm and dry NEUROLOGIC: No facial palsy, minimal to no dysarthria greatly improved from last week. CN 2-12 grossly intact, no sensory deficit, normal cognition, normal speech PSYCHIATRIC: alert cooperative and oriented to person, place and time. Principal Diagnosis Stroke Depression Discharge Exam CONSTITUTIONAL: WNWD, vitals as above, NAD. Patient was uncooperative with formal physical exam, so this is based on my observation of her again. EYES: declined exam but pupils are round and equal bilaterally ENT: external ear and nose normal NECK: trachea midline RESPIRATORY: normal breath sounds without wheezing, rales or rhonchi throughout CARDIOVASCULAR: S1/2 heard without murmurs, rubs or gallops, reg rate and rhythm. GASTROINTESTINAL: declined exam. MUSCULOSKELETAL: unable to ascertain. She remained supine covered with blanket most of the time I was with her. She was able to move around the bed independently though. SKIN: warm and dry NEUROLOGIC: declined exam. Dysarthria still present. Becomes irritated with orientation questions but is answering questions appropriately most of the time. Discharge Data Allergies Allergy/AdvReac Type Severity Reaction Status Date / Time hydrocodone Allergy Intermediate CONFUSION Verified 03/10/20 08:06 ramipril Allergy Intermediate Nausea Verified 03/10/20 08:06 Sulfa (Sulfonamide Allergy Intermediate Nausea Verified 03/10/20 08:06 Antibiotics) Consultations 03/10/20 12:08 ED Decision to Admit Stat 03/10/20 12:42 Consult Neurology Routine 03/10/20 12:45 Consult Case Management - Discharge Planning Routine 03/10/20 12:54 Consult Case Management - Discharge Planning Routine 03/10/20 16:38 Consult Psychiatry Routine 03/14/20 06:18 Consult Otolaryngology (Head and Neck) Routine Hospital Course (1) Stroke: 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 Continues to have some persistent dysarthria and some irritation/apathy and ?personality changes vs severe depression vs other cause for behavior issues. She was started on sertraline 25mg PO daily this admission after being evaluated by psychiatry. ?development of vascular dementia with her extensive cerebrovascular and peripheral vascular disease. Developed severe epistaxis on DAPT plus heparin which improved off heparin. Cont DAPT and Lipitor. EEG performed this admission in the setting of initial altered mental state and question of seizure-like activity in the past with history of being started on Keppra. Changes in AED medication will defer to Neurology as outpatient on follow-up. Dispo to SNF at time of discharge. (2) Depression: Sertraline was initiated on 03/12. Consider stopping this if patient starts to become suicidal or exhibit worsening depression per black box warning on this medication. (3) Epistaxis: No further bleeding on DAPT since heparin has been stopped. (4) PVD (peripheral vascular disease): chronic, extensive. Cont medical management with ASA, Plavix, Lipitor, Toprol. (5) Atrial ectopic tachycardia: Continue Toprol XL 50mg. Total Time Total Time Spent Total Time Spent (In Minutes): 60 Total Time Includes: Examination of the Patient, Discharge Planning, Medication Reconciliation and Communication With Other Providers Discharge Plan Discharge Items Patient Disposition: Transfer [facility] Reason For Visit: STROKE LIKE SYMPTOMS Discharge Diagnosis: Stroke Depression Condition on Discharge: Good Activity: Resume your previous activity Non-emergency contact: Primary Care Provider Call non-emergency contact if: you have any medication questions, your symptoms worsen, your pain is not controlled and you have a fever Follow-up/Referrals: Sherwin Garcia MD [Primary Care Provider] - Diet: Heart Healthy Diet Texture: Easy to Chew Addtl Attending Provider Instructions: Please take all medications as instructed on discharge list below. You were started on sertraline 25mg daily during this admission. The effect of this medication will need to be monitored closely, and the drug titrated up to effect by your provider. For this reason and to ensure you are still doing well after discharge from the hospital, it is strongly recommended that you follow-up with your primary care provider within 1-2 weeks of discharge from the hospital. Your blood pressure should be repeated at this time, also, as new medication was started for you at discharge. Please follow-up with [facility] in 4-6 weeks for a follow-up of your stroke. It was a pleasure taking care of you! Please call if you have any questions or problems. You can reach a [facility] hospitalist on duty at [facility] 24 hours a day by calling [phone]. Take care of yourself. Alexandra Johnson DO [facility] Hospitalist Pending Studies at Discharge: No Stand-Alone Forms: My [facility] Skilled Items Patient informed of condition?: Yes DNR: Yes Discharge Level of Care: Skilled Communicable Disease: No Discharge Prognosis: Stable Lines: None Urinary Catheter: No Medications and DC Order Prescriptions: New amlodipine [Norvasc] 5 mg Tablet 5 mg PO QAM Qty: 30 RF: 1 sertraline 50 mg Tablet 25 mg PO QAM Qty: 30 RF: 0 Continued multivitamin Tablet 1 tab PO QAM RF: 0 atorvastatin 80 mg Tablet 80 mg PO HS RF: 0 furosemide [Lasix] 20 mg tablet 10 mg PO QAM RF: 0 acetaminophen [Tylenol Extra Strength] 500 mg Tablet 500 mg PO QID MDD 3G PRN (Reason: Pain) RF: 0 famotidine 20 mg tablet 20 mg PO BID RF: 0 acetaminophen [Tylenol] 325 mg Tablet 650 mg PO Q4H MDD 3G PRN (Reason: Fever) RF: 0 metoprolol succinate 50 mg tablet extended release 24 hr 50 mg PO QAM RF: 0 timolol maleate 0.5 % drops 1 drp OPL QAM RF: 0 spironolactone 25 mg tablet 12.5 mg PO QAM RF: 0 aspirin 81 mg Tablet,Delayed Release (Dr/Ec) 81 mg PO DAILY RF: 0 Vitron-C 65 mg iron- 125 mg tablet,delayed release (DR/EC) 1 tab PO DAILY RF: 0 cholecalciferol (vitamin D3) 50 mcg (2,000 unit) Capsule 50 mcg PO DAILY RF: 0 amoxicillin 500 mg Capsule 2,000 mg PO ONCE PRN (Reason: 1 HR PRIOR TO DENTAL APPT.) RF: 0 clopidogrel [Plavix] 75 mg Tablet 75 mg PO QAM RF: 0 pantoprazole [Protonix] 20 mg Tablet,Delayed Release (Dr/Ec) 20 mg PO DAILYBB RF: 0 loratadine [Claritin] 10 mg Tablet 10 mg PO DAILY RF: 0 levetiracetam 500 mg Tablet 500 mg PO BID RF: 0 Discontinued metoprolol succinate 25 mg Tablet Extended Release 24 Hr 25 mg PO DAILY RF: 0 Discharge Orders: Discharge Order (Routine); Ordered 03/19/20 Ordered By: Alexandra Johnson Admission Data Admit Date/Time: 03/10/20 14:18 Attending Provider: Alexandra Johnson Admit Provider: Lis Barber Primary Care Provider: Sherwin Garcia Other Providers: Olinda Kerns [place] ; Lis Barber ; Layne Davenport ; Ronn Lubin ; Layne Newell ; Ariel Prado ; Eugene Jones ; Grant Hidalgo ; Nahed Lai ; Ksenia Monae ; Brigido Ernst Other Interventions: Discharge Summary Assessment (RN) Last Done: 03/19/20 16:41
== END 2020-03-19 18:18 | DRG 65 ==
LOC: ED 07:30 → 2N 14:18 → SUATTDRO 14:18 → 2N 15:24

== ENCOUNTER 2020-03-21 13:45 | Inpatient (IN) ==
[2020-03-21] MEDS ORDERED: STAT IV Infusion **Titration per Protocol STA (14:29)
[2020-03-21] MEDS ORDERED: SODIUM CHLORIDE 0.9% 1000ML 1,000 ML IV ONE (14:29)
[2020-03-21 14:30] LABS: iSTAT Creatinine 1.2 mg/dl (0.6-1.3); iSTAT Hemoglobin 13.3 g/dl (12.0-16.0); iSTAT Ionized Calcium 1.06 mmol/l (1.12-1.32); iSTAT Potassium 4.2 mmol/L (3.3-5.0)
[2020-03-21] MEDS ORDERED: NOREPINEPHRINE/D5W 8 MG/508 ML BAG IV SCH (14:30)
[2020-03-21 14:42] LABS: Alanine Aminotransferase 36 U/L (12-78); Albumin Level 3.5 gm/dl (3.4-5.0); Aspartate Aminotransferase 58 U/L (15-37); BUN Creatinine Ratio 8.1 (10-20); Blood Urea Nitrogen 10 mg/dl (7-18); Carbon Dioxide 25 mmol/L (21-32); Chloride 104 mmol/L (98-107); Est GFR (African American) 52.1; Glucose 90 mg/dl (70-99); Magnesium 2.2 mg/dl (1.8-2.4); Potassium 4.1 mmol/L (3.5-5.1); Sodium 137 mmol/L (136-145)
[2020-03-21 15:21] LABS: Albumin Globulin Ratio 0.8 (0.9-2); Alkaline Phosphatase 61 U/L (45-117); Globulin 4.4 gm/dl (2.5-4.0); Thyroid Stimulating Hormone 0.531 uIu/ml (0.300-4.500); Total Protein 7.9 gm/dl (6.4-8.2); Troponin I 0.062 ng/ml (0-0.045)
[2020-03-21] MEDS ORDERED: OPTIRAY 320 125ml IV ONE (15:25)
--- NOTE | 2020-03-21 15:27 | CT Scan Report ---
CT head/brain wo con CLINICAL HISTORY: Head pain status post trauma. Weakness. COMPARISON STUDY: Head CT dated 03/10/2020 TECHNIQUE: Axial CT of the brain is performed from the vertex to the skull base. IV contrast was not administered for this examination. A dose lowering technique was utilized adhering to the principles of ALARA. CT DOSE: FINDINGS: No intra or extra-axial mass lesions are visualized. There is no CT evidence of acute cortical infarc tion. There is no evidence of midline shift. There is no acute hemorrhage. No calvarial fractures ar e visualized. There are moderate white matter hypodensities likely on a small vessel basis. There is an old left fr ontal lobe infarct There is no evidence of pathologic ventricular dilatation. There is chronic sphenoid sinus opacification with cemented sinus wall thickening. IMPRESSION: No acute intracranial findings ACT 112: Negative or not required by law. Electronically signed by: Jessee Harris M.D. 03/21/2020 3:26 PM
--- NOTE | 2020-03-21 15:32 | CT Scan Report ---
CT OF THE CERVICAL SPINE CLINICAL HISTORY: Neck pain status post trauma COMPARISON STUDY: December 2019 CT DOSE: 1601.65 mGy.cm TECHNIQUE: CT scan of the cervical spine was performed from the skull base to the thoracic inlet. Leigh ges are reviewed in the axial, sagittal, and coronal planes. IV contrast was not administered for thi s examination. A dose lowering technique was utilized adhering to the principles of ALARA. FINDINGS: The visualized portions of the lung apices reveal no evidence of pneumothorax. There is a stable 14 m m partially cystic left apical nodule. There is a left mastoid effusion The prevertebral soft tissues are normal. No fractures or subluxations are visualized. There are multilevel degenerative changes IMPRESSION: No evidence of acute fracture or traumatic subluxation. ACT 112: Negative or not required by law. Electronically signed by: Jessee Harris M.D. 03/21/2020 3:30 PM
--- NOTE | 2020-03-21 15:36 | CT Scan Report ---
CT ANGIOGRAM OF THE CHEST CLINICAL HISTORY: Hypotension. Weakness. Possible acute pulmonary embolism. Chest pain. COMPARISON STUDY: January 30, 2020 TECHNIQUE: Following the IV administration of 119 mL of Optiray-320, CT angiogram of the thorax was p erformed from the thoracic inlet to the lung bases utilizing the pulmonary embolus protocol. Images a re reviewed in the axial, sagittal, and coronal planes. IV contrast was administered without complica tion. MIP imaging was performed. A dose lowering technique was utilized adhering to the principles o f ALARA. CT DOSE: FINDINGS: No pathologically enlarged axillary mediastinal or hilar lymph nodes were visualized. There was no evidence of thoracic aortic dilatation. There were no pulmonary artery filling defects to indicate acute pulmonary embolism. No pleural effusions are visualized. There is persistent elevation of the left hemidiaphragm. There is pulmonary emphysema with subpleural reticulation. There is no pneumothorax. There is no focal pulmonary consolidation. There is occlusion/subtotal occlusion on the left subclavian artery. There is a high-grade stenosis o f the left common carotid origin. There is subtotal occlusion of the proximal right innominate artery . IMPRESSION: 1. No evidence of acute pulmonary embolism 2. Pulmonary emphysema with subpleural reticulation 3. Elevation left hemidiaphragm 4. Severe atherosclerotic disease with occlusion/subtotal occlusion of a left subclavian artery, crit ical high-grade stenosis of the left common carotid artery, and subtotal occlusion of a proximal righ t innominate artery. ACT 112: Negative or not required by law. Electronically signed by: Jessee Harris M.D. 03/21/2020 3:35 PM
--- NOTE | 2020-03-21 15:45 | CT Scan Report ---
CT abd pelvis IV con only CLINICAL HISTORY: Abdominal and back pain. Trauma. COMPARISON STUDY: 08/25/2018 TECHNIQUE: The patient was scanned in a dynamic helical fashion during intravenous administration of 119 cc of Optiray 320 A dose lowering technique was utilized adhering to the principles of ALARA. CT DOSE: FINDINGS: Lower chest: There is respiratory motion artifact. There is subpleural reticulation. There is elevati on left hemidiaphragm. There are no pleural effusions. There are coronary artery calcifications. Liver: The contrast-enhanced liver is normal in size, contour, and attenuation. There is no intrahepa tic biliary ductal dilatation. The hepatic veins and portal veins are patent. Gallbladder: Mildly distended. Spleen: Normal in size and attenuation. Pancreas: Unremarkable. Adrenal glands: Unremarkable. Kidneys: The right kidney is markedly atrophic. There is an 11 mm left renal hypodensity. Although ex ceeding water attenuation and is likely represents a cyst. Bowel: There are no transition zones to indicate bowel obstruction. There is no evidence of acute div erticulitis. There are scattered colonic diverticula present. The appendix appears normal. Peritoneum: There is no intraperitoneal free air or abdominal ascites. Vasculature: There is extensive aortoiliac atherosclerotic disease. There is suspected severe right r enal artery stenosis. Adenopathy: None. Pelvic viscera: There is mild distention of the bladder. Skeletal structures: There is a total left hip arthroplasty. No destructive lesions are visualized. D egenerative changes are present within the spine. IMPRESSION: 1. No evidence of acute intra-abdominal or pelvic injury 2. No evidence of bowel obstruction. No evidence of free air 3. Normal appendix 4. No evidence of acute diverticulitis 5. Mildly distended gallbladder 6. Mild bladder distention 7. Atrophic right kidney ACT 112: Negative or not required by law. Electronically signed by: Jessee Harris M.D. 03/21/2020 3:44 PM
--- NOTE | 2020-03-21 15:48 | XRay Report ---
XR chest 1V portable CLINICAL HISTORY: weakness COMPARISON STUDY: 03/10/2020 FINDINGS: The heart is the upper limits of normal in size. There is aortic tortuosity/ectasia. There is persistent elevation of left hemidiaphragm. There is progressive elevation of the interstitium. Th is could be secondary to either congestive failure, or a diffuse interstitial infectious/inflammatory process. Mild congestive failure is favored. Clinical and radiographic follow-up is recommended.[ IMPRESSION: 1. Progressive elevation of interstitium. While likely secondary to mild congestive failure, an inter stitial infectious/inflammatory process could appear similar. ACT 112: Negative or not required by law. Electronically signed by: Jessee Harris M.D. 03/21/2020 3:47 PM
[2020-03-21 16:17] LABS: Appearance Urine Clear (Clear); Bacteria Urine Automated Negative (Negative); Bilirubin Urine Negative (Negative); Blood Urine Negative (Negative); Cast Urine Automated 0 /lpf (0-5); Color Urine Yellow; Glucose Urine UA Negative (Negative); Ketones Urine Negative (Negative); Leukocyte Esterase Urine Negative (Negative); Nitrite Urine Negative (Negative); Protein Urine Trace (Negative); RBC Urine Automated 0-4 /hpf (0-4); Specific Gravity Urine 1.015 (1.000-1.030); Urobilinogen Urine Negative (Negative)
[2020-03-21] MEDS ORDERED: ASPIRIN 81 MG CHEW PO STA (16:18)
--- NOTE | 2020-03-21 16:23 | Emergency Department Note ---
Impression & Plan Hypertension, Fall, Elevated troponin ED Provider Note Provider: Ken Cash MD DATE OF SERVICE:03/21/2020 CHIEF COMPLAINT: Fall, weakness HISTORY OF PRESENT ILLNESS: Patient is a 70-year-old female recent history of hospitalization for stroke, peripheral vascular disease, carotid stenosis, hypertension, continued deficits regarding vision and voice from prior stroke presenting today the ambulance from her nursing facility reported with likely fall she was found on the floor between noon and 1230 and some possible increased right-sided weakness. Patient upon arrival here is difficult to get much of the history from. She is quite quiet and seems initially little bit confused when talking. EMS reports that they have noted some significant hypotension in the 60s here on her blood pressures. Patient self complains initially of some back discomfort. Patient denies chest pain or abdominal pain. She is confused and has some difficulty obtaining a clear history from her. Is unsure where exactly she was staying or where she is at right now. Does follow simple commands. REVIEW OF SYSTEMS: A total of 10 review of systems was obtained and negative except as stated above in the HPI. PAST MEDICAL HISTORY: As noted above MEDICATIONS: Reviewed home medication list. SOCIAL HISTORY: , recently hospitalized now at [facility] PHYSICAL EXAM: GENERAL: alert in no acute distress on stretcher Head: normocephalic and atraumatic EYES: No injection, discharge or icterus. PERRL NECK: Trachea midline. Supple. ENT: Mucous membranes pink and moist. LUNGS: Airway patent. No retractions. Breath sounds clear with good air entry bilaterally. HEART: Regular rate and rhythm. No chest wall tenderness ABDOMEN: Soft and non-tender, without guarding or rebound. SKIN: Acyanotic, slightly cool, dry, without rashes EXTREMITIES: Without swelling, tenderness or deformity with limited pulses in the bilateral radial arms. NEUROLOGICAL: No aphasia. No facial droop or slurred speech. Patient knows her name but is somewhat confused around current events and history. Follow simple commands. Seems to move all extremities but generally weak in all 4 extremities. EK beats per normal sinus rhythm without acute ST segment elevation or depression some scattered precordial T wave inversions are noted with a normal QTC and axis. CONTINUOUS CARDIAC MONITORING: was ordered and showed a heart rate of 90 bpm in sinus rhythm with occasional PVC Patient's laboratory studies and imaging reviewed. Differential includes Infection, dehydration, metabolic abnormality, hypo/hyperglycemia, electrolyte disturbance, anemia, hypoxia, cardiac sources, intracerebral event, toxicologic, neurologic, traumatic as well as other pathologies. IMPRESSION/MEDICAL DECISION MAKING: Patient presents being found on the floor at her facility questioning possibly some new weakness. Difficulty to truly appreciate significant weakness difference but is hard to get a history from the patient. At times she has some confused answer but does have an underlying history of some vascular dementia. CT the head without acute intra-cranial bleed or trauma noted. CT of the cervical spine as well as CT of the chest and abdomen pelvis was obtained. No evidence of acute traumatic injury. Significant vascular disease noted in the upper extremities and carotid artery. Patient initially noted to be significantly hypotensive with blood pressures on her upper arms. Transiently on norepinephrine ggt here however after about 10 minutes after further review of the medical records it appears the patient has significant stenosis in the upper extremities and blood pressure has to be taken on the thighs. This was done and the patient was actually significantly hypertensive. Vasopressors immediately turned off. Patient noted to have a mild troponin elevation with some scattered T wave inversions but no acute STEMI noted. Again the patient not clearly complaining of chest pain. Given a dose of aspirin here. Is on aspirin 81mg regularly. Doubt this is an acute NC but question possible demand and possibility of uncontrolled hypertension as her hypertension persisted fairly steady even after off pressors for more than an hour. Patient's later arrives and is brought into the room. Discussed with him findings in case. He states that she seems to be somewhat similar to how she was acting several weeks ago when she was last admitted. Do not feel at this time she is suffering from a severe acute stroke and a candidate at this time for TPA given her current clinical presentation. states due to current pandemic precautions has not seen her in about 2 weeks. Low suspicion this represents coronavirus at this time and basic antigen test was negative. Patient has had extensive prior neurological, cardiovascular, and psychiatric work-up and unfortunately she is suffering from some vascular dementia due to her strokes. Given the elevated troponin and uncontrolled hypertension as well as not a clear story of how exactly she ended up on the floor discussed with the hospital further observation here. Again no evidence of significant traumatic injury. Back pain is improved on reevaluation when discussing with her. Hospit alist familiar with the patient and was agreeable to evaluate her for further observation. DIAGNOSIS: Elevated troponin, hypertension, fall DISPOSITION: Hospitalist will evaluate Critical Care I have personally spent 36 minutes of critical care time in the direct managem ent of this patient. This includes bedside care, interpretation of diagnostic studies, and testing, discussion with consultants, patient, and family members, and other required patient management activities. These 36 minutes is in excess of all separately billable procedures. Past Med/Surg History Medical History Anemia HX OF ANEMIA Atrial ectopic tachycardia [place]em[place] FOLLOWS WITH DR CONDON - LAST SEEN WEEK OF 09/30 Carotid stenosis S/P LEFT CEA (2012)- FOLLOWS WITH [facility] IN [place] Chronic diastolic CHF (congestive heart failure) COPD (chronic obstructive pulmonary disease) GERD (gastroesophageal reflux disease) H/O gastric ulcer History of CVA (cerebrovascular accident) Hyperlipidemia Hypertension Prolonged Q-T interval on ECG PVD (peripheral vascular disease) Surgical History H/O exploratory laparotomy 08/25/2018. Done / perforated gastric ulcer. Flynn 3, Grade 1 view. 7.5 ETT placed. no issues. History of carotid endarterectomy LEFT CEA (2012) History of cataract extraction RIGHT AND LEFT History of hand surgery History of left hip replacement History of tonsillectomy Family History Other COPD (chronic obstructive pulmonary disease) Kidney disease Social History Smoking Status: Former smoker Tobacco Type: Cigarettes Years Smoked: 30; Smoking End Date: 1997; Second Hand Exposure: No; Do You Dip or Chew Tobacco: No; Tobacco Cessation Education Requested by Patient: No Hx Alcohol Use: Yes Alcohol type: wine Alcohol Intake Frequency: 2-4 x/Month Hx Substance Use: No Preferred Language: Finnish Communication Ability: Effective Visual Impairment: No Limitations Chute Tapper Required: No Beliefs That Will Affect Care: None marital status: Current Living Situation: Personal Care Facility Current Living Situation Comment: [facility]. Other Information That Helps Us Care for You: No Feels Safe at Home: Yes Safety Concerns: Feels Safe At This Time Assistive Devices: None Allergies Allergies Allergy/AdvReac Type Severity Reaction Status Date / Time hydrocodone Allergy Intermediate CONFUSION Verified 03/10/20 08:06 ramipril Allergy Intermediate Nausea Verified 03/10/20 08:06 Sulfa (Sulfonamide Allergy Intermediate Nausea Verified 03/10/20 08:06 Antibiotics) Home Meds Home Medications Medication Instructions Recorded Confirmed atorvastatin 80 mg PO HS 02/22/18 03/21/20 multivitamin 1 tab PO QAM 02/22/18 03/21/20 timolol maleate 1 drp OPL QAM 08/21/18 03/21/20 acetaminophen [Tylenol Extra 500 mg PO QID PRN MDD 3G 10/10/18 03/21/20 Strength] furosemide [Lasix] 10 mg PO QAM 11/14/18 03/21/20 famotidine 20 mg PO BID 01/23/20 03/21/20 Vitron-C 1 tab PO DAILY 01/28/20 03/21/20 aspirin 81 mg PO DAILY 01/28/20 03/21/20 cholecalciferol (vitamin D3) 50 mcg PO DAILY 01/28/20 03/21/20 spironolactone 12.5 mg PO QAM 01/28/20 03/21/20 amoxicillin 2,000 mg PO ONCE PRN 02/18/20 03/21/20 clopidogrel [Plavix] 75 mg PO QAM 02/18/20 03/21/20 loratadine [Claritin] 10 mg PO DAILY 02/18/20 03/21/20 pantoprazole [Protonix] 20 mg PO DAILYBB 02/18/20 03/21/20 levetiracetam 500 mg PO BID 03/10/20 03/21/20 acetaminophen [Tylenol] 650 mg PO Q4H PRN MDD 3G 03/21/20 03/21/20 metoprolol succinate 50 mg PO QAM 03/21/20 03/21/20 Previous Rx's Medication Instructions Recorded amlodipine [Norvasc] 5 mg PO QAM #30 tab 03/19/20 sertraline 25 mg PO QAM #30 tab 03/19/20 Results & Data (ED) Vital Signs Vital Signs - 24 hr 03/21/20 13:45 03/21/20 13:48 03/21/20 13:50 Pulse Rate 94 H 90 90 Pulse Rate [Left Finger] Pulse Rate from SpO2 Sensor Respiratory Rate 16 20 21 Respiratory Effort / Characteristics Non-Labored Respiratory Depth Normal Blood Pressure 100/75 100/75 Blood Pressure [Left Thigh] Blood Pressure [Right Arm] Blood Pressure Mean 83 94 Blood Pressure Mean [Left Thigh] Blood Pressure Mean [Right Arm] Pulse Oximetry Oxygen Delivery Method Room Air Sepsis Recent Fever Within 48 Hours No Sepsis New/Unexplained Change in Mental Status Yes Sepsis Action Taken by Nursing No Action Required 03/21/20 13:59 03/21/20 14:00 03/21/20 14:08 Pulse Rate 86 92 H Pulse Rate [Left Finger] 92 H Pulse Rate from SpO2 Sensor Respiratory Rate 20 20 18 Respiratory Effort / Characteristics Non-Labored Respiratory Depth Normal Blood Pressure Blood Pressure [Left Thigh] Blood Pressure [Right Arm] 75/45 L Blood Pressure Mean Blood Pressure Mean [Left Thigh] Blood Pressure Mean [Right Arm] 55 Pulse Oximetry Oxygen Delivery Method Room Air Sepsis Recent Fever Within 48 Hours Sepsis New/Unexplained Change in Mental Status Sepsis Action Taken by Nursing 03/21/20 14:10 03/21/20 14:14 03/21/20 14:16 Pulse Rate 92 H 93 H 84 Pulse Rate [Left Finger] Pulse Rate from SpO2 Sensor Respiratory Rate 21 20 27 H Respiratory Effort / Characteristics Respiratory Depth Blood Pressure 75/45 L 79/48 L Blood Pressure [Left Thigh] Blood Pressure [Right Arm] Blood Pressure Mean 71 54 Blood Pressure Mean [Left Thigh] Blood Pressure Mean [Right Arm] Pulse Oximetry Oxygen Delivery Method Sepsis Recent Fever Within 48 Hours Sepsis New/Unexplained Change in Mental Status Sepsis Action Taken by Nursing 03/21/20 14:19 03/21/20 14:21 03/21/20 14:22 Pulse Rate 94 H 79 92 H Pulse Rate [Left Finger] Pulse Rate from SpO2 Sensor Respiratory Rate 20 20 20 Respiratory Effort / Characteristics Respiratory Depth Blood Pressure Blood Pressure [Left Thigh] Blood Pressure [Right Arm] Blood Pressure Mean 47 47 Blood Pressure Mean [Left Thigh] Blood Pressure Mean [Right Arm] Pulse Oximetry Oxygen Delivery Method Sepsis Recent Fever Within 48 Hours Sepsis New/Unexplained Change in Mental Status Sepsis Action Taken by Nursing 03/21/20 14:27 03/21/20 14:28 03/21/20 14:30 Pulse Rate 89 90 Pulse Rate [Left Finger] Pulse Rate from SpO2 Sensor Respiratory Rate 18 20 Respiratory Effort / Characteristics Respiratory Depth Blood Pressure 50/39 L 49/42 L Blood Pressure [Left Thigh] Blood Pressure [Right Arm] 50/39 L Blood Pressure Mean 44 45 Blood Pressure Mean [Left Thigh] Blood Pressure Mean [Right Arm] 42 Pulse Oximetry Oxygen Delivery Method Sepsis Recent Fever Within 48 Hours Sepsis New/Unexplained Change in Mental Status Sepsis Action Taken by Nursing 03/21/20 14:40 03/21/20 14:41 03/21/20 14:44 Pulse Rate 88 91 H Pulse Rate [Left Finger] 88 Pulse Rate from SpO2 Sensor Respiratory Rate 18 19 20 Respiratory Effort / Characteristics Respiratory Depth Normal Blood Pressure 58/41 L Blood Pressure [Left Thigh] Blood Pressure [Right Arm] 58/41 L Blood Pressure Mean 43 41 Blood Pressure Mean [Left Thigh] Blood Pressure Mean [Right Arm] 46 Pulse Oximetry Oxygen Delivery Method Sepsis Recent Fever Within 48 Hours Sepsis New/Unexplained Change in Mental Status Sepsis Action Taken by Nursing 03/21/20 14:46 03/21/20 14:50 03/21/20 14:57 Pulse Rate 92 H 88 99 H Pulse Rate [Left Finger] 97 H Pulse Rate from SpO2 Sensor Respiratory Rate 20 21 29 H Respiratory Effort / Characteristics Respiratory Depth Blood Pressure 57/48 L 158/69 H Blood Pressure [Left Thigh] Blood Pressure [Right Arm] 57/48 L Blood Pressure Mean 53 86 Blood Pressure Mean [Left Thigh] Blood Pressure Mean [Right Arm] 51 Pulse Oximetry Oxygen Delivery Method Sepsis Recent Fever Within 48 Hours Sepsis New/Unexplained Change in Mental Status Sepsis Action Taken by Nursing 03/21/20 14:58 03/21/20 15:00 03/21/20 15:01 Pulse Rate 96 H 90 Pulse Rate [Left Finger] 95 H Pulse Rate from SpO2 Sensor Respiratory Rate 20 17 23 Respiratory Effort / Characteristics Respiratory Depth Blood Pressure 141/115 H Blood Pressure [Left Thigh] 158/69 H Blood Pressure [Right Arm] Blood Pressure Mean 117 Blood Pressure Mean [Left Thigh] 98 Blood Pressure Mean [Right Arm] Pulse Oximetry Oxygen Delivery Method Sepsis Recent Fever Within 48 Hours Sepsis New/Unexplained Change in Mental Status Sepsis Action Taken by Nursing 03/21/20 15:25 03/21/20 15:29 03/21/20 15:30 Pulse Rate 100 H 107 H 96 H Pulse Rate [Left Finger] Pulse Rate from SpO2 Sensor Respiratory Rate 17 24 24 Respiratory Effort / Characteristics Respiratory Depth Blood Pressure 223/107 H Blood Pressure [Left Thigh] Blood Pressure [Right Arm] Blood Pressure Mean 127 Blood Pressure Mean [Left Thigh] Blood Pressure Mean [Right Arm] Pulse Oximetry Oxygen Delivery Method Sepsis Recent Fever Within 48 Hours Sepsis New/Unexplained Change in Mental Status Sepsis Action Taken by Nursing 03/21/20 15:40 03/21/20 15:46 03/21/20 15:50 Pulse Rate 98 H 97 H 91 H Pulse Rate [Left Finger] Pulse Rate from SpO2 Sensor 95 H 90 Respiratory Rate 20 24 24 Respiratory Effort / Characteristics Respiratory Depth Blood Pressure 201/105 H Blood Pressure [Left Thigh] Blood Pressure [Right Arm] Blood Pressure Mean 135 Blood Pressure Mean [Left Thigh] Blood Pressure Mean [Right Arm] Pulse Oximetry 94 95 Oxygen Delivery Method Sepsis Recent Fever Within 48 Hours Sepsis New/Unexplained Change in Mental Status Sepsis Action Taken by Nursing 03/21/20 16:00 03/21/20 16:01 03/21/20 16:10 Pulse Rate 88 90 85 Pulse Rate [Left Finger] Pulse Rate from SpO2 Sensor 95 H 91 H 87 Respiratory Rate 21 18 22 Respiratory Effort / Characteristics Respiratory Depth Blood Pressure 156/73 H Blood Pressure [Left Thigh] Blood Pressure [Right Arm] Blood Pressure Mean 98 Blood Pressure Mean [Left Thigh] Blood Pressure Mean [Right Arm] Pulse Oximetry 95 97 95 Oxygen Delivery Method Sepsis Recent Fever Within 48 Hours Sepsis New/Unexplained Change in Mental Status Sepsis Action Taken by Nursing 03/21/20 16:15 03/21/20 16:20 03/21/20 16:30 Pulse Rate 86 97 H 86 Pulse Rate [Left Finger] Pulse Rate from SpO2 Sensor 86 87 Respiratory Rate 20 18 22 Respiratory Effort / Characteristics Respiratory Depth Blood Pressure 137/85 Blood Pressure [Left Thigh] Blood Pressure [Right Arm] Blood Pressure Mean 98 Blood Pressure Mean [Left Thigh] Blood Pressure Mean [Right Arm] Pulse Oximetry 99 97 Oxygen Delivery Method Room Air Sepsis Recent Fever Within 48 Hours Sepsis New/Unexplained Change in Mental Status Sepsis Action Taken by Nursing 03/21/20 16:47 03/21/20 17:00 03/21/20 17:01 Pulse Rate 94 H 85 85 Pulse Rate [Left Finger] Pulse Rate from SpO2 Sensor 95 H 103 H 86 Respiratory Rate 20 25 H 23 Respiratory Effort / Characteristics Respiratory Depth Blood Pressure 196/100 H 172/93 H Blood Pressure [Left Thigh] Blood Pressure [Right Arm] Blood Pressure Mean 115 98 Blood Pressure Mean [Left Thigh] Blood Pressure Mean [Right Arm] Pulse Oximetry 96 96 98 Oxygen Delivery Method Room Air Room Air Room Air Sepsis Recent Fever Within 48 Hours Sepsis New/Unexplained Change in Mental Status Sepsis Action Taken by Nursing Laboratory Data Result diagrams: 03/21/20 16:22 03/21/20 14:10 Lab Results 03/21/20 03/21/20 03/21/20 Range/Units 14:10 14:10 14:15 WBC (4.8-10.8) K/uL RBC (4.2-5.4) M/uL Hgb (12.0-16.0) g/dL POC Hgb 13.3 (12.0-16.0) g/dl Hct (37-47) % POC Hct 39 (37-47) % MCV (80-100) fL MCH (25-34) pg MCHC (32-36) g/dL RDW Std Deviation (36.4-46.3) fL RDW Coeff of Lyssa (11.5-14.5) % Plt Count (130-400) K/uL MPV (7.4-10.4) fL Immature Gran % (Auto) % Neut % (Auto) % Lymph % (Auto) % [place] % (Auto) % Eos % (Auto) % Baso % (Auto) % Neut # (Auto) (1.4-6.5) K/uL Lymph # (Auto) (1.2-3.4) K/uL [place] # (Auto) (0.11-0.59) K/uL Eos # (Auto) (0-0.5) K/uL Baso # (Auto) (0-0.2) K/uL Immature Gran # (Auto) (0.00-0.02) K/uL PT (9.0-12.0) Seconds INR (0.9-1.1) POC Sodium 137 (135-144) mmol/L Sodium 137 (136-145) mmol/L POC Potassium 4.2 (3.3-5.0) mmol/L Potassium 4.1 (3.5-5.1) mmol/L POC Chloride 103 (101-112) mmol/L Chloride 104 (98-107) mmol/L Carbon Dioxide 25 (21-32) mmol/L POC Total CO2 23 L (24-31) mmol/L Anion Gap 8.0 (3-11) POC Anion Gap 17.0 (16-25) mmol/L POC BUN 10 (7-18) mg/dl BUN 10 (7-18) mg/dl Creatinine 1.21 H (0.6-1.2) mg/dl POC Creatinine 1.2 (0.6-1.3) mg/dl Est Cr Clr Drug Dosing Not Reportable Est GFR ( Amer) 52.1 Est GFR (Non-Af Amer) 45.0 BUN/Creatinine Ratio 8.1 L (10-20) Glucose 90 (70-99) mg/dl POC Glucose 76 (70-99) mg/dl POC Glucose (other) 91 (70-99) mg/dl Lactate Calcium 9.0 (8.5-10.1) mg/dl POC Ioniz Calcium Hubert 1.06 L (1.12-1.32) mmol/l Magnesium 2.2 (1.8-2.4) mg/dl Total Bilirubin 1.0 (0.2-1) mg/dl AST 58 H (15-37) U/L ALT 36 (12-78) U/L Alkaline Phosphatase 61 (45-117) U/L Troponin I 0.062 H* (0-0.045) ng/ml Total Protein 7.9 (6.4-8.2) gm/dl Albumin 3.5 (3.4-5.0) gm/dl Globulin 4.4 H (2.5-4.0) gm/dl Albumin/Globulin Ratio 0.8 L (0.9-2) TSH 0.531 (0.300-4.500) uIu/ml Urine Color Urine Appearance (Clear) Urine pH (4.5-7.5) Ur Specific Irving (1.000-1.030) Urine Protein (Negative) Urine Glucose (UA) (Negative) Urine Ketones (Negative) Urine Blood (Negative) Urine Nitrite (Negative) Urine Bilirubin (Negative) Urine Urobilinogen (Negative) Ur Leukocyte Esterase (Negative) Urine WBC (Auto) (0-5) /hpf Urine RBC (Auto) (0-4) /hpf U Hyaline Cast (Auto) (0-5) /lpf U Epithel Cells (Auto) (0-5) /lpf Urine Bacteria (Auto) (Negative) SARS-CoV-2 Ag (Rapid) (Negative) 03/21/20 03/21/20 03/21/20 Range/Units 15:51 16:22 16:40 WBC 6.17 (4.8-10.8) K/uL RBC 3.78 L (4.2-5.4) M/uL Hgb 12.0 (12.0-16.0) g/dL POC Hgb (12.0-16.0) g/dl Hct 37.3 (37-47) % POC Hct (37-47) % MCV 98.7 (80-100) fL MCH 31.7 (25-34) pg MCHC 32.2 (32-36) g/dL RDW Std Deviation 44.0 (36.4-46.3) fL RDW Coeff of Lyssa 12.4 (11.5-14.5) % Plt Count 230 (130-400) K/uL MPV 9.8 (7.4-10.4) fL Immature Gran % (Auto) 0.8 % Neut % (Auto) 78.0 % Lymph % (Auto) 14.9 % [place] % (Auto) 5.5 % Eos % (Auto) 0.5 % Baso % (Auto) 0.3 % Neut # (Auto) 4.81 (1.4-6.5) K/uL Lymph # (Auto) 0.92 L (1.2-3.4) K/uL [place] # (Auto) 0.34 (0.11-0.59) K/uL Eos # (Auto) 0.03 (0-0.5) K/uL Baso # (Auto) 0.02 (0-0.2) K/uL Immature Gran # (Auto) 0.05 H (0.00-0.02) K/uL PT 11.8 (9.0-12.0) Seconds INR 1.1 (0.9-1.1) POC Sodium (135-144) mmol/L Sodium (136-145) mmol/L POC Potassium (3.3-5.0) mmol/L Potassium (3.5-5.1) mmol/L POC Chloride (101-112) mmol/L Chloride (98-107) mmol/L Carbon Dioxide (21-32) mmol/L POC Total CO2 (24-31) mmol/L Anion Gap (3-11) POC Anion Gap (16-25) mmol/L POC BUN (7-18) mg/dl BUN (7-18) mg/dl Creatinine (0.6-1.2) mg/dl POC Creatinine (0.6-1.3) mg/dl Est Cr Clr Drug Dosing Est GFR ( Amer) Est GFR (Non-Af Amer) BUN/Creatinine Ratio (10-20) Glucose (70-99) mg/dl POC Glucose (70-99) mg/dl POC Glucose (other) (70-99) mg/dl Lactate Calcium (8.5-10.1) mg/dl POC Ioniz Calcium Hubert (1.12-1.32) mmol/l Magnesium (1.8-2.4) mg/dl Total Bilirubin (0.2-1) mg/dl AST (15-37) U/L ALT (12-78) U/L Alkaline Phosphatase (45-117) U/L Troponin I (0-0.045) ng/ml Total Protein (6.4-8.2) gm/dl Albumin (3.4-5.0) gm/dl Globulin (2.5-4.0) gm/dl Albumin/Globulin Ratio (0.9-2) TSH (0.300-4.500) uIu/ml Urine Color Yellow Urine Appearance Clear (Clear) Urine pH 6.0 (4.5-7.5) Ur Specific [place] 1.015 (1.000-1.030) Urine Protein Trace H (Negative) Urine Glucose (UA) Negative (Negative) Urine Ketones Negative (Negative) Urine Blood Negative (Negative) Urine Nitrite Negative (Negative) Urine Bilirubin Negative (Negative) Urine Urobilinogen Negative (Negative) Ur Leukocyte Esterase Negative (Negative) Urine WBC (Auto) 1-5 (0-5) /hpf Urine RBC (Auto) 0-4 (0-4) /hpf U Hyaline Cast (Auto) 0 (0-5) /lpf U Epithel Cells (Auto) 5-10 H (0-5) /lpf Urine Bacteria (Auto) Negative (Negative) SARS-CoV-2 Ag (Rapid) (Negative) 03/21/20 03/21/20 Range/Units 16:40 17:09 WBC (4.8-10.8) K/uL RBC (4.2-5.4) M/uL Hgb (12.0-16.0) g/dL POC Hgb (12.0-16.0) g/dl Hct (37-47) % POC Hct (37-47) % MCV (80-100) fL MCH (25-34) pg MCHC (32-36) g/dL RDW Std Deviation (36.4-46.3) fL RDW Coeff of Lyssa (11.5-14.5) % Plt Count (130-400) K/uL MPV (7.4-10.4) fL Immature Gran % (Auto) % Neut % (Auto) % Lymph % (Auto) % [place] % (Auto) % Eos % (Auto) % Baso % (Auto) % Neut # (Auto) (1.4-6.5) K/uL Lymph # (Auto) (1.2-3.4) K/uL [place] # (Auto) (0.11-0.59) K/uL Eos # (Auto) (0-0.5) K/uL Baso # (Auto) (0-0.2) K/uL Immature Gran # (Auto) (0.00-0.02) K/uL PT (9.0-12.0) Seconds INR (0.9-1.1) POC Sodium (135-144) mmol/L Sodium (136-145) mmol/L POC Potassium (3.3-5.0) mmol/L Potassium (3.5-5.1) mmol/L POC Chloride (101-112) mmol/L Chloride (98-107) mmol/L Carbon Dioxide (21-32) mmol/L POC Total CO2 (24-31) mmol/L Anion Gap (3-11) POC Anion Gap (16-25) mmol/L POC BUN (7-18) mg/dl BUN (7-18) mg/dl Creatinine (0.6-1.2) mg/dl POC Creatinine (0.6-1.3) mg/dl Est Cr Clr Drug Dosing Est GFR ( Amer) Est GFR (Non-Af Amer) BUN/Creatinine Ratio (10-20) Glucose (70-99) mg/dl POC Glucose (70-99) mg/dl POC Glucose (other) (70-99) mg/dl Lactate Cancelled Calcium (8.5-10.1) mg/dl POC Ioniz Calcium Hubert (1.12-1.32) mmol/l Magnesium (1.8-2.4) mg/dl Total Bilirubin (0.2-1) mg/dl AST (15-37) U/L ALT (12-78) U/L Alkaline Phosphatase (45-117) U/L Troponin I (0-0.045) ng/ml Total Protein (6.4-8.2) gm/dl Albumin (3.4-5.0) gm/dl Globulin (2.5-4.0) gm/dl Albumin/Globulin Ratio (0.9-2) TSH (0.300-4.500) uIu/ml Urine Color Urine Appearance (Clear) Urine pH (4.5-7.5) Ur Specific [place] (1.000-1.030) Urine Protein (Negative) Urine Glucose (UA) (Negative) Urine Ketones (Negative) Urine Blood (Negative) Urine Nitrite (Negative) Urine Bilirubin (Negative) Urine Urobilinogen (Negative) Ur Leukocyte Esterase (Negative) Urine WBC (Auto) (0-5) /hpf Urine RBC (Auto) (0-4) /hpf U Hyaline Cast (Auto) (0-5) /lpf U Epithel Cells (Auto) (0-5) /lpf Urine Bacteria (Auto) (Negative) SARS-CoV-2 Ag (Rapid) Negative (Negative) Administered Medications Discontinued Medications Aspirin (Aspirin 81 Mg Chew) 324 mg PO NOW STA Stop: 03/21/20 16:19 Last Admin: 03/21/20 16:45 Dose: 324 mg Documented by: [id number] Norepinephrine Bitartrate (Levophed/D5w) 8 mg in 508 mls @ 9.296 mls/hr IV .Q24H [facility]; Protocol Stop: 04/20/20 14:29 Last Titration: 03/21/20 15:04 Dose: 0 mcg/kg/min, 0 mls/hr Documented by: [id number] Titration: 03/21/20 14:48 Dose: 0.12 mcg/kg/min, 22.3 mls/hr Documented by: [id number] Admin: 03/21/20 14:38 Dose: 0.05 mcg/kg/min, 9.3 mls/hr Documented by: [id number] Cosigned by: [id number] Sodium Chloride (Nss 1000ml) 1,000 mls @ 999 mls/hr IV .Q1H1M ONE Stop: 03/21/20 15:29 Last Infusion: 03/21/20 15:32 Dose: 0 mls/hr Documented by: [id number] Admin: 03/21/20 14:30 Dose: 999 mls/hr Documented by: [id number] Ioversol (Optiray 320 125ml) 119 ml IV ONCE ONE Stop: 03/21/20 15:26 Last Admin: 03/21/20 15:25 Dose: 119 ml Documented by: [id number] Miscellaneous (Stat Iv Infusion Titration Per Protocol) 1 ea N/A NOW STA Stop: 03/21/20 14:30 Last Admin: 03/21/20 14:39 Dose: 1 ea Documented by: [id number] Discharge Plan Visit Data Chief Complaint: Altered Mental Status ED Provider: Ken Cash Discharge Problem: Hypertension, Fall, Elevated troponin Patient Disposition: Admitted As Inpatient Discharge Instructions Interventions: ED Discharge Assessment Last Done: 03/21/20 18:41 Discharge Problem: Hypertension Qualifiers: Hypertension type: unspecified Qualified Code(s): I10 - Essential (primary) hypertension Fall Qualifiers: Encounter type: initial encounter Qualified Code(s): W19.XXXA - Unspecified fall, initial encounter
[2020-03-21 16:28] LABS: Basophils # (auto) 0.02 K/uL (0-0.2); Basophils % (auto) 0.3 %; Eosinophils # (auto) 0.03 K/uL (0-0.5); Eosinophils % (auto) 0.5 %; Hematocrit (blood only) 37.3 % (37-47); Immature Granulocytes # (auto) 0.05 K/uL (0.00-0.02); Immature Granulocytes % (auto) 0.8 %; Lymphocytes # (auto) 0.92 K/uL (1.2-3.4); Lymphocytes % (auto) 14.9 %; Mean Corpuscular Hemoglobin 31.7 pg (25-34); Mean Corpuscular Hgb Conc 32.2 g/dL (32-36); Mean Corpuscular Volume 98.7 fL (80-100); Mean Platelet Volume 9.8 fL (7.4-10.4); Monocytes # (auto) 0.34 K/uL (0.11-0.59); Monocytes % (auto) 5.5 %; Neutrophils # (auto) 4.81 K/uL (1.4-6.5); Platelet Count 230 K/uL (130-400); RDW Coefficient of Variation 12.4 % (11.5-14.5); Red Blood Count 3.78 M/uL (4.2-5.4); White Blood Count 6.17 K/uL (4.8-10.8)
[2020-03-21 17:03] LABS: INR 1.1 (0.9-1.1); Prothrombin Time 11.8 Seconds (9.0-12.0)
--- NOTE | 2020-03-21 17:26 | History & Physical Report ---
Date of Service March 21, 2020 Assessment & Plan (1) Fall: Nontraumatic, and she didn't lose consciousness. Unwitnessed fall but nurses quickly responded at the facility. Workup with imaging in the ER was negative including repeat head CT, and she denies any new pain or issues. She was acutally sent over for nonreactive pupils, which are equal in fact. And she appears neurologically improved without focal deficits outside of her memory since she was last seen here on Sunday. Would reassess her abilities with PT/OT and get her back to [facility] in am. (2) Elevated troponin: Likely related to her recent stroke. However, with patient unable to give a good history, her extensive known peripheral vascular disease and her new anterolateral TWI on EKG this evening, Cardiology was consulted and she was placed on telemetry montoring overnight. Additionally. her BP was elevated and she was placed on pressor therapy for a time in the ER when she was having the BP taken in her arms instead of her legs. Trend overnihgt and repeat EKG in am. Pt denies any symptoms of ACS at this time. Cont current medical management of PVD. (3) Stage III chronic kidney disease: at her current baseline. (4) Depression: recently diagnosed and started on sertraline 25mg daily last week. Will continue to go up on this weekly, titrating to effect and monitoring closely for suicidality or other issues. (5) Hypertension: After taking her BP in the legs, this number seems to be coming down a little more. Currently in the 130s systolic and she is asymptomatic (no GLEASON, etc) Cont current antihypertensive medical therapy. (6) History of CVA (cerebrovascular accident): recent CVA in left frontal region and has a h/o CVD and PVD. Cont DAPT and statin therapy as tolerated. Avoiding heparin for chemoprophylaxis of DVT to avoid further issues with epistaxis like last week. (7) PVD (peripheral vascular disease): Chronic, stable, not planning to undergo aggressive therapies. Cont current medical management. (8) DVT prophylaxis: SCDS DNR as discussed with nurse at Dispo-back to tomorrow to complete rehabilitation. Alexandra Johnson DO [facility] of Present Illness Satinder Lee MD The patients is a 70 yo F who was recently admitted for an acute stroke to this hospital, and while admitted had some severe epistaxis that was finally controlled. She has presumably vascular dementia or cognitive inhibition that has been developing and is progressive per my previous conversation about her recent behaviors and mindset with her last week when she was admitted. She was discharged to [facility] on Sunday and is returning today sent to the ER after a fall in her room. After trying to contact her unsuccessfully twice on different numbers, I contacted the staff at and spoke with the nurse who was present on the floor today. She states the patient was independently transferring yesterday, and that today she appeared to be trying to independently transfer from the wheelchair to the bed when she was found on the floor awake and in a sitting position in front of her wheelchair. The RN who evaluated her thought she was moving more slowly than she had been and thought that her "pupils were not reactive." There were no reported issues with blood pressure which is currenlty elevated as she was given LEvophed in the ER for 20 minutes when her arm BP reading was low. The patient is known to have severe PAD and her BP is most reliably taken in her legs. The patient was questioned but is known to decline questioning, and exams last week. She is easy to get upset and shut down. She was started on sertraline 25mg daily for a depressed affect when she was hospitalized last week and is still taking this. Although I'm monitoring for this, she doesn't appear suicidal. She is a very poor historian, answering most questions with "it's none of your business." From what I can gather from her she doesn't know where she is or how to describe how she fell, she denies LOC, she doesn't know where she was or why, she can't tell me her code status, and extensive ROS is negative. Her nurse at did give me that her code status per their records is a DNR and this was ordered until I can further clarify any changes with her . Allergies Allergy/AdvReac Type Severity Reaction Status Date / Time hydrocodone Allergy Intermediate CONFUSION Verified 03/10/20 08:06 ramipril Allergy Intermediate Nausea Verified 03/10/20 08:06 Sulfa (Sulfonamide Allergy Intermediate Nausea Verified 03/10/20 08:06 Antibiotics) Home Medications Medication Instructions Recorded Confirmed Type atorvastatin 80 mg PO HS 02/22/18 03/21/20 History multivitamin 1 tab PO QAM 02/22/18 03/21/20 History timolol maleate 1 drp OPL QAM 08/21/18 03/21/20 History acetaminophen [Tylenol Extra 500 mg PO QID PRN MDD 3G 10/10/18 03/21/20 History Strength] furosemide [Lasix] 10 mg PO QAM 11/14/18 03/21/20 History famotidine 20 mg PO BID 01/23/20 03/21/20 History Vitron-C 1 tab PO DAILY 01/28/20 03/21/20 History aspirin 81 mg PO DAILY 01/28/20 03/21/20 History cholecalciferol (vitamin D3) 50 mcg PO DAILY 01/28/20 03/21/20 History spironolactone 12.5 mg PO QAM 01/28/20 03/21/20 History amoxicillin 2,000 mg PO ONCE PRN 02/18/20 03/21/20 History clopidogrel [Plavix] 75 mg PO QAM 02/18/20 03/21/20 History loratadine [Claritin] 10 mg PO DAILY 02/18/20 03/21/20 History pantoprazole [Protonix] 20 mg PO DAILYBB 02/18/20 03/21/20 History levetiracetam 500 mg PO BID 03/10/20 03/21/20 History amlodipine [Norvasc] 5 mg PO QAM #30 tab 03/19/20 03/21/20 Rx sertraline 25 mg PO QAM #30 tab 03/19/20 03/21/20 Rx acetaminophen [Tylenol] 650 mg PO Q4H PRN MDD 3G 03/21/20 03/21/20 History metoprolol succinate 50 mg PO QAM 03/21/20 03/21/20 History Past Med/Surg History Medical History Anemia HX OF ANEMIA Aphasia Atrial ectopic tachycardia [place]eminy FOLLOWS WITH DR CONDON - LAST SEEN WEEK OF 09/30 Carotid stenosis S/P LEFT CEA (2012)- FOLLOWS WITH S IN GLOBE Chronic diastolic CHF (congestive heart failure) COPD (chronic obstructive pulmonary disease) GERD (gastroesophageal reflux disease) H/O gastric ulcer History of CVA (cerebrovascular accident) Hyperlipidemia Hypertension Prolonged Q-T interval on ECG PVD (peripheral vascular disease) Stroke-like symptom Surgical History H/O exploratory laparotomy 08/25/2018. Done 2/2 perforated gastric ulcer. Flynn 3, Grade 1 view. 7.5 ETT placed. no issues. History of carotid endarterectomy LEFT CEA (2012) History of cataract extraction RIGHT AND LEFT History of hand surgery History of left hip replacement History of tonsillectomy Family History Other COPD (chronic obstructive pulmonary disease) Kidney disease Social History Smoking Status: Former smoker Tobacco Type: Cigarettes Years Smoked: 30; Smoking End Date: 1997; Second Hand Exposure: No; Do You Dip or Chew Tobacco: No; Tobacco Cessation Education Requested by Patient: No Hx Alcohol Use: Yes Alcohol type: wine Alcohol Intake Frequency: 2-4 x/Month Hx Substance Use: No Preferred Language: Guyanese Communication Ability: Effective Visual Impairment: No Limitations Compensator Worker Required: No Beliefs That Will Affect Care: None marital status: Current Living Situation: Personal Care Facility Current Living Situation Comment: [facility]. Other Information That Helps Us Care for You: No Feels Safe at Home: Yes Safety Concerns: Feels Safe At This Time Assistive Devices: None Review of Systems Review of Systems: All systems reviewed & are unremarkable except as noted in Subjective Physical Exam Physical Exam: CONSTITUTIONAL: thin, frail, generally well-appearing EYES: pupils are round and equal bilaterally, normal conjunctivae, no scleral icterus ENT: external ear and nose normal, MMM RESPIRATORY: clear to auscultation bilaterally, no crackles, rales or wheezes, normal respiratory effort CARDIOVASCULAR: regular rate and rhythm, S1 and 2 heard without murmurs, pizano ps or rubs, no JVD, no peripheral edema CHEST: inspection of chest was normal GASTROINTESTINAL: soft, nontender, nondistended, no guarding MUSCULOSKELETAL: strength 5/5 throughout upper extremities, she didn't participate much in the testing of her lower extremities and was more interested in curling up under the blanket, last cleaner strength was intact bilaterally, head is normocephalic and atraumatic SKIN: warm and dry NEUROLOGIC: No facial palsy, minimal to no dysarthria greatly improved from last week. CN 2-12 grossly intact, no sensory deficit, normal cognition, normal speech PSYCHIATRIC: alert cooperative and oriented to person, place and time. Results & Data Results & Data ([facility]) Vital Signs (Past 12 Hours) Vital Signs Pulse Pulse Resp BP BP BP Pulse Ox 03/21/20 16:20 97 H 18 03/21/20 16:15 86 20 137/85 99 03/21/20 16:10 85 22 95 03/21/20 16:01 90 18 156/73 H 97 03/21/20 16:00 88 21 95 03/21/20 15:50 91 H 24 95 03/21/20 15:46 97 H 24 201/105 H 94 03/21/20 15:40 98 H 20 03/21/20 15:30 96 H 24 03/21/20 15:29 107 H 24 223/107 H 03/21/20 15:25 100 H 17 03/21/20 15:01 90 23 141/115 H 03/21/20 15:00 96 H 17 03/21/20 14:58 95 H 20 158/69 H 03/21/20 14:57 99 H 29 H 158/69 H 03/21/20 14:50 88 21 03/21/20 14:46 92 H 97 H 20 57/48 L 57/48 L 03/21/20 14:44 91 H 20 03/21/20 14:41 88 19 58/41 L 03/21/20 14:40 88 18 58/41 L 03/21/20 14:30 90 20 49/42 L 03/21/20 14:28 50/39 L 03/21/20 14:27 89 18 50/39 L 03/21/20 14:22 92 H 20 03/21/20 14:21 79 20 03/21/20 14:19 94 H 20 03/21/20 14:16 84 27 H 79/48 L 03/21/20 14:14 93 H 20 75/45 L 03/21/20 14:10 92 H 21 03/21/20 14:08 92 H 18 75/45 L 03/21/20 14:00 92 H 20 03/21/20 13:59 86 20 03/21/20 13:50 90 21 03/21/20 13:48 90 20 100/75 03/21/20 13:45 94 H 16 100/75 Laboratory Results Short CBC 03/21/20 Range/Units 16:22 WBC 6.17 (4.8-10.8) K/uL Hgb 12.0 (12.0-16.0) g/dL Hct 37.3 (37-47) % Plt Count 230 (130-400) K/uL BMP 03/21/20 14:10 Sodium 137 Potassium 4.1 Chloride 104 Carbon Dioxide 25 BUN 10 Creatinine 1.21 H Glucose 90 Calcium 9.0 Cardiac Enzymes 03/21/20 Range/Units 14:10 Troponin I 0.062 H* (0-0.045) ng/ml Liver Function 03/21/20 Range/Units 14:10 Total Bilirubin 1.0 (0.2-1) mg/dl AST 58 H (15-37) U/L ALT 36 (12-78) U/L Alkaline Phosphatase 61 (45-117) U/L Albumin 3.5 (3.4-5.0) gm/dl Urine 03/21/20 Range/Units 15:51 Urine Color Yellow Urine Appearance Clear (Clear) Urine pH 6.0 (4.5-7.5) Ur Specific [place] 1.015 (1.000-1.030) Urine Protein Trace H (Negative) Urine Glucose (UA) Negative (Negative) Code Status & VTE Plan Code Status DNR/DNI per [facility] records. VTE Prophylaxis Plan VTE Prophylaxis will be ordered: Yes (1) Fall Encounter type: initial encounter Qualified Code(s): W19.XXXA - Unspecified fall, initial encounter (2) Hypertension Hypertension type: unspecified Qualified Code(s): I10 - Essential (primary) hypertension
[2020-03-21] MEDS ORDERED: POLYETHYLENE (MIRALAX) 17 GM PACK PO PRN (19:13)
[2020-03-21] MEDS ORDERED: ACETAMINOPHEN 325 MG TAB PO PRN (19:13)
--- NOTE | 2020-03-21 22:39 | Electrocardiogram Report ---
Test Reason : Blood Pressure : / mmHG Vent. Rate : 093 BPM Atrial Rate : 093 BPM P-R Int : 140 ms QRS Dur : 082 ms QT Int : 380 ms P-R-T Axes : 057 -05 181 degrees QTc Int : 473 ms Poor data quality, interpretation may be adversely affected Normal sinus rhythm Right atrial enlargement T wave abnormality, consider anterior ischemia Abnormal ECG When compared with ECG of 11-MAR-2020 05:36, Premature ventricular complexes are no longer Present Premature atrial complexes are no longer Present T wave inversion now evident in Anterior leads Confirmed by Tristan Lane ([id number]) on 03/21/2020 10:39:33 PM Referred By: REFERRED SELF Confirmed By:Tristan Lane
[2020-03-22 06:27] LABS: Hematocrit (blood only) 34.4 % (37-47); Hemoglobin 11.3 g/dL (12.0-16.0); Mean Corpuscular Hemoglobin 32.7 pg (25-34); Mean Corpuscular Hgb Conc 32.8 g/dL (32-36); Mean Corpuscular Volume 99.4 fL (80-100); Mean Platelet Volume 9.9 fL (7.4-10.4); Platelet Count 251 K/uL (130-400); RDW Coefficient of Variation 12.3 % (11.5-14.5); RDW Standard Deviation 44.5 fL (36.4-46.3); Red Blood Count 3.46 M/uL (4.2-5.4); White Blood Count 6.16 K/uL (4.8-10.8)
[2020-03-22 06:57] LABS: BUN Creatinine Ratio 8.6 (10-20); Calcium 8.6 mg/dl (8.5-10.1); Creatinine Clr Calc Pharmacy 37.6 ml/min; Est GFR (African American) 65.6; Est GFR (Non-African American) 56.6; Potassium 3.1 mmol/L (3.5-5.1)
--- NOTE | 2020-03-22 10:55 | Cardiology Consultation ---
Date of Consultation March 22, 2020 Assessment & Plan (1) Abnormal EKG: Patient is a 70-year-old female referred for evaluation after hospitalization/mechanical fall. Underlying issues include diffuse vascular disease as described in recent neurologic events. Current event does not appear to be cardiac in origin, no arrhythmias on telemetry other than atrial and ventricular ectopy. EKG abnormal in comparison to past EKG does not suggest acute coronary syndrome. Suspect multifactorial EKG changes including longstanding hypertension, recent cerebrovascular event, hypokalemia. Troponins are mildly elevated but flat without evolution suggest acute injury or ischemia. Ultimate goals will be medical management. Patient extremely high risk for any coronary invention given the degree of aortic atheromatous disease, prior thromboemboli and poor access for an interventional target Recommendations: Supplement potassium, resume antihypertensives including beta- alessandra. Furosemide and spironolactone were held during last hospitalization and resumed on discharge. Would continue to hold for time being Patient to resume rehab. She remains at risk for recurrent event (2) Elevated troponin: (3) Cerebrovascular insufficiency syndrome: (4) Hypokalemia: History of Present Illness Reason for Consultation: Abnormal EKG Requesting Physician: Dr. 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 Chronic diastolic dysfunction with compensated heart failure 2. Diffuse vascular disease including severe aortic arch atheromatous disease with cardioembolic cerebrovascular infarct 3. Atherosclerotic carotid disease status post left carotid endarterectomy, right innominate artery occlusion, high-grade right internal carotid stenosis poor upper extremity blood pressures. 4. Dyslipidemia 5. Chronic obstructive lung disease Patient referred for evaluation this admission having suffered a mechanical fall while at rehab facility. Patient has a moderate expressive aphasia but has recollection of the fall. Noted no chest pains or tachypalpitations minimal dizziness. No complaints this morning. On presentation to the ER she was transiently begun on IV pressors due to low blood pressures on evaluation by upper extremities (known difficulty with blood pressures) EKG noted T wave inversion and atrial and ventricular ectopy. Currently patient denies focal complaint. Notes no chest pains, shortness of breath, orthopnea. Is being evaluated by physical therapy. No fevers chills or unexplained infections. Allergies Allergy/AdvReac Type Severity Reaction Status Date / Time hydrocodone Allergy Intermediate CONFUSION Verified 03/10/20 08:06 ramipril Allergy Intermediate Nausea Verified 03/10/20 08:06 Sulfa (Sulfonamide Allergy Intermediate Nausea Verified 03/10/20 08:06 Antibiotics) Home Medications Medication Instructions Recorded Confirmed Type atorvastatin 80 mg PO HS 02/22/18 03/21/20 History multivitamin 1 tab PO QAM 02/22/18 03/21/20 History timolol maleate 1 drp OPL QAM 08/21/18 03/21/20 History acetaminophen [Tylenol Extra 500 mg PO QID PRN MDD 3G 10/10/18 03/21/20 History Strength] furosemide [Lasix] 10 mg PO QAM 11/14/18 03/21/20 History famotidine 20 mg PO BID 01/23/20 03/21/20 History Vitron-C 1 tab PO DAILY 01/28/20 03/21/20 History aspirin 81 mg PO DAILY 01/28/20 03/21/20 History cholecalciferol (vitamin D3) 50 mcg PO DAILY 01/28/20 03/21/20 History spironolactone 12.5 mg PO QAM 01/28/20 03/21/20 History amoxicillin 2,000 mg PO ONCE PRN 02/18/20 03/21/20 History clopidogrel [Plavix] 75 mg PO QAM 02/18/20 03/21/20 History loratadine [Claritin] 10 mg PO DAILY 02/18/20 03/21/20 History pantoprazole [Protonix] 20 mg PO DAILYBB 02/18/20 03/21/20 History levetiracetam 500 mg PO BID 03/10/20 03/21/20 History amlodipine [Norvasc] 5 mg PO QAM #30 tab 03/19/20 03/21/20 Rx sertraline 25 mg PO QAM #30 tab 03/19/20 03/21/20 Rx acetaminophen [Tylenol] 650 mg PO Q4H PRN MDD 3G 03/21/20 03/21/20 History metoprolol succinate 50 mg PO QAM 03/21/20 03/21/20 History Patient History Medical History Anemia HX OF ANEMIA Aphasia Atrial ectopic tachycardia [place] FOLLOWS WITH DR CONDON - LAST SEEN WEEK OF 09/30 Carotid stenosis S/P LEFT CEA (2012)- FOLLOWS WITH [facility] IN [place] Chronic diastolic CHF (congestive heart failure) COPD (chronic obstructive pulmonary disease) GERD (gastroesophageal reflux disease) H/O gastric ulcer History of CVA (cerebrovascular accident) Hyperlipidemia Hypertension Prolonged Q-T interval on ECG PVD (peripheral vascular disease) Stroke-like symptom Surgical History H/O exploratory laparotomy 08/25/2018. Done 2/ perforated gastric ulcer. Flynn 3, Grade 1 view. 7.5 ETT placed. no issues. History of carotid endarterectomy LEFT CEA (2012) History of cataract extraction RIGHT AND LEFT History of hand surgery History of left hip replacement History of tonsillectomy Family History Other COPD (chronic obstructive pulmonary disease) Kidney disease Social History Smoking Status: Former smoker Tobacco Type: Cigarettes Years Smoked: 30; Smoking End Date: 1997; Second Hand Exposure: No; Do You Dip or Chew Tobacco: No; Tobacco Cessation Education Requested by Patient: No Hx Alcohol Use: Yes Alcohol type: wine Alcohol Intake Frequency: 2-4 x/Month Hx Substance Use: No Preferred Language: Maltese Communication Ability: Effective Visual Impairment: No Limitations 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 Other Information That Helps Us Care for You: No Feels Safe at Home: Yes Safety Concerns: Feels Safe At This Time Assistive Devices: None Review of Systems Review of Systems: All systems reviewed & are unremarkable except as noted in HPI & below Physical Exam Constitutional: + frail appearing; no acute distress Eyes: PERRL, conjunctivae normal, anicteric sclerae ENMT: external ear and nose normal, oropharynx normal Neck: trachea midline, no thyromegaly Healed left carotid endarterectomy scar Respiratory: normal respiratory effort, lungs clear to auscultation Cardiovascular: Rate/Rhythm: regular rate and regular rhythm Heart Sounds: normal S1 and normal S2; no gallop and no murmur Palpation: normal PMI Vessels: normal carotid upstroke and radial pulses present; no JVD and no carotid bruit Extremities: no edema Gastrointestinal (Abdomen): normal bowel sounds, soft, nontender, no hepatosplenomegaly Musculoskeletal: no cyanosis or clubbing, extremities motor strength 5/5 Skin: no rashes, warm and dry Neurologic: Moderate expressive aphasia Psychiatric: A+Ox3, euthymic affect Results & Data ([facility]) Vital Signs (Past 12 Hours) Vital Signs Temp Pulse Pulse Resp BP BP Pulse Ox 03/22/20 10:39 65 03/22/20 07:45 36.8 C 78 18 115/61 99 03/22/20 03:06 36.3 C L 66 18 159/74 H 92 03/22/20 00:05 77 03/21/20 23:13 36.3 C L 67 18 156/68 H 92 Laboratory Results Laboratory Results - last 24 hr 03/21/20 03/21/20 03/21/20 14:10 14:10 14:15 WBC RBC Hgb POC Hgb 13.3 Hct POC Hct 39 MCV MCH MCHC RDW Std Deviation RDW Coeff of Lyssa Plt Count MPV Immature Gran % (Auto) Neut % (Auto) Lymph % (Auto) Gem % (Auto) Eos % (Auto) Baso % (Auto) Neut # (Auto) Lymph # (Auto) Gem # (Auto) Eos # (Auto) Baso # (Auto) Immature Gran # (Auto) PT INR POC Sodium 137 Sodium 137 POC Potassium 4.2 Potassium 4.1 POC Chloride 103 Chloride 104 Carbon Dioxide 25 POC Total CO2 23 L Anion Gap 8.0 POC Anion Gap 17.0 POC BUN 10 BUN 10 Creatinine 1.21 H POC Creatinine 1.2 Est Cr Clr Drug Dosing Not Reportable Est GFR ( Amer) 52.1 Est GFR (Non-Af Amer) 45.0 BUN/Creatinine Ratio 8.1 L Glucose 90 POC Glucose 76 POC Glucose (other) 91 Lactate Calcium 9.0 POC Ioniz Calcium Uhbert 1.06 L Magnesium 2.2 Total Bilirubin 1.0 AST 58 H ALT 36 Alkaline Phosphatase 61 Troponin I 0.062 H* Total Protein 7.9 Albumin 3.5 Globulin 4.4 H Albumin/Globulin Ratio 0.8 L TSH 0.531 Urine Color Urine Appearance Urine pH Ur Specific [place] Urine Protein Urine Glucose (UA) Urine Ketones Urine Blood Urine Nitrite Urine Bilirubin Urine Urobilinogen Ur Leukocyte Esterase Urine WBC (Auto) Urine RBC (Auto) U Hyaline Cast (Auto) U Epithel Cells (Auto) Urine Bacteria (Auto) Nasal Screen MRSA (PCR) SARS-CoV-2 Ag (Rapid) 03/21/20 03/21/20 03/21/20 15:51 16:22 16:40 WBC 6.17 RBC 3.78 L Hgb 12.0 POC Hgb Hct 37.3 POC Hct MCV 98.7 MCH 31.7 MCHC 32.2 RDW Std Deviation 44.0 RDW Coeff of Lyssa 12.4 Plt Count 230 MPV 9.8 Immature Gran % (Auto) 0.8 Neut % (Auto) 78.0 Lymph % (Auto) 14.9 Gem % (Auto) 5.5 Eos % (Auto) 0.5 Baso % (Auto) 0.3 Neut # (Auto) 4.81 Lymph # (Auto) 0.92 L Gem # (Auto) 0.34 Eos # (Auto) 0.03 Baso # (Auto) 0.02 Immature Gran # (Auto) 0.05 H PT 11.8 INR 1.1 POC Sodium Sodium POC Potassium Potassium POC Chloride Chloride Carbon Dioxide POC Total CO2 Anion Gap POC Anion Gap POC BUN BUN Creatinine POC Creatinine Est Cr Clr Drug Dosing Est GFR ( Amer) Est GFR (Non-Af Amer) BUN/Creatinine Ratio Glucose POC Glucose POC Glucose (other) Lactate Calcium POC Ioniz Calcium Hubert Magnesium Total Bilirubin AST ALT Alkaline Phosphatase Troponin I Total Protein Albumin Globulin Albumin/Globulin Ratio TSH Urine Color Yellow Urine Appearance Clear Urine pH 6.0 Ur Specific [place] 1.015 Urine Protein Trace H Urine Glucose (UA) Negative Urine Ketones Negative Urine Blood Negative Urine Nitrite Negative Urine Bilirubin Negative Urine Urobilinogen Negative Ur Leukocyte Esterase Negative Urine WBC (Auto) 1-5 Urine RBC (Auto) 0-4 U Hyaline Cast (Auto) 0 U Epithel Cells (Auto) 5-10 H Urine Bacteria (Auto) Negative Nasal Screen MRSA (PCR) SARS-CoV-2 Ag (Rapid) 03/21/20 03/21/20 03/21/20 16:40 17:09 19:25 WBC RBC Hgb POC Hgb Hct POC Hct MCV MCH MCHC RDW Std Deviation RDW Coeff of Lyssa Plt Count MPV Immature Gran % (Auto) Neut % (Auto) Lymph % (Auto) Gem % (Auto) Eos % (Auto) Baso % (Auto) Neut # (Auto) Lymph # (Auto) Gem # (Auto) Eos # (Auto) Baso # (Auto) Immature Gran # (Auto) PT INR POC Sodium Sodium POC Potassium Potassium POC Chloride Chloride Carbon Dioxide POC Total CO2 Anion Gap POC Anion Gap POC BUN BUN Creatinine POC Creatinine Est Cr Clr Drug Dosing Est GFR ( Amer) Est GFR (Non-Af Amer) BUN/Creatinine Ratio Glucose POC Glucose POC Glucose (other) Lactate Cancelled Calcium POC Ioniz Calcium Hubert Magnesium Total Bilirubin AST ALT Alkaline Phosphatase Troponin I 0.075 H* Total Protein Albumin Globulin Albumin/Globulin Ratio TSH Urine Color Urine Appearance Urine pH Ur Specific [place] Urine Protein Urine Glucose (UA) Urine Ketones Urine Blood Urine Nitrite Urine Bilirubin Urine Urobilinogen Ur Leukocyte Esterase Urine WBC (Auto) Urine RBC (Auto) U Hyaline Cast (Auto) U Epithel Cells (Auto) Urine Bacteria (Auto) Nasal Screen MRSA (PCR) SARS-CoV-2 Ag (Rapid) Negative 03/21/20 03/22/20 03/22/20 19:50 01:22 05:59 WBC 6.16 RBC 3.46 L Hgb 11.3 L POC Hgb Hct 34.4 L POC Hct MCV 99.4 MCH 32.7 MCHC 32.8 RDW Std Deviation 44.5 RDW Coeff of Lyssa 12.3 Plt Count 251 MPV 9.9 Immature Gran % (Auto) Neut % (Auto) Lymph % (Auto) Gem % (Auto) Eos % (Auto) Baso % (Auto) Neut # (Auto) Lymph # (Auto) Gem # (Auto) Eos # (Auto) Baso # (Auto) Immature Gran # (Auto) PT INR POC Sodium Sodium POC Potassium Potassium POC Chloride Chloride Carbon Dioxide POC Total CO2 Anion Gap POC Anion Gap POC BUN BUN Creatinine POC Creatinine Est Cr Clr Drug Dosing Est GFR ( Amer) Est GFR (Non-Af Amer) BUN/Creatinine Ratio Glucose POC Glucose POC Glucose (other) Lactate Calcium POC Ioniz Calcium Hubert Magnesium Total Bilirubin AST ALT Alkaline Phosphatase Troponin I 0.079 H* Total Protein Albumin Globulin Albumin/Globulin Ratio TSH Urine Color Urine Appearance Urine pH Ur Specific [place] Urine Protein Urine Glucose (UA) Urine Ketones Urine Blood Urine Nitrite Urine Bilirubin Urine Urobilinogen Ur Leukocyte Esterase Urine WBC (Auto) Urine RBC (Auto) U Hyaline Cast (Auto) U Epithel Cells (Auto) Urine Bacteria (Auto) Nasal Screen MRSA (PCR) Negative SARS-CoV-2 Ag (Rapid) 03/22/20 05:59 WBC RBC Hgb POC Hgb Hct POC Hct MCV MCH MCHC RDW Std Deviation RDW Coeff of Lyssa Plt Count MPV Immature Gran % (Auto) Neut % (Auto) Lymph % (Auto) Gem % (Auto) Eos % (Auto) Baso % (Auto) Neut # (Auto) Lymph # (Auto) Gem # (Auto) Eos # (Auto) Baso # (Auto) Immature Gran # (Auto) PT INR POC Sodium Sodium 139 POC Potassium Potassium 3.1 L D POC Chloride Chloride 106 Carbon Dioxide 26 POC Total CO2 Anion Gap 7.0 POC Anion Gap POC BUN BUN 9 Creatinine 1.00 POC Creatinine Est Cr Clr Drug Dosing 37.6 Est GFR ( Amer) 65.6 Est GFR (Non-Af Amer) 56.6 BUN/Creatinine Ratio 8.6 L Glucose 72 POC Glucose POC Glucose (other) Lactate Calcium 8.6 POC Ioniz Calcium Hubert Magnesium Total Bilirubin AST ALT Alkaline Phosphatase Troponin I Total Protein Albumin Globulin Albumin/Globulin Ratio TSH Urine Color Urine Appearance Urine pH Ur Specific [place] Urine Protein Urine Glucose (UA) Urine Ketones Urine Blood Urine Nitrite Urine Bilirubin Urine Urobilinogen Ur Leukocyte Esterase Urine WBC (Auto) Urine RBC (Auto) U Hyaline Cast (Auto) U Epithel Cells (Auto) Urine Bacteria (Auto) Nasal Screen MRSA (PCR) SARS-CoV-2 Ag (Rapid)
[2020-03-22] MEDS ORDERED: POTASSIUM CHLORIDE CRTAB 20 MEQ TABCR PO ONE (13:30)
[2020-03-22] MEDS ORDERED: POTASSIUM CHLORIDE 40 MEQ in SODIUM CHLORIDE 0.9% 500 ML IV SCH (13:30)
--- NOTE | 2020-03-22 17:35 | Hospitalist Progress Note ---
Date of Service March 22, 2020 Assessment & Plan (1) Fall: Nontraumatic, and she didn't lose consciousness. Unwitnessed fall but nurses quickly responded at the facility. Workup with imaging in the ER was negative including repeat head CT, and she denies any new pain or issues. She was acutally sent over for nonreactive pupils, which are equal in fact. And she appears neurologically improved without focal deficits outside of her memory since she was last seen here on Sunday. Would reassess her abilities with PT/OT and get her back to [facility] in am. (2) Elevated troponin: Likely related to her recent stroke. However, with patient unable to give a good history, her extensive known peripheral vascular disease and her new anterolateral TWI on EKG this evening, Cardiology was consulted and she was placed on telemetry montoring overnight. Additionally. her BP was elevated and she was placed on pressor therapy for a time in the ER when she was having the BP taken in her arms instead of her legs. Trend overnihgt and repeat EKG in am. Pt denies any symptoms of ACS at this time. Cont current medical management of PVD. (3) Stage III chronic kidney disease: at her current baseline. (4) Depression: recently diagnosed and started on sertraline 25mg daily last week. Will continue to go up on this weekly, titrating to effect and monitoring closely for suicidality or other issues. (5) Hypertension: Controlled after restarting home medications. Cont current antihypertensive medical therapy. (6) History of CVA (cerebrovascular accident): recent CVA in left frontal region and has a h/o CVD and PVD. Cont DAPT and statin therapy as tolerated. Avoiding heparin for chemoprophylaxis of DVT to avoid further issues with epistaxis like last week. (7) PVD (peripheral vascular disease): Chronic, stable, not planning to undergo aggressive therapies. Cont current medical management. (8) DVT prophylaxis: SCDS DNR as discussed with nurse at Dispo-back to tomorrow to complete rehabilitation. Alexandra Johnson DO [facility] Hospitalist Admission and Anticipated Discharge Date Admission Date: March 21, 2020 Subjective cc: Fall at [place] [facility] The patient is resting comfortably in bed She is resistant to moving around much or physical exam From what I can tell she is feeling well although she burst into fits of irritation. 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) Physical Exam Physical Exam: CONSTITUTIONAL: thin, frail, generally well-appearing EYES: pupils are round and equal bilaterally, normal conjunctivae, no scleral icterus ENT: external ear and nose normal, MMM RESPIRATORY: clear to auscultation bilaterally, no crackles, rales or wheezes, normal respiratory effort CARDIOVASCULAR: regular rate and rhythm, S1 and 2 heard without murmurs, gallops or rubs, no JVD, no peripheral edema CHEST: inspection of chest was normal GASTROINTESTINAL: soft, nontender, nondistended, no guarding MUSCULOSKELETAL: strength 5/5 throughout upper extremities NEUROLOGIC: No facial palsy, minimal to no dysarthria greatly improved from last week. CN 2-12 grossly intact, no sensory deficit, normal cognition, normal speech PSYCHIATRIC: alert cooperative and oriented to person, place and time. Results & Data Results & Data ([place]) Vital Signs (Past 12 Hours) Vital Signs Temp Pulse Pulse Resp BP BP Pulse Ox 03/22/20 16:05 36.5 C 79 18 169/122 H 96 03/22/20 11:18 36.6 C 97 03/22/20 10:54 96 H 153/56 H 03/22/20 10:39 65 03/22/20 07:45 36.8 C 78 18 115/61 99 (1) Hypertension Hypertension type: unspecified Qualified Code(s): I10 - Essential (primary) hypertension (2) Fall Encounter type: initial encounter Qualified Code(s): W19.XXXA - Unspecified fall, initial encounter
[2020-03-22] MEDS: SPIRONOLACTONE 12.5 MG TAB PO SCH (18:55)
[2020-03-22] MEDS: CLOPIDOGREL BISULFATE 75 MG TAB PO SCH (18:56)
[2020-03-22] MEDS: FUROSEMIDE 20 MG TAB PO SCH (18:56)
[2020-03-22] MEDS: amLODIPine BESYLATE 5 MG TAB PO SCH (18:56)
[2020-03-22] MEDS: ASPIRIN 81 MG ECTAB PO SCH (18:57)
[2020-03-22] MEDS: METOPROLOL SUCC 50MG EXT REL TAB PO SCH (18:57)
[2020-03-22] MEDS: SERTRALINE HCL 50 MG TABLET PO SCH (19:02)
[2020-03-22] MEDS: levETIRAcetam 500 MG TAB PO SCH (19:55)
[2020-03-22] MEDS: FAMOTIDINE 20 MG TAB PO SCH (19:56)
[2020-03-22] MEDS ORDERED: ATORVASTATIN 40 MG TAB PO SCH (21:00)
--- NOTE | 2020-03-23 05:54 | Electrocardiogram Report ---
Test Reason : Blood Pressure : / mmHG Vent. Rate : 083 BPM Atrial Rate : 083 BPM P-R Int : 150 ms QRS Dur : 090 ms QT Int : 408 ms P-R-T Axes : 006 003 203 degrees QTc Int : 479 ms Sinus rhythm with frequent Premature ventricular complexes and Fusion complexes Prolonged QT Abnormal ECG When compared with ECG of 21-MAR-2020 13:57, Fusion complexes are now Present Premature ventricular complexes are now Present QT has lengthened Confirmed by Tristan Lane ([id number]) on 03/23/2020 5:54:09 AM Referred By: REFERRED SELF Confirmed By:Tristan Lane
[2020-03-23] MEDS ORDERED: PANTOprazole 40 MG TAB PO SCH (06:30)
[2020-03-23] MEDS: FAMOTIDINE 20 MG TAB PO SCH (08:46)
[2020-03-23] MEDS: amLODIPine BESYLATE 5 MG TAB PO SCH (08:46)
[2020-03-23] MEDS: CLOPIDOGREL BISULFATE 75 MG TAB PO SCH (08:46)
[2020-03-23] MEDS: METOPROLOL SUCC 50MG EXT REL TAB PO SCH (08:46)
[2020-03-23] MEDS: SERTRALINE HCL 50 MG TABLET PO SCH (08:46)
[2020-03-23] MEDS: FUROSEMIDE 20 MG TAB PO SCH (08:46)
[2020-03-23] MEDS: levETIRAcetam 500 MG TAB PO SCH (08:47)
[2020-03-23] MEDS: SPIRONOLACTONE 12.5 MG TAB PO SCH (08:47)
[2020-03-23] MEDS: ASPIRIN 81 MG ECTAB PO SCH (08:47)
[2020-03-23] MEDS ORDERED: MULTIVITAMIN TAB PO SCH (09:00)
[2020-03-23] MEDS ORDERED: FERROUS SULFATE 325 MG TAB PO SCH (09:00)
[2020-03-23] MEDS ORDERED: LORATADINE 10 MG TAB PO SCH (09:00)
[2020-03-23] MEDS ORDERED: CHOLECALCIFEROL 1,000 UNITS 25 MCG TAB PO SCH (09:00)
--- NOTE | 2020-03-23 10:38 | Cardiology Progress Note ---
Date of Service March 23, 2020 Assessment & Plan (1) Abnormal EKG: Patient is a 70-year-old female referred for evaluation after hospitalization/mechanical fall. Underlying issues include diffuse vascular disease as described in recent neurologic events. Current event does not appear to be cardiac in origin, no arrhythmias on telemetry other than atrial and ventricular ectopy. EKG abnormal in comparison to past EKG does not suggest acute coronary syndrome. Suspect multifactorial EKG changes including longstanding hypertension, recent cerebrovascular event, hypokalemia. Troponins are mildly elevated but flat without evolution suggest acute injury or ischemia. Ultimate goals will be medical management. Patient extremely high risk for any coronary invention given the degree of aortic atheromatous disease, prior thromboemboli and poor access for an interventional target Recommendations: Supplement potassium, resume antihypertensives including beta- alessandra. Furosemide and spironolactone were held during last hospitalization and resumed on discharge. Would continue to hold for time being Patient to resume rehab. She remains at risk for recurrent event Assessment as per yesterday Note patient with severe proximal vessel disease both upper extremities, shaggy aorta extremely high risk if not prohibitive risk for any vascular intervention. Continue medical therapies as ordered (2) Elevated troponin: (3) Cerebrovascular insufficiency syndrome: (4) Hypokalemia: Admission and Anticipated Discharge Date Admission Date: March 22, 2020 Subjective Patient seen and examined, chart, medications reviewed. She denies any focal complaints, chest pains or shortness of breath. Participated in physical therapy yesterday Physical Exam Constitutional: + frail appearing; no acute distress Eyes: PERRL, conjunctivae normal, anicteric sclerae ENMT: external ear and nose normal, oropharynx normal Neck: trachea midline, no thyromegaly Respiratory: normal respiratory effort, lungs clear to auscultation Cardiovascular: Rate/Rhythm: regular rate and regular rhythm Heart Sounds: normal S1 and normal S2; no gallop and no murmur Palpation: normal PMI Vessels: normal carotid upstroke and radial pulses present; no JVD and no carotid bruit Extremities: no edema Gastrointestinal (Abdomen): normal bowel sounds, soft, nontender, no hepatosplenomegaly Musculoskeletal: no cyanosis or clubbing, extremities motor strength 5/5 Skin: no rashes, warm and dry Psychiatric: A+Ox3, euthymic affect Results & Data ([facility]) Vital Signs (Past 12 Hours) Vital Signs Temp Pulse Resp BP BP Pulse Ox 03/23/20 10:27 77 19 157/66 H 94 03/23/20 05:23 97 03/23/20 04:05 36.5 C 79 16 150/70 H 87 L 03/22/20 23:16 36.6 C 89 18 114/69 93
--- NOTE | 2020-03-23 11:54 | Discharge Summary ---
Date of Service March 23, 2020 Admission HPI Per Admitting Provider Satinder Lee MD The patients is a 70 yo F who was recently admitted for an acute stroke to this hospital, and while admitted had some severe epistaxis that was finally controlled. She has presumably vascular dementia or cognitive inhibition that has been developing and is progressive per my previous conversation about her recent behaviors and mindset with her last week when she was admitted. She was discharged to [facility] on Sunday and is returning today sent to the ER after a fall in her room. After trying to contact her unsuccessfully twice on different numbers, I contacted the staff at and spoke with the nurse who was present on the floor today. She states the patient was independently transferring yesterday, and that today she appeared to be trying to independently transfer from the wheelchair to the bed when she was found on the floor awake and in a sitting position in front of her wheelchair. The RN who evaluated her thought she was moving more slowly than she had been and thought that her "pupils were not reactive." There were no reported issues with blood pressure which is currenlty elevated as she was given LEvophed in the ER for 20 minutes when her arm BP reading was low. The patient is known to have severe PAD and her BP is most reliably taken in her legs. The patient was questioned but is known to decline questioning, and exams last week. She is easy to get upset and shut down. She was started on sertraline 25mg daily for a depressed affect when she was hospitalized last week and is still taking this. Although I'm monitoring for this, she doesn't appear suicidal. She is a very poor historian, answering most questions with "it's none of your business." From what I can gather from her she doesn't know where she is or how to describe how she fell, she denies LOC, she doesn't know where she was or why, she can't tell me her code status, and extensive ROS is negative. Her nurse at did give me that her code status per their records is a DNR and this was ordered until I can further clarify any changes with her . Admission Exam Per Admitting Provider CONSTITUTIONAL: thin, frail, generally well-appearing EYES: pupils are round and equal bilaterally, normal conjunctivae, no scleral icterus ENT: external ear and nose normal, MMM RESPIRATORY: clear to auscultation bilaterally, no crackles, rales or wheezes, normal respiratory effort CARDIOVASCULAR: regular rate and rhythm, S1 and 2 heard without murmurs, gallops or rubs, no JVD, no peripheral edema CHEST: inspection of chest was normal GASTROINTESTINAL: soft, nontender, nondistended, no guarding MUSCULOSKELETAL: strength 5/5 throughout upper extremities, she didn't participate much in the testing of her lower extremities and was more interested in curling up under the blanket, machine hamper maker strength was intact bilaterally, head is normocephalic and atraumatic SKIN: warm and dry NEUROLOGIC: No facial palsy, minimal to no dysarthria greatly improved from last week. CN 2-12 grossly intact, no sensory deficit, normal cognition, normal speech PSYCHIATRIC: alert cooperative and oriented to person, place and time. Principal Diagnosis Fall due to sequelae of recent stroke Discharge Exam CONSTITUTIONAL: thin, frail, generally well-appearing. She declined the majority of the exam as usual but did allow me to sit her up on the side of the bed. She was unable to sit up on her own, became unbalanced and fell back onto her left side. EYES: pupils are round and equal bilaterally, normal conjunctivae, no scleral icterus ENT: external ear and nose normal, MMM RESPIRATORY: clear to auscultation bilaterally, no crackles, rales or wheezes, normal respiratory effort CARDIOVASCULAR: regular rate and rhythm, S1 and 2 heard without murmurs, gallops or rubs, no JVD, no peripheral edema CHEST: inspection of chest was normal MUSCULOSKELETAL: strength 5/5 throughout upper extremities NEUROLOGIC: No facial palsy, minimal to no dysarthria greatly improved from last week. CN 2-12 grossly intact, no sensory deficit, normal cognition, normal speech PSYCHIATRIC: alert cooperative and oriented to person, place and time. Intermittent frustration and lack of cooperation with conversation, line of questioning or exam. Discharge Data Allergies Allergy/AdvReac Type Severity Reaction Status Date / Time hydrocodone Allergy Intermediate CONFUSION Verified 03/10/20 08:06 ramipril Allergy Intermediate Nausea Verified 03/10/20 08:06 Sulfa (Sulfonamide Allergy Intermediate Nausea Verified 03/10/20 08:06 Antibiotics) Consultations 03/21/20 16:39 ED Decision to Admit Stat 03/21/20 19:13 Consult Cardiology Routine Consult Case Management - Discharge Planning Routine Ordered Studies [facility], [id number] CT Scan Report Patient: LAINE WADDELL AAdmit Date: 03/21/20MR#: [id number]: 1950 [place] DRAcct ID:[id number]: Date: 1950[facility] Zip: [place], [place] [address]Owe: 70Location: EDSex: FRoom/Bed:Att Phy:Diagnosis: AMSPri Phy: Satinder Lee MDService Date: 03/21/20Fam Phy:Interpreting Phy: Jessee Harris MDAdmit Phy: Ordering Phy: Ken Cash M.D. cc: ~ CT head/brain wo con CLINICAL HISTORY: Head pain status post trauma. Weakness. COMPARISON STUDY: Head CT dated 03/10/2020 TECHNIQUE: Axial CT of the brain is performed from the vertex to the skull base. IV contrast was not administered for this examination. A dose lowering technique was utilized adhering to the principles of ALARA. CT DOSE: FINDINGS: No intra or extra-axial mass lesions are visualized. There is no CT evidence of acute cortical infarction. There is no evidence of midline shift. There is no acute hemorrhage. No calvarial fractures are visualized. There are moderate white matter hypodensities likely on a small vessel basis. There is an old left frontal lobe infarct There is no evidence of pathologic ventricular dilatation. There is chronic sphenoid sinus opacification with cemented sinus wall thickening. IMPRESSION: No acute intracranial findings ACT 112: Negative or not required by law. Electronically signed by: Jessee Harris M.D. 03/21/2020 3:26 PM Dictated: 03/21/20 1524Transcribed: 03/21/20 1524 [facility], [id number] XRay Report Patient: LAINE WADDELL AAdmit Date: 03/21/20MR#: [id number]: 1950 [facility] DRAcct ID:[id number]: Date: 1950[facility] Zip: [place], [place] [address]Bho: 70Location: EDSex: FRoom/Bed:Att Phy:Diagnosis: AMSPri Phy: Satinder Lee MDService Date: 03/21/20Fam Phy:Interpreting Phy: Jessee Harris MDAdmit Phy: Ordering Phy: Ken Cash M.D. cc: ~ XR chest 1V portable CLINICAL HISTORY: weakness COMPARISON STUDY: 03/10/2020 FINDINGS: The heart is the upper limits of normal in size. There is aortic tortuosity/ectasia. There is persistent elevation of left hemidiaphragm. There is progressive elevation of the interstitium. This could be secondary to either congestive failure, or a diffuse interstitial infectious/inflammatory process. Mild congestive failure is favored. Clinical and radiographic follow-up is recommended.[ IMPRESSION: 1. Progressive elevation of interstitium. While likely secondary to mild congestive failure, an interstitial infectious/inflammatory process could appear similar. ACT 112: Negative or not required by law. Electronically signed by: Jessee Harris M.D. 03/21/2020 3:47 PM Dictated: 03/21/20 1545Transcribed: 03/21/20 1545 [facility], [phone] CT Scan Report Patient: LAINE WADDELL AAdmit Date: 03/21/20MR#: [id number]: 1951 [facility] DRAcct ID:[id number]: Date: 1950[facility] Zip: [place], [place] [address]Ykp: 70Location: EDSex: FRoom/Bed:Att Phy:Diagnosis: AMSPri Phy: RosaSebasheraclio MDService Date: 03/21/20Fam Phy:Interpreting Phy: Jessee Harris MDAit Phy: Ordering Phy: Ken Cash M.D. cc: ~ CT ANGIOGRAM OF THE CHEST CLINICAL HISTORY: Hypotension. Weakness. Possible acute pulmonary embolism. Chest pain. COMPARISON STUDY: January 30, 2020 TECHNIQUE: Following the IV administration of 119 mL of Optiray-320, CT angiogram of the thorax was performed from the thoracic inlet to the lung bases utilizing the pulmonary embolus protocol. Images are reviewed in the axial, sagittal, and coronal planes. IV contrast was administered without complication. MIP imaging was performed. A dose lowering technique was utilized adhering to the principles of ALARA. CT DOSE: FINDINGS: No pathologically enlarged axillary mediastinal or hilar lymph nodes were visualized. There was no evidence of thoracic aortic dilatation. There were no pulmonary artery filling defects to indicate acute pulmonary embolism. No pleural effusions are visualized. There is persistent elevation of the left hemidiaphragm. There is pulmonary emphysema with subpleural reticulation. There is no pneumothorax. There is no focal pulmonary consolidation. There is occlusion/subtotal occlusion on the left subclavian artery. There is a high-grade stenosis of the left common carotid origin. There is subtotal occlusion of the proximal right innominate artery. IMPRESSION: 1. No evidence of acute pulmonary embolism 2. Pulmonary emphysema with subpleural reticulation 3. Elevation left hemidiaphragm 4. Severe atherosclerotic disease with occlusion/subtotal occlusion of a left subclavian artery, critical high-grade stenosis of the left common carotid artery, and subtotal occlusion of a proximal right innominate artery. ACT 112: Negative or not required by law. Electronically signed by: Jessee Harris M.D. 03/21/2020 3:35 PM Dictated: 03/21/201530Transcribed: 03/21/201530 [place], [phone] CT Scan Report Patient: LAINE WADDELL AAdmit Date: 03/21/20MR#: [id number]: 1950 [facility] DRAcct ID:[id number]: Date: 1950[facility] Zip: [place], [place] [address]Oxk: 70Location: EDSex: FRoom/Bed:Att Phy:Diagnosis: AMSPri Phy: Satinder Lee MDService Date: 03/21/20Fa Phy:Interpreting Phy: Jessee Harris MDAdmit Phy: Ordering Phy: Ken Cash M.D. cc: ~ CT OF THE CERVICAL SPINE CLINICAL HISTORY: Neck pain status post trauma COMPARISON STUDY: December 2019 CT DOSE: 1601.65 mGy.cm TECHNIQUE: CT scan of the cervical spine was performed from the skull base to the thoracic inlet. Images are reviewed in the axial, sagittal, and coronal planes. IV contrast was not administered for this examination. A dose lowering technique was utilized adhering to the principles of ALARA. FINDINGS: The visualized portions of the lung apices reveal no evidence of pneumothorax. There is a stable 14 mm partially cystic left apical nodule. There is a left mastoid effusion The prevertebral soft tissues are normal. No fractures or subluxations are visualized. There are multilevel degenerative changes IMPRESSION: No evidence of acute fracture or traumatic subluxation. ACT 112: Negative or not required by law. Electronically signed by: Jessee Harris M.D. 03/21/2020 3:30 PM Dictated: 03/21/201526Transcribed: 03/21/201526 Hospital Course (1) Fall: (2) Elevated troponin: (3) Depression: (4) Hypertension: (5) History of CVA (cerebrovascular accident): (6) PVD (peripheral vascular disease): The patient is a 70-year-old female recently hospitalized for acute stroke who was sent back from the senior living facility after a fall during transfer from her wheelchair to bed. When she was found she was alert and appa rently had not lost consciousness as staff showed up right away, and she was at baseline mental status. However, the nurse reported that her pupils were less reactive, therefore, she was sent in for evaluation. On arrival to the ER it was difficult to get a history from the patient, as she likely has some progression of underlying vascular dementia. She intermittent declines physical exams or questioning depending on her mood at the time so a complete clinical picture can be hard to obtain. A CT of the head was performed revealing no acute intracranial bleed or trauma noted. A CT of the cervical spine as well as CT of the chest and abdomen pelvis was obtained. There was no evidence of acute traumatic injury. Significant vascular disease was noted in the upper extremities and carotid arteries. The patient was initially noted to be significantly hypotensive with blood pressures on her upper arms and transiently was placed on norepinephrine drip for about 10 minutes. After further review of the medical record the ER physician realized that the patient had significant stenosis in the upper extremities and the blood pressure had to be taken in the thighs. The patient was actually significantly hypertensive at this point and the vasopressors were immediately turned off. The patient was noted to have a mild troponin elevation with some scattered T wave inversions but no evidence of ACS was noted. The patient was also not complaining of chest pain, however, she was given a dose of aspirin. She was admitted to the hospitalist service and troponin was trended and did not escalate overnight. Once her home antihypertensives were restarted her blood pressure improved appropriately. Cardiology was consulted and felt the EKG findings and clinical picture did not suggest acute coronary syndrome and suspected multifactorial contributions to the EKG changes including longstanding hypertension, a recent cerebrovascular event, and hypokalemia. Troponins again were mildly elevated but flat without evolution suggesting acute injury or ischemia. Furthermore the patient remained at extremely high risk for any coronary intervention given the degree of aortic atheromatous disease, prior thromboemboli and poor access for an interventional target. DVT chemoprophylaxis was not given in the setting of known recent epistaxis that was severe on DAPT (needed for secondary stroke prophylaxis) and heparin during recent hospitalization. Her clinical picture remained stable and she was ultimately transferred back to rehab for continued physical rehabilitation post stroke. Of note, her dysarthria was markedly improved from last week. Close primary care follow-up was recommended. Total Time Total Time Spent Total Time Spent (In Minutes): 30 Total Time Includes: Examination of the Patient, Discharge Planning, Medication Reconciliation and Communication With Other Providers Discharge Plan Discharge Items Patient Disposition: Transfer Care Home Fac Reason For Visit: FALL Discharge Diagnosis: Fall Physical deconditioning Condition on Discharge: Good Activity: Resume your previous activity Non-emergency contact: Primary Care Provider Call non-emergency contact if: you have any medication questions, your symptoms worsen, your pain is not controlled, your pain is worsening, your pain is unusual for you, your pain is concerning for you and you have a fever Follow-up/Referrals: Satinder Lee MD [Primary Care Provider] - Diet: Regular Diet Texture: Easy to Chew Addtl Attending Provider Instructions: Please continue all medications as listed on discharge below. It is recommended that you follow-up closely with your primary care provider when you are discharged from rehab to continue to increase your sertraline as needed for good effect. It was a pleasure taking care of you! Please call if you have any questions or problems. You can reach a [facility] hospitalist on duty at [facility] 24 hours a day by calling [phone]. Take care of yourself. Alexandra Johnson, DO [facility] Pending Studies at Discharge: No Stand-Alone Forms: My [facility] Skilled Items Patient informed of condition?: Yes DNR: Yes Discharge Level of Care: Skilled Communicable Disease: No Discharge Prognosis: Stable Lines: None Urinary Catheter: No Medications and DC Order Prescriptions: Continued multivitamin Tablet 1 tab PO QAM RF: 0 atorvastatin 80 mg Tablet 80 mg PO HS RF: 0 furosemide [Lasix] 20 mg tablet 10 mg PO QAM RF: 0 acetaminophen [Tylenol Extra Strength] 500 mg Tablet 500 mg PO QID MDD 3G PRN (Reason: Pain) RF: 0 famotidine 20 mg tablet 20 mg PO BID RF: 0 acetaminophen [Tylenol] 325 mg Tablet 650 mg PO Q4H MDD 3G PRN (Reason: Fever) RF: 0 metoprolol succinate 50 mg tablet extended release 24 hr 50 mg PO QAM RF: 0 timolol maleate 0.5 % drops 1 drp OPL QAM RF: 0 spironolactone 25 mg tablet 12.5 mg PO QAM RF: 0 aspirin 81 mg Tablet,Delayed Release (Dr/Ec) 81 mg PO DAILY RF: 0 Vitron-C 65 mg iron- 125 mg tablet,delayed release (DR/EC) 1 tab PO DAILY RF: 0 cholecalciferol (vitamin D3) 50 mcg (2,000 unit) Capsule 50 mcg PO DAILY RF: 0 amoxicillin 500 mg Capsule 2,000 mg PO ONCE PRN (Reason: 1 HR PRIOR TO DENTAL APPT.) RF: 0 clopidogrel [Plavix] 75 mg Tablet 75 mg PO QAM RF: 0 pantoprazole [Protonix] 20 mg Tablet,Delayed Release (Dr/Ec) 20 mg PO DAILYBB RF: 0 loratadine [Claritin] 10 mg Tablet 10 mg PO DAILY RF: 0 levetiracetam 500 mg Tablet 500 mg PO BID RF: 0 amlodipine [Norvasc] 5 mg Tablet 5 mg PO QAM Qty: 30 RF: 1 sertraline 50 mg Tablet 25 mg PO QAM Qty: 30 RF: 0 Discharge Orders: Discharge Order (Routine); Ordered 03/23/20 Ordered By: Alexandra Johnson Admission Data Admit Date/Time: 03/22/20 17:32 Attending Provider: Alexandra Johnson Admit Provider: Alexandra Johnson Primary Care Provider: Satinder Lee Other Providers: Olinda Kerns [place] ; Alexandra Johnson ; Mart Salas Other Interventions: Discharge Summary Assessment (RN) Last Done: 03/23/20 11:40
--- NOTE | 2020-03-30 10:18 | Coding Query ---
CODING QUERY To promote full compliance with coding requirements relating to patient care, provider participation is requested in all cases of computer lab aide uncertainty. Please assist us with the question(s) below: Coding Question(s): 1. There is documentation on the ER H&P of , "recent history of hospitalization for stroke, peripheral vascular disease, carotid stenosis, hypertension, continued deficits regarding vision and voice from prior stroke presenting today the ambulance from her nursing facility reported with likely fall she was found on the floor between noon and 1230 and some possible increased right-sided weakness.". The increased right sided weakness is not documented past the ER. Please specify below, in your clinical opinion, regarding the increased right sided weakness. ( ) increased right sided weakness is likely sequela of recent stroke ( ) increased right sided weakness is Not likely a sequela of recent stroke ( ) increased right sided weakness is Other: Please Specify ( x ) increased right sided weakness is Ruled -Out Increased right sided weakness was mentioned historically through the prehospital communication to the ER physician. However, he noted symmetric strength on his examination. On my exam on the floor she was less than cooperative with questioning or an exam as noted, and this was a pattern of behavior for her. However, her strength appeared symmetric at that time, too. 2. The patient was admitted after falling and the Discharge Summary documents, "Fall due to sequela of recent stroke". Please specify below, in your clinical opinion, regarding the sequela of recent stroke causing the fall. ( x ) the fall itself is the sequela of the recent stroke PT notes during this admission that "She displayed deficits with bed mobility, transfers, ambulation, endurance, and overall mobility." She was transferring from the wheelchair to the bed when she fell. After this last stroke for which she was admitted on 03/10/2020 it is noted in the admission that she was somnolent, exhibiting right leg and right arm weakness, tremulous, exhibiting difficulty speaking. These issues appeared to improve prior to discharge but were not completely resolved which was part of the reason for her transfer to the SNF, and likely contributed to her fall through deconditioning. There was a cognitive aspect to her case where she intermittently appeared confused and disoriented and was exhibiting depressive symptoms and having intermittent hallucinations. This had been going on at home and had progressed per my conversation with her . Cognitive decline, and questionable judgement, again thought to be related to her cerebrovascular disease, likely contributed to this fall. ( ) the fall was caused by sequela of recent stroke. Please specify below, the sequela of the recent stroke that caused the fall: ( ) increased right sided weakness ( ) Vascular Dementia ( ) Other Sequela: Please Specify ( ) Other: Please Specify Physician's Response(s): please ses above. Thanks, Alexandra Johnson, DO Thank you Kendra Strong Principal Diagnosis: "that condition established after study, to be chiefly responsible for occasioning the admission of the patient to the hospital for care." Co-Existing Principal Diagnosis: "when two or more diagnoses equally meet the criteria for principal diagnosis as determined by the circumstances of admission, diagnostic work up, and/or therapy provided, and the Alphabetic Index, Tabular List, or another coding guideline does not provide sequencing direction, any one of the diagnoses may be sequenced first." "When the physician has documented what appears to be a current diagnosis in the body of the record, but has not included the diagnosis in the final diagnostic statement, the physician should be asked whether the diagnosis should be added." (Source [facility]oding [facility] 2 QTR90. p3-4) KARISHMA
== END 2020-03-23 12:36 | DRG 57 ==
LOC: ED 13:45 → 2W 13:45 → 3W 03-23 04:12